=== PATIENT | male | born 1955 | race Caucasian/White ===

== ENCOUNTER 2020-02-06 09:22 | Outpatient (CLI) | payer MEDICARE, SELFPAY ==
[2020-02-06 09:58] LABS: Cholesterol 94 mg/dL (0-200); HDL Direct 26 mg/dL; Triglycerides 102 mg/dL (<150)
[2020-02-06 10:10] LABS: LDL Cholesterol Direct 40 mg/dL
== END 2020-02-06 09:23 | disposition home or self-care (01) ==
PROVIDERS: PCP Internal Medicine; Visit Provider Nurse Practitioner Adult Health
DX: E11.69 Type 2 diabetes mellitus with other specified complication (principal); E78.5 Hyperlipidemia, unspecified
CPT/HCPCS: 36415; 80061

== ENCOUNTER 2020-05-25 13:33 | Outpatient (CLI) | payer MEDICARE, SELFPAY ==
--- NOTE | ~2020-05-25 | US_ITS ---
EXAMINATION: US renal BI DATE: 05/25/2020 14:08 INDICATION: Stage IV chronic kidney disease. TECHNIQUE: Multiple ultrasound grayscale images of the kidneys were obtained. COMPARISON: None. FINDINGS: The right kidney measures 10.6 x 6.5 x 4.7 cm. The left kidney measures 11.1 x 5.4 x 4.7 cm. The kidn eys demonstrate normal echogenicity. 1.9 cm anechoic cyst at the lower pole of the right kidney. Ther e is no hydronephrosis in either kidney. No stones identified. The bladder is normal. IMPRESSION: 1. 1.9 cm right renal cyst. Otherwise normal kidneys without hydronephrosis. Reviewed, dictated and finalized at location A. GER SUPPLIER
== END 2020-05-25 13:34 | disposition home or self-care (01) ==
PROVIDERS: PCP Internal Medicine; Visit Provider Internal Medicine Nephrology
DX: N18.4 Chronic kidney disease, stage 4 (severe) (principal); E11.22 Type 2 diabetes mellitus with diabetic chronic kidney disease; N28.1 Cyst of kidney, acquired
CPT/HCPCS: 76775

== ENCOUNTER 2020-08-15 13:27 | Outpatient (CLI) | payer MEDICARE, SELFPAY | END 2020-08-15 13:28 | disposition home or self-care (01) | PROVIDERS: PCP Internal Medicine | DX: Z23 Encounter for immunization (principal) | CPT/HCPCS: 0001A; 91300 ==

== ENCOUNTER 2020-09-05 13:11 | Outpatient (CLI) | payer MEDICARE, SELFPAY | END 2020-09-05 13:12 | disposition home or self-care (01) | LOC: ANHCOVIDVC 13:11 | PROVIDERS: PCP Internal Medicine | DX: Z23 Encounter for immunization (principal) | CPT/HCPCS: 0002A; 91300 ==

== ENCOUNTER 2021-01-30 09:55 | Emergency (ER) | payer MEDICARE, SELFPAY ==
--- NOTE | ~2021-01-30 | XR_ITS ---
XR chest 1V 01/30/2021 10:22 Indication: Congestion. Low oxygen saturations. Procedure: AP view of the chest Comparison: Comparison to multiple prior studies sequentially, with oldest reviewed study dated 12/2015. Findings: Patchy bilateral airspace disease, compatible with pneumonia. Pacemaker leads stable. Small pleural effusions. No pneumothorax. No acute osseous abnormality. Impression: 1: Patchy bilateral airspace disease, compatible with pneumonia. Reviewed, dictated and finalized at location A. Impression: 1: Patchy bilateral airspace disease, compatible with pneumonia.
[2021-01-30 10:05] VITALS: BP 120/69; PULSE 83; RESP 16; TEMP 36.2; O2SAT 89
[2021-01-30 10:10] VITALS: O2SAT 88
[2021-01-30 10:28] VITALS: BP 120/69; PULSE 83; RESP 16; TEMP 36.2; O2SAT 89
--- NOTE | 2021-01-30 10:29 | ED.URI ---
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 Patient states he has a couple day history of shortness of breath that is worse with exertion. No fever measured, cough, calf pain/edema, med noncompliance, chest pain, loss of taste/smell, vomiting/diarrhea/dehydration. [id number] testing for Covid is negative; screening chest x-ray shows bilateral interstitial infiltrates consistent with pneumonia. Vital signs remarkable for hypoxemia 88%, quickly improved with O2t. Patient advised to go to hospital by EMS , which he agrees. Related Data Home Medications Medication Instructions Recorded Confirmed albuterol sulfate 90 mcg/actuation 1 puff INHALATION Q4H PRN 05/09/19 01/30/21 aerosol inhaler allopurinol 100 mg tablet 100 mg PO BID 05/09/19 01/30/21 aspirin 81 mg tablet,delayed 81 mg PO DAILY 05/09/19 01/30/21 release ezetimibe 10 mg tablet 10 mg PO DAILY 05/09/19 01/30/21 furosemide 40 mg tablet 20 mg PO QAM tablet 05/09/19 01/30/21 nitroglycerin 0.4 mg sublingual 0.4 mg SUBLINGUAL Q5M PRN 05/09/19 01/30/21 tablet cholecalciferol (vitamin D3) 125 5,000 unit PO BID cap 02/07/20 01/30/21 mcg (5,000 unit) capsule carvedilol 25 mg tablet 12.5 mg PO Q12H tablet 10/08/20 01/30/21 clopidogrel 75 mg tablet 75 mg PO DAILY 10/08/20 01/30/21 tamsulosin 0.4 mg capsule 0.4 mg PO DAILY 10/08/20 01/08/21 prednisolone acetate 1 drp EACH EYE DAILY 01/30/21 01/30/21 Allergies Allergy/AdvReac Type Severity Reaction Status Date / Time enalapril Allergy Unknown COUGH Verified 01/30/21 10:13 Iodinated Contrast Media Allergy Unknown Hives Verified 01/30/21 10:13 Contrast Media Allergy Unknown RASH Uncoded 01/30/21 10:13 Review of Systems Review of Systems: General/Constitutional: No weight loss,fever Eyes: N0: Redness,discharge Ears/Nose/Throat: No: Epistaxis,ear discharge Respiratory: Denies: Hemoptysis Gastrointestinal: No Vomiting, Bleeding-rectal Skin: No Lumps, eruption Neurologic: No Focal Weakness,Sz Hematologic: Denies: Petechiae/Purpura Psychiatric: No: Suicida ideationl All Other Systems: Reviewed and Negative [facility] Past Medical History Medical History Chronic kidney disease (CKD) stage G5/A3, glomerular filtration rate (GFR) less than or equal to 15 mL/min/1.73 square meter and albuminuria creatinine ratio greater than 300 mg/g CKD stage 4 due to type 2 diabetes mellitus COPD (chronic obstructive pulmonary disease) Coronary artery disease Diabetes mellitus Hyperlipidemia, unspecified Hypertension Non compliance with medical treatment Surgical History Surgical History History of ankle surgery Left Status post cardiac pacemaker procedure Status post insertion of drug-eluting stent into left anterior descending (LAD) artery for coronary artery disease Family History Family History Father Family history of premature coronary heart disease, Onset Age: 53 Cerebrovascular accident Patient's father is Diabetes mellitus Hypertension Family history of cardiovascular disease Sibling Carcinoma of colon, Onset Age: 39 Mother Patient's mother is , Onset Age: 73 Social History Social History Smoking status: Never smoker Alcohol intake: never Gender identity (if verbalized by the patient): Male Comments General/Constitutional: No weight loss,fever Eyes: N0: Redness,discharge Ears/Nose/Throat: No: Epistaxis,ear disch
[2021-01-30 10:40] VITALS: PULSE 83; RESP 20; O2SAT 99
--- NOTE | 2021-01-30 14:44 | ECG_ITS ---
Measurements Intervals [place] Rate: 82 P: 46 MD: 154 QRS: -19 QRSD: 98 T: 3 QT: 366 QTc: 430 Interpretive Statements SINUS RHYTHM INFERIOR INFARCT, AGE INDETERMINATE BORDERLINE ST-T WAVE ABNORMALITY- ANTEROLAT/HIGH LAT LEADS BASELINE ARTIFACT- I, II, III, AVR, AVL, AVF, V1-V6 ABNORMAL ECG Electronically Signed On 01-30-2021 15:16:01 CDT by William Mayfield D.O.
== END 2021-01-30 10:51 | disposition short-term general hospital (02) ==
PROVIDERS: Emergency Provider Emergency Medicine; PCP Internal Medicine
DX: R09.02 Hypoxemia (principal); R91.8 Other nonspecific abnormal finding of lung field; Z20.822 Contact with and (suspected) exposure to COVID-19; I13.11 Hypertensive heart and chronic kidney disease without heart failure, with stage 5 chronic kidney disease, or end stage renal disease; E11.22 Type 2 diabetes mellitus with diabetic chronic kidney disease; N18.5 Chronic kidney disease, stage 5; J44.9 Chronic obstructive pulmonary disease, unspecified; I25.10 Atherosclerotic heart disease of native coronary artery without angina pectoris; E78.5 Hyperlipidemia, unspecified; Z95.5 Presence of coronary angioplasty implant and graft; Z95.810 Presence of automatic (implantable) cardiac defibrillator
CPT/HCPCS: 71045; 87426; 93005; 99215; C9803; G0463

== ENCOUNTER 2021-01-30 11:05 | Observation (INO) | payer MEDICARE, SELFPAY ==
[2021-01-30] VITALS (21 sets, daily range): BP systolic 152–174; BP diastolic 71–95; PULSE 84–95; RESP 12–26; TEMP 36.4–37; O2SAT 90–100; BMI 32.6
--- NOTE | ~2021-01-30 | US_ITS ---
EXAMINATION: US renal BI DATE: 01/31/2021 14:01 INDICATION: Decreased kidney function. TECHNIQUE: Multiple ultrasound grayscale images of the kidneys were obtained. COMPARISON: Ultrasound 05/25/2020 FINDINGS: The right kidney measures 9.3 x 5.8 x 5.9 cm. The left kidney measures 11.1 x 5.6 x 5.9 cm. The kidne ys demonstrate normal parenchymal echogenicity. There is a 3.3 cm cyst in right kidney. There is no h ydronephrosis. The bladder is normal. IMPRESSION: 1. Normal kidney sizes. No hydronephrosis. Reviewed, dictated and finalized at location B.
--- NOTE | ~2021-01-30 | NM_ITS ---
EXAMINATION: NM pulmonary perfusion DATE: 01/30/2021 14:22 INDICATION: Shortness of breath TECHNIQUE: 5.4 mCi Tc-99m MAA by intravenous route. Scintigraphic images of the chest were obtained. COMPARISON: Chest radiograph dated 01/30/2021 FINDINGS: There is relatively homogeneous perfusion throughout the lungs. No discrete ventilation perfusion de fects identified. IMPRESSION: 1. Normal study. Low probability for pulmonary embolism. Reviewed, dictated and finalized at location A.
--- NOTE | ~2021-01-30 | CT_ITS ---
EXAMINATION: CT diagnostic chest wo con DATE: 01/30/2021 23:26 INDICATION: Pneumonia TECHNIQUE: Computed tomography (CT) of the chest was performed without intravenous contrast. Automate d exposure control and iterative reconstruction technique were employed. Exam dose: 357.76 mGy-cm to magdalena exam DLP. COMPARISON: 01/30/2021 pulmonary perfusion scan 01/30/2021 portable AP chest 04/01/2019 CT chest FINDINGS: Left-sided pacemaker device with leads in right atrium and right ventricle. Bilateral gynecomastia. Cardiomegaly. No pericardial or pleural effusion Prominent coronary artery calcification. There is thoracic aortic and great vessel calcification. No thoracic aortic aneurysm. There are patchy bilateral pulmonary infiltrates, most prominent in the upper lobes, right greater th an left There is mild atelectasis at the lung bases. Moderate elevation of the right leaf of the diaphragm. Multiple hepatic and calcified splenic granulomas consistent with old granulomatous disease. Normal morphology of the adrenal glands. Included skeletal structures are unremarkable. IMPRESSION: Extensive patchy bilateral pulmonary infiltrates, with upper lobe predominance, right gr eater than left, most likely due to bilateral pneumonia Reviewed, dictated and finalized at Location A. Reviewed, dictated and finalized at location A. IMPRESSION: Extensive patchy bilateral pulmonary infiltrates, with upper lobe predominance, right greater than left, most likely due to bilateral pneumonia
--- NOTE | 2021-01-30 11:11 | ECG_ITS ---
Measurements Intervals [place] Rate: 85 P: 40 SC: 151 QRS: -21 QRSD: 101 T: 10 QT: 375 QTc: 446 Interpretive Statements SINUS RHYTHM INFERIOR INFARCT, AGE INDETERMINATE BORDERLINE ST-T WAVE ABNORMALITY- LAT/HIGH LAT LEADS BASELINE ARTIFACT- I, II ABNORMAL ECG Electronically Signed On 01-30-2021 11:17:22 CDT by William Mayfield D.O.
--- NOTE | 2021-01-30 11:43 | ED.GENADULT ---
HPI - General Adult General Chief complaint: Shortness of Breath/Dyspnea Stated complaint: DIFFICULTY BREATHING Time Seen by Provider: 01/30/21 11:05 Source: patient History of Present Illness HPI narrative: Patient is a 65 y/o male complaining of severe SOB since last week. He states that inhaler helps somewhat. He also has some cough and chest pain. He describes his chest pain as a pressure in mid sternal area. He rates his chest pain as 4/10. He was seen at urgent and was found to be hypoxic with sat in 80s. He was placed on O2 and sent here by EMS. CXR done at urgent care showed bilateral infiltrates. Related Data Home Medications Medication Instructions Recorded Confirmed albuterol sulfate 90 mcg/actuation 1 puff INHALATION Q4H PRN 05/09/19 01/30/21 aerosol inhaler allopurinol 100 mg tablet 100 mg PO BID 05/09/19 01/30/21 aspirin 81 mg tablet,delayed 81 mg PO DAILY 05/09/19 01/30/21 release ezetimibe 10 mg tablet 10 mg PO DAILY 05/09/19 01/30/21 furosemide 40 mg tablet 20 mg PO QAM tablet 05/09/19 01/30/21 nitroglycerin 0.4 mg sublingual 0.4 mg SUBLINGUAL Q5M PRN 05/09/19 01/30/21 tablet cholecalciferol (vitamin D3) 125 5,000 unit PO BID cap 02/07/20 01/30/21 mcg (5,000 unit) capsule carvedilol 25 mg tablet 25 mg PO Q12H tablet 10/08/20 01/30/21 clopidogrel 75 mg tablet 75 mg PO DAILY 10/08/20 01/30/21 tamsulosin 0.4 mg capsule 0.4 mg PO DAILY 10/08/20 01/30/21 prednisolone acetate 1 drp EACH EYE DAILY 01/30/21 01/30/21 Allergies Allergy/AdvReac Type Severity Reaction Status Date / Time enalapril Allergy Unknown COUGH Verified 01/30/21 16:48 Iodinated Contrast Media Allergy Unknown Hives Verified 01/30/21 16:48 Contrast Media Allergy Unknown RASH Uncoded 01/30/21 16:48 Review of Systems Constitutional: Constitutional: Denies chills, Denies fever(s), Denies headache(s) and Denies weakness Eyes: Eyes: Denies blurry vision ENT: Denies headache(s) and Denies neck pain Cardiovascular: Cardiovascular: Reports chest pain and Reports dyspnea Respiratory: Respiratory: Reports cough and Reports dyspnea Gastrointestinal: Gastrointestinal: Denies abdominal pain, Denies diarrhea, Denies nausea and Denies vomiting Genitourinary: Genitourinary: Denies hematuria and Denies dysuria Musculoskeletal: Musculoskeletal: Denies back pain and Denies neck pain Neurologic: Denies headache(s) and Denies weakness [facility] Past Medical History Medical History Chronic kidney disease (CKD) stage G5/A3, glomerular filtration rate (GFR) less than or equal to 15 mL/min/1.73 square meter and albuminuria creatinine ratio greater than 300 mg/g CKD stage 4 due to type 2 diabetes mellitus COPD (chronic obstructive pulmonary disease) Coronary artery disease Diabetes mellitus Hyperlipidemia, unspecified Hypertension Non compliance with medical treatment Surgical History Surgical History History of ankle surgery Left Status post cardiac pacemaker procedure Status post insertion of drug-eluting stent into left anterior descending (LAD) artery for coronary artery disease Family History Family History Father Family history of premature coronary heart disease, Onset Age: 53 Cerebrovascular accident Patient's father is Diabetes mellitus Hypertension Family history of cardiovascular disease Sibling Carcinoma of colon, Onset Age: 39 Mother Patient's mother is , Onset Age: 73 Social History Social History Smoking status: Former smoker Tobacco type: cigarettes Additional smoking assessment comments: Patient reports he smoked very little for 2 months while a teenager Alcohol intake: never Gender identity (if verbalized by the patient): Male Exam Const: General: n
[2021-01-30 11:49] LABS: Basophils Percent Auto 0.2 % (0.2-1.2); Hematocrit 27.8 % (42.0-52.0); Hemoglobin 8.9 g/dL (14.0-18.0); Immature Granulocyte Absolute 0.04 K/mm3 (0.00-0.031); Immature Granulocyte Percent A 0.4 % (0-0.5); Lymphocytes Absolute Auto 1.06 K/mm3 (0.9-3.2); Lymphocytes Percent Auto 10.8 % (18.3-44.2); Mean Corpuscular Hemoglobin 31.3 pg (26-34); Mean Corpuscular Volume 97.9 fl (80-100); Monocytes Percent Auto 9.9 % (2.6-8.5); Neutrophils Absolute Auto 7.7 K/mm3 (1.3-6.7); Neutrophils Percent Auto 78.7 % (45.5-73.1); Platelet Count Result 170 k/mm3 (150-375); Red Blood Count 2.84 M/mm3 (4.6-6.20); Red Cell Distribution Width 14.8 % (11.5-14.5); White Blood Count 9.8 K/mm3 (4.5-10.0)
[2021-01-30 12:05] LABS: D Dimer 0.93 ug/mL (<0.48)
[2021-01-30 12:06] LABS: Alanine Aminotransferase 23 U/L (4-50); Albumin Level 3.5 g/dL (3.5-5.1); Alkaline Phosphatase 83 U/L (38-126); Anion Gap 4 mmol/L (8-16); Aspartate Amino Transferase 31 U/L (17-59); Bilirubin,Total 0.9 mg/dL (0.2-1.3); Blood Urea Nitrogen 55 mg/dL (9-20); Calcium 8.2 mg/dL (8.4-10.2); Carbon Dioxide 26 mmol/L (22-30); Chloride 109 mmol/L (98-107); Estimated CRCL calculation 22 ml/min; Estimated Glomerular Filt Rate 16; Glucose 100 mg/dL (65-110); Potassium 4.5 mmol/L (3.4-5.0); Sodium 139 mmol/L (137-145)
[2021-01-30 12:09] LABS: NT Pro B Type Natriuretic Pept 5460 pg/mL (5-100)
[2021-01-30 12:24] LABS: Troponin I 0.047 ng/mL (0.000-0.034)
[2021-01-30] MEDS: FUROSEMIDE INJ 40 MG/4 ML VIAL IV PUSH (13:21)
[2021-01-30 15:13] LABS: Troponin I 0.049 ng/mL (0.000-0.034)
--- NOTE | 2021-01-30 16:58 | PC.NURSE ---
Pt. requesting Rn update Tabatha that he will be staying in hospital . Tabatha notified
--- NOTE | 2021-01-30 17:00 | ADMGEN ---
This patient, Freddie Valero, was admitted to IMU Room 209-. Patient/family oriented to hospital policies and general routines including ID bracelet, bed and alarms, visiting hours, pain management, procedures, bathroom and other care routines, personal items, smoking policy, room service/diet, and visiting hours. Information on how to activate the Rapid Response Team has been discussed. Patient/Family are encouraged to report perceived risks to care and to ask questions if they do not understand what they are told or what they should do.
[2021-01-30 17:31] LABS: Glucose Point of Care 82 mg/dl (65-105)
[2021-01-30 18:26] LABS: Troponin I 0.047 ng/mL (0.000-0.034)
--- NOTE | 2021-01-30 19:42 | PM.IMHP ---
H&P: HPI History of Present Illness Date/Time: 01/30/21 19:42 Chief Complaint: Shortness of breath Narrative: Patient is a 65 y/o male who presents to the ED after being referred from urgent care. He reports he has been having shortness of breath over the past week which has been progressively getting worse. He has also describes a chest pressure which he had in the midsternal area this morning. He rates the chest pain at 4/10. He denies any leg swelling. He does report cough with whitish phlegm for the past several weeks now. No wheezing. He also reports mild grade fever that he had noticed as he normally is around 97? however was noted to have 99? temperature at home. In the urgent care his reported he was hypoxic with saturation in 80s he is placed on oxygen and was sent to ER for evaluation. Chest x-ray done in urgent care showed bilateral infiltrates. The result is not available for me to review. His WBC count was normal at 9.8 in the ED hemoglobin 8.9 which is about similar from the previous lab values. EKG had nonspecific ST-T changes which looked similar to previous EKGs in the past. His troponin was mildly elevated and BNP was 5460 D-dimer was elevated for which nuclear lung scan was done which was with low probability of for PE. He had chest x-ray which showed patchy bilateral airspace disease compatible with pneumonia. He is admitted for further evaluation and management. Review of Systems Review of Systems: - CONSTITUTIONAL: Denies weight loss, fever and chills. - HEENT: Denies changes in vision and hearing - RESPIRATORY: Reports SOB and cough. - CV: Denies palpitations and reports CP. - GI: Denies abdominal pain, nausea, vomiting and diarrhea. - : Denies dysuria and urinary frequency. - MSK: Denies myalgia and joint pain. - SKIN: Denies rash and pruritus. - NEUROLOGICAL: Denies headache and syncope. - PSYCHIATRIC: Denies recent changes in mood. Denies anxiety and depression. All systems reviewed & are unremarkable except as noted in HPI and below Constitutional: Constitutional: Reports fatigue and Reports weakness Neurologic: Reports weakness Endocrine: Endocrine: Reports fatigue PMFSH Past Medical History Medical History Chronic kidney disease (CKD) stage G5/A3, glomerular filtration rate (GFR) less than or equal to 15 mL/min/1.73 square meter and albuminuria creatinine ratio greater than 300 mg/g CKD stage 4 due to type 2 diabetes mellitus COPD (chronic obstructive pulmonary disease) Coronary artery disease Diabetes mellitus Hyperlipidemia, unspecified Hypertension Non compliance with medical treatment Surgical History Surgical History History of ankle surgery Left Status post cardiac pacemaker procedure Status post insertion of drug-eluting stent into left anterior descending (LAD) artery for coronary artery disease Family History Family History Father Family history of premature coronary heart disease, Onset Age: 53 Cerebrovascular accident Patient's father is Diabetes mellitus Hypertension Family history of cardiovascular disease Sibling Carcinoma of colon, Onset Age: 39 Mother Patient's mother is , Onset Age: 73 Social History Social History Smoking status: Former smoker Tobacco type: cigarettes Additional smoking assessment comments: Patient reports he smoked very little for 2 months while a teenager Alcohol intake: never Substance use: never Gender identity (if verbalized by the patient): Male Spiritual care concerns: No Meds Home Medications and Allergies Home Medications Medication Instructions Recorded Confirmed Type albuterol sulfate 90 mcg/actuation 1 puff INHALATION Q4H PRN 05/09/19 08
[2021-01-30 20:46] LABS: Glucose Point of Care 143 mg/dl (65-105)
[2021-01-30] MEDS: allopurinoL 100 MG TABLET PO (21:03)
[2021-01-30] MEDS: CHOLECALCIFEROL 1,000 UNITS TABLET 5000 UNITS PO (21:03)
[2021-01-30] MEDS: carvediloL 25 MG TABLET PO (21:03)
[2021-01-31] VITALS (17 sets, daily range): BP systolic 143–180; BP diastolic 76–82; PULSE 77–85; RESP 12–18; TEMP 36.3–37.6; O2SAT 92–99
--- NOTE | 2021-01-31 | ECHO_ITS ---
Patient Info Name: Freddie Valero Age: 65 years : 1955 Gender: Male Ht: 70 in Wt: 227 lbs BSA: 2.29 m2 HR: 81 bpm BP: 175 / 80 mmHg Heart Rhythm: Sinus Rhythm Exam Date: 02/01/2021 9:32 AM Exam Location: [facility] Patient Status: Outpatient Admit Date: 01/30/2021 Staff Ordering Physician: Chente Cochran MD Pcb Design Engineer: Johnathon Wesley, NIDA, RT Attending Provider: Le Osman MD Exam Type: CA echo doppler color flow Study Info Indications I50.9 - Heart failure, unspecified Complete two-dimensional, color flow and Doppler transthoracic echocardiogram is performed with contrast to opacify the left ventricle and to improve the deliniation of the left ventricle endocardial borders. Summary 1. Left ventricular systolic function is normal, estimated at 55%. 2. There is moderately increased left ventricular wall thickness. 3. The left ventricular diastolic function is grade I diastolic dysfunction. 4. Left atrial chamber dimension is mildly enlarged. 5. There is mild mitral valve regurgitation. 6. There is trace tricuspid valve regurgitation. 7. Unable to estimate PA systolic pressure due to poor spectral resolution of tricuspid regurgitant jet velocity. Left Ventricle Left ventricular chamber dimension is normal. Left ventricular systolic function is normal, estimated at 55%. There is moderately increased left ventricular wall thickness. The left ventricular diastolic function is grade I diastolic dysfunction. Right Ventricle Right ventricular chamber dimension is normal. Right ventricular systolic function is normal. Linear artifact in right ventricle suggestive of catheter(s), pacemaker lead(s), or ICD lead(s). Left Atria Left atrial chamber dimension is mildly enlarged. Right Atria Right atrial chamber dimension is normal. Linear artifact in the right atrium suggestive of catheter(s), pacemaker lead(s), or ICD lead(s). Aortic Valve The aortic valve is trileaflet. There is mild aortic valve sclerosis. There is no aortic valve stenosis. There is no aortic valve regurgitation. Pulmonic Valve The pulmonic valve is not well visualized. There is trace pulmonic regurgitation. Mitral Valve The mitral valve has normal leaflets. There is mild mitral valve regurgitation. The mitral valve annulus is moderately calcified. Tricuspid Valve The tricuspid valve leaflets are normal. There is trace tricuspid valve regurgitation. Unable to estimate PA systolic pressure due to poor spectral resolution of tricuspid regurgitant jet velocity. Pericardium/Pleural The pericardium appears normal. There is small pericardial effusion. Aorta The aortic root size at the sinus of Valsalva is normal. There is mild aortic atherosclerosis. Left Ventricular Outflow Tract Name Value Normal LVOT 2D LVOT Diameter 2.1 cm LVOT Doppler LVOT Peak Gradient 4 mmHg LVOT Mean Gradient 2 mmHg LVOT VTI 22 cm LVOT VTI/AV VTI Ratio 0.9 LVOT Stroke Volume 73
--- NOTE | 2021-01-31 07:18 | PM.CNNEP ---
Assessment and Plan Assessment and plan (1) Chronic kidney disease, stage 4 (severe): Code(s): N18.4 - Chronic kidney disease, stage 4 (severe) Status: Acute Assessment and Plan: The patient has chronic kidney disease stage. His baseline GFR is around 20. This is due to diabetes and hypertension. The patient has a higher creatinine than baseline right now. This is most likely due to pneumonia. He could also have rhabdomyolysis because of his illness and he is on a statin. So will check a CPK just in case. He is not on any new medications so I doubt that this is allergic interstitial nephritis. Obstruction is always a possibility so will get a renal ultrasound. Other possibilities include glomerulonephritis and vascular disease however these are less likely in this clinical scenario. (2) Pneumonia: Code(s): J18.9 - Pneumonia, unspecified organism Status: Acute Assessment and Plan: The patient has bilateral pneumonia. He is getting antibiotics and supportive care. (3) Hypertension: Code(s): I10 - Essential (primary) hypertension Status: Acute Assessment and Plan: His blood pressure was high on admission, possibly because of his illness . He is back on his home medications. His blood pressure seems a little better. Will keep an eye on this. (4) Type 2 diabetes mellitus with hyperglycemia, with long-term current use of insulin: Code(s): E11.65 - Type 2 diabetes mellitus with hyperglycemia; Z79.4 - director long term care (current) use of insulin Status: Acute Assessment and Plan: On Accu-Cheks and sliding-scale insulin (5) Coronary artery disease: Qualifiers: Coronary Disease-Associated Artery/Lesion type: [place] artery [place] vs. transplanted heart: [place] heart Associated angina: without angina Qualified Code(s): I25.10 - Atherosclerotic heart disease of [place] coronary artery without angina pectoris Code(s): I25.10 - Atherosclerotic heart disease of [place] coronary artery without angina pectoris Status: Acute Assessment and Plan: No chest pain right now. (6) Hyperlipidemia, unspecified: Code(s): E78.5 - Hyperlipidemia, unspecified Status: Acute Assessment and Plan: He is on atorvastatin History of Present Illness Reason for Consult Consult date: 01/31/21 Chief Complaint Chief complaint: chf,hypoxia History of Present Illness Narrative: Freddie is a very pleasant 65-year-old gentleman who has chronic kidney disease stage 4, diabetes, hypertension, coronary disease status post SD, stroke, and hyperlipidemia. I last saw him in the office in November when his GFR was around 20 and his creatinine was around 3. He has a history of noncompliance however lately his A1c has been better and his blood pressures been doing pretty well. The patient says that his trouble started day before yesterday when he started getting short of breath. He did not have a cough. He did have a little bit of a fever. He says he usually runs around 97 but he was 98.9. The patient's has been good with his low-salt diet. He does not have much swelling. He described substernal chest pressure yesterday morning but that is gone today. Nobody else in his house is sick. Yesterday he did not get better so he went to urgent care and his oxygen was only 80%. So he was sent over to [place] ER and admitted. and this was negative. The patient was evaluated in the ER. COVID test was negative. V/Q scan was low probability. Chest x-ray showed bilateral pneumonia. He was admitted and placed on antibiotics. He was placed on oxygen as well. His O2 sats are currently okay. Currently the patient feels a little bit better. He still short of breath but feels more comfortable with the oxygen. He is not having any chest pain. He has no bloody, foamy, or painful urination. No history of kidney stones or bladder infections. He has not gotten itto
[2021-01-31] MEDS: CHOLECALCIFEROL 1,000 UNITS TABLET 5000 UNITS PO ×2 (07:59→16:29)
[2021-01-31] MEDS: FUROSEMIDE 20 MG TABLET PO (08:00)
[2021-01-31] MEDS: EZETIMIBE 10 MG TABLET PO (08:00)
[2021-01-31] MEDS: carvediloL 25 MG TABLET PO ×2 (08:00→20:32)
[2021-01-31] MEDS: CLOPIDOGREL BISULFATE 75 MG TABLET PO (08:00)
[2021-01-31] MEDS: TAMSULOSIN HCL 0.4 MG CAPSULE PO (08:00)
[2021-01-31] MEDS: ASPIRIN 81 MG ENTERIC TABLET PO (08:00)
[2021-01-31] MEDS: allopurinoL 100 MG TABLET PO ×2 (08:00→16:29)
[2021-01-31] MEDS: LOSARTAN POTASSIUM 50 MG TABLET PO (08:00)
[2021-01-31] MEDS: amLODIPine BESYLATE 2.5 MG TABLET PO (08:00)
[2021-01-31] MEDS: ATORVASTATIN 40 MG TABLET 80 MG PO (08:00)
[2021-01-31] MEDS: prednisoLONE ACETATE 1% OPHTH 5 ML 1 DROP EACH EYE (08:01)
[2021-01-31 08:38] LABS: Creatine Kinase 64 U/L (55-170)
[2021-01-31 08:55] LABS: Glucose Point of Care 76 mg/dl (65-105)
--- NOTE | 2021-01-31 11:06 | PM.IMPN ---
Progress Note: A&P Assessment and Plan (1) Acute respiratory failure with hypoxia: Code(s): J96.01 - Acute respiratory failure with hypoxia Status: Acute Assessment and Plan: Patient presents feeling short of breath. He has been requiring 1-2 L/min of oxygen since admission. More likely related to pneumonia than CHF. V/Q scan was low probability for PE. Continue IV antibiotics. Add nebulizer treatments. Aspiration unlikely given the upper lobe predominance. (2) Pneumonia: Code(s): J18.9 - Pneumonia, unspecified organism Status: Acute Assessment and Plan: No fevers at home or here. White count normal. Minimal cough. Chest x-ray showed patchy bilateral airspace disease compatible with pneumonia. CT scan showed extensive patchy bilateral pulmonary infiltrates with upper lobe predominance right greater than left most likely due to bilateral pneumonia. Most likely pneumonia although patient with minimal symptoms despite the radiographic findings. Blood cultures are no growth to date. Check sputum. Check urine for Legionella and pneumococcal antigens. Continue Rocephin and azithromycin. Rapid COVID test was negative. Will check PCR to exclude COVID. (3) Elevated troponin: Code(s): R77.8 - Other specified abnormalities of plasma proteins Status: Acute Assessment and Plan: Troponin mildly elevated 0.049 but essentially flat. EKG shows old inferior OK but no acute ischemic changes but does have borderline ST T wave changes in the in the high lateral leads. Will check echocardiogram. Continue Lipitor, Plavix, aspirin and beta-smita (4) CKD (chronic kidney disease): Qualifiers: Chronic kidney disease stage: unspecified stage Qualified Code(s): N18.9 - Chronic kidney disease, unspecified Code(s): N18.9 - Chronic kidney disease, unspecified Status: Acute Assessment and Plan: Baseline creatinine back in September was 3.5. Patient currently with creatinine of 3.7 on admission. Patient states he is close to dialysis. Nephrology consulted and appreciate their input. (5) Hypertension: Code(s): I10 - Essential (primary) hypertension Status: Acute Assessment and Plan: Patient's blood pressure was reviewed on 01/31 Blood pressure has been mostly elevated with systolic blood pressure 1 40-170 since admission. Home Norvasc, Coreg and Cozaar resumed. Will continue current medications. Consider advancing Norvasc if blood pressure remains elevated. (6) Type 2 diabetes mellitus with hyperglycemia, with long-term current use of insulin: Code(s): E11.65 - Type 2 diabetes mellitus with hyperglycemia; Z79.4 - half-way (current) use of insulin Status: Acute Assessment and Plan: The patient's blood glucose was reviewed on 01/31 Glucose remains well controlled. Continue AccuCheks covering with sliding scale. Hypoglycemia protocol available as needed. Continue current medications. (7) Coronary artery disease: Qualifiers: Associated angina: without angina Coronary Disease-Associated Artery/Lesion type: [place] artery [place] vs. transplanted heart: [place] heart Qualified Code(s): I25.10 - Atherosclerotic heart disease of [place] coronary artery without angina pectoris Code(s): I25.10 - Atherosclerotic heart disease of [place] coronary artery without angina pectoris Status: Acute Assessment and Plan: Stable. Denies chest pain. Continue Lipitor, Plavix, aspirin and Coreg. (8) COVID-19 ruled out: Code(s): Z20.822 - Contact with and (suspected) exposure to COVID-19 Status: Acute Assessment and Plan: Rapid COVID test was negative on 01/30/21. COVID PCR was obtained for verification. Follow-up on results. (9) DVT prophylaxis: Code(s): Z29.9 - Encounter for prophylactic measures, unspecified Status: Acute Assessment and Plan: Heparin
[2021-01-31 11:48] LABS: Add Urine Microscopic? YES; Appearance Urine Clear (Clear); Bilirubin Urine Negative (Negative); Blood Urine Negative (Negative); Color Urine Straw (Yellow); Glucose Urine UA Negative (Negative); Ketones Urine Negative (Negative); Leukocyte Esterase Ur Negative LEU/UL (NEGATIVE); Nitrate Urine Negative (Negative); Protein Urine 3+ mg/dL (Negative); RBC Urine 0-2 /hpf (0-2); Specific Grav Ur 1.011 (1.001-1.035); Urobilinogen Urine Negative mg/dL (<2.0); WBC Urine 0-3 /hpf (0-3)
[2021-01-31 11:57] LABS: Creatinine Urine 59.6 mg/dL
[2021-01-31 12:20] LABS: Glucose Point of Care 72 mg/dl (65-105)
[2021-01-31 12:24] LABS: Sodium Urine Random 74 meq/L
--- NOTE | 2021-01-31 13:36 | PM.CNCAR ---
Assessment and Plan Assessment and plan (1) Acute respiratory failure with hypoxia: Code(s): J96.01 - Acute respiratory failure with hypoxia Status: Acute Assessment and Plan: Respiratory for problems with hypoxia and diffuse primarily upper lobe infiltrates associated with nasal congestion. There is no history of CHF. There is no edema or weight gain, or gallop rhythm, to suggest this is CHF. Does have an elevated BNP and, with his advanced chronic kidney disease, could have volume overload but this does not appear to be the case. His symptoms are probably from pneumonia. On antibiotic therapy. Repeat COVID screen pending. Will follow intermittently. (2) Coronary artery disease: Qualifiers: Coronary Disease-Associated Artery/Lesion type: [place] artery [place] vs. transplanted heart: [place] heart Associated angina: without angina Qualified Code(s): I25.10 - Atherosclerotic heart disease of [place] coronary artery without angina pectoris Code(s): I25.10 - Atherosclerotic heart disease of [place] coronary artery without angina pectoris Status: Acute Assessment and Plan: History of CAD. Does have some chest heaviness and elevated troponins but the troponins are flat and the heaviness is atypical. No ischemic changes on EKG. Stable CAD. (3) Chronic kidney disease, stage 4 (severe): Code(s): N18.4 - Chronic kidney disease, stage 4 (severe) Status: Acute History of Present Illness History of Present Illness Consult date/time: 01/31/21 13:36 Reason For Visit: chf,hypoxia Narrative: Date of service 01/31/2021 Mr. Freddie Valero is a 65-year-old white male whom I was asked to see at the request of the hospitalist Dr. Jagdeep Rivera for my advice and opinion regarding congestive heart failure in consultation. He has a history of pacemaker, CAD, and CKD stage [address] Paiz. Also: hypertension and hyperlipidemia as well as orthostasis. The patient has had progressive shortness of breath for the past week as well as some chest pressure. He thought he had a cold or sinus infection as he had a lot of nasal congestion and postnasal drip resulting in mild cough. Thursday night he ?thought I was going to ? because of shortness of breath and uses rescue inhaler for relief. He went to the emergency room yesterday, 01/30/2021. His O2 sat was in 80s and he was admitted from the emergency room. His chest x-ray shows a patchy infiltrates. COVID screen was negative at the urgent care and is being repeated. He denies any edema, weight gain, PND orthopnea. The chest discomfort felt like someone was sitting on his chest but was constant without aggravating or relieving factors. I follow Mr. 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 He also has a history of stroke in 2017, COPD, CKD stage for followed by Dr. Paiz, hypertension, diabetes and hyperlipidemia. Echocardiogram in 2017 showed an ejection fraction 51%, mild LVH, diastolic dysfunction and hypokinesis of the basal inferior septal segment. Lexiscan in 2019 showed a moderate size fixed inferior [place], no ischemia, EF 53%. Patient's , Tabatha, has dementia and he is worried about her care in his absence. Review of Systems Constitutional: Constitutional: Reports fatigue, Reports lethargy and Reports weakness Comments: Thinks he may have a low-grade fever as his temperature is 1 degree higher than his usual temperature. Eyes: Eyes: Reports no additional eye complaints ENT: Denies epistaxis, Reports nasal congestion and Reports nasal discharge Cardiovascular: Cardiovascular: Reports chest pain (Constant heaviness), Denies pedal edema, Denies leg edema and
[2021-01-31 14:51] LABS: Total Protein Urine Random 320 mg/dL; Ur Ttl Prot Creatinine Ratio 5.37 mg/mg (0-0.20)
[2021-01-31] MEDS: INSULIN ASPART (*BKC) 100 UNITS/ML 8 UNITS SUB-Q (16:29)
[2021-01-31 17:13] LABS: SARS-CoV-2 RNA PCR Negative
[2021-01-31 17:37] LABS: Glucose Point of Care 240 mg/dl (65-105)
[2021-01-31] MEDS: HEPARIN SODIUM 5,000 UNITS/ML VIAL 5000 UNITS SUB-Q (20:31)
[2021-01-31 21:07] LABS: Glucose Point of Care 127 mg/dl (65-105)
[2021-02-01] VITALS (20 sets, daily range): BP systolic 84–179; BP diastolic 48–83; PULSE 72–101; RESP 16–20; TEMP 36.6–37.2; O2SAT 92–100
[2021-02-01 05:19] LABS: Hematocrit 25.6 % (42.0-52.0); Hemoglobin 8.4 g/dL (14.0-18.0); Mean Corpuscular HGB Conc 32.8 g/dl (32-36); Mean Corpuscular Hemoglobin 31.3 pg (26-34); Mean Corpuscular Volume 95.5 fl (80-100); Mean Platelet Volume 10.9 fl (7.4-10.4); Platelet Count Result 171 k/mm3 (150-375); Red Blood Count 2.68 M/mm3 (4.6-6.20); Red Cell Distribution Width 14.5 % (11.5-14.5); White Blood Count 6.8 K/mm3 (4.5-10.0)
[2021-02-01 06:25] LABS: Albumin Level 3.2 g/dL (3.5-5.1); Anion Gap 8 mmol/L (8-16); Blood Urea Nitrogen 62 mg/dL (9-20); Calcium 8.1 mg/dL (8.4-10.2); Carbon Dioxide 24 mmol/L (22-30); Chloride 103 mmol/L (98-107); Estimated CRCL calculation 20 ml/min; Estimated Glomerular Filt Rate 15; Glucose 105 mg/dL (65-110); Phosphorus 4.4 mg/dL (2.5-4.5); Sodium 135 mmol/L (137-145)
[2021-02-01] MEDS: FUROSEMIDE 20 MG TABLET PO (08:51)
[2021-02-01] MEDS: TAMSULOSIN HCL 0.4 MG CAPSULE PO (08:52)
[2021-02-01] MEDS: LOSARTAN POTASSIUM 50 MG TABLET PO (08:52)
[2021-02-01] MEDS: CLOPIDOGREL BISULFATE 75 MG TABLET PO (08:52)
[2021-02-01] MEDS: CHOLECALCIFEROL 1,000 UNITS TABLET 5000 UNITS PO (08:52)
[2021-02-01] MEDS: carvediloL 25 MG TABLET PO (08:52)
[2021-02-01] MEDS: ATORVASTATIN 40 MG TABLET 80 MG PO (08:52)
[2021-02-01] MEDS: amLODIPine BESYLATE 5 MG TABLET PO (08:52)
[2021-02-01] MEDS: ASPIRIN 81 MG ENTERIC TABLET PO (08:52)
[2021-02-01] MEDS: EZETIMIBE 10 MG TABLET PO (08:52)
[2021-02-01] MEDS: INSULIN ASPART (*BKC) 100 UNITS/ML 8 UNITS SUB-Q (08:52)
[2021-02-01] MEDS: allopurinoL 100 MG TABLET PO (08:52)
[2021-02-01] MEDS: prednisoLONE ACETATE 1% OPHTH 5 ML 1 DROP EACH EYE (08:53)
[2021-02-01] MEDS: HEPARIN SODIUM 5,000 UNITS/ML VIAL 5000 UNITS SUB-Q (08:53)
[2021-02-01 09:23] LABS: Glucose Point of Care 93 mg/dl (65-105)
[2021-02-01] MEDS: PERFLUTREN LIPID MICROSPHERES 1.5 ML VIAL DILUTED TO 10 ML TOTAL VOLUME IV PUSH (10:10)
--- NOTE | 2021-02-01 10:30 | PM.PNCARD ---
Progress Note: A&P Assessment and Plan (1) Acute respiratory failure with hypoxia: Code(s): J96.01 - Acute respiratory failure with hypoxia Status: Acute Assessment and Plan: Respiratory for problems with hypoxia and diffuse primarily upper lobe infiltrates associated with nasal congestion. There is no history of CHF. There is no edema or weight gain, or gallop rhythm, to suggest this is CHF. Does have an elevated BNP and, with his advanced chronic kidney disease, could have volume overload but this does not appear to be the case. His symptoms are probably from pneumonia. On antibiotic therapy. Repeat COVID screen pending. Will follow intermittently. (2) Coronary artery disease: Qualifiers: Coronary Disease-Associated Artery/Lesion type: [place] artery [place] vs. transplanted heart: [place] heart Associated angina: without angina Qualified Code(s): I25.10 - Atherosclerotic heart disease of [place] coronary artery without angina pectoris Code(s): I25.10 - Atherosclerotic heart disease of [place] coronary artery without angina pectoris Status: Acute Assessment and Plan: History of CAD. Does have some chest heaviness and elevated troponins but the troponins are flat and the heaviness is atypical. No ischemic changes on EKG. Stable CAD. (3) Chronic kidney disease, stage 4 (severe): Code(s): N18.4 - Chronic kidney disease, stage 4 (severe) Status: Acute Subjective Date/time seen: 02/01/21 10:30 Cardiology follow up for CHF Date of service 02/01/2021: Review of Systems Constitutional: Constitutional: Reports fatigue, Reports lethargy and Reports weakness Eyes: Eyes: Reports no additional eye complaints ENT: Denies epistaxis, Reports nasal congestion and Reports nasal discharge Cardiovascular: Cardiovascular: Reports chest pain (Constant heaviness), Denies pedal edema, Denies leg edema, Denies lightheadedness, Reports dyspnea and Reports dyspnea on exertion Respiratory: Respiratory: Reports cough, Denies hemoptysis, Reports dyspnea and Reports dyspnea on exertion Gastrointestinal: Gastrointestinal: Denies abdominal pain and Denies hematochezia Genitourinary: Genitourinary: Denies hematuria and Denies dysuria Musculoskeletal: Musculoskeletal: Denies myalgias and Denies joint swelling Integumentary/Breasts: Skin/Breast: Denies rash Neurologic: Denies confusion and Reports weakness Psychiatric: Psychiatric: Reports no additional psychiatric complaints and Denies confusion Endocrine: Endocrine: Reports fatigue Exam Const: General: comfortable and no acute distress; No confusion Orientation/consciousness: No confusion HENMT: General nose exam: Epistaxis present Mouth: Yes moist mucous membranes Eyes: EOM: EOMs intact bilaterally Neck: Neck: supple and no JVD Thyroid: thyroid normal Carotids: no bruits Lymphatic: lymphadenopathy not noted Resp: Effort & Inspection: normal respiratory effort Auscultation: rales (Few fine scattered rales throughout) Cardio: Rate: regular rate Rhythm: regular rhythm Heart sounds: no murmurs GI: Inspection: non-distended Skin: General skin exam: normal color and no rashes or lesions noted Neuro: General: No confusion Cognition (Neuro): normal cognition Speech: normal speech Motor exam (neuro): Normal motor muscle tone present throughout Extrem: General: no edema and no pedal edema Psych: Mental Status: mental status grossly normal Affect: normal affect Objective Data Vital Signs Vital Signs: Vital Signs - 24 hr 01/31/21 12:00 01/31/21 14:00 01/31/21 15:08 Temperature 37.6 C H Pulse Rate 80 84 80 Respiratory Rate 12 16 Blood Pressure 180/82 H 146/76 H Pulse Oximetry 93 96 01/31/21 15:15 01/31/21 16:00 01/31/21 18:00 Temperature 37.1 C Pulse Rate 77 78 80 Respiratory Rate 18 18 Blood Pressure 167/82 H Pulse
--- NOTE | 2021-02-01 12:36 | PM.PNNEP ---
Progress Note: A&P Assessment and Plan (1) Chronic kidney disease, stage 4 (severe): Code(s): N18.4 - Chronic kidney disease, stage 4 (severe) Status: Acute Assessment and Plan: The patient has chronic kidney disease stage. His baseline GFR is around 20. This is due to diabetes and hypertension. The patient has a higher creatinine than baseline right now. CPK was normal. Urine electrolytes are non pre renal. His ultrasound was okay This is most likely due to pneumonia. the patient feels well. He is eager for discharge. It is okay from my standpoint for him to be discharged. He can check some lab work next week and see me in the office in about a month. (2) Pneumonia: Code(s): J18.9 - Pneumonia, unspecified organism Status: Acute Assessment and Plan: The patient has bilateral pneumonia. He is getting antibiotics and supportive care. (3) Hypertension: Code(s): I10 - Essential (primary) hypertension Status: Acute Assessment and Plan: His blood pressure was high on admission, possibly because of his illness . Increased amlodipine to 5. (4) Type 2 diabetes mellitus with hyperglycemia, with long-term current use of insulin: Code(s): E11.65 - Type 2 diabetes mellitus with hyperglycemia; Z79.4 - retirement (current) use of insulin Status: Acute Assessment and Plan: On Accu-Cheks and sliding-scale insulin (5) Coronary artery disease: Qualifiers: Coronary Disease-Associated Artery/Lesion type: [place] artery [place] vs. transplanted heart: [place] heart Associated angina: without angina Qualified Code(s): I25.10 - Atherosclerotic heart disease of [place] coronary artery without angina pectoris Code(s): I25.10 - Atherosclerotic heart disease of [place] coronary artery without angina pectoris Status: Acute Assessment and Plan: No chest pain right now. (6) Hyperlipidemia, unspecified: Code(s): E78.5 - Hyperlipidemia, unspecified Status: Acute Assessment and Plan: He is on atorvastatin Subjective Date/time seen: 02/01/21 12:36 Interval history: patient feels well. Minimal cough. No shortness of breath. Eating well. Review of Systems Cardiovascular: Cardiovascular: Reports no additional cardiovascular complaints Respiratory: Respiratory: Reports no additional respiratory complaints Gastrointestinal: Gastrointestinal: Reports no additional gastrointestinal complaints Genitourinary: Genitourinary: Reports no additional male genitourinary complaints Exam Narrative: WDWN in NAD skin no rash head ncat lungs clear cor reg no rub abd BS+ nontender and soft ext no edema. Objective Data Vital Signs Vital Signs: Vital Signs - 24 hr 01/31/21 14:00 01/31/21 15:08 01/31/21 15:15 Temperature Pulse Rate 84 80 77 Respiratory Rate 16 18 Blood Pressure 146/76 H Pulse Oximetry 96 01/31/21 16:00 01/31/21 18:00 01/31/21 20:00 Temperature 37.1 C 36.3 C L Pulse Rate 78 80 78 Respiratory Rate 18 16 Blood Pressure 167/82 H 156/76 H Pulse Oximetry 96 98 01/31/21 20:32 01/31/21 20:45 01/31/21 20:55 Temperature Pulse Rate 78 78 78 Respiratory Rate 16 16 Blood Pressure Pulse Oximetry 01/31/21 22:00 02/01/21 00:00 02/01/21 01:47 Temperature 36.8 C Pulse Rate 78 76 75 Respiratory Rate 20 20 Blood Pressure 156/73 H Pulse Oximetry 99 02/01/21 01:51 02/01/21 01:54 02/01/21 04:00 Temperature 36.8 C Pulse Rate 75 76 74 Respiratory Rate 16 18 Blood Pressure 179/83 H Pulse Oximetry 100 02/01/21 06:00 02/01/21 08:00 02/01/21 08:05 Temperature 37.2 C Pulse Rate 76 79 Respiratory Rate 16 Blood Pressure 175/80 H Pulse Oximetry 97 95 02/01/21 08:26 02/01/21 08:27 02/01/21 08:52 Temperature Pulse Rate 78 78 Respiratory Rate 18 Blood Pressure Pulse Oximetry 92 02/01/21 10:00 Temperatu
--- NOTE | 2021-02-01 13:09 | PM.DS ---
DS: Admitting Diagnosis Admitting Diagnosis Shortness of breath DS: Discharge Diagnosis Discharge Diagnosis (1) Acute respiratory failure with hypoxia: Code(s): J96.01 - Acute respiratory failure with hypoxia Status: Acute Assessment and Plan: Patient presents feeling short of breath. More likely related to pneumonia than CHF. V/Q scan was low probability for PE. He was started on IV antibiotics and nebulizer treatments. Aspiration unlikely given the upper lobe predominance. He required 1-2 L/min of oxygen but able to be weaned to room air. (2) Pneumonia: Code(s): J18.9 - Pneumonia, unspecified organism Status: Acute Assessment and Plan: No fevers at home or here. White count normal. Minimal cough. Chest x-ray showed patchy bilateral airspace disease compatible with pneumonia. CT scan showed extensive patchy bilateral pulmonary infiltrates with upper lobe predominance right greater than left most likely due to bilateral pneumonia. Most likely pneumonia although patient with minimal symptoms despite the radiographic findings. Blood cultures are no growth to date. Urine for Legionella and pneumococcal antigens pending. Treated with Rocephin and azithromycin with improvement. Rapid COVID test was negative; COVID PCR also negative. (3) Elevated troponin: Code(s): R77.8 - Other specified abnormalities of plasma proteins Status: Acute Assessment and Plan: Troponin mildly elevated 0.049 but essentially flat. EKG shows old inferior LA but no acute ischemic changes but does have borderline ST T wave changes in the in the high lateral leads. Echocardiogram results pending. We continued Lipitor, Plavix, aspirin and beta-smita. [facility] consulted and appreciated their input. They felt patient could be discharged without further testing. (4) CKD (chronic kidney disease): Qualifiers: Chronic kidney disease stage: unspecified stage Qualified Code(s): N18.9 - Chronic kidney disease, unspecified Code(s): N18.9 - Chronic kidney disease, unspecified Status: Acute Assessment and Plan: Baseline creatinine back in September was 3.5. Patient currently with creatinine of 3.7 on admission. Patient states he is close to dialysis. Renal US normal. Nephrology consulted and appreciate their input. Discussed. Dictaphone Technician will follow up with him in the clinic (5) Hypertension: Code(s): I10 - Essential (primary) hypertension Status: Acute Assessment and Plan: Patient's blood pressure was monitored closely and has been mostly elevated with systolic blood pressure 140-170 since admission. We continued his home Norvasc, Coreg and Cozaar. Addendum: Patient was wlking with RN after discharge completed and he complained of feling lightheaded. His BP was 84/48. Patient see later and he now states he feels fine and and that he has been known to have low BP at times. He states 2 weeks ago, he was taken off his Norvasc and told to take Coreg 25mg BID. Norvasc was still on his medication list so he was getting Norvasc here (and dose actually increased). Patient states this issue is longstanding and he feels comfortable with discharge. BP now was 142/69 lying, 122/67 sitting and 108/54 standing. He was orthostatic but asymptomatic. He did receive Norvasc this morning. He was offered to remain in the hospital for further testing but he about guarantees me that this is chronic and no need to remain hospitalized. He promises to take it easy today and tonight. He was advised to be careful to prevent falls. Spoke with Dictaphone Technician again today and explained this change and that Norvasc to be stopped. He agreed. 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 Lexiscan in 2019 showed a moderate size fixed inferior LA, no ischemia, EF 53%. Recommended wearing Misael hose on in the morning and off at night (6) Type 2 diabe
[2021-02-01 13:20] LABS: Glucose Point of Care 83 mg/dl (65-105)
[2021-02-01] MEDS: INSULIN ASPART (*BKC) 100 UNITS/ML 6 UNITS SUB-Q (13:27)
[2021-02-03 20:03] LABS: Pneumococcal Antigen Urine Not Detected (Not Detected)
[2021-02-05 02:17] LABS: Legionella pneumophila Ag Ur Not Detected (Not Detected)
--- NOTE | 2021-02-05 13:17 | PC.NURSE ---
Urine legionella and pneumococcal are negative, BLood cx are negative. Echo report faxed to Dr. Rosario. Dr. Cochran aware of all above.
== END 2021-02-01 17:35 | disposition home or self-care (01) ==
LOC: ANHED 11:19 → ANHIMU 18:00
PROVIDERS: Internal Medicine Nephrology; Admitting Provider Family Medicine; Emergency Provider Emergency Medicine; PCP Internal Medicine; Visit Provider Internal Medicine
DX: J96.01 Acute respiratory failure with hypoxia (principal); R07.9 Chest pain, unspecified; Z20.822 Contact with and (suspected) exposure to COVID-19; I12.9 Hypertensive chronic kidney disease with stage 1 through stage 4 chronic kidney disease, or unspecified chronic kidney disease; E78.5 Hyperlipidemia, unspecified; E11.65 Type 2 diabetes mellitus with hyperglycemia; E11.22 Type 2 diabetes mellitus with diabetic chronic kidney disease; I25.10 Atherosclerotic heart disease of native coronary artery without angina pectoris; I25.2 Old myocardial infarction; J44.9 Chronic obstructive pulmonary disease, unspecified; N18.4 Chronic kidney disease, stage 4 (severe); R91.8 Other nonspecific abnormal finding of lung field; R77.8 Other specified abnormalities of plasma proteins; Z95.0 Presence of cardiac pacemaker; Z86.73 Personal history of transient ischemic attack (TIA), and cerebral infarction without residual deficits; Z79.4 Long term (current) use of insulin; Z95.5 Presence of coronary angioplasty implant and graft
CPT/HCPCS: 36415; 71045; 71250; 76775; 78580; 80053; 80069; 81001; 82550; 82570; 82948; 83880; 84156; 84300; 84484; 85025; 85027; 85380; 87040; 87426; 87449; 87899; 93005; 94640; 96365; 96366; 96372; 96375; 96376; 99291; A9270; A9540; C8929; C9803; G0378; J0456; J0696; J1644; J1815; J1940; Q9957; U0003; U0005

== ENCOUNTER 2021-02-25 13:14 | Outpatient (CLI) | payer MEDICARE, SELFPAY ==
--- NOTE | ~2021-02-25 | XR_ITS ---
XR chest 2V DATE: 02/25/2021 13:41 INDICATION: Pneumonia TECHNIQUE: PA and lateral views COMPARISON: 01/30/2021 CT chest 01/30/2021 portable AP chest 03/22/2019 2 view chest FINDINGS: There is chronic moderately prominent elevation the right leaf of the diaphragm. There is mild bibasilar atelectasis. Left-sided dual-lead pacemaker device with leads overlying right atrium and right ventricle. Heart size appears within normal range. Is aortic arch calcification. No pleural effusion or pulmonar y vascular congestion or pneumothorax is detected. IMPRESSION: Bibasilar atelectasis Reviewed, dictated and finalized at location A. IMPRESSION: Bibasilar atelectasis
== END 2021-02-25 13:15 | disposition home or self-care (01) ==
LOC: ANHIMG 13:16
PROVIDERS: PCP Internal Medicine; Visit Provider Nurse Practitioner
DX: J98.11 Atelectasis (principal)
CPT/HCPCS: 71046

== ENCOUNTER 2021-03-19 16:03 | Outpatient (CLI) | payer MEDICARE, SELFPAY ==
--- NOTE | ~2021-03-19 | XR_ITS ---
EXAMINATION: XR chest 2V EXAM DATE: 03/19/2021 16:33 INDICATION: R06.02 -Worsening shortness of breath, Low Ox, pneumonia X 2months Ago TECHNIQUE: Frontal and lateral projections of the chest obtained and reviewed. Comparison is made to prior examination from 02/25/2021. FINDINGS: Atelectasis unchanged. The lungs are otherwise clear. There are no pleural effusions. Th e cardiomediastinal silhouette is within normal limits. There is no pneumothorax suspected. The bon es and soft tissues are unremarkable. There is a dual lead pacemaker/AICD seen with leads projecting over the expected locations of the right atrial appendage and right ventricle. IMPRESSION: Persistent low lung volume, bibasilar atelectasis. Reviewed, dictated and finalized at location A.
[2021-03-19 16:51] LABS: Basophils Percent Auto 0.5 % (0.2-1.2); Hematocrit 26.4 % (42.0-52.0); Hemoglobin 8.6 g/dL (14.0-18.0); Immature Granulocyte Absolute 0.02 K/mm3 (0.00-0.031); Immature Granulocyte Percent A 0.3 % (0-0.5); Lymphocytes Absolute Auto 1.46 K/mm3 (0.9-3.2); Lymphocytes Percent Auto 22.2 % (18.3-44.2); Mean Corpuscular HGB Conc 32.6 g/dl (32-36); Mean Corpuscular Hemoglobin 31.4 pg (26-34); Mean Corpuscular Volume 96.4 fl (80-100); Mean Platelet Volume 10.4 fl (7.4-10.4); Monocytes Absolute Auto 0.6 K/mm3 (0.1-0.6); Monocytes Percent Auto 9.7 % (2.6-8.5); Neutrophils Absolute Auto 4.4 K/mm3 (1.3-6.7); Neutrophils Percent Auto 67.3 % (45.5-73.1); Platelet Count Result 205 k/mm3 (150-375); Red Blood Count 2.74 M/mm3 (4.6-6.20); Red Cell Distribution Width 14.6 % (11.5-14.5); White Blood Count 6.6 K/mm3 (4.5-10.0)
[2021-03-19 17:07] LABS: Alanine Aminotransferase 24 U/L (4-50); Albumin Level 3.8 g/dL (3.5-5.1); Alkaline Phosphatase 106 U/L (38-126); Anion Gap 6 mmol/L (8-16); Aspartate Amino Transferase 30 U/L (17-59); Bilirubin,Total 0.6 mg/dL (0.2-1.3); Blood Urea Nitrogen 50 mg/dL (9-20); Calcium 8.8 mg/dL (8.4-10.2); Carbon Dioxide 27 mmol/L (22-30); Chloride 110 mmol/L (98-107); Estimated Glomerular Filt Rate 16; Glucose 166 mg/dL (65-110); Potassium 4.6 mmol/L (3.4-5.0); Sodium 143 mmol/L (137-145)
[2021-03-19 17:14] LABS: NT Pro B Type Natriuretic Pept 3090 pg/mL (5-100)
== END 2021-03-19 16:04 | disposition home or self-care (01) ==
PROVIDERS: PCP Internal Medicine; Visit Provider Nurse Practitioner
DX: R06.02 Shortness of breath (principal); R91.8 Other nonspecific abnormal finding of lung field; J98.11 Atelectasis
CPT/HCPCS: 36415; 71046; 80053; 83880; 85025

== ENCOUNTER 2021-03-20 10:42 | Observation (INO) | payer MEDICARE, SELFPAY ==
[2021-03-20] VITALS (13 sets, daily range): BP systolic 137–185; BP diastolic 72–88; PULSE 75–88; RESP 14–24; TEMP 36.1–36.6; O2SAT 93–100; BMI 31.8
--- NOTE | ~2021-03-20 | XR_ITS ---
EXAMINATION: XR chest 1V portable DATE: 03/22/2021 13:02 INDICATION: Dyspnea. TECHNIQUE: A single frontal view of the chest was obtained. COMPARISON: Chest 2 views 03/20/2021, chest CT 01/30/2021 FINDINGS: The lung volumes are small. There are mild airspace opacities in the mid and lower lung zon es with a perihilar and basilar predominance. No pleural effusion or pneumothorax. The heart size is normal. There is a left chest wall pacer with leads in the right atrium and right ventricle. IMPRESSION: 1. Stable small lung volumes with mild airspace opacities in the perihilar regions and at the lung ba ses, consistent with atelectasis or less likely pneumonia. Reviewed, dictated and finalized at location A. IMPRESSION: 1. Stable small lung volumes with mild airspace opacities in the perihilar scott ons and at the lung bases, consistent with atelectasis or less likely pneumonia .
--- NOTE | ~2021-03-20 | US_ITS ---
EXAMINATION: US venous doppler [facility] DATE: 03/20/2021 13:59 INDICATION: Lower limb swelling. TECHNIQUE: Grayscale ultrasound images without and with compression and Doppler ultrasound images of the bilateral lower extremity veins were obtained. COMPARISON: None. FINDINGS: The visualized portions of right common femoral vein, profunda (deep) femoral vein, femoral vein, pop liteal vein, peroneal veins, posterior tibial veins, and greater saphenous vein outflow are patent. The visualized portions of left common femoral vein, profunda femoral vein, femoral vein, popliteal v ein, peroneal veins, posterior tibial veins, and greater saphenous vein outflow are patent. IMPRESSION: 1. No deep venous thrombosis. Reviewed, dictated and finalized at location A.
--- NOTE | ~2021-03-20 | XR_ITS ---
EXAMINATION: XR chest 2V DATE: 03/20/2021 12:00 INDICATION: Chest pain and shortness of breath. TECHNIQUE: PA and lateral views of the chest were obtained. COMPARISON: Chest radiograph dated 03/19/2021 FINDINGS: Small lung volumes. Persistent opacities at the bilateral lung bases with minimal blunting at the yuval ateral posterior sulci consistent with tiny bilateral pleural effusions. No pneumothorax. The cardiom ediastinal silhouette is normal. Dual lead pacemaker seen with leads projecting over the expected loc ations of the right atrium and right ventricle. Chronic mild anterior wedging at T12. IMPRESSION: 1. Persistent small lung volumes with bibasilar opacities which could represent atelectasis or less l ikely pneumonia. 2. Tiny bilateral pleural effusions. Reviewed, dictated and finalized at location B. IMPRESSION: 1. Persistent small lung volumes with bibasilar opacities which could represent atelectasis or less likely pneumonia. 2. Tiny bilateral pleural effusions.
--- NOTE | 2021-03-20 10:44 | ECG_ITS ---
Measurements Intervals [place] Rate: 79 P: 27 NE: 156 QRS: -30 QRSD: 97 T: 102 QT: 379 QTc: 436 Interpretive Statements SINUS RHYTHM DELAYED PRECORDIAL R/S TRANSITION LEFT VENTRICULAR HYPERTROPHY WITH ST-T CHANGE CONSIDER INFERIOR INFARCT, AGE INDETERMINATE BORDERLINE T WAVE ABNORMALITY- LATERAL LEADS BASELINE ARTIFACT- I, III, AVR, AVL, AVF ABNORMAL ECG Electronically Signed On 03-20-2021 10:53:00 CDT by William Mayfield D.O.
[2021-03-20 11:06] LABS: Basophils Percent Auto 0.3 % (0.2-1.2); Hematocrit 26.9 % (42.0-52.0); Hemoglobin 8.6 g/dL (14.0-18.0); Immature Granulocyte Absolute 0.02 K/mm3 (0.00-0.031); Immature Granulocyte Percent A 0.3 % (0-0.5); Lymphocytes Absolute Auto 1.29 K/mm3 (0.9-3.2); Lymphocytes Percent Auto 20.2 % (18.3-44.2); Mean Corpuscular Hemoglobin 31.4 pg (26-34); Mean Corpuscular Volume 98.2 fl (80-100); Mean Platelet Volume 10.3 fl (7.4-10.4); Monocytes Absolute Auto 0.7 K/mm3 (0.1-0.6); Monocytes Percent Auto 10.3 % (2.6-8.5); Neutrophils Absolute Auto 4.4 K/mm3 (1.3-6.7); Neutrophils Percent Auto 68.9 % (45.5-73.1); Platelet Count Result 200 k/mm3 (150-375); Red Blood Count 2.74 M/mm3 (4.6-6.20); Red Cell Distribution Width 14.9 % (11.5-14.5); White Blood Count 6.4 K/mm3 (4.5-10.0)
[2021-03-20 11:30] LABS: Partial Thromboplastin Time 29.1 SECONDS (22.3-36.8); Prothrombin Time 13.4 Seconds (11.1-14.7)
[2021-03-20 11:50] LABS: Anion Gap 8 mmol/L (8-16); Blood Urea Nitrogen 47 mg/dL (9-20); Calcium 8.4 mg/dL (8.4-10.2); Carbon Dioxide 26 mmol/L (22-30); Chloride 109 mmol/L (98-107); Estimated CRCL calculation 24 ml/min; Estimated Glomerular Filt Rate 18; Glucose 60 mg/dL (65-110); Potassium 4.4 mmol/L (3.4-5.0); Sodium 143 mmol/L (137-145)
[2021-03-20 11:56] LABS: NT Pro B Type Natriuretic Pept 2880 pg/mL (5-100); Troponin I 0.037 ng/mL (0.000-0.034)
[2021-03-20] MEDS: FUROSEMIDE INJ 40 MG/4 ML VIAL IV PUSH ×2 (13:15→20:19)
[2021-03-20] MEDS: NITROGLYCERIN OINTMENT 1 INCH DOSE TRANSDERM (13:19)
--- NOTE | 2021-03-20 13:36 | ED.SOB ---
HPI - SOB/Dyspnea General Chief Complaint: Shortness of Breath/Dyspnea Stated Complaint: CHF Time Seen by Provider: 03/20/21 12:24 Source: patient Mode of arrival: ambulatory Limitations: no limitations History of Present Illness HPI Narrative: This is a 65 year old male with history of DM, CHF, hypertension and chronic kidney disease who presents for evaluation of shortness of breath. Patient states he has been having worsening shortness of breath and bilateral leg swelling for 1 week. He has gained 12 pounds in 1 week. He also has orthopnea and he states he had to use his 's cpap last night to sleep. He also has constant midsternal chest pressure for 2 weeks. He has doubled his lasix for past 3 days . He was evaluated by his primary care provider yesterday for CHF and he was told to come to ER. Related Data Home Medications Medication Instructions Recorded Confirmed albuterol sulfate 90 mcg/actuation 1 puff INHALATION Q4H PRN 05/09/19 01/30/21 aerosol inhaler allopurinol 100 mg tablet 100 mg PO BID 05/09/19 01/30/21 aspirin 81 mg tablet,delayed 81 mg PO DAILY 05/09/19 01/30/21 release ezetimibe 10 mg tablet 10 mg PO DAILY 05/09/19 01/30/21 furosemide 40 mg tablet 20 mg PO QAM tablet 05/09/19 01/30/21 cholecalciferol (vitamin D3) 125 5,000 unit PO BID cap 02/07/20 01/30/21 mcg (5,000 unit) capsule clopidogrel 75 mg tablet 75 mg PO DAILY 10/08/20 01/30/21 tamsulosin 0.4 mg capsule 0.4 mg PO DAILY 10/08/20 01/30/21 prednisolone acetate 1 drp EACH EYE DAILY 01/30/21 01/30/21 carvedilol 25 mg tablet 12.5 mg PO Q12H tablet 02/11/21 Allergies Allergy/AdvReac Type Severity Reaction Status Date / Time enalapril Allergy Unknown COUGH Verified 03/19/21 14:00 Iodinated Contrast Media Allergy Unknown Hives Verified 03/19/21 14:00 Contrast Media Allergy Unknown RASH Uncoded 03/19/21 14:00 Review of Systems Review of Systems: All systems reviewed & are unremarkable except as noted in HPI and below PMFSH Past Medical History Medical History (Updated 03/20/21 @ 17:35 by Amber Turner MD) Benign prostatic hyperplasia Chronic anemia Chronic kidney disease, stage 4 (severe) Chronic obstructive pulmonary disease Coronary artery disease Catheterization and 2005 showed a chronically occluded RCA. In 2016 he had a drug-eluting stent to the proximal left anterior descending. Diabetes mellitus Diastolic congestive heart failure Echocardiogram on 01/31/2021 showed normal LV systolic function with moderately increased LV wall thickness and grade 1 diastolic dysfunction with an EF estimated 55%. Hyperlipidemia, unspecified Hypertension Non compliance with medical treatment Orthostasis Related to autonomic dysfunction from his diabetes. Type 2 diabetes mellitus Hemoglobin A1c was 8.4% on 01/08/2021. Surgical History Surgical History (Updated 03/20/21 @ 15:08 by Paulette Savage PA-C) History of ankle surgery Left History of eye surgery Laser eye surgery. Status post cardiac pacemaker procedure His 1st pacemaker was placed in his 30s for sinus pause, syncope and bradycardia and he had generator changes in 2002, 2006, and 2011. His RV lead has high thresholds and he was not pacing in also it was turned off. 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 Smoked briefly
[2021-03-20 14:25] LABS: Glucose Point of Care 92 mg/dl (65-105)
--- NOTE | 2021-03-20 16:45 | PM.IMHP ---
H&P: HPI History of Present Illness Date/Time: 03/20/21 16:45 Chief Complaint: Chest pain and shortness of breath. Narrative: This is a 65-year-old male with hypertension, hyperlipidemia, coronary artery disease, congestive heart failure, chronic kidney disease, COPD, and several other comorbidities who presented to the emergency department earlier today from home for evaluation of chest pain shortness of breath. The patient tells me he is been ?sick for 2 months? and in fact he was admitted to the hospitalist service in mid January 2021 with hypoxia and bacterial pneumonia. His troponin levels were also elevated at that time but remained flat and his echocardiogram showed normal LV systolic function with an estimated EF of 55%. Unfortunately his cough has continued and he is still feeling short of breath with everyday activities. Over the past 1 week his symptoms have gotten worse and he endorses 3 pillow orthopnea though he was so short of breath the last couple of nights that he was using his 's CPAP machine to provide him oxygen and he had to sleep in a recliner last night due to the shortness of breath. He also notes increasing lower extremity edema and reports a 15 lb weight gain in the last 1 week. Additionally he reports intermittent ?pushing? sensation in his mid chest though that can occur at any time and is not necessarily related with exertion. He denies associated fever, chills, sweats, palpitations, pleuritic pain, nausea, and vomiting. Review of Systems Review of Systems: Twelve systems were reviewed with pertinent positives and negatives as per HPI. He has had some mild sinus drainage but that is not unusual for him this time of year. No sick contacts. He completed the [employer] COVID vaccination series in August 2020. Reports occasional dysphagia but he denies concerns for aspiration. No abdominal or epigastric pain. No blood in the stools. Except as documented, all other systems were reviewed and are negative. [facility] Past Medical History Medical History (Updated 03/20/21 @ 22:11 by Paulette Savage PA-C) Benign prostatic hyperplasia Chronic anemia Chronic kidney disease, stage 4 (severe) Chronic obstructive pulmonary disease Coronary artery disease Catheterization and 2005 showed a chronically occluded RCA. In 2016 he had a drug-eluting stent to the proximal left anterior descending. Diabetes mellitus Diastolic congestive heart failure Echocardiogram on 01/31/2021 showed normal LV systolic function with moderately increased LV wall thickness and grade 1 diastolic dysfunction with an EF estimated 55%. Hyperlipidemia, unspecified Hypertension Orthostasis Related to autonomic dysfunction from his diabetes. Type 2 diabetes mellitus Hemoglobin A1c was 8.4% on 01/08/2021. Surgical History Surgical History (Updated 03/20/21 @ 15:08 by Paulette Savage PA-C) History of ankle surgery Left History of eye surgery Laser eye surgery. Status post cardiac pacemaker procedure His 1st pacemaker was placed in his 30s for sinus pause, syncope and bradycardia and he had generator changes in 2002, 2006, and 2011. His RV lead has high thresholds and he was not pacing in also it was turned off. 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 Smoked briefly as a teen. No alcohol or illicit substance
--- NOTE | 2021-03-20 17:28 | PC.NURSE ---
This patient, Freddie Valero, was admitted to IMU Room 200-01. Patient/family oriented to hospital policies and general routines including ID bracelet, bed and alarms, visiting hours, pain management, procedures, bathroom and other care routines, personal items, smoking policy, room service/diet, and visiting hours. Information on how to activate the Rapid Response Team has been discussed. Patient/Family are encouraged to report perceived risks to care and to ask questions if they do not understand what they are told or what they should do.
[2021-03-20 18:15] LABS: Glucose Point of Care 67 mg/dl (65-105)
[2021-03-20 18:51] LABS: Troponin I 0.031 ng/mL (0.000-0.034)
[2021-03-20 19:42] LABS: Glucose Point of Care 90 mg/dl (65-105)
[2021-03-20 20:51] LABS: Glucose Point of Care 142 mg/dl (65-105)
[2021-03-20] MEDS: carvediloL 12.5 MG TABLET PO (22:52)
[2021-03-21] VITALS (20 sets, daily range): BP systolic 153–178; BP diastolic 63–85; PULSE 78–94; RESP 16–22; TEMP 36.1–36.7; O2SAT 86–98
[2021-03-21 05:26] LABS: Glucose Point of Care 52 mg/dl (65-105)
[2021-03-21 05:26] LABS: Glucose Point of Care 84 mg/dl (65-105)
[2021-03-21 06:54] LABS: Hematocrit 26.1 % (42.0-52.0); Hemoglobin 8.2 g/dL (14.0-18.0); Mean Corpuscular HGB Conc 31.4 g/dl (32-36); Mean Corpuscular Hemoglobin 30.8 pg (26-34); Mean Corpuscular Volume 98.1 fl (80-100); Mean Platelet Volume 10.3 fl (7.4-10.4); Platelet Count Result 191 k/mm3 (150-375); Red Blood Count 2.66 M/mm3 (4.6-6.20); Red Cell Distribution Width 14.6 % (11.5-14.5); White Blood Count 6.9 K/mm3 (4.5-10.0)
[2021-03-21 07:07] LABS: Alanine Aminotransferase 20 U/L (4-50); Albumin Level 3.5 g/dL (3.5-5.1); Alkaline Phosphatase 77 U/L (38-126); Anion Gap 7 mmol/L (8-16); Aspartate Amino Transferase 29 U/L (17-59); Bilirubin,Total 0.8 mg/dL (0.2-1.3); Blood Urea Nitrogen 50 mg/dL (9-20); Calcium 8.1 mg/dL (8.4-10.2); Carbon Dioxide 27 mmol/L (22-30); Chloride 107 mmol/L (98-107); Estimated CRCL calculation 27 ml/min; Estimated Glomerular Filt Rate 17; Glucose 91 mg/dL (65-110); Magnesium 1.9 mg/dL (1.6-2.3); Potassium 4.3 mmol/L (3.4-5.0); Sodium 141 mmol/L (137-145)
[2021-03-21] MEDS: CHOLECALCIFEROL 1,000 UNITS TABLET 5000 UNITS PO ×2 (08:21→16:53)
[2021-03-21] MEDS: carvediloL 12.5 MG TABLET PO ×2 (08:22→20:04)
[2021-03-21] MEDS: EZETIMIBE 10 MG TABLET PO (08:22)
[2021-03-21] MEDS: prednisoLONE ACETATE 1% OPHTH 5 ML 1 DROP EACH EYE (08:22)
[2021-03-21] MEDS: FUROSEMIDE INJ 40 MG/4 ML VIAL IV PUSH ×2 (08:22→20:05)
[2021-03-21] MEDS: LOSARTAN POTASSIUM 50 MG TABLET PO (08:22)
[2021-03-21] MEDS: allopurinoL 100 MG TABLET PO ×2 (08:22→16:53)
[2021-03-21] MEDS: ASPIRIN 81 MG ENTERIC TABLET PO (08:22)
[2021-03-21] MEDS: ATORVASTATIN 40 MG TABLET 80 MG PO (08:22)
[2021-03-21] MEDS: CLOPIDOGREL BISULFATE 75 MG TABLET PO (08:22)
[2021-03-21] MEDS: TAMSULOSIN HCL 0.4 MG CAPSULE PO (08:23)
[2021-03-21 08:39] LABS: Glucose Point of Care 80 mg/dl (65-105)
--- NOTE | 2021-03-21 11:56 | HOMEO2EVAL ---
Evaluation was performed at [facility] Home Oxygen Evaluation RC: Home Oxygen (O2) Evaluation Start: 03/20/21 22:15 Freq: ONCE Status: Active Protocol: RPE Activity Type Activity Date Activity User E-Sign Co-Sign Detail Recorded Client Recorded Date Recorded By Document 03/21/21 11:10 DJO [id number] 03/21/21 11:45 DJO Document 03/21/21 11:15 DJO [email or web address] 03/21/21 11:45 DJO Document 03/21/21 11:16 [email or web address] [email or web address] 03/21/21 11:45 DJO Document 03/21/21 11:30 [email or web address] [email or web address] 03/21/21 11:45 DJO 03/21/21 03/21/21 03/21/21 11:10 11:15 11:16 Home O2 Evaluation Test Phase Resting Exercise Exercise Oxygen Delivery Room Air Room Air Nasal Cannula Oxygen Flow Rate (L/min) 1 Pulse Oximetry (90-100 %) 94 86 L 93 Pulse Rate (60-100 beats/min) 87 90 94 Ambulation Distance (feet) 400 Home Oxygen Evaluation Comments Pt requires 1L O2 with exertion/ activity Treatment Charges O2 Evaluation - Inpatient 03/21/21 11:30 Home O2 Evaluation Test Phase Resting Oxygen Delivery Room Air Oxygen Flow Rate (L/min) Pulse Oximetry (90-100 %) 94 Pulse Rate (60-100 beats/min) 90 Ambulation Distance (feet) Home Oxygen Evaluation Comments Treatment Charges
--- NOTE | 2021-03-21 12:01 | PCRCNOTE ---
WILL ARRANGE HOME O2 AT 1 L WITH EXERTION WITH [facility]. WILL BRING TANK TO ROOM PRIOR TO D/C.
[2021-03-21 12:34] LABS: Glucose Point of Care 101 mg/dl (65-105)
[2021-03-21 15:47] LABS: Glucose Point of Care 193 mg/dl (65-105)
--- NOTE | 2021-03-21 16:25 | P.PNIM_ITS ---
Progress Note: A&P Assessment and Plan (1) CHF exacerbation: Code(s): I50.9 - Heart failure, unspecified Status: Acute Assessment and Plan: * shortness of breath and chest discomfort at least for the past 1 week. * exacerbation of diastolic congestive heart failure with increasing lower extremity edema and weight gain. * venous Doppler ultrasounds were negative for DVT * diuresed with close monitoring of volume status, blood pressures, and renal function. * Telemetry * Trops negative/Flat * echo from 01/31/2021 shows normal systolic function at 55%, left ventricular wall thickness moderately, diastolic function is grade 1 dysfunction left atrial chamber mildly enlarged mild mitral valve regurg * Lasix 40 mg IV q.12 * strict I&Os (2) Chest pain: Code(s): R07.9 - Chest pain, unspecified Status: Acute Assessment and Plan: * reports is a constant heavy pressure that is normal * probably related to fluid overload * chest x-ray shows small lung volumes less likely pneumonia, tiny bilateral pleural effusions * see above (3) Shortness of breath: Code(s): R06.02 - Shortness of breath Status: Acute Assessment and Plan: * Desaturation noted with exertion * 1L needed with exertion * ApneaLink performed and shows probable sleep apnea * patient will need an outpatient sleep study (4) Elevated troponin: Code(s): R77.8 - Other specified abnormalities of plasma proteins Status: Acute Assessment and Plan: * initial troponin elevated at 0.037 followed by 0.030 followed by 0.031 * troponins flat at this time * EKG shows sinus rhythm * acute coronary syndrome seems less likely probably from fluid overload * diuresis (5) Chronic anemia: Code(s): D64.9 - Anemia, unspecified Status: Acute Assessment and Plan: * hemoglobin hematocrit stable at 8.2 and 26.1 * will get anemia labs in the morning (6) Coronary artery disease: Qualifiers: Coronary Disease-Associated Artery/Lesion type: [place] artery [place] vs. transplanted heart: [place] heart Associated angina: without angina Qualified Code(s): I25.10 - Atherosclerotic heart disease of [place] coronary artery without angina pectoris Code(s): I25.10 - Atherosclerotic heart disease of [place] coronary artery without angina pectoris Status: Acute Assessment and Plan: * Very extensive history * See Dr. Higgins appt Thursday * Continue aspirin and plavix (7) Chronic obstructive pulmonary disease: Code(s): J44.9 - Chronic obstructive pulmonary disease, unspecified Status: Acute Assessment and Plan: * No wheezes, increased sputum production noted * Currently not a problem (8) Hypertension: Code(s): I10 - Essential (primary) hypertension Status: Acute Assessment and Plan: * BP not very controlled at this time * Current BP 159/70 * continue home carvedilol 12.5 p.o. q.12, losartan 50 mg p.o. daily * trend blood pressure * adjust medications as needed (9) Type 2 diabetes mellitus: Code(s): E11.9 - Type 2 diabetes mellitus without complications Status: Acute Assessment and Plan: * Glucose 91 * Initiate sliding scale insulin, * Accu-Cheks, * hypoglycemic protocol. * adjust medications as needed Time Spent With Patient Time wi
--- NOTE | 2021-03-21 16:25 | PM.IMPN ---
Progress Note: A&P Assessment and Plan (1) CHF exacerbation: Code(s): I50.9 - Heart failure, unspecified Status: Acute Assessment and Plan: shortness of breath and chest discomfort at least for the past 1 week. exacerbation of diastolic congestive heart failure with increasing lower extremity edema and weight gain. venous Doppler ultrasounds were negative for DVT diuresed with close monitoring of volume status, blood pressures, and renal function. Telemetry Trops negative/Flat echo from 01/31/2021 shows normal systolic function at 55%, left ventricular wall thickness moderately, diastolic function is grade 1 dysfunction left atrial chamber mildly enlarged mild mitral valve regurg Lasix 40 mg IV q.12 strict I&Os (2) Chest pain: Code(s): R07.9 - Chest pain, unspecified Status: Acute Assessment and Plan: reports is a constant heavy pressure that is normal probably related to fluid overload chest x-ray shows small lung volumes less likely pneumonia, tiny bilateral pleural effusions see above (3) Shortness of breath: Code(s): R06.02 - Shortness of breath Status: Acute Assessment and Plan: Desaturation noted with exertion 1L needed with exertion ApneaLink performed and shows probable sleep apnea patient will need an outpatient sleep study (4) Elevated troponin: Code(s): R77.8 - Other specified abnormalities of plasma proteins Status: Acute Assessment and Plan: initial troponin elevated at 0.037 followed by 0.030 followed by 0.031 troponins flat at this time EKG shows sinus rhythm acute coronary syndrome seems less likely probably from fluid overload diuresis (5) Chronic anemia: Code(s): D64.9 - Anemia, unspecified Status: Acute Assessment and Plan: hemoglobin hematocrit stable at 8.2 and 26.1 will get anemia labs in the morning (6) Coronary artery disease: Qualifiers: Coronary Disease-Associated Artery/Lesion type: [place] artery [place] vs. transplanted heart: [place] heart Associated angina: without angina Qualified Code(s): I25.10 - Atherosclerotic heart disease of [place] coronary artery without angina pectoris Code(s): I25.10 - Atherosclerotic heart disease of [place] coronary artery without angina pectoris Status: Acute Assessment and Plan: Very extensive history See Dr. Ronaldo lemon Thursday Continue aspirin and plavix (7) Chronic obstructive pulmonary disease: Code(s): J44.9 - Chronic obstructive pulmonary disease, unspecified Status: Acute Assessment and Plan: No wheezes, increased sputum production noted Currently not a problem (8) Hypertension: Code(s): I10 - Essential (primary) hypertension Status: Acute Assessment and Plan: BP not very controlled at this time Current BP 159/70 continue home carvedilol 12.5 p.o. q.12, losartan 50 mg p.o. daily trend blood pressure adjust medications as needed (9) Type 2 diabetes mellitus: Code(s): E11.9 - Type 2 diabetes mellitus without complications Status: Acute Assessment and Plan: Glucose 91 Initiate sliding scale insulin, Accu-Cheks, hypoglycemic protocol. adjust medications as needed Time Spent With Patient Time with patient: Greater than 35 minutes Subjective Date/time seen: 03/21/21 15:35 Interval history: Date of Service 03/20/21 1645 from H&P This is a 65-year-old male with hypertension, hyperlipidemia, coronary artery disease, congestive heart failure, chronic kidney disease, COPD, and several other comorbidities who presented to the emergency department earlier today from home for evaluation of chest pain shortness of breath. The patient tells me he is been ?sick for 2 months? and in fact he was admitted to the hospitalist service in mid January 2021 with hy
--- NOTE | 2021-03-21 18:40 | PC.NURSE ---
This patient, Freddie Valero, was transferred to [facility] on 03/21/21 at 1840. Personal belongings sent with patient. Report given to BALJINDER Smiley. Appropriate documentation sent with patient.
--- NOTE | 2021-03-21 18:44 | PC.NURSE ---
This patient, Freddie Valero, was received from imu on 03/21/21 at 1844. Patient/family oriented to unit policies and routines
[2021-03-21 20:30] LABS: Glucose Point of Care 177 mg/dl (65-105)
[2021-03-22] VITALS (8 sets, daily range): BP systolic 133–151; BP diastolic 59–70; PULSE 75–82; RESP 18–20; TEMP 36.2–36.4; O2SAT 93–96
[2021-03-22 05:40] LABS: Basophils Percent Auto 0.5 % (0.2-1.2); Hematocrit 25.5 % (42.0-52.0); Hemoglobin 8.4 g/dL (14.0-18.0); Immature Granulocyte Absolute 0.02 K/mm3 (0.00-0.031); Immature Granulocyte Percent A 0.3 % (0-0.5); Lymphocytes Absolute Auto 1.49 K/mm3 (0.9-3.2); Lymphocytes Percent Auto 24.8 % (18.3-44.2); Mean Corpuscular HGB Conc 32.9 g/dl (32-36); Mean Corpuscular Volume 94.1 fl (80-100); Mean Platelet Volume 10.5 fl (7.4-10.4); Monocytes Absolute Auto 0.7 K/mm3 (0.1-0.6); Monocytes Percent Auto 11.6 % (2.6-8.5); Neutrophils Absolute Auto 3.8 K/mm3 (1.3-6.7); Neutrophils Percent Auto 62.8 % (45.5-73.1); Platelet Count Result 205 k/mm3 (150-375); Red Blood Count 2.71 M/mm3 (4.6-6.20); Red Cell Distribution Width 14.1 % (11.5-14.5)
[2021-03-22 05:50] LABS: Alanine Aminotransferase 21 U/L (4-50); Albumin Level 3.4 g/dL (3.5-5.1); Alkaline Phosphatase 73 U/L (38-126); Anion Gap 9 mmol/L (8-16); Aspartate Amino Transferase 29 U/L (17-59); Bilirubin,Total 0.8 mg/dL (0.2-1.3); Blood Urea Nitrogen 47 mg/dL (9-20); Calcium 8.2 mg/dL (8.4-10.2); Carbon Dioxide 25 mmol/L (22-30); Chloride 105 mmol/L (98-107); Estimated CRCL calculation 22 ml/min; Estimated Glomerular Filt Rate 16; Glucose 110 mg/dL (65-110); Magnesium 1.9 mg/dL (1.6-2.3); Potassium 4.2 mmol/L (3.4-5.0); Sodium 139 mmol/L (137-145)
[2021-03-22 06:51] LABS: Glucose Point of Care 107 mg/dl (65-105)
[2021-03-22] MEDS: CHOLECALCIFEROL 1,000 UNITS TABLET 5000 UNITS PO (08:13)
[2021-03-22] MEDS: EZETIMIBE 10 MG TABLET PO (08:14)
[2021-03-22] MEDS: TAMSULOSIN HCL 0.4 MG CAPSULE PO (08:14)
[2021-03-22] MEDS: ATORVASTATIN 40 MG TABLET 80 MG PO (08:14)
[2021-03-22] MEDS: CLOPIDOGREL BISULFATE 75 MG TABLET PO (08:14)
[2021-03-22] MEDS: allopurinoL 100 MG TABLET PO (08:14)
[2021-03-22] MEDS: ASPIRIN 81 MG ENTERIC TABLET PO (08:14)
[2021-03-22] MEDS: prednisoLONE ACETATE 1% OPHTH 5 ML 1 DROP EACH EYE (08:14)
[2021-03-22] MEDS: FUROSEMIDE INJ 40 MG/4 ML VIAL IV PUSH (08:14)
[2021-03-22] MEDS: carvediloL 12.5 MG TABLET PO (08:15)
[2021-03-22] MEDS: LOSARTAN POTASSIUM 50 MG TABLET PO (08:18)
[2021-03-22 11:46] LABS: Glucose Point of Care 98 mg/dl (65-105)
--- NOTE | 2021-03-22 12:11 | P.DS_ITS ---
DS: Admitting Diagnosis Discharge Date 03/22/2021 at 11:00 am Admitting Diagnosis Acute diastolic congestive heart failure DS: Discharge Diagnosis Discharge Diagnosis (1) CHF exacerbation: Code(s): I50.9 - Heart failure, unspecified Status: Acute Assessment and Plan: * shortness of breath and chest discomfort at least for the past 1 week. * exacerbation of diastolic congestive heart failure with increasing lower extremity edema and weight gain. * venous Doppler ultrasounds were negative for DVT * diuresed with close monitoring of volume status, blood pressures, and renal function. * Telemetry * Trops negative/Flat * echo from 01/31/2021 shows normal systolic function at 55%, left ventricular wall thickness moderately, diastolic function is grade 1 dysfunction left atrial chamber mildly enlarged mild mitral valve regurg * Lasix 40 mg IV q.12 * strict I&Os (2) Chest pain: Code(s): R07.9 - Chest pain, unspecified Status: Acute Assessment and Plan: * reports is a constant heavy pressure that is normal * probably related to fluid overload * chest x-ray shows small lung volumes less likely pneumonia, tiny bilateral pleural effusions * see above (3) Shortness of breath: Code(s): R06.02 - Shortness of breath Status: Acute Assessment and Plan: * Desaturation noted with exertion * 1L needed with exertion * ApneaLink performed and shows probable sleep apnea * patient will need an outpatient sleep study (4) Elevated troponin: Code(s): R77.8 - Other specified abnormalities of plasma proteins Status: Acute Assessment and Plan: * initial troponin elevated at 0.037 followed by 0.030 followed by 0.031 * troponins flat at this time * EKG shows sinus rhythm * acute coronary syndrome seems less likely probably from fluid overload * diuresis (5) Chronic anemia: Code(s): D64.9 - Anemia, unspecified Status: Acute Assessment and Plan: * hemoglobin hematocrit stable at 8.2 and 26.1 * will get anemia labs in the morning (6) Coronary artery disease: Qualifiers: Coronary Disease-Associated Artery/Lesion type: [place] artery [place] vs. transplanted heart: [place] heart Associated angina: without angina Qualified Code(s): I25.10 - Atherosclerotic heart disease of [place] coronary artery without angina pectoris Code(s): I25.10 - Atherosclerotic heart disease of [place] coronary artery without angina pectoris Status: Acute Assessment and Plan: * Very extensive history * See Dr. Higgins appt Thursday * Continue aspirin and plavix (7) Chronic obstructive pulmonary disease: Code(s): J44.9 - Chronic obstructive pulmonary disease, unspecified Status: Acute Assessment and Plan: * No wheezes, increased sputum production noted * Currently not a problem (8) Hypertension: Code(s): I10 - Essential (primary) hypertension Status: Acute Assessment and Plan: * BP not very controlled at this time * Current BP 159/70 * continue home carvedilol 12.5 p.o. q.12, losartan 50 mg p.o. daily * trend blood pressure * adjust medications as needed (9) Type 2 diabetes mellitus: Code(s): E11.9 - Type 2 diabetes mellitus without complications Status: Acute Assessment and Plan: * Glucose 91 * Initiate sliding sc
--- NOTE | 2021-03-22 12:11 | PM.DS ---
DS: Admitting Diagnosis Discharge Date 03/22/2021 at 11:00 am Admitting Diagnosis Acute diastolic congestive heart failure DS: Discharge Diagnosis Discharge Diagnosis (1) CHF exacerbation: Code(s): I50.9 - Heart failure, unspecified Status: Acute Assessment and Plan: shortness of breath and chest discomfort at least for the past 1 week. exacerbation of diastolic congestive heart failure with increasing lower extremity edema and weight gain. venous Doppler ultrasounds were negative for DVT diuresed with close monitoring of volume status, blood pressures, and renal function. Telemetry Trops negative/Flat echo from 01/31/2021 shows normal systolic function at 55%, left ventricular wall thickness moderately, diastolic function is grade 1 dysfunction left atrial chamber mildly enlarged mild mitral valve regurg Lasix 40 mg IV q.12 strict I&Os (2) Chest pain: Code(s): R07.9 - Chest pain, unspecified Status: Acute Assessment and Plan: reports is a constant heavy pressure that is normal probably related to fluid overload chest x-ray shows small lung volumes less likely pneumonia, tiny bilateral pleural effusions see above (3) Shortness of breath: Code(s): R06.02 - Shortness of breath Status: Acute Assessment and Plan: Desaturation noted with exertion 1L needed with exertion ApneaLink performed and shows probable sleep apnea patient will need an outpatient sleep study (4) Elevated troponin: Code(s): R77.8 - Other specified abnormalities of plasma proteins Status: Acute Assessment and Plan: initial troponin elevated at 0.037 followed by 0.030 followed by 0.031 troponins flat at this time EKG shows sinus rhythm acute coronary syndrome seems less likely probably from fluid overload diuresis (5) Chronic anemia: Code(s): D64.9 - Anemia, unspecified Status: Acute Assessment and Plan: hemoglobin hematocrit stable at 8.2 and 26.1 will get anemia labs in the morning (6) Coronary artery disease: Qualifiers: Coronary Disease-Associated Artery/Lesion type: [place] artery [place] vs. transplanted heart: [place] heart Associated angina: without angina Qualified Code(s): I25.10 - Atherosclerotic heart disease of [place] coronary artery without angina pectoris Code(s): I25.10 - Atherosclerotic heart disease of [place] coronary artery without angina pectoris Status: Acute Assessment and Plan: Very extensive history See Dr. Ronaldo kraftt Thursday Continue aspirin and plavix (7) Chronic obstructive pulmonary disease: Code(s): J44.9 - Chronic obstructive pulmonary disease, unspecified Status: Acute Assessment and Plan: No wheezes, increased sputum production noted Currently not a problem (8) Hypertension: Code(s): I10 - Essential (primary) hypertension Status: Acute Assessment and Plan: BP not very controlled at this time Current BP 159/70 continue home carvedilol 12.5 p.o. q.12, losartan 50 mg p.o. daily trend blood pressure adjust medications as needed (9) Type 2 diabetes mellitus: Code(s): E11.9 - Type 2 diabetes mellitus without complications Status: Acute Assessment and Plan: Glucose 91 Initiate sliding scale insulin, Accu-Cheks, hypoglycemic protocol. adjust medications as needed DS: Summary Hospital Course Hospital Course: Patient is a 65-year-old male with past medical history of hypertension, gout, hyperlipidemia, and CAD who presented to the ED with shortness of breath and chest discomfort. Since the patient was admitted patient was noted to have an exacerbation of congestive heart failure. Echo from 01/31/2021 showed grade 1 diastolic dysfunction the EF of 55%. Patient was diuresed with IV Lasix 40 mg q.12. Patient will fo
--- NOTE | 2021-03-22 13:23 | PCRCNOTE ---
HOME O2 EVAL REPEATED. PT SAO2 DROPPED TO 86% ON ROOM AIR WITH ACTIVITY. PT STILL REQUIRES 1LPM O2 WITH ACTIVITY.
== END 2021-03-22 15:30 | disposition home or self-care (01) ==
LOC: ANHED 12:24 → ANHIMU 15:11 → ANH2MED 03-21 18:54
PROVIDERS: Nurse Practitioner; Physician Assistant; Admitting Provider Internal Medicine; Emergency Provider General Practice; PCP Internal Medicine; Visit Provider Internal Medicine
DX: I13.0 Hypertensive heart and chronic kidney disease with heart failure and stage 1 through stage 4 chronic kidney disease, or unspecified chronic kidney disease (principal); I50.31 Acute diastolic (congestive) heart failure; R07.9 Chest pain, unspecified; R06.02 Shortness of breath; R77.8 Other specified abnormalities of plasma proteins; D63.1 Anemia in chronic kidney disease; E11.22 Type 2 diabetes mellitus with diabetic chronic kidney disease; E78.5 Hyperlipidemia, unspecified; I25.10 Atherosclerotic heart disease of native coronary artery without angina pectoris; J44.9 Chronic obstructive pulmonary disease, unspecified; N18.4 Chronic kidney disease, stage 4 (severe); R60.0 Localized edema; Z23 Encounter for immunization; Z79.4 Long term (current) use of insulin
CPT/HCPCS: 36415; 71045; 71046; 80048; 80053; 82948; 83735; 83880; 84443; 84484; 85025; 85027; 85610; 85730; 90471; 90653; 93005; 93970; 94618; 94762; 96374; 96376; 99285; A9270; G0008; G0378; J1940

== ENCOUNTER → 2021-04-23 08:26 | Outpatient (REF) | payer MEDICARE, SELFPAY | LOC: ANHLAB 08:26 | PROVIDERS: PCP Internal Medicine; Visit Provider Nurse Practitioner | DX: D49.2 Neoplasm of unspecified behavior of bone, soft tissue, and skin (principal) | CPT/HCPCS: 88305 ==

== ENCOUNTER 2021-08-15 13:35 | Emergency (ER) | payer MEDICARE, SELFPAY ==
--- NOTE | ~2021-08-15 | XR_ITS ---
XR chest 2V DATE: 08/15/2021 14:21 INDICATION: Shortness of breath, productive cough. Nonsmoker. TECHNIQUE: 2 views COMPARISON: 03/22/2021 portable AP chest FINDINGS: There is mild left basilar atelectasis. The lungs otherwise appear clear. Heart size is within normal range. There is a left-sided transvenous pacemaker device with leads over lying right atrium and right ventricle. Aortic arch calcification. Suggestion of a coronary artery st ent. Chronic mild to moderate elevation of the right leaf of the diaphragm, unchanged since 03/22/2021. No pleural effusion or pulmonary vascular congestion or pneumothorax is evident. IMPRESSION: Left basilar atelectasis Left-sided dual-lead transvenous pacemaker device Reviewed, dictated and finalized at location A. ZER OPERATOR
[2021-08-15 13:44] VITALS: BP 151/78; PULSE 93; RESP 16; TEMP 38.9; O2SAT 96
--- NOTE | 2021-08-15 13:46 | ED.GENADULT ---
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 Patient reports that he weighs himself several times weakly and he has not had an increase in his weight but does have some edema to his feet. Patient states that his pulse oximetry at home has been running in the high 80- mid 90's and has been using his inhalers as prescribed.Patient reports that he has had COVID and Flu immunizations. Patient is febrile. Related Data Home Medications Medication Instructions Recorded Confirmed albuterol sulfate 90 mcg/actuation 1 puff INHALATION Q4H PRN 05/09/19 08/15/21 aerosol inhaler allopurinol 100 mg tablet 100 mg PO BID 05/09/19 08/15/21 aspirin 81 mg tablet,delayed 81 mg PO DAILY 05/09/19 08/15/21 release ezetimibe 10 mg tablet 10 mg PO DAILY 05/09/19 08/15/21 cholecalciferol (vitamin D3) 125 5,000 unit PO BID cap 02/07/20 08/15/21 mcg (5,000 unit) capsule clopidogrel 75 mg tablet 75 mg PO DAILY 10/08/20 08/15/21 carvedilol 25 mg tablet 12.5 mg PO Q12H tablet 02/11/21 08/15/21 isguakssgf-szwxbfez-ggupbnvpzh 2 inh INHALATION BID 08/15/21 08/15/21 [Breztri Aerosphere] calcium acetate(phosphat bind) 667 mg PO DAILY 08/15/21 08/15/21 tamsulosin 0.4 mg PO DAILY 08/15/21 08/15/21 Allergies Allergy/AdvReac Type Severity Reaction Status Date / Time enalapril Allergy Unknown COUGH Verified 08/15/21 14:21 Iodinated Contrast Media Allergy Unknown Hives Verified 08/15/21 14:21 Contrast Media Allergy Unknown RASH Uncoded 08/06/21 10:29 Review of Systems Review of Systems: CONSTITUTIONAL: Positive for fevers, reports no chills, or sweats. EYES: Denies visual changes, redness, or discharge. ENT: Positive rhinorrhea, congestion,no sore throat, or otalgia, voice is hoarse CARDIOVASCULAR: Denies chest pain, palpitations, or edema. RESPIRATORY: Positive for cough or dyspnea. GASTROINTESTINAL: Denies abdominal pain, nausea, vomiting, or diarrhea. GENITOURINARY: Denies dysuria or hematuria. SKIN: Denies rash or itching. MUSCULOSKELETAL: Denies back pain, joint pain, or myalgia. NEUROLOGIC: Denies headache, numbness, or weakness. PSYCHIATRIC: Denies anxiety or depression. All systems reviewed & are unremarkable except as noted in HPI and below PMFSH Past Medical History Medical History Benign prostatic hyperplasia Chronic anemia Chronic kidney disease, stage 4 (severe) Chronic obstructive pulmonary disease Coronary artery disease Catheterization and 2005 showed a chronically occluded RCA. In 2016 he had a drug-eluting stent to the proximal left anterior descending. Diabetes mellitus Diastolic congestive heart failure Echocardiogram on 01/31/2021 showed normal LV systolic function with moderately increased LV wall thickness and grade 1 diastolic dysfunction with an EF estimated 55%. Hyperlipidemia, unspecified Hypertension Orthostasis Related to autonomic dysfunction from his diabetes. Type 2 diabetes mellitus Hemoglobin A1c was 8.4% on 01/08/2021. Surgical History Surgical History History of ankle surgery Left History of eye surgery Laser eye surgery. Status post cardiac pacemaker procedure His 1st pacemaker was placed in his 30s for sinus pause, syncope and bradycardia and he had gen
[2021-08-15 14:52] LABS: Glucose Point of Care 173 mg/dl (65-105)
== END 2021-08-15 15:20 | disposition home or self-care (01) ==
PROVIDERS: Emergency Provider Registered Nurse; PCP Internal Medicine
DX: J44.9 Chronic obstructive pulmonary disease, unspecified (principal); Z20.822 Contact with and (suspected) exposure to COVID-19; I13.0 Hypertensive heart and chronic kidney disease with heart failure and stage 1 through stage 4 chronic kidney disease, or unspecified chronic kidney disease; E11.22 Type 2 diabetes mellitus with diabetic chronic kidney disease; N18.4 Chronic kidney disease, stage 4 (severe); I50.30 Unspecified diastolic (congestive) heart failure; I25.10 Atherosclerotic heart disease of native coronary artery without angina pectoris; E78.5 Hyperlipidemia, unspecified; N40.0 Benign prostatic hyperplasia without lower urinary tract symptoms; Z79.82 Long term (current) use of aspirin
CPT/HCPCS: 71046; 82948; 87081; 87426; 87804; 87880; 99213; C9803; G0463

== ENCOUNTER 2021-08-29 15:27 | Inpatient (IN) | payer MEDICARE, SELFPAY ==
[2021-08-29] VITALS (10 sets, daily range): BP systolic 145–217; BP diastolic 78–115; PULSE 75–94; RESP 18–24; TEMP 36.3–36.4; O2SAT 94–100; BMI 30.9
--- NOTE | ~2021-08-29 | XR_ITS ---
EXAMINATION: XR chest 2V DATE: 08/29/2021 16:17 INDICATION: Chronic cough. Shortness of breath. Weakness. TECHNIQUE: Frontal and lateral views of the chest were obtained. COMPARISON: Chest 2 views 08/15/2021, chest CT 01/30/2021 FINDINGS: The lung volumes are small. There are airspace opacities in the mid and lower lung zones. N o pleural effusion or pneumothorax. The heart size is normal. There is a left chest wall pacer with l enrique in the right atrium and right ventricle. IMPRESSION: 1. Small lung volumes with airspace opacities in the mid and lower lung zones, consistent with atelec tasis versus pneumonia. Reviewed, dictated and finalized at location A. IMPRESSION: 1. Small lung volumes with airspace opacities in the mid and lower lung zones, consistent with atelectasis versus pneumonia.
--- NOTE | ~2021-08-29 | XR_ITS ---
EXAMINATION: XR chest 1V portable DATE: 09/03/2021 12:36 INDICATION: Shortness of breath TECHNIQUE: frontal view of the chest was obtained. COMPARISON: Chest radiograph dated 08/29/2021 FINDINGS: Persistent small lung volumes. No significant change in opacities in the bilateral mid and lower lung zones. No pneumothorax. Blunting at the costophrenic angles suggesting small bilateral pleural effus ions. Cardiomediastinal silhouette is unchanged with normal heart size. Coronary artery stenting. Bradford l lead pacemaker seen with leads projecting over the expected locations of the right atrium and right ventricle. IMPRESSION: 1. Persistent small lung volumes with opacities in the mid and lower lung zones which could represent atelectasis and/or pneumonia. 2. Small bilateral pleural effusions. Reviewed, dictated and finalized at location A.
--- NOTE | ~2021-08-29 | CT_ITS ---
EXAMINATION: CT brain wo con DATE: 08/29/2021 16:08 INDICATION: Fall due to dizziness and ataxia TECHNIQUE: Computed tomography (CT) of the head was performed without intravenous contrast. The mA wa s adjusted according to patient size. Iterative reconstruction technique was employed. Exam dose: 68 1.00 mGy-cm total exam DLP. COMPARISON: CT brain FINDINGS: There are bilateral very prominent vertebral artery calcifications and carotid siphon and s upraclinoid internal carotid artery calcifications. There is nonspecific diminished attenuation of the cerebral white matter, likely due to chronic small vessel ischemic changes. There is greater than expected cerebral and cerebellar volume loss for patient age. No intracranial mass lesion or hemorrhage, midline shift or mass effect effect. No subdural or epidur al hematoma. There is a prominent fluid level in the right sphenoid sinus. There is prominent patchy opacification of ethmoid air cells bilaterally. The mastoid air cells are normally developed and aerated. No fracture or bone destruction of the cranial vault. IMPRESSION: Very prominent cerebral atherosclerotic calcifications involving the vertebral arteries and bilateral carotid siphon and supraclinoid internal carotid arteries Probable chronic ischemic changes of cerebral white matter Greater than expected cerebral and cerebellar atrophy for age No acute intracranial finding Dominant fluid level, right sphenoid sinus, not present on 09/22/2016 Prominent patchy opacification of bilateral ethmoid air cells, also new Reviewed, dictated and finalized at Location A. Reviewed, dictated and finalized at location A. IMPRESSION: Very prominent cerebral atherosclerotic calcifications involving t he vertebral arteries and bilateral carotid siphon and supraclinoid internal ca rotid arteries Probable chronic ischemic changes of cerebral white matter Greater than expected cerebral and cerebellar atrophy for age No acute intracranial finding Dominant fluid level, right sphenoid sinus, not present on 09/22/2016 Prominent patchy opacification of bilateral ethmoid air cells, also new
--- NOTE | 2021-08-29 15:49 | ECG_ITS ---
Measurements Intervals [place] Rate: 86 P: 29 FL: 153 QRS: -20 QRSD: 107 T: 113 QT: 384 QTc: 460 Interpretive Statements SINUS RHYTHM NONSPECIFIC T-WAVE ABNORMALITY COMPARED TO ECG 03/20/2021 10:49:55 T-WAVE ABNORMALITY NOW PRESENT Electronically Signed On 08-29-2021 18:48:37 CDT by Marlen Higgins M.D.
--- NOTE | 2021-08-29 15:50 | ED.GENADULT ---
HPI - General Adult General Chief complaint: Unspecified Stated complaint: Multiple complaints Time Seen by Provider: 08/29/21 15:50 Source: patient and RN notes reviewed Mode of arrival: ambulatory Limitations: no limitations History of Present Illness HPI narrative: Patient is 65 years old white male presented to the ED with feeling weak, coughing, clears sputum, shortness of breath over the last 2 to 3 weeks. Was seen at urgent care, started on steroid and antibiotic without any improvement. Then was seen by his family physician and had a prescription of nebulizer machine which she could not get. Today was told to go to the emergency room for further evaluation. History of CHF, diabetes, COPD, CKD, elevated troponin and pneumonia. Patient had 2 Covid vaccine 1 year ago, did not take the booster dose. Patient does not smoke, does not use oxygen at home. Patient denies any chest pain, back pain, headache, nausea, vomiting, fever, chills. Patient main complaint at this minute is stress does not know what this can happen. Patient drove himself to the emergency room, lives at home with his who has dementia Related Data Home Medications Medication Instructions Recorded Confirmed albuterol sulfate 90 mcg/actuation 1 puff INHALATION Q4H PRN 05/09/19 08/28/21 aerosol inhaler allopurinol 100 mg tablet 100 mg PO BID 05/09/19 08/28/21 aspirin 81 mg tablet,delayed 81 mg PO DAILY 05/09/19 08/28/21 release ezetimibe 10 mg tablet 10 mg PO DAILY 05/09/19 08/28/21 cholecalciferol (vitamin D3) 125 5,000 unit PO BID cap 02/07/20 08/28/21 mcg (5,000 unit) capsule carvedilol 25 mg tablet 12.5 mg PO Q12H tablet 02/11/21 08/28/21 nvinhyhjtd-tgqmdlwi-mcrbccpmxy 2 inh INHALATION BID 08/15/21 08/28/21 [Breztri Aerosphere] calcium acetate(phosphat bind) 667 mg PO DAILY 08/15/21 08/28/21 tamsulosin 0.4 mg PO DAILY 08/15/21 08/28/21 multivitamin 1 tablet PO DAILY 08/21/21 08/28/21 ubidecarenone-omega 3-vit E 25 1 cap PO DAILY 08/21/21 08/28/21 mg-150 (90-60) mg-200 unit capsule Allergies Allergy/AdvReac Type Severity Reaction Status Date / Time enalapril Allergy Unknown COUGH Verified 08/29/21 17:31 Iodinated Contrast Media Allergy Unknown Hives Verified 08/29/21 17:31 Contrast Media Allergy Unknown RASH Uncoded 08/06/21 10:29 [facility] Past Medical History Medical History Benign prostatic hyperplasia Chronic anemia Chronic kidney disease, stage 4 (severe) Chronic obstructive pulmonary disease Coronary artery disease Catheterization and 2005 showed a chronically occluded RCA. In 2016 he had a drug-eluting stent to the proximal left anterior descending. Diabetes mellitus Diastolic congestive heart failure Echocardiogram on 01/31/2021 showed normal LV systolic function with moderately increased LV wall thickness and grade 1 diastolic dysfunction with an EF estimated 55%. Hyperlipidemia, unspecified Hypertension Orthostasis Related to autonomic dysfunction from his diabetes. Type 2 diabetes mellitus Hemoglobin A1c was 8.4% on 01/08/2021. Surgical History Surgical History History of ankle surgery Left History of eye surgery Laser eye surgery. Status post cardiac pacemaker procedure His 1st pacemaker was placed in his 30s for sinus pause, syncope and bradycardia and he had generator changes in 2002, 2006, and 2011. His RV lead has high thresholds and he was not pacing in also it was turned off. Status post insertion of drug-eluting stent into left anterior descending (LAD) artery for coronary artery disease Family History Family History Father Family history of premature coronary heart disease, Onset Age: 53 Cerebrovascular accident Patient's father is Diabetes mellitus Hypertension Family history of cardiovascular disease Sibling Carcinoma of colon, Onset
[2021-08-29 16:11] LABS: Basophils Percent Auto 0.1 % (0.2-1.2); Hematocrit 25.7 % (42.0-52.0); Hemoglobin 8.4 g/dL (14.0-18.0); Immature Granulocyte Absolute 0.06 K/mm3 (0.00-0.031); Immature Granulocyte Percent A 0.7 % (0-0.5); Lymphocytes Absolute Auto 1.56 K/mm3 (0.9-3.2); Lymphocytes Percent Auto 19.1 % (18.3-44.2); Mean Corpuscular HGB Conc 32.7 g/dl (32-36); Mean Corpuscular Hemoglobin 31.6 pg (26-34); Mean Corpuscular Volume 96.6 fl (80-100); Mean Platelet Volume 11.3 fl (7.4-10.4); Monocytes Absolute Auto 0.6 K/mm3 (0.1-0.6); Monocytes Percent Auto 7.5 % (2.6-8.5); Neutrophils Absolute Auto 5.9 K/mm3 (1.3-6.7); Neutrophils Percent Auto 72.6 % (45.5-73.1); Platelet Count Result 225 k/mm3 (150-375); Red Blood Count 2.66 M/mm3 (4.6-6.20); White Blood Count 8.2 K/mm3 (4.5-10.0)
[2021-08-29 16:30] LABS: Alanine Aminotransferase 49 U/L (4-50); Albumin Level 3.2 g/dL (3.5-5.1); Alkaline Phosphatase 194 U/L (38-126); Anion Gap 9 mmol/L (8-16); Aspartate Amino Transferase 56 U/L (17-59); Bilirubin,Total 0.6 mg/dL (0.2-1.3); Blood Urea Nitrogen 71 mg/dL (9-20); Calcium 7.4 mg/dL (8.4-10.2); Carbon Dioxide 22 mmol/L (22-30); Chloride 108 mmol/L (98-107); Creatine Kinase 92 U/L (55-170); Estimated CRCL calculation 16 ml/min; Estimated Glomerular Filt Rate 12; Glucose 327 mg/dL (65-110); Potassium 3.9 mmol/L (3.4-5.0); Sodium 139 mmol/L (137-145)
[2021-08-29 16:47] LABS: Troponin I 0.068 ng/mL (0.000-0.034)
[2021-08-29 17:16] LABS: Influenza A QL RT-PCR Negative (Negative); Influenza B QL RT-PCR Negative (Negative); SARS-CoV-2 RNA PCR Positive
[2021-08-29 17:28] LABS: Alveolar/Arterial O2 Gradient 29.3 mmHg; Base Excess ABG -6.5 mEq/l (+/-2.0); Device ROOM AIR; Fractional Inspired Oxygen 21 %; Modified Allen's Test Pass; Oxygen Content ABG 11.9 %vol (16.0-22.0); Oxyhemoglobin 93.8 % THb (90.0-100.0); PCO2 ABG 31.8 mmHg (35.0-45.0); PO2 ABG 82.4 mmHg (80.0-100.0); PO2 FiO2 Ratio Arterial Blood 3.92 %; Site Drawn RIGHT RADIAL; Total Hemoglobin 8.9 g/dL (12.0-18.0); pH ABG 7.371 (7.350-7.450)
[2021-08-29 17:30] LABS: Add Urine Microscopic? YES; Appearance Urine Clear (Clear); Bilirubin Urine Negative (Negative); Blood Urine 1+ (Negative); Color Urine Straw (Yellow); Glucose Urine UA 3+ mg/dL (Negative); Ketones Urine Negative (Negative); Leukocyte Esterase Ur Negative LEU/UL (Negative); Nitrate Urine Negative (Negative); Protein Urine 2+ mg/dL (Negative); RBC Urine 0-2 /hpf (0-2); Specific Grav Ur 1.009 (1.001-1.035); Squamous Epithelial Cell Urine Rare /hpf (Few); Urobilinogen Urine Negative mg/dL (<2.0); WBC Urine 0-3 /hpf
[2021-08-29 18:01] LABS: NT Pro B Type Natriuretic Pept 6170 pg/mL (5-100)
[2021-08-29] MEDS: SODIUM CHLORIDE 0.9% IV 1,000 ML 100 ML IV CONT (18:13)
[2021-08-29] MEDS: hydrALAZINE HCL 20 MG/ML VIAL 10 MG IV PUSH (19:57)
--- NOTE | 2021-08-29 20:37 | PM.IMHP ---
H&P: HPI History of Present Illness Date/Time: 08/29/21 20:37 Chief Complaint: Shortness of breath. Narrative: This is a 65-year-old male with past medical history significant for dyslipidemia, hypertension, type 2 diabetes mellitus, insulin dependent, benign prostatic hyperplasia, gout. Patient presents to the emergency room due to persistent productive cough for 2+ weeks patient had been to the [facility] where he was given in Z-Arias and Solu Medrol but has not improved. Patient having night sweats as well he denies chills or fevers. Sputum is greenish to clear and copious. Patient denies any nausea ,vomiting, diarrhea abdominal pain, states that he was feeling just miserable has had poor appetite, health feels lightheaded. Preliminary workup was significant for chest x-ray with lung infiltrates and a rapid COVID test was positive. Patient has been admitted for further evaluation management and treatment. Review of Systems Review of Systems: Productive cough for 2 weeks, shortness of breath, lightheadedness, poor appetite, night sweats. Constitutional: Constitutional: Reports fatigue, Reports lethargy, Reports malaise, Reports night sweats, Reports poor appetite and Reports weakness Eyes: Eyes: Denies change in vision ENT: Denies dysphagia, Denies vertigo, Reports nasal congestion, Reports nasal discharge and Denies nasal obstruction Cardiovascular: Cardiovascular: Denies pedal edema, Denies claudication, Denies leg edema, Denies radiating jaw, neck or arm pain, Denies palpitations, Denies dyspnea on exertion, Denies orthopnea and Denies paroxysmal nocturnal dyspnea Respiratory: Respiratory: Reports change in phlegm color, Reports chest congestion, Reports cough, Reports excessive phlegm production and Reports dyspnea Gastrointestinal: Gastrointestinal: Denies abdominal pain, Denies dyspepsia, Denies heartburn, Denies nausea and Denies vomiting Genitourinary: Genitourinary: Denies dysuria Musculoskeletal: Musculoskeletal: Denies arthralgias and Denies joint swelling Integumentary/Breasts: Skin/Breast: Denies rash Neurologic: Denies focal weakness and Denies Sensory deficit (Neuro) Psychiatric: Psychiatric: Reports no additional psychiatric complaints and Reports as per HPI Endocrine: Endocrine: Denies cold intolerance, Denies heat intolerance, Denies polyphagia, Denies polydipsia and Denies palpitations Hematologic/Lymphatic: Hematologic/Lymphatic: Reports no additional hematologic/lymphatic complaints and Reports as per HPI Allergic/Immunologic: Allergic/Immunologic: Reports no additional allergic/immunologic complaints and Reports as per HPI [facility] Past Medical History Medical History Benign prostatic hyperplasia Chronic anemia Chronic kidney disease, stage 4 (severe) Chronic obstructive pulmonary disease Coronary artery disease Catheterization and 2005 showed a chronically occluded RCA. In 2016 he had a drug-eluting stent to the proximal left anterior descending. Diabetes mellitus Diastolic congestive heart failure Echocardiogram on 01/31/2021 showed normal LV systolic function with moderately increased LV wall thickness and grade 1 diastolic dysfunction with an EF estimated 55%. Hyperlipidemia, unspecified Hypertension Orthostasis Related to autonomic dysfunction from his diabetes. Type 2 diabetes mellitus Hemoglobin A1c was 8.4% on 01/08/2021. Surgical History Surgical History History of ankle surgery Left History of eye surgery Laser eye surgery. Status post cardiac pacemaker procedure His 1st pacemaker was placed in his 30s for sinus pause, syncope and bradycardia and he had generator changes in 2002, 2006, and 2011. His RV lead has high thresholds and he was not pacing in also it was turned off. Status post insertion of drug-eluting stent into left anterior descending (LAD) artery for coronary
[2021-08-29] MEDS: carvediloL 12.5 MG TABLET PO (21:30)
[2021-08-30] VITALS (10 sets, daily range): BP systolic 145–174; BP diastolic 68–115; PULSE 78–94; RESP 16–20; TEMP 36–36.9; O2SAT 91–100
[2021-08-30] MEDS: SODIUM CHLORIDE 0.9% IV 1,000 ML 100 ML IV CONT ×2 (04:42→16:27)
[2021-08-30] MEDS: cefTRIAXone 2 GM in SODIUM CHLORIDE 0.9% IV 100 ML 200 ML IVPB ×2 (04:42→21:09)
[2021-08-30 07:03] LABS: Anion Gap 7 mmol/L (8-16); Blood Urea Nitrogen 58 mg/dL (9-20); Calcium 7.3 mg/dL (8.4-10.2); Carbon Dioxide 22 mmol/L (22-30); Chloride 111 mmol/L (98-107); Estimated CRCL calculation 17 ml/min; Estimated Glomerular Filt Rate 12; Glucose 113 mg/dL (65-110); Potassium 3.4 mmol/L (3.4-5.0); Sodium 140 mmol/L (137-145)
[2021-08-30 08:00] LABS: Glucose Point of Care 105 mg/dl (65-105)
[2021-08-30] MEDS: CHOLECALCIFEROL 1,000 UNITS TABLET 5000 UNITS PO ×2 (08:48→16:27)
[2021-08-30] MEDS: EZETIMIBE 10 MG TABLET PO (08:49)
[2021-08-30] MEDS: CLOPIDOGREL BISULFATE 75 MG TABLET PO (08:49)
[2021-08-30] MEDS: CALCIUM ACETATE 667 MG TABLET PO (08:49)
[2021-08-30] MEDS: ATORVASTATIN 40 MG TABLET 80 MG PO (08:49)
[2021-08-30] MEDS: LOSARTAN POTASSIUM 50 MG TABLET PO (08:49)
[2021-08-30] MEDS: MULTIVITAMINS THERAPEUTIC TAB (*BKC) 1 TABLET PO (08:49)
[2021-08-30] MEDS: ASPIRIN 81 MG ENTERIC TABLET PO (08:49)
[2021-08-30] MEDS: TAMSULOSIN HCL 0.4 MG CAPSULE PO (08:49)
[2021-08-30] MEDS: carvediloL 12.5 MG TABLET PO ×2 (08:50→21:11)
[2021-08-30] MEDS: VITAMIN E 1,000 UNIT CAPSULE 1000 UNIT PO (08:51)
[2021-08-30] MEDS: allopurinoL 100 MG TABLET PO ×2 (08:51→16:28)
[2021-08-30] MEDS: INSULIN GLARGINE (*BKC) 100 UNITS/ML 72 UNITS SUB-Q (08:52)
[2021-08-30] MEDS: OMEGA 3 POLYUNSAT FATTY ACIDS 1 GM CAP 2 GM PO (08:52)
--- NOTE | 2021-08-30 09:30 | PM.CNNEP ---
Assessment and Plan Additional Plan 1. The patient has chronic kidney disease. This is due to diabetes. He has slowly progressive disease. His latest creatinine is around 4. This was before he got sick. He also had a creatinine of around 4 3 months ago. 2. The patient has acute kidney injury. This could be related to dehydration. Perhaps he is not eating as well and he has been taking diuretics at home. He could also have some affects of the COVID. I would think this would be less likely because the patient is not even hypoxic. The patient did receive an antibiotic for the COVID but also received steroids so I do not think this would be allergic interstitial nephritis. Obstruction is always a possibility ankle marijuana fries her also always a possibility but I think these are less likely in this clinical scenario. I agree with giving some IV fluids. 3. The patient has diabetes. He is on Accu-Cheks and sliding scale insulin per hospitalist. 4. The patient has hypertension He takes losartan and carvedilol. His blood pressure is a little bit on the high side. His losartan is on hold. Will follow this for couple of days before deciding what to do next. 5. The patient has anemia. Hemoglobin is 8.4. it has been running in the 90s in the office. Will start Epogen. 6. The patient has renal osteodystrophy. Will check a phosphorus level tomorrow. 7. The patient has COVID. Chest x-ray is somewhat indeterminate because of compressed lung volumes. He is not hypoxic. History of Present Illness Reason for Consult Consult date: 08/30/21 Chief Complaint Chief complaint: Covid infection, CHRIS, dyspnea History of Present Illness Narrative: Freddie is a very pleasant 65-year-old gentleman who has multiple medical problems including chronic kidney disease with a baseline creatinine of around 4 for the last few months. Patient has diabetic nephropathy. He also has hyperlipidemia, hypertension, depression, BPH, anemia, congestive heart failure, COPD. The patient has been having problems for about the last 10 days. He has had a cough, left earache, congestion, stuffy nose,. The patient went to urgent care and had a COVID test and this was negative. He was treated with nebulizers, prednisone, and antibiotics at the urgent care. He talked with Dr. mcgee who tried to get nebulizers for home; however the insurance refused the nebulizers. He continued to get worse so came to the emergency room. Here he was swabbed and has been determined to have COVID-19. He is not hypoxic. He is currently resting in a chair at the side of his bed. He still feels crummy but he is not short of breath. His sugars were very high when he was on the prednisone after urgent care however have settled down lately. This morning it was 105. He has not been taking any Advil Aleve ibuprofen or Motrin. He denies any bloody urine foamy urines. No bladder infections. Upon arrival to the ER he was evaluated and found to have COVID. Blood work was checked and his creatinine was up to 5. Renal consultation was requested. Review of Systems Constitutional: Constitutional: Reports no additional constitutional complaints Eyes: Eyes: Reports no additional eye complaints ENT: Reports system reviewed and no additional complaints, except as documented Cardiovascular: Cardiovascular: Reports no additional cardiovascular complaints Respiratory: Respiratory: Reports no additional respiratory complaints Gastrointestinal: Gastrointestinal: Reports no additional gastrointestinal complaints Genitourinary: Genitourinary: Reports no additional male genitourinary complaints Musculoskeletal: Musculoskeletal: Reports no additional musculoskeletal complaints Integumentary/Breasts: Skin/Breast: Reports system reviewed and no additional complaints, except as docu Neurologic: Reports system reviewed and no additional complaints, except as documented Psychiatric: Psychi
--- NOTE | 2021-08-30 09:52 | WPDCDIQUERY2 ---
CDI Query Clarification Request Patient presented to ED feeling weak, coughing, clear sputum, SOB over 2-3 weeks. COVID-19 test positive. Chest XRay revealed Small lung volumes with airspace opacities in the mid and lower lung zones, consistent with atelectasis versus pneumonia Problem List includes Multilobar lung infiltrate - codes to nonspecific abnormal lung field. Please clarify a more specific diagnosis for the xray findings and clinical picture. <VU Benítez - Last Filed: 08/30/21 10:00> Clarified Diagnosis (1) Multilobar lung infiltrate: Code(s): R91.8 - Other nonspecific abnormal finding of lung field <VU Benítez - Last Filed: 08/30/21 10:00> Status: Acute <VU Benítez - Last Filed: 08/30/21 10:00> Assessment and Plan: most likely COVID pneumonia developed secondary bacterial pneumonia treated with Rocephin and azithromycin <Le Osman MD - Last Filed: 09/19/21 17:22>
[2021-08-30 11:33] LABS: Glucose Point of Care 119 mg/dl (65-105)
[2021-08-30] MEDS: HEPARIN SODIUM 5,000 UNITS/ML VIAL 5000 UNITS SUB-Q ×2 (14:48→21:10)
--- NOTE | 2021-08-30 15:36 | PM.IMPN ---
Progress Note: A&P Assessment and Plan (1) COVID-19 virus infection: Code(s): U07.1 - COVID-19 Status: Acute Assessment and Plan: 08/30/2021 interval history patient with COVID-19 patient received 1st and 2nd shot of COVID 19 vaccine but has not received not received, at rest patient is not requiring any oxygen with any exertion patient gets short winded, will start the patient on low-dose dexamethasone, unable to start remdesivir as patient's GFR is 17, patient also had states for chronic kidney disease creatinine was 3.6 in March of 2021 he presented with a creatinine of 5 patient is seen by Nephrology patient may have dehydration patient is being gently hydrate will continue to monitor kidney function, chest x-ray suspicious of pneumonia showing bilateral opacities patient being treated with Rocephin and azithromycin will continue to monitor. (2) Chronic obstructive pulmonary disease: Qualifiers: COPD type: emphysema Emphysema type: unspecified Qualified Code(s): J43.9 - Emphysema, unspecified Code(s): J44.9 - Chronic obstructive pulmonary disease, unspecified Status: Acute (3) Coronary artery disease: Qualifiers: Coronary Disease-Associated Artery/Lesion type: [place] artery [place] vs. transplanted heart: [place] heart Associated angina: without angina Qualified Code(s): I25.10 - Atherosclerotic heart disease of [place] coronary artery without angina pectoris Code(s): I25.10 - Atherosclerotic heart disease of [place] coronary artery without angina pectoris Status: Acute (4) Type 2 diabetes mellitus with hyperglycemia, with long-term current use of insulin: Code(s): E11.65 - Type 2 diabetes mellitus with hyperglycemia; Z79.4 - watermelon inspector (current) use of insulin Status: Acute (5) Acute kidney injury superimposed on CKD: Code(s): N17.9 - Acute kidney failure, unspecified; N18.9 - Chronic kidney disease, unspecified Status: Acute (6) Hypertension: Code(s): I10 - Essential (primary) hypertension Status: Acute (7) Diastolic congestive heart failure: Code(s): I50.30 - Unspecified diastolic (congestive) heart failure Status: Inactive (8) Multilobar lung infiltrate: Code(s): R91.8 - Other nonspecific abnormal finding of lung field Status: Acute Subjective Date/time seen: 08/30/21 15:36 HPI narrative: Patient is 65 years old white male presented to the ED with feeling weak, coughing, clears sputum, shortness of breath over the last 2 to 3 weeks. Was seen at urgent care, started on steroid and antibiotic without any improvement. Then was seen by his family physician and had a prescription of nebulizer machine which she could not get. Today was told to go to the emergency room for further evaluation. History of CHF, diabetes, COPD, CKD, elevated troponin and pneumonia. Patient had 2 Covid vaccine 1 year ago, did not take the booster dose. Patient does not smoke, does not use oxygen at home. Patient denies any chest pain, back pain, headache, nausea, vomiting, fever, chills. Patient main complaint at this minute is stress does not know what this can happen. Patient drove himself to the emergency room, lives at home with his who has dementia 08/30/2021 interval history patient with COVID-19 patient received 1st and 2nd shot of COVID 19 vaccine but has not received not received, at rest patient is not requiring any oxygen with any exertion patient gets short winded, will start the patient on low-dose dexamethasone, unable to start remdesivir as patient's GFR is 17, patient also had states for chronic kidney disease creatinine was 3.6 in March of 2021 he presented with a creatinine of 5 patient is seen by Nephrology patient may have dehydration patient is being gently hydrate will continue to monitor kidney function, chest x-ray suspicious of pneumonia showing bilateral opacities patient being treated with Roceph
[2021-08-30 16:33] LABS: Glucose Point of Care 108 mg/dl (65-105)
[2021-08-30 19:55] LABS: Glucose Point of Care 174 mg/dl (65-105)
[2021-08-31] VITALS (9 sets, daily range): BP systolic 129–186; BP diastolic 72–83; PULSE 68–94; RESP 16–20; TEMP 36.1–37.1; O2SAT 79–95
[2021-08-31 08:05] LABS: Glucose Point of Care 75 mg/dl (65-105)
[2021-08-31] MEDS: hydrALAZINE HCL 20 MG/ML VIAL 10 MG IV PUSH (08:31)
[2021-08-31] MEDS: TAMSULOSIN HCL 0.4 MG CAPSULE PO (08:32)
[2021-08-31] MEDS: ATORVASTATIN 40 MG TABLET 80 MG PO (08:32)
[2021-08-31] MEDS: CALCIUM ACETATE 667 MG TABLET PO (08:32)
[2021-08-31] MEDS: OMEGA 3 POLYUNSAT FATTY ACIDS 1 GM CAP 2 GM PO (08:32)
[2021-08-31] MEDS: EZETIMIBE 10 MG TABLET PO (08:32)
[2021-08-31] MEDS: VITAMIN E 1,000 UNIT CAPSULE 1000 UNIT PO (08:32)
[2021-08-31] MEDS: CHOLECALCIFEROL 1,000 UNITS TABLET 5000 UNITS PO ×2 (08:32→16:39)
[2021-08-31] MEDS: allopurinoL 100 MG TABLET PO ×2 (08:32→16:39)
[2021-08-31] MEDS: carvediloL 12.5 MG TABLET PO ×2 (08:33→20:35)
[2021-08-31] MEDS: MULTIVITAMINS THERAPEUTIC TAB (*BKC) 1 TABLET PO (08:33)
[2021-08-31] MEDS: LOSARTAN POTASSIUM 50 MG TABLET PO (08:33)
[2021-08-31] MEDS: ASPIRIN 81 MG ENTERIC TABLET PO (08:36)
[2021-08-31] MEDS: CLOPIDOGREL BISULFATE 75 MG TABLET PO (08:36)
[2021-08-31 09:07] LABS: Hematocrit 23.8 % (42.0-52.0); Hemoglobin 7.9 g/dL (14.0-18.0); Mean Corpuscular HGB Conc 33.2 g/dl (32-36); Mean Corpuscular Hemoglobin 32.1 pg (26-34); Mean Corpuscular Volume 96.7 fl (80-100); Mean Platelet Volume 10.2 fl (7.4-10.4); Platelet Count Result 221 k/mm3 (150-375); Red Blood Count 2.46 M/mm3 (4.6-6.20); Red Cell Distribution Width 15.1 % (11.5-14.5); White Blood Count 9.3 K/mm3 (4.5-10.0)
--- NOTE | 2021-08-31 09:10 | PC.NURSE ---
MD Nunez informed lantus 75 units held for bs 72.
[2021-08-31] MEDS: FLUTICASONE/UMECLIDIN/VILANTER 100-62.5-25 MCG ELLIPTA 1 PUFF INHALATION (09:16)
[2021-08-31 09:27] LABS: Albumin Level 2.9 g/dL (3.5-5.1); Anion Gap 8 mmol/L (8-16); Blood Urea Nitrogen 52 mg/dL (9-20); CRP 1.2 mg/dL (<1.0); Calcium 7.6 mg/dL (8.4-10.2); Carbon Dioxide 23 mmol/L (22-30); Chloride 109 mmol/L (98-107); Estimated CRCL calculation 19 ml/min; Estimated Glomerular Filt Rate 14; Glucose 74 mg/dL (65-110); Magnesium 1.7 mg/dL (1.6-2.3); Phosphorus 4.6 mg/dL (2.5-4.5); Potassium 3.6 mmol/L (3.4-5.0); Sodium 140 mmol/L (137-145)
[2021-08-31] MEDS: cloNIDine HCL 0.2 MG TABLET PO (10:22)
--- NOTE | 2021-08-31 10:24 | PC.NURSE ---
Md Paiz called related to pt bp Prn hydralazine 10 mg IV push given once this morning, pt bp still elevated at 193/90 with activity and 185/94 at rest, NO received for one time dose clonidine 0.2 mg po and norvac 5 mg po daily.
[2021-08-31] MEDS: amLODIPine BESYLATE 5 MG TABLET PO (10:25)
--- NOTE | 2021-08-31 10:31 | PM.PNNEP ---
Progress Note: A&P Additional Plan 1. The patient has chronic kidney disease. This is due to diabetes. He has slowly progressive disease. His latest creatinine is around 4. This was before he got sick. He also had a creatinine of around 4.0 three months ago. 2. The patient has acute kidney injury. this is likely related to dehydration. He received some IV fluids and his creatinine is down to 4.2, near baseline. 3. The patient has diabetes. He is on Accu-Cheks and sliding scale insulin per hospitalist. 4. The patient has hypertension He takes losartan and carvedilol. His blood pressure is higher today. I asked the nurse to give him some clonidine and also start him on Norvasc 5 mg a day. 5. The patient has anemia. Hemoglobin is 7.9. it has been running in the 9s in the office. BP too high for epo today. He may need some of this as an outpatient. 6. The patient has renal osteodystrophy. Phosphorus level is good at 4.6 7. The patient has COVID. Chest x-ray is somewhat indeterminate because of compressed lung volumes. He is not hypoxic. Subjective Date/time seen: 08/31/21 10:31 Interval history: Freddie is feeling okay. Last night he had some trouble coughing some sputum up. This eventually came up. He has no shortness of breath now. He is not on oxygen. He is getting some physical and occupational therapy. Review of Systems Cardiovascular: Cardiovascular: Reports no additional cardiovascular complaints Respiratory: Respiratory: Reports no additional respiratory complaints Gastrointestinal: Gastrointestinal: Reports no additional gastrointestinal complaints Genitourinary: Genitourinary: Reports no additional male genitourinary complaints Exam Narrative: WDWN in NAD skin no rash head ncat lungs clear But decreased breath sound cor reg no rub abd BS+ nontender and soft ext no edema. Objective Data Vital Signs Vital Signs: Vital Signs - 24 hr 08/30/21 11:53 08/30/21 16:00 08/30/21 21:11 Temperature 36.0 C L 36.2 C L Pulse Rate 86 84 78 Respiratory Rate 18 18 Blood Pressure 158/86 H 149/73 H Pulse Oximetry 93 94 08/30/21 23:56 08/31/21 04:00 08/31/21 08:00 Temperature 36.9 C 37.1 C 36.4 C Pulse Rate 87 93 89 Respiratory Rate 16 16 18 Blood Pressure 174/89 H 166/83 H 186/82 H Pulse Oximetry 94 94 95 08/31/21 08:33 Temperature Pulse Rate 94 Respiratory Rate Blood Pressure Pulse Oximetry Intake/Output Intake/Output: Intake & Output 08/28/21 08/29/21 08/30/21 08/31/21 23:59 23:59 23:59 23:59 Intake Total 4220 990 Output Total 400 800 Balance 3820 190 Meds/Results Medications: Active Medications Generic Name Dose Route Start Last Admin Trade Name Freq PRN Reason Stop Dose Admin Albuterol 2 puff 08/29/21 21:36 Albuterol Sulfate (*Sp) Aerosol 1 Puff INHALATION QIDRT PRN Shortness Of Breath Albuterol 2.5 mg 08/30/21 00:32 Albuterol Sulfate Neb 2.5 Mg/3 Ml Inh INHALATION Q6H PRN shortness of breath or wheezing Albuterol 1 puff 08/30/21 00:32 Albuterol Sulfate (*Sp) Aerosol 1 Puff INHALATION Q4H PRN Cough Allopurinol 100 mg 08/30/21 08:00 08/31/21 08:32 Allopurinol 100 Mg Tablet PO 100 mg BIDWM MADIE Administration Amlodipine Besylate 5 mg 08/31/21 10:25 Amlodipine Besylate 5 Mg Tablet PO QAM MADIE Aspirin 81 mg 08/30/21 09:00 08/31/21 08:36 Aspirin 81 Mg Enteric Tablet PO 81 mg DAILY MADIE Administration Atorvastatin Calcium 80 mg 08/30/21 09:00 08/31/21 08:32 Atorvastatin 40 Mg Tablet PO 80 mg DAILY MADIE Administration Calcium Acetate 667 mg 08/30/21 09:00 08/31/21 08:32 Calcium Acetate 667 Mg Tablet PO 667 mg DAILY MADIE Administration Carvedilol 12.5 mg 08/30/21 09:00 08/31/21 08:33 Carvedilol 12.5 Mg Tablet PO 12.5 mg Q12HR MADIE Administration Clopidogrel Bisulfate 75 mg 08/30/21 09:00 08/31/21 08:36 Clopid
--- NOTE | 2021-08-31 11:34 | PM.IMPN ---
Progress Note: A&P Assessment and Plan (1) COVID-19 virus infection: Code(s): U07.1 - COVID-19 Status: Acute Assessment and Plan: Supportive care Rocephin and Zithromax for antibacterial coverage Consider remdesivir as needed 08/30/2021 interval history patient with COVID-19 patient received 1st and 2nd shot of COVID 19 vaccine but has not received not received, at rest patient is not requiring any oxygen with any exertion patient gets short winded, will start the patient on low-dose dexamethasone, unable to start remdesivir as patient's GFR is 17, patient also had states for chronic kidney disease creatinine was 3.6 in March of 2021 he presented with a creatinine of 5 patient is seen by Nephrology patient may have dehydration patient is being gently hydrate will continue to monitor kidney function, chest x-ray suspicious of pneumonia showing bilateral opacities patient being treated with Rocephin and azithromycin will continue to monitor. 08/31/2021 interval history patient with COVID-19 patient received 1st and 2nd shot of COVID 19 vaccine but has not received not received booster shot, patient at rest patient is not requiring any oxygen however with any exertion patient gets short winded, unable to start remdesivir as patient's GFR is 17, patient also had states for chronic kidney disease creatinine was 3.6 in March of 2021 he presented with a creatinine of 5 patient is seen by Nephrology patient may have dehydration patient is being gently hydrate will continue to monitor kidney function, also patient BP is significantly elevated 186/[address] Paiz added amlodipine and gave one time clonidine 0.2mg PO, chest x-ray suspicious of pneumonia showing bilateral opacities patient being treated with Rocephin and azithromycin will continue to monitor. (2) Chronic obstructive pulmonary disease: Qualifiers: COPD type: emphysema Emphysema type: unspecified Qualified Code(s): J43.9 - Emphysema, unspecified Code(s): J44.9 - Chronic obstructive pulmonary disease, unspecified Status: Acute Assessment and Plan: Breathing treatments (3) Coronary artery disease: Qualifiers: Coronary Disease-Associated Artery/Lesion type: [place] artery [place] vs. transplanted heart: [place] heart Associated angina: without angina Qualified Code(s): I25.10 - Atherosclerotic heart disease of [place] coronary artery without angina pectoris Code(s): I25.10 - Atherosclerotic heart disease of [place] coronary artery without angina pectoris Status: Acute Assessment and Plan: Chest pain-free continue home meds Continue to monitor (4) Type 2 diabetes mellitus with hyperglycemia, with long-term current use of insulin: Code(s): E11.65 - Type 2 diabetes mellitus with hyperglycemia; Z79.4 - continuous churn buttermaker (current) use of insulin Status: Acute Assessment and Plan: Accu-Cheks AC and HS Continue home meds (5) Acute kidney injury superimposed on CKD: Code(s): N17.9 - Acute kidney failure, unspecified; N18.9 - Chronic kidney disease, unspecified Status: Acute Assessment and Plan: Likely to be pre renal azotemia Will hold Lasix Will hold losartan (6) Hypertension: Code(s): I10 - Essential (primary) hypertension Status: Acute Assessment and Plan: Continue to monitor (7) Diastolic congestive heart failure: Code(s): I50.30 - Unspecified diastolic (congestive) heart failure Status: Inactive Assessment and Plan: Patient appears to be rather dry Continue to monitor daily intake and output (8) Multilobar lung infiltrate: Code(s): R91.8 - Other nonspecific abnormal finding of lung field Status: Acute Assessment and Plan: Blood cultures in progress Started on Rocephin and Zithromax Patient failed outpatient therapy with Solu-Medrol and Z pack Subjective Date/time seen: 08/31/21 11:34 08/30/2021 interval
[2021-08-31 11:40] LABS: Glucose Point of Care 82 mg/dl (65-105)
--- NOTE | 2021-08-31 11:44 | PC.NURSE ---
Continuing to monitor pt bp 180/83 currently after receiving clonidine 0.2 mg po once and amlopidine 5 mg po after morning bp medication given this morning. Md Nunez informed, continue to monitor bp.
[2021-08-31] MEDS: HEPARIN SODIUM 5,000 UNITS/ML VIAL 5000 UNITS SUB-Q ×2 (13:03→20:35)
[2021-08-31] MEDS: SODIUM CHLORIDE 0.9% IV 1,000 ML 100 ML IV CONT (13:27)
[2021-08-31] MEDS: ACETAMINOPHEN 325 MG TABLET 650 MG PO (16:00)
[2021-08-31 16:54] LABS: Glucose Point of Care 87 mg/dl (65-105)
[2021-08-31 20:18] LABS: Glucose Point of Care 149 mg/dl (65-105)
[2021-08-31] MEDS: cefTRIAXone 2 GM in SODIUM CHLORIDE 0.9% IV 100 ML 200 ML IVPB (20:35)
[2021-09-01] VITALS (8 sets, daily range): BP systolic 135–164; BP diastolic 74–89; PULSE 75–95; RESP 14–18; TEMP 35.8–36.9; O2SAT 92–94
[2021-09-01 06:09] LABS: Basophils Percent Auto 0.1 % (0.2-1.2); Hematocrit 23.7 % (42.0-52.0); Hemoglobin 7.5 g/dL (14.0-18.0); Immature Granulocyte Absolute 0.03 K/mm3 (0.00-0.031); Immature Granulocyte Percent A 0.4 % (0-0.5); Lymphocytes Absolute Auto 0.99 K/mm3 (0.9-3.2); Lymphocytes Percent Auto 14.1 % (18.3-44.2); Mean Corpuscular HGB Conc 31.6 g/dl (32-36); Mean Corpuscular Volume 97.9 fl (80-100); Mean Platelet Volume 10.8 fl (7.4-10.4); Monocytes Absolute Auto 0.6 K/mm3 (0.1-0.6); Monocytes Percent Auto 7.8 % (2.6-8.5); Neutrophils Absolute Auto 5.5 K/mm3 (1.3-6.7); Neutrophils Percent Auto 77.6 % (45.5-73.1); Platelet Count Result 211 k/mm3 (150-375); Red Blood Count 2.42 M/mm3 (4.6-6.20); Red Cell Distribution Width 15.2 % (11.5-14.5)
[2021-09-01 06:27] LABS: CRP 1.7 mg/dL (<1.0)
[2021-09-01 07:56] LABS: Glucose Point of Care 99 mg/dl (65-105)
[2021-09-01] MEDS: FLUTICASONE/UMECLIDIN/VILANTER 100-62.5-25 MCG ELLIPTA 1 PUFF INHALATION (08:03)
[2021-09-01 09:18] LABS: Anion Gap 6 mmol/L (8-16); Blood Urea Nitrogen 52 mg/dL (9-20); Calcium 7.6 mg/dL (8.4-10.2); Carbon Dioxide 21 mmol/L (22-30); Chloride 111 mmol/L (98-107); Estimated CRCL calculation 19 ml/min; Estimated Glomerular Filt Rate 14; Glucose 114 mg/dL (65-110); Sodium 138 mmol/L (137-145)
[2021-09-01] MEDS: OMEGA 3 POLYUNSAT FATTY ACIDS 1 GM CAP 2 GM PO (09:26)
[2021-09-01] MEDS: ATORVASTATIN 40 MG TABLET 80 MG PO (09:26)
[2021-09-01] MEDS: CHOLECALCIFEROL 1,000 UNITS TABLET 5000 UNITS PO ×2 (09:26→16:58)
[2021-09-01] MEDS: amLODIPine BESYLATE 5 MG TABLET PO (09:27)
[2021-09-01] MEDS: carvediloL 12.5 MG TABLET PO ×2 (09:27→20:07)
[2021-09-01] MEDS: allopurinoL 100 MG TABLET PO ×2 (09:27→16:59)
[2021-09-01] MEDS: TAMSULOSIN HCL 0.4 MG CAPSULE PO (09:27)
[2021-09-01] MEDS: EZETIMIBE 10 MG TABLET PO (09:27)
[2021-09-01] MEDS: VITAMIN E 1,000 UNIT CAPSULE 1000 UNIT PO (09:27)
[2021-09-01] MEDS: ASPIRIN 81 MG ENTERIC TABLET PO (09:28)
[2021-09-01] MEDS: CALCIUM ACETATE 667 MG TABLET PO (09:28)
[2021-09-01] MEDS: MULTIVITAMINS THERAPEUTIC TAB (*BKC) 1 TABLET PO (09:28)
[2021-09-01] MEDS: LOSARTAN POTASSIUM 50 MG TABLET PO (09:28)
[2021-09-01] MEDS: CLOPIDOGREL BISULFATE 75 MG TABLET PO (09:29)
--- NOTE | 2021-09-01 10:26 | PM.PNNEP ---
Progress Note: A&P Additional Plan 1. The patient has chronic kidney disease. This is due to diabetes. He has slowly progressive disease. His latest creatinine is around 4. This was before he got sick. He also had a creatinine of around 4.0 three months ago. 2. The patient has acute kidney injury. renal ultrasound is unremarkable. Urine electrolytes are non pre renal but he was on diuretics at the time. His creatinine peaked at 5.0. this is likely related to dehydration. He received some IV fluids and his creatinine is down to 4.3, near baseline. 3. The patient has diabetes. He is on Accu-Cheks and sliding scale insulin per hospitalist. 4. The patient has hypertension He takes losartan and carvedilol. His blood pressure was high last night. It is better now at about 150 on the amlodipine. 5. The patient has anemia. Hemoglobin is 7.9. it has been running in the 9s in the office. Since is blood pressure is better I will give him a dose of Epogen. 6. The patient has renal osteodystrophy. Phosphorus level is good at 4.6 7. The patient has COVID. Chest x-ray is somewhat indeterminate because of compressed lung volumes. He is not hypoxic. Subjective Date/time seen: 09/01/21 10:26 Interval history: Freddie is feeling okay. he still has somewhat of a cough. Feels a bit dyspneic when he has a coughing fit. His oxygen saturations have been okay. Blood pressure was high yesterday evening even after the clonidine but this morning it is better with his Norvasc. Exam Narrative: WDWN in NAD skin no rash or subcu nodules head ncat lungs clear But decreased breath sound cor reg no rub abd BS+ nontender and soft ext no edema or cyanosis. Objective Data Vital Signs Vital Signs: Vital Signs - 24 hr 08/31/21 12:00 08/31/21 14:04 08/31/21 16:00 Temperature 36.6 C 36.1 C L Pulse Rate 87 87 Respiratory Rate 20 20 Blood Pressure 180/83 H 150/74 H 129/72 Pulse Oximetry 79 L 93 08/31/21 20:00 08/31/21 20:35 08/31/21 21:18 Temperature 36.1 C L Pulse Rate 92 68 Respiratory Rate 16 Blood Pressure 133/76 Pulse Oximetry 93 93 09/01/21 00:00 09/01/21 04:00 09/01/21 08:00 Temperature 36.9 C 36.1 C L Pulse Rate 88 91 Respiratory Rate 18 18 Blood Pressure 152/74 H 151/80 H Pulse Oximetry 93 94 92 09/01/21 09:27 Temperature Pulse Rate 89 Respiratory Rate Blood Pressure Pulse Oximetry Intake/Output Intake/Output: Intake & Output 08/29/21 08/30/21 08/31/21 09/01/21 23:59 23:59 23:59 23:59 Intake Total 4570 3070 1590 Output Total 400 1475 850 Balance 4170 1595 740 Meds/Results Medications: Active Medications Generic Name Dose Route Start Last Admin Trade Name Freq PRN Reason Stop Dose Admin Acetaminophen 650 mg 08/31/21 15:51 08/31/21 16:00 Acetaminophen 325 Mg Tablet PO 650 mg Q6H PRN Administration Mild Pain (1-3) or Fever Albuterol 2.5 mg 08/30/21 00:32 Albuterol Sulfate Neb 2.5 Mg/3 Ml Inh INHALATION Q6H PRN shortness of breath or wheezing Albuterol 1 puff 08/30/21 00:32 Albuterol Sulfate (*Sp) Aerosol 1 Puff INHALATION Q4H PRN Cough Allopurinol 100 mg 08/30/21 08:00 09/01/21 09:27 Allopurinol 100 Mg Tablet PO 100 mg BIDWM MADIE Administration Amlodipine Besylate 5 mg 08/31/21 10:25 09/01/21 09:27 Amlodipine Besylate 5 Mg Tablet PO 5 mg QAM MADIE Administration Aspirin 81 mg 08/30/21 09:00 09/01/21 09:28 Aspirin 81 Mg Enteric Tablet PO 81 mg DAILY MADIE Administration Atorvastatin Calcium 80 mg 08/30/21 09:00 09/01/21 09:26 Atorvastatin 40 Mg Tablet PO 80 mg DAILY MADIE Administration Benzonatate 200 mg 09/01/21 13:00 Benzonatate 100 Mg Capsule PO TID [facility] Calcium Acetate 667 mg 08/30/21 09:00 09/01/21 09:28 Calcium Acetate 667 Mg Tablet PO 667 mg DAILY MADIE Administration Carvedilol 12.5 mg 08/30/21 09:00 09/01
[2021-09-01] MEDS: predniSONE 20 MG TABLET 40 MG PO (10:31)
[2021-09-01 11:40] LABS: Glucose Point of Care 96 mg/dl (65-105)
--- NOTE | 2021-09-01 12:14 | PM.IMPN ---
Progress Note: A&P Assessment and Plan (1) COVID-19 virus infection: Code(s): U07.1 - COVID-19 Status: Acute Assessment and Plan: Supportive care Rocephin and Zithromax for antibacterial coverage Consider remdesivir as needed 08/30/2021 interval history patient with COVID-19 patient received 1st and 2nd shot of COVID 19 vaccine but has not received not received, at rest patient is not requiring any oxygen with any exertion patient gets short winded, will start the patient on low-dose dexamethasone, unable to start remdesivir as patient's GFR is 17, patient also had states for chronic kidney disease creatinine was 3.6 in March of 2021 he presented with a creatinine of 5 patient is seen by Nephrology patient may have dehydration patient is being gently hydrate will continue to monitor kidney function, chest x-ray suspicious of pneumonia showing bilateral opacities patient being treated with Rocephin and azithromycin will continue to monitor. 08/31/2021 interval history patient with COVID-19 patient received 1st and 2nd shot of COVID 19 vaccine but has not received not received booster shot, patient at rest patient is not requiring any oxygen however with any exertion patient gets short winded, unable to start remdesivir as patient's GFR is 17, patient also had states for chronic kidney disease creatinine was 3.6 in March of 2021 he presented with a creatinine of 5 patient is seen by Nephrology patient may have dehydration patient is being gently hydrate will continue to monitor kidney function, also patient BP is significantly elevated 186/[address] Paiz added amlodipine and gave one time clonidine 0.2mg PO, chest x-ray suspicious of pneumonia showing bilateral opacities patient being treated with Rocephin and azithromycin will continue to monitor. 09/01/2021 interval history patient with COVID-19 patient received 1st and 2nd shot of COVID 19 vaccine but has not received not received booster shot, patient at rest patient is not requiring any oxygen however with any exertion patient gets short winded, unable to start remdesivir as patient's GFR is 17, Today patient had persistent and audible wheezing, will start the patient on Tessalon, guaifenesin and short course prednisone, and continue DuoNeb, patient also has chronic kidney disease creatinine was 3.6 in March of 2021 he presented with a creatinine of 5 patient is seen by Nephrology patient may have dehydration patient is being gently hydrate will continue to monitor kidney function and today it is 4.3, also patient BP is significantly elevated 186/[address] Paiz added amlodipine and gave one time clonidine 0.2mg PO, chest x-ray suspicious of pneumonia showing bilateral opacities patient being treated with Rocephin and azithromycin, repeat chest x-ray tomorrow, will continue to monitor. 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 transplanted heart: [place] heart Associated angina: without angina Qualified Code(s): I25.10 - Atherosclerotic heart disease of [place] coronary artery without angina pectoris Code(s): I25.10 - Atherosclerotic heart disease of [place] coronary artery without angina pectoris Status: Acute Assessment and Plan: Chest pain-free continue home meds Continue to monitor (4) Type 2 diabetes mellitus with hyperglycemia, with long-term current use of insulin: Code(s): E11.65 - Type 2 diabetes mellitus with hyperglycemia; Z79.4 - termite inspector (current) use of insulin Status: Acute Assessment and Plan: Accu-Cheks AC and HS Co
[2021-09-01] MEDS: EPOETIN ALFA-EPBX 10,000 UNITS/ML VIAL 10000 UNITS SUB-Q (12:20)
[2021-09-01] MEDS: BENZONATATE 100 MG CAPSULE 200 MG PO ×2 (12:20→16:59)
[2021-09-01] MEDS: HEPARIN SODIUM 5,000 UNITS/ML VIAL 5000 UNITS SUB-Q ×2 (14:16→20:07)
[2021-09-01] MEDS: SODIUM CHLORIDE 0.9% IV 1,000 ML 100 ML IV CONT (16:03)
[2021-09-01 16:39] LABS: Glucose Point of Care 201 mg/dl (65-105)
[2021-09-01] MEDS: INSULIN ASPART (*BKC) 100 UNITS/ML SUB-Q (16:59)
[2021-09-01] MEDS: guaiFENesin 12 HR 600 MG TABCR PO (20:07)
[2021-09-01] MEDS: cefTRIAXone 2 GM in SODIUM CHLORIDE 0.9% IV 100 ML 200 ML IVPB (20:08)
[2021-09-01 20:46] LABS: Glucose Point of Care 260 mg/dl (65-105)
[2021-09-02] VITALS (9 sets, daily range): BP systolic 140–169; BP diastolic 68–89; PULSE 80–96; RESP 18–20; TEMP 35.9–36.6; O2SAT 90–99
[2021-09-02] MEDS: ACETAMINOPHEN 325 MG TABLET 650 MG PO (00:49)
[2021-09-02] MEDS: SODIUM CHLORIDE 0.9% IV 1,000 ML 100 ML IV CONT (05:57)
[2021-09-02] MEDS: HEPARIN SODIUM 5,000 UNITS/ML VIAL 5000 UNITS SUB-Q ×3 (05:57→21:02)
[2021-09-02 06:12] LABS: Basophils Percent Auto 0.1 % (0.2-1.2); Hematocrit 23.3 % (42.0-52.0); Hemoglobin 7.6 g/dL (14.0-18.0); Immature Granulocyte Absolute 0.03 K/mm3 (0.00-0.031); Immature Granulocyte Percent A 0.4 % (0-0.5); Lymphocytes Absolute Auto 0.74 K/mm3 (0.9-3.2); Mean Corpuscular HGB Conc 32.6 g/dl (32-36); Mean Corpuscular Volume 95.1 fl (80-100); Mean Platelet Volume 10.7 fl (7.4-10.4); Monocytes Absolute Auto 0.6 K/mm3 (0.1-0.6); Monocytes Percent Auto 7.2 % (2.6-8.5); Neutrophils Absolute Auto 6.9 K/mm3 (1.3-6.7); Neutrophils Percent Auto 83.3 % (45.5-73.1); Platelet Count Result 227 k/mm3 (150-375); Red Blood Count 2.45 M/mm3 (4.6-6.20); White Blood Count 8.2 K/mm3 (4.5-10.0)
[2021-09-02 06:28] LABS: Albumin Level 2.7 g/dL (3.5-5.1); Anion Gap 8 mmol/L (8-16); Blood Urea Nitrogen 52 mg/dL (9-20); CRP 1.6 mg/dL (<1.0); Calcium 7.6 mg/dL (8.4-10.2); Carbon Dioxide 20 mmol/L (22-30); Chloride 109 mmol/L (98-107); Estimated CRCL calculation 19 ml/min; Estimated Glomerular Filt Rate 14; Glucose 240 mg/dL (65-110); Phosphorus 5.5 mg/dL (2.5-4.5); Sodium 137 mmol/L (137-145)
[2021-09-02 08:23] LABS: Glucose Point of Care 225 mg/dl (65-105)
[2021-09-02] MEDS: FLUTICASONE/UMECLIDIN/VILANTER 100-62.5-25 MCG ELLIPTA 1 PUFF INHALATION (08:49)
[2021-09-02] MEDS: allopurinoL 100 MG TABLET PO ×2 (09:16→16:44)
[2021-09-02] MEDS: ASPIRIN 81 MG ENTERIC TABLET PO (09:16)
[2021-09-02] MEDS: INSULIN ASPART (*BKC) 100 UNITS/ML SUB-Q ×2 (09:16→16:44)
[2021-09-02] MEDS: guaiFENesin 12 HR 600 MG TABCR PO ×2 (09:16→21:02)
[2021-09-02] MEDS: EZETIMIBE 10 MG TABLET PO (09:17)
[2021-09-02] MEDS: predniSONE 20 MG TABLET 40 MG PO (09:17)
[2021-09-02] MEDS: ATORVASTATIN 40 MG TABLET 80 MG PO (09:17)
[2021-09-02] MEDS: amLODIPine BESYLATE 5 MG TABLET PO (09:17)
[2021-09-02] MEDS: MULTIVITAMINS THERAPEUTIC TAB (*BKC) 1 TABLET PO (09:17)
[2021-09-02] MEDS: TAMSULOSIN HCL 0.4 MG CAPSULE PO (09:17)
[2021-09-02] MEDS: CHOLECALCIFEROL 1,000 UNITS TABLET 5000 UNITS PO ×2 (09:17→16:44)
[2021-09-02] MEDS: CLOPIDOGREL BISULFATE 75 MG TABLET PO (09:18)
[2021-09-02] MEDS: LOSARTAN POTASSIUM 50 MG TABLET PO (09:18)
[2021-09-02] MEDS: CALCIUM ACETATE 667 MG TABLET PO (09:18)
[2021-09-02] MEDS: BENZONATATE 100 MG CAPSULE 200 MG PO ×3 (09:18→16:44)
[2021-09-02] MEDS: OMEGA 3 POLYUNSAT FATTY ACIDS 1 GM CAP 2 GM PO (09:18)
[2021-09-02] MEDS: carvediloL 12.5 MG TABLET PO ×2 (09:18→21:02)
[2021-09-02] MEDS: VITAMIN E 1,000 UNIT CAPSULE 1000 UNIT PO (09:18)
[2021-09-02] MEDS: INSULIN GLARGINE (*BKC) 100 UNITS/ML 72 UNITS SUB-Q (09:20)
[2021-09-02 11:56] LABS: Glucose Point of Care 186 mg/dl (65-105)
--- NOTE | 2021-09-02 12:09 | PCRCNOTE ---
HOME O2 EVAL DONE, UNABLE TO CHART, STATUS ON ORDER IS INACTIVE. R/A REST 94% HR 92 R/A ACTIVITY 89% HR 111 R/A RECOVERY 92% HR 92 COMPLETED 1145 09/02/21
--- NOTE | 2021-09-02 12:42 | PM.IMPN ---
Progress Note: A&P Assessment and Plan (1) COVID-19 virus infection: Code(s): U07.1 - COVID-19 Status: Acute Assessment and Plan: Supportive care Rocephin and Zithromax for antibacterial coverage Consider remdesivir as needed 08/30/2021 interval history patient with COVID-19 patient received 1st and 2nd shot of COVID 19 vaccine but has not received not received, at rest patient is not requiring any oxygen with any exertion patient gets short winded, will start the patient on low-dose dexamethasone, unable to start remdesivir as patient's GFR is 17, patient also had states for chronic kidney disease creatinine was 3.6 in March of 2021 he presented with a creatinine of 5 patient is seen by Nephrology patient may have dehydration patient is being gently hydrate will continue to monitor kidney function, chest x-ray suspicious of pneumonia showing bilateral opacities patient being treated with Rocephin and azithromycin will continue to monitor. 08/31/2021 interval history patient with COVID-19 patient received 1st and 2nd shot of COVID 19 vaccine but has not received not received booster shot, patient at rest patient is not requiring any oxygen however with any exertion patient gets short winded, unable to start remdesivir as patient's GFR is 17, patient also had states for chronic kidney disease creatinine was 3.6 in March of 2021 he presented with a creatinine of 5 patient is seen by Nephrology patient may have dehydration patient is being gently hydrate will continue to monitor kidney function, also patient BP is significantly elevated 186/[address] Paiz added amlodipine and gave one time clonidine 0.2mg PO, chest x-ray suspicious of pneumonia showing bilateral opacities patient being treated with Rocephin and azithromycin will continue to monitor. 09/01/2021 interval history patient with COVID-19 patient received 1st and 2nd shot of COVID 19 vaccine but has not received not received booster shot, patient at rest patient is not requiring any oxygen however with any exertion patient gets short winded, unable to start remdesivir as patient's GFR is 17, Today patient had persistent and audible wheezing, will start the patient on Tessalon, guaifenesin and short course prednisone, and continue DuoNeb, patient also has chronic kidney disease creatinine was 3.6 in March of 2021 he presented with a creatinine of 5 patient is seen by Nephrology patient may have dehydration patient is being gently hydrate will continue to monitor kidney function and today it is 4.3, also patient BP is significantly elevated 186/[address] Paiz added amlodipine and gave one time clonidine 0.2mg PO, chest x-ray suspicious of pneumonia showing bilateral opacities patient being treated with Rocephin and azithromycin, repeat chest x-ray tomorrow, will continue to monitor. 09/02/2021 interval history patient with COVID-19 patient received 1st and 2nd shot of COVID 19 vaccine but has not received not received booster shot, patient at rest patient is not requiring any oxygen however with any exertion patient gets short winded, unable to start remdesivir as patient's GFR is 17, on 09/01 patient had persistent and audible wheezing, started the patient on Tessalon, guaifenesin and short course prednisone, and continue DuoNeb, today patient is cough is still persistent but wheezing has improved, patient also has chronic kidney disease creatinine was 3.6 in March of 2021 he presented with a creatinine of 5 patient is seen by Nephrology patient may have dehydration patient is being gently hydrated patient kidney function is slightly improving patient is more short of breath will start IVF, will continue to monitor kidney function and today it is 4.2, also patient BP is significantly elevated 186/[address] Paiz added amlodipine and gave one time clonidine 0.2mg PO, BP is improving, chest x-ray suspicious of pneumonia showing bilateral opacities patient being tr
--- NOTE | 2021-09-02 15:41 | P.PNNP_ITS ---
Progress Note: A&P Assessment and Plan (1) CHRIS (acute kidney injury): Code(s): N17.9 - Acute kidney failure, unspecified Status: Acute Assessment and Plan: * suspect due to volume depletion/dehydration * evaluation to date: * renal ultrasound unremarkable * urine electrolytes are non pre-renal but he was on diuretics at the time * improvement in renal function s/p IVFs * peak creatinine at 5.0mg/dl * follow repeat labs and UOP (2) Chronic kidney disease, stage IV (severe): Code(s): N18.4 - Chronic kidney disease, stage 4 (severe) Status: Chronic Assessment and Plan: * baseline creatinine runs ~ 4.0mg/dl * due to diabetes and age-related change (based on outpatient evaluation) (3) COVID-19 virus infection: Code(s): U07.1 - COVID-19 Status: Acute Assessment and Plan: * supportive therapy * complicated by known history of COPD * was not hypoxic on admission * however, requiring supplemental oxygen * on antibiotic coverage as well for possible superimposed bacterial pneumonia * follow respiratory status closely (4) Hypertension: Code(s): I10 - Essential (primary) hypertension Status: Chronic Assessment and Plan: * better control at this time * just recently added amlodipine * follow trend of hemodynamics (5) Anemia: Code(s): D64.9 - Anemia, unspecified Status: Chronic Assessment and Plan: * due to a combination of CKD and acute illness * s/p dosing with Epogen * follow trend of H/H (6) Diabetes: Code(s): E11.9 - Type 2 diabetes mellitus without complications Status: Chronic Assessment and Plan: * follow accuchecks * on SSI and Lantus Will continue to follow. Subjective Date/time seen: 09/02/21 15:41 Chart reviewed - assuming care from Dr. Paiz; seems to be doing reasonably well; wearing oxygen by nasal cannula at the time of my visit and notes some shortness of breath with exertional activity; no apparent distress noted; no acute issues overnight or earlier this AM. Exam Narrative: General: WD/WN male in NAD Heart: normal S1 and S2; no rub Lungs: decreased at bases Abdomen: soft, nontender, nondistended, positive bowel sounds Extremities: no cyanosis or clubbing; no edema Skin: warm and dry Objective Data Vital Signs Vital Signs: Vital Signs Temp Pulse Resp BP Pulse Ox 09/02/21 12:00 36.2 C L 86 20 160/81 H 94 09/02/21 11:14 90 19 97 09/02/21 09:18 90 09/02/21 08:00 36.2 C L 90 19 169/83 H 97 09/02/21 04:00 36.1 C L 93 18 158/68 H 90 09/02/21 00:00 36.6 C 90 18 140/76 95 09/01/21 20:07 78 09/01/21 20:00 36.4 C 95 18 142/80 H 94 Intake/Output Intake/Output: Intake & Output 08/30/21 08/31/21 09/01/21 09/02/21 23:59 23:59 23:59 23:59 Intake Total 4570 3070 2920 1580 Output Total 400 1475 850 600 Balance 4170 1595 2070 980 Meds/Results Medications: Active Medications Generic Name Dose Route Start Last Admin Trade Name Robbi PRN Reason Stop Dose Admin Acetaminophen 650 mg 08/31/21 15:51 09/02/21 00:49 Acetaminophen 325 Mg Tablet PO 650 mg Q6H PRN Administration Mild Pain (
--- NOTE | 2021-09-02 15:41 | PM.PNNEP ---
Progress Note: A&P Assessment and Plan (1) CHRIS (acute kidney injury): Code(s): N17.9 - Acute kidney failure, unspecified Status: Acute Assessment and Plan: suspect due to volume depletion/dehydration evaluation to date: renal ultrasound unremarkable urine electrolytes are non pre-renal but he was on diuretics at the time improvement in renal function s/p IVFs peak creatinine at 5.0mg/dl follow repeat labs and UOP (2) Chronic kidney disease, stage IV (severe): Code(s): N18.4 - Chronic kidney disease, stage 4 (severe) Status: Chronic Assessment and Plan: baseline creatinine runs ~ 4.0mg/dl due to diabetes and age-related change (based on outpatient evaluation) (3) COVID-19 virus infection: Code(s): U07.1 - COVID-19 Status: Acute Assessment and Plan: supportive therapy complicated by known history of COPD was not hypoxic on admission however, requiring supplemental oxygen on antibiotic coverage as well for possible superimposed bacterial pneumonia follow respiratory status closely (4) Hypertension: Code(s): I10 - Essential (primary) hypertension Status: Chronic Assessment and Plan: better control at this time just recently added amlodipine follow trend of hemodynamics (5) Anemia: Code(s): D64.9 - Anemia, unspecified Status: Chronic Assessment and Plan: due to a combination of CKD and acute illness s/p dosing with Epogen follow trend of H/H (6) Diabetes: Code(s): E11.9 - Type 2 diabetes mellitus without complications Status: Chronic Assessment and Plan: follow accuchecks on SSI and Lantus Will continue to follow. Subjective Date/time seen: 09/02/21 15:41 Chart reviewed - assuming care from Dr. Paiz; seems to be doing reasonably well; wearing oxygen by nasal cannula at the time of my visit and notes some shortness of breath with exertional activity; no apparent distress noted; no acute issues overnight or earlier this AM. Exam Narrative: General: WD/WN male in NAD Heart: normal S1 and S2; no rub Lungs: decreased at bases Abdomen: soft, nontender, nondistended, positive bowel sounds Extremities: no cyanosis or clubbing; no edema Skin: warm and dry Objective Data Vital Signs Vital Signs: Vital Signs Temp Pulse Resp BP Pulse Ox 09/02/21 12:00 36.2 C L 86 20 160/81 H 94 09/02/21 11:14 90 19 97 09/02/21 09:18 90 09/02/21 08:00 36.2 C L 90 19 169/83 H 97 09/02/21 04:00 36.1 C L 93 18 158/68 H 90 09/02/21 00:00 36.6 C 90 18 140/76 95 09/01/21 20:07 78 09/01/21 20:00 36.4 C 95 18 142/80 H 94 Intake/Output Intake/Output: Intake & Output 08/30/21 08/31/21 09/01/21 09/02/21 23:59 23:59 23:59 23:59 Intake Total 4570 3070 2920 1580 Output Total 400 1475 850 600 Balance 4170 1595 2070 980 Meds/Results Medications: Active Medications Generic Name Dose Route Start Last Admin Trade Name Freq PRN Reason Stop Dose Admin Acetaminophen 650 mg 08/31/21 15:51 09/02/21 00:49 Acetaminophen 325 Mg Tablet PO 650 mg Q6H PRN Administration Mild Pain (1-3) or Fever Albuterol 2.5 mg 08/30/21 00:32 Albuterol Sulfate Neb 2.5 Mg/3 Ml Inh INHALATION Q6H PRN shortness of breath or wheezing Albuterol 1 puff 08/30/21 00:32 Albuterol Sulfate (*Sp) Aerosol 1 Puff INHALATION Q4H PRN Cough Allopurinol 100 mg 08/30/21 08:00 09/02/21 16:44 Allopurinol 100 Mg Tablet PO 100 mg BIDWM MADIE Administration Amlodipine Besylate 5 mg 08/31/21 10:25 09/02/21 09:17 Amlodipine Besylate 5 Mg Tablet PO 5 mg QAM MADIE Administration Aspirin 81 mg 08/30/21 09:00 09/02/21 09:16 Aspirin 81 Mg Enteric Tablet PO 81 mg DAILY [facility] Administration Atorvastatin Calcium 80 mg 08/30/21 09:00 09/02/21 09:17 Atorvastatin 40 Mg Tablet PO 80 mg DAILY [facility]
[2021-09-02 16:21] LABS: Glucose Point of Care 239 mg/dl (65-105)
[2021-09-02 20:33] LABS: Glucose Point of Care 310 mg/dl (65-105)
[2021-09-02] MEDS: cefTRIAXone 2 GM in SODIUM CHLORIDE 0.9% IV 100 ML 200 ML IVPB (21:03)
[2021-09-03] VITALS (15 sets, daily range): BP systolic 102–165; BP diastolic 60–89; PULSE 78–105; RESP 18–20; TEMP 35.9–36.7; O2SAT 92–99
[2021-09-03 06:26] LABS: Basophils Percent Auto 0.1 % (0.2-1.2); Hematocrit 24.2 % (42.0-52.0); Hemoglobin 7.9 g/dL (14.0-18.0); Immature Granulocyte Absolute 0.07 K/mm3 (0.00-0.031); Immature Granulocyte Percent A 0.7 % (0-0.5); Lymphocytes Absolute Auto 0.93 K/mm3 (0.9-3.2); Lymphocytes Percent Auto 9.1 % (18.3-44.2); Mean Corpuscular HGB Conc 32.6 g/dl (32-36); Mean Corpuscular Hemoglobin 31.3 pg (26-34); Mean Platelet Volume 10.9 fl (7.4-10.4); Monocytes Absolute Auto 0.8 K/mm3 (0.1-0.6); Monocytes Percent Auto 7.3 % (2.6-8.5); Neutrophils Absolute Auto 8.5 K/mm3 (1.3-6.7); Neutrophils Percent Auto 82.8 % (45.5-73.1); Platelet Count Result 256 k/mm3 (150-375); Red Blood Count 2.52 M/mm3 (4.6-6.20); White Blood Count 10.2 K/mm3 (4.5-10.0)
[2021-09-03 06:38] LABS: CRP 1.2 mg/dL (<1.0)
[2021-09-03 07:51] LABS: Glucose Point of Care 255 mg/dl (65-105)
[2021-09-03] MEDS: CLOPIDOGREL BISULFATE 75 MG TABLET PO (08:33)
[2021-09-03] MEDS: predniSONE 20 MG TABLET 40 MG PO (08:33)
[2021-09-03] MEDS: guaiFENesin 12 HR 600 MG TABCR PO ×2 (08:33→21:04)
[2021-09-03] MEDS: OMEGA 3 POLYUNSAT FATTY ACIDS 1 GM CAP 2 GM PO (08:33)
[2021-09-03] MEDS: CALCIUM ACETATE 667 MG TABLET PO (08:34)
[2021-09-03] MEDS: BENZONATATE 100 MG CAPSULE 200 MG PO ×3 (08:34→17:02)
[2021-09-03] MEDS: ASPIRIN 81 MG ENTERIC TABLET PO (08:34)
[2021-09-03] MEDS: ATORVASTATIN 40 MG TABLET 80 MG PO (08:34)
[2021-09-03] MEDS: MULTIVITAMINS THERAPEUTIC TAB (*BKC) 1 TABLET PO (08:34)
[2021-09-03] MEDS: amLODIPine BESYLATE 5 MG TABLET PO (08:35)
[2021-09-03] MEDS: LOSARTAN POTASSIUM 50 MG TABLET PO (08:35)
[2021-09-03] MEDS: TAMSULOSIN HCL 0.4 MG CAPSULE PO (08:35)
[2021-09-03] MEDS: allopurinoL 100 MG TABLET PO ×2 (08:35→17:02)
[2021-09-03] MEDS: carvediloL 12.5 MG TABLET PO ×2 (08:35→21:03)
[2021-09-03] MEDS: VITAMIN E 1,000 UNIT CAPSULE 1000 UNIT PO (08:35)
[2021-09-03] MEDS: EZETIMIBE 10 MG TABLET PO (08:36)
[2021-09-03] MEDS: CHOLECALCIFEROL 1,000 UNITS TABLET 5000 UNITS PO ×2 (08:36→17:02)
[2021-09-03] MEDS: INSULIN ASPART (*BKC) 100 UNITS/ML SUB-Q ×3 (08:37→22:09)
[2021-09-03] MEDS: INSULIN GLARGINE (*BKC) 100 UNITS/ML 72 UNITS SUB-Q (08:37)
[2021-09-03] MEDS: FLUTICASONE/UMECLIDIN/VILANTER 100-62.5-25 MCG ELLIPTA 1 PUFF INHALATION (09:02)
--- NOTE | 2021-09-03 11:04 | PM.IMPN ---
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 vs. transplanted heart: [place] heart Associated angina: without angina Qualified Code(s): I25.10 - Atherosclerotic heart disease of [place] coronary artery without angina pectoris Code(s): I25.10 - Atherosclerotic heart disease of [place] coronary artery without angina pectoris Status: Acute Assessment and Plan: Chest pain-free continue home meds Continue to monitor (4) Type 2 diabetes mellitus with hyperglycemia, with long-term current use of insulin: Code(s): E11.65 - Type 2 diabetes mellitus with hyperglycemia; Z79.4 - technician terminal and repeater (current) use of insulin Status: Acute Assessment and Plan: Accu-Cheks AC and HS Continue home meds (5) Acute kidney injury superimposed on CKD: Code(s): N17.9 - Acute kidney failure, unspecified; N18.9 - Chronic kidney disease, unspecified Status: Acute Assessment and Plan: Likely to be pre renal azotemia Will hold Lasix nephrology consulted s/p iv fluid (6) Hypertension: Code(s): I10 - Essential (primary) hypertension Status: Acute Assessment and Plan: Continue to monitor (7) Diastolic congestive heart failure: Code(s): I50.30 - Unspecified diastolic (congestive) heart failure Status: Inactive Assessment and Plan: Patient appears to be rather dry Continue to monitor daily intake and output (8) Multilobar lung infiltrate: Code(s): R91.8 - Other nonspecific abnormal finding of lung field Status: Acute Assessment and Plan: Blood cultures in progress Started on Rocephin and Zithromax Patient failed outpatient therapy with Solu-Medrol and Z pack Subjective Date/time seen: 09/03/21 11:04 Interval history: patient with COVID-19 pneumonia and acute on top of chronic renal failure patient received 1st and 2nd shot of COVID 19 vaccine but has not received not received, at rest patient is not requiring any oxygen with any exertion patient gets short winded, will start the patient on low-dose dexamethasone, unable to start remdesivir as patient's GFR is 17, patient also had states for chronic kidney disease creatinine was 3.6 in March of 2021 he presented with a creatinine of 5 patient is seen by Nephrology patient may have dehydration patient is being gently hydrate will continue to monitor kidney function, chest x-ray suspicious of pneumonia showing bilateral opacities patient being treated with Rocephin and azithromycin nephrology consult patient treated with IV hydration steroid IV antibiotic Patient feels better today shortness of breath improved Patient denies fever headache chest pain I am seeing the patient for shortness of breath. Exam Narrative: Patient is comfortable, NAD HEENT: eyes are clear and none icteric LUNGS: normal respiratory efforts ABD: distended Lower extremities: no edema SKIN: nonjaundiced Neuro: grossly intact. Objective Data Vital Signs Vital Signs: Vital Signs - 24 hr 09/02/21 11:14 09/02/21 12:00 09/02/21 16:00 Temperature 97.2 F L 96.7 F L Pulse Rate 90 86 86 Respiratory Rate 19 20 19 Blood Pressure 160/81 H 155/78 H Pulse Oximetry 97 94 99 09/02/21 20:00 09/02/21 21:02 09/03/21 00:00 Temperature 97.3 F L 97.6 F Pulse Rat
--- NOTE | 2021-09-03 11:29 | P.PNNP_ITS ---
Progress Note: A&P Assessment and Plan (1) CHRIS (acute kidney injury): Code(s): N17.9 - Acute kidney failure, unspecified Status: Acute Assessment and Plan: * suspect due to volume depletion/dehydration * evaluation to date: * renal ultrasound unremarkable * urine electrolytes are non pre-renal but he was on diuretics at the time * improvement in renal function s/p IVFs * peak creatinine at 5.0mg/dl * follow repeat labs and UOP (2) Chronic kidney disease, stage IV (severe): Code(s): N18.4 - Chronic kidney disease, stage 4 (severe) Status: Chronic Assessment and Plan: * baseline creatinine runs ~ 4.0mg/dl * due to diabetes and age-related change (based on outpatient evaluation) (3) COVID-19 virus infection: Code(s): U07.1 - COVID-19 Status: Acute Assessment and Plan: * supportive therapy * complicated by known history of COPD * on intermittent supplemental oxygen * on antibiotic coverage as well for possible superimposed bacterial pneumonia * follow respiratory status closely (4) Hypertension: Code(s): I10 - Essential (primary) hypertension Status: Chronic Assessment and Plan: * better control at this time * just recently added amlodipine * follow trend of hemodynamics (5) Anemia: Code(s): D64.9 - Anemia, unspecified Status: Chronic Assessment and Plan: * due to a combination of CKD and acute illness * s/p dosing with Epogen * follow trend of H/H (6) Diabetes: Code(s): E11.9 - Type 2 diabetes mellitus without complications Status: Chronic Assessment and Plan: * follow accuchecks * on SSI and Lantus Will continue to follow. Subjective Date/time seen: 09/03/21 11:29 Breathing/respiratory status seems stable if not better since I last saw him (on room air); no apparent distress voiced at the time of my visit; no other acute issues/events overnight or earlier this AM; renal function remains relatively stable. Exam Narrative: General: WD/WN male in NAD Heart: normal S1 and S2; no rub Lungs: decreased at bases Abdomen: soft, nontender, nondistended, positive bowel sounds Extremities: no cyanosis or clubbing; no edema Skin: warm and intact Objective Data Vital Signs Vital Signs: Vital Signs Temp Pulse Resp BP Pulse Ox 09/03/21 09:02 93 09/03/21 08:35 92 09/03/21 08:09 36.3 C L 93 20 140/81 93 09/03/21 04:00 36.1 C L 93 20 165/89 H 98 09/03/21 02:37 97 09/03/21 00:00 36.4 C 94 20 160/84 H 99 09/02/21 21:02 80 09/02/21 20:00 36.3 C L 96 20 166/89 H 98 09/02/21 16:00 35.9 C L 86 19 155/78 H 99 09/02/21 12:00 36.2 C L 86 20 160/81 H 94 Intake/Output Intake/Output: Intake & Output 08/31/21 09/01/21 09/02/21 09/03/21 23:59 23:59 23:59 23:59 Intake Total 3070 2920 3320 490 Output Total 1475 850 600 600 Balance 1595 2070 2720 -110 Meds/Results Medications: Active Medications Generic Name Dose Route Start Last Admin Trade Name Robbi PRN Reason Stop Dose Admin Acetaminophen 650 mg 08/31/21 15:51 09/02/21 00:49 Acetaminophen 325 Mg Tablet PO 650 mg Q6H PRN Administratio
--- NOTE | 2021-09-03 11:29 | PM.PNNEP ---
Progress Note: A&P Assessment and Plan (1) CHRIS (acute kidney injury): Code(s): N17.9 - Acute kidney failure, unspecified Status: Acute Assessment and Plan: suspect due to volume depletion/dehydration evaluation to date: renal ultrasound unremarkable urine electrolytes are non pre-renal but he was on diuretics at the time improvement in renal function s/p IVFs peak creatinine at 5.0mg/dl follow repeat labs and UOP (2) Chronic kidney disease, stage IV (severe): Code(s): N18.4 - Chronic kidney disease, stage 4 (severe) Status: Chronic Assessment and Plan: baseline creatinine runs ~ 4.0mg/dl due to diabetes and age-related change (based on outpatient evaluation) (3) COVID-19 virus infection: Code(s): U07.1 - COVID-19 Status: Acute Assessment and Plan: supportive therapy complicated by known history of COPD on intermittent supplemental oxygen on antibiotic coverage as well for possible superimposed bacterial pneumonia follow respiratory status closely (4) Hypertension: Code(s): I10 - Essential (primary) hypertension Status: Chronic Assessment and Plan: better control at this time just recently added amlodipine follow trend of hemodynamics (5) Anemia: Code(s): D64.9 - Anemia, unspecified Status: Chronic Assessment and Plan: due to a combination of CKD and acute illness s/p dosing with Epogen follow trend of H/H (6) Diabetes: Code(s): E11.9 - Type 2 diabetes mellitus without complications Status: Chronic Assessment and Plan: follow accuchecks on SSI and Lantus Will continue to follow. Subjective Date/time seen: 09/03/21 11:29 Breathing/respiratory status seems stable if not better since I last saw him (on room air); no apparent distress voiced at the time of my visit; no other acute issues/events overnight or earlier this AM; renal function remains relatively stable. Exam Narrative: General: WD/WN male in NAD Heart: normal S1 and S2; no rub Lungs: decreased at bases Abdomen: soft, nontender, nondistended, positive bowel sounds Extremities: no cyanosis or clubbing; no edema Skin: warm and intact Objective Data Vital Signs Vital Signs: Vital Signs Temp Pulse Resp BP Pulse Ox 09/03/21 09:02 93 09/03/21 08:35 92 09/03/21 08:09 36.3 C L 93 20 140/81 93 09/03/21 04:00 36.1 C L 93 20 165/89 H 98 09/03/21 02:37 97 09/03/21 00:00 36.4 C 94 20 160/84 H 99 09/02/21 21:02 80 09/02/21 20:00 36.3 C L 96 20 166/89 H 98 09/02/21 16:00 35.9 C L 86 19 155/78 H 99 09/02/21 12:00 36.2 C L 86 20 160/81 H 94 Intake/Output Intake/Output: Intake & Output 08/31/21 09/01/21 09/02/21 09/03/21 23:59 23:59 23:59 23:59 Intake Total 3070 2920 3320 490 Output Total 1475 850 600 600 Balance 1595 2070 2720 -110 Meds/Results Medications: Active Medications Generic Name Dose Route Start Last Admin Trade Name Freq PRN Reason Stop Dose Admin Acetaminophen 650 mg 08/31/21 15:51 09/02/21 00:49 Acetaminophen 325 Mg Tablet PO 650 mg Q6H PRN Administration Mild Pain (1-3) or Fever Albuterol 2.5 mg 08/30/21 00:32 Albuterol Sulfate Neb 2.5 Mg/3 Ml Inh INHALATION Q6H PRN shortness of breath or wheezing Albuterol 1 puff 08/30/21 00:32 Albuterol Sulfate (*Sp) Aerosol 1 Puff INHALATION Q4H PRN Cough Allopurinol 100 mg 08/30/21 08:00 09/03/21 08:35 Allopurinol 100 Mg Tablet PO 100 mg BIDWM MADIE Administration Amlodipine Besylate 5 mg 08/31/21 10:25 09/03/21 08:35 Amlodipine Besylate 5 Mg Tablet PO 5 mg QAM MADIE Administration Aspirin 81 mg 08/30/21 09:00 09/03/21 08:34 Aspirin 81 Mg Enteric Tablet PO 81 mg DAILY MADIE Administration Atorvastatin Calcium 80 mg 08/30/21 09:00 09/03/21 08:34 Atorvastatin 40 Mg Tablet PO 80 mg DA
[2021-09-03 11:42] LABS: Glucose Point of Care 187 mg/dl (65-105)
[2021-09-03 12:31] LABS: Alanine Aminotransferase 37 U/L (4-50); Alkaline Phosphatase 96 U/L (38-126); Anion Gap 8 mmol/L (8-16); Aspartate Amino Transferase 52 U/L (17-59); Bilirubin,Total 0.3 mg/dL (0.2-1.3); Blood Urea Nitrogen 65 mg/dL (9-20); Calcium 8.2 mg/dL (8.4-10.2); Carbon Dioxide 21 mmol/L (22-30); Chloride 107 mmol/L (98-107); Estimated CRCL calculation 19 ml/min; Estimated Glomerular Filt Rate 14; Glucose 176 mg/dL (65-110); Potassium 4.2 mmol/L (3.4-5.0); Sodium 136 mmol/L (137-145)
[2021-09-03] MEDS: HEPARIN SODIUM 5,000 UNITS/ML VIAL 5000 UNITS SUB-Q ×2 (13:09→21:04)
[2021-09-03 16:25] LABS: Glucose Point of Care 230 mg/dl (65-105)
[2021-09-03 20:28] LABS: Glucose Point of Care 340 mg/dl (65-105)
[2021-09-03] MEDS: cefTRIAXone 2 GM in SODIUM CHLORIDE 0.9% IV 100 ML 200 ML IVPB (21:04)
[2021-09-04] VITALS (10 sets, daily range): BP systolic 108–161; BP diastolic 62–79; PULSE 87–108; RESP 16–20; TEMP 36.1–36.6; O2SAT 86–94
[2021-09-04] MEDS: HEPARIN SODIUM 5,000 UNITS/ML VIAL 5000 UNITS SUB-Q (06:02)
[2021-09-04 08:26] LABS: Glucose Point of Care 167 mg/dl (65-105)
[2021-09-04] MEDS: FLUTICASONE/UMECLIDIN/VILANTER 100-62.5-25 MCG ELLIPTA 1 PUFF INHALATION (08:28)
[2021-09-04] MEDS: INSULIN GLARGINE (*BKC) 100 UNITS/ML 72 UNITS SUB-Q (10:08)
[2021-09-04] MEDS: VITAMIN E 1,000 UNIT CAPSULE 1000 UNIT PO (10:09)
[2021-09-04] MEDS: CHOLECALCIFEROL 1,000 UNITS TABLET 5000 UNITS PO (10:10)
[2021-09-04] MEDS: guaiFENesin 12 HR 600 MG TABCR PO (10:10)
[2021-09-04] MEDS: CLOPIDOGREL BISULFATE 75 MG TABLET PO (10:10)
[2021-09-04] MEDS: OMEGA 3 POLYUNSAT FATTY ACIDS 1 GM CAP 2 GM PO (10:10)
[2021-09-04] MEDS: MULTIVITAMINS THERAPEUTIC TAB (*BKC) 1 TABLET PO (10:10)
[2021-09-04] MEDS: EZETIMIBE 10 MG TABLET PO (10:10)
[2021-09-04] MEDS: TAMSULOSIN HCL 0.4 MG CAPSULE PO (10:10)
[2021-09-04] MEDS: carvediloL 12.5 MG TABLET PO (10:11)
[2021-09-04] MEDS: allopurinoL 100 MG TABLET PO (10:13)
[2021-09-04] MEDS: predniSONE 20 MG TABLET 40 MG PO (10:13)
[2021-09-04] MEDS: CALCIUM ACETATE 667 MG TABLET PO (10:13)
[2021-09-04] MEDS: BENZONATATE 100 MG CAPSULE 200 MG PO ×2 (10:13→12:26)
[2021-09-04] MEDS: ASPIRIN 81 MG ENTERIC TABLET PO (10:13)
[2021-09-04] MEDS: amLODIPine BESYLATE 5 MG TABLET PO (10:13)
[2021-09-04] MEDS: LOSARTAN POTASSIUM 50 MG TABLET PO (10:14)
[2021-09-04] MEDS: ATORVASTATIN 40 MG TABLET 80 MG PO (10:14)
[2021-09-04 10:34] LABS: Basophils Percent Auto 0.3 % (0.2-1.2); Hematocrit 23.7 % (42.0-52.0); Hemoglobin 7.7 g/dL (14.0-18.0); Immature Granulocyte Absolute 0.06 K/mm3 (0.00-0.031); Immature Granulocyte Percent A 0.6 % (0-0.5); Lymphocytes Absolute Auto 1.18 K/mm3 (0.9-3.2); Lymphocytes Percent Auto 11.1 % (18.3-44.2); Mean Corpuscular HGB Conc 32.5 g/dl (32-36); Mean Corpuscular Hemoglobin 31.8 pg (26-34); Mean Corpuscular Volume 97.9 fl (80-100); Mean Platelet Volume 10.4 fl (7.4-10.4); Monocytes Absolute Auto 0.8 K/mm3 (0.1-0.6); Monocytes Percent Auto 7.5 % (2.6-8.5); Neutrophils Absolute Auto 8.6 K/mm3 (1.3-6.7); Neutrophils Percent Auto 80.5 % (45.5-73.1); Platelet Count Result 255 k/mm3 (150-375); Red Blood Count 2.42 M/mm3 (4.6-6.20); Red Cell Distribution Width 15.5 % (11.5-14.5); White Blood Count 10.6 K/mm3 (4.5-10.0)
[2021-09-04 10:47] LABS: Alanine Aminotransferase 38 U/L (4-50); Albumin Level 2.8 g/dL (3.5-5.1); Alkaline Phosphatase 81 U/L (38-126); Anion Gap 5 mmol/L (8-16); Aspartate Amino Transferase 50 U/L (17-59); Bilirubin,Total 0.3 mg/dL (0.2-1.3); Blood Urea Nitrogen 67 mg/dL (9-20); Carbon Dioxide 22 mmol/L (22-30); Chloride 112 mmol/L (98-107); Estimated CRCL calculation 20 ml/min; Estimated Glomerular Filt Rate 15; Glucose 142 mg/dL (65-110); Potassium 4.1 mmol/L (3.4-5.0); Sodium 139 mmol/L (137-145)
[2021-09-04 11:47] LABS: Glucose Point of Care 131 mg/dl (65-105)
--- NOTE | 2021-09-04 12:41 | PM.PNNEP ---
Progress Note: A&P Assessment and Plan (1) CHRIS (acute kidney injury): Code(s): N17.9 - Acute kidney failure, unspecified Status: Acute Assessment and Plan: suspect due to volume depletion/dehydration evaluation to date: renal ultrasound unremarkable urine electrolytes are non pre-renal but he was on diuretics at the time improvement in renal function s/p IVFs peak creatinine at 5.0mg/dl follow repeat labs and UOP (2) Chronic kidney disease, stage IV (severe): Code(s): N18.4 - Chronic kidney disease, stage 4 (severe) Status: Chronic Assessment and Plan: baseline creatinine runs ~ 4.0mg/dl due to diabetes and age-related change (based on outpatient evaluation) (3) COVID-19 virus infection: Code(s): U07.1 - COVID-19 Status: Acute Assessment and Plan: supportive therapy complicated by known history of COPD on intermittent supplemental oxygen on antibiotic coverage as well for possible superimposed bacterial pneumonia follow respiratory status closely (4) Hypertension: Code(s): I10 - Essential (primary) hypertension Status: Chronic Assessment and Plan: better control at this time just recently added amlodipine follow trend of hemodynamics (5) Anemia: Code(s): D64.9 - Anemia, unspecified Status: Chronic Assessment and Plan: due to a combination of CKD and acute illness s/p dosing with Epogen may need referral to Hem/Onc for outpatient Epogen/Aranesp follow trend of H/H (6) Diabetes: Code(s): E11.9 - Type 2 diabetes mellitus without complications Status: Chronic Assessment and Plan: follow accuchecks on SSI and Lantus Will continue to follow. Subjective Date/time seen: 09/04/21 12:41 Respiratory/breathing status as well as renal function remains stable in not improved; no other acute complaints to report; worried about his since he is the primary caregiver. Exam Narrative: General: WD/WN male in NAD Heart: normal S1 and S2; no rub Lungs: decreased at bases Abdomen: soft, nontender, nondistended, positive bowel sounds Extremities: no cyanosis or clubbing; no edema Skin: no rash or nodules Objective Data Vital Signs Vital Signs: Vital Signs Temp Pulse Resp BP Pulse Ox 09/04/21 12:30 88 90 09/04/21 11:00 36.3 C L 89 16 158/79 H 94 09/04/21 10:11 87 09/04/21 09:30 94 09/04/21 07:00 36.1 C L 88 18 161/77 H 92 09/04/21 03:00 36.6 C 108 H 20 108/62 92 09/03/21 23:00 36.7 C 105 H 20 102/60 92 09/03/21 21:20 36.5 C 101 H 18 161/80 H 95 09/03/21 21:11 95 09/03/21 21:03 101 H 09/03/21 19:00 36.5 C 101 H 18 161/80 H 95 Intake/Output Intake/Output: Intake & Output 09/01/21 09/02/21 09/03/21 09/04/21 23:59 23:59 23:59 23:59 Intake Total 2920 4670 1820 940 Output Total 850 600 600 550 Balance 2070 4070 1220 390 Meds/Results Medications: Active Medications Generic Name Dose Route Start Last Admin Trade Name Freq PRN Reason Stop Dose Admin Acetaminophen 650 mg 08/31/21 15:51 09/02/21 00:49 Acetaminophen 325 Mg Tablet PO 650 mg Q6H PRN Administration Mild Pain (1-3) or Fever Albuterol 2.5 mg 08/30/21 00:32 Albuterol Sulfate Neb 2.5 Mg/3 Ml Inh INHALATION Q6H PRN shortness of breath or wheezing Albuterol 1 puff 08/30/21 00:32 Albuterol Sulfate (*Sp) Aerosol 1 Puff INHALATION Q4H PRN Cough Allopurinol 100 mg 08/30/21 08:00 09/04/21 10:13 Allopurinol 100 Mg Tablet PO 100 mg BIDWM MADIE Administration Amlodipine Besylate 5 mg 08/31/21 10:25 09/04/21 10:13 Amlodipine Besylate 5 Mg Tablet PO 5 mg QAM MADIE Administration Aspirin 81 mg 08/30/21 09:00 09/04/21 10:13 Aspirin 81 Mg Enteric Tablet PO 81 mg DAILY MADIE Administration Atorvastatin Calcium 80 mg 08/30/21 09:00 09/04/21 10:14 Atorvastatin
--- NOTE | 2021-09-04 12:41 | P.PNNP_ITS ---
Progress Note: A&P Assessment and Plan (1) CHRIS (acute kidney injury): Code(s): N17.9 - Acute kidney failure, unspecified Status: Acute Assessment and Plan: * suspect due to volume depletion/dehydration * evaluation to date: * renal ultrasound unremarkable * urine electrolytes are non pre-renal but he was on diuretics at the time * improvement in renal function s/p IVFs * peak creatinine at 5.0mg/dl * follow repeat labs and UOP (2) Chronic kidney disease, stage IV (severe): Code(s): N18.4 - Chronic kidney disease, stage 4 (severe) Status: Chronic Assessment and Plan: * baseline creatinine runs ~ 4.0mg/dl * due to diabetes and age-related change (based on outpatient evaluation) (3) COVID-19 virus infection: Code(s): U07.1 - COVID-19 Status: Acute Assessment and Plan: * supportive therapy * complicated by known history of COPD * on intermittent supplemental oxygen * on antibiotic coverage as well for possible superimposed bacterial pneumonia * follow respiratory status closely (4) Hypertension: Code(s): I10 - Essential (primary) hypertension Status: Chronic Assessment and Plan: * better control at this time * just recently added amlodipine * follow trend of hemodynamics (5) Anemia: Code(s): D64.9 - Anemia, unspecified Status: Chronic Assessment and Plan: * due to a combination of CKD and acute illness * s/p dosing with Epogen * may need referral to Hem/Onc for outpatient Epogen/Aranesp * follow trend of H/H (6) Diabetes: Code(s): E11.9 - Type 2 diabetes mellitus without complications Status: Chronic Assessment and Plan: * follow accuchecks * on SSI and Lantus Will continue to follow. Subjective Date/time seen: 09/04/21 12:41 Respiratory/breathing status as well as renal function remains stable in not improved; no other acute complaints to report; worried about his since he is the primary caregiver. Exam 2 Narrative: General: WD/WN male in NAD Heart: normal S1 and S2; no rub Lungs: decreased at bases Abdomen: soft, nontender, nondistended, positive bowel sounds Extremities: no cyanosis or clubbing; no edema Skin: no rash or nodules Objective Data Vital Signs Vital Signs: Vital Signs Temp Pulse Resp BP Pulse Ox 09/04/21 12:30 88 90 09/04/21 11:00 36.3 C L 89 16 158/79 H 94 09/04/21 10:11 87 09/04/21 09:30 94 09/04/21 07:00 36.1 C L 88 18 161/77 H 92 09/04/21 03:00 36.6 C 108 H 20 108/62 92 09/03/21 23:00 36.7 C 105 H 20 102/60 92 09/03/21 21:20 36.5 C 101 H 18 161/80 H 95 09/03/21 21:11 95 09/03/21 21:03 101 H 09/03/21 19:00 36.5 C 101 H 18 161/80 H 95 Intake/Output Intake/Output: Intake & Output 09/01/21 09/02/21 09/03/21 09/04/21 23:59 23:59 23:59 23:59 Intake Total 2920 4670 1820 940 Output Total 850 600 600 550 Balance 2070 4070 1220 390 Meds/Results Medications: Active Medications Generic Name Dose Route Start Last Admin Trade Name Robbi PRN Reason Stop Dose Admin Acetaminophen 650 mg 08/31/21 15:51 09/02/21 00:49 Acetaminophen 325 Mg Tablet PO 65
--- NOTE | 2021-09-04 12:48 | PM.DS ---
DS: Admitting Diagnosis Discharge Date 09/04/2021 Admitting Diagnosis Acute Hypoxic Resp Failure COVID 19 Pneumonia DS: Discharge Diagnosis Discharge Diagnosis (1) Anemia: Code(s): D64.9 - Anemia, unspecified Status: Chronic (2) Chronic kidney disease, stage IV (severe): Code(s): N18.4 - Chronic kidney disease, stage 4 (severe) Status: Chronic (3) COVID-19 virus infection: Code(s): U07.1 - COVID-19 Status: Acute DS: Summary Hospital Course Reason for hospitalization: Acute Hypoxic resp Failure CKD Anemia Hospital Course: 65-year-old male with past medical history significant for dyslipidemia, hypertension, type 2 diabetes mellitus, insulin dependent, benign prostatic hyperplasia, gout. Patient presented to the emergency room due to persistent productive cough for 2+ weeks patient had been to the [facility] where he was given in Z-Arias and Solu Medrol but has not improved. Preliminary workup was significant for chest x-ray with lung infiltrates and a rapid COVID test was positive. Patient has been admitted for further evaluation management and treatment.Was treated with O2 support, abx, dexamethasone. he has H/O CKD and therefore not a candidate for Remdesvir. He was eager to be discharged home as he is the caregiver for his . He seemed to be stable at the moment on 2L. Resp therapist will evaluate for home O2 requirement. Advised to follow up with nephrology for his ongoing CKD. Discharged home in stable condition. Status at Discharge Functional status at discharge: uses cane/walker Overall status at discharge: patient is progressing back to baseline Time Spent with Patient Time attestation: Total time spent providing and/or coordinating discharge services: Time spent: Greater than 30 minutes Exam Const: General: no acute distress Orientation/consciousness: patient oriented x3 Eyes: Pupils: Equal, round and reactive pupils present Neck: Neck: supple Resp: Other: decreased breath sounds B/l, no added sounds Cardio: Rate: regular rate Rhythm: regular rhythm GI: GI Palp: Yes Soft to palpation Extrem: General: edema Psych: Mental Status: mental status grossly normal DS: Data Data Completed and Pending Labs on day of discharge: Labs from last 24 hours 09/04/21 09/04/21 09/04/21 11:06 10:29 10:29 WBC 10.6 H RBC 2.42 L Hgb 7.7 L Hct 23.7 L MCV 97.9 MCH 31.8 MCHC 32.5 RDW 15.5 H Plt Count 255 MPV 10.4 Immature Gran % (Auto) 0.6 H Neut % (Auto) 80.5 H Lymph % (Auto) 11.1 L [place] % (Auto) 7.5 Eos % (Auto) 0.0 Baso % (Auto) 0.3 Lymph # (Auto) 1.18 [place] # (Auto) 0.8 H Eos # (Auto) 0.0 Baso # (Auto) 0.0 Abs Immat Gran (auto) 0.06 H Absolute Neuts (auto) 8.6 H Absolute Nucleated RBC 0.0 Nucleated RBC % 0.0 Sodium 139 Potassium 4.1 Chloride 112 H Carbon Dioxide 22 Anion Gap 5 L BUN 67 H Creatinine 4.00 H Estim Creat Clear Calc 20 Estimated GFR 15 L Glucose 142 H POC Capillary Glucose 131 H Calcium 8.0 L Total Bilirubin 0.3 AST 50 ALT 38 Alkaline Phosphatase 81 Total Protein 6.0 L Albumin 2.8 L 09/04/21 09/03/21 09/03/21 08:11 20:07 16:12 WBC RBC Hgb Hct MCV MCH MCHC RDW Plt Count MPV Immature Gran % (Auto) Neut % (Auto) Lymph % (Auto) [place] % (Auto) Eos % (Auto) Baso % (Auto) Lymph # (Auto) [place] # (Auto) Eos # (Auto) Baso # (Auto) Abs Immat Gran (auto) Absolute Neuts (auto) Absolute Nucleated RBC Nucleated RBC % Sodium Potassium Chloride Carbon Dioxide Anion Gap BUN Creatinine Estim Creat Clear Calc Estimated GFR Glucose POC Capillary Glucose 167 H 340 H 230 H Calcium Total Bilirubin AST ALT Alkaline Phosphatase Total Protein Albumin Discharge Plan Disc
== END 2021-09-04 16:07 | disposition home or self-care (01) | DRG 177 ==
LOC: ANHED 17:44 → ANH3MEDSUR 18:58
PROVIDERS: Emergency Medicine; Internal Medicine; Internal Medicine Nephrology; Admitting Provider Family Medicine; Emergency Provider Emergency Medicine; PCP Internal Medicine; Visit Provider Internal Medicine
DX: U07.1 COVID-19 (principal); J12.82 Pneumonia due to coronavirus disease 2019; N17.9 Acute kidney failure, unspecified; I13.0 Hypertensive heart and chronic kidney disease with heart failure and stage 1 through stage 4 chronic kidney disease, or unspecified chronic kidney disease; N18.4 Chronic kidney disease, stage 4 (severe); I50.32 Chronic diastolic (congestive) heart failure; D63.1 Anemia in chronic kidney disease; E78.5 Hyperlipidemia, unspecified; E86.0 Dehydration; E11.22 Type 2 diabetes mellitus with diabetic chronic kidney disease; I25.10 Atherosclerotic heart disease of native coronary artery without angina pectoris; J43.9 Emphysema, unspecified; E11.65 Type 2 diabetes mellitus with hyperglycemia; M10.9 Gout, unspecified; N25.0 Renal osteodystrophy; N40.0 Benign prostatic hyperplasia without lower urinary tract symptoms; R91.8 Other nonspecific abnormal finding of lung field; Z79.02 Long term (current) use of antithrombotics/antiplatelets; Z79.82 Long term (current) use of aspirin; Z95.5 Presence of coronary angioplasty implant and graft; Z95.0 Presence of cardiac pacemaker; Z79.4 Long term (current) use of insulin; E11.69 Type 2 diabetes mellitus with other specified complication; G90.9 Disorder of the autonomic nervous system, unspecified
CPT/HCPCS: 36415; 36600; 70450; 71045; 71046; 80048; 80053; 80069; 81001; 82550; 82805; 82948; 83735; 83880; 84443; 84484; 85025; 85027; 86140; 87040; 87502; 93005; 94618; 94640; 96361; 96365; 96366; 96367; 96368; 96372; 96375; 96376; 97161; 97165; 99285; A9270; C9803; G0378; J0131; J0360; J0456; J0696; J1644; J1815; J7030; J7512; Q5105; U0003; U0005

== ENCOUNTER 2021-10-01 11:30 | Outpatient (CLI) | payer MEDICARE, SELFPAY ==
--- NOTE | ~2021-10-01 | XR_ITS ---
EXAMINATION: XR chest 2V DATE: 10/01/2021 11:54 INDICATION: COVID-19 pneumonia. Shortness of breath. Lower limb swelling. TECHNIQUE: Frontal and lateral views of the chest were obtained. COMPARISON: Chest single view 09/03/2021, chest CT 01/30/2021 FINDINGS: The lung volumes are small. There is mild atelectasis at the lung bases. No pleural effusio n or pneumothorax. The heart size is normal. There is a left chest wall pacer with leads in the right atrium and right ventricle. IMPRESSION: 1. Small lung volumes with mild atelectasis at the lung bases. Reviewed, dictated and finalized at location B.
== END 2021-10-01 11:31 | disposition home or self-care (01) ==
PROVIDERS: PCP Internal Medicine; Visit Provider Internal Medicine
DX: I50.9 Heart failure, unspecified (principal); R06.02 Shortness of breath; U07.1 COVID-19; J12.82 Pneumonia due to coronavirus disease 2019; R91.8 Other nonspecific abnormal finding of lung field
CPT/HCPCS: 71046

== ENCOUNTER 2021-10-24 21:55 | Observation (INO) | payer MEDICARE, SELFPAY ==
[2021-10-24] VITALS (16 sets, daily range): BP systolic 90–189; BP diastolic 47–82; PULSE 89–96; RESP 14–23; TEMP 37; O2SAT 94–100
--- NOTE | ~2021-10-24 | XR_ITS ---
EXAMINATION: XR ankle RT min 3V INDICATION: Right ankle pain TECHNIQUE: Four views of the right ankle are obtained. COMPARISON: None available FINDINGS: There is a subtle heterotopic ossification projecting distal to the medial malleolus. Bone alignment is normal. There is no osteochondral lesion. There is mild osteoarthritis of the ankle and moderate osteoarthritis of the midfoot. Calcified atherosclerosis is noted. There are posterior and p lantar calcaneal enthesophytes. IMPRESSION: 1. Subtle heterotopic ossification distal to the medial malleolus which could reflect avulsion injury . Reviewed, dictated and finalized at location A. IMPRESSION: 1. Subtle heterotopic ossification distal to the medial malleolus which could r eflect avulsion injury.
--- NOTE | ~2021-10-24 | CT_ITS ---
EXAMINATION: CT lumbar spine wo con DATE: 10/25/2021 00:17 INDICATION: 2 weeks of left and midline lumbar spine pain. TECHNIQUE: Computed tomography (CT) of the lumbar spine was performed without intravenous contrast. A utomated exposure control and iterative reconstruction technique were employed. The dose-length produ ct was 1359.91 mGy-cm. COMPARISON: Lumbar spine radiographs dated 04/15/2005 FINDINGS: Alignment is normal. Unchanged chronic minimal to mild likely physiologic anterior wedging at T10-L1. No fracture. Result likely hypoplastic spinous processes at T10-T12. Moderate disc height loss with vacuum phenome non at T9-T10. Mild disc height loss at T10-T11, T11-T12, L2-L3 and L4-L5. 2.3 cm right renal cyst. 1 mm nonobstructing stone at the lower pole of the right kidney. There is ossification along the supra spinatus ligament. Paravertebral soft tissues are otherwise unremarkable. The following disc levels a re specifically discussed: T9-T10: The disc does not extend beyond the endplate margin. There is mild bilateral facet joint oste oarthritis. There is no neural foraminal stenosis. There is no central canal stenosis. T10-T11: The disc does not extend beyond the endplate margin. There is mild bilateral facet joint ost eoarthritis. There is mild bilateral neural foraminal stenosis. There is no central canal stenosis. T11-T12: Small left subarticular zone with posterior disc osteophyte complex. There is mild right and minimal left facet joint osteoarthritis. There is no neural foraminal stenosis. There is mild centra l canal stenosis. T12-L1: The disc does not extend beyond the endplate margin. There is altered left and minimal right facet joint osteoarthritis. There is no neural foraminal stenosis. There is no central canal stenosis . L1-L2: Disc is mildly bulging. There is mild left and mild to moderate right facet joint osteoarthrit is. There is mild bilateral neural foraminal stenosis. There is minimal central canal stenosis. L2-L3: Disc is mildly bulging. There is mild bilateral facet joint osteoarthritis. There is mild bila teral neural foraminal stenosis. There is mild central canal stenosis. L3-L4: Disc is mildly bulging. There is hypertrophy of the ligamentum flavum. There is mild bilatera l facet joint osteoarthritis. There is mild bilateral neural foraminal stenosis. There is moderate ce ntral canal stenosis. L4-L5: Disc is bulging. There is mild bilateral facet joint osteoarthritis. There is moderate left an d mild to moderate right neural foraminal stenosis. There is moderate central canal stenosis. L5-S1: The disc does not extend beyond the endplate margin. There is mild right and moderate left fac et joint osteoarthritis. There is mild right and minimal left neural foraminal stenosis. There is no central canal stenosis. IMPRESSION: 1. Mild lumbar and moderate lower thoracic spondylosis. Reviewed, dictated and finalized at location A.
--- NOTE | ~2021-10-24 | XR_ITS ---
EXAMINATION: XR knee LT min 4V DATE: 10/25/2021 00:26 INDICATION: Left knee pain TECHNIQUE: Four views of the left knee were obtained. COMPARISON: None. FINDINGS: Alignment is normal. No fracture or osteochondral lesion. There is mild tricompartmental os teoarthritis characterized by tiny marginal osteophytes. Chondrocalcinosis is noted. There is a small joint effusion. Calcified atherosclerosis is noted. IMPRESSION: 1. No acute osseous abnormality. Reviewed, dictated and finalized at location A.
[2021-10-24 22:31] LABS: Glucose Point of Care 189 mg/dl (65-105)
--- NOTE | 2021-10-24 23:41 | ED.BACK ---
HPI - Back Pain/Injury General Chief Complaint: Back Pain/Injury <ORION Watts Last Filed: 10/25/21 04:12> Stated Complaint: low back x 2 weeks <ORION Watts Last Filed: 10/25/21 04:12> Time Seen by Provider: 10/24/21 22:34 <ORION Watts Last Filed: 10/25/21 04:12> Source: patient <ORION Watts Last Filed: 10/25/21 04:12> Mode of arrival: ambulatory <ORION Watts Last Filed: 10/25/21 04:12> Limitations: no limitations <ORION Watts Last Filed: 10/25/21 04:12> History of Present Illness HPI Narrative: Patient is a 66-year-old male who presents to the ED with report of lower back pain, worse on the left side, radiating down his left lower extremity. Patient reports he was putting a walker into the trunk of his car 2 weeks ago when he twisted awkwardly and strained his back. Tonight, he felt a sharp pain in his lower back when he got up off the couch. The pain has been severe since then and caused him to fall in the kitchen because of the pain. He states he landed on his L knee, but did not hit his head or lose consciousness. Patient had an RUE AV fistula placed today for potential future dialysis and was prescribed Oxycontin for this. He took this 2 hours ago prior to arrival but denies any relief of his pain. Patient also mentions he injured his right ankle a few weeks ago. He does report having tingling in his left lower extremity, but denies significant weakness, bowel or bladder incontinence, saddle anesthesia or other numbness. <ORION Watts Last Filed: 10/25/21 04:12> Related Data Home Medications: Home Medications Medication Instructions Recorded Confirmed albuterol sulfate 90 mcg/actuation 1 puff INHALATION Q4H PRN 05/09/19 10/11/21 aerosol inhaler allopurinol 100 mg tablet 100 mg PO BID 05/09/19 10/11/21 aspirin 81 mg tablet,delayed 81 mg PO DAILY 05/09/19 10/11/21 release ezetimibe 10 mg tablet 10 mg PO DAILY 05/09/19 10/11/21 cholecalciferol (vitamin D3) 125 5,000 unit PO BID cap 02/07/20 10/11/21 mcg (5,000 unit) capsule carvedilol 25 mg tablet 12.5 mg PO Q12H tablet 02/11/21 10/11/21 calcium acetate(phosphat bind) 667 mg PO DAILY 08/15/21 10/11/21 tamsulosin 0.4 mg PO DAILY 08/15/21 10/11/21 multivitamin 1 tablet PO DAILY 08/21/21 10/11/21 insulin aspart U-100 [Novolog 8 unit SUB-Q TID PRN 08/29/21 10/11/21 Flexpen U-100 Insulin] omega-3 fatty acids-vitamin E 2,000 cap DAILY 08/29/21 10/11/21 metolazone 2.5 mg tablet 2.5 mg PO DAILY 10/01/21 10/11/21 <Aleena Souza PA-C - Last Filed: 10/25/21 04:12> Allergies/Adverse Reactions: Allergies Allergy/AdvReac Type Severity Reaction Status Date / Time enalapril Allergy Unknown COUGH Verified 10/25/21 04:21 Iodinated Contrast Media Allergy Unknown Hives Verified 10/25/21 04:21 Contrast Media Allergy Unknown RASH Uncoded 10/25/21 04:21 <ORION Watts Last Filed: 10/25/21 04:12> Review of Systems Review of Systems: CONSTITUTIONAL: Denies fever. CARDIOVASCULAR: Denies chest pain, palpitations, or edema. RESPIRATORY: Denies cough or dyspnea. GASTROINTESTINAL: Denies nausea, vomiting, incontinence, or diarrhea. GENITOURINARY: Denies incontinence. MUSCULOSKELETAL: Reports left lower back pain radiating down left lower extremity, L knee pain, R ankle pain. NEUROLOGIC: Reports tingling in left lower extremity. Denies headache, head injury, loss of consciousness, numbness, or weakness. PSYCHIATRIC: Denies anxiety or depression. <ORION Watts Last Filed: 10/25/21 04:12> All systems reviewed & are unremarkable except as noted in HPI and below <Aleena Souza PA-C - Last Filed: 10/25/21 04:12> [facility] Past Medical History Medical History: Medical History Benign prostatic hyperplasia Chronic anemia Chronic kidney disease, stage 4 (severe) Chronic obstructive pu
[2021-10-25] VITALS (34 sets, daily range): BP systolic 111–196; BP diastolic 63–97; PULSE 93–97; RESP 13–26; TEMP 36.2–36.8; O2SAT 93–100; BMI 25.2
--- NOTE | 2021-10-25 | PC.NURSE ---
pt. to XR
[2021-10-25] MEDS: MORPHINE SULFATE (*CRX) 2 MG/ML INJ IV PUSH ×2 (00:03→04:19)
[2021-10-25] MEDS: ONDANSETRON INJ 4 MG/2 ML VIAL IV PUSH (00:03)
[2021-10-25 03:25] LABS: Basophils Percent Auto 0.3 % (0.2-1.2); Hematocrit 28.1 % (42.0-52.0); Hemoglobin 8.8 g/dL (14.0-18.0); Immature Granulocyte Absolute 0.02 K/mm3 (0.00-0.031); Immature Granulocyte Percent A 0.2 % (0-0.5); Lymphocytes Absolute Auto 1.09 K/mm3 (0.9-3.2); Lymphocytes Percent Auto 10.6 % (18.3-44.2); Mean Corpuscular HGB Conc 31.3 g/dl (32-36); Mean Corpuscular Hemoglobin 31.1 pg (26-34); Mean Corpuscular Volume 99.3 fl (80-100); Mean Platelet Volume 10.5 fl (7.4-10.4); Monocytes Absolute Auto 0.5 K/mm3 (0.1-0.6); Monocytes Percent Auto 4.9 % (2.6-8.5); Neutrophils Absolute Auto 8.6 K/mm3 (1.3-6.7); Platelet Count Result 216 k/mm3 (150-375); Red Blood Count 2.83 M/mm3 (4.6-6.20); Red Cell Distribution Width 15.2 % (11.5-14.5); White Blood Count 10.3 K/mm3 (4.5-10.0)
[2021-10-25 03:30] LABS: RBC Urine 0-2 /hpf (0-2); Squamous Epithelial Cell Urine Rare /hpf (Few); WBC Urine 0-3 /hpf
[2021-10-25 03:31] LABS: Add Urine Microscopic? YES; Appearance Urine Clear (Clear); Bilirubin Urine Negative (Negative); Blood Urine Negative (Negative); Color Urine Yellow (Yellow); Glucose Urine UA Trace mg/dL (Negative); Ketones Urine Negative (Negative); Leukocyte Esterase Ur Negative LEU/UL (Negative); Nitrate Urine Negative (Negative); Protein Urine 3+ mg/dL (Negative); Urobilinogen Urine 0.2 mg/dL (<2.0); pH Urine 5.5 (5.0-9.0)
[2021-10-25 03:34] LABS: Alanine Aminotransferase 18 U/L (6-50); Albumin Level 3.9 g/dL (3.5-5.1); Alkaline Phosphatase 105 U/L (38-126); Anion Gap 12 mmol/L (8-16); Aspartate Amino Transferase 37 U/L (17-59); Bilirubin,Total 0.4 mg/dL (0.2-1.3); Blood Urea Nitrogen 77 mg/dL (9-20); Calcium 8.4 mg/dL (8.4-10.2); Carbon Dioxide 26 mmol/L (22-30); Chloride 101 mmol/L (98-107); Estimated CRCL calculation 14 ml/min; Estimated Glomerular Filt Rate 10; Glucose 203 mg/dL (65-110); Potassium 4.5 mmol/L (3.4-5.0); Sodium 139 mmol/L (137-145)
[2021-10-25 04:04] LABS: SARS-CoV-2 RNA PCR Negative
--- NOTE | 2021-10-25 06:22 | ADMGEN ---
This patient, Freddie Valero, was admitted to [facility] Surg Room 322-. Patient/family oriented to hospital policies and general routines including ID bracelet, bed and alarms, visiting hours, pain management, procedures, bathroom and other care routines, personal items, smoking policy, room service/diet, and visiting hours. Information on how to activate the Rapid Response Team has been discussed. Patient/Family are encouraged to report perceived risks to care and to ask questions if they do not understand what they are told or what they should do.
[2021-10-25 08:29] LABS: Glucose Point of Care 234 mg/dl (65-105)
[2021-10-25] MEDS: oxyCODONE HCL (*CRX) 5 MG TAB IR PO ×2 (08:47→13:25)
[2021-10-25] MEDS: methocarbamoL 500 MG TABLET PO ×2 (08:48→11:59)
[2021-10-25] MEDS: LIDOCAINE 5% PATCH 1 PATCH TRANSDERM (08:48)
[2021-10-25 11:53] LABS: Glucose Point of Care 304 mg/dl (65-105)
[2021-10-25] MEDS: FUROSEMIDE 40 MG TABLET 80 MG PO (13:25)
[2021-10-25] MEDS: EZETIMIBE 10 MG TABLET PO (13:26)
[2021-10-25] MEDS: metOLazone 2.5 MG TABLET PO (13:26)
[2021-10-25] MEDS: TAMSULOSIN HCL 0.4 MG CAPSULE PO (13:26)
[2021-10-25] MEDS: ASPIRIN 81 MG ENTERIC TABLET PO (13:26)
[2021-10-25] MEDS: CLOPIDOGREL BISULFATE 75 MG TABLET PO (13:26)
[2021-10-25] MEDS: CALCIUM ACETATE 667 MG TABLET PO (13:26)
[2021-10-25] MEDS: ATORVASTATIN 40 MG TABLET 80 MG PO (13:26)
--- NOTE | 2021-10-25 15:47 | PM.SD2 ---
Same Day Admit/Disch: HPI History of Present Illness Chief complaint: L sided sciatica, unable to ambulate Narrative: 66-year-old male with past medical history significant for heart failure, kidney disease, diabetes, hypertension hyperlipidemia presented to the ER with acute on chronic low back pain that radiated down into his left leg. About 2 weeks ago, he appeared to strain his back. He was slowly getting better from this when he tried to get up off the couch tonight and felt a sharp pain. Since this experience, he has had sharp pain on his bilateral lower back radiating down into his left leg. He tried OxyContin at home for this with little relief. He denies any bowel or bladder changes, no saddle anesthesia. No headaches or vision changes. [facility] Past Medical History Medical History Benign prostatic hyperplasia Chronic anemia Chronic kidney disease, stage 4 (severe) Chronic obstructive pulmonary disease Coronary artery disease Catheterization and 2005 showed a chronically occluded RCA. In 2016 he had a drug-eluting stent to the proximal left anterior descending. Diabetes mellitus Diastolic congestive heart failure Echocardiogram on 01/31/2021 showed normal LV systolic function with moderately increased LV wall thickness and grade 1 diastolic dysfunction with an EF estimated 55%. Hyperlipidemia, unspecified Hypertension Orthostasis Related to autonomic dysfunction from his diabetes. Type 2 diabetes mellitus Hemoglobin A1c was 8.4% on 01/08/2021. Surgical History Surgical History History of ankle surgery Left History of eye surgery Laser eye surgery. Status post cardiac pacemaker procedure His 1st pacemaker was placed in his 30s for sinus pause, syncope and bradycardia and he had generator changes in 2002, 2006, and 2011. His RV lead has high thresholds and he was not pacing in also it was turned off. 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 Smoked briefly as a teen. No alcohol or illicit substance abuse. Surrogate decision maker: Tabatha or daughter Lidia. Code status: Full code. Smoking status: Former smoker Additional smoking assessment comments: as a teenager Alcohol intake: never Substance use: never Substance use type: does not use Spiritual care concerns: No Same Day Admit/Disch: Med Pre-admit Medications Home Medications Medication Instructions Recorded Confirmed Type allopurinol 100 mg tablet 100 mg PO BID 05/09/19 10/25/21 History aspirin 81 mg tablet,delayed 81 mg PO DAILY 05/09/19 10/25/21 History release ezetimibe 10 mg tablet 10 mg PO DAILY 05/09/19 10/25/21 History carvedilol 25 mg tablet 12.5 mg PO Q12H tablet 02/11/21 10/25/21 History dulaglutide 1.5 mg/0.5 mL 1.5 mg SUBCUT WEEKLY 90 Days #6.5 05/01/21 10/25/21 Rx subcutaneous pen injector ml insulin degludec 200 unit/mL (3 72 unit SUB-Q DAILY 90 Days #32.4 05/01/21 10/25/21 Rx mL) subcutaneous pen ml atorvastatin 80 mg tablet 80 mg PO DAILY #90 tablet 05/20/21 10/25/21 Rx calcium acetate(phosphat bind) 667 mg PO TID 08/15/21 10/25/21 History tamsulosin 0.4 mg PO DAILY 08/15/21 10/25/21 History clopidogrel 75 mg tablet 75 mg PO DAILY #90 tablet 08/21/21 10/25/21 Rx albuter
== END 2021-10-25 16:25 | disposition home or self-care (01) ==
LOC: ANHED 10-25 03:41 → ANH3MEDSUR 10-25 04:48
PROVIDERS: Physician Assistant; Admitting Provider Internal Medicine; Emergency Provider Emergency Medicine; PCP Internal Medicine; Visit Provider Student in an Organized Health Care Education/Training Program
DX: M54.42 Lumbago with sciatica, left side (principal); I13.0 Hypertensive heart and chronic kidney disease with heart failure and stage 1 through stage 4 chronic kidney disease, or unspecified chronic kidney disease; N18.4 Chronic kidney disease, stage 4 (severe); E11.22 Type 2 diabetes mellitus with diabetic chronic kidney disease; I50.30 Unspecified diastolic (congestive) heart failure; I25.10 Atherosclerotic heart disease of native coronary artery without angina pectoris; E78.5 Hyperlipidemia, unspecified; N40.0 Benign prostatic hyperplasia without lower urinary tract symptoms; Z95.5 Presence of coronary angioplasty implant and graft; Z95.0 Presence of cardiac pacemaker; Z79.4 Long term (current) use of insulin; Z79.82 Long term (current) use of aspirin; Z79.01 Long term (current) use of anticoagulants; Z20.822 Contact with and (suspected) exposure to COVID-19
CPT/HCPCS: 36415; 72131; 73564; 73610; 80053; 81001; 82948; 85025; 96365; 96375; 96376; 97161; 99285; A9270; C9803; G0378; J0131; J2270; J2405; U0003; U0005

== ENCOUNTER 2021-11-13 10:22 | Outpatient (RCR) | payer MEDICARE, SELFPAY ==
[2021-11-13 14:06] VITALS: BMI 25.2
== END 2022-01-27 08:08 | disposition home or self-care (01) ==
LOC: ANHWOC 10:22
PROVIDERS: PCP Internal Medicine; Visit Provider Nurse Practitioner
DX: S91.001A Unspecified open wound, right ankle, initial encounter (principal)
CPT/HCPCS: 99213; A9270; G0463

== ENCOUNTER 2021-11-24 11:34 | Inpatient (IN) | payer MEDICARE, SELFPAY ==
[2021-11-24] VITALS (21 sets, daily range): BP systolic 112–153; BP diastolic 48–69; PULSE 88–99; RESP 16–22; TEMP 36.1–36.8; O2SAT 91–100; BMI 29.9
--- NOTE | ~2021-11-24 | CT_ITS ---
EXAMINATION: CT brain wo con DATE: 11/24/2021 13:31 INDICATION: fall . TECHNIQUE: Computed tomography (CT) of the head was performed without intravenous contrast. The mA wa s adjusted according to patient size. Iterative reconstruction technique was employed. The dose-lengt h product was 605.33 mGy-cm. COMPARISON: None FINDINGS: No acute intracranial hemorrhage or extra-axial fluid collection. No hydrocephalus, mass, or herniation. No acute ischemic infarct. Unremarkable dural venous sinus attenuation. No acute osseous abnormality. Mild mucosal thickening in the anterior ethmoid air cells, otherwise the aerated spaces are clear. Mild atrophy and chronic white matter change. Atherosclerotic intracranial calcifications. Bilateral lens replacements. IMPRESSION: No acute intracranial process. Reviewed, dictated and finalized at location K.
--- NOTE | ~2021-11-24 | XR_ITS ---
XR chest 1V portable 11/24/2021 12:42 Indication: Syncope Procedure: AP portable chest Comparison: Comparison to multiple prior studies sequentially, with oldest reviewed study dated 08/2021. Findings: Bibasilar atelectasis. Possible small effusion. Shallow inspiration with crowding of the pu lmonary vessels. Pacemaker leads are stable. No pneumothorax or edema. Impression: 1: Bibasilar atelectasis. Reviewed, dictated and finalized at location A. Impression: 1: Bibasilar atelectasis.
--- NOTE | ~2021-11-24 | CT_ITS ---
EXAMINATION: CT abdomen pelvis wo con DATE: 11/24/2021 13:31 INDICATION: abd pain TECHNIQUE: Computed tomography (CT) of the abdomen and pelvis was performed without intravenous contr ast. Automated exposure control and iterative reconstruction technique were employed. The dose-length product was 1617.92 mGy-cm. COMPARISON: None FINDINGS: Lower thorax: Incompletely visualized pacer wires. Aortic and coronary artery calcifications. Bilater al gynecomastia. Liver: Granulomatous calcifications. Biliary/Gallbladder: Gallbladder is normal. No bile duct dilation. Pancreas: No mass or duct dilation. Atrophy. Spleen: Granulomatous calcifications. Adrenals:No mass. Kidneys: Punctate, nonobstructive right renal calcifications. Simple right midpole cyst. Left lower p ole hypodensity too small to characterize but also likely represents a cyst. No hydronephrosis. GI tract: No small or large bowel dilation. Normal appendix. Mesentery/Peritoneum: No ascites, mass, or free air. Retroperitoneum: No mass. Atherosclerotic calcifications. Pelvis: Bladder wall thickening likely secondary to outlet compromise from prostatomegaly. Soft Tissues: Approximately 3 cm subdermal thickening in the right lower quadrant. Small fat-containi ng bilateral inguinal hernias. Bones: No acute osseous finding. IMPRESSION: 3 cm dermal thickening in the right lower quadrant may represent a contusion, soft tissue hemangioma, or other dermal lesion. Correlate clinically. Otherwise no acute abdominopelvic process. Reviewed, dictated and finalized at [facility]. IMPRESSION: 3 cm dermal thickening in the right lower quadrant may represent a contusion, s oft tissue hemangioma, or other dermal lesion. Correlate clinically. Otherwise no acute abdominopelvic process.
--- NOTE | 2021-11-24 11:43 | ECG_ITS ---
Measurements Intervals [place] Rate: 91 P: 54 OK: 155 QRS: -30 QRSD: 100 T: 47 QT: 382 QTc: 472 Interpretive Statements SINUS RHYTHM INFERIOR MYOCARDIAL INFARCTION , PROBABLY OLD [40+ ms Q WAVE AND/OR ST/T ABNORMALITY IN II/aVF] NONSPECIFIC ST ABNORMALITY ABNORMAL ECG COMPARED TO ECG 08/29/2021 15:51:40 MYOCARDIAL INFARCT FINDING NOW PRESENT Electronically Signed On 11-25-2021 12:28:46 CDT by Charlie Bernard M.D.
--- NOTE | 2021-11-24 11:43 | PC.NURSE ---
pT PLACED ON BED ALARM AND AUDIBLE. YELLOW CLASP APPLIED AND YELLOW TRIANGLE OUTSIDE OF ROOM
[2021-11-24 11:58] LABS: Basophils Percent Auto 0.3 % (0.2-1.2); Immature Granulocyte Absolute 0.04 K/mm3 (0.00-0.031); Immature Granulocyte Percent A 0.5 % (0-0.5); Lymphocytes Absolute Auto 1.15 K/mm3 (0.9-3.2); Lymphocytes Percent Auto 14.6 % (18.3-44.2); Mean Corpuscular HGB Conc 31.5 g/dl (32-36); Mean Corpuscular Hemoglobin 30.8 pg (26-34); Mean Corpuscular Volume 97.6 fl (80-100); Mean Platelet Volume 10.7 fl (7.4-10.4); Monocytes Absolute Auto 0.2 K/mm3 (0.1-0.6); Monocytes Percent Auto 2.9 % (2.6-8.5); Neutrophils Absolute Auto 6.4 K/mm3 (1.3-6.7); Neutrophils Percent Auto 81.7 % (45.5-73.1); Platelet Count Result 180 k/mm3 (150-375); Red Blood Count 1.69 M/mm3 (4.6-6.20); Red Cell Distribution Width 14.7 % (11.5-14.5); White Blood Count 7.9 K/mm3 (4.5-10.0)
[2021-11-24 12:05] LABS: Hematocrit 16.5 % (42.0-52.0); Hemoglobin 5.2 g/dL (14.0-18.0)
[2021-11-24 12:12] LABS: Alanine Aminotransferase 14 U/L (6-50); Albumin Level 3.1 g/dL (3.5-5.1); Alkaline Phosphatase 72 U/L (38-126); Anion Gap 12 mmol/L (8-16); Aspartate Amino Transferase 19 U/L (17-59); Bilirubin,Total 0.4 mg/dL (0.2-1.3); Calcium 7.7 mg/dL (8.4-10.2); Carbon Dioxide 22 mmol/L (22-30); Chloride 100 mmol/L (98-107); Estimated CRCL calculation 14 ml/min; Estimated Glomerular Filt Rate 10; Glucose 337 mg/dL (65-110); Potassium 4.1 mmol/L (3.4-5.0); Sodium 134 mmol/L (137-145)
[2021-11-24 12:18] LABS: Blood Urea Nitrogen 142 mg/dL (9-20)
[2021-11-24 12:26] LABS: INR 1.2; Prothrombin Time 14.3 Seconds (11.1-14.7)
--- NOTE | 2021-11-24 12:29 | PC.NURSE ---
pt unabke to do ortho VS d/t weakness/dizzyness
--- NOTE | 2021-11-24 12:32 | ED.GENADULT ---
HPI - General Adult General Chief complaint: Syncope Stated complaint: hypotensive, near syncope Time Seen by Provider: 11/24/21 12:01 Source: RN notes reviewed History of Present Illness HPI narrative: Patient presents emergency department from home via EMS for dizziness. Patient states he has had dizziness whenever he stands up for the past several weeks but worse over the past several days states has had total of 3 falls over the past day and states he is unsure if he is lost full consciousness or not he states that after his last fall he did have some mild chest pain around the left side of his chest he states he does have a history of orthostatic hypotension also notes he has a history of chronic renal failure and recently had a fistula placed in his right arm as he is followed by Dr. Paiz and there is talks of the patient starting dialysis soon he denies any fevers or chills shortness of breath states he has been having some intermittent lower abdominal pain over the past several days and does note that his stools been black over the past 2 days patient does states that he does take an aspirin daily he denies any vomiting or diarrhea Related Data Home Medications Medication Instructions Recorded Confirmed aspirin 81 mg tablet,delayed 81 mg PO DAILY 05/09/19 11/20/21 release (Adult Low Dose Aspirin) calcium acetate(phosphat bind) 667 667 mg PO TID 08/15/21 11/20/21 mg capsule insulin aspart U-100 100 unit/mL 8 unit subcut TID PRN blood sugar 08/29/21 11/20/21 (3 mL) subcutaneous pen (Novolog Flexpen U-100 Insulin aspart) omega-3 fatty acids-vitamin E 2,000 cap DAILY 08/29/21 11/20/21 1,000 mg capsule metolazone 2.5 mg tablet 2.5 mg PO DAILY 10/01/21 11/20/21 allopurinol 100 mg tablet 100 mg PO DAILY 11/14/21 11/20/21 insulin degludec 200 unit/mL (3 65 unit subcut DAILY 11/24/21 mL) subcutaneous pen (Tresiba FlexTouch U-200 insulin) Allergies Allergy/AdvReac Type Severity Reaction Status Date / Time enalapril Allergy Unknown COUGH Verified 11/24/21 11:46 Iodinated Contrast Media Allergy Unknown Hives Verified 11/24/21 11:46 Contrast Media Allergy Unknown RASH Uncoded 11/24/21 11:46 Review of Systems Review of Systems: Gen.: Denies fevers or chills Eyes: Denies eye pain or visual change ENT: Denies congestion Respiratory: Denies shortness of breath or cough CV: Denies chest pain reports possible syncope GI: Reports lower abdominal pain denies nausea vomiting or diarrhea notes black stool notes history of chronic renal failure Musculoskeletal: Denies back pain or muscle pain Neuro: Denies numbness, tingling, weakness or focal weakness Skin: Denies rash Except as documented, all other systems reviewed and negative [facility] Past Medical History Medical History Benign prostatic hyperplasia Chronic anemia Chronic kidney disease, stage 4 (severe) Chronic obstructive pulmonary disease Coronary artery disease Catheterization and 2005 showed a chronically occluded RCA. In 2016 he had a drug-eluting stent to the proximal left anterior descending. Diabetes mellitus Diastolic congestive heart failure Echocardiogram on 01/31/2021 showed normal LV systolic function with moderately increased LV wall thickness and grade 1 diastolic dysfunction with an EF estimated 55%. Fistula Hyperlipidemia, unspecified Hypertension Orthostasis Related to autonomic dysfunction from his diabetes. Type 2 diabetes mellitus Hemoglobin A1c was 8.4% on 01/08/2021. Surgical History Surgical History History of ankle surgery Left History of eye surgery Laser eye surgery. Status post cardiac pacemaker procedure His 1st pacemaker was placed in his 30s for sinus pause, syncope and bradycardia and he had generator changes in 2002, 2006, and 2011. His RV lead has high thresholds and he was not pacing in also it was turned
[2021-11-24 12:34] LABS: Troponin I 0.055 ng/mL (0.000-0.034)
[2021-11-24] MEDS: SODIUM CHLORIDE 0.9% IV 250 ML 30 ML IV CONT ×2 (14:01→21:14)
[2021-11-24] MEDS: TUBING, BLOOD PLUM PUMP TUBING 1 EACH XX ×2 (14:14→21:09)
[2021-11-24] MEDS: PANTOPRAZOLE SODIUM IV 40 MG VIAL IV PUSH (15:07)
--- NOTE | 2021-11-24 16:33 | PC.NURSE ---
Report received at 1604 by BALJINDER Flaherty with the ED department. Patient to go to IMU room 210.
--- NOTE | 2021-11-24 16:34 | ADMGEN ---
This patient, Freddie Valero, was admitted to IMU Room 210-01 at 1629 from the ED. Patient/family oriented to hospital policies and general routines including ID bracelet, bed and alarms, visiting hours, pain management, procedures, bathroom and other care routines, personal items, smoking policy, room service/diet, and visiting hours. Information on how to activate the Rapid Response Team has been discussed. Patient/Family are encouraged to report perceived risks to care and to ask questions if they do not understand what they are told or what they should do.
[2021-11-24 18:02] LABS: Hemoglobin 6.1 g/dL (14.0-18.0)
[2021-11-24 18:03] LABS: Hematocrit 18.6 % (42.0-52.0)
[2021-11-24 18:19] LABS: Troponin I 0.052 ng/mL (0.000-0.034)
--- NOTE | 2021-11-24 18:32 | PM.IMHP ---
H&P: HPI History of Present Illness Date/Time: Patient was placed observation status for expected length of stay less than 23 hours for management, will plan to re-evaluate tomorrow for improvement. 11/24/21 18:32 Chief Complaint: Multiple falls Narrative: Mr. Valero is a 66-year-old gentleman who presented emergency room with complaints of multiple falls in last 24 hours. Patient states he has fallen 3 times. Patient states today he fell forward and he is unsure if he lost consciousness. Patient states he does have a history of orthostatic hypotension, but has not had an issue without quite some time. Patient states that recently he did have a right forearm AV fistula placed approximately 3 weeks ago in preparation for hemodialysis. Patient states over the last 2 days he has had dark stools. Patient denies any grady bright red blood in his stool. Patient states that after he had his AV fistula place he was having nausea and vomiting, but denies any recent nausea vomiting. Patient states that yesterday he did have left-sided chest discomfort, but did not think much of it until he had another episode today. Patient states he does have a known history of coronary artery disease status post stent placement. Patient denied any associated shortness of breath, diaphoresis, or palpitations. Upon evaluation in emergency room patient was noted to have a hemoglobin of 5.2 with hematocrit of 16.5. Patient did have a stool guaiac which was positive. Patient states he has not been eating well over the last 2-3 days secondary to the fact that his blood sugars have been quite elevated and he has been trying to get them to come down. Patient has a known history of anemia of chronic disease, end-stage renal disease and is in preparation for hemodialysis, COPD, coronary artery disease status post stent placement and he believes his last stent was in 2019, diabetes mellitus, dyslipidemia, orthostatic hypotension, and BPH. Patient states he has been taking all medications at home without any difficulty. Patient states he has a history of pacemaker placement and has had no difficulties with his pacemaker. Review of Systems Review of Systems: A 12 point review of systems was completed patient all pertinent positive and negative per HPI the remainder are unremarkable. [facility] Past Medical History Medical History Benign prostatic hyperplasia Chronic anemia Chronic kidney disease, stage 4 (severe) Chronic obstructive pulmonary disease Coronary artery disease Catheterization and 2006 showed a chronically occluded RCA. In 2017 he had a drug-eluting stent to the proximal left anterior descending. Diabetes mellitus Diastolic congestive heart failure Echocardiogram on 01/31/2021 showed normal LV systolic function with moderately increased LV wall thickness and grade 1 diastolic dysfunction with an EF estimated 55%. Fistula Hyperlipidemia, unspecified Hypertension Orthostasis Related to autonomic dysfunction from his diabetes. Type 2 diabetes mellitus Hemoglobin A1c was 8.4% on 01/08/2021. Surgical History Surgical History History of ankle surgery Left History of eye surgery Laser eye surgery. Status post cardiac pacemaker procedure His 1st pacemaker was placed in his 30s for sinus pause, syncope and bradycardia and he had generator changes in 2002, 2006, and 2011. His RV lead has high thresholds and he was not pacing in also it was turned off. Status post insertion of drug-eluting stent into left anterior descending (LAD) artery for coronary artery disease Family History Family History Father Family history of premature coronary heart disease, Onset Age: 53 Cerebrovascular accident Patient's father is Diabetes mellitus Hypertension Family history of cardiovascular disease
[2021-11-24 18:38] LABS: Glucose Point of Care 330 mg/dl (65-105)
[2021-11-24] MEDS: FUROSEMIDE INJ 40 MG/4 ML VIAL IV PUSH (18:57)
[2021-11-24] MEDS: INSULIN ASPART (*BKC) 100 UNITS/ML SUB-Q (18:57)
[2021-11-24 20:06] LABS: Glucose Point of Care 330 mg/dl (65-105)
[2021-11-24 21:03] LABS: Hematocrit 17.1 % (42.0-52.0); Hemoglobin 5.8 g/dL (14.0-18.0)
[2021-11-24 21:43] LABS: Troponin I 0.061 ng/mL (0.000-0.034)
[2021-11-25] VITALS (19 sets, daily range): BP systolic 109–176; BP diastolic 46–70; PULSE 84–92; RESP 16–24; TEMP 36.4–37; O2SAT 97–100
[2021-11-25 02:40] LABS: Alanine Aminotransferase 12 U/L (6-50); Albumin Level 2.8 g/dL (3.5-5.1); Alkaline Phosphatase 54 U/L (38-126); Anion Gap 9 mmol/L (8-16); Aspartate Amino Transferase 17 U/L (17-59); Basophils Percent Auto 0.2 % (0.2-1.2); Bilirubin,Total 0.6 mg/dL (0.2-1.3); Calcium 8.1 mg/dL (8.4-10.2); Carbon Dioxide 24 mmol/L (22-30); Chloride 103 mmol/L (98-107); Estimated CRCL calculation 12 ml/min; Estimated Glomerular Filt Rate 10; Glucose 308 mg/dL (65-110); Hematocrit 21.1 % (42.0-52.0); Immature Granulocyte Absolute 0.03 K/mm3 (0.00-0.031); Immature Granulocyte Percent A 0.3 % (0-0.5); Lymphocytes Absolute Auto 2.07 K/mm3 (0.9-3.2); Lymphocytes Percent Auto 23.2 % (18.3-44.2); Mean Corpuscular HGB Conc 32.7 g/dl (32-36); Mean Corpuscular Hemoglobin 31.4 pg (26-34); Mean Corpuscular Volume 95.9 fl (80-100); Mean Platelet Volume 10.2 fl (7.4-10.4); Monocytes Absolute Auto 0.8 K/mm3 (0.1-0.6); Neutrophils Percent Auto 67.3 % (45.5-73.1); Platelet Count Result 161 k/mm3 (150-375); Potassium 4.2 mmol/L (3.4-5.0); Red Cell Distribution Width 14.4 % (11.5-14.5); Sodium 136 mmol/L (137-145); White Blood Count 8.9 K/mm3 (4.5-10.0)
[2021-11-25 02:44] LABS: Hemoglobin 6.9 g/dL (14.0-18.0)
[2021-11-25 03:01] LABS: Blood Urea Nitrogen 158 mg/dL (9-20)
[2021-11-25 07:50] LABS: Hematocrit 20.8 % (42.0-52.0)
--- NOTE | 2021-11-25 07:56 | WPDGICN ---
Assessment and Plan Assessment and plan (1) Occult blood in stools: Code(s): R19.5 - Other fecal abnormalities Status: Acute Assessment and Plan: Patient with occult blood loss along with the modest decline in hemoglobin. Given his history of blackish stools will plan EGD to exclude ulceration. If this is negative a colonoscopy will be considered. Patient does have a prior history of colon polyps with most recent colonoscopy 3 years ago. (2) End stage renal disease: Code(s): N18.6 - End stage renal disease Status: Acute Assessment and Plan: Patient with end-stage renal disease. Dialysis anticipated. In fact catheter was placed 1 month ago. He has chronic anemia felt to be on this basis. (3) Symptomatic anemia: Code(s): D64.9 - Anemia, unspecified Status: Acute Assessment and Plan: Anemia has progressed recently with him now becoming symptomatic with falls and some unsteadiness. Says will plan EGD and if necessary colonoscopy to exclude GI blood loss contributing to anemia. (4) History of colon polyps: Code(s): Z86.010 - Personal history of colonic polyps Status: Acute Assessment and Plan: Patient has a prior history of polyps. Most recent colonoscopy 3 years ago. If endoscopy fails to identify source of upper GI blood loss and Hemoccult-positive stools will plan surveillance colonoscopy. Rigidly colonoscopy was anticipated in 2023. GI Consult Note Consult date/time: 11/25/21 07:56 Reason for consult: Occult blood in stool and worsening anemia. HPI: Freddie Valero is a 66 year old male I am asked to see at the request of the hospitalist service. Patient has a history of chronic kidney disease. One month ago had dialysis catheter placed. He is known to be chronically anemic. Over the last several days has had falls. He has become progressively unsteady on his feet. He presented to the emergency room yesterday and found to be a slight decline in hemoglobin. Stool was found to be Hemoccult positive. Patient reports having had black to dark stools for 2 days prior to presentation. He denies any abdominal pain. He has had no bleeding. Family history is noncontributory. Patient's most recent colonoscopy 3 years ago revealed colon polyps. He has a prior history of colon polyps as well. Patient now admitted and was transfused 2units of packed red blood cells last evening. Feels somewhat better. He does have a prior history of pacemaker placed. Review of Systems Review of Systems: Review of systems noncontributory. [facility] Past Medical History Medical History Benign prostatic hyperplasia Chronic anemia Chronic kidney disease, stage 4 (severe) Chronic obstructive pulmonary disease Coronary artery disease Catheterization and 2005 showed a chronically occluded RCA. In 2016 he had a drug-eluting stent to the proximal left anterior descending. Diabetes mellitus Diastolic congestive heart failure Echocardiogram on 01/31/2021 showed normal LV systolic function with moderately increased LV wall thickness and grade 1 diastolic dysfunction with an EF estimated 55%. Fistula Hyperlipidemia, unspecified Hypertension Orthostasis Related to autonomic dysfunction from his diabetes. Type 2 diabetes mellitus Hemoglobin A1c was 8.4% on 01/08/2021. Surgical History Surgical History History of ankle surgery Left History of eye surgery Laser eye surgery. Status post cardiac pacemaker procedure His 1st pacemaker was placed in his 30s for sinus pause, syncope and bradycardia and he had generator changes in 2002, 2006, and 2011. His RV lead has high thresholds and he was not pacing in also it was turned off. Status post insertion of drug-eluting stent into left anterior descending (LAD) artery for coronary artery disease Family
[2021-11-25 07:57] LABS: Glucose Point of Care 290 mg/dl (65-105)
--- NOTE | 2021-11-25 07:59 | PM.IMPN ---
Progress Note: A&P Assessment and Plan (1) GI bleed: Code(s): K92.2 - Gastrointestinal hemorrhage, unspecified Status: Acute Assessment and Plan: Patient did have a positive Hemoccult stool. Gastroenterology has been consult and appreciate further recommendations. Patient states he has had dark stools for the last 2 days. Patient will be kept NPO after midnight until recommendations received from Gastroenterology. 11/25- Critical H&H was called to me at 0800 this morning of .8. Order was given to transfuse an additional unit. Patient is also en route to the GI lab for EGD to identify the source of the bleed. EGD revealed a single non-bleeding ulcer in the duodenum. Additional unit was being set up as I examined the patient. GI advance diet as tolerated, started pantoprazole 40 mg once daily, advised avoidance of aspirin and NSAIDs. Plan is to stabilize the patient's hemoglobin, with recheck after this transfusion. And when stable discharged to home. (2) Symptomatic anemia: Code(s): D64.9 - Anemia, unspecified Status: Acute Assessment and Plan: Patient's hemoglobin hematocrit are significantly low with dark stools, + hemoccult. Plan as above. (3) Elevated troponin: Code(s): R77.8 - Other specified abnormalities of plasma proteins Status: Acute Assessment and Plan: Most likely secondary to his severe anemia and end-stage renal disease. Chest x-ray showed bibasilar atelectasis. EKG showed NSR, with old inferior infarct. No evidence of ST elevation, T wave inversion. Troponin was mildly elevated and 2nd troponin is trending down. At this point in time no further workup is needed. 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 Continued home insulin dosing, held oral diabetic medications. Will have blood glucose monitoring before meals and at bedtime with sliding scale insulin available. Diabetic diet once able to resume eating. Patient does report to me that he called a provider to come and see him in the hospital, and he will be coming to see him about his glucose between 12 and 1. Will continue to trend glucose. (5) End stage renal disease: Code(s): N18.6 - End stage renal disease Status: Acute Assessment and Plan: Patient does have an AV fistula that was placed approximately 3 weeks ago. Patient follows up with Dr. Paiz who has been consulted. Do appreciate further recommetions. Plan Antihypertensives are being held at this time due to multiple near syncopal episodes, ongoing transfusions. Will reassess once H &H has stabilized. Subjective Date/time seen: 11/25/21 07:59 Interval history: 66 yo Male with patient has a known history of anemia of chronic disease, end-stage renal disease and is in preparation for hemodialysis, COPD, coronary artery disease status post stent placement and he believes his last stent was in 2019, diabetes mellitus, dyslipidemia, orthostatic hypotension, and BPH who presents to us for dark stools and multiple falls in the past 24 hrs. Patient reports he is feeling better today, especially after having something to drink after his EGD. He denies nausea, vomiting. 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 He denies chest pain, shortness a breath, palpitations, dizziness. He does have a mildly tender, silver dollar-sized soft tissue mass in his right lower abdomen. He states this is the site where he will inject his insulin and Trulicity, and has not noticed it before my exam today. It has never caused him any problems. Review of Systems Review of Systems: All systems reviewed & are unremarkable except as noted in HPI and below Exam Narrative:
[2021-11-25] MEDS: SODIUM CHLORIDE 0.9% IV 500 ML 10 ML IV CONT (08:07)
[2021-11-25 08:14] LABS: Glucose Point of Care 278 mg/dl (65-105)
--- NOTE | 2021-11-25 08:18 | WPDANESEPPF ---
Anes - Initial Pre Proc Eval Procedure: Operation Date: 11/25/21 14:00 Proposed Procedures p Esophagogastroduodenoscopy - Theodore Uribe MD Date/Time: 11/25/21 08:18 Surgeon: Ambar Henning PA-C Pre Op Diagnosis: symtomatic anemia,gi bleed,sycope,chronic renal fa Patient Data Age: 66 Gender: M Height: 1.8 m Weight: 97.1 kg Last Vital Signs Temp 36.5 C 11/25/21 08:04 Pulse 88 11/25/21 08:04 Resp 18 11/25/21 08:04 BP 151/59 H 11/25/21 08:04 Pulse Ox 98 11/25/21 08:04 O2 Del Method Room Air 11/25/21 08:04 Allergies Allergy/AdvReac Type Severity Reaction Status Date / Time enalapril Allergy Unknown COUGH Verified 11/24/21 11:46 Iodinated Contrast Media Allergy Unknown Hives Verified 11/24/21 11:46 Contrast Media Allergy Unknown RASH Uncoded 11/24/21 11:46 Home Medications Medication Instructions Recorded Confirmed Type aspirin 81 mg tablet,delayed 81 mg PO DAILY 05/09/19 11/24/21 History release (Adult Low Dose Aspirin) atorvastatin 80 mg tablet 80 mg PO DAILY #90 tabs 05/20/21 11/24/21 Rx calcium acetate(phosphat bind) 667 667 mg PO TIDWM 08/15/21 11/24/21 History mg capsule clopidogrel 75 mg tablet (Plavix) 75 mg PO DAILY #90 tabs 08/21/21 11/24/21 Rx albuterol sulfate 2.5 mg/3 mL 2.5 mg (3 mL) inhalation Q6H PRN 08/22/21 11/24/21 Rx (0.083 %) solution for nebulization shortness of breath or wheezing 1 month #180 mL insulin aspart U-100 100 unit/mL 8 unit subcut TID PRN blood sugar 08/29/21 11/24/21 History (3 mL) subcutaneous pen (Novolog Flexpen U-100 Insulin aspart) omega-3 fatty acids-vitamin E 2,000 cap DAILY 08/29/21 11/24/21 History 1,000 mg capsule furosemide 40 mg tablet (Lasix) 80 mg PO QAM #35 tabs 10/01/21 11/24/21 Rx metolazone 2.5 mg tablet 2.5 mg PO DAILY 10/01/21 11/24/21 History dulaglutide 1.5 mg/0.5 mL 1.5 mg (0.5 mL) subcut WEEKLY 90 10/30/21 11/24/21 Rx subcutaneous pen injector days #6.5 mL (Trulicity) carvedilol 25 mg tablet 12.5 mg PO Q12H 30 days #30 tabs 11/07/21 11/24/21 Rx ezetimibe 10 mg tablet (Zetia) 10 mg PO DAILY 30 days #30 tabs 11/07/21 11/24/21 Rx tamsulosin 0.4 mg capsule 0.4 mg PO DAILY 30 days #30 caps 11/07/21 11/24/21 Rx allopurinol 100 mg tablet 100 mg PO DAILY 11/14/21 11/24/21 History flash glucose scanning reader #1 ea 11/20/21 11/24/21 Rx ([employer] Lizeth 14 Day [place]) flash glucose sensor ([employer] #6 ea 11/20/21 11/24/21 Rx Lizeth 2 Sensor kit) insulin degludec 200 unit/mL (3 65 unit subcut DAILY 11/24/21 11/24/21 History mL) subcutaneous pen (Tresiba FlexTouch U-200 insulin) prednisolone acetate 1 % eye 1 drp DAILY 11/24/21 11/24/21 History drops,suspension Laboratory Tests 11/24/21 11/24/21 11/24/21 11:47 11:49 11:49 WBC 7.9 K/mm3 K/mm3 (4.5-10.0) RBC 1.69 M/mm3 L M/mm3 (4.6-6.20) Hgb 5.2 g/dL L* D g/dL (14.0-18.0) Hct 16.5 % L* % (42.0-52.0) MCV 97.6 fl fl (80-100) MCH 30.8 pg pg (26-34) MCHC 31.5 g/dl L g/dl (32-36) RDW 14.7 % H % (11.5-14.5) Plt Count 180 k/mm3 k/mm3 (150-375) MPV 10.7 fl H fl (7.4-10.4) Immature Gran % (Auto) 0.5 % % (0-0.5) Neut % (Auto) 81.7 % H % (45.5-73.1) Lymph % (Auto) 14.6 % L % (18.3-44.2) Avery % (Auto) 2.9 % % (2.6-8.5) Eos % (Auto) 0.0 % % (0-4.4) Baso % (Auto) 0.3 % % (0.2-1.2) Lymph # (Auto) 1.15 K/mm3 K/mm3 (0.9-3.2) Avery # (Auto) 0.2 K/mm3 K/mm3 (0.1-0.6) Eos # (Auto) 0.0 K/mm3 K/mm3 (0-0.3) Baso # (Auto) 0.0 K/mm3 K/mm3 (0.0-0.1) Abs Immat Gran (auto) 0.04 K/mm3 H K/mm3 (0.00-0.031) Absolute Neuts (auto) 6.4 K/mm3 K/mm3 (1.3-6.7) Absolute Nucleated RBC 0.0 K/mm3 K/mm3 (0.0-0.012) Nucleated RBC % 0.0 % % (0.0-0.2) PT INR APTT
--- NOTE | 2021-11-25 08:58 | SUR.PREOP ---
DR FERNANDEZ NOTIFIED OF PT'S BLOOD SUGAR LEVEL 278, NO NEW ORDERS.
[2021-11-25] MEDS: INSULIN GLARGINE (*BKC) 100 UNITS/ML 65 UNITS SUB-Q (10:19)
[2021-11-25] MEDS: prednisoLONE ACETATE 1% OPHTH 5 ML 1 DROP EACH EYE (10:19)
[2021-11-25] MEDS: allopurinoL 100 MG TABLET PO (10:19)
[2021-11-25] MEDS: SODIUM CHLORIDE 0.9% IV 250 ML 50 ML (11:47)
[2021-11-25] MEDS: TUBING, BLOOD PLUM PUMP TUBING 1 EACH XX (11:47)
[2021-11-25] MEDS: INSULIN ASPART (*BKC) 100 UNITS/ML SUB-Q (11:49)
[2021-11-25] MEDS: CALCIUM ACETATE 667 MG TABLET PO ×2 (11:50→17:18)
[2021-11-25 12:05] LABS: Glucose Point of Care 264 mg/dl (65-105)
--- NOTE | 2021-11-25 14:26 | PM.CNNEP ---
Assessment and Plan Additional Plan 1. Freddie has chronic kidney disease. This is stage 5. His GFR has been in the low teens. He has been to dialysis class and has decided on in center hemodialysis. He went to see surgeon and had a fistula placed. It looks like it is developing well but is not ready to use yet. His creatinine baseline has been around 5.5 with a GFR of around 10. He has not had any uremic signs. Now with the GI bleed and possibly also with the rapid removal of fluid with diuretics his creatinine is still the same but his BUN is very high. As stated above he does not have any uremic signs or symptoms. At this point we will hold diuretics and give a little bit of IV fluids to see if we can get that BUN down. If we can we can hold off on dialysis. He will eventually need diuretics again and I do not want to get him fluid overloaded just to make the BUN better; however, if we can get the BUN down and him not be fluid overloaded then we could wait a little longer to start dialysis and use the fistula without having to put a catheter in. 2. The patient has GI bleeding. His stool is black. He of course has the severe anemia. We can start the patient on EPO and empirically give him some iron because I think is iron levels will be low. He had an appointment with Dr. ghosh who his office says is going to come by. 3. The patient had volume overload before. This is better. Will hold diuretics. Give him a little bit of IV fluids. 4. He has diabetes. He is on Accu-Cheks and sliding-scale insulin. This is all per hospitalists. 5. The patient has renal osteodystrophy. Will check a phosphorus level in the morning. 6. He has hyperlipidemia. He is on meds for this. History of Present Illness Reason for Consult Consult date: 11/25/21 Chief Complaint Chief complaint: symtomatic anemia,gi bleed,sycope,chronic renal fa History of Present Illness Narrative: Freddie is a very pleasant 66-year-old gentleman who has multiple medical problems including chronic kidney disease stage 5, benign prostatic hypertrophy, chronic anemia from chronic kidney disease, hyperlipidemia, hypertension, diabetes, congestive heart failure. Patient has been developing worsening kidney function. He had a fistula placed a few weeks ago and it is maturing nicely. In the meantime a few weeks ago he was volume overloaded. He was given extra diuretics and has improved. His swelling is almost gone and he is not short of breath. His blood pressure was low about 1-2 weeks ago. So his antihypertensives were discontinued. I some last and he was feeling a little bit better. His blood pressure was doing pretty well off his antihypertensives. Over the weekend though he started become dizzy again. He was very lightheaded and actually fell about 4 times he says. Yesterday he fell for the 4th time and started getting chest pain when he tried to get up so they desided to call 911. he notes that his stools have been darker in color. He had a bowel movement today which was black. He has not had any belly pain. No nausea. He went to the emergency room and evaluated him in. His hemoglobin was around 5. He was given a transfusion and admitted to the hospital. This morning he had a scope which showed a duodenal ulcer. Review of Systems Constitutional: Constitutional: Reports no additional constitutional complaints Eyes: Eyes: Reports no additional eye complaints ENT: Reports system reviewed and no additional complaints, except as documented Cardiovascular: Cardiovascular: Reports no additional cardiovascular complaints Respiratory: Respiratory: Reports no additional respiratory complaints Gastrointestinal: Gastrointestinal: Reports no additional gastrointestinal complaints Genitourinary: Genitourinary: Reports no additional male genitourinary complaints Musculoskeletal: Musculoskeletal: Reports no additional
[2021-11-25] MEDS: SODIUM CHLORIDE 0.9% IV 1,000 ML 100 ML IV CONT (15:38)
--- NOTE | 2021-11-25 15:58 | PC.NURSE ---
Patient transfer received from IMU to room 254. Patient oriented to the room.
[2021-11-25 16:33] LABS: Glucose Point of Care 188 mg/dl (65-105)
[2021-11-25 21:02] LABS: Glucose Point of Care 145 mg/dl (65-105)
[2021-11-26 05:51] LABS: Hematocrit 23.3 % (42.0-52.0); Hemoglobin 7.6 g/dL (14.0-18.0); Mean Corpuscular HGB Conc 32.6 g/dl (32-36); Mean Corpuscular Hemoglobin 30.9 pg (26-34); Mean Corpuscular Volume 94.7 fl (80-100); Platelet Count Result 159 k/mm3 (150-375); Red Blood Count 2.46 M/mm3 (4.6-6.20); Red Cell Distribution Width 15.2 % (11.5-14.5); White Blood Count 7.5 K/mm3 (4.5-10.0)
[2021-11-26 06:00] VITALS: BP 157/52; PULSE 86; RESP 20; TEMP 37.1; O2SAT 98
[2021-11-26 06:13] LABS: Albumin Level 2.8 g/dL (3.5-5.1); Anion Gap 8 mmol/L (8-16); Calcium 8.3 mg/dL (8.4-10.2); Carbon Dioxide 27 mmol/L (22-30); Chloride 109 mmol/L (98-107); Estimated CRCL calculation 13 ml/min; Estimated Glomerular Filt Rate 11; Glucose 89 mg/dL (65-110); Phosphorus 4.5 mg/dL (2.5-4.5); Sodium 144 mmol/L (137-145)
[2021-11-26 06:36] LABS: Blood Urea Nitrogen 146 mg/dL (9-20)
[2021-11-26 07:49] LABS: Glucose Point of Care 97 mg/dl (65-105)
--- NOTE | 2021-11-26 08:51 | WPDANESPN ---
Anes - Prog Note Post-Op Date/Time: 11/26/21 08:51 Cardiovascular status: normal Respiratory status: normal Airway patency: baseline Mental status: baseline Post-Op hydration status: normal Vital Signs: Last Vital Signs Temp 37.1 C 11/26/21 06:00 Pulse 86 11/26/21 06:00 Resp 20 11/26/21 06:00 BP 157/52 H 11/26/21 06:00 Pulse Ox 98 11/26/21 06:00 O2 Del Method Room Air 11/25/21 09:43 Pain Score (VAS): 0 I/O: Intake & Output 11/25/21 11/26/21 11/26/21 23:59 07:59 15:59 Intake Total 600 1600 740 Output Total 1000 Balance 600 600 740 Laboratory Tests 11/26/21 05:31 11/26/21 05:31 11/24/21 11/25/21 11/25/21 11:47 11:32 16:30 WBC RBC Hgb Hct MCV MCH MCHC RDW Plt Count MPV Sodium Potassium Chloride Carbon Dioxide Anion Gap BUN Creatinine Estim Creat Clear Calc Estimated GFR Glucose POC Capillary Glucose 264 H 188 H Calcium Phosphorus Albumin Blood Type O Positive Antibody Screen Negative Crossmatch See Detail 11/25/21 11/26/21 11/26/21 20:17 05:31 05:31 WBC 7.5 RBC 2.46 L Hgb 7.6 L Hct 23.3 L MCV 94.7 MCH 30.9 MCHC 32.6 RDW 15.2 H Plt Count 159 MPV 10.0 Sodium 144 Potassium 4.0 Chloride 109 H Carbon Dioxide 27 Anion Gap 8 BUN 146 H D Creatinine 5.20 H Estim Creat Clear Calc 13 Estimated GFR 11 L Glucose 89 POC Capillary Glucose 145 H Calcium 8.3 L Phosphorus 4.5 Albumin 2.8 L Blood Type Antibody Screen Crossmatch 11/26/21 07:32 WBC RBC Hgb Hct MCV MCH MCHC RDW Plt Count MPV Sodium Potassium Chloride Carbon Dioxide Anion Gap BUN Creatinine Estim Creat Clear Calc Estimated GFR Glucose POC Capillary Glucose 97 Calcium Phosphorus Albumin Blood Type Antibody Screen Crossmatch Post-procedural complaints: none Patient Feedback: Patient satisfied with anesthetic care.
[2021-11-26] MEDS: allopurinoL 100 MG TABLET PO (08:53)
[2021-11-26] MEDS: CALCIUM ACETATE 667 MG TABLET PO ×3 (08:53→16:58)
[2021-11-26] MEDS: PANTOPRAZOLE 40 MG TABLET PO (08:54)
[2021-11-26] MEDS: prednisoLONE ACETATE 1% OPHTH 5 ML 1 DROP EACH EYE (08:54)
[2021-11-26 09:43] LABS: Glucose Point of Care 126 mg/dl (65-105)
[2021-11-26] MEDS: INSULIN GLARGINE (*BKC) 100 UNITS/ML 65 UNITS SUB-Q (10:06)
--- NOTE | 2021-11-26 11:13 | WPDGIPROGNO ---
Progress Note: A&P Assessment and Plan (1) Duodenal ulcer: Code(s): K26.9 - Duodenal ulcer, unspecified as acute or chronic, without hemorrhage or perforation Status: Acute Assessment and Plan: Duodenal ulcer. This appears to have caused recent GI bleeding accounting for his decline in hemoglobin and occult blood in stool. No longer bleeding identified by endoscopy. Plan to avoid NSAIDs. Advance diet as tolerated. Continue to monitor hemoglobin as an outpatient. Long-term use of PPI advised. (2) History of colon polyps: Code(s): Z86.010 - Personal history of colonic polyps Status: Acute Assessment and Plan: Patient with history of colon polyps. Most recent colonoscopy 3 years ago. Plan follow-up colonoscopy at 5 year intervals. (3) End stage renal disease: Code(s): N18.6 - End stage renal disease Status: Acute Assessment and Plan: End-stage renal disease dialysis to starts soon. Nephrology service following. He now has a fistula probe newly placed over the last month. (4) Symptomatic anemia: Code(s): D64.9 - Anemia, unspecified Status: Acute Assessment and Plan: Patient has chronic anemia with a decline from recent duodenal ulcer. Baseline anemia likely related to chronic kidney disease. Plan to monitor hemoglobin after discharge electively through the primary care service. Subjective Date/time seen: 11/26/21 11:13 Patient alert comfortable this morning. Anxious to go home. Has not been too active but has not noted any significant dizziness or weakness currently. No additional bleeding reported. Stools now normal color. Tolerating diet. Review of Systems Review of Systems: Review of systems noncontributory. Exam Narrative: Physical exam reveals patient to be alert comfortable at rest. HEENT exam reveals no icterus. Lungs are clear. Heart without murmur. Abdomen bowel sounds present soft nontender with no organomegaly. Objective Data Vital Signs Vital Signs: Vital Signs - 24 hr 11/25/21 11:30 11/25/21 11:45 11/25/21 11:59 Temperature 98.5 F 98.6 F 97.5 F L Pulse Rate 85 86 85 Respiratory Rate 18 18 18 Blood Pressure 165/70 H 171/63 H 165/70 H Pulse Oximetry 100 100 100 11/25/21 11:45 11/25/21 13:25 11/25/21 14:00 Temperature 98.3 F 97.6 F Pulse Rate 86 85 87 Respiratory Rate 18 16 Blood Pressure 172/68 H 176/64 H Pulse Oximetry 100 100 11/25/21 12:00 11/25/21 22:00 11/26/21 06:00 Temperature 98.2 F 98.7 F Pulse Rate 87 89 86 Respiratory Rate 20 20 Blood Pressure 145/63 H 157/52 H Pulse Oximetry 98 98 Intake/Output Intake/Output: Intake & Output 11/23/21 11/24/21 11/25/21 11/26/21 23:59 23:59 23:59 23:59 Intake Total 350 2124 2340 Output Total 600 2450 1000 Balance -250 -326 1340 Meds/Results Medications: Active Medications Generic Name Dose Route Start Last Admin Trade Name Freq PRN Reason Stop Dose Admin Albuterol 2.5 mg 11/25/21 08:08 Albuterol Sulfate Neb 2.5 Mg/3 Ml Inh INHALATION Q6H PRN shortness of breath or wheezing Allopurinol 100 mg 11/25/21 09:00 11/26/21 08:53 Allopurinol 100 Mg Tablet PO 100 mg DAILY MADIE Administration Calcium Acetate 667 mg 11/25/21 12:00 11/26/21 08:53 Calcium Acetate 667 Mg Tablet PO 667 mg TIDWM MADIE Administration Dextrose 12.5 gm 11/24/21 16:11 Dextrose 50% 25 Gm/50 Ml Syringe IV PUSH PRN PRN Hypoglycemia Protocol Glucagon 1 mg 11/24/21 16:11 Glucagon For Inj 1 Mg Vial IM PRN PRN Hypoglycemia Protocol Glucose 15 gm 11/24/21 16:11 Glucose Oral Gel 15 Gm Of Glucse In 37.5 Gm Tube PO PRN PRN Hypoglycemia Protocol Dextrose 1,000 mls @ 100 mls/hr 11/24/21 16:11 Dextrose 5% 1,000 Ml IVPB PRN PRN Hypoglycemia Protocol Insulin Aspart 3 - 6 units 11/24/21 17:00 11/26/21 08:02 Insulin Aspart (*Bkc) 100 Un
[2021-11-26 11:20] LABS: Glucose Point of Care 133 mg/dl (65-105)
--- NOTE | 2021-11-26 13:35 | PM.IMPN ---
Progress Note: A&P Assessment and Plan (1) End stage renal disease: Code(s): N18.6 - End stage renal disease Status: Acute Assessment and Plan: Patient does have an AV fistula that was placed approximately 3 weeks ago. Of note patient's BUN on admission was over 140. This increased to 158, but after gentle IV fluids for few hours yesterday it came down to 146. Creatinine is 5.2 today. The patient denies anorexia, nausea, vomiting, metallic taste, chest pain. On exam bilateral tremor of the hands is noted. No pericardial friction rub or new murmur appreciated. Patient is alert and oriented. I spoke with Dr. Paiz who will see this patient to evaluate whether not in-patient dialysis is merited. His AV fistula is not yet ready for dialysis. (2) GI bleed: Code(s): K92.2 - Gastrointestinal hemorrhage, unspecified Status: Acute Assessment and Plan: Patient did have a positive Hemoccult stool. Gastroenterology has been consult and appreciate further recommendations. Patient states he has had dark stools for the last 2 days. Patient will be kept NPO after midnight until recommendations received from Gastroenterology. 11/25- Critical H&H was called to me at 0800 this morning of .8. Order was given to transfuse an additional unit. Patient is also en route to the GI lab for EGD to identify the source of the bleed. EGD revealed a single non-bleeding ulcer in the duodenum. Additional unit was being set up as I examined the patient. GI advance diet as tolerated, started pantoprazole 40 mg once daily, advised avoidance of aspirin and NSAIDs. Plan is to stabilize the patient's hemoglobin, with recheck after this transfusion. And when stable discharged to home. 11/26 H&H 7.12/05 today after 3rd unit of blood. We will recheck it at noon. Patient continues to report dark stools, however GI did identify a single duodenal ulcer that is no longer bleeding. The patient is tolerating his diet, plan will be to avoid NSAID use, and long-term use of PPI was advised. (3) Symptomatic anemia: Code(s): D64.9 - Anemia, unspecified Status: Acute Assessment and Plan: Patient's hemoglobin hematocrit are significantly low with dark stools, + hemoccult. Plan as above. (4) Elevated troponin: Code(s): R77.8 - Other specified abnormalities of plasma proteins Status: Acute Assessment and Plan: Most likely secondary to his severe anemia and end-stage renal disease. Chest x-ray showed bibasilar atelectasis. EKG showed NSR, with old inferior infarct. No evidence of ST elevation, T wave inversion. Troponin was mildly elevated and 2nd troponin is trending down. At this point in time no further workup is needed. 11/26-bibasilar inspiratory crackles on exam. Patient is breathing comfortably on room air, in no distress. He denies shortness of Breath, orthopnea, or PND. (5) Type 2 diabetes mellitus with hyperglycemia, with long-term current use of insulin: Code(s): E11.65 - Type 2 diabetes mellitus with hyperglycemia; Z79.4 - prison (current) use of insulin Status: Acute Assessment and Plan: Glucose 89 today. Continued home insulin dosing, held oral diabetic medications. Will have blood glucose monitoring before meals and at bedtime with sliding scale insulin available. Diabetic diet. Following. Plan Antihypertensives are being held at this time due to multiple near syncopal episodes, ongoing transfusions. Will reassess once H &H has stabilized. Subjective Date/time seen: 11/26/21 13:35 Interval history: 66 yo Male with patient has a known history of anemia of chronic disease, end-stage renal disease and is in preparation for hemodialysis, COPD, coronary artery disease status post stent placement and he believes his last stent was in 2019, diabetes mellitus, dyslipidemia, orthostatic hypotension, and BPH who presents to us for dark stools and multiple fal
[2021-11-26 13:45] VITALS: BP 160/68; PULSE 92; RESP 16; TEMP 36.4; O2SAT 99
[2021-11-26 14:10] LABS: Hematocrit 26.3 % (42.0-52.0); Hemoglobin 8.5 g/dL (14.0-18.0)
--- NOTE | 2021-11-26 15:25 | PM.PNNEP ---
Progress Note: A&P Additional Plan 1. Freddie has chronic kidney disease. This is stage 5. His GFR has been in the low teens. He has a fistula in place in the right upper arm. His creatinine baseline has been around 5.5 with a GFR of around 10. He has not had any uremic signs. Currently his creatinine is stable in the GFR is stable as well. His BUN is very high most likely due to absorption of blood/BUN due to the GI bleed.. As stated above he does not have any uremic signs or symptoms. Discussed with CLINICAL UNIT EDUCATOR Mauir. will hold off diuretics again and give another round of IV fluids this evening. We can recheck labs tomorrow. If there is a trend downward I think we could probably send him home as long as he does not have any symptoms. 2. The patient has GI bleeding. He is on pantoprazole. His hemoglobin is stable. 3. The patient had volume overload before. This is better. Will hold diuretics. Give him a little bit of IV fluids. 4. He has diabetes. He is on Accu-Cheks and sliding-scale insulin. This is all per hospitalists. 5. The patient has renal osteodystrophy. Will check a phosphorus level in the morning. 6. He has hyperlipidemia. He is on meds for this. Subjective Date/time seen: 11/26/21 15:25 Interval history: patient feels better today. No chest pain or shortness of breath eating pretty well, about 50% of his food. No nausea. Review of Systems Cardiovascular: Cardiovascular: Reports no additional cardiovascular complaints Respiratory: Respiratory: Reports no additional respiratory complaints Gastrointestinal: Gastrointestinal: Reports no additional gastrointestinal complaints Genitourinary: Genitourinary: Reports no additional male genitourinary complaints Exam Narrative: WDWN in NAD skin no rash head ncat lungs clear cor reg no rub abd BS+ nontender and soft ext no edema. Objective Data Vital Signs Vital Signs: Vital Signs - 24 hr 11/25/21 22:00 11/26/21 06:00 11/26/21 13:45 Temperature 36.8 C 37.1 C 36.4 C Pulse Rate 89 86 92 Respiratory Rate 20 20 16 Blood Pressure 145/63 H 157/52 H 160/68 H Pulse Oximetry 98 98 99 Intake/Output Intake/Output: Intake & Output 11/23/21 11/24/21 11/25/2114/22 23:59 23:59 23:59 23:59 Intake Total 350 2124 2820 Output Total 600 2450 1450 Balance -250 -326 1370 Meds/Results Medications: Active Medications Generic Name Dose Route Start Last Admin Trade Name Freq PRN Reason Stop Dose Admin Albuterol 2.5 mg 11/25/21 08:08 Albuterol Sulfate Neb 2.5 Mg/3 Ml Inh INHALATION Q6H PRN shortness of breath or wheezing Allopurinol 100 mg 11/25/21 09:00 11/26/21 08:53 Allopurinol 100 Mg Tablet PO 100 mg DAILY MADIE Administration Calcium Acetate 667 mg 11/25/21 12:00 11/26/21 12:05 Calcium Acetate 667 Mg Tablet PO 667 mg TIDWM MADIE Administration Collagenase 1 applic 11/26/21 09:00 Collagenase Oint 30 Gm Tube TOPICAL QAM MADIE Dextrose 12.5 gm 11/24/21 16:11 Dextrose 50% 25 Gm/50 Ml Syringe IV PUSH PRN PRN Hypoglycemia Protocol Gentamicin Sulfate 1 applic 11/26/21 09:00 Gentamicin Sulfate 0.1% Oint 15 Gm Tube TOPICAL DAILY MADIE Glucagon 1 mg 11/24/21 16:11 Glucagon For Inj 1 Mg Vial IM PRN PRN Hypoglycemia Protocol Glucose 15 gm 11/24/21 16:11 Glucose Oral Gel 15 Gm Of Glucse In 37.5 Gm Tube PO PRN PRN Hypoglycemia Protocol Dextrose 1,000 mls @ 100 mls/hr 11/24/21 16:11 Dextrose 5% 1,000 Ml IVPB PRN PRN Hypoglycemia Protocol Insulin Aspart 3 - 6 units 11/24/21 17:00 11/26/21 11:49 Insulin Aspart (*Bkc) 100 Units/Ml SUB-Q Not Given TIDWM [facility] Protocol Insulin Glargine 65 units 11/25/21 09:00 11/26/21 10:06 Insulin Glargine (*Bkc) 100 Units/Ml SUB-Q 12/25/21 08:59 65 units DAILY MADIE Administration Pantoprazole Sodium 40 mg 0
[2021-11-26] MEDS: SODIUM CHLORIDE 0.9% IV 1,000 ML 100 ML IV CONT (15:59)
[2021-11-26] MEDS: GENTAMICIN SULFATE 0.1% OINT 15 GM TUBE 1 APPLIC TOPICAL (16:03)
[2021-11-26] MEDS: COLLAGENASE OINT 30 GM TUBE 1 APPLIC TOPICAL (16:03)
[2021-11-26 16:30] LABS: Glucose Point of Care 182 mg/dl (65-105)
[2021-11-26 19:49] VITALS: BP 175/71; PULSE 86; RESP 20; TEMP 36.7; O2SAT 100
[2021-11-26 20:00] VITALS: PULSE 86; RESP 20; O2SAT 100
[2021-11-27 04:35] VITALS: BP 150/58; PULSE 87; RESP 16; TEMP 36.6; O2SAT 98
[2021-11-27 05:35] LABS: Hematocrit 22.6 % (42.0-52.0); Hemoglobin 7.4 g/dL (14.0-18.0); Mean Corpuscular HGB Conc 32.7 g/dl (32-36); Mean Corpuscular Hemoglobin 31.4 pg (26-34); Mean Corpuscular Volume 95.8 fl (80-100); Mean Platelet Volume 9.9 fl (7.4-10.4); Platelet Count Result 168 k/mm3 (150-375); Red Blood Count 2.36 M/mm3 (4.6-6.20); Red Cell Distribution Width 15.2 % (11.5-14.5); White Blood Count 6.6 K/mm3 (4.5-10.0)
[2021-11-27 05:46] LABS: Albumin Level 2.9 g/dL (3.5-5.1); Anion Gap 5 mmol/L (8-16); Blood Urea Nitrogen 117 mg/dL (9-20); Calcium 8.2 mg/dL (8.4-10.2); Carbon Dioxide 28 mmol/L (22-30); Chloride 110 mmol/L (98-107); Estimated CRCL calculation 14 ml/min; Estimated Glomerular Filt Rate 12; Glucose 68 mg/dL (65-110); Phosphorus 4.3 mg/dL (2.5-4.5); Potassium 3.8 mmol/L (3.4-5.0); Sodium 143 mmol/L (137-145)
[2021-11-27 07:35] LABS: Glucose Point of Care 63 mg/dl (65-105)
--- NOTE | 2021-11-27 07:51 | WPDGIPROGNO ---
Progress Note: A&P Assessment and Plan (1) Acute on chronic anemia: Code(s): D64.9 - Anemia, unspecified Status: Acute Assessment and Plan: No active bleeding. Patient has chronic anemia related to kidney disease. Recent decline in hemoglobin likely related to GI blood loss from duodenal ulcer. Currently hemoglobin stable. Suggest intermittent follow-up blood counts after discharge. (2) Duodenal ulcer: Code(s): K26.9 - Duodenal ulcer, unspecified as acute or chronic, without hemorrhage or perforation Status: Acute Assessment and Plan: Duodenal ulcer identified time of endoscopy appears to been source of recent GI blood loss. Plan to continue PPI therapy. Avoid NSAIDs. At this stage regular diet is suggested. Okay from GI per for discharge. (3) History of colon polyps: Code(s): Z86.010 - Personal history of colonic polyps Status: Acute Assessment and Plan: Patient has had a prior history of colon polyps. Plan for follow-up colonoscopy in 2 years unless symptoms dictate otherwise per (4) End stage renal disease: Code(s): N18.6 - End stage renal disease Status: Acute Assessment and Plan: renal service following patient. Ultimately dialysis anticipated. He has a new fistula in his arm. Subjective Date/time seen: 11/27/21 07:51 Patient alert comfortable this morning. Tolerating diet. No evidence for bleeding. Denies abdominal pain. Review of Systems Review of Systems: Review of systems noncontributory. Exam Narrative: Physical exam reveals patient be alert. Vital signs are stable. HEENT exam reveals no icterus. Lungs are clear. Heart without murmur. Abdomen bowel sounds present soft nontender with no organomegaly. Objective Data Vital Signs Vital Signs: Vital Signs - 24 hr 11/26/21 13:45 11/26/21 19:49 11/26/21 20:00 Temperature 97.6 F 98.1 F Pulse Rate 92 86 86 Respiratory Rate 16 20 20 Blood Pressure 160/68 H 175/71 H Pulse Oximetry 99 100 100 Oxygen Delivery Room Air 11/27/21 04:35 Temperature 97.8 F Pulse Rate 87 Respiratory Rate 16 Blood Pressure 150/58 H Pulse Oximetry 98 Oxygen Delivery Intake/Output Intake/Output: Intake & Output 11/24/21 11/25/21 11/26/21 11/27/21 23:59 23:59 23:59 23:59 Intake Total 350 2124 3300 1250 Output Total 600 2450 2100 550 Balance -250 -326 1200 700 Meds/Results Medications: Active Medications Generic Name Dose Route Start Last Admin Trade Name Freq PRN Reason Stop Dose Admin Albuterol 2.5 mg 11/25/21 08:08 Albuterol Sulfate Neb 2.5 Mg/3 Ml Inh INHALATION Q6H PRN shortness of breath or wheezing Allopurinol 100 mg 11/25/21 09:00 11/26/21 08:53 Allopurinol 100 Mg Tablet PO 100 mg DAILY MADIE Administration Calcium Acetate 667 mg 11/25/21 12:00 11/26/21 16:58 Calcium Acetate 667 Mg Tablet PO 667 mg TIDWM MADIE Administration Collagenase 1 applic 11/26/21 09:00 11/26/21 16:03 Collagenase Oint 30 Gm Tube TOPICAL 1 applic QAM MADIE Administration Dextrose 12.5 gm 11/24/21 16:11 Dextrose 50% 25 Gm/50 Ml Syringe IV PUSH PRN PRN Hypoglycemia Protocol Gentamicin Sulfate 1 applic 11/26/21 09:00 11/26/21 16:03 Gentamicin Sulfate 0.1% Oint 15 Gm Tube TOPICAL 1 applic DAILY MADIE Administration Glucagon 1 mg 11/24/21 16:11 Glucagon For Inj 1 Mg Vial IM PRN PRN Hypoglycemia Protocol Glucose 15 gm 11/24/21 16:11 Glucose Oral Gel 15 Gm Of Glucse In 37.5 Gm Tube PO PRN PRN Hypoglycemia Protocol Dextrose 1,000 mls @ 100 mls/hr 11/24/21 16:11 Dextrose 5% 1,000 Ml IVPB PRN PRN Hypoglycemia Protocol Insulin Aspart 3 - 6 units 11/24/21 17:00 11/26/21 16:36 Insulin Aspart (*Bkc) 100 Units/Ml SUB-Q Not Given TIDWM MADIE Protocol Insulin Glargine 65 units 11/25/21 09:00 11/26/21 10:06 Insulin Glargine (*Bk
[2021-11-27 08:00] VITALS: BP 137/64; PULSE 88; RESP 16; TEMP 36.2; O2SAT 96
[2021-11-27] MEDS: PANTOPRAZOLE 40 MG TABLET PO (08:14)
[2021-11-27] MEDS: CALCIUM ACETATE 667 MG TABLET PO (08:14)
[2021-11-27] MEDS: allopurinoL 100 MG TABLET PO (08:14)
[2021-11-27] MEDS: prednisoLONE ACETATE 1% OPHTH 5 ML 1 DROP EACH EYE (08:15)
[2021-11-27 08:48] LABS: Glucose Point of Care 84 mg/dl (65-105)
--- NOTE | 2021-11-27 09:49 | PM.PNNEP ---
Progress Note: A&P Additional Plan 1. Freddie has chronic kidney disease. This is stage 5. His GFR has been in the low teens. He has a fistula in place in the right upper arm. His creatinine baseline has been around 5.5 with a GFR of around 10. This is all stable. He has not had any uremic signs. BUN was very high on admission due to GI bleeding and dehydration. This has improved dramatically with holding diuretics and with temporal distance from the bleed. He has no uremic symptoms. I think he can go home today. I told him not to take diuretics tomorrow or Thursday but she start his furosemide 1 daily after that. He will get labs on Thursday. I will put lab orders in to the [employer] computer. He will call me on Thursday for results and as status on his fluid situation. Long discussion with the patient and with . Discussed with Crystal Rao NP 2. The patient has GI bleeding. He is on pantoprazole. His hemoglobin is stable. 3. The patient had volume overload before. This is better. Will hold diuretics. Give him a little bit of IV fluids. 4. He has diabetes. He is on Accu-Cheks and sliding-scale insulin. This is all per hospitalists. 5. The patient has renal osteodystrophy. Phosphorus is normal 6. He has hyperlipidemia. He is on meds for this. Subjective Date/time seen: 11/27/21 09:49 Interval history: patient feels better today. Eager for discharge. No shortness of breath. Eating well. Exam Narrative: WDWN in NAD skin no rash head ncat lungs clear cor reg no rub abd BS+ nontender and soft ext no edema. Objective Data Vital Signs Vital Signs: Vital Signs - 24 hr 11/26/21 13:45 11/26/21 19:49 11/26/21 20:00 Temperature 36.4 C 36.7 C Pulse Rate 92 86 86 Respiratory Rate 16 20 20 Blood Pressure 160/68 H 175/71 H Pulse Oximetry 99 100 100 Oxygen Delivery Room Air 11/27/21 04:35 11/27/21 08:00 Temperature 36.6 C 36.2 C L Pulse Rate 87 88 Respiratory Rate 16 16 Blood Pressure 150/58 H 137/64 Pulse Oximetry 98 96 Oxygen Delivery Intake/Output Intake/Output: Intake & Output 11/24/21 11/25/21 11/26/21 11/27/21 23:59 23:59 23:59 23:59 Intake Total 350 2124 3300 1490 Output Total 600 2450 2100 550 Balance -250 -326 1200 940 Meds/Results Medications: Active Medications Generic Name Dose Route Start Last Admin Trade Name Freq PRN Reason Stop Dose Admin Albuterol 2.5 mg 11/25/21 08:08 Albuterol Sulfate Neb 2.5 Mg/3 Ml Inh INHALATION Q6H PRN shortness of breath or wheezing Allopurinol 100 mg 11/25/21 09:00 11/27/21 08:14 Allopurinol 100 Mg Tablet PO 100 mg DAILY MADIE Administration Calcium Acetate 667 mg 11/25/21 12:00 11/27/21 08:14 Calcium Acetate 667 Mg Tablet PO 667 mg TIDWM MADIE Administration Collagenase 1 applic 11/26/21 09:00 11/26/21 16:03 Collagenase Oint 30 Gm Tube TOPICAL 1 applic QAM MADIE Administration Dextrose 12.5 gm 11/24/21 16:11 Dextrose 50% 25 Gm/50 Ml Syringe IV PUSH PRN PRN Hypoglycemia Protocol Gentamicin Sulfate 1 applic 11/26/21 09:00 11/26/21 16:03 Gentamicin Sulfate 0.1% Oint 15 Gm Tube TOPICAL 1 applic DAILY MADIE Administration Glucagon 1 mg 11/24/21 16:11 Glucagon For Inj 1 Mg Vial IM PRN PRN Hypoglycemia Protocol Glucose 15 gm 11/24/21 16:11 Glucose Oral Gel 15 Gm Of Glucse In 37.5 Gm Tube PO PRN PRN Hypoglycemia Protocol Dextrose 1,000 mls @ 100 mls/hr 11/24/21 16:11 Dextrose 5% 1,000 Ml IVPB PRN PRN Hypoglycemia Protocol Insulin Aspart 3 - 6 units 11/24/21 17:00 11/27/21 08:12 Insulin Aspart (*Bkc) 100 Units/Ml SUB-Q Not Given TIDWM MADIE Protocol Insulin Glargine 65 units 11/25/21 09:00 11/27/21 09:22 Insulin Glargine (*Bkc) 100 Units/Ml SUB-Q 12/25/21 08:59 Not Given DAILY MADIE Pantoprazole Sodium 40 mg 11/26/21 09:00
[2021-11-27 09:57] VITALS: O2SAT 96
--- NOTE | 2021-11-27 10:24 | PM.DS ---
DS: Admitting Diagnosis Discharge Date 11/27/2021 Admitting Diagnosis Generalized weakness Physical debility Anemia Gastrointestinal hemorrhage Diabetes mellitus type 2 with hyperglycemia End-stage renal disease on dialysis DS: Discharge Diagnosis Discharge Diagnosis (1) End stage renal disease: Code(s): N18.6 - End stage renal disease Status: Acute Assessment and Plan: Patient does have an AV fistula that was placed approximately 3 weeks ago. Of note patient's BUN on admission was over 140. This increased to 158, but after gentle IV fluids for few hours yesterday it came down to 146. Creatinine is 5.2 today. The patient denies anorexia, nausea, vomiting, metallic taste, chest pain. On exam bilateral tremor of the hands is noted. No pericardial friction rub or new murmur appreciated. Patient is alert and oriented. I spoke with Dr. Paiz who will see this patient to evaluate whether not in-patient dialysis is merited. His AV fistula is not yet ready for dialysis. (2) GI bleed: Code(s): K92.2 - Gastrointestinal hemorrhage, unspecified Status: Acute Assessment and Plan: Patient did have a positive Hemoccult stool. Gastroenterology has been consult and appreciate further recommendations. Patient states he has had dark stools for the last 2 days. Patient will be kept NPO after midnight until recommendations received from Gastroenterology. 11/25- Critical H&H was called to me at 0800 this morning of .8. Order was given to transfuse an additional unit. Patient is also en route to the GI lab for EGD to identify the source of the bleed. EGD revealed a single non-bleeding ulcer in the duodenum. Additional unit was being set up as I examined the patient. GI advance diet as tolerated, started pantoprazole 40 mg once daily, advised avoidance of aspirin and NSAIDs. Plan is to stabilize the patient's hemoglobin, with recheck after this transfusion. And when stable discharged to home. 11/26 H&H 7.12/05 today after 3rd unit of blood. We will recheck it at noon. Patient continues to report dark stools, however GI did identify a single duodenal ulcer that is no longer bleeding. The patient is tolerating his diet, plan will be to avoid NSAID use, and long-term use of PPI was advised. (3) Symptomatic anemia: Code(s): D64.9 - Anemia, unspecified Status: Acute Assessment and Plan: Patient's hemoglobin hematocrit are significantly low with dark stools, + hemoccult. Plan as above. (4) Elevated troponin: Code(s): R77.8 - Other specified abnormalities of plasma proteins Status: Acute Assessment and Plan: Most likely secondary to his severe anemia and end-stage renal disease. Chest x-ray showed bibasilar atelectasis. EKG showed NSR, with old inferior infarct. No evidence of ST elevation, T wave inversion. Troponin was mildly elevated and 2nd troponin is trending down. At this point in time no further workup is needed. 11/26-bibasilar inspiratory crackles on exam. Patient is breathing comfortably on room air, in no distress. He denies shortness of Breath, orthopnea, or PND. 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 Continued home insulin dosing, held oral diabetic medications. Will have blood glucose monitoring before meals and at bedtime with sliding scale insulin available. Diabetic diet. Following. Plan Antihypertensives are being held at this time due to multiple near syncopal episodes, ongoing transfusions. Will reassess once H &H has stabilized. DS: Summary Hospital Course Reason for hospitalization: Physical debility Symptomatic anemia Gastrointestinal hemorrhage Diabetes mellitus type [address] on
== END 2021-11-27 12:00 | disposition home or self-care (01) | DRG 377 ==
LOC: ANHED 15:23 → ANHIMU 15:26 → ANH2MED 11-25 15:38
PROVIDERS: General Practice; Internal Medicine Gastroenterology; Internal Medicine Nephrology; Nurse Practitioner Adult Health; Student in an Organized Health Care Education/Training Program; Admitting Provider Internal Medicine; Emergency Provider Emergency Medicine; PCP Internal Medicine; Visit Provider Nurse Practitioner Family
PROC: 0DJ08ZZ Inspection of Upper Intestinal Tract, Via Natural or Artificial Opening Endoscopic (ICD-10-PCS; CPT 43235; principal; 2021-11-25 14:00)
DX: K26.0 Acute duodenal ulcer with hemorrhage (principal); N18.6 End stage renal disease; I13.2 Hypertensive heart and chronic kidney disease with heart failure and with stage 5 chronic kidney disease, or end stage renal disease; R77.8 Other specified abnormalities of plasma proteins; Z79.4 Long term (current) use of insulin; E11.65 Type 2 diabetes mellitus with hyperglycemia; N40.0 Benign prostatic hyperplasia without lower urinary tract symptoms; E78.5 Hyperlipidemia, unspecified; I25.10 Atherosclerotic heart disease of native coronary artery without angina pectoris; J44.9 Chronic obstructive pulmonary disease, unspecified; E11.22 Type 2 diabetes mellitus with diabetic chronic kidney disease; Z80.0 Family history of malignant neoplasm of digestive organs; Z99.2 Dependence on renal dialysis; I50.9 Heart failure, unspecified; Z86.010 Personal history of colon polyps; N25.0 Renal osteodystrophy; D63.1 Anemia in chronic kidney disease; Z95.0 Presence of cardiac pacemaker; Z83.3 Family history of diabetes mellitus; Z82.49 Family history of ischemic heart disease and other diseases of the circulatory system; Z95.5 Presence of coronary angioplasty implant and graft; K31.89 Other diseases of stomach and duodenum; E86.0 Dehydration; Z79.899 Other long term (current) drug therapy; Z79.82 Long term (current) use of aspirin; Z79.52 Long term (current) use of systemic steroids
CPT/HCPCS: 36415; 36430; 70450; 71045; 74176; 80053; 80069; 82948; 84484; 85014; 85018; 85025; 85027; 85610; 85730; 86850; 86900; 86901; 86920; 87081; 93005; 96361; 96374; 96375; 99285; A9270; C9113; G0378; J1815; J1940; J2704; J7030; J7040; J7050; P9016

== ENCOUNTER 2021-12-05 09:18 | Observation (INO) | payer MEDICARE, SELFPAY ==
[2021-12-05] VITALS (36 sets, daily range): BP systolic 109–168; BP diastolic 50–96; PULSE 81–147; RESP 14–26; TEMP 36.1–37.2; O2SAT 92–100; BMI 31.4
--- NOTE | ~2021-12-05 | CT_ITS ---
EXAMINATION: CT brain wo con DATE: 12/05/2021 10:16 INDICATION: Dizziness. Near syncope. TECHNIQUE: Computed tomography (CT) of the head was performed without intravenous contrast. The mA wa s adjusted according to patient size. Iterative reconstruction technique was employed. The dose-lengt h product was 605.33 mGy-cm. COMPARISON: Head CT 11/24/2021 FINDINGS: There are scattered areas of low attenuation in the cerebral white matter. There is no intr acranial hemorrhage, acute infarction, or abnormal intracranial mass lesion. The ventricles are bianca l in size. There are likely changes of ocular lens replacement surgeries. There is mild mucosal thick ening in the paranasal sinuses. The mastoid air cells are normal. IMPRESSION: 1. Stable mild nonspecific cerebral white matter disease, which likely represents chronic small vesse l ischemic disease. Reviewed, dictated and finalized at location A. IMPRESSION: 1. Stable mild nonspecific cerebral white matter disease, which likely represen ts chronic small vessel ischemic disease.
--- NOTE | ~2021-12-05 | XR_ITS ---
EXAMINATION: XR chest 2V DATE: 12/05/2021 10:24 INDICATION: Dizziness. TECHNIQUE: Frontal and lateral views of the chest were obtained. COMPARISON: Chest single view at 11/24/2021, CT abdomen and pelvis 11/24/2021 FINDINGS: The lung volumes are small. There are airspace opacities in right lower lung zone and left mid and lower lung zones. No pleural effusion or pneumothorax. The heart size is normal. There is a l eft chest wall pacer with leads in the right atrium and right ventricle. IMPRESSION: 1. Small lung volumes with airspace opacities in right lower lung zone and left mid and lower lung zo benjie with worsening on the left, consistent with atelectasis versus pneumonia. Reviewed, dictated and finalized at location A. IMPRESSION: 1. Small lung volumes with airspace opacities in right lower lung zone and left mid and lower lung zones with worsening on the left, consistent with atelectas is versus pneumonia.
--- NOTE | 2021-12-05 09:17 | ED.WEAKNESS ---
HPI - Weakness General Chief complaint: Dizziness Stated complaint: Hypotension History of Present Illness HPI Narrative: The patient is a 66-year-old male with a complex medical history, notable for stage V chronic kidney disease, recent fistula placement, BPH, anemia of chronic disease, congestive heart failure, hypertension, hyperlipidemia, type 2 diabetes, recent mission for GI bleeding, requiring blood transfusion, presenting to the emergency department for evaluation of dizziness and weakness following a near syncopal event this morning. The patient was ambulating to the car with the and home health care nurse when he began to feel dizzy. Patient was noted to be pale and diaphoretic by home health staff, and patient stated that he felt he was going to pass out. Patient then did fall forward, causing him to hit his head. No loss of consciousness. Patient denied any chest pain, palpitations but did report shortness of breath prior to the fall. Patient was noted to be hypotensive when EMS arrived on scene however after initial IV, 100 mL of fluids infused, patient blood pressure returned to normal and was 117/90 the time of assessment. Related Data Home Medications Medication Instructions Recorded Confirmed aspirin 81 mg tablet,delayed 81 mg PO DAILY 05/09/19 12/05/21 release (Adult Low Dose Aspirin) calcium acetate(phosphat bind) 667 667 mg PO TIDWM 08/15/21 12/05/21 mg capsule insulin aspart U-100 100 unit/mL 8 unit subcut TID PRN blood sugar 08/29/21 12/05/21 (3 mL) subcutaneous pen (Novolog Flexpen U-100 Insulin aspart) omega-3 fatty acids-vitamin E 2,000 cap PO DAILY 08/29/21 12/05/21 1,000 mg capsule allopurinol 100 mg tablet 100 mg PO DAILY 11/14/21 12/05/21 insulin degludec 200 unit/mL (3 65 unit subcut DAILY 11/24/21 12/05/21 mL) subcutaneous pen (Tresiba FlexTouch U-200 insulin) prednisolone acetate 1 % eye 1 drp ophthalmic (eye) BID 11/24/21 12/05/21 drops,suspension Adult One Daily Multivitamin 1 tab-cap PO DAILY 12/05/21 12/05/21 cholecalciferol (vitamin D3) 250 10,000 unit PO DAILY 12/05/21 12/05/21 mcg (10,000 unit) capsule furosemide 40 mg tablet (Lasix) 40 mg PO BID 12/05/21 12/05/21 losartan 50 mg tablet 50 mg PO DAILY 12/05/21 12/05/21 nitroglycerin 0.4 mg sublingual 0.4 mg sublingual Q5M PRN Chest 12/05/21 12/05/21 tablet Pain Allergies Allergy/AdvReac Type Severity Reaction Status Date / Time Iodinated Contrast Media Allergy Unknown Hives Verified 12/05/21 14:30 lisinopril AdvReac Cough Verified 12/05/21 14:30 Review of Systems Review of Systems: CONSTITUTIONAL: Denies fever, chills, or sweats. EYES: Denies visual changes, redness, or discharge. ENT: Denies rhinorrhea, congestion, sore throat, or otalgia. CARDIOVASCULAR: Denies chest pain, palpitations, or edema. RESPIRATORY: Denies cough or dyspnea. GASTROINTESTINAL: Denies abdominal pain, nausea, vomiting, or diarrhea. GENITOURINARY: Denies dysuria or hematuria. SKIN: Denies rash or itching. MUSCULOSKELETAL: Denies back pain, joint pain, or myalgia. NEUROLOGIC: Reports mild headache and diffuse weakness [facility] Past Medical History Medical History (Updated 12/05/21 @ 14:43 by Мария Lagos MD) Benign prostatic hyperplasia Chronic anemia Chronic obstructive pulmonary disease Coronary artery disease Catheterization and 2005 showed a chronically occluded RCA. In 2016 he had a drug-eluting stent to the proximal left anterior descending. Diastolic congestive heart failure Echocardiogram on 01/31/2021 showed normal LV systolic function with moderately increased LV wall thickness and grade 1 diastolic dysfunction with an EF estimated 55%. Duodenal ulcer (11/2021) Hyperlipidemia, unspecified Hypertension Insulin dependent type 2 diabetes mellitus Orthostasis Related to autonomic dysfunction from his diabetes. Stage 5 chronic kidney disease Surgical History Surgical History (Updated 12/05/21 @ 13:37 by Klever
--- NOTE | 2021-12-05 09:59 | ECG_ITS ---
Measurements Intervals [place] Rate: 83 P: 51 WV: 153 QRS: -18 QRSD: 98 T: -56 QT: 376 QTc: 443 Interpretive Statements SINUS RHYTHM INFERIOR MYOCARDIAL INFARCTION , OLD ABNORMAL ECG COMPARED TO ECG 11/24/2021 11:44:40 NO SIGNIFICANT CHANGES Electronically Signed On 12-06-2021 16:21:44 CDT by Ky Atkinson M.D.
[2021-12-05] MEDS: MECLIZINE HCL 25 MG TABLET PO (10:03)
[2021-12-05] MEDS: ONDANSETRON INJ 4 MG/2 ML VIAL IV PUSH ×2 (10:03→23:57)
[2021-12-05] MEDS: SODIUM CHLORIDE 0.9% IV 1,000 ML 999 ML IV CONT (10:03)
--- NOTE | 2021-12-05 10:10 | PC.NURSE ---
Patient off unit to CT.
--- NOTE | 2021-12-05 10:55 | PC.NURSE ---
Patient report given to BALJINDER Marquez. All questions answered and care of patient transferred.
[2021-12-05 10:59] LABS: Basophils Percent Auto 0.2 % (0.2-1.2); Immature Granulocyte Absolute 0.05 K/mm3 (0.00-0.031); Immature Granulocyte Percent A 0.6 % (0-0.5); Lymphocytes Absolute Auto 1.01 K/mm3 (0.9-3.2); Lymphocytes Percent Auto 12.1 % (18.3-44.2); Mean Corpuscular HGB Conc 31.8 g/dl (32-36); Mean Corpuscular Hemoglobin 31.1 pg (26-34); Mean Corpuscular Volume 97.7 fl (80-100); Mean Platelet Volume 10.4 fl (7.4-10.4); Monocytes Absolute Auto 0.9 K/mm3 (0.1-0.6); Monocytes Percent Auto 10.9 % (2.6-8.5); Neutrophils Absolute Auto 6.4 K/mm3 (1.3-6.7); Neutrophils Percent Auto 76.2 % (45.5-73.1); Platelet Count Result 214 k/mm3 (150-375); Red Blood Count 1.32 M/mm3 (4.6-6.20); Red Cell Distribution Width 15.1 % (11.5-14.5); White Blood Count 8.4 K/mm3 (4.5-10.0)
[2021-12-05 11:01] LABS: Hematocrit 12.9 % (42.0-52.0); Hemoglobin 4.1 g/dL (14.0-18.0)
[2021-12-05 11:08] LABS: Alanine Aminotransferase 25 U/L (6-50); Albumin Level 2.7 g/dL (3.5-5.1); Alkaline Phosphatase 74 U/L (38-126); Anion Gap 6 mmol/L (8-16); Aspartate Amino Transferase 28 U/L (17-59); Bilirubin,Total 0.5 mg/dL (0.2-1.3); Blood Urea Nitrogen 66 mg/dL (9-20); Calcium 6.8 mg/dL (8.4-10.2); Carbon Dioxide 21 mmol/L (22-30); Chloride 116 mmol/L (98-107); Estimated CRCL calculation 19 ml/min; Estimated Glomerular Filt Rate 14; Glucose 98 mg/dL (65-110); Potassium 4.2 mmol/L (3.4-5.0); Sodium 143 mmol/L (137-145)
[2021-12-05 11:25] LABS: Troponin I 0.125 ng/mL (0.000-0.034)
[2021-12-05] MEDS: PANTOPRAZOLE SODIUM IV 40 MG VIAL IV PUSH ×2 (13:01→21:17)
[2021-12-05 13:46] LABS: Immature Reticulocyte Fraction 17.1 % (3.0-15.9); Reticulocyte Hemoglobin Conten 27.2 pg (28.2-35.7); Reticulocyte Percent 1.91 % (0.7-4.3); Reticulocytes Absolute 0.02 B/L (32.2-175.7)
--- NOTE | 2021-12-05 14:00 | PM.IMHP ---
H&P: HPI History of Present Illness Date/Time: 12/05/21 13:45 Chief Complaint: Lightheadedness/dizziness. Narrative: This is [id number] male with hypertension, hyperlipidemia, coronary artery disease, congestive heart failure, chronic kidney disease, COPD, chronic kidney disease, orthostatic hypotension, and several other comorbidities who presented to the emergency department via EMS from home for evaluation of lightheadedness/dizziness. He is known to the hospitalist service with a recent admission between 11/24 and 11/27/2021 for symptomatic anemia, found to have evidence of a non bleeding duodenal ulcer on EGD. He has been in his chronic state of health since that time however he seems to be having increasing episodes of what sounds like orthostatic hypotension. He had a doctor's appointment this morning and when walking to the car he suddenly became lightheaded and fell forward, possibly striking his head on the concrete though he denies that to me however reported that to the ED physician. Emergency services were contacted and on EMS arrival he was hypotensive for which he was given IV fluid bolus and he was normotensive on arrival to the ER. Today he was once again found to be profoundly anemic with a hemoglobin and hematocrit of 4.1 and 12.9% respectively, and he is being admitted in this setting. At the time my evaluation he has no specific complaints. He does endorse shortness of breath with exertion. He has not noticed any dark stools. No headache, vertigo, focal weakness, or paresthesias. He denies chest pain. Review of Systems Review of Systems: Twelve systems were reviewed. He had an appointment today with the vascular surgeon who did his AV fistula last month. He has not yet started on dialysis. Reports approximately 3 lb weight gain in the last couple of days. Was previously on furosemide b.i.d. and metolazone, however is now just on Lasix once a day. Glucose has been tenuous and he is now wearing a continuous glucose monitor. In the last 24 hours he has had readings in the 70s and over 400. He has frequent loose stools, occasionally incontinent, and he wears depends. He has not noticed any dark stools or bright red blood in his stools. No vomiting. Hospitalized with COVID pneumonia this spring. Occasionally has a residual cough. No cold or flu symptoms. No fever, chills, or sweats. Except as documented, all other systems were reviewed and are negative. [facility] Past Medical History Medical History Benign prostatic hyperplasia Chronic anemia Chronic obstructive pulmonary disease Coronary artery disease Catheterization and 2005 showed a chronically occluded RCA. In 2016 he had a drug-eluting stent to the proximal left anterior descending. Diastolic congestive heart failure Echocardiogram on 01/31/2021 showed normal LV systolic function with moderately increased LV wall thickness and grade 1 diastolic dysfunction with an EF estimated 55%. Duodenal ulcer (11/2021) Hyperlipidemia, unspecified Hypertension Insulin dependent type 2 diabetes mellitus Orthostasis Related to autonomic dysfunction from his diabetes. Stage 5 chronic kidney disease Surgical History Surgical History History of ankle surgery Left History of esophagogastroduodenoscopy History of eye surgery Laser eye surgery. Status post cardiac pacemaker procedure His 1st pacemaker was placed in his 30s for sinus pause, syncope and bradycardia and he had generator changes in 2002, 2006, and 2011. His RV lead has high thresholds and he was not pacing in also it was turned off. Status post creation of arteriovenous fistula Status post insertion of drug-eluting stent into left anterior descending (LAD) artery for coronary artery disease Family History Family History Father Family history of premature coronary hear
[2021-12-05] MEDS: SODIUM CHLORIDE 0.9% IV 250 ML 30 ML IV CONT (14:18)
[2021-12-05] MEDS: TUBING, BLOOD PLUM PUMP TUBING 1 EACH XX ×2 (14:18→18:47)
--- NOTE | 2021-12-05 14:23 | ADMGEN ---
This patient, Freddie Valero, was admitted to IMU Room 201-01 @ 1400. Patient oriented to hospital policies and general routines including ID bracelet, bed and alarms, visiting hours, pain management, procedures, bathroom and other care routines, personal items, smoking policy, room service/diet, and visiting hours. Information on how to activate the Rapid Response Team has been discussed. Patient encouraged to report perceived risks to care and to ask questions if they do not understand what they are told or what they should do.
[2021-12-05 14:44] LABS: Lactate Dehydrogenase 671 U/L (313-618)
--- NOTE | 2021-12-05 14:56 | WPDGICN ---
Assessment and Plan Assessment and plan (1) Symptomatic anemia: Code(s): D64.9 - Anemia, unspecified Status: Acute Assessment and Plan: Patient with worsening in anemia with no evidence of GI bleeding. In fact stools are Hemoccult negative. I suspect patient has non GI blood loss anemia. Plan is for hematology consult I suspect he may benefit from Epogen given his history of chronic kidney disease. Plan to keep on PPI therapy because recent ulcer disease. (2) Chronic kidney disease: Code(s): N18.9 - Chronic kidney disease, unspecified Status: Acute Assessment and Plan: Nephrology follow-up suggested. (3) Duodenal ulcer: Code(s): K26.9 - Duodenal ulcer, unspecified as acute or chronic, without hemorrhage or perforation Status: Acute Plan Patient with recent non bleeding ulcer identified. Plan to continue pantoprazole 40 mg p.o. daily. GI Consult Note Consult date/time: 12/05/21 14:56 Reason for consult: Anemia HPI: Freddie Valero is a 66 year old male I am asked to see because of ongoing anemia. Patient has a history of chronic kidney disease. Hospitalized 2 weeks ago. Was found to have Hemoccult-positive stools at that time. An EGD revealed a non bleeding duodenal ulcer. At that time it was felt that chronic anemia in may have been exacerbated by bleeding from duodenal ulcer. Although no active bleeding was identified at that time. Patient has since been home now for 1 to 1-1/2 weeks. He denies any obvious blood in his stools. He denies abdominal pain. He has been tolerating diet well. Now on PPI therapy. He presented back to the hospital once again with profound anemia. So stools are Hemoccult negative at this point. Review of Systems Review of Systems: Noncontributory. [facility] Past Medical History Medical History (Updated 12/05/21 @ 14:43 by Мария Lagos MD) Benign prostatic hyperplasia Chronic anemia Chronic obstructive pulmonary disease Coronary artery disease Catheterization and 2005 showed a chronically occluded RCA. In 2016 he had a drug-eluting stent to the proximal left anterior descending. Diastolic congestive heart failure Echocardiogram on 01/31/2021 showed normal LV systolic function with moderately increased LV wall thickness and grade 1 diastolic dysfunction with an EF estimated 55%. Duodenal ulcer (11/2021) Hyperlipidemia, unspecified Hypertension Insulin dependent type 2 diabetes mellitus Orthostasis Related to autonomic dysfunction from his diabetes. Stage 5 chronic kidney disease Surgical History Surgical History (Updated 12/05/21 @ 13:37 by Paulette Savage PA-C) History of ankle surgery Left History of esophagogastroduodenoscopy History of eye surgery Laser eye surgery. Status post cardiac pacemaker procedure His 1st pacemaker was placed in his 30s for sinus pause, syncope and bradycardia and he had generator changes in 2002, 2006, and 2011. His RV lead has high thresholds and he was not pacing in also it was turned off. 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 Smoked briefly as a teen. No alcohol or illicit substance abuse. Surrogate decision maker: Lidia Morris, daughter. Code status: Full code. Alcohol i
[2021-12-05 15:52] LABS: Folic Acid > 20.0 ng/mL (2.76->20)
[2021-12-05 16:05] LABS: Troponin I 0.119 ng/mL (0.000-0.034)
[2021-12-05 16:15] LABS: Glucose Point of Care 62 mg/dl (65-105)
[2021-12-05] MEDS: DEXTROSE 50% 25 GM/50 ML SYRINGE IV PUSH (16:42)
[2021-12-05 16:50] LABS: Iron 19 ug/dL (49-181)
[2021-12-05 17:00] LABS: Percent Iron Saturation 5 % (20-50)
[2021-12-05 17:00] LABS: Transferrin 241 mg/dL (206-381)
[2021-12-05 17:16] LABS: Glucose Point of Care 54 mg/dl (65-105)
[2021-12-05 17:16] LABS: Glucose Point of Care 112 mg/dl (65-105)
--- NOTE | 2021-12-05 17:50 | PM.CNNEP ---
Assessment and Plan Additional Plan 1. Freddie has chronic kidney disease. This is due to hypertension and diabetes. He is approaching dialysis but not quite there yet. He has a fistula which is maturing. It has a good thrill and bruit. his BUN and creatinine are at his baseline. His GFR is 14. He does not have any uremic symptoms right now. Most of his symptoms are due to his anemia plus GI issues. 2. The patient has Severe anemia. He does have chronic kidney disease and does have a low GFR and probably has low EPO dose but his hemoglobin should not have dropped from 7-4 in just 10 days because of poor production. It is possible that the transfused blood has a shorter life time but is also possible that he continues to have some bleeding from his intestines. GI has been consulted to evaluate him for this. His iron saturation was low last admission. Will continue to give him iron while he is here. I will also order Epogen while he is here. We will have Dr. Olivia see the patient in consultation so that he can continue Epogen as an outpatient. 3. The patient has hypertension. His blood pressure is rising as he gets some blood. He is getting carvedilol. I do not think we need to start losartan right now. if his blood pressure rises more we can use amlodipine. 4. The patient has history of volume overload. Will continue the furosemide but would just give it once a day. 5. The patient has coronary disease. No chest pain. Troponins are slightly elevated. Hospitalists to follow this. 6. the patient has diabetes. on Accu-Cheks and sliding scale insulin per hospitalists. History of Present Illness Reason for Consult Consult date: 12/05/21 Chief Complaint Chief complaint: Symptomatic Anemia, CKD History of Present Illness Narrative: Freddie is a very pleasant 66-year-old gentleman who has hypertension, diabetes, chronic kidney disease with a baseline GFR of about 14, hyperlipidemia, coronary artery disease, congestive heart failure, COPD, anemia, renal osteodystrophy, duodenal ulcer diagnosed recently. Month ago or so the patient's blood pressure started dropping and so went to see his primary care physician who decreased his blood pressure meds and eventually almost stop them. He went into the hospital because blood pressure was still low and he was dizzy and was found to have anemia. He was given blood transfusions and was seen by GI. Scope was done and this showed an ulcer. The patient was given PPI eyes. His hemoglobin was relatively stable and so he was discharged. His BUN was very high during that hospital stay but his creatinine was stable. The high BUN was ascribed to the blood in the gut and also probably dehydration since he has not been eating that well and he continued to take his diuretics. So diuretics were held and with resolution of the blood in his get his numbers improved. I told him on the day of discharge to not take diuretics for couple of days and then restart the medicine and check some blood work in a few days after that. The patient says that he never really recovered after the hospital stay. He stayed fairly weak and was somewhat sedentary since the last stay. Over for the last couple of days the patient was a little bit weaker. This morning he was going to get in the car to go see this surgeon about his fistula and he Developed lightheadedness and fell forward. His order analyst came out to help him and called 911 he was brought over to the ER. He was evaluated in the ER and found to have a hemoglobin of 4. He was admitted. He was typed and crossed and is getting some blood now. He says that he has not seen black stools or bloody stools. His stool color is brown. He has not had any nausea or vomiting although he has not had a very good appetite. He has not had any belly pain. No chest pain or shortness of breath. He says that his swelling is coming back a little bit but no
[2021-12-05] MEDS: FUROSEMIDE 40 MG TABLET PO (17:53)
[2021-12-05] MEDS: prednisoLONE ACETATE 1% OPHTH 5 ML 1 DROP EACH EYE (17:54)
[2021-12-05] MEDS: CALCIUM ACETATE 667 MG TABLET PO (17:54)
[2021-12-05 18:45] LABS: Troponin I 0.121 ng/mL (0.000-0.034)
[2021-12-05] MEDS: SODIUM CHLORIDE 0.9% IV 250 ML 30 ML (18:46)
[2021-12-05 20:06] LABS: Glucose Point of Care 157 mg/dl (65-105)
[2021-12-05] MEDS: EPOETIN ALFA 10,000 UNITS/ML VIAL 10000 UNITS SUB-Q (21:16)
[2021-12-05] MEDS: carvediloL 12.5 MG TABLET PO (21:17)
[2021-12-05 22:59] LABS: Hematocrit 25.5 % (42.0-52.0); Hemoglobin 8.1 g/dL (14.0-18.0)
[2021-12-05] MEDS: FUROSEMIDE INJ 40 MG/4 ML VIAL 20 MG IV PUSH (23:54)
[2021-12-06] VITALS (18 sets, daily range): BP systolic 100–157; BP diastolic 45–68; PULSE 77–86; RESP 18–24; TEMP 36.4–37.1; O2SAT 90–97
[2021-12-06 04:36] LABS: Hematocrit 26.4 % (42.0-52.0); Hemoglobin 8.4 g/dL (14.0-18.0); Mean Corpuscular HGB Conc 31.8 g/dl (32-36); Mean Corpuscular Hemoglobin 30.3 pg (26-34); Mean Corpuscular Volume 95.3 fl (80-100); Mean Platelet Volume 10.4 fl (7.4-10.4); Platelet Count Result 214 k/mm3 (150-375); Red Blood Count 2.77 M/mm3 (4.6-6.20); Red Cell Distribution Width 15.8 % (11.5-14.5); White Blood Count 7.1 K/mm3 (4.5-10.0)
[2021-12-06 04:49] LABS: Albumin Level 2.8 g/dL (3.5-5.1); Anion Gap 8 mmol/L (8-16); Blood Urea Nitrogen 70 mg/dL (9-20); Calcium 7.4 mg/dL (8.4-10.2); Carbon Dioxide 20 mmol/L (22-30); Chloride 114 mmol/L (98-107); Estimated CRCL calculation 17 ml/min; Estimated Glomerular Filt Rate 12; Glucose 73 mg/dL (65-110); Phosphorus 6.4 mg/dL (2.5-4.5); Potassium 4.4 mmol/L (3.4-5.0); Sodium 142 mmol/L (137-145)
[2021-12-06 04:51] LABS: Magnesium 1.8 mg/dL (1.6-2.3)
--- NOTE | 2021-12-06 08:10 | PM.IMPN ---
Progress Note: A&P Assessment and Plan (1) Near syncope: Code(s): R55 - Syncope and collapse Status: Acute Assessment and Plan: Orthostatics are positive. Also is nearing the need for hemodialysis and these patient frequently have autonomic dysfunction. Likely 2/2 to symptomatic anemia. Transfused 2 units with appropriate response. Patient appears clinically improved as he stood during my exam without issue. -Echo -Tranfuses as needed -Trend H/H q8h -Appreciate recommendations from GI -PPI BID (2) Symptomatic anemia: Code(s): D64.9 - Anemia, unspecified Status: Acute Assessment and Plan: Transfused 2 units PRBCs and is feeling much better. Gastroenterology has been consulted. -PPI BID -Trend H/H q8h (3) Elevated troponin: Code(s): R77.8 - Other specified abnormalities of plasma proteins Status: Acute Assessment and Plan: Elevated in the setting of symptomatic anemia and a new ESRD patient pending start of hemodialysis. Patient has no chest pain and troponin are low than the last time he was in the hospital on 11/24/21. Will defer Cardiology consult for now. (4) Stage 5 chronic kidney disease: Code(s): N18.5 - Chronic kidney disease, stage 5 Status: Acute Assessment and Plan: [facility]. Nephrology consulted. Appreciate recommendations. (5) Metabolic acidosis: Code(s): E87.2 - Acidosis Status: Acute Assessment and Plan: Likely due to renal failure. Asymptomatic. Will monitor. (6) Insulin dependent type 2 diabetes mellitus: Code(s): E11.9 - Type 2 diabetes mellitus without complications; Z79.4 - long term care pharmacist (current) use of insulin Status: Acute Assessment and Plan: Continue home insulin. (7) Hypertension: Code(s): I10 - Essential (primary) hypertension Status: Chronic Assessment and Plan: On carvedilol at home. Continue. (8) Hyperlipidemia, unspecified: Code(s): E78.5 - Hyperlipidemia, unspecified Status: Acute Assessment and Plan: Takes atorvastatin at home. Continue. (9) Coronary artery disease: Qualifiers: Coronary Disease-Associated Artery/Lesion type: [place] artery [place] vs. transplanted heart: [place] heart Associated angina: without angina Qualified Code(s): I25.10 - Atherosclerotic heart disease of [place] coronary artery without angina pectoris Code(s): I25.10 - Atherosclerotic heart disease of [place] coronary artery without angina pectoris Status: Acute Assessment and Plan: ASA & plavix held due to acute blood loss. Continue statin and bb. Subjective Date/time seen: 12/06/21 08:10 Patient says he has not been having any dark or bloody stools since discharge from the hospital. Says he previously had dark, tarry stools prior to last hospitalization. Says he was staggering and a family member called an ambulance, which is why he came to he ED. Denies chest pain or shortness of breath. Review of Systems Cardiovascular: Cardiovascular: Denies chest pain Respiratory: Respiratory: Denies dyspnea Gastrointestinal: Gastrointestinal: Denies melena and Denies hematochezia Exam Narrative: GENERAL: NAD, cooperative HEENT: Normocephalic, atraumatic, anicteric NECK: Supple CV: Normal S1, S2, RRR, No MRG RESP: CTAB, Normal work of breathing. Abdomen: Soft, non-tender, non-distended, +BS EXTREMITIES: Warm and well perfused, no clubbing, cyanosis, or edema. RUE AVF w/ bruit & thrill. SKIN: warm, dry and intact. NEURO: CN 2-12 grossly intact. Objective Data Vital Signs Vital Signs: Vital Signs - 24 hr 12/05/21 09:18 12/05/21 09:28 12/05/21 09:30 Temperature 98.1 F Pulse Rate 85 84 81 Respiratory Rate 21 H 26 H 21 H Blood Pressure 117/96 H Pulse Oximetry 100 100 98 Oxygen Delivery Room Air 12/05/21 09:31 12/05/21 09:45 12/05/21 10:25 Temperature
[2021-12-06 08:13] LABS: Glucose Point of Care 65 mg/dl (65-105)
[2021-12-06 08:21] LABS: Glucose Point of Care 119 mg/dl (65-105)
[2021-12-06] MEDS: IRON SUCROSE COMPLEX 200 MG in SODIUM CHLORIDE 0.9% IV 50 ML 120 MG IVPB (09:36)
[2021-12-06] MEDS: PANTOPRAZOLE SODIUM IV 40 MG VIAL IV PUSH ×2 (09:41→21:25)
[2021-12-06] MEDS: CALCIUM ACETATE 667 MG TABLET PO ×3 (09:42→18:14)
[2021-12-06] MEDS: prednisoLONE ACETATE 1% OPHTH 5 ML 1 DROP EACH EYE ×2 (09:42→18:14)
[2021-12-06] MEDS: OMEGA 3 POLYUNSAT FATTY ACIDS 1 GM CAP 2 GM PO (09:42)
[2021-12-06] MEDS: carvediloL 12.5 MG TABLET PO ×2 (09:43→21:25)
[2021-12-06] MEDS: MULTIVITAMINS THERAPEUTIC TAB (*BKC) 1 TABLET PO (09:43)
[2021-12-06] MEDS: allopurinoL 100 MG TABLET PO (09:44)
[2021-12-06] MEDS: FUROSEMIDE 40 MG TABLET PO (09:44)
[2021-12-06] MEDS: ATORVASTATIN 40 MG TABLET 80 MG PO (09:44)
[2021-12-06] MEDS: EZETIMIBE 10 MG TABLET PO (09:44)
[2021-12-06] MEDS: TAMSULOSIN HCL 0.4 MG CAPSULE PO (09:45)
--- NOTE | 2021-12-06 11:44 | PM.PNNEP ---
Progress Note: A&P Assessment and Plan (1) Chronic kidney disease (CKD), stage V: Code(s): N18.5 - Chronic kidney disease, stage 5 Status: Chronic Assessment and Plan: baseline creatinine has been running ~ 4.0 - 4.3mg/dl due to diabetes, hypertension, and age-related change electrolytes and volume status at this time with no evidence of uremia so no need for urgent dialyis at this time AVF in place continue lasix therapy (since has history of volume overload) (2) Anemia: Code(s): D64.9 - Anemia, unspecified Status: Chronic Assessment and Plan: s/p PRBC transfusion previous anemia studies with iron deficiency getting IV venofer and Epogen while hospitalized suspect will need SLY (Epogen or Aranesp) as an outpatient as well Hem/Onc consulted for outpatient SLY therapy GI recommendations noted (3) Duodenal ulcer: Code(s): K26.9 - Duodenal ulcer, unspecified as acute or chronic, without hemorrhage or perforation Status: Acute Assessment and Plan: this was identified ~ 2 weeks ago on previous hospitalization here at [facility] remains on PPI therapy (4) Hypertension: Code(s): I10 - Essential (primary) hypertension Status: Chronic Assessment and Plan: reasonable control at this time follow trend of hemodynamics (5) Diabetes: Code(s): E11.9 - Type 2 diabetes mellitus without complications Status: Acute Assessment and Plan: follow accuchecks on Lantus and SSI Will continue to follow. Subjective Date/time seen: 12/06/21 11:44 Chart reviewed -- assuming care from Dr. Paiz; no apparent issues or problems to report at this time; denies and nausea, vomiting, or abdominal pain; tolerated PRBC transfusions since admission; no acute distress noted; no events overnight or earlier this AM. Exam Narrative: General: WD/WN male in NAD Heart: normal S1 and S2; no rub Lungs: decreased at bases Abdomen: soft, nontender, nondistended, positive bowel sounds Extremities: no cyanosis or clubbing; no edema Skin: warm and dry Objective Data Vital Signs Vital Signs: Vital Signs Temp Pulse Resp BP Pulse Ox O2 Del Method 12/06/21 10:00 80 12/06/21 08:00 Room Air 12/06/21 08:00 86 12/06/21 09:43 82 12/06/21 08:00 36.9 C 84 20 157/68 H 94 12/06/21 05:37 84 12/06/21 04:00 36.7 C 80 18 100/67 96 12/06/21 04:00 84 20 94 Room Air 12/06/21 04:00 84 12/06/21 02:00 84 12/06/21 00:00 86 20 94 Room Air 12/06/21 00:00 86 12/05/21 23:30 36.7 C 94 20 120/50 L 94 12/05/21 22:00 90 12/05/21 20:00 87 20 98 Room Air 12/05/21 20:00 37.1 C 87 20 112/62 98 12/05/21 20:00 87 12/05/21 21:30 37.1 C 101 H 20 112/62 98 12/05/21 21:17 101 H 12/05/21 21:08 36.8 C 89 18 109/63 92 12/05/21 20:08 36.6 C 82 18 120/60 97 12/05/21 19:08 36.6 C 88 20 116/53 L 93 12/05/21 20:00 36.6 C 88 20 116/53 L 93 12/05/21 19:08 37.2 C 87 20 143/60 H 100 12/05/21 19:05 37.2 C 87 20 143/60 H 100 12/05/21 18:52 37.2 C 147 H 18 147/66 H 100 12/05/21 18:49 37.2 C 89 18 147/66 H 100 12/05/21 18:00 36.6 C 93 20 125/74 94 Intake/Output Intake/Output: Intake & Output 12/03/21 12/04/21 12/05/21 12/06/21 23:59 23:59 23:59 23:59 Intake Total 2019 1520 Output Total 700 1350 Balance 1320 170 Meds/Results Medications: Active Medications Generic Name Dose Route Start Last Admin Trade Name Freq PRN Reason Stop Dose Admin Acetaminophen 650 mg 12/05/21 12:55 Acetaminophen 325 Mg Tablet PO Q4H PRN Mild Pain (1-3) or Fever Albuterol 2.5 mg 12/05/21 15:51 Albuterol Sulfate Neb 2.5 Mg/3 Ml Inh INHALATION Q6H PRN shortness of breath or wheezing Allopurinol 100 mg 12/06/21 09:00 12/06/21 09:44 Allopurinol 100
[2021-12-06 11:51] LABS: Glucose Point of Care 86 mg/dl (65-105)
--- NOTE | 2021-12-06 12:00 | WPDGIPROGNO ---
Progress Note: A&P Assessment and Plan (1) Anemia: Code(s): D64.9 - Anemia, unspecified Status: Chronic Assessment and Plan: A patient with ongoing a knee yet. No obvious signs of GI blood loss. Had a non bleeding duodenal ulcer identified week and half ago. Now on therapy for ulcer. Stools are Hemoccult negative. Patient continues to be quite anemic. Hematology to see I suspect he is anemic primarily on the basis of kidney disease. Epogen may be required. Plan to continue therapy for ulcer disease. As patient has a history of colon polyps 3 years ago. Will plan elective outpatient colonoscopy. Stools remain heme negative at present. (2) Chronic kidney disease: Code(s): N18.9 - Chronic kidney disease, unspecified Status: Acute Assessment and Plan: Chronic kidney disease from hypertension and diabetes. Patient getting close to requiring dialysis. Suspect this is major cause of chronic anemia. No signs of acute blood loss. In spite of having an ulcer. (3) Insulin dependent type 2 diabetes mellitus: Code(s): E11.9 - Type 2 diabetes mellitus without complications; Z79.4 - long-term (current) use of insulin Status: Acute (4) Duodenal ulcer: Code(s): K26.9 - Duodenal ulcer, unspecified as acute or chronic, without hemorrhage or perforation Status: Acute Assessment and Plan: Duodenal ulcer identified a week and half ago potentially could have bled previously. No recent bleeding. Patient now on PPI therapy. Plan to continue to avoid NSAIDs. Continue PPI therapy indefinitely but at least for 2 months to allow healing. (5) History of colon polyps: Code(s): Z86.010 - Personal history of colonic polyps Status: Acute Assessment and Plan: Patient has a prior history of benign colon polyps. Most recent endoscopy 2018. Plan follow-up elective colonoscopy this can be performed as an outpatient. Just as a precaution to make sure there is no other lower GI contributing causes to anemia. Subjective Date/time seen: 12/06/21 12:00 Patient alert comfortable this morning. Denies abdominal pain no obvious bleeding. Tolerating diet. Review of Systems Review of Systems: Review of systems noncontributory. Exam Narrative: Physical exam reveals patient be alert comfortable at rest. Vital signs stable. HEENT exam reveals no icterus. Lungs are clear. Heart without murmur. Abdomen bowel sounds present soft nontender with no organomegaly. Objective Data Vital Signs Vital Signs: Vital Signs - 24 hr 12/05/21 12:45 12/05/21 14:46 12/05/21 14:25 Temperature 97.9 F 97.7 F Pulse Rate 89 86 86 Respiratory Rate 21 H 20 20 Blood Pressure 138/72 132/58 L 132/58 L Pulse Oximetry 99 97 97 Oxygen Delivery 12/05/21 15:06 12/05/21 16:06 12/05/21 16:25 Temperature 98 F 96.9 F L 96.9 F L Pulse Rate 84 89 89 Respiratory Rate 20 20 20 Blood Pressure 160/64 H 168/72 H 168/72 H Pulse Oximetry 97 93 93 Oxygen Delivery 12/05/21 17:06 12/05/21 18:00 12/05/21 18:49 Temperature 98.4 F 97.8 F 99 F Pulse Rate 90 93 89 Respiratory Rate 20 20 18 Blood Pressure 157/75 H 125/74 147/66 H Pulse Oximetry 94 94 100 Oxygen Delivery 12/05/21 18:52 12/05/21 19:05 12/05/21 19:08 Temperature 99 F 99 F 99 F Pulse Rate 147 H 87 87 Respiratory Rate 18 20 20 Blood Pressure 147/66 H 143/60 H 143/60 H Pulse Oximetry 100 100 100 Oxygen Delivery 12/05/21 14:00 12/05/21 16:00 12/05/21 20:00 Temperature 97.8 F Pulse Rate 89 87 88 Respiratory Rate 20 Blood Pressure 116/53 L Pulse Oximetry 93 Oxygen Delivery 12/05/21 19:08 12/05/21 20:08 12/05/21 21:08 Temperature 97.8 F 97.8 F 98.3 F Pulse Rate 88 82 89 Respiratory Rate 20 18 18 Blood Pressure 116/53 L 120/60 109/63 Pulse Oximetry 93 97 92 Oxygen Delivery 12/05/21 21:17 12/05/21 21:30 12/05/21 20:00 Temperature 98.8 F Pulse Rate 101 H 101 H 87 Respira
[2021-12-06] MEDS: SILVERGEL (ELTA) 45 ML 1 APPLIC TOPICAL (12:08)
[2021-12-06 16:38] LABS: Glucose Point of Care 121 mg/dl (65-105)
--- NOTE | 2021-12-06 18:21 | PDONCCN ---
HPI - Date of Consult Date/Time: 12/06/21 18:21 Requesting Physician: Christina Silver MD Primary Care Provider: Kishore Rosario, DO - Consult Narrative Reason for consult: Multifactorial anemia Narrative: Freddie Valero is a 66 year old male with history of chronic kidney disease, COPD, congestive heart failure, coronary artery disease and hypertension. He has been on Plavix and aspirin for last 2 years duration. Patient was started on Brilinta after coronary stent placement 4 years ago. He was admitted to the hospital recently on November 24 until November 27 with symptomatic anemia and found to have nonbleeding duodenal ulcer on the EGD. He came back into the ER with lightheadedness and dizziness along with extreme tiredness and fatigue. Labs showed hemoglobin of 4.1. He denies any melena hematochezia. He denies any hematuria. He denies being a vegetarian. She also denies any previous history of stomach surgeries. Patient received 2 units of packed red blood cell. His kidney function has declined. He has a fistula placement per the dialysis which he has not started yet. Review of Systems - Review of Systems All systems reviewed & are unremarkable except as noted in HPI and bel - Neurologic Reports system reviewed and no additional complaints, except as documented PMFSH Medical History: Medical History (Last Reviewed 12/05/21 @ 17:56 by Shahzad Paiz MD) Benign prostatic hyperplasia Chronic anemia Chronic obstructive pulmonary disease Coronary artery disease Catheterization and 2006 showed a chronically occluded RCA. In 2017 he had a drug-eluting stent to the proximal left anterior descending. Diastolic congestive heart failure Echocardiogram on 01/31/2021 showed normal LV systolic function with moderately increased LV wall thickness and grade 1 diastolic dysfunction with an EF estimated 55%. Duodenal ulcer Onset Date: 11/2021 Hyperlipidemia, unspecified Hypertension Insulin dependent type 2 diabetes mellitus Orthostasis Related to autonomic dysfunction from his diabetes. Stage 5 chronic kidney disease Surgical History: Surgical History (Last Reviewed 12/05/21 @ 17:56 by Shahzad Paiz MD) History of ankle surgery Left History of esophagogastroduodenoscopy History of eye surgery Laser eye surgery. Status post cardiac pacemaker procedure His 1st pacemaker was placed in his 30s for sinus pause, syncope and bradycardia and he had generator changes in 2002, 2006, and 2011. His RV lead has high thresholds and he was not pacing in also it was turned off. Status post creation of arteriovenous fistula Status post insertion of drug-eluting stent into left anterior descending (LAD) artery for coronary artery disease Family History: Family History (Last Reviewed 12/05/21 @ 17:56 by Shahzad Paiz MD) Father Family history of premature coronary heart disease, Onset Age: 53 Cerebrovascular accident Patient's father is Diabetes mellitus Hypertension Family history of cardiovascular disease Sibling Carcinoma of colon, Onset Age: 39 Mother Patient's mother is , Onset Age: 73 - Social History Social History: Social History (Last Reviewed 12/05/21 @ 17:56 by Shahzad Paiz MD) Alcohol Use: Alcohol intake: never Substance Use: Substance use: never Others: Spiritual care concerns: No Living Arrangements: Living arrangements: with family Smoking Status: Smoking status: Never smoker Comments: Additional smoking assessment comments: Smoked briefly as a teenager. Meds Home Medications Medication Instructions Recorded Confirmed Type aspirin 81 mg tablet,delayed 81 mg PO DAILY 05/09/19 12/05/21 History release (Adult Low Dose Aspirin) atorvastatin 80 mg tablet 80 mg PO DAILY #90 tabs 05/20/21 12/05/21 Rx calcium acetate(phosphat bind) 667 667 mg PO TIDWM 08/15/21 12/05/21 History mg capsule c
[2021-12-06 19:29] LABS: Hematocrit 25.1 % (42.0-52.0); Hemoglobin 7.9 g/dL (14.0-18.0)
[2021-12-06 19:58] LABS: Glucose Point of Care 140 mg/dl (65-105)
[2021-12-06 22:45] LABS: Glucose Point of Care 116 mg/dl (65-105)
[2021-12-07] VITALS (7 sets, daily range): BP systolic 107–147; BP diastolic 50–86; PULSE 78–85; RESP 18; TEMP 36.6–36.7; O2SAT 93–96
--- NOTE | 2021-12-07 | ECHO_ITS ---
Patient Info Name: Freddie Valero Age: 66 years : 1955 Gender: Male Ht: 71 in Wt: 225 lbs BSA: 2.29 m2 HR: 84 bpm BP: 108 / 50 mmHg Heart Rhythm: Sinus Rhythm Technical Quality: Fair Exam Date: 12/07/2021 7:09 AM Exam Location: [facility] Patient Status: Inpatient Admit Date: 12/05/2021 Staff Ordering Physician: Christina Silver MD Convenience Store Manager: Fransisca Saldana RDCS Attending Provider: Christina Silver MD Referring Physician: Adrianne HUMPHREY; Exam Type: CA echo dop color flow w con Study Info Indications R55 - Syncope and collapse Complete two-dimensional, color flow and Doppler transthoracic echocardiogram is performed with contrast to opacify the left ventricle and to improve the deliniation of the left ventricle endocardial borders. Contrast/Agitated Saline Contrast/Ag. Saline: Definity Amount: 4.00 ml Summary 1. Technically difficult exam requiring definity contrast injection. 2. Normal global left ventricular systolic function with hypokinesis of the posterior segment. 3. Left atrial enlargement. 4. Mild aortic sclerosis without stenosis. 5. Pacemaker lead noted. Left Ventricle Left ventricular chamber dimension is normal. Left ventricular systolic function is normal, estimated at 60-65%. There is mild concentric increased left ventricular wall thickness. The left ventricular diastolic function is grade I diastolic dysfunction. Right Ventricle Right ventricular chamber dimension is normal. Left Atria Left atrial chamber dimension is mildly enlarged. Right Atria Right atrial chamber dimension is normal. Aortic Valve The aortic valve is trileaflet. There is mild aortic valve sclerosis. There is no aortic valve stenosis. Pulmonic Valve The pulmonic valve is not well visualized. Mitral Valve The mitral valve has normal leaflets. Tricuspid Valve The tricuspid valve leaflets are normal. Pericardium/Pleural The pericardium appears normal. Aorta The aortic root size at the sinus of Valsalva is normal. Left Ventricular Outflow Tract Name Value Normal LVOT 2D LVOT Diameter 2.22 cm LVOT Doppler LVOT Peak Gradient 5 mmHg LVOT Mean Gradient 2 mmHg LVOT VTI 25.08 cm LVOT VTI/AV VTI Ratio 0.76 LVOT Stroke Volume 96.71 ml LVOT CO 7.01 l/min LVOT CI 3.06 L/min/m2 Pulmonic Valve Name Value Normal PV Doppler PV Peak Gradient 3 mmHg Mitral Valve Name Value Normal MV D
[2021-12-07] MEDS: PERFLUTREN LIPID MICROSPHERES 1.5 ML VIAL DILUTED TO 10 ML TOTAL VOLUME IV PUSH (07:09)
--- NOTE | 2021-12-07 07:32 | PC.NURSE ---
No morning labs have been ordered. Called Dr. Silver and notified her. Spoke with her regarding patients HGB and asked her to please put orders in bakari to check patients decreasing HGB.
--- NOTE | 2021-12-07 07:48 | PM.IMPN ---
Subjective Date/time seen: 12/07/21 07:48 Objective Data Vital Signs Vital Signs: Vital Signs - 24 hr 12/06/21 08:00 12/06/21 09:43 12/06/21 08:00 Temperature 98.5 F Pulse Rate 84 82 86 Respiratory Rate 20 Blood Pressure 157/68 H Pulse Oximetry 94 Oxygen Delivery 12/06/21 08:00 12/06/21 10:00 12/06/21 08:33 Temperature Pulse Rate 80 Respiratory Rate Blood Pressure 131/58 L Pulse Oximetry Oxygen Delivery Room Air 12/06/21 08:35 12/06/21 08:37 12/06/21 12:00 Temperature Pulse Rate Respiratory Rate Blood Pressure 138/63 119/47 L Pulse Oximetry Oxygen Delivery Room Air 12/06/21 12:00 12/06/21 12:00 12/06/21 14:00 Temperature 97.7 F Pulse Rate 81 80 79 Respiratory Rate 24 H Blood Pressure 140/64 Pulse Oximetry 96 Oxygen Delivery 12/06/21 16:00 12/06/21 16:00 12/06/21 16:00 Temperature 98.7 F Pulse Rate 78 77 Respiratory Rate 20 Blood Pressure 132/60 Pulse Oximetry 90 Oxygen Delivery Room Air 12/06/21 18:00 12/06/21 19:59 12/06/21 20:00 Temperature 97.8 F Pulse Rate 80 82 Respiratory Rate 20 Blood Pressure 145/63 H 145/63 H Pulse Oximetry 97 Oxygen Delivery 12/06/21 20:00 12/06/21 20:00 12/06/21 21:25 Temperature Pulse Rate 83 Respiratory Rate Blood Pressure 147/61 H 120/51 L Pulse Oximetry Oxygen Delivery 12/06/21 20:00 12/06/21 22:55 12/06/21 20:00 Temperature 97.6 F Pulse Rate 83 82 Respiratory Rate 20 Blood Pressure 120/45 L Pulse Oximetry 96 Oxygen Delivery Room Air 12/07/21 00:00 12/07/21 04:00 12/07/21 04:00 Temperature 97.9 F Pulse Rate 79 81 85 Respiratory Rate 18 Blood Pressure 108/50 L Pulse Oximetry 96 Oxygen Delivery Intake/Output Intake/Output: Intake & Output 12/04/21 12/05/21 12/06/21 12/07/21 23:59 23:59 23:59 23:59 Intake Total 2020 1820 400 Output Total 700 1700 600 Balance 1320 120 -200 Meds/Results Medications: Active Medications Generic Name Dose Route Start Last Admin Trade Name Freq PRN Reason Stop Dose Admin Acetaminophen 650 mg 12/05/21 12:55 Acetaminophen 325 Mg Tablet PO Q4H PRN Mild Pain (1-3) or Fever Albuterol 2.5 mg 12/05/21 15:51 Albuterol Sulfate Neb 2.5 Mg/3 Ml Inh INHALATION Q6H PRN shortness of breath or wheezing Allopurinol 100 mg 12/06/21 09:00 12/06/21 09:44 Allopurinol 100 Mg Tablet PO 100 mg DAILY MADIE Administration Atorvastatin Calcium 80 mg 12/06/21 09:00 12/06/21 09:44 Atorvastatin 40 Mg Tablet PO 80 mg DAILY MADIE Administration Calcium Acetate 667 mg 12/05/21 17:00 12/06/21 18:14 Calcium Acetate 667 Mg Tablet PO 667 mg TIDWM MADIE Administration Carvedilol 12.5 mg 12/05/21 21:00 12/06/21 21:25 Carvedilol 12.5 Mg Tablet PO 12.5 mg Q12HR MADIE Administration Dextrose 12.5 gm 12/05/21 13:47 12/05/21 16:42 Dextrose 50% 25 Gm/50 Ml Syringe IV PUSH 12.5 gm PRN PRN Administration Hypoglycemia Protocol Ezetimibe 10 mg 12/06/21 09:00 12/06/21 09:44 Ezetimibe 10 Mg Tablet PO 10 mg DAILY MADIE Administration Epoetin Patel 10,000 units 12/05/21 21:00 12/05/21 21:16 Epoetin Patel 10,000 Units/Ml Vial SUB-Q 10,000 units TUTHSA MADIE Administration Fish Oil 2 gm 12/06/21 09:00 12/06/21 09:42 [place] 3 Polyunsat Fatty Acids 1 Gm Cap PO 2 gm DAILY MADIE Administration Furosemide 40 mg 12/06/21 09:00 12/06/21 09:44 Furosemide 40 Mg Tablet PO 40 mg DAILY MADIE Administration Glucagon 1 mg 12/05/21 13:47 Glucagon For Inj 1 Mg Vial IM PRN PRN Hypoglycemia Protocol Glucose 15 gm 12/05/21 13:47 Glucose Oral Gel 15 Gm Of Glucse In 37.5 Gm Tube PO PRN PRN Hypoglycemia Protocol Dextrose 1,000 mls @ 100 mls/hr 12/05/21 13:47 Dextrose 5% 1,000 Ml IVPB PRN PRN Hypoglycemia Protocol Iron Sucrose 200 mg/ So
[2021-12-07 08:23] LABS: Basophils Percent Auto 0.4 % (0.2-1.2); Hematocrit 28.9 % (42.0-52.0); Hemoglobin 9.3 g/dL (14.0-18.0); Immature Granulocyte Absolute 0.03 K/mm3 (0.00-0.031); Immature Granulocyte Percent A 0.4 % (0-0.5); Lymphocytes Absolute Auto 1.19 K/mm3 (0.9-3.2); Lymphocytes Percent Auto 15.3 % (18.3-44.2); Mean Corpuscular HGB Conc 32.2 g/dl (32-36); Mean Corpuscular Hemoglobin 30.3 pg (26-34); Mean Corpuscular Volume 94.1 fl (80-100); Mean Platelet Volume 9.8 fl (7.4-10.4); Monocytes Percent Auto 12.2 % (2.6-8.5); Neutrophils Absolute Auto 5.6 K/mm3 (1.3-6.7); Neutrophils Percent Auto 71.7 % (45.5-73.1); Platelet Count Result 220 k/mm3 (150-375); Red Blood Count 3.07 M/mm3 (4.6-6.20); Red Cell Distribution Width 15.5 % (11.5-14.5); White Blood Count 7.8 K/mm3 (4.5-10.0)
--- NOTE | 2021-12-07 08:47 | PC.NURSE ---
Notified Dr. Silver of Patients low blood sugars and inquired about the order due for 65 units of Lantus. Order for Lantus has been discontinued due to low blood sugars.
[2021-12-07 08:48] LABS: Anion Gap 8 mmol/L (8-16); Blood Urea Nitrogen 74 mg/dL (9-20); Calcium 7.8 mg/dL (8.4-10.2); Carbon Dioxide 18 mmol/L (22-30); Chloride 113 mmol/L (98-107); Estimated CRCL calculation 15 ml/min; Estimated Glomerular Filt Rate 10; Glucose 101 mg/dL (65-110); Potassium 4.5 mmol/L (3.4-5.0); Sodium 139 mmol/L (137-145)
[2021-12-07] MEDS: IRON SUCROSE COMPLEX 200 MG in SODIUM CHLORIDE 0.9% IV 50 ML 120 MG IVPB (08:59)
[2021-12-07] MEDS: TAMSULOSIN HCL 0.4 MG CAPSULE PO (09:03)
[2021-12-07] MEDS: CALCIUM ACETATE 667 MG TABLET PO ×2 (09:03→12:47)
[2021-12-07] MEDS: MULTIVITAMINS THERAPEUTIC TAB (*BKC) 1 TABLET PO (09:03)
[2021-12-07] MEDS: ATORVASTATIN 40 MG TABLET 80 MG PO (09:03)
[2021-12-07] MEDS: allopurinoL 100 MG TABLET PO (09:03)
[2021-12-07] MEDS: EZETIMIBE 10 MG TABLET PO (09:03)
[2021-12-07] MEDS: OMEGA 3 POLYUNSAT FATTY ACIDS 1 GM CAP 2 GM PO (09:03)
[2021-12-07] MEDS: PANTOPRAZOLE SODIUM IV 40 MG VIAL IV PUSH (09:04)
[2021-12-07] MEDS: SILVERGEL (ELTA) 45 ML 1 APPLIC TOPICAL (09:04)
[2021-12-07] MEDS: prednisoLONE ACETATE 1% OPHTH 5 ML 1 DROP EACH EYE (09:04)
[2021-12-07] MEDS: carvediloL 12.5 MG TABLET PO (09:04)
[2021-12-07] MEDS: FUROSEMIDE 40 MG TABLET PO (09:04)
[2021-12-07 11:15] LABS: Glucose Point of Care 105 mg/dl (65-105)
--- NOTE | 2021-12-07 11:55 | PM.DS ---
DS: Admitting Diagnosis Discharge Date 12/07/21 Admitting Diagnosis Symptomatic Anemia DS: Discharge Diagnosis Discharge Diagnosis (1) Near syncope: Code(s): R55 - Syncope and collapse Status: Acute Assessment and Plan: Most likely related to hypotension with profound anemia and history of orthostatic hypotension. Initiate fall precautions. Monitor orthostatic vital signs. Echo read is pending at time of discharge. Patient is feeling much better after transfusion with no syncope or lightheadedness. Patient anxious to get home as his has dementia and the paid caregiver will leave at 1230 today and the patient has no one else to be with his . (2) Acute on chronic anemia: Code(s): D64.9 - Anemia, unspecified Status: Acute Assessment and Plan: Non bleeding duodenal ulcer noted on recent EGD. Patient has not noticed any dark stools recently and stool was guaiac negative per ED physician. Transfuse stable hemoglobin. Continue pantoprazole. Hematology attributes the anemia to CKD as patient has no signs of bleeding at this time. Will discharge to home. -Hematology consult recommends biweekly Procrit injections in the office. Also to start taking iron supplement BID -Gastroenterology recommended colonoscopy outpatient and does not think there is any acute bleeding (3) Elevated troponin: Code(s): R77.8 - Other specified abnormalities of plasma proteins Status: Acute Assessment and Plan: He denies active chest pain and likely this is related to ischemia given profound anemia. Troponin was elevated with his recent stay as well but has jumped thus will consult Cardiology for their opinion and recommendations. Aspirin and clopidogrel currently on hold given profound anemia. Continue beta-smita and statin. (4) Stage 5 chronic kidney disease: Code(s): N18.5 - Chronic kidney disease, stage 5 Status: Acute Assessment and Plan: Recent creation of AV fistula in anticipation of the need for dialysis in the near future. Clinically compensated. 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 Initiate sliding scale insulin, Accu-Cheks, and hypoglycemic protocol. Check A1c. (6) Hypertension: Code(s): I10 - Essential (primary) hypertension Status: Chronic Assessment and Plan: Continue carvedilol. (7) Coronary artery disease: Qualifiers: Coronary Disease-Associated Artery/Lesion type: [place] artery [place] vs. transplanted heart: black[place] heart Associated angina: without angina Qualified Code(s): I25.10 - Atherosclerotic heart disease of [place] coronary artery without angina pectoris Code(s): I25.10 - Atherosclerotic heart disease of black[place] coronary artery without angina pectoris Status: Acute Assessment and Plan: ASA & plavix held due to concerns for acute blood loss. Will restart for discharge.? Continue statin and bb.? (8) Hyperlipidemia, unspecified: Code(s): E78.5 - Hyperlipidemia, unspecified Status: Acute Assessment and Plan: On statin. Continue. (9) Symptomatic anemia: Code(s): D64.9 - Anemia, unspecified Status: Acute Assessment and Plan: Improved. (10) Metabolic acidosis: Code(s): E87.2 - Acidosis Status: Acute Assessment and Plan: Likely due to CKD. Will monitor. Follows with Nephrology. DS: Summary Hospital Course Reason for hospitalization: Symptomatic Anemia Hospital Course: 66M with a past medical history of CAD, hypertension, hyperlipidemia, COPD, CKD Stage V, CHF, orthostatic hypotension who presented to the ED for having an episode of lightheadedness found to have a hemoglobin and hematocrit of 4 and 12, respective
[2021-12-07 12:15] LABS: Glucose Point of Care 109 mg/dl (65-105)
[2021-12-09 05:35] LABS: Haptoglobin 233 mg/dL (43-212)
== END 2021-12-07 13:15 | disposition home or self-care (01) ==
LOC: ANHED 09:30 → ANHIMU 13:37
PROVIDERS: Internal Medicine Nephrology; Physician Assistant; Admitting Provider Family Medicine; Emergency Provider Emergency Medicine; PCP Internal Medicine; Visit Provider Family Medicine
DX: R42 Dizziness and giddiness (principal); R55 Syncope and collapse; R77.8 Other specified abnormalities of plasma proteins; K26.9 Duodenal ulcer, unspecified as acute or chronic, without hemorrhage or perforation; I13.2 Hypertensive heart and chronic kidney disease with heart failure and with stage 5 chronic kidney disease, or end stage renal disease; E11.22 Type 2 diabetes mellitus with diabetic chronic kidney disease; D63.1 Anemia in chronic kidney disease; N18.5 Chronic kidney disease, stage 5; E87.2 Acidosis; N40.0 Benign prostatic hyperplasia without lower urinary tract symptoms; E78.5 Hyperlipidemia, unspecified; Z79.82 Long term (current) use of aspirin; I50.30 Unspecified diastolic (congestive) heart failure; Z79.4 Long term (current) use of insulin; I25.10 Atherosclerotic heart disease of native coronary artery without angina pectoris; Z86.010 Personal history of colon polyps; J44.9 Chronic obstructive pulmonary disease, unspecified; Z79.02 Long term (current) use of antithrombotics/antiplatelets
CPT/HCPCS: 36415; 36430; 70450; 71046; 80048; 80053; 80069; 82607; 82728; 82746; 82948; 83010; 83036; 83540; 83550; 83615; 83735; 84466; 84484; 85014; 85018; 85025; 85027; 85046; 86850; 86900; 86901; 86920; 93005; 96361; 96365; 96372; 96374; 96375; 96376; 99285; A9270; C8929; C9113; G0378; J1756; J1940; J2405; J7030; J7050; P9016; Q4081; Q9957

== ENCOUNTER 2021-12-13 11:51 | Outpatient (CLI) | payer MEDICARE, SELFPAY ==
[2021-12-13 12:16] LABS: Basophils Percent Auto 0.2 % (0.2-1.2); Hemoglobin 8.2 g/dL (14.0-18.0); Immature Granulocyte Absolute 0.02 K/mm3 (0.00-0.031); Immature Granulocyte Percent A 0.3 % (0-0.5); Lymphocytes Absolute Auto 1.06 K/mm3 (0.9-3.2); Lymphocytes Percent Auto 17.6 % (18.3-44.2); Mean Corpuscular HGB Conc 31.5 g/dl (32-36); Mean Corpuscular Hemoglobin 30.8 pg (26-34); Mean Corpuscular Volume 97.7 fl (80-100); Mean Platelet Volume 9.2 fl (7.4-10.4); Monocytes Absolute Auto 0.5 K/mm3 (0.1-0.6); Monocytes Percent Auto 7.8 % (2.6-8.5); Neutrophils Absolute Auto 4.5 K/mm3 (1.3-6.7); Neutrophils Percent Auto 74.1 % (45.5-73.1); Platelet Count Result 184 k/mm3 (150-375); Red Blood Count 2.66 M/mm3 (4.6-6.20); Red Cell Distribution Width 16.2 % (11.5-14.5)
[2021-12-13 14:43] LABS: Alanine Aminotransferase 43 U/L (6-50); Albumin Level 3.2 g/dL (3.5-5.1); Alkaline Phosphatase 138 U/L (38-126); Anion Gap 8 mmol/L (8-16); Aspartate Amino Transferase 48 U/L (17-59); Bilirubin,Total 0.2 mg/dL (0.2-1.3); Blood Urea Nitrogen 68 mg/dL (9-20); Calcium 7.6 mg/dL (8.4-10.2); Carbon Dioxide 24 mmol/L (22-30); Chloride 111 mmol/L (98-107); Estimated Glomerular Filt Rate 12; Glucose 283 mg/dL (65-110); Lactate Dehydrogenase 625 U/L (313-618); Sodium 143 mmol/L (137-145)
[2021-12-13 15:03] LABS: Iron 18 ug/dL (49-181); Percent Iron Saturation 6 % (20-50)
== END 2021-12-13 11:52 | disposition home or self-care (01) ==
PROVIDERS: PCP Internal Medicine; Visit Provider Internal Medicine Hematology & Oncology
DX: D64.9 Anemia, unspecified (principal)
CPT/HCPCS: 36415; 80053; 82607; 82728; 83540; 83550; 83615; 85025

== ENCOUNTER 2022-01-02 18:36 | Inpatient (IN) | payer MEDICARE, SELFPAY ==
--- NOTE | ~2022-01-02 | NM_ITS ---
EXAMINATION: NM dhruv stress w perfusion DATE: 01/06/2022 10:30 INDICATION: Chest discomfort and high risk profile. TECHNIQUE: Rest images were obtained following intravenous administration of 10.4 mCi Tc99m tetrofosm in (Myoview). The patient was unable to tolerate the stress portion of the examination and no additio nal radionucleotide was administered and no additional post stress imaging was obtained. Data was rec onstructed into short axis and horizontal and vertical long axis SPECT images. COMPARISON: None. FINDINGS: Small perfusion defect at the junction of the apical septal, apical anterior and to lesser degree in the mid anterior segments which could be due to infarct. No post stress imaging to assess f or ischemia. The gated images to assess for heart motion and ejection fraction are typically obtained from the post stress images were therefore unable to be created. IMPRESSION: 1. Small mild perfusion defect at the junction of the apical septal, anteroapical and mid anterior se gments potentially related to infarct. Specificity is decreased and ischemia along with cardiac wall motion and ejection fraction were unable to be assessed due to termination of the study prior to obta ining the post stress images. Reviewed, dictated and finalized at location A. IMPRESSION: 1. Small mild perfusion defect at the junction of the apical septal, anteroapic al and mid anterior segments potentially related to infarct. Specificity is dec reased and ischemia along with cardiac wall motion and ejection fraction were u nable to be assessed due to termination of the study prior to obtaining the pos t stress images.
--- NOTE | ~2022-01-02 | XR_ITS ---
EXAMINATION: XR fl guide central line place DATE: 01/03/2022 10:58 INDICATION: Peripheral catheter placement TECHNIQUE: Single fluoroscopic spot image of the inferior central chest was obtained during procedure performed by Dr. Reilly. Radiologist was not present for the imaging or procedure. The amount of fluo roscopy time used during this procedure was 0.6 minutes. COMPARISON: 12/05/2021 FINDINGS: Large-bore central venous catheter tip likely at the superior cavoatrial junction along side the lead s of a 2-lead cardiac pacemaker. IMPRESSION: 1. Large bore central venous catheter tip at the superior cavoatrial junction. See procedure note for further detail. Reviewed, dictated and finalized at location A.
--- NOTE | ~2022-01-02 | XR_ITS ---
XR chest port-a-cath/central DATE: 01/03/2022 10:57 INDICATION: Dura flow catheter placement TECHNIQUE: Portable AP view on 01/03/2022 at 1053 hours COMPARISON: 12/05/2021 AP and lateral chest FINDINGS: Right central venous catheter placed via the internal jugular vein, tip overlying upper rig ht atrium. No pneumothorax. There is cardiomegaly and pulmonary vascular congestion. Mild pleural effusions are suggested. There are bilateral infiltrates, involving much of the right lung and the left lower lung. Left transvenous pacemaker is device with leads overlying right atrium and right ventricle. Aortic arch calcification. Diffuse osteopenia. Osteopenia. IMPRESSION: Right Duraflow catheter placement, tip overlying upper right atrium; no pneumothorax Cardiomegaly, congestive changes including bilateral infiltrates, right greater than left Left dual-lead pacemaker device Reviewed, dictated and finalized at Location A. Reviewed, dictated and finalized at location B. IMPRESSION: Right Duraflow catheter placement, tip overlying upper right atrium ; no pneumothorax Cardiomegaly, congestive changes including bilateral infiltrates, right greater than left Left dual-lead pacemaker device
--- NOTE | ~2022-01-02 | XR_ITS ---
EXAMINATION: XR chest 2V DATE: 01/07/2022 09:21 INDICATION: Dyspnea TECHNIQUE: frontal and lateral views of the chest were obtained. COMPARISON: Chest radiograph dated 01/01/2022 FINDINGS: Small lung volumes with bibasilar opacities. Small left pleural effusion. No pneumothorax. The cardia c silhouette is partially obscured. Dual lead pacemaker seen with leads projecting over the expected locations of the right atrium and right ventricle. Large-bore dual-lumen right internal jugular centr al venous catheter with distal tip at the superior cavoatrial junction. IMPRESSION: 1. Lung volumes remain small with bibasilar opacities which could represent atelectasis or pneumonia. 2. Small left pleural effusion. Reviewed, dictated and finalized at location A. IMPRESSION: 1. Lung volumes remain small with bibasilar opacities which could represent ate lectasis or pneumonia. 2. Small left pleural effusion.
[2022-01-02 15:41] VITALS: BMI 32.7
[2022-01-02 15:51] LABS: Glucose Point of Care 225 mg/dl (65-105)
--- NOTE | 2022-01-02 15:54 | ADMGEN ---
This patient, Freddie Valero, was admitted to Medical Room 349-01. Patient/family oriented to hospital policies and general routines including ID bracelet, bed and alarms, visiting hours, pain management, procedures, bathroom and other care routines, personal items, smoking policy, room service/diet, and visiting hours. Information on how to activate the Rapid Response Team has been discussed. Patient/Family are encouraged to report perceived risks to care and to ask questions if they do not understand what they are told or what they should do.
[2022-01-02 16:00] VITALS: BP 168/76; PULSE 83; RESP 18; TEMP 36.6; O2SAT 92
[2022-01-02 16:54] LABS: Basophils Percent Auto 0.2 % (0.2-1.2); Hematocrit 27.7 % (42.0-52.0); Hemoglobin 8.5 g/dL (14.0-18.0); Immature Granulocyte Absolute 0.01 K/mm3 (0.00-0.031); Immature Granulocyte Percent A 0.2 % (0-0.5); Lymphocytes Absolute Auto 1.11 K/mm3 (0.9-3.2); Lymphocytes Percent Auto 19.8 % (18.3-44.2); Mean Corpuscular HGB Conc 30.7 g/dl (32-36); Mean Corpuscular Hemoglobin 30.2 pg (26-34); Mean Corpuscular Volume 98.6 fl (80-100); Mean Platelet Volume 11.3 fl (7.4-10.4); Monocytes Absolute Auto 0.5 K/mm3 (0.1-0.6); Monocytes Percent Auto 9.4 % (2.6-8.5); Neutrophils Percent Auto 70.4 % (45.5-73.1); Platelet Count Result 181 k/mm3 (150-375); Red Blood Count 2.81 M/mm3 (4.6-6.20); Red Cell Distribution Width 18.1 % (11.5-14.5); White Blood Count 5.6 K/mm3 (4.5-10.0)
[2022-01-02 17:04] LABS: Alanine Aminotransferase 42 U/L (6-50); Albumin Level 3.6 g/dL (3.5-5.1); Alkaline Phosphatase 111 U/L (38-126); Anion Gap 8 mmol/L (8-16); Aspartate Amino Transferase 36 U/L (17-59); Bilirubin,Total 0.6 mg/dL (0.2-1.3); Blood Urea Nitrogen 63 mg/dL (9-20); Calcium 8.1 mg/dL (8.4-10.2); Carbon Dioxide 27 mmol/L (22-30); Chloride 107 mmol/L (98-107); Estimated CRCL calculation 15 ml/min; Estimated Glomerular Filt Rate 11; Glucose 221 mg/dL (65-110); Magnesium 2.3 mg/dL (1.6-2.3); Potassium 4.2 mmol/L (3.4-5.0); Sodium 142 mmol/L (137-145)
[2022-01-02 17:05] LABS: Alanine Aminotransferase 42 U/L (6-50); Albumin Level 3.7 g/dL (3.5-5.1); Alkaline Phosphatase 114 U/L (38-126); Aspartate Amino Transferase 39 U/L (17-59); Bilirubin,Total 0.6 mg/dL (0.2-1.3)
--- NOTE | 2022-01-02 17:45 | PM.IMHP ---
H&P: HPI History of Present Illness Date/Time: 01/02/22 17:45 Chief Complaint: Shortness of breath Narrative: Patient is a 66-year-old male with a past medical history of anemia, BPH, COPD, heart failure, diabetes, has chronic kidney disease who presented to the hospital as a direct admit from Dr. Paiz's office for evaluation of increased shortness of breath. Patient stated that he has been having issues with keeping his blood counts up as he was just discharged on the . He has also been vomiting for about a week and he has been having a little chest pain that is sternal and not moving anywhere, shortness of breath with congestion, weakness and fatigue. He also stated that he just in general feels really rough. He stated that he has been checking his O2 and is been 82% so he has been putting on oxygen at 2 L which is bringing his saturation up to 88-90%. He stated that he is having chills all the time and that he is just swollen all around. He did state that his glucose has been all over the place anywhere from 60-220. He get a fistula placed about 1.5 months ago. It was noted that the patient was guaiac positive and patient was post to have a colonoscopy with Dr. Uribe on the . He also stated that he has been having a lot of abdominal pain and has been eating a lot less. He is being admitted to the hospitalist service for a tunnel cath placement and initiation of dialysis. Patient is being admitted to the hospitalist service as an inpatient Review of Systems Review of Systems: All systems reviewed & are unremarkable except as noted in HPI and below PMFSH Past Medical History Medical History Benign prostatic hyperplasia Chronic anemia Chronic obstructive pulmonary disease Coronary artery disease Catheterization and 2005 showed a chronically occluded RCA. In 2017 he had a drug-eluting stent to the proximal left anterior descending. Diastolic congestive heart failure Echocardiogram on 01/31/2021 showed normal LV systolic function with moderately increased LV wall thickness and grade 1 diastolic dysfunction with an EF estimated 55%. Duodenal ulcer (11/2021) Hyperlipidemia, unspecified Hypertension Insulin dependent type 2 diabetes mellitus Orthostasis Related to autonomic dysfunction from his diabetes. Stage 5 chronic kidney disease Surgical History Surgical History History of ankle surgery Left History of esophagogastroduodenoscopy History of eye surgery Laser eye surgery. Status post cardiac pacemaker procedure His 1st pacemaker was placed in his 30s for sinus pause, syncope and bradycardia and he had generator changes in 2002, 2006, and 2011. His RV lead has high thresholds and he was not pacing in also it was turned off. Status post creation of arteriovenous fistula Status post insertion of drug-eluting stent into left anterior descending (LAD) artery for coronary artery disease Family History Family History (Updated 01/02/22 @ 19:29 by RAMON Marques) Father Family history of premature coronary heart disease, Onset Age: 53 Cerebrovascular accident Patient's father is Diabetes mellitus Hypertension Family history of cardiovascular disease Kidney disease Sibling Carcinoma of colon, Onset Age: 39 Mother Patient's mother is , Onset Age: 73 Social History Social History (Updated 01/02/22 @ 19:31 by RAMON Marques) Social History: He still lives is [place] at home. His decision maker is anyone of his 3 children mainly Adele. Advanced directives is on chart. Patient wishes to be a full code at this time however does not want any life-sustaining measures for an excessive amount of time. 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 Surrogate decision make
[2022-01-02 18:17] LABS: Hepatitis B Surface Antigen Negative (Negative)
[2022-01-02 18:23] LABS: HAV RESULT Negative (Negative); Hepatitis B Core IgM Result Negative (Negative)
[2022-01-02 18:24] LABS: HAV RESULT Negative (Negative)
[2022-01-02 18:34] LABS: Hepatitis C Virus Antibody Negative (Negative)
[2022-01-02 20:00] VITALS: BP 136/76; PULSE 85; PULSE 86; RESP 22; TEMP 36.6; O2SAT 97
[2022-01-02 20:41] LABS: Glucose Point of Care 204 mg/dl (65-105)
[2022-01-02] MEDS: ATORVASTATIN 40 MG TABLET 80 MG PO (22:22)
[2022-01-02] MEDS: TAMSULOSIN HCL 0.4 MG CAPSULE PO (22:24)
[2022-01-02] MEDS: ONDANSETRON INJ 4 MG/2 ML VIAL IV PUSH (22:32)
[2022-01-02] MEDS: HYDROcodone/acetaminophen (*CRX) 5-325 MG TABLET 1 TAB PO (22:32)
[2022-01-02 23:04] LABS: Hepatitis B Surface Antigen Negative (Negative)
[2022-01-02 23:21] LABS: Hepatitis B Surface Anti Res Negative; Hepatitis C Virus Antibody Negative (Negative)
[2022-01-03] VITALS (24 sets, daily range): BP systolic 126–185; BP diastolic 63–90; PULSE 79–96; RESP 13–22; TEMP 35.5–37.1; O2SAT 14–99
[2022-01-03 05:51] LABS: Basophils Percent Auto 0.4 % (0.2-1.2); Hemoglobin 8.5 g/dL (14.0-18.0); Immature Granulocyte Absolute 0.01 K/mm3 (0.00-0.031); Immature Granulocyte Percent A 0.2 % (0-0.5); Lymphocytes Absolute Auto 1.28 K/mm3 (0.9-3.2); Lymphocytes Percent Auto 23.8 % (18.3-44.2); Mean Corpuscular HGB Conc 30.4 g/dl (32-36); Mean Corpuscular Hemoglobin 30.2 pg (26-34); Mean Corpuscular Volume 99.6 fl (80-100); Mean Platelet Volume 10.8 fl (7.4-10.4); Monocytes Absolute Auto 0.6 K/mm3 (0.1-0.6); Neutrophils Absolute Auto 3.5 K/mm3 (1.3-6.7); Neutrophils Percent Auto 64.6 % (45.5-73.1); Platelet Count Result 158 k/mm3 (150-375); Red Blood Count 2.81 M/mm3 (4.6-6.20); Red Cell Distribution Width 17.9 % (11.5-14.5); White Blood Count 5.4 K/mm3 (4.5-10.0)
[2022-01-03 06:05] LABS: Alanine Aminotransferase 36 U/L (6-50); Albumin Level 3.6 g/dL (3.5-5.1); Alkaline Phosphatase 79 U/L (38-126); Anion Gap 6 mmol/L (8-16); Aspartate Amino Transferase 28 U/L (17-59); Bilirubin,Total 0.7 mg/dL (0.2-1.3); Blood Urea Nitrogen 66 mg/dL (9-20); Calcium 7.8 mg/dL (8.4-10.2); Carbon Dioxide 30 mmol/L (22-30); Chloride 108 mmol/L (98-107); Estimated CRCL calculation 15 ml/min; Estimated Glomerular Filt Rate 10; Glucose 121 mg/dL (65-110); Magnesium 2.3 mg/dL (1.6-2.3); Phosphorus 5.8 mg/dL (2.5-4.5); Potassium 4.3 mmol/L (3.4-5.0); Sodium 144 mmol/L (137-145)
[2022-01-03 07:46] LABS: Glucose Point of Care 112 mg/dl (65-105)
--- NOTE | 2022-01-03 08:14 | PM.CNNEP ---
Assessment and Plan Additional Plan 1. Freddie has a chronic kidney disease stage 5. He now has uremia plus volume overload. We cannot fix either the uremia or the volume overload with medication without making the other 1 worse. I think that he is going to need dialysis. We discussed this at length and he agrees to proceed. 2. The patient has hypertension. His blood pressure has been doing pretty well. Will see how his response to removing fluid. 3. The patient has diabetes. Blood sugars have been okay per he is on Accu-Cheks and sliding scale insulin per hospitalist. 4. The patient has anemia. Will give the patient iron and also Epogen. 5. Volume overload. remove with dialysis. will continue diuretics to make use of residual kidney function. 6.n/v due to uremia hopefully. will see how he does. 7.gout no ex lately 8.hyperlipidemia on atorvastatin and zetia. History of Present Illness Reason for Consult Consult date: 01/04/22 Chief Complaint Chief complaint: renal failure volume overload History of Present Illness Narrative: Freddie is a very pleasant 58-year-old gentleman who has multiple medical problems including chronic kidney disease stage 5, he has a right upper arm fistula in place but is not mature yet, diabetes, hypertension, hyperlipidemia, GERD, BPH, anemia, coronary artery disease, diastolic dysfunction. The patient has been in out of the hospital for the last few months with volume overload. Diuretics are given to improve the volume overload and then the BUN and creatinine might rise so diuretics are cut back. 4-6 weeks ago, his metolazone was discontinued because of the high BUN and creatinine. He says in the last week or to his swelling has worsened his shortness or breath is worse I as well. However in addition to this patient has lost his appetite. He has become nauseated has been vomiting several times per day for the last week or so. He feels generally weak and tired. He lives at home and cares for his ill and his energy level has been very low. He came to my office yesterday and we talked at length. Usually if it is just fluid overload we can give him more diuretics to get his shortness of breath better however he also had uremic symptoms so we discussed initiation of dialysis. He agrees to proceed. The patient has no fevers or chills. No cough. No belly pain. He feels like he can not take a deep breath and has a constant chest constriction but this only happens when he takes a deep breath. Walking does not make this worse. His sugars have been doing pretty well. Review of Systems Constitutional: Constitutional: Reports no additional constitutional complaints Eyes: Eyes: Reports no additional eye complaints ENT: Reports system reviewed and no additional complaints, except as documented Cardiovascular: Cardiovascular: Reports no additional cardiovascular complaints Respiratory: Respiratory: Reports no additional respiratory complaints Gastrointestinal: Gastrointestinal: Reports no additional gastrointestinal complaints Genitourinary: Genitourinary: Reports no additional male genitourinary complaints Musculoskeletal: Musculoskeletal: Reports no additional musculoskeletal complaints Integumentary/Breasts: Skin/Breast: Reports system reviewed and no additional complaints, except as docu Neurologic: Reports system reviewed and no additional complaints, except as documented Psychiatric: Psychiatric: Reports no additional psychiatric complaints Endocrine: Endocrine: Reports no additional endocrine complaints [facility] Past Medical History Medical History (Updated 01/03/22 @ 16:53 by Lindsey Marinelli, JULIANNE) Benign prostatic hyperplasia Chronic anemia Chronic obstructive pulmonary disease Coronary artery disease Catheterization and 2005 showed a chronically occluded RCA. In 2017 he had a drug-eluting stent to the proximal left anterior descending. Diastolic congestive heart failure Echocard
--- NOTE | 2022-01-03 08:30 | PC.NURSE ---
Addendum entered by Montana Luz RN 01/03/22 13:24: headed to pre op Original Note: 0830: Pt off the floor,
[2022-01-03 08:35] LABS: Hemoglobin A1C 6.8 % (<5.7)
--- NOTE | 2022-01-03 08:53 | PM.CNGS ---
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 Status: Acute Assessment and Plan: cont mgmt per primary team (3) Anemia in CKD (chronic kidney disease): Code(s): N18.9 - Chronic kidney disease, unspecified; D63.1 - Anemia in chronic kidney disease Status: Acute Assessment and Plan: cont EPO, H/H stable at this point (4) Congestive heart failure: Code(s): I50.9 - Heart failure, unspecified Status: Acute Assessment and Plan: anesthesia aware, higher risk c surgery History of Present Illness Consult details Consult date: 01/03/22 Reason for consult: other (renal failure) Requesting physician: Shahzad Paiz MD Narrative: Pt is a 66 y/o M c multiple med issues presenting c worsening renal failure. Pt reports he has been very weak and short of breath progressively over last few wks. Pt reports poor appetite and significant N/V. Pt actually has a RUE AV fistula that was done about a month and a half ago. Pt denies any previous dialysis catheters. Review of Systems Constitutional: Constitutional: Reports fatigue, Reports lethargy, Reports malaise, Reports poor appetite, Reports weakness, Denies weight gain and Denies weight loss ENT: Reports system reviewed and no additional complaints, except as documented Cardiovascular: Cardiovascular: Reports no additional cardiovascular complaints Respiratory: Respiratory: Reports dyspnea and Reports dyspnea on exertion Gastrointestinal: Gastrointestinal: Reports no additional gastrointestinal complaints Genitourinary: Genitourinary: Reports as per HPI Musculoskeletal: Musculoskeletal: Reports no additional musculoskeletal complaints Integumentary/Breasts: Skin/Breast: Reports system reviewed and no additional complaints, except as docu Neurologic: Reports system reviewed and no additional complaints, except as documented Psychiatric: Psychiatric: Reports no additional psychiatric complaints Endocrine: Endocrine: Reports no additional endocrine complaints Hematologic/Lymphatic: Hematologic/Lymphatic: Reports no additional hematologic/lymphatic complaints Allergic/Immunologic: Allergic/Immunologic: Reports no additional allergic/immunologic complaints [facility] Past Medical History Medical History Benign prostatic hyperplasia Chronic anemia Chronic obstructive pulmonary disease Coronary artery disease Catheterization and 2005 showed a chronically occluded RCA. In 2017 he had a drug-eluting stent to the proximal left anterior descending. Diastolic congestive heart failure Echocardiogram on 01/31/2021 showed normal LV systolic function with moderately increased LV wall thickness and grade 1 diastolic dysfunction with an EF estimated 55%. Duodenal ulcer (11/2021) Hyperlipidemia, unspecified Hypertension Insulin dependent type 2 diabetes mellitus Orthostasis Related to autonomic dysfunction from his diabetes. Stage 5 chronic kidney disease Surgical History Surgical History History of ankle surgery Left History of esophagogastroduodenoscopy History of eye surgery Laser eye surgery. Status post cardiac pacemaker procedure His 1st pacemaker was placed in his 30s for sinus pause, syncope and bradycardia and he had generator changes in 2002, 2006, and 2011. His RV lead has high thresholds and he was not pacing in also it was turned off. Status post creation of arteriovenous fistula Status post insertion of drug-eluting stent into left anterior desce
--- NOTE | 2022-01-03 09:00 | WPDHPUPDATE1 ---
History and Physical Update Update Date/Time: 01/03/22 09:00 History and Physical has been reviewed, including an updated exam of the patient. There are NO changes in the patient's condition. Risks, benefits, and alternatives have been discussed and questions answered. Patient agrees to proceed with procedure.
[2022-01-03 09:15] LABS: Glucose Point of Care 106 mg/dl (65-105)
--- NOTE | 2022-01-03 09:15 | WPDANESEPPF ---
Anes - Initial Pre Proc Eval Procedure: Operation Date: 01/03/22 10:00 Proposed Procedures p Insertion Duraflow - Dea Reilly MD Date/Time: 01/03/22 09:15 Surgeon: Le Osman MD Pre Op Diagnosis: renal failure volume overload Patient Data Age: 66 Gender: M Height: 1.8 m Weight: 106.5 kg Last Vital Signs Temp 36.8 C 01/03/22 09:08 Pulse 81 01/03/22 09:08 Resp 14 01/03/22 09:08 BP 181/81 H 01/03/22 09:08 Pulse Ox 14 L 01/03/22 09:08 O2 Del Method Room Air 01/03/22 09:08 Allergies Allergy/AdvReac Type Severity Reaction Status Date / Time Iodinated Contrast Media Allergy Unknown Hives Verified 12/12/21 09:15 lisinopril AdvReac Cough Verified 12/12/21 09:15 Home Medications Medication Instructions Recorded Confirmed Type calcium acetate(phosphat bind) 667 667 mg PO TIDWM 08/15/21 01/02/22 History mg capsule clopidogrel 75 mg tablet (Plavix) 75 mg PO DAILY #90 tabs 08/21/21 01/02/22 Rx insulin aspart U-100 100 unit/mL 8 unit subcut TID PRN blood sugar 08/29/21 01/02/22 History (3 mL) subcutaneous pen (Novolog Flexpen U-100 Insulin aspart) omega-3 fatty acids-vitamin E 1,000 cap PO BID 08/29/21 01/02/22 History 1,000 mg capsule allopurinol 100 mg tablet 100 mg PO BID 11/14/21 01/02/22 History insulin degludec 200 unit/mL (3 72 unit subcut DAILY 11/24/21 01/02/22 History mL) subcutaneous pen (Tresiba FlexTouch U-200 insulin) prednisolone acetate 1 % eye 1 drp ophthalmic (eye) BID 11/24/21 01/02/22 History drops,suspension pantoprazole 40 mg tablet,delayed 40 mg PO QAM 42 days #42 tabs 11/27/21 01/02/22 Rx release Adult One Daily Multivitamin 1 tab-cap PO DAILY 12/05/21 01/02/22 History cholecalciferol (vitamin D3) 250 5,000 unit PO BID 12/05/21 01/02/22 History mcg (10,000 unit) capsule furosemide 40 mg tablet (Lasix) 40 mg PO BID 12/05/21 01/02/22 History nitroglycerin 0.4 mg sublingual 0.4 mg sublingual Q5M PRN Chest 12/05/21 01/02/22 History tablet Pain epoetin cindi 10,000 unit/mL 10,000 unit subcut TUTHSA PRN 12/07/21 01/02/22 Rx injection solution (Epogen) anemia 30 days #10 mL ferrous sulfate 325 mg (65 mg 325 mg PO BID #60 tabs 12/07/21 01/02/22 Rx iron) tablet albuterol sulfate 2.5 mg/3 mL 1.25 mg inhalation Q6H PRN 01/02/22 01/02/22 History (0.083 %) solution for nebulization shortness of breath or wheezing atorvastatin 80 mg tablet 80 mg PO HS 01/02/22 01/02/22 History carvedilol 12.5 mg tablet 12.5 mg PO BID 01/02/22 01/02/22 History dulaglutide 1.5 mg/0.5 mL 1.5 mg subcut WEEKLY 01/02/22 01/02/22 History subcutaneous pen injector (Trulicity) ezetimibe 10 mg tablet 10 mg PO DAILY 01/02/22 01/02/22 History tamsulosin 0.4 mg capsule 0.4 mg PO HS 01/02/22 01/02/22 History Laboratory Tests 01/02/22 01/02/22 01/02/22 15:48 16:44 16:44 WBC RBC Hgb Hct MCV MCH MCHC RDW Plt Count MPV Immature Gran % (Auto) Neut % (Auto) Lymph % (Auto) [place] % (Auto) Eos % (Auto) Baso % (Auto) Lymph # (Auto) [place] # (Auto) Eos # (Auto) Baso # (Auto) Abs Immat Gran (auto) Absolute Neuts (auto) Absolute Nucleated RBC Nucleated RBC % Sodium Potassium Chloride Carbon Dioxide Anion Gap BUN Creatinine Estim Creat Clear Calc Estimated GFR Glucose POC Capillary Glucose 225 mg/dl H mg/dl (65-105) Hemoglobin A1c Calcium Phosphorus Magnesium Total Bilirubin Direct Bilirubin AST ALT Alkaline Phosphatase Tot
--- NOTE | 2022-01-03 09:16 | P.PNIM_ITS ---
Progress Note: A&P Assessment and Plan (1) Uremia: Code(s): N19 - Unspecified kidney failure Status: Acute Assessment and Plan: On admission, BUN/Cr is 63/5.40, GFR 11, and Creatinine clearance is 15 * Fistula was created about 1.5 months ago * Tunnelled cath to be inserted by today and patient started on dialysis today -2.4L * Nephrology, Dr. Paiz consulted for dialysis management and appreciate recommendations. * Repeat renal function panel, magnesium and phose level tomorrow. * On phoslo and epogen with HD. * Monitor vital signs and strict I/O. (2) Chronic kidney disease (CKD), stage V: Code(s): N18.5 - Chronic kidney disease, stage 5 Status: Chronic Assessment and Plan: As above. (3) Diabetes: Code(s): E11.9 - Type 2 diabetes mellitus without complications Status: Chronic Assessment and Plan: * A1c 6.8%. * Glucose <200 mg/dL and patient NPO for procedure and HD. * Given lantus 15 units today, will adjust lantus for tomorrow pending appetite and glucose levels. Patient takes 72 units Tresiba daily, plus Trulicity. * Continue accu-cheks AC/HS with aspart sliding scale insulin. * Hypoglycemia protocol initiated. (4) Congestive heart failure: Qualifiers: Heart failure type: diastolic Heart failure chronicity: acute on chronic Qualified Code(s): I50.33 - Acute on chronic diastolic (congestive) heart failure Code(s): I50.9 - Heart failure, unspecified Status: Acute Assessment and Plan: Acute on chronic diastolic CHF exacerbation. Patient is complaining of shortness of breath on admission, Echo from 12/07/2021 shows EF of 60-65% with grade 1 diastolic dysfunction. Presumed secondary to volume overload and renal failure. * Chest x-ray shows cardiomegaly and congestive changes. * Continue home Lasix 40 mg p.o. b.i.d., carvedilol 12.5 mg p.o. b.i.d. * Dialysis initiated today 01/03/22 * Daily weights * Strict I&Os (5) Anemia: Code(s): D64.9 - Anemia, unspecified Status: Chronic Assessment and Plan: H&H is 8.5/27.7. Hgb 9.3-8.2 previous admission. Anemia is related to recent GI bleed, iron deficiency and chronic disease with end-stage renal disease. * Anemia labs iron 18, TIBC 321, % saturation 6, ferritin 93.10, B12 208 * IV Venofer 200 mg daily ordered x5 * Add cyanocobalamin 1,000 mcg PO daily. * Monitor H/H * Transfuse with HD as indicated * Dr. Olivia following outpatient (6) Hypertension: Code(s): I10 - Essential (primary) hypertension Status: Chronic Assessment and Plan: * Continue home carvedilol 12.5 p.o. b.i.d, furosemide 40 mg p.o. b.i.d * Consider adding adjunct medication if continues to remain elevated. * Monitor vitals on medication and dialysis (7) Hyperlipidemia, unspecified: Code(s): E78.5 - Hyperlipidemia, unspecified Status: Chronic Assessment and Plan: * Continue home atorvastatin 80 mg p.o. at night Plan Diet: Consistent carb/heart healthy CODE STATUS: FULL CODE Disposition: home when medically stable. Time Spent With Patient Time with patient: 15 - 25 minutes Subjective Date/time seen: 01/03/22 09:16 Interval history: Patient is a 66 yo male with medical history of anemia, BPH, COPD, diastolic heart failure, insulin dependent diabetes, and chronic kidney disease stage 5 who presented to the hospital as a direct admit from Dr. Paiz's office for evaluation of
--- NOTE | 2022-01-03 09:16 | PM.IMPN ---
Progress Note: A&P Assessment and Plan (1) Uremia: Code(s): N19 - Unspecified kidney failure Status: Acute Assessment and Plan: On admission, BUN/Cr is 63/5.40, GFR 11, and Creatinine clearance is 15 Fistula was created about 1.5 months ago Tunnelled cath to be inserted by GS today and patient started on dialysis today -2.4L Nephrology, Dr. Paiz consulted for dialysis management and appreciate recommendations. Repeat renal function panel, magnesium and phose level tomorrow. On phoslo and epogen with HD. Monitor vital signs and strict I/O. (2) Chronic kidney disease (CKD), stage V: Code(s): N18.5 - Chronic kidney disease, stage 5 Status: Chronic Assessment and Plan: As above. (3) Diabetes: Code(s): E11.9 - Type 2 diabetes mellitus without complications Status: Chronic Assessment and Plan: A1c 6.8%. Glucose <200 mg/dL and patient NPO for procedure and HD. Given lantus 15 units today, will adjust lantus for tomorrow pending appetite and glucose levels. Patient takes 72 units Tresiba daily, plus Trulicity. Continue accu-cheks AC/HS with aspart sliding scale insulin. Hypoglycemia protocol initiated. (4) Congestive heart failure: Qualifiers: Heart failure type: diastolic Heart failure chronicity: acute on chronic Qualified Code(s): I50.33 - Acute on chronic diastolic (congestive) heart failure Code(s): I50.9 - Heart failure, unspecified Status: Acute Assessment and Plan: Acute on chronic diastolic CHF exacerbation. Patient is complaining of shortness of breath on admission, Echo from 12/07/2021 shows EF of 60-65% with grade 1 diastolic dysfunction. Presumed secondary to volume overload and renal failure. Chest x-ray shows cardiomegaly and congestive changes. Continue home Lasix 40 mg p.o. b.i.d., carvedilol 12.5 mg p.o. b.i.d. Dialysis initiated today 01/03/22 Daily weights Strict I&Os (5) Anemia: Code(s): D64.9 - Anemia, unspecified Status: Chronic Assessment and Plan: H&H is 8.5/27.7. Hgb 9.3-8.2 previous admission. Anemia is related to recent GI bleed, iron deficiency and chronic disease with end-stage renal disease. Anemia labs iron 18, TIBC 321, % saturation 6, ferritin 93.10, B12 208 IV Venofer 200 mg daily ordered x5 Add cyanocobalamin 1,000 mcg PO daily. Monitor H/H Transfuse with HD as indicated Dr. Olivia following outpatient (6) Hypertension: Code(s): I10 - Essential (primary) hypertension Status: Chronic Assessment and Plan: Continue home carvedilol 12.5 p.o. b.i.d, furosemide 40 mg p.o. b.i.d Consider adding adjunct medication if continues to remain elevated. Monitor vitals on medication and dialysis (7) Hyperlipidemia, unspecified: Code(s): E78.5 - Hyperlipidemia, unspecified Status: Chronic Assessment and Plan: Continue home atorvastatin 80 mg p.o. at night Plan Diet: Consistent carb/heart healthy CODE STATUS: FULL CODE Disposition: home when medically stable. Time Spent With Patient Time with patient: 15 - 25 minutes Subjective Date/time seen: 01/03/22 09:16 Interval history: Patient is a 66 yo male with medical history of anemia, BPH, COPD, diastolic heart failure, insulin dependent diabetes, and chronic kidney disease stage 5 who presented to the hospital as a direct admit from Dr. Paiz's office for evaluation of increased shortness of breath. Patient was found to have uremia and volume overload. He was admitted for initiation of hemodialysis. Patient found sitting up in bed. He reports feeling tired after dialysis. He reports that they took off approximately 2 liters today. He denies nausea and vomiting at this time, but reports he had persistent vomiting prior to admission. He thinks his breathing is slightly improved, but still labored at times. No sputum, fever, or chills.
[2022-01-03] MEDS: SODIUM CHLORIDE 0.9% IV 500 ML 30 ML IV CONT (09:26)
[2022-01-03] MEDS: ceFAZolin 2 GM/D5W 50 ML 2 GM/50 ML BAG IVPB (10:26)
[2022-01-03] MEDS: LIDO 1%/EPINEPHRINE 1:100,000 10 ML VIAL 20 ML INFILTRATE (10:29)
[2022-01-03] MEDS: HEPARIN SODIUM, PORCINE 10,000 UNITS/10 ML VIAL 4.5 UNITS IRRIGATION (10:30)
--- NOTE | 2022-01-03 10:41 | W.PM.PROC2 ---
Procedure Note - Detailed Date of Procedure 01/03/22 Pre-op Diagnosis renal failure Post-op Diagnosis Same Procedure Performed placement of 28 cm tunneled hemodialysis catheter in right internal jugular vein under both ultrasound and fluroscopic guidance Surgeon Dea Reilly MD Anesthesia MAC and Local Indications 66 y/o M c acute on chronic renal failure necessitating urgent dialysis Findings 1st stick RIJ Description of Procedure Patient was taken to the operating room and placed in the supine position. After adequate induction of general anesthesia, the patient was prepped and draped in normal sterile fashion. A time-out was then done to verify the patient's identity as well as the procedure being performed. I began by using the SonoSite and locating the right internal jugular vein. Once this was done, I localized the overlying skin. I then made a small incision in the skin. I then gained access into the right internal jugular vein with an 18 gauge needle. At this point, I threaded the guidewire into the right internal jugular vein. Placement of the guidewire was confirmed by both ultrasound and fluoroscopic guidance. I then went ahead and measured the 28 cm tunneled dialysis catheter to our stick site in the right neck. I then localized the tract going from the right chest to the right neck. I then made a small incision in the right chest and tunneled the catheter to the right neck. I then serially dilated the right internal jugular vein under fluoroscopic guidance. Once adequately dilated, I placed the dilating sheath over the guidewire into the right internal jugular vein under fluoroscopic visualization. Once this was noted to be in good position, I removed both the guidewire and dilator, now just leaving the sheath in the vein. I then went ahead and fed the previously tunneled catheter into the sheath. Once the catheter was fed and positioned correctly, I went ahead and peeled the sheath away. Final fluoroscopic view showed the catheter in good position from its insertion point in the right chest to its termination in the atrial caval junction. It was noted there was no kinking of the catheter. I was able to easily draw and flush from both ports of the catheter. I placed 2.2 and 2.3 cc of final heparin flush into each port as marked. The catheter was then sutured into place and the incision in the neck was closed with 4 O Monocryl subcuticular suture. The patient tolerated the procedure well and will be transferred to the PACU in stablel condition. Sterile dressing was placed on the catheter. Portable chest x-ray will be done in the recovery room. Implants 28 cm tunneled hemodialysis catheter Estimated Blood Loss 20 Drains No Packing No Pathology None sent Complications No immediate complications Condition Stable Disposition PACU [facility] Billing Surgery - Charge Forward: Surgery Billing
[2022-01-03] MEDS: HEPARIN SODIUM 5,000 UNITS/ML VIAL 5000 UNITS SUB-Q (10:50)
--- NOTE | 2022-01-03 11:03 | SUR.PHASEI ---
1053 chest xray done
[2022-01-03 11:15] LABS: Glucose Point of Care 115 mg/dl (65-105)
--- NOTE | 2022-01-03 11:45 | PC.NURSE ---
1145: spoke with tire man and pt will go to dialysis after PACU
[2022-01-03] MEDS: EPOETIN ALFA-EPBX 10,000 UNITS/ML VIAL 10000 UNITS IV PUSH (14:33)
[2022-01-03] MEDS: SODIUM CHLORIDE 0.9% IV 1,000 ML 999 ML IV CONT (14:34)
--- NOTE | 2022-01-03 14:36 | PCNSR ---
On 01/03/22, the student, Yuly Winn , provided care and completed [facility] documentation on this patient. I have reviewed the student's documentation and agree with the findings.
--- NOTE | 2022-01-03 15:15 | PC.NURSE ---
1515: patient back to unit from dialysis
[2022-01-03] MEDS: IRON SUCROSE COMPLEX 200 MG in SODIUM CHLORIDE 0.9% IV 50 ML 120 MG IVPB (16:37)
[2022-01-03] MEDS: FUROSEMIDE 40 MG TABLET PO (16:40)
[2022-01-03] MEDS: prednisoLONE ACETATE 1% OPHTH 5 ML 1 DROP EACH EYE (16:40)
[2022-01-03] MEDS: CALCIUM ACETATE 667 MG TABLET PO (16:40)
[2022-01-03] MEDS: CHOLECALCIFEROL 1,000 UNITS TABLET 5000 UNITS PO (16:40)
[2022-01-03] MEDS: SILVERGEL (ELTA) 45 ML 1 APPLIC TOPICAL (16:47)
[2022-01-03 16:51] LABS: Glucose Point of Care 71 mg/dl (65-105)
[2022-01-03 20:08] LABS: Glucose Point of Care 111 mg/dl (65-105)
[2022-01-03] MEDS: ATORVASTATIN 40 MG TABLET 80 MG PO (20:47)
[2022-01-03] MEDS: carvediloL 12.5 MG TABLET PO (20:47)
[2022-01-03] MEDS: TAMSULOSIN HCL 0.4 MG CAPSULE PO (20:47)
[2022-01-03] MEDS: allopurinoL 100 MG TABLET PO (20:48)
[2022-01-03] MEDS: HYDROcodone/acetaminophen (*CRX) 5-325 MG TABLET 1 TAB PO (20:48)
[2022-01-04] VITALS (18 sets, daily range): BP systolic 144–189; BP diastolic 62–92; PULSE 70–83; RESP 16–20; TEMP 35.7–37.1; O2SAT 93–97
[2022-01-04 06:00] LABS: Hematocrit 27.2 % (42.0-52.0); Hemoglobin 8.4 g/dL (14.0-18.0); Mean Corpuscular HGB Conc 30.9 g/dl (32-36); Mean Corpuscular Volume 97.1 fl (80-100); Mean Platelet Volume 10.9 fl (7.4-10.4); Platelet Count Result 150 k/mm3 (150-375); Red Cell Distribution Width 17.9 % (11.5-14.5); White Blood Count 5.5 K/mm3 (4.5-10.0)
[2022-01-04 06:24] LABS: Albumin Level 3.1 g/dL (3.5-5.1); Anion Gap 6 mmol/L (8-16); Blood Urea Nitrogen 50 mg/dL (9-20); Calcium 8.4 mg/dL (8.4-10.2); Carbon Dioxide 31 mmol/L (22-30); Chloride 104 mmol/L (98-107); Estimated CRCL calculation 19 ml/min; Estimated Glomerular Filt Rate 14; Glucose 79 mg/dL (65-110); Magnesium 2.1 mg/dL (1.6-2.3); Phosphorus 4.9 mg/dL (2.5-4.5); Potassium 4.2 mmol/L (3.4-5.0); Sodium 141 mmol/L (137-145)
[2022-01-04 07:47] LABS: Glucose Point of Care 76 mg/dl (65-105)
[2022-01-04] MEDS: allopurinoL 100 MG TABLET PO ×2 (08:00→22:17)
[2022-01-04] MEDS: carvediloL 12.5 MG TABLET PO ×2 (08:00→22:17)
[2022-01-04] MEDS: CALCIUM ACETATE 667 MG TABLET PO ×3 (08:00→16:41)
[2022-01-04] MEDS: CHOLECALCIFEROL 1,000 UNITS TABLET 5000 UNITS PO ×2 (08:01→16:43)
[2022-01-04] MEDS: SILVERGEL (ELTA) 45 ML 1 APPLIC TOPICAL (08:01)
[2022-01-04] MEDS: FUROSEMIDE 40 MG TABLET PO (08:01)
[2022-01-04] MEDS: PANTOPRAZOLE 40 MG TABLET PO (08:01)
[2022-01-04] MEDS: CYANOCOBALAMIN 1,000 MCG TABLET 1000 MCG PO (08:01)
[2022-01-04] MEDS: EZETIMIBE 10 MG TABLET PO (08:01)
[2022-01-04] MEDS: prednisoLONE ACETATE 1% OPHTH 5 ML 1 DROP EACH EYE ×2 (08:02→16:42)
--- NOTE | 2022-01-04 09:38 | PC.NURSE ---
Marilee Sandoval notifed of pt refusing lantus this am glucose 73 and he did not eat much breakfast.
[2022-01-04 09:55] LABS: Glucose Point of Care 116 mg/dl (65-105)
[2022-01-04] MEDS: IRON SUCROSE COMPLEX 200 MG in SODIUM CHLORIDE 0.9% IV 50 ML 120 MG IVPB (10:28)
--- NOTE | 2022-01-04 11:32 | PM.PNNEP ---
Progress Note: A&P Additional Plan 1. Freddie has chronic kidney disease stage 5D Now. I do not think his kidney function is going to improve enough to get off dialysis.. He is getting dialysis and tolerating this pretty well. Will continue to inch up on the treatment dose. I do not think the blurry vision is dialysis disequilibrium. Possibly due to flux in BUN? 2. The patient has hypertension. His blood pressure Is a bit high. We will take 3L off today and see how he does. We can adjust his medications tomorrow if the blood pressure still high. 3. The patient has diabetes. he is on Accu-Cheks and sliding scale insulin per hospitalist. 4. The patient has anemia. On iron and also Epogen. 5. Volume overload. remove with dialysis. will continue diuretics to make use of residual kidney function. 6.n/v due to uremia hopefully. will see how he does. 7.gout no ex lately 8.hyperlipidemia on atorvastatin and zetia. 9. phosphorus levels a little bit high. Will give PhosLo. Subjective Date/time seen: 01/04/22 11:32 Interval history: Freddie is on dialysis now. He had a treatment yesterday which was 2 hours long and did well. About 2L was removed. Today he is on dialysis and tolerating it well. His blood pressures at about 150. About 3L is being removed today. He does have some blurry vision. He says this does not happen very often. His blood sugars are okay, is blood pressure is okay. No other neurologic issues. Review of Systems Cardiovascular: Cardiovascular: Reports no additional cardiovascular complaints Respiratory: Respiratory: Reports no additional respiratory complaints Gastrointestinal: Gastrointestinal: Reports no additional gastrointestinal complaints Genitourinary: Genitourinary: Reports no additional male genitourinary complaints Exam Narrative: WDWN in NAD skin no rash head ncat lungs clear cor reg no rub abd BS+ nontender and soft ext no edema. Objective Data Vital Signs Vital Signs: Vital Signs - 24 hr 01/03/22 11:51 01/03/22 12:00 01/03/22 12:52 Temperature Pulse Rate 81 80 80 Respiratory Rate 14 13 Blood Pressure 166/75 H 169/78 H 168/81 H Pulse Oximetry 97 98 Oxygen Delivery Nasal Cannula Nasal Cannula Oxygen Flow Rate 2 2 01/03/22 13:00 01/03/22 12:40 01/03/22 12:40 Temperature 36.6 C Pulse Rate 79 81 Respiratory Rate 16 Blood Pressure 163/88 H 166/88 H Pulse Oximetry Oxygen Delivery Oxygen Flow Rate 2 01/03/22 13:20 01/03/22 13:40 01/03/22 14:00 Temperature Pulse Rate 79 79 79 Respiratory Rate Blood Pressure 170/85 H 169/89 H 151/83 H Pulse Oximetry Oxygen Delivery Oxygen Flow Rate 01/03/22 14:20 01/03/22 14:40 01/03/22 14:52 Temperature Pulse Rate 80 81 80 Respiratory Rate Blood Pressure 161/86 H 167/86 H 175/83 H Pulse Oximetry Oxygen Delivery Oxygen Flow Rate 01/03/22 15:01 01/03/22 16:00 01/03/22 20:00 Temperature 36.6 C 36.7 C 37.1 C Pulse Rate 81 85 90 Respiratory Rate 16 18 20 Blood Pressure 185/89 H 178/73 H 185/90 H Pulse Oximetry 93 93 Oxygen Delivery Oxygen Flow Rate 01/03/22 20:47 01/03/22 20:00 01/03/22 20:00 Temperature Pulse Rate 90 91 Respiratory Rate Blood Pressure Pulse Oximetry Oxygen Delivery Room Air Oxygen Flow Rate 01/04/22 00:00 01/04/22 00:00 01/04/22 04:00 Temperature 37.1 C Pulse Rate 70 82 81 Respiratory Rate 20 Blood Pressure 185/90 H Pulse Oximetry 94 Oxygen Delivery Oxygen Flow Rate 01/04/22 04:00 01/04/22 08:00 01/04/22 08:00 Temperature 36.7 C Pulse Rate 82 80 80 Respiratory Rate 20 Blood Pressure 189/81 H Pulse Oximetry 94 Oxygen Delivery Oxygen Flow Rate 01/04/22 08:00 01/04/22 09:24 01/04/22 09:14 Temperature 36.8 C 36.8 C Pulse Rate 80 79 80 Respiratory Rate 18 16 Blood Pressure 144/62 H 164/80 H 162/84 H Pulse Oximetry 97 Oxygen Delivery Oxygen
[2022-01-04 12:23] LABS: Glucose Point of Care 98 mg/dl (65-105)
--- NOTE | 2022-01-04 13:49 | P.PNIM_ITS ---
Progress Note: A&P Assessment and Plan (1) Uremia: Code(s): N19 - Unspecified kidney failure Status: Acute Assessment and Plan: On admission, BUN/Cr is 63/5.40, GFR 11, and Creatinine clearance is 15 * Fistula was created about 1.5 months ago * Tunnelled cath to be inserted by GS today and patient started on dialysis 01/03 -2.4L; HD 01/04 -3L * Nephrology, Dr. Paiz consulted for dialysis management and appreciate recommendations. * Repeat renal function panel, magnesium and phose level tomorrow. * On phoslo and epogen with HD. * Monitor vital signs and strict I/O. * Care coordination arranging outpatient HD. (2) Chronic kidney disease (CKD), stage V: Code(s): N18.5 - Chronic kidney disease, stage 5 Status: Chronic Assessment and Plan: As above. (3) Diabetes: Code(s): E11.9 - Type 2 diabetes mellitus without complications Status: Chronic Assessment and Plan: * A1c 6.8%. * Glucose 79 mg/dL with poor appetite today. Hold lantus for now. Continue to treat with accu-cheks AC/HS with aspart sliding scale insulin. * Resume lantus at adjusted dose if >180 mg/dL. * Hypoglycemia protocol. (4) Congestive heart failure: Qualifiers: Heart failure chronicity: acute on chronic Heart failure type: diastolic Qualified Code(s): I50.33 - Acute on chronic diastolic (congestive) heart failure Code(s): I50.9 - Heart failure, unspecified Status: Acute Assessment and Plan: Acute on chronic diastolic CHF exacerbation. Patient is complaining of shortness of breath on admission, Echo from 12/07/2021 shows EF of 60-65% with grade 1 diastolic dysfunction. Presumed secondary to volume overload and renal failure. * Chest x-ray shows cardiomegaly and congestive changes. * Continue home Lasix 40 mg p.o. b.i.d., carvedilol 12.5 mg p.o. b.i.d. * Dialysis initiated 01/03/22 * Daily weights * Strict I&Os (5) Anemia: Code(s): D64.9 - Anemia, unspecified Status: Chronic Assessment and Plan: H&H is 8.5/27.7. Hgb 9.3-8.2 previous admission. Anemia is related to recent GI bleed, iron deficiency and chronic disease with end-stage renal disease. * Anemia labs iron 18, TIBC 321, % saturation 6, ferritin 93.10, B12 208 * IV Venofer 200 mg daily ordered x5. Day 2. * Continue cyanocobalamin 1,000 mcg PO daily. * Monitor H/H * Transfuse with HD as indicated * Dr. Olivia following outpatient (6) Hypertension: Code(s): I10 - Essential (primary) hypertension Status: Chronic Assessment and Plan: * Continue home carvedilol 12.5 p.o. b.i.d, furosemide 40 mg p.o. b.i.d * Consider adding adjunct medication if continues to remain elevated. Will reassess tomorrow after 2nd HD session. * PRN hydralazine 10 mg Q6 hours PRN SBP >160 or DBP>100 * Monitor vitals on medication and dialysis (7) Hyperlipidemia, unspecified: Code(s): E78.5 - Hyperlipidemia, unspecified Status: Chronic Assessment and Plan: * Continue home atorvastatin 80 mg p.o. at night Plan Diet: Consistent carb/heart healthy CODE STATUS: FULL CODE Disposition: home when medically stable. Time Spent With Patient Time with patient: 15 - 25 minutes Subjective Date/time seen: 01/04/22 13:49 Interval history: Patient is a 66 yo male with medical history of anemia, BPH, COPD, diastolic heart failure, insulin dependent diabetes, and chronic kidney disease stage 5 who presented t
--- NOTE | 2022-01-04 13:49 | PM.IMPN ---
Progress Note: A&P Assessment and Plan (1) Uremia: Code(s): N19 - Unspecified kidney failure Status: Acute Assessment and Plan: On admission, BUN/Cr is 63/5.40, GFR 11, and Creatinine clearance is 15 Fistula was created about 1.5 months ago Tunnelled cath to be inserted by GS today and patient started on dialysis 01/03 -2.4L; HD 01/04 -3L Nephrology, Dr. Paiz consulted for dialysis management and appreciate recommendations. Repeat renal function panel, magnesium and phose level tomorrow. On phoslo and epogen with HD. Monitor vital signs and strict I/O. Care coordination arranging outpatient HD. (2) Chronic kidney disease (CKD), stage V: Code(s): N18.5 - Chronic kidney disease, stage 5 Status: Chronic Assessment and Plan: As above. (3) Diabetes: Code(s): E11.9 - Type 2 diabetes mellitus without complications Status: Chronic Assessment and Plan: A1c 6.8%. Glucose 79 mg/dL with poor appetite today. Hold lantus for now. Continue to treat with accu-cheks AC/HS with aspart sliding scale insulin. Resume lantus at adjusted dose if >180 mg/dL. Hypoglycemia protocol. (4) Congestive heart failure: Qualifiers: Heart failure chronicity: acute on chronic Heart failure type: diastolic Qualified Code(s): I50.33 - Acute on chronic diastolic (congestive) heart failure Code(s): I50.9 - Heart failure, unspecified Status: Acute Assessment and Plan: Acute on chronic diastolic CHF exacerbation. Patient is complaining of shortness of breath on admission, Echo from 12/07/2021 shows EF of 60-65% with grade 1 diastolic dysfunction. Presumed secondary to volume overload and renal failure. Chest x-ray shows cardiomegaly and congestive changes. Continue home Lasix 40 mg p.o. b.i.d., carvedilol 12.5 mg p.o. b.i.d. Dialysis initiated 01/03/22 Daily weights Strict I&Os (5) Anemia: Code(s): D64.9 - Anemia, unspecified Status: Chronic Assessment and Plan: H&H is 8.5/27.7. Hgb 9.3-8.2 previous admission. Anemia is related to recent GI bleed, iron deficiency and chronic disease with end-stage renal disease. Anemia labs iron 18, TIBC 321, % saturation 6, ferritin 93.10, B12 208 IV Venofer 200 mg daily ordered x5. Day 2. Continue cyanocobalamin 1,000 mcg PO daily. Monitor H/H Transfuse with HD as indicated Dr. Olivia following outpatient (6) Hypertension: Code(s): I10 - Essential (primary) hypertension Status: Chronic Assessment and Plan: Continue home carvedilol 12.5 p.o. b.i.d, furosemide 40 mg p.o. b.i.d Consider adding adjunct medication if continues to remain elevated. Will reassess tomorrow after 2nd HD session. PRN hydralazine 10 mg Q6 hours PRN SBP >160 or DBP>100 Monitor vitals on medication and dialysis (7) Hyperlipidemia, unspecified: Code(s): E78.5 - Hyperlipidemia, unspecified Status: Chronic Assessment and Plan: Continue home atorvastatin 80 mg p.o. at night Plan Diet: Consistent carb/heart healthy CODE STATUS: FULL CODE Disposition: home when medically stable. Time Spent With Patient Time with patient: 15 - 25 minutes Subjective Date/time seen: 01/04/22 13:49 Interval history: Patient is a 66 yo male with medical history of anemia, BPH, COPD, diastolic heart failure, insulin dependent diabetes, and chronic kidney disease stage 5 who presented to the hospital as a direct admit from Dr. Paiz's office for evaluation of increased shortness of breath. Patient was found to have uremia and volume overload. He was admitted for initiation of hemodialysis. Patient reports blurred vision when he started dialysis today. He does endorse previous eye surgery with implants and he uses drops twice daily and sometimes has blurry vision with this. He is tired after HD, but reports his breathing feels more comfortable and leg swelli
[2022-01-04] MEDS: FUROSEMIDE 80 MG TABLET PO (16:41)
[2022-01-04 16:42] LABS: Glucose Point of Care 161 mg/dl (65-105)
[2022-01-04] MEDS: polyethylene glycoL 3350 17 GM POWD.PACK PO (16:42)
[2022-01-04 20:54] LABS: Glucose Point of Care 256 mg/dl (65-105)
[2022-01-04] MEDS: hydrALAZINE HCL 20 MG/ML VIAL 10 MG IV PUSH (22:16)
[2022-01-04] MEDS: TAMSULOSIN HCL 0.4 MG CAPSULE PO (22:17)
[2022-01-04] MEDS: HYDROcodone/acetaminophen (*CRX) 5-325 MG TABLET 1 TAB PO (22:17)
[2022-01-04] MEDS: ATORVASTATIN 40 MG TABLET 80 MG PO (22:17)
[2022-01-05] VITALS (12 sets, daily range): BP systolic 124–175; BP diastolic 51–81; PULSE 75–88; RESP 16–20; TEMP 35.7–37.2; O2SAT 91–100
[2022-01-05 05:24] LABS: Hematocrit 25.3 % (42.0-52.0); Mean Corpuscular HGB Conc 31.6 g/dl (32-36); Mean Corpuscular Hemoglobin 30.5 pg (26-34); Mean Corpuscular Volume 96.6 fl (80-100); Mean Platelet Volume 10.3 fl (7.4-10.4); Platelet Count Result 140 k/mm3 (150-375); Red Blood Count 2.62 M/mm3 (4.6-6.20); Red Cell Distribution Width 17.8 % (11.5-14.5); White Blood Count 5.3 K/mm3 (4.5-10.0)
[2022-01-05 05:36] LABS: Albumin Level 3.1 g/dL (3.5-5.1); Anion Gap 5 mmol/L (8-16); Blood Urea Nitrogen 42 mg/dL (9-20); Calcium 7.8 mg/dL (8.4-10.2); Carbon Dioxide 35 mmol/L (22-30); Chloride 98 mmol/L (98-107); Estimated CRCL calculation 21 ml/min; Estimated Glomerular Filt Rate 16; Glucose 205 mg/dL (65-110); Phosphorus 3.6 mg/dL (2.5-4.5); Potassium 4.3 mmol/L (3.4-5.0); Sodium 138 mmol/L (137-145)
[2022-01-05 08:08] LABS: Glucose Point of Care 196 mg/dl (65-105)
[2022-01-05] MEDS: INSULIN GLARGINE (*BKC) 100 UNITS/ML 15 UNITS SUB-Q (08:52)
[2022-01-05] MEDS: IRON SUCROSE COMPLEX 200 MG in SODIUM CHLORIDE 0.9% IV 50 ML 120 MG IVPB (08:52)
[2022-01-05] MEDS: CALCIUM ACETATE 667 MG TABLET PO ×3 (08:53→17:44)
[2022-01-05] MEDS: CYANOCOBALAMIN 1,000 MCG TABLET 1000 MCG PO (08:53)
[2022-01-05] MEDS: carvediloL 12.5 MG TABLET PO ×2 (08:53→20:05)
[2022-01-05] MEDS: EZETIMIBE 10 MG TABLET PO (08:53)
[2022-01-05] MEDS: CHOLECALCIFEROL 1,000 UNITS TABLET 5000 UNITS PO ×2 (08:53→17:44)
[2022-01-05] MEDS: allopurinoL 100 MG TABLET PO ×2 (08:53→20:06)
[2022-01-05] MEDS: FUROSEMIDE 80 MG TABLET PO ×2 (08:54→17:44)
[2022-01-05] MEDS: prednisoLONE ACETATE 1% OPHTH 5 ML 1 DROP EACH EYE ×2 (08:54→17:45)
[2022-01-05] MEDS: PANTOPRAZOLE 40 MG TABLET PO (08:54)
[2022-01-05] MEDS: VITAMIN B CMPLX/VIT C/FOLIC AC 1 CAPSULE 1 CAP PO (08:55)
[2022-01-05] MEDS: SILVERGEL (ELTA) 45 ML 1 APPLIC TOPICAL (09:04)
--- NOTE | 2022-01-05 10:15 | PM.PNNEP ---
Progress Note: A&P Additional Plan 1. Freddie has chronic kidney disease stage 5D he received dialysis Thursday and Thursday. He had 2L and 3L off respectively. Will treat again tomorrow morning. 2. The patient has hypertension. His blood pressure is much better, now 120-140. Will continue same medications for now. 3. The patient has diabetes. he is on Accu-Cheks and sliding scale insulin per hospitalist. 4. The patient has anemia. On iron and also Epogen. 5. Volume overload. remove more fluid with dialysis tomorrow. will continue diuretics to make use of residual kidney function. He does say that he his made very little urine since he started dialysis. Check a bladder scan to be complete. 6.n/v due to uremia most likely. This seems marginally better. 7.gout no ex lately 8.hyperlipidemia on atorvastatin and zetia. 9. phosphorus levels a little bit high. On PhosLo. 10. the patient has vague chest symptoms. It is possible that the nausea might be an anginal equivalent but I doubt this. Just because of his risk factor profile we should get a stress test. Subjective Date/time seen: 01/05/22 10:15 Interval history: Freddei is sitting at the side of the bed reading his Bible. Edema is better. Breathing is the same. Still has some nausea but has not vomited so far.. Exam Narrative: WDWN in NAD skin no rash head ncat lungs clear bilaterally cor reg no rub or gallop abd BS+ nontender and soft ext no edema or cyanosis. Objective Data Vital Signs Vital Signs: Vital Signs - 24 hr 01/04/22 10:20 01/04/22 10:40 01/04/22 11:00 Temperature Pulse Rate 77 78 80 Respiratory Rate Blood Pressure 155/76 H 160/80 H 166/92 H Pulse Oximetry Oxygen Delivery Oxygen Flow Rate 01/04/22 11:20 01/04/22 11:40 01/04/22 11:54 Temperature Pulse Rate 79 78 79 Respiratory Rate Blood Pressure 175/88 H 173/87 H 170/84 H Pulse Oximetry Oxygen Delivery Oxygen Flow Rate 01/04/22 12:07 01/04/22 12:00 01/04/22 12:00 Temperature 36.7 C 35.7 C L Pulse Rate 80 80 83 Respiratory Rate 16 18 Blood Pressure 169/87 H 160/71 H Pulse Oximetry 93 Oxygen Delivery Oxygen Flow Rate 01/04/22 16:00 01/04/22 16:00 01/04/22 20:00 Temperature 36.6 C 36.8 C Pulse Rate 80 80 81 Respiratory Rate 18 20 Blood Pressure 169/69 H 175/77 H Pulse Oximetry 93 94 Oxygen Delivery Oxygen Flow Rate 01/04/22 22:17 01/04/22 20:00 01/05/22 00:00 Temperature 36.6 C Pulse Rate 82 79 Respiratory Rate 20 Blood Pressure 144/73 H Pulse Oximetry 96 98 Oxygen Delivery Nasal Cannula Oxygen Flow Rate 3 01/04/22 20:00 01/05/22 00:00 01/05/22 04:08 Temperature Pulse Rate 82 78 75 Respiratory Rate Blood Pressure Pulse Oximetry Oxygen Delivery Oxygen Flow Rate 01/05/22 04:00 01/05/22 08:53 01/05/22 08:51 Temperature 36.4 C 36.6 C Pulse Rate 77 80 79 Respiratory Rate 18 18 Blood Pressure 144/69 H 124/51 L Pulse Oximetry 91 95 Oxygen Delivery Oxygen Flow Rate 01/05/22 09:34 Temperature Pulse Rate 77 Respiratory Rate 18 Blood Pressure Pulse Oximetry 93 Oxygen Delivery Nasal Cannula Oxygen Flow Rate 3 Intake/Output Intake/Output: Intake & Output 01/02/22 01/03/22 01/04/22 01/05/22 23:59 23:59 23:59 23:59 Intake Total 794 670 0276 240 Output Total 0 3050 4480 Balance 240 -2450 -3400 240 Meds/Results Medications: Active Medications Generic Name Dose Route Start Last Admin Trade Name Robbi PRN Reason Stop Dose Admin Acetaminophen 650 mg 01/02/22 15:40 Acetaminophen 325 Mg Tablet PO Q4H PRN Mild Pain (1-3) or Fever Hydrocodone Bitart/Acetaminophen 1 tab 01/02/22 15:40 01/04/22 22:17 Hydrocodone/Acetaminophen (*Crx) 5-325 Mg Tablet PO 1 tab Q4H PRN Administration Moderate Pain (4-10) Albuterol 1.25 mg 01/02/22 19:49 Albuterol Sulfate Neb 2.5 Mg/3 Ml Inh INHALAT
[2022-01-05 11:47] LABS: Glucose Point of Care 292 mg/dl (65-105)
[2022-01-05] MEDS: INSULIN ASPART (*BKC) 100 UNITS/ML SUB-Q (12:31)
--- NOTE | 2022-01-05 14:26 | P.PNIM_ITS ---
Progress Note: A&P Assessment and Plan (1) Uremia: Code(s): N19 - Unspecified kidney failure Status: Acute Assessment and Plan: On admission, BUN/Cr is 63/5.40, GFR 11, and Creatinine clearance is 15 * Fistula created 1.5 months ago * Tunnelled cath to be inserted by and patient started on dialysis 01/03 - 2.4L; HD 01/04 -3L * Nephrology following for dialysis management and appreciate recommendations. * Trend renal function panel, magnesium and phose levels. * On phoslo with improved phosphorus level. On epogen with HD. * Monitor vital signs and strict I/O. * Care coordination arranging outpatient HD. (2) Chronic kidney disease (CKD), stage V: Code(s): N18.5 - Chronic kidney disease, stage 5 Status: Chronic Assessment and Plan: As above. (3) Diabetes: Code(s): E11.9 - Type 2 diabetes mellitus without complications Status: Chronic Assessment and Plan: * A1c 6.8%. * Glucose 79 mg/dL with poor appetite yesterday. Lantus held. Patient has improved appetite and blood glucose 192 fasting and >200 before lunch. * Lantus 10 units daily started. Consider increasing if remains hyperglycemic, however, patient will be NPO after midnight for stress test tomorrow and planned HD. * Continue with accu-cheks AC/HS with aspart sliding scale insulin. * Hypoglycemia protocol. (4) Congestive heart failure: Qualifiers: Heart failure type: diastolic Heart failure chronicity: acute on chronic Qualified Code(s): I50.33 - Acute on chronic diastolic (congestive) heart failure Code(s): I50.9 - Heart failure, unspecified Status: Acute Assessment and Plan: Acute on chronic diastolic CHF exacerbation. Patient is complaining of shortness of breath on admission, Echo from 12/07/2021 shows EF of 60-65% with grade 1 diastolic dysfunction. Presumed secondary to volume overload and renal failure. * Chest x-ray shows cardiomegaly and congestive changes. * Lasix increased to 80 mg p.o. b.i.d. * Continue carvedilol 12.5 mg p.o. b.i.d. Consider increasing if remains hypertensive. * Dialysis initiated 01/03/22 * Daily weights * Strict I&Os (5) Anemia: Code(s): D64.9 - Anemia, unspecified Status: Chronic Assessment and Plan: H&H is 8.5/27.7. Hgb 9.3-8.2 previous admission. Anemia is related to recent GI bleed, iron deficiency and chronic disease with end-stage renal disease. * Anemia labs iron 18, TIBC 321, % saturation 6, ferritin 93.10, B12 208 * Continue IV Venofer 200 mg daily ordered x5. Day 3. * Continue cyanocobalamin 1,000 mcg PO daily. * Monitor H/H * Transfuse with HD as indicated * Dr. Olivia following outpatient (6) Hypertension: Code(s): I10 - Essential (primary) hypertension Status: Chronic Assessment and Plan: * Continue home carvedilol 12.5 p.o. b.i.d, furosemide 80 mg p.o. b.i.d * Consider adding adjunct medication or increasing coreg, if continues to remain elevated. * PRN hydralazine 10 mg Q6 hours PRN SBP >160 or DBP>100 * Monitor vitals on medication and dialysis (7) Hyperlipidemia, unspecified: Code(s): E78.5 - Hyperlipidemia, unspecified Status: Chronic Assessment and Plan: * Continue home atorvastatin 80 mg p.o. at night (8) Coronary artery disease: Qualifiers: Coronary Disease-Associated Artery/Lesion type: [place] artery [place] vs. transplanted heart: [place] heart Associated angina: without angina Qualified Code(s): I25.10 - Ath
--- NOTE | 2022-01-05 14:26 | PM.IMPN ---
Progress Note: A&P Assessment and Plan (1) Uremia: Code(s): N19 - Unspecified kidney failure Status: Acute Assessment and Plan: On admission, BUN/Cr is 63/5.40, GFR 11, and Creatinine clearance is 15 Fistula created 1.5 months ago Tunnelled cath to be inserted by and patient started on dialysis 01/03 -2.4L; HD 01/04 -3L Nephrology following for dialysis management and appreciate recommendations. Trend renal function panel, magnesium and phose levels. On phoslo with improved phosphorus level. On epogen with HD. Monitor vital signs and strict I/O. Care coordination arranging outpatient HD. (2) Chronic kidney disease (CKD), stage V: Code(s): N18.5 - Chronic kidney disease, stage 5 Status: Chronic Assessment and Plan: As above. (3) Diabetes: Code(s): E11.9 - Type 2 diabetes mellitus without complications Status: Chronic Assessment and Plan: A1c 6.8%. Glucose 79 mg/dL with poor appetite yesterday. Lantus held. Patient has improved appetite and blood glucose 192 fasting and >200 before lunch. Lantus 10 units daily started. Consider increasing if remains hyperglycemic, however, patient will be NPO after midnight for stress test tomorrow and planned HD. Continue with accu-cheks AC/HS with aspart sliding scale insulin. Hypoglycemia protocol. (4) Congestive heart failure: Qualifiers: Heart failure type: diastolic Heart failure chronicity: acute on chronic Qualified Code(s): I50.33 - Acute on chronic diastolic (congestive) heart failure Code(s): I50.9 - Heart failure, unspecified Status: Acute Assessment and Plan: Acute on chronic diastolic CHF exacerbation. Patient is complaining of shortness of breath on admission, Echo from 12/07/2021 shows EF of 60-65% with grade 1 diastolic dysfunction. Presumed secondary to volume overload and renal failure. Chest x-ray shows cardiomegaly and congestive changes. Lasix increased to 80 mg p.o. b.i.d. Continue carvedilol 12.5 mg p.o. b.i.d. Consider increasing if remains hypertensive. Dialysis initiated 01/03/22 Daily weights Strict I&Os (5) Anemia: Code(s): D64.9 - Anemia, unspecified Status: Chronic Assessment and Plan: H&H is 8.5/27.7. Hgb 9.3-8.2 previous admission. Anemia is related to recent GI bleed, iron deficiency and chronic disease with end-stage renal disease. Anemia labs iron 18, TIBC 321, % saturation 6, ferritin 93.10, B12 208 Continue IV Venofer 200 mg daily ordered x5. Day 3. Continue cyanocobalamin 1,000 mcg PO daily. Monitor H/H Transfuse with HD as indicated Dr. Olivia following outpatient (6) Hypertension: Code(s): I10 - Essential (primary) hypertension Status: Chronic Assessment and Plan: Continue home carvedilol 12.5 p.o. b.i.d, furosemide 80 mg p.o. b.i.d Consider adding adjunct medication or increasing coreg, if continues to remain elevated. PRN hydralazine 10 mg Q6 hours PRN SBP >160 or DBP>100 Monitor vitals on medication and dialysis (7) Hyperlipidemia, unspecified: Code(s): E78.5 - Hyperlipidemia, unspecified Status: Chronic Assessment and Plan: Continue home atorvastatin 80 mg p.o. at night (8) Coronary artery disease: Qualifiers: Coronary Disease-Associated Artery/Lesion type: [place] artery [place] vs. transplanted heart: [place] heart Associated angina: without angina Qualified Code(s): I25.10 - Atherosclerotic heart disease of [place] coronary artery without angina pectoris Code(s): I25.10 - Atherosclerotic heart disease of [place] coronary artery without angina pectoris Status: Chronic Assessment and Plan: Patient intermittent c/o chest pain with many risk factors. - Lexiscan tomorrow. - continue lipitor, coreg, and tight glucose control. - patient is on PPI for GERD. Plan Diet: Consistent carb/heart he
[2022-01-05 17:07] LABS: Glucose Point of Care 143 mg/dl (65-105)
[2022-01-05 20:05] LABS: Glucose Point of Care 149 mg/dl (65-105)
[2022-01-05] MEDS: ATORVASTATIN 40 MG TABLET 80 MG PO (20:05)
[2022-01-05] MEDS: TAMSULOSIN HCL 0.4 MG CAPSULE PO (20:05)
[2022-01-05] MEDS: HYDROcodone/acetaminophen (*CRX) 5-325 MG TABLET 1 TAB PO (20:08)
[2022-01-06] VITALS (25 sets, daily range): BP systolic 141–197; BP diastolic 65–95; PULSE 75–91; RESP 16–22; TEMP 36.3–37.2; O2SAT 90–99
[2022-01-06] MEDS: hydrALAZINE HCL 20 MG/ML VIAL 10 MG IV PUSH ×2 (05:51→20:18)
[2022-01-06 06:08] LABS: Hematocrit 26.3 % (42.0-52.0); Hemoglobin 8.3 g/dL (14.0-18.0); Mean Corpuscular HGB Conc 31.6 g/dl (32-36); Mean Corpuscular Hemoglobin 30.5 pg (26-34); Mean Corpuscular Volume 96.7 fl (80-100); Mean Platelet Volume 10.6 fl (7.4-10.4); Platelet Count Result 148 k/mm3 (150-375); Red Blood Count 2.72 M/mm3 (4.6-6.20); Red Cell Distribution Width 17.9 % (11.5-14.5); White Blood Count 6.3 K/mm3 (4.5-10.0)
[2022-01-06 06:25] LABS: Albumin Level 3.1 g/dL (3.5-5.1); Anion Gap 7 mmol/L (8-16); Blood Urea Nitrogen 47 mg/dL (9-20); Calcium 8.3 mg/dL (8.4-10.2); Carbon Dioxide 33 mmol/L (22-30); Chloride 96 mmol/L (98-107); Estimated CRCL calculation 18 ml/min; Estimated Glomerular Filt Rate 13; Glucose 149 mg/dL (65-110); Phosphorus 3.9 mg/dL (2.5-4.5); Potassium 4.3 mmol/L (3.4-5.0); Sodium 136 mmol/L (137-145)
--- NOTE | 2022-01-06 07:23 | PM.PNNEP ---
Progress Note: A&P Additional Plan 1. Freddie has chronic kidney disease stage 5D he received dialysis Thursday and Thursday. He had 2L and 3L off respectively. Will treat again this morning. Hep a B and C are all negative. Hepatitis-B core antibody is still pending. 2. The patient has hypertension. His blood pressure is ranging from 120-160. Will add irbesartan 150 daily. 3. The patient has diabetes. he is on Accu-Cheks and sliding scale insulin per hospitalist. 4. The patient has anemia. On iron and also Epogen. He Will have had 4 doses of the iron by end of day today. 5. Volume overload. remove more fluid with dialysis today. 6.n/v due to uremia most likely. This seems marginally better. 7.gout no ex lately 8.hyperlipidemia on atorvastatin and zetia. 9. phosphorus levels a little bit high. On PhosLo. 10. the patient has vague chest symptoms. To get a stress test today. Subjective Date/time seen: 01/06/22 07:23 Interval history: Freddie is comfortable lying in bed. Some shortness of breath at times, for instance coming back from the bathroom. Nausea still present but no vomiting yesterday. Exam Narrative: WDWN in NAD skin no rash Or subcu nodules head ncat lungs Decreased breath sounds at both bases. cor reg no rub or gallop abd BS+ nontender and soft ext no edema or cyanosis. Objective Data Vital Signs Vital Signs: Vital Signs - 24 hr 01/05/22 08:53 01/05/22 08:51 01/05/22 09:34 Temperature 36.6 C Pulse Rate 80 79 77 Respiratory Rate 18 18 Blood Pressure 124/51 L Pulse Oximetry 95 93 Oxygen Delivery Nasal Cannula Oxygen Flow Rate 3 01/05/22 08:45 01/05/22 08:45 01/05/22 12:00 Temperature Pulse Rate 81 78 Respiratory Rate Blood Pressure Pulse Oximetry 93 Oxygen Delivery Nasal Cannula Oxygen Flow Rate 2 01/05/22 12:00 01/05/22 16:00 01/05/22 16:00 Temperature 36.4 C 35.7 C L Pulse Rate 77 76 78 Respiratory Rate 16 20 Blood Pressure 164/77 H 175/81 H Pulse Oximetry 94 100 Oxygen Delivery Oxygen Flow Rate 01/05/22 20:05 01/05/22 20:00 01/05/22 20:00 Temperature 37.2 C Pulse Rate 88 80 80 Respiratory Rate 18 Blood Pressure 167/72 H Pulse Oximetry 94 Oxygen Delivery Oxygen Flow Rate 01/05/22 23:46 01/06/22 00:00 01/06/22 03:59 Temperature 37.1 C 37.2 C Pulse Rate 80 78 80 Respiratory Rate 18 18 Blood Pressure 167/72 H 167/82 H Pulse Oximetry 94 94 Oxygen Delivery Oxygen Flow Rate 01/06/22 04:00 Temperature Pulse Rate 80 Respiratory Rate Blood Pressure Pulse Oximetry Oxygen Delivery Oxygen Flow Rate Intake/Output Intake/Output: Intake & Output 01/03/22 01/04/22 01/05/22 01/06/22 23:59 23:59 23:59 23:59 Intake Total 600 1080 1020 Output Total 3050 4480 200 400 Balance -2450 -3400 820 -400 Meds/Results Medications: Active Medications Generic Name Dose Route Start Last Admin Trade Name Freq PRN Reason Stop Dose Admin Acetaminophen 650 mg 01/02/22 15:40 Acetaminophen 325 Mg Tablet PO Q4H PRN Mild Pain (1-3) or Fever Hydrocodone Bitart/Acetaminophen 1 tab 01/02/22 15:40 01/05/22 20:08 Hydrocodone/Acetaminophen (*Crx) 5-325 Mg Tablet PO 1 tab Q4H PRN Administration Moderate Pain (4-10) Albuterol 1.25 mg 01/02/22 19:49 Albuterol Sulfate Neb 2.5 Mg/3 Ml Inh INHALATION Q6H PRN shortness of breath or wheezing Allopurinol 100 mg 01/03/22 09:00 01/05/22 20:06 Allopurinol 100 Mg Tablet PO 100 mg Q12HR MADIE Administration Atorvastatin Calcium 80 mg 01/02/22 21:00 01/05/22 20:05 Atorvastatin 40 Mg Tablet PO 80 mg HS MADIE Administration Calcium Acetate 667 mg 01/04/22 12:00 01/05/22 17:44 Calcium Acetate 667 Mg Tablet PO 667 mg TIDWM MADIE Administration Carvedilol 12.5 mg 01/03/22 09:00 01/05/22 20:05 Carvedilol 12.5 Mg Tablet PO 12.5 mg Q12HR MADIE Administ
[2022-01-06 07:49] LABS: Glucose Point of Care 153 mg/dl (65-105)
--- NOTE | 2022-01-06 09:19 | PCCARD ---
ADAN STRESS TEST CANCELLED PER ISAURO YAP [employer] WITH [facility]
[2022-01-06] MEDS: EPOETIN ALFA-EPBX 10,000 UNITS/ML VIAL 10000 UNITS IV PUSH (10:49)
[2022-01-06] MEDS: SODIUM CHLORIDE 0.9% IV 1,000 ML 999 ML IV CONT (10:50)
--- NOTE | 2022-01-06 11:08 | ECG_ITS ---
Measurements Intervals [place] Rate: 91 P: 43 OK: 151 QRS: -11 QRSD: 104 T: -16 QT: 388 QTc: 478 Interpretive Statements SINUS RHYTHM BORDERLINE R WAVE PROGRESSION, ANTERIOR LEADS INFERIOR INFARCT, AGE INDETERMINATE BORDERLINE ST ABNORMALITY- HIGH LATERAL LEADS ABNORMAL ECG Electronically Signed On 01-06-2022 14:51:16 CDT by William Mayfield D.O.
--- NOTE | 2022-01-06 11:35 | P.PNIM_ITS ---
Progress Note: A&P Assessment and Plan (1) Uremia: Code(s): N19 - Unspecified kidney failure Status: Acute Assessment and Plan: On admission, BUN/Cr is 63/5.40, GFR 11, and Creatinine clearance is 15 * Fistula created 1.5 months ago * Tunnelled cath to be inserted by and patient started on dialysis 01/03 - 2.4L; HD 01/04 -3L; 01/06 -4L * Nephrology managing dialysis management. * Trend renal function panel, magnesium and phos levels. * On phoslo with improved phosphorus level. On epogen with HD. * Monitor vital signs and strict I/O. * Care coordination arranging outpatient HD. * Appears improving. (2) Chronic kidney disease (CKD), stage V: Code(s): N18.5 - Chronic kidney disease, stage 5 Status: Chronic Assessment and Plan: As above. (3) Diabetes: Code(s): E11.9 - Type 2 diabetes mellitus without complications Status: Chronic Assessment and Plan: * A1c 6.8%. * Glucose 115-153 mg/dL today. Lantus 10 units daily. * Continue with accu-cheks AC/HS with aspart sliding scale insulin. * Hypoglycemia protocol. (4) Congestive heart failure: Qualifiers: Heart failure type: diastolic Heart failure chronicity: acute on chronic Qualified Code(s): I50.33 - Acute on chronic diastolic (congestive) heart failure Code(s): I50.9 - Heart failure, unspecified Status: Acute Assessment and Plan: Acute on chronic diastolic CHF exacerbation. Patient is complaining of shortness of breath on admission, Echo from 12/07/2021 shows EF of 60-65% with grade 1 diastolic dysfunction. Presumed secondary to volume overload and renal failure. * Chest x-ray shows cardiomegaly and congestive changes. Repeat CXR tomorrow morning. * Lasix increased to 80 mg p.o. b.i.d. * Continue carvedilol 12.5 mg p.o. b.i.d. * Irbesartan 150 mg added for elevated BP. * Dialysis initiated 01/03/22 * Daily weights * Strict I&Os (5) Anemia: Code(s): D64.9 - Anemia, unspecified Status: Chronic Assessment and Plan: H&H is 8.5/27.7. Hgb 9.3-8.2 previous admission. Anemia is related to recent GI bleed, iron deficiency and chronic disease with end-stage renal disease. * Anemia labs iron 18, TIBC 321, % saturation 6, ferritin 93.10, B12 208 * Continue IV Venofer 200 mg daily ordered x5. Day 4. * Continue cyanocobalamin 1,000 mcg PO daily. * Monitor H/H * Transfuse with HD as indicated * Dr. Olivia following outpatient (6) Hypertension: Code(s): I10 - Essential (primary) hypertension Status: Chronic Assessment and Plan: * Continue home carvedilol 12.5 p.o. b.i.d, furosemide 80 mg p.o. b.i.d. Irbesartan 150 mg p.o. daily added. * Isodil 5 mg TID started 01/06 for angina. * PRN hydralazine 10 mg Q6 hours PRN SBP >160 or DBP>100 * Monitor vitals on medication and dialysis (7) Hyperlipidemia, unspecified: Code(s): E78.5 - Hyperlipidemia, unspecified Status: Chronic Assessment and Plan: * Continue home atorvastatin 80 mg p.o. at night (8) Coronary artery disease: Qualifiers: Coronary Disease-Associated Artery/Lesion type: [place] artery [place] vs. transplanted heart: [place] heart Associated angina: without angina Qualified Code(s): I25.10 - Atherosclerotic heart disease of [place] coronary artery without angina pectoris Code(s): I25.10 - Atherosclerotic heart disease of [place] coronary artery without angina pectoris Status: Chronic Assessment and Pl
--- NOTE | 2022-01-06 11:35 | PM.IMPN ---
Progress Note: A&P Assessment and Plan (1) Uremia: Code(s): N19 - Unspecified kidney failure Status: Acute Assessment and Plan: On admission, BUN/Cr is 63/5.40, GFR 11, and Creatinine clearance is 15 Fistula created 1.5 months ago Tunnelled cath to be inserted by and patient started on dialysis 01/03 -2.4L; HD 01/04 -3L; 01/06 -4L Nephrology managing dialysis management. Trend renal function panel, magnesium and phos levels. On phoslo with improved phosphorus level. On epogen with HD. Monitor vital signs and strict I/O. Care coordination arranging outpatient HD. Appears improving. (2) Chronic kidney disease (CKD), stage V: Code(s): N18.5 - Chronic kidney disease, stage 5 Status: Chronic Assessment and Plan: As above. (3) Diabetes: Code(s): E11.9 - Type 2 diabetes mellitus without complications Status: Chronic Assessment and Plan: A1c 6.8%. Glucose 115-153 mg/dL today. Lantus 10 units daily. Continue with accu-cheks AC/HS with aspart sliding scale insulin. Hypoglycemia protocol. (4) Congestive heart failure: Qualifiers: Heart failure type: diastolic Heart failure chronicity: acute on chronic Qualified Code(s): I50.33 - Acute on chronic diastolic (congestive) heart failure Code(s): I50.9 - Heart failure, unspecified Status: Acute Assessment and Plan: Acute on chronic diastolic CHF exacerbation. Patient is complaining of shortness of breath on admission, Echo from 12/07/2021 shows EF of 60-65% with grade 1 diastolic dysfunction. Presumed secondary to volume overload and renal failure. Chest x-ray shows cardiomegaly and congestive changes. Repeat CXR tomorrow morning. Lasix increased to 80 mg p.o. b.i.d. Continue carvedilol 12.5 mg p.o. b.i.d. Irbesartan 150 mg added for elevated BP. Dialysis initiated 01/03/22 Daily weights Strict I&Os (5) Anemia: Code(s): D64.9 - Anemia, unspecified Status: Chronic Assessment and Plan: H&H is 8.5/27.7. Hgb 9.3-8.2 previous admission. Anemia is related to recent GI bleed, iron deficiency and chronic disease with end-stage renal disease. Anemia labs iron 18, TIBC 321, % saturation 6, ferritin 93.10, B12 208 Continue IV Venofer 200 mg daily ordered x5. Day 4. Continue cyanocobalamin 1,000 mcg PO daily. Monitor H/H Transfuse with HD as indicated Dr. Olivia following outpatient (6) Hypertension: Code(s): I10 - Essential (primary) hypertension Status: Chronic Assessment and Plan: Continue home carvedilol 12.5 p.o. b.i.d, furosemide 80 mg p.o. b.i.d. Irbesartan 150 mg p.o. daily added. Isodil 5 mg TID started 01/06 for angina. PRN hydralazine 10 mg Q6 hours PRN SBP >160 or DBP>100 Monitor vitals on medication and dialysis (7) Hyperlipidemia, unspecified: Code(s): E78.5 - Hyperlipidemia, unspecified Status: Chronic Assessment and Plan: Continue home atorvastatin 80 mg p.o. at night (8) Coronary artery disease: Qualifiers: Coronary Disease-Associated Artery/Lesion type: [place] artery [place] vs. transplanted heart: [place] heart Associated angina: without angina Qualified Code(s): I25.10 - Atherosclerotic heart disease of [place] coronary artery without angina pectoris Code(s): I25.10 - Atherosclerotic heart disease of [place] coronary artery without angina pectoris Status: Chronic Assessment and Plan: Patient intermittent c/o chest pain with many risk factors. - Lexiscan with small perfusion defect noted, only half exam completed d/t patient emesis. Unknown if defect fixed or reversible. - Added isodil as above. - continue lipitor, coreg, and tight glucose control. - patient is on PPI for GERD. - Follow up outpatient with Cardiology. Plan Diet: Consistent carb/heart healthy CODE STATUS: FULL CODE Disposition: home when medically
[2022-01-06 13:09] LABS: Glucose Point of Care 115 mg/dl (65-105)
[2022-01-06] MEDS: IRON SUCROSE COMPLEX 200 MG in SODIUM CHLORIDE 0.9% IV 50 ML 120 MG IVPB (13:21)
[2022-01-06] MEDS: EZETIMIBE 10 MG TABLET PO (13:22)
[2022-01-06] MEDS: PANTOPRAZOLE 40 MG TABLET PO (13:22)
[2022-01-06] MEDS: CYANOCOBALAMIN 1,000 MCG TABLET 1000 MCG PO (13:23)
[2022-01-06] MEDS: allopurinoL 100 MG TABLET PO ×2 (13:23→20:18)
[2022-01-06] MEDS: IRBESARTAN 150 MG TABLET PO (13:24)
[2022-01-06] MEDS: prednisoLONE ACETATE 1% OPHTH 5 ML 1 DROP EACH EYE ×2 (13:24→17:31)
[2022-01-06] MEDS: CALCIUM ACETATE 667 MG TABLET PO ×2 (13:24→17:30)
[2022-01-06] MEDS: VITAMIN B CMPLX/VIT C/FOLIC AC 1 CAPSULE 1 CAP PO (13:25)
[2022-01-06] MEDS: SILVERGEL (ELTA) 45 ML 1 APPLIC TOPICAL (13:25)
[2022-01-06] MEDS: CHOLECALCIFEROL 1,000 UNITS TABLET 5000 UNITS PO ×2 (13:26→17:30)
[2022-01-06] MEDS: carvediloL 12.5 MG TABLET PO ×2 (13:27→20:18)
[2022-01-06 17:09] LABS: Glucose Point of Care 157 mg/dl (65-105)
[2022-01-06] MEDS: FUROSEMIDE 80 MG TABLET PO (17:30)
[2022-01-06] MEDS: polyethylene glycoL 3350 17 GM POWD.PACK PO (17:30)
[2022-01-06] MEDS: ISOSORBIDE DINITRATE 5 MG TABLET PO (17:30)
[2022-01-06] MEDS: ATORVASTATIN 40 MG TABLET 80 MG PO (20:17)
[2022-01-06] MEDS: TAMSULOSIN HCL 0.4 MG CAPSULE PO (20:18)
[2022-01-06 21:30] LABS: Glucose Point of Care 173 mg/dl (65-105)
[2022-01-07] VITALS (7 sets, daily range): BP systolic 117–148; BP diastolic 52–80; PULSE 76–85; RESP 18–22; TEMP 36.6–36.9; O2SAT 91–96
[2022-01-07] MEDS: ONDANSETRON INJ 4 MG/2 ML VIAL IV PUSH (00:41)
[2022-01-07 05:45] LABS: Hematocrit 26.9 % (42.0-52.0); Hemoglobin 8.5 g/dL (14.0-18.0); Mean Corpuscular HGB Conc 31.6 g/dl (32-36); Mean Corpuscular Hemoglobin 30.8 pg (26-34); Mean Corpuscular Volume 97.5 fl (80-100); Mean Platelet Volume 11.5 fl (7.4-10.4); Platelet Count Result 161 k/mm3 (150-375); Red Blood Count 2.76 M/mm3 (4.6-6.20); Red Cell Distribution Width 18.1 % (11.5-14.5); White Blood Count 6.3 K/mm3 (4.5-10.0)
[2022-01-07 05:55] LABS: Albumin Level 3.2 g/dL (3.5-5.1); Anion Gap 5 mmol/L (8-16); Blood Urea Nitrogen 31 mg/dL (9-20); Calcium 8.1 mg/dL (8.4-10.2); Carbon Dioxide 36 mmol/L (22-30); Chloride 94 mmol/L (98-107); Estimated CRCL calculation 21 ml/min; Estimated Glomerular Filt Rate 15; Glucose 205 mg/dL (65-110); Magnesium 1.9 mg/dL (1.6-2.3); Phosphorus 3.4 mg/dL (2.5-4.5); Potassium 4.1 mmol/L (3.4-5.0); Sodium 135 mmol/L (137-145)
[2022-01-07 07:47] LABS: Glucose Point of Care 189 mg/dl (65-105)
[2022-01-07] MEDS: CALCIUM ACETATE 667 MG TABLET PO ×2 (08:10→12:07)
[2022-01-07] MEDS: FUROSEMIDE 80 MG TABLET PO (08:10)
[2022-01-07] MEDS: CYANOCOBALAMIN 1,000 MCG TABLET 1000 MCG PO (08:10)
[2022-01-07] MEDS: allopurinoL 100 MG TABLET PO (08:10)
[2022-01-07] MEDS: EZETIMIBE 10 MG TABLET PO (08:10)
[2022-01-07] MEDS: IRBESARTAN 150 MG TABLET PO (08:10)
[2022-01-07] MEDS: PANTOPRAZOLE 40 MG TABLET PO (08:10)
[2022-01-07] MEDS: ISOSORBIDE DINITRATE 5 MG TABLET PO (08:10)
[2022-01-07] MEDS: VITAMIN B CMPLX/VIT C/FOLIC AC 1 CAPSULE 1 CAP PO (08:10)
[2022-01-07] MEDS: carvediloL 12.5 MG TABLET PO (08:11)
[2022-01-07] MEDS: CHOLECALCIFEROL 1,000 UNITS TABLET 5000 UNITS PO (08:12)
[2022-01-07] MEDS: IRON SUCROSE COMPLEX 200 MG in SODIUM CHLORIDE 0.9% IV 50 ML 120 MG IVPB (08:12)
[2022-01-07] MEDS: polyethylene glycoL 3350 17 GM POWD.PACK PO (08:12)
[2022-01-07] MEDS: INSULIN GLARGINE (*BKC) 100 UNITS/ML 10 UNITS SUB-Q (08:13)
[2022-01-07] MEDS: prednisoLONE ACETATE 1% OPHTH 5 ML 1 DROP EACH EYE (08:14)
[2022-01-07] MEDS: SILVERGEL (ELTA) 45 ML 1 APPLIC TOPICAL (08:15)
[2022-01-07 11:43] LABS: Glucose Point of Care 209 mg/dl (65-105)
--- NOTE | 2022-01-07 11:48 | PM.DS ---
DS: Admitting Diagnosis Discharge Date 01/07/2022 1148 Admitting Diagnosis Chronic kidney disease, stage V Acute on chronic diastolic CHF exacerbation Chronic iron deficiency anemia Hypertension DS: Discharge Diagnosis Discharge Diagnosis (1) Uremia: Code(s): N19 - Unspecified kidney failure Status: Acute Assessment and Plan: On admission, BUN/Cr is 63/5.40, GFR 11, and Creatinine clearance is 15. Patient was noted to be edematous, have pulmonary congestion, N/V and confusion. He was noted to have had fistula created approximately 1.5 months ago Nephrology was consulted on admission and General surgery was consulted for tunnelled HD catheter, which was placed on 01/03/22 without complications. Patient started dialysis on 01/03 with -2.4L removed. He then had dialysis on Thursday 01/04 -3L and 01/06 -4L. His renal function panel, magnesium and phosphorus levels were monitored. BUN 31, creatinine 3.9, GFR 15, K 4.1, Sodium 135, calcium 8.1, Phosphorus 3.4, and magnesium 1.9. Care coordination was consulted and patient was arranged for HD Tuesdays, , and Saturdays at [facility] in [place]. His next dialysis date is 01/09/22. He was treated with epogen with HD and continued on phoslo TID with meals. (2) Chronic kidney disease (CKD), stage V: Code(s): N18.5 - Chronic kidney disease, stage 5 Status: Chronic Assessment and Plan: As above. (3) Diabetes: Code(s): E11.9 - Type 2 diabetes mellitus without complications Status: Chronic Assessment and Plan: A1c 6.8% this admission. His blood sugars ranged from 79 to 209 mg/dL on lantus 10-15 units daily. He was also treated with aspart low dose sliding scale while inpatient. He was counseled to decrease Tresiba dose and monitor sugars when resuming Trulicity. (4) Congestive heart failure: Qualifiers: Heart failure chronicity: acute on chronic Heart failure type: diastolic Qualified Code(s): I50.33 - Acute on chronic diastolic (congestive) heart failure Code(s): I50.9 - Heart failure, unspecified Status: Acute Assessment and Plan: Acute on chronic diastolic CHF exacerbation. Patient is complaining of shortness of breath on admission, Echo from 12/07/2021 shows EF of 60-65% with grade 1 diastolic dysfunction. Presumed secondary to volume overload and renal failure. On admission patient was noted to have chest x-ray showing cardiomegaly and congestive changes. Repeat CXR 01/07/22 showed clearing of pulmonary edema. Patient's lasix was increased to 80 mg PO BID, continued on Coreg 12.5 mg BID PO. Irbesartan 150 mg PO daily and Isodil 5 mg PO TID were initiated for hypertension. Patient's weight was 106 kg on admission and discharge weight was 101 kg. I/O demonstrated -8810 mL loss. LE edema and dyspnea improved by discharge. (5) Anemia: Code(s): D64.9 - Anemia, unspecified Status: Chronic Assessment and Plan: His H&H was noted to be 8.5/27.7 on admission and was Hgb 9.3-8.2 his previous admissions. Anemia is related to recent GI bleed, iron deficiency and chronic disease with end-stage renal disease. Iron panel showed low serum iron 18, TIBC 321, % saturation 6, ferritin 93.10, low B12 208. He received IV Venofer 200 mg daily x 5 days, last dose 01/07/22. B12 1000 mcg and Nephrovite PO daily were added as well. He was continued on oral iron supplement 325 mg daily and Nephrovite 1 tab daily at discharge. He follows Dr. Olivia outpatient for anemia. (6) Hypertension: Code(s): I10 - Essential (primary) hypertension Status: Chronic Assessment and Plan: Patient was hypertensive during his hospital stay, even following dialysis, with SBP 140-180s/80s. He was continue on home carvedilol 12.5 mg PO BID. Furosemide was increased to 80 mg PO BID. Irbesartan 150 mg p.o. daily and Isodil 5 mg TID were added 01/06/22 for persistent hypertension. 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
[2022-01-07] MEDS: INSULIN ASPART (*BKC) 100 UNITS/ML SUB-Q (12:07)
[2022-01-08 04:36] LABS: Hepatitis A Antibody Total Nonreactive (Nonreactive)
[2022-01-08 04:58] LABS: Hepatitis B Core Ab Total Nonreactive (Nonreactive)
== END 2022-01-07 13:50 | disposition home or self-care (01) | DRG 291 ==
PROVIDERS: Family Medicine; Internal Medicine Nephrology; Nurse Practitioner; Surgery; Admitting Provider Internal Medicine; PCP Internal Medicine; Visit Provider Nurse Practitioner Family
PROC: 0JH63XZ Insertion of Tunneled Vascular Access Device into Chest Subcutaneous Tissue and Fascia, Percutaneous Approach (ICD-10-PCS; CPT 36908; principal; 2022-01-03 10:00)
DX: I13.2 Hypertensive heart and chronic kidney disease with heart failure and with stage 5 chronic kidney disease, or end stage renal disease (principal); I50.33 Acute on chronic diastolic (congestive) heart failure; N18.5 Chronic kidney disease, stage 5; D62 Acute posthemorrhagic anemia; E11.22 Type 2 diabetes mellitus with diabetic chronic kidney disease; N19 Unspecified kidney failure; D63.1 Anemia in chronic kidney disease; D50.9 Iron deficiency anemia, unspecified; E78.5 Hyperlipidemia, unspecified; I25.10 Atherosclerotic heart disease of native coronary artery without angina pectoris; J44.9 Chronic obstructive pulmonary disease, unspecified; N40.0 Benign prostatic hyperplasia without lower urinary tract symptoms; K21.9 Gastro-esophageal reflux disease without esophagitis; E11.43 Type 2 diabetes mellitus with diabetic autonomic (poly)neuropathy; Z95.5 Presence of coronary angioplasty implant and graft; Z99.2 Dependence on renal dialysis; Z95.0 Presence of cardiac pacemaker
CPT/HCPCS: 36415; 71046; 77001; 78452; 80053; 80069; 80074; 80076; 82948; 83036; 83735; 85025; 85027; 86704; 86705; 86706; 86708; 86709; 86803; 87340; 93005; 97161; A9270; A9502; C1750; G0257; J0360; J0690; J1644; J1756; J1815; J2405; J2704; J7030; J7040; Q5105

== ENCOUNTER 2022-10-14 10:25 | Emergency (ER) | payer MEDICARE, SELFPAY ==
[2022-10-14] VITALS (23 sets, daily range): BP systolic 112–135; BP diastolic 45–80; PULSE 78–98; RESP 18–20; TEMP 36.1–36.4; O2SAT 94–99
--- NOTE | ~2022-10-14 | CT_ITS ---
Non-contrast CT scan of the Abdomen and Pelvis Clinical indication: Abdominal pain Technique: 2.5 mm axial scans were obtained through the abdomen and pelvis without intravenous or or al contrast. Dose reduction technique was used on this scan by utilizing automated exposure control a nd iterative reconstruction technique. The dose-length product (DLP) was 789.10 mGy-cm. COMPARISON: 11/24/2021 Findings: Images through the lung bases reveal no abnormalities. There is no evidence of renal or ureteral calculi. The kidneys and the ureters are nondilated. Calcified hepatic and splenic granulomas are present. The pancreas, gallbladder, and adrenals appear normal. There are atherosclerotic calcifications of the aorta. There is no evidence of bowel obstruction. Images through the pelvis were performed. There is no evidence of ascites or lymphadenopathy. Urinary bladder unremarkable. Prostate gland and seminal vesicles are unremarkable. Stable area of dermal th ickening at the right lower quadrant, as detailed on prior exam. Impression: No acute abnormality. Evidence of prior granulomatous disease. Stable area of dermal thickening at the right lower quadrant subcutaneous soft tissues. Reviewed, dictated and finalized at [facility]. Impression: No acute abnormality. Evidence of prior granulomatous disease. Stable area of dermal thickening at the right lower quadrant subcutaneous soft tissues.
--- NOTE | 2022-10-14 10:36 | ECG_ITS ---
Measurements Intervals [place] Rate: 98 P: 31 OH: 148 QRS: -49 QRSD: 102 T: 48 QT: 364 QTc: 465 Interpretive Statements SINUS RHYTHM POSSIBLE LEFT ATRIAL ENLARGEMENT POSSIBLE LEFT VENTRICULAR HYPERTROPHY CONSIDER ANTERIOR INFARCT, AGE INDETERMINATE INFERIOR INFARCT, AGE INDETERMINATE BORDERLINE ST-T WAVE ABNORMALITY- HIGH LATERAL LEADS BASELINE ARTIFACT- I, III, AVR, AVL, AVF ABNORMAL ECG COMPARED TO ECG 01/06/2022 14:43:46 NO SIGNIFICANT CHANGES Electronically Signed On 10-14-2022 13:34:22 CDT by William Mayfield D.O.
--- NOTE | 2022-10-14 10:49 | ED.NAVMDI ---
HPI - Nausea/Vomiting/Diarrhea General Chief complaint: Nausea/Vomiting/Diarrhea Stated complaint: N/V, hypotension after dialysis Time Seen by Provider: 10/14/22 10:48 History of Present Illness HPI Narrative: Patient presents here from dialysis, he got nauseous and threw up. Last night he also had some stomach upset. Currently feeling much better and denies any symptoms, no fevers or chills, cough or difficulty breathing, chest pain, he does not make much urine and there is no pain when he does Related Data Home Medications Medication Instructions Recorded Confirmed calcium acetate(phosphat bind) 667 667 mg PO TIDWM 08/15/21 10/06/22 mg capsule omega-3 fatty acids-vitamin E 1,000 cap PO BID 08/29/21 10/06/22 1,000 mg capsule cholecalciferol (vitamin D3) 250 5,000 unit PO BID 12/05/21 10/06/22 mcg (10,000 unit) capsule nitroglycerin 0.4 mg sublingual 0.4 mg sublingual Q5M PRN Chest 12/05/21 10/06/22 tablet Pain albuterol sulfate 2.5 mg/3 mL 1.25 mg inhalation Q6H PRN 01/02/22 10/06/22 (0.083 %) solution for nebulization shortness of breath or wheezing ezetimibe 10 mg tablet 10 mg PO DAILY 01/02/22 10/06/22 allopurinol 100 mg tablet 100 mg PO ONCE 06/17/22 10/06/22 furosemide 80 mg tablet 80 mg PO DAILY 09/08/22 10/06/22 Allergies Allergy/AdvReac Type Severity Reaction Status Date / Time Iodinated Contrast Media Allergy Unknown Hives Verified 10/06/22 09:03 lisinopril AdvReac Cough Verified 10/06/22 09:03 Review of Systems Review of Systems: CONST: No fever. HEENT: No sore throat C/V: No chest pain RESP: No cough GI: Nausea and vomiting with abdominal pain, now resolved : No dysuria. M/S: No joint pain. SKIN: No rash. NEURO: [No headache or focal numbness or weakness] PSYCH: [No depression] [facility] Past Medical History Medical History Benign prostatic hyperplasia Body mass index (BMI) greater than 30 (01/18/19) Chronic anemia Chronic diastolic congestive heart failure Chronic obstructive pulmonary disease Coronary artery disease Catheterization and 2006 showed a chronically occluded RCA. In 2017 he had a drug-eluting stent to the proximal left anterior descending. Dialysis patient Diastolic congestive heart failure Echocardiogram on 01/31/2021 showed normal LV systolic function with moderately increased LV wall thickness and grade 1 diastolic dysfunction with an EF estimated 55%. DM renal manif type II, uncontrolled Duodenal ulcer (11/2021) Essential hypertension Hemoptysis Hyperlipidemia, unspecified Hypertension Insulin dependent type 2 diabetes mellitus Ischemic cardiomyopathy Laryngospasms Melanemia Onychomycosis Orthostasis Related to autonomic dysfunction from his diabetes. Stage 5 chronic kidney disease Type 2 diabetes mellitus with diabetic nephropathy Surgical History Surgical History History of ankle surgery Left History of esophagogastroduodenoscopy History of eye surgery Laser eye surgery. Status post cardiac pacemaker procedure His 1st pacemaker was placed in his 30s for sinus pause, syncope and bradycardia and he had generator changes in 2002, 2006, and 2011. His RV lead has high thresholds and he was not pacing in also it was turned off. Status post creation of arteriovenous fistula Status post insertion of drug-eluting stent into left anterior descending (LAD) artery for coronary artery disease Family History Family History Father Family history of premature coronary heart disease, Onset Age: 53 Cerebrovascular accident Patient's father is Diabetes mellitus Hypertension Family history of cardiovascular disease Kidney disease Sibling Carcinoma of colon, Onset Age: 39 Mother Patient's mother is , Onset Age: 73 Social History Social History (Reviewed 10/14/22 @ 15:14 by Angel
[2022-10-14] MEDS: ONDANSETRON INJ 4 MG/2 ML VIAL IV PUSH (12:21)
[2022-10-14 13:15] LABS: Basophils Percent Auto 0.2 % (0.2-1.2); Hematocrit 35.5 % (42.0-52.0); Hemoglobin 11.8 g/dL (14.0-18.0); Immature Granulocyte Absolute 0.08 K/mm3 (0.00-0.031); Immature Granulocyte Percent A 0.5 % (0-0.5); Lymphocytes Percent Auto 3.9 % (18.3-44.2); Mean Corpuscular HGB Conc 33.2 g/dl (32-36); Mean Corpuscular Hemoglobin 34.2 pg (26-34); Mean Corpuscular Volume 102.9 fl (80-100); Mean Platelet Volume 9.2 fl (7.4-10.4); Monocytes Absolute Auto 1.1 K/mm3 (0.1-0.6); Monocytes Percent Auto 7.3 % (2.6-8.5); Neutrophils Absolute Auto 13.7 K/mm3 (1.3-6.7); Neutrophils Percent Auto 88.1 % (45.5-73.1); Platelet Count Result 121 k/mm3 (150-375); Red Blood Count 3.45 M/mm3 (4.6-6.20); Red Cell Distribution Width 12.9 % (11.5-14.5); White Blood Count 15.5 K/mm3 (4.5-10.0)
[2022-10-14 13:25] LABS: Alanine Aminotransferase 27 U/L (6-50); Albumin Level 3.9 g/dL (3.5-5.1); Alkaline Phosphatase 63 U/L (38-126); Anion Gap 5 mmol/L (8-16); Aspartate Amino Transferase 32 U/L (17-59); Bilirubin,Total 0.7 mg/dL (0.2-1.3); Blood Urea Nitrogen 25 mg/dL (9-20); Carbon Dioxide 34 mmol/L (22-30); Chloride 97 mmol/L (98-107); Estimated CRCL calculation 20 ml/min; Estimated Glomerular Filt Rate 17; Glucose 101 mg/dL (65-110); Lipase 57 U/L (23-300); Potassium 4.1 mmol/L (3.4-5.0); Sodium 136 mmol/L (137-145)
== END 2022-10-14 15:30 | disposition home or self-care (01) ==
PROVIDERS: Emergency Provider Emergency Medicine; PCP Internal Medicine
DX: R11.10 Vomiting, unspecified (principal); E11.22 Type 2 diabetes mellitus with diabetic chronic kidney disease; I13.2 Hypertensive heart and chronic kidney disease with heart failure and with stage 5 chronic kidney disease, or end stage renal disease; N18.5 Chronic kidney disease, stage 5; I50.30 Unspecified diastolic (congestive) heart failure; E11.21 Type 2 diabetes mellitus with diabetic nephropathy; E78.5 Hyperlipidemia, unspecified; J44.9 Chronic obstructive pulmonary disease, unspecified; I25.5 Ischemic cardiomyopathy; D64.9 Anemia, unspecified; N40.0 Benign prostatic hyperplasia without lower urinary tract symptoms; Z99.2 Dependence on renal dialysis; Z95.5 Presence of coronary angioplasty implant and graft; R94.31 Abnormal electrocardiogram [ECG] [EKG]; Z79.85 Long-term (current) use of injectable non-insulin antidiabetic drugs; Z79.4 Long term (current) use of insulin
CPT/HCPCS: 36415; 74176; 80053; 83690; 85025; 87040; 93005; 96374; 99284; J2405

== ENCOUNTER 2022-10-29 12:38 | Outpatient (CLI) | payer MEDICARE, SELFPAY ==
[2022-10-29 12:30] VITALS: PULSE 91; O2SAT 94
[2022-10-29 12:45] VITALS: PULSE 92; O2SAT 85
[2022-10-29 12:50] VITALS: PULSE 94; O2SAT 92
[2022-10-29 13:00] VITALS: PULSE 94; O2SAT 95
--- NOTE | 2022-10-29 13:12 | HOMEO2EVAL ---
Evaluation was performed at [facility] Home Oxygen Evaluation RC: Home Oxygen (O2) Evaluation Start: 10/29/22 13:08 Freq: Status: Active Protocol: RPE Activity Type Activity Date Activity User E-sign Co-sign Detail Recorded Client Recorded Date Recorded By Document 10/29/22 12:30 PK RT_012 10/29/22 13:12 PK Document 10/29/22 12:45 PK [email or web address] 10/29/22 13:12 PK Document 10/29/22 12:50 [facility] [id number] 10/29/22 13:12 [facility] Document 10/29/22 13:00 [facility] [email or web address] 10/29/22 13:12 [facility] 10/29/22 10/29/22 10/29/22 12:30 12:45 12:50 Home O2 Evaluation [Oxygen] -Test Phase Resting Exercise Exercise -Oxygen Delivery Room Air Room Air -Oxygen Flow Rate (L/min) 1 [Pulse Oximetry] -Pulse Oximetry (90-100 %) 94 85 L 92 [Pulse Rate] -Pulse Rate (60-100 beats/min) 91 92 94 [Evaluation] -Activity Tolerance Good [Comments] -Home Oxygen Evaluation Comments [Charges] -Treatment Charges O2 Evaluation - Outpatient 10/29/22 13:00 Home O2 Evaluation [Oxygen] -Test Phase Resting -Oxygen Delivery Room Air -Oxygen Flow Rate (L/min) [Pulse Oximetry] -Pulse Oximetry (90-100 %) 95 [Pulse Rate] -Pulse Rate (60-100 beats/min) 94 [Evaluation] -Activity Tolerance [Comments] -Home Oxygen Evaluation Comments PATIENT NEEDS 1LPM WITH ACTIVITY AND ROOM AIR AT REST. [Charges] -Treatment Charges
== END 2022-10-29 12:39 | disposition home or self-care (01) ==
PROVIDERS: PCP Internal Medicine; Visit Provider Nurse Practitioner
DX: J44.9 Chronic obstructive pulmonary disease, unspecified (principal)
CPT/HCPCS: 94618

== ENCOUNTER 2022-12-13 12:12 | Emergency (ER) | payer MEDICARE, SELFPAY ==
--- NOTE | ~2022-12-13 | XR_ITS ---
EXAMINATION: XR foot RT min 3V DATE: 12/13/2022 14:52 INDICATION: Painful wound at the site of a right second toe amputation from one month prior. TECHNIQUE: Dorsoplantar, two oblique and lateral views of the right foot were obtained. COMPARISON: 11/17/2022 FINDINGS: Interval amputation of the right second toe at the level of the metatarsophalangeal joint. Bone align ment is otherwise normal. No fracture. No evident osteolysis to suggest osteomyelitis. Polyarticular osteoarthritis, moderate at the first tarsal metatarsal joint and mild at majority the remaining join ts in the right foot. Extensive vascular calcifications throughout the visualized right lower leg, fo ot and ankle. No evident soft tissue gas. IMPRESSION: 1. Expected appearance post right second toe amputation. No findings to suggest osteomyelitis or othe r acute osseous abnormality. Reviewed, dictated and finalized at location A. IMPRESSION: 1. Expected appearance post right second toe amputation. No findings to suggest osteomyelitis or other acute osseous abnormality.
[2022-12-13 12:27] VITALS: BP 97/49; PULSE 98; RESP 16; TEMP 36.2; O2SAT 96
[2022-12-13 15:02] LABS: Basophils Percent Auto 0.4 % (0.2-1.2); Eosinophils Absolute Auto 0.2 K/mm3 (0-0.3); Eosinophils Percent Auto 2.6 % (0-4.4); Hematocrit 34.2 % (42.0-52.0); Hemoglobin 11.1 g/dL (14.0-18.0); Immature Granulocyte Absolute 0.04 K/mm3 (0.00-0.031); Immature Granulocyte Percent A 0.6 % (0-0.5); Lymphocytes Absolute Auto 1.88 K/mm3 (0.9-3.2); Lymphocytes Percent Auto 26.7 % (18.3-44.2); Mean Corpuscular HGB Conc 32.5 g/dl (32-36); Mean Corpuscular Hemoglobin 33.9 pg (26-34); Mean Corpuscular Volume 104.6 fl (80-100); Monocytes Absolute Auto 1.1 K/mm3 (0.1-0.6); Monocytes Percent Auto 15.4 % (2.6-8.5); Neutrophils Absolute Auto 3.8 K/mm3 (1.3-6.7); Neutrophils Percent Auto 54.3 % (45.5-73.1); Platelet Count Result 156 k/mm3 (150-375); Red Blood Count 3.27 M/mm3 (4.6-6.20); Red Cell Distribution Width 14.8 % (11.5-14.5)
[2022-12-13 15:04] VITALS: BP 155/71; PULSE 62; RESP 16; O2SAT 97
[2022-12-13 15:13] LABS: Prothrombin Time 13.5 Seconds (11.1-14.7)
[2022-12-13 15:15] LABS: Alanine Aminotransferase 36 U/L (6-50); Alkaline Phosphatase 126 U/L (38-126); Anion Gap 5 mmol/L (8-16); Aspartate Amino Transferase 36 U/L (17-59); Bilirubin,Total 0.6 mg/dL (0.2-1.3); Blood Urea Nitrogen 20 mg/dL (9-20); CRP 0.6 mg/dL (<1.0); Calcium 8.5 mg/dL (8.4-10.2); Carbon Dioxide 37 mmol/L (22-30); Chloride 96 mmol/L (98-107); Estimated CRCL calculation 20 ml/min; Estimated Glomerular Filt Rate 18; Glucose 158 mg/dL (65-110); Potassium 4.3 mmol/L (3.4-5.0); Sodium 138 mmol/L (137-145)
--- NOTE | 2022-12-13 16:18 | ED.WOUNDLAC ---
HPI - Wound/Laceration General Chief Complaint: Wound/Laceration Stated Complaint: possible wound infection Time Seen by Provider: 12/13/22 14:26 Source: patient, RN notes reviewed and old records reviewed Mode of arrival: ambulatory Limitations: no limitations History of Present Illness HPI narrative: This is a 67 year old male with history of ESRD on dialysis, DM who presents for right foot wound evaluation s/p toe amputation. PAtient had 2nd toe amputation by Dr. Reilly 11/18/22 for treatment of wet gangrene. He states he has been doing well and he is seeing wound care. He states a wound care nurse that that his wound looked infected yesterday so they called wound care center. He was called today at noon and he was told to come to ER for evaluation. He states the nurse noticed some green discharge so she was concerned. He denies fever, chills, nausea, vomiting. He has pain at site of his amputation may be slightly worse because he is walking more. He states he feels fine Related Data Home Medications Medication Instructions Recorded Confirmed calcium acetate(phosphat bind) 667 667 mg PO TIDWM 08/15/21 12/01/22 mg capsule omega-3 fatty acids-vitamin E 1,000 cap PO BID 08/29/21 12/01/22 1,000 mg capsule cholecalciferol (vitamin D3) 250 5,000 unit PO BID 12/05/21 12/01/22 mcg (10,000 unit) capsule nitroglycerin 0.4 mg sublingual 0.4 mg sublingual Q5M PRN Chest 12/05/21 12/01/22 tablet Pain albuterol sulfate 2.5 mg/3 mL 1.25 mg inhalation Q6H PRN 01/02/22 12/01/22 (0.083 %) solution for nebulization shortness of breath or wheezing ezetimibe 10 mg tablet 10 mg PO DAILY 01/02/22 12/01/22 allopurinol 100 mg tablet 100 mg PO DAILY 06/17/22 12/01/22 furosemide 80 mg tablet 80 mg PO DAILY 09/08/22 12/01/22 carvedilol 12.5 mg tablet 25 mg PO BID 11/17/22 12/01/22 insulin aspart U-100 100 unit/mL 10 unit subcut TIDWMEAL blood sugar 11/17/22 12/01/22 (3 mL) subcutaneous pen (Novolog FlexPen U-100 Insulin aspart) Allergies Allergy/AdvReac Type Severity Reaction Status Date / Time Iodinated Contrast Media Allergy Unknown Hives Verified 12/01/22 14:49 lisinopril AdvReac Cough Verified 12/01/22 14:49 [facility] Past Medical History Medical History (Updated 12/13/22 @ 17:16 by Amber Turner MD) Benign prostatic hyperplasia Body mass index (BMI) greater than 30 (01/18/19) Cataracts, bilateral Chronic anemia Chronic diastolic congestive heart failure Chronic obstructive pulmonary disease Coronary artery disease Catheterization and 2005 showed a chronically occluded RCA. In 2016 he had a drug-eluting stent to the proximal left anterior descending. Dialysis patient Diastolic congestive heart failure Echocardiogram on 01/31/2021 showed normal LV systolic function with moderately increased LV wall thickness and grade 1 diastolic dysfunction with an EF estimated 55%. DM renal manif type II, uncontrolled Duodenal ulcer (11/2021) Essential hypertension Hemoptysis History of colon polyps Hyperlipidemia, unspecified Hypertension Insulin dependent type 2 diabetes mellitus Ischemic cardiomyopathy Laryngospasms Melanemia Onychomycosis Orthostasis Related to autonomic dysfunction from his diabetes. Pacemaker Peripheral neuropathy Stage 5 chronic kidney disease Type 2 diabetes mellitus with diabetic nephropathy Surgical History Surgical History (Updated 11/17/22 @ 23:27 by Hollie Estevez NP) H/O colonoscopy with polypectomy History of ankle surgery Left ORIF History of esophagogastroduodenoscopy History of eye surgery Laser eye surgery. Status post cardiac pacemaker procedure His 1st pacemaker was placed in his 30s for sinus pause, syncope and bradycardia and he had generator changes in 2002, 2006, and 2011. His RV lead has high thresholds and he was not pacing in also it was turned off. Status post creation of arteriovenous fistula Status post insertion of drug-eluting stent into left anterior descending (LAD) artery
[2022-12-13 16:53] VITALS: BP 163/75; PULSE 89; RESP 18; O2SAT 98
[2022-12-13] MEDS: DOXYCYCLINE HYCLATE 100 MG TABLET PO (17:08)
[2022-12-13] MEDS: CLINDAMYCIN PHOS 1% 30 GM GEL 1 APPLIC TOPICAL (17:21)
== END 2022-12-13 17:43 | disposition home or self-care (01) ==
PROVIDERS: Emergency Provider General Practice; PCP Internal Medicine
DX: T81.41XA Infection following a procedure, superficial incisional surgical site, initial encounter (principal); Z89.421 Acquired absence of other right toe(s); I50.32 Chronic diastolic (congestive) heart failure; I25.10 Atherosclerotic heart disease of native coronary artery without angina pectoris; E11.22 Type 2 diabetes mellitus with diabetic chronic kidney disease; N18.6 End stage renal disease; I13.2 Hypertensive heart and chronic kidney disease with heart failure and with stage 5 chronic kidney disease, or end stage renal disease; E11.42 Type 2 diabetes mellitus with diabetic polyneuropathy; D64.9 Anemia, unspecified; I25.5 Ischemic cardiomyopathy; J44.9 Chronic obstructive pulmonary disease, unspecified; E78.5 Hyperlipidemia, unspecified; N40.0 Benign prostatic hyperplasia without lower urinary tract symptoms; Z99.2 Dependence on renal dialysis; Z95.0 Presence of cardiac pacemaker; Z95.5 Presence of coronary angioplasty implant and graft; Z86.010 Personal history of colon polyps; Z87.891 Personal history of nicotine dependence; Z79.4 Long term (current) use of insulin
CPT/HCPCS: 36415; 73630; 80053; 85025; 85610; 86140; 87070; 87077; 87186; 87205; 96365; 99284; A9270; J0696

== ENCOUNTER 2022-12-17 07:15 | Outpatient (RCR) | payer MEDICARE, SELFPAY ==
--- NOTE | 2022-12-01 09:53 | WPDWOUNDNOTE ---
Wound Care Note Date/Time: 12/01/22 09:53 History: 67 y/o M c multiple med issues including DM, peripheral neuropathy presenting c gangrene of R second toe. Pt had amputation of R second toe on 11/18/22, please see op report for details. Pt reports no issues since dc and has home health doing dressing changes at home. Wound history: see above, s/p R second toe amputation, sutures removed today and some noted superficial dehiscence in mid portion of wound Wound width: 2 mm Wound length: 4 cm Wound depth: 1 cm Drainage: Serosanguineous Surrounding tissue appearance: healthy, granulation Tunneling: none Percentage granulation tissue: 100 Treatment/Procedures: continue local wound care, packing with iodoform dressing Assessment and Plan Assessment and plan (1) Gangrene of right foot: Code(s): I96 - Gangrene, not elsewhere classified Status: Acute Assessment and Plan: continue local wound care, pathology reviewed, follow-up 2 weeks Review of Systems Review of Systems: All systems reviewed & are unremarkable except as noted in HPI and below Exam Const: General: cooperative, comfortable and no acute distress Resp: Auscultation: clear to auscultation bilaterally Cardio: Rate: regular rate Rhythm: regular rhythm GI: Inspection: normal to inspection
[2022-12-01 14:39] VITALS: BMI 31.3
--- NOTE | 2022-12-17 12:20 | WPDWOUNDNOTE ---
Wound Care Note Date/Time: 12/17/22 12:20 History: s/p R 2nd toe amputation on 11/18, wound dehiscence Wound history: see above, wound dehiscence with some exposure of metatarsal head Wound width: 5.3 Wound length: 1.8 Wound depth: 2.5 Drainage: serous Surrounding tissue appearance: some skin necrosis (dry) 1st toe and 3rd toe, no s/s active infection Tunneling: no Percentage granulation tissue: 90 Treatment/Procedures: silver rope Dressings: silver rope, guaze Assessment and Plan Assessment and plan (1) Gangrene of right foot: Code(s): I96 - Gangrene, not elsewhere classified Status: Acute Assessment and Plan: cont local wound care, finish abx as prescribed, will refer to vascular, f/u 2 wks Review of Systems Review of Systems: All systems reviewed & are unremarkable except as noted in HPI and below Exam Const: General: cooperative, comfortable, no acute distress and ill appearing Resp: Auscultation: clear to auscultation bilaterally Cardio: Rate: regular rate Rhythm: regular rhythm GI: Inspection: normal to inspection
--- NOTE | 2023-01-01 10:26 | PCWOUND ---
Patient did not show up for his scheduled appointment on 12/31/[address] Reilly. Spoke with ARNOLD Contreras for the surgical office. States there is an ER noted from [facility] in [facility] on 12/24/22. Per note, patient was admitted for osteomyelitis with possible debridment and further amputation under Dr. Klein vascular surgeon care. Diane states they will reach out to Dr. Klein's office to see if they have an updated note since 12/24/22.
== END 2023-01-22 13:04 | disposition home or self-care (01) ==
LOC: ANHWOC 07:15
PROVIDERS: PCP Internal Medicine; Visit Provider Surgery
DX: Z47.81 Encounter for orthopedic aftercare following surgical amputation (principal); Z89.421 Acquired absence of other right toe(s); I96 Gangrene, not elsewhere classified
CPT/HCPCS: 99213; G0463

== ENCOUNTER 2023-05-20 10:13 | Outpatient (RCR) | payer MEDICARE, SELFPAY ==
--- NOTE | 2023-05-20 12:00 | PTOPEVAL1 ---
Assessment and note entered by Ky Roy Evaluation Information Assessment Status Evaluation Diagnosis right AKA Onset 12/13/22 Subjective Information Pt. reports that he underwent right l.e. amputation above the knee in December. He was participating in therapy for the past several months. He reports that he received his right l.e . prothesis 2-3 weeks ago. He has been attempting weight shifting at home with the prothesis. He states that prior to his amputation he did not use an assistive device, but had poor balance. 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 He no longer drives, but would like to return to driving. Pt. reports that his goal is to be able to return to walking. Reported Pain Level Pain Score 4: Self Report Assessment PT Clinical Summary Pt. enters the clinic for training regarding right l.e. prothesis for above knee amputation. He presents with impaired right hip mobility, impaired right hip strength, impaired gait and functional decline. Pt. does not have much home support as his caregiver is only available for short durations throughout the day. He does not demonstrate proper safety to attempt ambulation without assistance. Contacted the doctor regarding recieving an order to have the pt. placed in an aggressive IP setting for further prosthetic training before he transitions to OP. Due to uncertainty with insurance we will schedule OP care and establish a POC to continue to improve deficits. Pt. is told to contact the clinic if he is able to transition to IP care. Plan of Care Interventions Gait Training,Manual Therapy,Neuro Re-education, Patient/Caregiver Educati,Prosthetic Training, Therapeutic Activities,Therapeutic Exercise PT Services Indicated Yes Treatment Frequency and 2x/week x 10 visits Duration These treatments will address the objective and functional deficits as defined above. The patient will be advanced safely and appropriately in order for the patient to progress towards his/her prior level of function. Additional exercises will be introduced and as well as a comprehensive home exercise program upon discharge, if needed, ?to ensure carryover of functional gains achieved in the clinic. This treatment plan has been reviewed and agreement upon by the patient.
--- NOTE | 2023-05-20 12:34 | PTOPEVAL1 ---
Assessment and note entered by Ky Roy Evaluation Information Assessment Status Evaluation Diagnosis right AKA Onset 12/13/22 Subjective Information Pt. reports that he underwent right l.e. amputation above the knee in December. He was participating in therapy for the past several months. He reports that he received his right l.e . prothesis 2-3 weeks ago. He has been attempting weight shifting at home with the prothesis. He states that prior to his amputation he did not use an assistive device, but had poor balance. 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 He no longer drives, but would like to return to driving. Pt. reports that his goal is to be able to return to walking. Reported Pain Level Pain Score 4: Self Report Assessment PT Clinical Summary Pt. enters the clinic for training regarding right l.e. prothesis for above knee amputation. He presents with impaired right hip mobility, impaired right hip strength, impaired gait and functional decline. Pt. does not have much home support as his caregiver is only available for short durations throughout the day. He does not demonstrate proper safety to attempt ambulation without assistance. Contacted the doctor regarding recieving an order to have the pt. placed in an aggressive IP setting for further prosthetic training before he transitions to OP. Due to uncertainty with insurance we will schedule OP care and establish a POC to continue to improve deficits. Pt. is told to contact the clinic if he is able to transition to IP care. Plan of Care Interventions Gait Training,Manual Therapy,Neuro Re-education, Patient/Caregiver Educati,Prosthetic Training, Therapeutic Activities,Therapeutic Exercise PT Services Indicated Yes Treatment Frequency and 2x/week x 10 visits Duration These treatments will address the objective and functional deficits as defined above. The patient will be advanced safely and appropriately in order for the patient to progress towards his/her prior level of function. Additional exercises will be introduced and as well as a comprehensive home exercise program upon discharge, if needed, ?to ensure carryover of functional gains achieved in the clinic. This treatment plan has been reviewed and agreement upon by the patient.
--- NOTE | 2024-01-07 15:40 | PCPTNOTE ---
Mr. Valero attended his initial evaluation on 05/20/23. He failed to return to the clinic following initial evaluation and will be discharged from our care. Refer to the initial evaluation for discharge status. Thank you for the referral of this patient. Ky Roy, MPT
== END 2023-08-07 08:36 | disposition home or self-care (01) ==
LOC: ANHPT 10:13
PROVIDERS: PCP Internal Medicine; Visit Provider Nurse Practitioner
DX: Z47.81 Encounter for orthopedic aftercare following surgical amputation (principal); Z89.611 Acquired absence of right leg above knee
CPT/HCPCS: 97110; 97116; 97162

== ENCOUNTER 2023-05-23 12:14 | Outpatient (CLI) | payer MEDICARE, SELFPAY ==
--- NOTE | ~2023-05-23 | CT_ITS ---
CT Scan of the Chest without Contrast: Clinical Indication: Hypoxia Technique: Contiguous sections were acquired throughout the chest without intravenous contrast. Dose reduction technique was used on this scan by utilizing automated exposure control and iterative recon struction technique. The dose-length product (DLP) was 243.87 mGy-cm. COMPARISON: 01/30/2021 Findings: There is no evidence of any significant mediastinal, hilar or axillary lymphadenopathy. There are ext ensive coronary desiccation, with pacemaker device. There is no evidence of pleural or pericardial effusion. The lungs are clear, aside from minimal dependent atelectatic changes. Images through the upper abdomen reveal calcified splenic granulomas. Impression: No significant pulmonary abnormalities seen. Pacemaker device. Reviewed, dictated and finalized at location . 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 Pacemaker device.
== END 2023-05-23 12:15 | disposition home or self-care (01) ==
PROVIDERS: PCP Internal Medicine; Visit Provider Internal Medicine
DX: R09.02 Hypoxemia (principal); R06.89 Other abnormalities of breathing; R93.89 Abnormal findings on diagnostic imaging of other specified body structures; Z95.0 Presence of cardiac pacemaker
CPT/HCPCS: 71250

== ENCOUNTER 2024-01-05 12:21 | Outpatient (RCR) | payer MEDICARE, SELFPAY | END 2024-02-17 15:09 | disposition home or self-care (01) | LOC: ANHWOC 12:21 | PROVIDERS: PCP Internal Medicine; Visit Provider Nurse Practitioner | DX: L89.319 Pressure ulcer of right buttock, unspecified stage (principal) | CPT/HCPCS: 99213; G0463 ==

== ENCOUNTER 2024-01-19 14:27 | Outpatient (CLI) | payer MEDICARE, SELFPAY ==
--- NOTE | ~2024-01-19 | XR_ITS ---
EXAMINATION: XR chest 2V Exam Date/Time: 01/19/2024 14:35 CDT HISTORY: INCREASING sob Comparison: 01/07/2022. RESULT: Lines, tubes, and devices: Left chest pacer with intact leads. Right axillary vascular stent. Lungs and pleura: Low volumes with crowding. Streaky bibasilar atelectasis/scar. Minimal left costop hrenic angle blunting. Cardiomediastinal silhouette: Stable. Other: No acute osseous or upper abdominal finding. IMPRESSION: Trace left pleural effusion versus chronic pleural scarring. Reviewed, dictated and finalized at location K.
== END 2024-01-19 14:28 | disposition home or self-care (01) ==
PROVIDERS: PCP Internal Medicine; Visit Provider Internal Medicine Nephrology
DX: R06.02 Shortness of breath (principal)
CPT/HCPCS: 71046

== ENCOUNTER → 2024-04-11 11:26 | Outpatient (REF) | payer MEDICARE, SELFPAY | LOC: ANHLAB 11:26 | PROVIDERS: PCP Internal Medicine; Visit Provider Plastic Surgery | DX: L72.3 Sebaceous cyst (principal) | CPT/HCPCS: 88305 ==

== ENCOUNTER 2025-01-12 10:03 | Inpatient (IN) | payer MEDICARE, SELFPAY ==
[2025-01-12] VITALS (14 sets, daily range): BP systolic 135–175; BP diastolic 53–79; PULSE 84–94; RESP 14–25; TEMP 36.7; O2SAT 93–100; BMI 27.4
--- NOTE | ~2025-01-12 | XR_ITS ---
XR chest 2V 01/12/2025 10:48 Indication: Shortness of breath Procedure: 2 view chest Comparison: Comparison to multiple prior studies sequentially, with oldest reviewed study dated 12/05. Findings: Bibasilar airspace disease, left greater than right. No pleural effusion or pneumothorax. S hallow inspiration. No pneumothorax. Pacemaker leads are stable. Impression: 1: Bibasilar airspace disease with crowding of the pulmonary vessels due to low lung lines. Considera tions include edema, atelectasis and/or pneumonia. Reviewed, dictated and finalized at location B. Impression: 1: Bibasilar airspace disease with crowding of the pulmonary vessels due to low lung lines. Considerations include edema, atelectasis and/or pneumonia.
--- NOTE | ~2025-01-12 | XR_ITS ---
EXAMINATION: XR chest 1V portable DATE: 01/20/2025 14:02 INDICATION: Follow-up prior abnormal chest radiograph. TECHNIQUE: frontal view of the chest was obtained. COMPARISON: Chest radiograph dated 01/12/2025 FINDINGS: 1 ectatic decreased bilateral lung volumes. Persistent bibasilar opacities, left greater than right. No pulmonary edema, pleural effusion or pneumothorax. Mild cardiomegaly with prominent left paracardi al fat pad. Dual lead pacemaker seen with leads projecting over the expected locations of the right atrium and right ventricle. . IMPRESSION: 1. Stable appearance of small lung volumes and bibasilar opacities, left greater than right which cou ld represent atelectasis or pneumonia. Reviewed, dictated and finalized at location A. IMPRESSION: 1. Stable appearance of small lung volumes and bibasilar opacities, left greate r than right which could represent atelectasis or pneumonia.
--- NOTE | 2025-01-12 10:16 | ECG_ITS ---
Test Date: 2025-01-12 10:22:03 Measurements Intervals Sherman Rate: 90 P: 33 HI: 160 QRS: -28 QRSD: 98 T: 32 QT: 349 QTc: 428 Interpretive Statements SINUS RHYTHM PACEMAKER SPIKES- ARTIFACT OR ATRIAL AND VENTRICULAR LEAD MALFUNCTION INFERIOR INFARCT, AGE INDETERMINATE ANTEROSEPTAL INFARCT, AGE INDETERMINATE BORDERLINE ST-T WAVE ABNORMALITY- HIGH LATERAL LEADS BASELINE ARTIFACT- I, II, III, AVR, AVL, AVF, V1-V6 ABNORMAL ECG No previous ECG available for comparison Electronically Signed On 01-13-2025 06:13:47 CDT by William Mayfield D.O.
[2025-01-12] MEDS: IPRATROPIUM 0.5 MG/ALBUTEROL SULFATE 2.5 MG AMPUL.NEB 3 ML INHALATION ×2 (10:31→20:18)
--- OUTSIDE RECORDS SUMMARY | 2025-01-12 10:53 | XMS_ITS | Clinical Summary ---
Author Organization [facility] Address [address] [place] [address] Phone Care Team Providers Care Cigar Bander Hand Name Role Phone ElizabethKishore gonzalez Primary Care Provider [phone] Allergies Active Allergy Reactions Criticality Noted Date Comments Iodinated Contrast Media Hives Medium 12/30/2019 Ioversol 01/19/2019 Lisinopril 04/15/2021 Other reaction(s): Other (See Comments) cough Medications aspirin 81 MG chewable tablet 1 daily 0 8 Active Multiple Vitamin (MULTIVITAMIN) capsule 1 daily 0 8 Active nitroglycerin (NITROSTAT) 0.4 MG SL tablet 1 tablet (0.4 mg) sublingually one time as needed for angina pectoris 0 7 Active ezetimibe (ZETIA) 10 MG tablet 1 daily 0 8 Active albuterol HFA (PROAIR HFA) 108 (90 Base) MCG/ACT inhaler 1 as needed 0 8 Active insulin degludec (TRESIBA FLEXTOUCH) 200 UNIT/ML injection 80 units daily 0 7 Active atorvastatin (LIPITOR) 80 MG tablet TAKE 1 TABLET BY MOUTH DAILY 90 tablet 9 Active NOVOLOG FLEXPEN 100 UNIT/ML injection 9 Active Cholecalciferol (VITAMIN D3) 125 MCG (5000 UT) capsule Take 10,000 Units by mouth Active Dulaglutide 1.5 MG/0.5ML solution pen-injector Inject under the skin Active clopidogrel (PLAVIX) 75 MG tablet 1 Active Depue-3 Fatty Acids (RA Fish Oil) 1000 MG capsule Take 1 capsule by mouth 2 times daily Active Budeson-Glycopy rrol-Formoterol 160-9-4.8 MCG/ACT aerosol Inhale Acti ve calcium acetate (PhosLo) 667 MG capsule Take 1 capsule (667 mg total) by mouth 3 (three) times a day with meals 180 capsule 11 1 Active furosemide (LASIX) 40 MG tablet 1 tablet (40 mg total) 2 (two) times a day 180 tablet 3 2 Active prednisoLONE acetate (PRED FORTE) 1 % ophthalmic suspension SHAKE LIQUID AND INSTILL 1 DROP IN BOTH EYES TWICE DAILY DIRECTED 2 Active metOLazone (ZAROXOLYN) 2.5 MG tablet Take 2.5 mg by mouth every other day Active ferrous sulfate 325 (65 Fe) MG tablet Take 325 mg by mouth 2 times daily 2 Active pantoprazole (PROTONIX) 40 MG EC tablet Take 40 mg by mouth daily 2 Active carvedilol (COREG) 12.5 MG tablet Take 12.5 mg by mouth 2 (two) times a day with meals Active Active Problems Problem Noted Date Diagnosed Date Iron deficiency anemia 12/13/2021 Stable angina 10/16/2017 Gout 07/22/2017 Hyperlipidemia 07/22/2017 History of cerebrovascular accident 07/14/2017 Other emphysema 04/14/2017 Anxiety 04/14/2017 Cardiac pacemaker in situ 12/08/2016 Overview (01/19/2019): Medtronic Dual Pacemaker, multiple generator changes the most recent being in 06/20/2011, chronic leads 1988. Vent lead is off-Bill Single Pm. Carelink remote home monitor Q3 mo, office pacer checks Q1 yr. Last Assessment & Plan: Pacemaker checked in October, normal function, and had a remote check in January 2017. Longevity 8 years. 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 Followed by Dr. Paiz. Type 2 diabetes mellitus wit h other diabetic kidney complication 06/12/2014 Essential (primary) hypertension 06/12/2014 Coronary occlusion 10/29/2013 Overview (01/19/2019): CHR TOT OCCLUS COR ARTRY Resolved Problems Problem Noted Date Diagnosed Date Resolved Date Type 2 diabetes mellitus without complication 07/22/19 18 12/12/2020 Immunizations Immunization Administration Dates Next Due Fluzone High-Dose 05/02/2020 Influenza TIV (IM) 03/29/2021,05/24/2019 Pneumococcal Conjugate 08/09/2016 Family History Medical History Relation Comments Cerebrovascular accident Father Diabetes mellitus Father Kidney disease Father Coronary arteriosclerosis Mother Relation Status Comments Father Mother Social History Tobacco Use Types Packs/Day Years Used Date Smoking Tobacco: Never Smokeless Tobacco: Never Alcohol Use Standard Drinks/Week Comments No 0 (1 standard drink = 0.6 oz pur e alcohol) AUDIT-C Answer Date Recorded Frequency of Alcohol Consumption Never 11/27/2018 Average Number of Drinks Not on file 019 Frequency of Binge Drinking Not on file 11/13 Sex and Gender Information Value Date Recorded Sex Assigned at Not on file Legal Sex Male 8:44 AM [facility] Gender Identity Not on file Sexual Orientation Not on file Last Filed Vital Signs Vital Sign Reading Time Taken Comments Blood Pressure 124/72 01/02/2022 9:43 AM CDT Pulse 72 01/02/2022 9:43 AM CDT Temperature 35.7 C (96.3 F) 01/02/2022 9:43 AM CDT Respiratory Rate - - Oxygen Saturation - - Inhaled Oxygen Concentration - - Weight 107 kg (235 lb) 01/02/2022 9:43 AM CDT Height 180.3 cm (5' 11) 01/02/2022 9:43 AM CDT Body Mass Index 32.78 01/02/2022 9:43 AM CDT Plan of Treatment Health Maintenance Due Date Last Done Comments Pneumococcal PPSV23/PCV13 65 + Years / Low and Medium Risk (1 of 2 - PCV) 09/20/2003 Influenza Vaccine (#1) 2025 03/29/2021, 2018 Insurance [employer] PM INTER[employer]ACED INSURANCE Care Teams Cigar Bander Hand Relationship Specialty Start Date End Date Kishore Rosario DO [address] [place] [address] PCP - General Internal Medicine 01/19/19
--- OUTSIDE RECORDS SUMMARY | 2025-01-12 10:53 | XMS_ITS | Encounter Summary ---
Author Organization [facility] Address [address] [address] Care Team Providers Care Dramatic Agent Name Role Phone Deedee Jarrett MD Primary Care Provider Deedee Jarrett MD Primary Care Provider Kishore Rosario DO Primary Care Provider [phone] Shahzad Paiz MD Unavailable [phone] Marlen Higgins MD Unavailable [phone] Demetrio Klein MD Unavailable [phone] Encounter Details Date Type Department Care Team (Late st Contact Info) Description 07/28/2016 Orders Only [facility] ProviderDaniel MD [address] [place] [address] Social History Tobacco Use Types Packs/Day Years Used Date Smoking Tobacco: Never Alcohol Use Standard Drinks/Week Comments Yes 0 (1 standard drink = 0.6 oz pur e alcohol) Sex and Gender Information Value Date Recorded Sex Assigned at Not on file Legal Sex Male 2:10 AM [employer] Gender Identity Not on file Sexual Orientation Not on file documented as of this encounter Plan of Treatment Not on file documented as of this encounter Procedures Procedure Name Priority Date/Time Associated Diagnosis Comments CARDIOLOGY REPORT 07/28/2016 documented in this encounter Results * CARDIOLOGY REPORT (07/28/2016) Anatomical Region Laterality Modality Other Narrative 07/28/2016 Ordered by an unspecified provider. us Historical Provider [facility] KAREL WINN Final Result documented in this encounter Visit Diagnoses Not on filedocumented in this encounter Care Teams Dramatic Agent Relationship Specialty Start Date End Date Deedee Jarrett MD [address] [place] [address] PCP - General 09/12/16 04/12/17 Deedee Jarrett MD [address] [place] [address] PCP - General 02/16/13 09/11/16 Kishore Rosario DO [address] [place] [id number] PCP - General Internal Medicine 04/13/17 Shahzad Paiz MD [address] [place] [address] Referring Physician Nephrology 01/31/22 Marlen Higgins MD [address] [place] [address] Consulting Physician Cardiology 01/31/22 Demetrio Klein MD [address] [facility] [address] [place] [address] [facility] [address] [place] [address] Surgeon Surgery 03/26/22 Dr Reba Diez [place], [place] Endocrinology 01/31/22 documented as of this encounter
--- OUTSIDE RECORDS SUMMARY | 2025-01-12 10:53 | XMS_ITS | Encounter Summary ---
Author Organization [facility] Address [address] [facility] [address] [place] [address] Care Team Providers Care Burn Out Tender Lace Name Role Phone Deedee Jarrett MD Primary Care Provider Kishore Rosario DO Primary Care Provider + [phone] Shahzad Paiz MD Unavailable [phone] Marlen Higgins MD Unavailable [phone] Demetrio Klein MD Unavailable [phone] Encounter Details Date Type Department Care Team (Late st Contact Info) Description 10/29/2016 Orders Only [facility] ProviderDaniel MD [place] [address] Social History Tobacco Use Types Packs/Day Years Used Date Smoking Tobacco: Never Alcohol Use Standard Drinks/Week Comments Yes 0 (1 standard drink = 0.6 oz pur e alcohol) Sex and Gender Information Value Date Recorded Sex Assigned at Not on file Legal Sex Male 2:10 AM HEAD [employer] Gender Identity Not on file Sexual Orientation Not on file documented as of this encounter Plan of Treatment Not on file documented as of this encounter Procedures Procedure Name Priority Date/Time Associated Diagnosis Comments CARDIOLOGY REPORT 10/29/2016 documented in this encounter Results * CARDIOLOGY REPORT (10/29/2016) Anatomical Region Laterality Modality Other Narrative 10/29/2016 Ordered by an unspecified provider. us Historical Provider [facility] KAREL WINN Final Result documented in this encounter Visit Diagnoses Not on filedocumented in this encounter Care Teams Burn Out Tender Lace Relationship Specialty Start Date End Date Deedee Jarrett MD [address] [address] PCP - General 09/12/16 04/12/17 Kishore Rosario DO [address] [address] PCP - General Internal Medicine 04/13/17 Shahzad Paiz MD [address] [address] Referring Physician Nephrology 01/31/22 Marlen Higgins MD [address] [address] Consulting Physician Cardiology 01/31/22 Demetrio Klein MD [address] [facility] [address] [place] [address] [facility] [address] [place] [address] Surgeon Surgery 03/26/22 Dr Reba Diez [place], [place] Endocrinology 01/31/22 documented as of this encounter
--- OUTSIDE RECORDS SUMMARY | 2025-01-12 10:53 | XMS_ITS | Encounter Summary ---
Author Organization [facility] Address [address] [address] Care Team Providers Care Pipe Fitter Maintenance Name Role Phone Deedee Jarrett MD Primary Care Provider Deedee Jarrett MD Primary Care Provider Kishore Rosario DO Primary Care Provider [phone] Shahzad Paiz MD Unavailable [phone] Marlen Higgins MD Unavailable [phone] Demetrio Klein MD Unavailable [phone] Encounter Details Date Type Department Care Team (Late st Contact Info) Description 08/13/2016 Orders Only [facility] ProviderDaniel MD [address] [place] [address] Social History Tobacco Use Types Packs/Day Years Used Date Smoking Tobacco: Never Alcohol Use Standard Drinks/Week Comments Yes 0 (1 standard drink = 0.6 oz pur e alcohol) Sex and Gender Information Value Date Recorded Sex Assigned at Not on file 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 us Historical Provider [facility] KAREL WINN Final Result documented in this encounter Visit Diagnoses Not on filedocumented in this encounter Care Teams Pipe Fitter Maintenance Relationship Specialty Start Date End Date Deedee Jarrett MD [address] [place] [address] PCP - General 09/12/16 04/12/17 Deedee Jarrett MD [address] [place] [address] PCP - General 02/16/13 09/11/16 Kishore Rosario DO [address] [place] [address] PCP - General Internal Medicine 04/13/17 Shahzad Paiz MD [address] [place] [address] Referring Physician Nephrology 01/31/22 Marlen Higgins MD [address] [place] [address] Consulting Physician Cardiology 01/31/22 Demetrio Klein MD [address] [facility] [address] [place] [address] [facility] [address] [place] [address] Surgeon Surgery 03/26/22 Dr Reba Diez [place], [place] Endocrinology 01/31/22 documented as of this encounter
--- OUTSIDE RECORDS SUMMARY | 2025-01-12 10:53 | XMS_ITS | Encounter Summary ---
Author Organization [facility] Address [address] [address] Care Team Providers Care Medical Data Analyst Name Role Phone Deedee Jarrett MD Primary Care Provider Deedee Jarrett MD Primary Care Provider Kishore Rosario DO Primary Care Provider [phone] Shahzad Paiz MD Unavailable [phone] Marlen Higgins MD Unavailable [phone] Demetrio Klein MD Unavailable [phone] Encounter Details Date Type Department Care Team (Late st Contact Info) Description 08/08/2016 Orders Only [facility] ProvideraDniel MD [address] [place] [address] Social History Tobacco Use Types Packs/Day Years Used Date Smoking Tobacco: Never Alcohol Use Standard Drinks/Week Comments Yes 0 (1 standard drink = 0.6 oz pur e alcohol) Sex and Gender Information Value Date Recorded Sex Assigned at Not on file Legal Sex Male 2:10 AM [employer] Gender Identity Not on file Sexual Orientation Not on file documented as of this encounter Plan of Treatment Not on file documented as of this encounter Procedures Procedure Name Priority Date/Time Associated Diagnosis Comments CARDIOLOGY REPORT 08/08/2016 CARDIOLOGY REPORT 08/08/2016 documented in this encounter Results * CARDIOLOGY REPORT (08/08/2016) Anatomical Region Laterality Modality Other Narrative 08/08/2016 Ordered by an unspecified provider. us Historical Provider [facility] PROCE DURES Final Result * CARDIOLOGY REPORT (08/08/2016) Anatomical Region Laterality Modality Other Narrative 08/08/2016 Ordered by an unspecified provider. us Historical Provider [facility] PROCE DURES Final Result documented in this encounter Visit Diagnoses Not on filedocumented in this encounter Care Teams Medical Data Analyst Relationship Specialty Start Date End Date Deedee Jarrett MD [facility] [address] [address] PCP - General 09/12/16 04/12/17 Deedee Jarrett MD [facility] [address] [address] PCP - General 02/16/13 09/11/16 Kishore Rosario DO [address] [address] PCP - General Internal Medicine 04/13/17 Shahzad Paiz MD [address] [address] Referring Physician Nephrology 01/31/22 Marlen Higgins MD [address] [address] Consulting Physician Cardiology 01/31/22 Demetrio Klein MD [address] [facility] [address] [place] [address] [place] [address] [place] [address] Surgeon Surgery 03/26/22 Dr Reba Diez [place], [place] Endocrinology 01/31/22 documented as of this encounter
--- OUTSIDE RECORDS SUMMARY | 2025-01-12 10:54 | XMS_ITS | Patient Health Record ---
Author Organization [facility] Address [address] [place], [place] [id number] Care Team Providers Care Back Tender Cloth Printing Name Role Phone JOHNNA LR Unavailable [phone] Kishore Rosario Unavailable Unavailable DANYELLE BOND Unavailable [phone] Allergies Allergen (clinical drug ingredient) Drug/Non Drug Allergy documented on EMR Reaction Allergy Type Onset Date Status Iodine Hives Drug Allergy 12/30/2019 Active lisinopril Lisinopril Cough Drug Allergy 04/14/2021 Acti ve Reason For Referral No Information Medications Medication SIG (Take, Route, Frequency, Duration) Notes Start Date End Date Status Atorvastatin Calcium 80 MG Oral; Duration: 90 Days Acti ve Gabapentin 100 MG Oral; Duration: 90 Days Active amLODIPine Besylate 5 MG Oral; Duration: 90 Days Active NovoLOG FlexPen 100 UNIT/ML INJECT 8 UNITS BEFORE MEALS ADD FOR HIGH SUGAR BEFORE MEALS 2 FOR 50 MORE THAN 150. MAXIMUM DAILY DOSE 50 Subcutaneous; Duration: 90 Days Active Ondansetron HCl 4 MG Oral; Duration: 30 Days Active Tresiba FlexTouch 100 UNIT/ML INJECT 25 UNITS SUBCUTANEOUSLY DAILY Subcutaneous; Duration: 90 Days Active Ozempic (1 MG/DOSE) 4 MG/3ML INJECT 1MG SUBCUTANEOUSLY WEEKLY (EVERY 7 DAYS) Subcutaneous; Duration: 84 Days Active Carvedilol 25 MG TAKE 1 TABLET EVERY 12 HOURS, MUST ADMINISTER WITHMEALS/FOOD Oral; Duration: 90 Days Active Allopurinol 100 MG TAKE 1 TABLET DAILY Oral; Duration: 90 Days Active Clopidogrel Bisulfate 75 MG Oral; Duration: 90 Days Acti ve prednisoLONE Acetate 1 % Ophthalmic; Dur ation: 25 Days Active Immunizations Vaccine Route Administration Date Status Comme nts Influenza (split), 3 yrs and above Unknown 04/01/2013 A dministered Influenza (split), 3 yrs and above Unknown 04/01/2013 A dministered Influenza (split), 3 yrs and above Unknown 04/01/2013 A dministered Influenza (split), 3 yrs and above Unknown 06/04/2015 A dministered Influenza (split), 3 yrs and above Unknown 06/04/2015 A dministered Influenza (split), 3 yrs and above Unknown 06/04/2015 A dministered Influenza (split), 3 yrs and above Unknown 05/24/2019 A dministered Influenza (split), 3 yrs and above Unknown 05/24/2019 A dministered Influenza (split), 3 yrs and above Unknown 05/24/2019 A dministered Influenza (split), 3 yrs and above Unknown 03/29/2021 A dministered Influenza (split), 3 yrs and above Unknown 03/29/2021 A dministered Influenza (split), 3 yrs and above Unknown 03/29/2021 A dministered Influenza, high dose seasonal Unknown 05/24/2019 Admini stered Influenza, high dose seasonal Unknown 05/24/2019 Admini stered Influenza, high dose seasonal Unknown 05/24/2019 Admini stered Influenza, high-dose seasona l, quadrivalent, preservative free >65 yrs Unknown 05/02/2020 Administered Influenza, high-dose seasona l, quadrivalent, preservative free >65 yrs Unknown 05/02/2020 Administered Influenza, high-dose seasona l, quadrivalent, preservative free >65 yrs Unknown 05/02/2020 Administered Influenza, quadrivalent, spl it, preservative free, 3 years or older Unknown 03/22/2021 Administered Influenza, quadrivalent, spl it, preservative free, 3 years or older Unknown 03/22/2021 Administered Influenza, quadrivalent, spl it, preservative free, 3 years or older Unknown 03/22/2021 Administered Influenza, seasonal, injecta ble, preservative free, 6-35 months Unknown 07/24/2017 Administered Influenza, seasonal, injecta ble, preservative free, 6-35 months Unknown 07/24/2017 Administered Influenza, seasonal, injecta ble, preservative free, 6-35 months Unknown 07/24/2017 Administered Pneumococcal conjugate PCV 7 Unknown 08/09/2016 Adminis tered Pneumococcal conjugate PCV 7 Unknown 08/09/2016 Adminis tered Pneumococcal conjugate PCV 7 Unknown 08/09/2016 Adminis tered Vital Signs Height-cm 182.88 cm 11/14/2024 Weight-kg 95.26 kg 11/14/2024 Height 72.00 in 11/14/2024 Weight 210 lbs 11/14/2024 BMI 28.48 kg/m2 11/14/2024 Procedures Procedure Date Ordered Date Performed Result Body Sit e PHYSICAL THERAPY 10/18/2024 N/A Encounters Encounter Location Date Provider Diagnosis [facility] [place] [address] [place] [address] [id number] 07/18/2024 JOHNNA SNOOK Pain in left toe(s) M79.675 ; Tinea unguium B35.1 ; Type 2 diabetes mellitus with other circulatory complications E11.59 ; Type 2 diabetes mellitus with other diabetic neurological complication E11.49 and Plantar fascial fibromatosis M72.2 [facility] [place] [address] [place] [address] [place] [address] [id number] 10/05/2024 DANYELLE BOND Achilles tendinitis, left leg M76.62 ; Plantar fascial fibromatosis M72.2 ; Type 2 diabetes mellitus with other circulatory complications E11.59 ; Atherosclerosis of [place] arteries of extremities with intermittent claudication, bilateral legs I70.213 ; Difficulty in walking R26.2 ; Edema of foot R60.0 and Left foot pain M79.672 [facility] [place] [address] [place] [address] [id number] 10/12/2024 DANYELLE BOND Type 2 diabetes mellitus with other circulatory complications E11.59 ; Plantar fascial fibromatosis M72.2 ; Localized edema R60.0 ; Achilles tendinitis, left leg M76.62 and Pain in left foot M79.672 [facility] [place] [address] [place] [address] [id number] 10/26/2024 DANYELLE BOND Plantar fascial fibromatosis M72.2 ; Achilles tendinitis, left leg M76.62 ; Localized edema R60.0 ; Type 2 diabetes mellitus with other circulatory complications E11.59 and Pain in left foot M79.672 [facility] [place] [address] [place] [address] [place] [address] [id number] 01/25/2024 JOHNNA SNOOK Pain in left toe(s) M79.675 ; Tinea unguium B35.1 ; Type 2 diabetes mellitus with other circulatory complications E11.59 and Type 2 diabetes mellitus with other diabetic neurological complication E11.49 [facility] [place] [address] [place] [address] [place] [address] [id number] 04/18/2024 JOHNNA SNOOK Pain in left toe(s) M79.675 ; Tinea unguium B35.1 ; Type 2 diabetes mellitus with other circulatory complications E11.59 and Type 2 diabetes mellitus with other diabetic neurological complication E11.49 [facility] [place] [address] [place] [address] [place] [address] [id number] 08/22/2024 JOHNNA SNOOK Type 2 diabetes mellitus with other circulatory complications E11.59 ; Plantar fascial fibromatosis M72.2 and Type 2 diabetes mellitus with other diabetic neurological complication E11.49 [facility] [place] [address] [place] [address] [place] [address] [id number] 11/14/2024 JOHNNA SNOOK Type 2 diabetes mellitus with other circulatory complications E11.59 ; Plantar fascial fibromatosis M72.2 ; Type 2 diabetes mellitus with other diabetic neurological complication E11.49 and Posterior tibial tendinitis, left leg M76.822 [facility] [place] [address] [place] [address] [place] [address] [id number] 10/27/2024 JOHNNA SNOOK Assessments Encounter Date Diagnosis (ICD Code) Assessment Notes Treatment Notes Treatment Clinical Notes Section Notes 01/25/2024 Tinea unguium (ICD-10 - B35.1) FUNGAL TOENAILS: Discussed various treatment options for fungal toenails including debridement, topical antifungals, oral antifungals, toenail avulsion, or toenail matrixectomy. NAIL DEBRIDEMENT: Nails 1-5 left were debrided extensively with nail nippers and emery board, reducing length and girth to pink healthy tissue with any subungual debris and necrotic tissue removed 01/25/2024 Pain in left toe(s) (ICD-10 - M79.675) 04/18/2024 Tinea unguium (ICD-10 - B35.1) FUNGAL TOENAILS: Discussed various treatment options for fungal toenails including debridement, topical antifungals, oral antifungals, toenail avulsion, or toenail matrixectomy. NAIL DEBRIDEMENT: Nails 1-5 left were debrided extensively with nail nippers and emery board, reducing length and girth to pink healthy tissue with any subungual debris and necrotic tissue removed 04/18/2024 Pain in left toe(s) (ICD-10 - M79.675) 07/18/2024 Tinea unguium (ICD-10 - B35.1) FUNGAL TOENAILS: Discussed various treatment options for fungal toenails including debridement, topical antifungals, oral antifungals, toenail avulsion, or toenail matrixectomy. NAIL DEBRIDEMENT: Nails 1-5 left were debrided extensively with nail nippers and emery board, reducing length and girth to pink healthy tissue with any subungual debris and necrotic tissue removed 07/18/2024 Pain in left toe(s) (ICD-10 - M79.675) 08/22/2024 Type 2 diabetes mellitus with other circulatory complications (ICD-10 - E11.59) 08/22/2024 Plantar fascial fibromatosis (ICD-10 - M72.2) Plantar Fascitis: I discussed anti-inflammatory treatment options and various means of pronation control with the patient. I educated the patient on icing and stretching, supportive shoegear, and the use of orthotic devices. Kenalog Injection: Following skin prep, a total of 3 ccs of a 1-1-1 mix of 0.5% marcaine plain, 1% lidocaine plain, and Kenalog was injected to the left heel. PowerStep Inserts: The patient was dispensed and fitted with over the counter arch supports. The patient was educated on their use and effect. All questions were answered. 10/05/2024 Plantar fascial fibromatosis (ICD-10 - M72.2) Plantar Fascitis: I discussed anti-inflammatory treatment options and various means of pronation control with the patient. I educated the patient on stretching, supportive shoegear, and the use of his orthotic devices. He has an OTC orthotic from our office that fits him well. His shoe is well worn and a new diabetic shoe order was placed. We will assess the need for in home PT and/or injection at visit in one week. 10/05/2024 Achilles tendinitis, left leg (ICD-10 - M76.62) ACHILLES TENDONITIS: I discussed anti-inflammatory treatment options and various means of immobilization with the patient. I educated the patient on icing and stretching, supportive shoegear, and the use of orthotic devices, padding, and bracing. He cannot tolerate a CAM boot due to his mobility issues requiring his use of a shoe on the left foot. 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 We opted for an Unna boot this week to reduce the inflammation and maintain shoe use. Next week may require the use of an ankle brace. Patient understands and agrees with plan. He will continue ROM exercises and massage calf. He will drink the allowed amount of water as a dialysis patient. He will reduce foods high in uric acid and sugar. 10/12/2024 Type 2 diabetes mellitus with other circulatory complications (ICD-10 - E11.59) monitor vascular changes, currently stable. 10/12/2024 Plantar fascial fibromatosis (ICD-10 - M72.2) stretches reviewed, stick to open kinetic chain stretches until in home physical therapy can be secured. Patient cannot attend outpatient PT as he is home bound unless his daughter drives in from 1.5 hours away. 10/26/2024 Plantar fascial fibromatosis (ICD-10 - M72.2) [...] begin in home P.T. next week through [facility]. 11/14/2024 Type 2 diabetes mellitus with other circulatory complications (ICD-10 - E11.59) 11/14/2024 Plantar fascial fibromatosis (ICD-10 - M72.2) Plantar Fascitis: I discussed anti-inflammatory treatment options and various means of pronation control with the patient. I educated the patient on icing and stretching, supportive shoegear, and the use of orthotic devices. Continue PowerStep inserts 10/26/2024 Localized edema (ICD-10 - R60.0) An unna boot was applied to the affected foot. The patient was instructed to keep it dry. Keep unna boot intact for 3-7 days, begin compression sock daily after it is removed. 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 10/05/2024 Type 2 diabetes mellitus with other circulatory complications (ICD-10 - E11.59) The lifetime risk of a foot ulcer for patients with diabetes (type 1 or 2) may be as high as 25 percent. Diabetic foot ulcers are a major cause of morbidity and mortality, accounting for approximately two-thirds of all nontraumatic amputations performed in the [place]. This observation illustrates the importance of prompt treatment of foot ulcers in patients with diabetes. The treatment of diabetic foot ulcers begins with a comprehensive assessment of the ulcer and the patient's overall medical condition. Evidence of underlying neuropathy, bony deformity, and peripheral artery disease should be actively sought. 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 10/26/2024 Type 2 diabetes mellitus with other circulatory complications (ICD-10 - E11.59) monitor vascular changes, currently stable. 10/12/2024 Achilles tendinitis, left leg (ICD-10 - M76.62) Patient will buy supportive shoes, use heel cup (dispensed) and orthotic (new or old is approved) in weight bearing. Patient will begin in home P.T. He has an appt in November for this but would like an earlier appt. I told him I would find out if this is possible. 11/14/2024 Posterior tibial tendinitis, left leg (ICD-10 - M76.822) Posterior Tibialis Tendon Dysfunction: I discussed anti-inflammatory treatment options and various means of immobilization with the patient. I educated the patient on icing and stretching, supportive shoegear, and the use of orthotic devices and bracing. 10/26/2024 Pain in left foot (ICD-10 - M79.672) apply biofreeze spray as needed for pain to heel. He states this does help. Do not ice due to vascular condition. 10/12/2024 Pain in left foot (ICD-10 - M79.672) apply biofreeze spray as needed for pain to heel. Do not ice due to vascular condition. 10/05/2024 Difficulty in walking (ICD-10 - R26.2) Instructed patient to stretch in open kinetic chain through out the day and to perform the basic plantar fascial stretches as tolerated daily. We will pursue PT once his pain and swelling are better controlled. Continue use of diabetic shoe and wheelchair. He will not ice the left foot due to PAD severity. 07/18/2024 Plantar fascial fibromatosis (ICD-10 - M72.2) Plantar Fascitis: I discussed anti-inflammatory treatment options and various means of pronation control with the patient. I educated the patient on icing and stretching, supportive shoegear, and the use of orthotic devices. Kenalog Injection: Following skin prep, a total of 3 ccs of a 1-1-1 mix of 0.5% marcaine plain, 1% lidocaine plain, and Kenalog was injected to the left heel 10/05/2024 Edema of foot (ICD-10 - R60.0) Unna Boot: An unna boot was applied to the affected foot. The patient was instructed to keep it dry and clean. It will be removed in office in one week. He will wear a diabetic sock daily over the unna boot. He will call with any changes or concerns. 10/05/2024 Left foot pain (ICD-10 - M79.672) Plan Of Treatment Pending Test Test Name Order Date X Ray : Foot, left 3 views 10/05/2024 PHYSICAL THERAPY 10/18/2024 Next Appt Details Provider Name:DANYELLE ESQUIVEL, 01/18/2025 09:40:00 AM, [address], [facility], [place], [place], [id number], Insurance Providers Payer Name Payer Address Payer Phone Subscriber Number Group Number Insured Name Patient Relationship to Insured Coverage Start Date Coverage End Date [employer] [address] [place]AD[place] [phone] [id number] KYLER DU Self - patient is the insured Medical (General) History Medical History History ICD Code iron deficiency anemia Heart Disease peripheral vascular disease anxiety Diabetic hypertension Surgical History Surgery Date(Month/Year) Pacemaker
--- OUTSIDE RECORDS SUMMARY | 2025-01-12 10:54 | XMS_ITS | Encounter Summary ---
Author Organization [facility] Healthcare Address [address] [place] [address] Care Team Providers Care Medical Massage Therapist Name Role Phone Kishore Rosario DO Primary Care Provider [phone]- [phone] Shahzad Paiz MD Unavailable [phone] Marlen Higgins MD Unavailable [phone] Demetrio Klein MD Unavailable [phone] Encounter Details Date Type Department Care Team (Late st Contact Info) Description 01/14/[address] [address] Jess Acosta Social History Tobacco Use Types Packs/Day Years Used Date Smoking Tobacco: Never Smokeless Tobacco: Never Alcohol Use Standard Drinks/Week Comments Yes 0 (1 standard drink = 0.6 oz pur e alcohol) Social Connection and Isolat ion Panel [NHANES] Answer Date Recorded In a typical week, how many times do you talk on the phone with family, friends, or neighbors? More than three times a week 12/25/2022 How often do you get togethe r with friends or relatives? Three times a week 12/25/2022 How often do you attend chur or synagogue services? More than 4 times per year 12/25/2022 Do you belong to any clubs o r organizations such as jainism groups, unions, fraternal or athletic groups, or school groups? No 12/25/2022 How often do you attend meet ings of the clubs or organizations you belong to? Never 12/25/2022 Are you , , di vorced, , never , or living with a partner? 12/25/2022 AUDIT-C Answer Date Recorded Q1: How often do you have a drink containing alcohol? Never 08/18/2022 Q2: How many drinks containi ng alcohol do you have on a typical day when you are drinking? Patient does not drink Q3: How often do you have si x or more drinks on one occasion? Never 08/18/2022 Overall Financial Resource Strain (CARDIA) Answe r Date Recorded How hard is it for you to pa y for the very basics like food, housing, medical care, and heating? Not hard at all 12/25/2022 Hunger Vital Sign Answer Date Recorded Within the past 12 months, y ou worried that your food would run out before you got the money to buy more. Never true 12/26/19 23 Within the past 12 months, t he food you bought just didn't last and you didn't have money to get more. Never true 12/25/2022 PRAPARE - Transportation Answer Date Re corded In the past 12 months, has l ack of transportation kept you from medical appointments or from getting medications? No 12/13 In the past 12 months, has l ack of transportation kept you from meetings, work, or from getting things needed for daily living? No 12/25/2022 Housing Stability Vital Sign Answer Javi e Recorded In the last 12 months, was t here a time when you were not able to pay the mortgage or rent on time? No 12/25/2022 In the last 12 months, how many places have you lived? 1 12/25/2022 In the last 12 months, was t here a time when you did not have a steady place to sleep or slept in a [place] [facility] [place] facility (including now)? 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 Gender Identity Not on file Sexual Orientation Not on file documented as of this encounter Plan of Treatment Not on file documented as of this encounter Visit Diagnoses Not on filedocumented in this encounter Care Teams Medical Massage Therapist Relationship Specialty Start Date End Date Kishore Rosario DO PCP - General Internal Medicine 04/13/17 Shahzad Paiz MD Referring Physician Nephrology 01/31/22 Marlen Higgins MD Consulting Physician Cardiology 01/31/22 Demetrio Klein MD [address] [place] [address] [place] [address] Surgeon Surgery 03/26/22 [place] Endocrinology 01/31/22 documented as of this encounter
--- OUTSIDE RECORDS SUMMARY | 2025-01-12 10:54 | XMS_ITS | Encounter Summary ---
Author Organization [facility] Healthcare Address [address] [place] [address] Care Team Providers Care Or Manager Name Role Phone Kishore Rosario DO Primary Care Provider + [phone] Shahzad Paiz MD Unavailable [phone] Marlen Higgins MD Unavailable [phone] Demetrio Klein MD Unavailable [phone] Encounter Details Date Type Department Care Team (Late st Contact Info) Description 07/13/2023 Telephone [facility] [address] [facility] [address] [place], [place] [id number] Demetrio Klein MD [address] [place] [address] [address] [facility] [address] [place] [address] Social History Tobacco Use Types Packs/Day Years [...] 12/25/2022 How often do you attend chur ch or anabaptist services? More than 4 times per year 12/25/2022 Do you belong to any clubs o r organizations such as cheondoism groups, unions, fraternal or athletic groups, or school groups? No 12/25/2022 How often do you attend meet ings of the clubs or organizations you belong to? Never 12/25/2022 Are you , , di vorced, , never , or living with a partner? 12/25/2022 AUDIT-C Answer Date Recorded Q1: How often do you have a drink containing alc ohol? Never 03/27/2023 Average Number of Drinks Not on file 023 Q3: How often do you have si x or more drinks on one occasion? Never 03/27/2023 Overall Financial Resource Strain (CARDIA) Answe r [...] place to sleep or slept in a halfway (including now)? No 12/25/2022 Personal Safety Answer Date Recorded Have you ever been in or are you currently in a harmful physical or emotional relationship or is someone making you feel afraid or unsafe? 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 Gender Identity Not on file Sexual Orientation Not on file documented as of this encounter Plan of Treatment Not on file documented as of this encounter Visit Diagnoses Not on filedocumented in this encounter Care Teams Or Manager Relationship Specialty Start Date End Date Kishore Rosario DO PCP - General Internal Medicine 04/13/17 Shahzad Paiz MD Referring Physician Nephrology 01/31/22 Marlen Higgins MD Consulting Physician Cardiology 01/31/22 Demetrio Klein MD [address] [place] [address] [place] [address] Surgeon Surgery 03/26/22 Dr Reba Diez [place], [place] Endocrinology 01/31/22 documented as of this encounter
--- OUTSIDE RECORDS SUMMARY | 2025-01-12 10:54 | XMS_ITS | Clinical Summary ---
Author Organization [facility] [place] [address] [place] [address] Care Team Providers Care Fpga Design Engineer Name Role Phone Kishore Rosario DO Primary Care Provider [phone] Shahzad Paiz MD Unavailable [phone] Marlen Higgins MD Unavailable [phone] Demetrio Klein MD Unavailable [phone] Allergies Active Allergy Reactions Criticality Noted Date Comments Iodinated Contrast Media Hives Medium 10/20/2021 Iodine And Iodide Containing Products Hives Medium injectable Ioversol Hives Medium Part of Iodine allergy Lisinopril Cough Low 04/14/2021 Medications atorvastatin (LIPITOR) 80 mg tablet Take 1 tablet (80 mg total) by mouth nightly 06/19/19 18 Active allopurinol (ZYLOPRIM) 100 mg tablet Take 1 tablet (100 mg total) by mouth daily Active cholecalciferol (VITAMIN D-3) 5,000 unit tablet Take 1 tablet (5,000 Units total) by mouth 2 (two) times a day Active nitroglycerin (NITROSTAT) 0.4 mg SL tabletIndications:C oronary arteriosclerosis in squaxin artery Place 1 tablet (0.4 mg total) under the tongue every 5 (five) minutes as needed for chest pain 25 tablet 10/28/19 19 Active omega 5-raa-ydf-fish oil 100-160-1,000 mg capsule Take 1 capsule by mouth 2 (two) times a day Active albuterol 2.5 mg /3 mL (0.083 %) nebulizer solution Take 3 mL (2.5 mg total) by nebulization every 4 (four) hours as needed 10/16/19 22 Active flash glucose scanning reader (FreeStyle Lizeth 2 [place]) [facility] Use as directed to test blood sugars. 11/21/19 22 Active flash glucose sensor (FreeStyle Lizeth 2 Sensor) kit Change sensor every 14 days. 11/21/19 22 Active multivitamin capsule Take 1 capsule by mouth daily Active ondansetron (ZOFRAN) 4 mg tablet Take 1 tablet (4 mg total) by mouth daily as needed 01/15/20 22 Active folic acid/vit B complex and C (TYLOR-LORENZO ORAL) Take 1 tablet by mouth daily Active gabapentin (NEURONTIN) 100 mg capsule Take 1 capsule (100 mg total) by mouth daily 11/12/19 23 Active epoetin cindi (Epogen) 10,000 unit/mL injection Inject 1 mL(69243 units subcutaneously) Thursday, Thursday and Thursday as needed for anemia during dialysis 12 mL 01/13/20 23 Active insulin aspart (NovoLOG) 100 unit/mL (3 mL) pen for injection Use aspart insulin only for sliding scale before meals. No sliding scale at bedtime. Do not take any insulin if blood sugar less than 140. Take 2 units between 141-160, take 3 units between 161-200, take 4 units between 201-250, take 6 units between 250-300, take 8 units between 301-350, take 10 units between 351-400, take 12 units between 401-450. Maximum 36 units daily as needed 15 mL 1 01/13/20 23 Active calcium acetate,phosphat bind, (PHOSLO) 667 mg capsule 02/18/20 23 Active diclofenac sodium (VOLTAREN) 1 % gel Apply 2 g topically 3 (three) times a day 02/01/20 23 Active nystatin powder 11/25/19 23 Active furosemide (LASIX) 80 mg tablet Take 1 tablet (80 mg total) by mouth daily Active amLODIPine (NORVASC) 5 mg tablet Take 1 tablet (5 mg total) by mouth daily 11/23/19 24 Active ezetimibe (ZETIA) 10 mg tablet Take 1 Tablet (10 mg) by mouth daily. 90 tablet 1 08/23/19 25 Active clopidogreL (PLAVIX) 75 mg tabletIndications:C oronary arteriosclerosis in squaxin artery TAKE 1 TABLET DAILY 90 tablet 2 10/25/19 25 Active carvediloL (COREG) 25 mg tablet Take 1 tablet (25 mg total) by mouth 2 (two) times a day with meals 180 tablet 3 10/28/19 25 Active TRESIBA 100 unit/mL (3 mL) pen for injection INJECT 25 UNITS SUBCUTANEOUSLY DAILY 10/08/19 25 Active Ozempic 1 mg/dose (4 mg/3 mL) pen injector injection INJECT 1MG SUBCUTANEOUSLY ONCE WEEKLY 10/18/19 25 Active prednisoLONE acetate (PRED FORTE) 1 % ophthalmic suspension 09/27/19 Active predniSONE (DELTASONE) 50 mg tablet Take one tablet 13 hours prior, 7 hours prior and 1 hour prior to procedure. 3 tablet 11/09/19 25 Active diphenhydrAMINE (BENADRYL) 50 mg capsuleIndications: contrast allergy pre-medication Take 1 capsule by mouth 1 hour prior to procedure 1 capsule 11/09/19 25 Active Active Problems Problem Noted Date Diagnosed Date Left carotid bruit 03/11/2024 Other complication of arteriovenous dialysis fis juancho 08/05/2023 ESRD (end stage renal disease) on dialysis 03/16 Assessment & Plan (12/02/2024 12:21 PM CDT): Dialyzing well status post fistulogram. Ditch removed in the office today. Good bruit and thrill on exam. Current duplex shows a patent fistula. Assessment & Plan (10/28/2024 10:39 AM CDT): Increased velocities noted at mid fistula. Discussed fistulogram procedure with the patient along with its potential risks. Answered all questions to their satisfaction. He is agreeable wishes to proceed. Assessment & Plan (06/17/2024 12:05 PM AGRICULTURAL SERVICE TECHNICIAN): Current AV duplex shows an outflow stenosis of the fistula. Discussed the need for fistulogram with potential intervention discussed procedure with the patient along with potential risks. Answered all questions at this time. He is agreeable wishes to proceed. Assessment & Plan (02/29/2024 11:43 AM CDT): Impression: Patient is being dialyzed through a right brachiocephalic AV fistula without any issues. Audible bruit and palpable thrill noted on exam. Patent stents and patent AV fistula is noted on AV duplex scan. Plan: Continue utilizing AV fistula for dialysis as per Nephrology. -patient to follow up in 3 months for re-evaluation with repeat AV duplex scan. Encouraged patient to make sooner appointments if there is any complications during dialysis. Assessment & Plan (07/14/2023 2:41 PM AGRICULTURAL SERVICE TECHNICIAN): Will proceed with right upper extremity AV fistulogram with possible intervention due to progression of stenosis mid fistula. Risks of the procedure communicated patient with full understanding. Wished to proceed. Assessment & Plan (04/13/2023 12:06 PM CDT): Impression: Patient is being dialyzed through a right brachiocephalic AV fistula without any complications. He is status post stent placement to the right cephalic vein for treatment of outflow stenosis. Audible bruit and palpable thrill noted on exam. Av duplex reveals a patent stent and patent fistula. Plan: Continue utilizing right brachiocephalic AV fistula for dialysis as per Nephrology. -patient to follow-up in 3 months for re-evaluation with repeat AV scan. Encouraged patient to make a sooner appointment if there is any complications during dialysis. Peripheral vascular disease 12/24/2022 Assessment & Plan (02/05/2023 10:10 AM CDT): Status post right above knee amputation. This is healed. Remove corie today. Can start working with prosthetics. Can follow-up p.r.n.. Assessment & Plan (12/24/2022 9:53 AM CDT): Nonhealing right 2nd toe amputation, no pulses on exam right foot. Patient with no history of noninvasive testing. Patient will require hospital admission, he will also require a bilateral lower extremity arterial Doppler to evaluate wound healing potential, and likely a right lower extremity angiogram Atherosclerosis of squaxin ar teries of right leg with ulceration of other part of foot 12/24/2022 Mixed diabetic hyperlipidemi a associated with type 2 diabetes mellitus 05/21/2022 Assessment & Plan (12/02/2024 12:21 PM CDT): Continue Lipitor Assessment & Plan (10/28/2024 10:37 AM CDT): Continue Lipitor Anemia of chronic renal failure, stage 5 022 03/04/2023 Chronic diastolic congestive heart failure 03/25 Hypotension due to drugs 03/25/2021 Gout 07/22/2017 03/04/2023 History of CVA (cerebrovascular accident) 2017 Anxiety and depression 04/14/2017 COPD (chronic obstructive pulmonary disease) Anxiety 04/14/2017 03/04/2023 Chest discomfort 12/08/2016 Assessment & Plan (12/08/2016 3:34 PM CDT): Atypical chest discomfort; reassured pt this is unlikely to be a cardiac problem? Pacemaker 12/08/2016 Overview (04/22/2017): Medtronic Dual Pacemaker, multiple generator changes the most recent being in 06/20/2011, chronic leads 1988. Vent lead is off-Bill Single Pm. Carelink remote home monitor Q3 mo, office pacer checks Q1 yr. Assessment & Plan (04/14/2017 9:32 PM CDT): Pacemaker checked in October, normal function, and had a remote check in January 2017. Longevity 8 years. Assessment & Plan (12/08/2016 3:44 PM CDT): Cont in Pacemaker .clinic. 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 SHAKEEL to th prox LAD Jul 2016. 3 hour episode of chest pain after some physical work a few days ago with no recurrence, probably an anginal episode, doubt ACS Assessment & Plan (12/08/2016 3:42 PM CDT): 2013: LOZENGE DOUGH MIXER RCA, collateralized. SHAKEEL to th prox LAD Jul 2016. Cont w/ Brilinta, back on ASA Sinoatrial node dysfunction 05/29/2015 Overview (2016): Sinus node dysfunction Assessment & Plan (10/18/2021 1:53 PM CDT): Left-sided pacemaker in place Coronary artery occlusion 10/29/2013 Overview (09/18/2016): CHR TOT OCCLUS COR ARTRY Essential (primary) hypertension 10/29/2013 Overview (09/18/2016): BENIGN HYPERTENSION Assessment & Plan (12/02/2024 12:21 PM CDT): Continue amlodipine Assessment & Plan (10/28/2024 10:38 AM CDT): Continue amlodipine, carvedilol Assessment & Plan (06/17/2024 12:04 PM AGRICULTURAL SERVICE TECHNICIAN): Continue amlodipine and carvedilol Assessment & Plan (02/29/2024 11:42 AM CDT): Impression: Chronic and stable. Plan: Continue losartan carvedilol and isosorbide Assessment & Plan (04/13/2023 12:05 PM CDT): Impression: Chronic and stable. Plan: Continue losartan, carvedilol, isosorbide Assessment & Plan (03/16/2023 11:11 AM CDT): Continue losartan, carvedilol, isosorbide Assessment & Plan (09/04/2022 12:49 PM CDT): Carvedilol Assessment & Plan (07/28/2022 2:57 PM AGRICULTURAL SERVICE TECHNICIAN): Carvedilol Assessment & Plan (03/24/2022 10:52 AM CDT): Chronic stable hypertension be control with medications. Continue medications as per PCP and Nephrology. Assessment & Plan (10/18/2021 1:53 PM CDT): Stable use medication. Continue current medication regimen Assessment & Plan (04/14/2017 9:30 PM CDT): Hypertension is barely at goal Orthostasis 10/29/2013 Overview (09/18/2016): Orthostasis Assessment & Plan (04/14/2017 9:43 PM CDT): Has had some dizziness and low blood pressures recently. Type 2 diabetes mellitus wit h hyperglycemia, with long-term current use of insulin 02/16/2013 Overview (2016): DMII WO CMP UNCNTRLD Assessment & Plan (12/02/2024 12:21 PM CDT): Continue insulin Assessment & Plan (10/28/2024 10:38 AM CDT): Continue insulin Assessment & Plan (06/17/2024 12:04 PM AGRICULTURAL SERVICE TECHNICIAN): Continue insulin Assessment & Plan (02/29/2024 11:42 AM CDT): Impression: Chronic with good glucose control. Plan: Continue Trulicity Assessment & Plan (04/13/2023 12:05 PM CDT): Impression: Chronic with good glucose control. Plan: Continue Trulicity Assessment & Plan (03/16/2023 11:11 AM CDT): Continue current medical therapy Assessment & Plan (03/24/2022 10:53 AM CDT): Chronic diabetes being controlled with medications and diabetic diet. Continue monitoring blood sugars of following a diabetic diet and taking medications as per PCP. Gangrene of right foot Hyponatremia Anemia in chronic kidney disease, on chronic camilla lysis S/P AKA (above knee amputation) unilateral, righ t Assessment & Plan (03/04/2023 1:58 PM CDT): Right AKA healed. Can continue working with [employer]. Follow up p.r.n.. Hyperphosphatemia History of sick sinus syndrome Resolved Problems Problem Noted Date Diagnosed Date Resolved Date Diabetic ulcer of toe of rig ht foot associated with type 1 diabetes mellitus, with necrosis of muscle 12/25/2022 08/26/2023 Ulcer of right foot, with necrosis of muscle 3 08/26/2023 Assessment & Plan (12/24/2022 9:52 AM CDT): Patient with nonhealing right 2nd toe amputation site open wound, with surrounding dry gangrene, soft tissue infection. Status post p.o. antibiotic therapy with minimal improvement in symptoms. Patient will require admission, IV antibiotic therapy, dressing changes, bilateral lower extremity arterial Doppler, likely right lower extremity angiogram, right foot debridement, possible right 1st and 3rd toe amputation. Osteomyelitis of right foot, unspecified type 12/25/19 23 08/27/2023 ESRD on hemodialysis 01/31/2022 024 Overview (01/31/2022): Added automatically from request for surgery [id number] Assessment & Plan (03/16/2023 11:12 AM CDT): Three-month follow-up regarding right upper extremity AV fistula. Has been dialyzing with intermittent high venous pressures. Denies any issues with prolonged bleeding. Duplex scan today shows an elevated velocity at the cephalic arch which is higher than his normal. Discussed the need for a fistulogram discussed the potential risks involved and answered all questions at this time. Patient to be scheduled next week. He agrees wishes to proceed. Assessment & Plan (12/24/2022 10:04 AM CDT): End-stage renal disease requiring hemodialysis dialyzing with a right brachiocephalic AV fistula functioning well. Status post recent diagnostic fistulogram in August of 2022. Patient does have a venous outflow stenosis which is asymptomatic, and will be followed. No surgical procedure intervention indicated at this time Assessment & Plan (09/04/2022 12:51 PM CDT): Patient continues to do well status post diagnostic fistulogram of right brachiocephalic AV fistula most recently. He does have increased velocities noted proximally, however no stenosis seen. Will continue utilizing right brachiocephalic AV fistula, have patient follow-up in the office in 3 months with right upper extremity fistula scan Assessment & Plan (07/28/2022 2:57 PM AGRICULTURAL SERVICE TECHNICIAN): Venous outflow stenosis seen on most recent imaging. Will have patient scheduled for right upper extremity brachiocephalic AV fistulogram possible intervention. Risks of procedure communicated patient with full understanding. Wished to proceed Assessment & Plan (03/24/2022 10:55 AM CDT): Mr. Du is currently being dialyzed through a right brachiocephalic fistula created 10/24/2021. He has been utilizing the fistula without any issue for the past 2 weeks. He comes in now for discussion and scheduling of his Perma catheter removal. All questions answered at this time. Will schedule for a PermCath removal. CKD (chronic kidney disease) stage 4, GFR 15-29 ml/min 10/18/2021 05/02/2022 Overview (10/18/2021): Added automatically from request for surgery [id number] Assessment & Plan (11/06/2021 12:29 PM CDT): Assessment/plan: Right brachiocephalic fistula with excellent thrill. Follow-up in 4 weeks with baseline duplex. If the fistula matures this can be accessed following that. Precordial pain 10/27/2018 08/26/2023 Stable angina 10/16/2017 08/26/2023 Cough 04/14/2017 08/26/2023 Assessment & Plan (04/14/2017 9:37 PM CDT): Trouble some cough, probably secondary to COPD, but will out Choco induced cough. FRANCISCO (dyspnea on exertion) 04/14/2017 Overview (04/14/2017): Found to have moderate obstructive disease by PFTs. BNP only 121, doubt SOB is related to any CHF CKD stage 5 due to type 2 diabetes mellitus 05/29/2015 05/02/2022 Overview (2016): CKD stage 3 due to type 2 diabetes mellitus Assessment & Plan (10/18/2021 1:53 PM CDT): Impression: Patient with worsening kidney function requiring dialysis in the near future. Venous mapping shows patient could be a good candidate for fistula creation. He does have a previous left-sided pacemaker present. Plan: Will proceed with right arm AV fistula creation within the next 1-[address] Reece Klein. Risks of procedure communicated to the patient with full understanding. He wished to proceed. Patient seen and evaluated with Dr. Reece Klein Assessment & Plan (12/08/2016 3:49 PM CDT): Recent acute on chronic renal failure, exacerbated by IV contrast w/ cath, improved. Followed by Dr. Paiz. Coronary artery abnormality 05/29/2015 09/06/2019 Overview (2016): Coronary artery disease with stable angina pectoris Mixed hyperlipidemia 10/29/2013 024 Overview (09/18/2016): MIXED HYPERLIPIDEMIA Assessment & Plan (03/16/2023 11:11 AM CDT): Continue Lipitor Assessment & Plan (09/04/2022 12:49 PM CDT): Lipitor Assessment & Plan (07/28/2022 2:57 PM AGRICULTURAL SERVICE TECHNICIAN): Lipitor Assessment & Plan (04/14/2017 9:30 PM CDT): January 2017: LDL 91, taking atorvastatin 80 mg daily. Good but not great. Assessment & Plan (12/08/2016 3:46 PM CDT): Takes atorvastatin. History of cardiac pacemaker in situ 10/29/2013 04/14/2017 Overview (2016): STATUS CARDIAC PACEMAKER Type 2 diabetes mellitus wit h diabetic neuropathy, with long-term current use of insulin 04/13/2023 Encounters Date Type Department Care Team Description 12/06/2024 11:00 AM CDT Office Visit [facility] [address] [facility] [address], [place] [address] Tyron Romero MD Cardiac arrhythmia, unspecified cardiac arrhythmia type (Primary Dx); Pacemaker; Sinoatrial node dysfunction (HCC) 12/06/2024 10:45 AM CDT Ancillary Procedure [facility] [address] [facility] [address], [place] [address] Cardiac pacemaker in situ (Primary Dx); Sinoatrial node dysfunction (HCC) 12/06/2024 Telephone [facility] Cardiology [address] [place] [address] Charlie Bernard MD 12/02/2024 10:39 AM CDT - 12/02/2024 11:59 PM CDT Hospital Encounter [facility] Medical Office Building [address] [address] ESRD (end stage renal disease) on dialysis (HCC); Other complication of arteriovenous dialysis fistula, initial encounter Discharge Disposition: Discharge to home or self care 12/02/2024 10:38 AM CDT - 12/02/2024 11:59 PM CDT [facility] at [facility] [address] [facility] [address] [place] [address] ESRD (end stage renal disease) on dialysis (HCC) (Primary Dx); Type 2 diabetes mellitus with hyperglycemia, with long-term current use of insulin (HCC); Essential (primary) hypertension; Mixed diabetic hyperlipidemia associated with type 2 diabetes mellitus (HCC) Discharge Disposition: Discharge to home or self care 12/01/2024 Orders Only [facility] [address] [facility] [address], [place] [address] Tyron Romero MD Sinoatrial node dysfunction (HCC) (Primary Dx) 11/30/2024 Telephone [facility] Medical [facility] Cardiology [address] [facility] [address] [place] [phone] Charlie Bernard MD 11/28/2024 Telephone [facility] Cardiology [address] [place] [address] [address] [place] [phone] Charlie Bernard MD 11/14/2024 Telephone [facility] [address] [place] [address] [address] [place] [phone] Charlie Bernard MD 11/09/2024 12:00 PM CDT - 11/09/2024 1:00 PM CDT Surgery [facility] Cardiac Check Processor [address] [place] [address] Demetrio Klein MD Dialysis Circuit Angiogram 11/09/2024 10:03 AM CDT - 11/09/2024 1:43 PM CDT Hospital Encounter [facility] Cardiac Check Processor [address] [place] [address] Demetrio Klein MD ESRD (end stage renal disease) on dialysis (HCC) Discharge Disposition: Discharge to home or self care 11/08/2024 Orders Only [facility] Dialysis Access Center at [facility] [address] [facility] [address] [place] [address] Demetrio Klein MD 11/03/2024 Telephone [facility] Cardiology [address] [place] [address] [place] [phone] Charlie Bernard MD 10/28/2024 9:19 AM CDT - 10/28/2024 11:59 PM CDT Hospital Encounter [facility] Medical Office Building 2 Vascular [address] [facility] [place] [address] [place] [address] ESRD (end stage renal disease) on dialysis (HCC); Other complication of arteriovenous dialysis fistula, subsequent encounter Discharge Disposition: Discharge to home or self care 10/28/2024 9:18 AM CDT - 10/28/2024 11:59 PM CDT Hospital Encounter [facility] Dialysis Access Center at [address] [place] [address] Essential (primary) hypertension (Primary Dx); Type 2 diabetes mellitus with hyperglycemia, with long-term current use of insulin (HCC); Mixed diabetic hyperlipidemia associated with type 2 diabetes mellitus (HCC); ESRD (end stage renal disease) on dialysis (HCC); Other complication of arteriovenous dialysis fistula, initial encounter Discharge Disposition: Discharge to home or self care 10/26/2024 11:30 AM CDT Ancillary Procedure [facility] Cardiology [address] [place] [phone] Pacemaker (Primary Dx); SSS (sick sinus syndrome) (HCC) 10/26/2024 Telephone [facility] Cardiology [address] [place] [address] [place] [phone] Charlie Bernard MD 10/21/2024 Telephone [facility]iology [address] [place] [address] [place] [phone] Charlie Bernard MD 10/20/2024 9:00 AM CDT Ancillary Procedure [facility] [address] [place] [address] [place] [phone] Pacemaker (Primary Dx); SSS (sick sinus syndrome) (HCC); History of CVA (cerebrovascular accident) 10/20/2024 Telephone [facility] Cardiology [address] [place] [address] [place] [phone] Charlie Bernard MD from Last 3 Months Immunizations Immunization Administration Dates Next Due Influenza, Quadrivalent, Marizol l Culture-based MDCK, Antibiotic Free, Intramuscular 05/27/2018 Influenza, Quadrivalent, Hig h Dose, Preservative Free, Intrr 05/02/2020 Influenza, Quadrivalent, Spl it, Preservative Free, Intramuscular 03/22/2021 Influenza, Trivalent, High D ose, Split, Preservative Free, Intramuscular 05/24/2019 Influenza, Trivalent, IM (MDV) ,05/24/2019,06/04/2015,04/01 Influenza, Trivalent, Preser vative Free, Intramuscular 07/24/2017 Pneumococcal Conjugate 7-Valent 08/09/2016 Surgical History Surgery Date Site/Laterality Comments CARDIAC PACEMAKER PLACEMENT 06/15/1988 - 06/14/1989 CARDIAC STENT PLACEMENT 06/15/2016 - 06/14/2017 ANKLE FRACTURE SURGERY Left CATARACT EXTRACTION, BILATERAL AV FISTULA PLACEMENT 10/24/2021 Right RUE brachiocephalic AVF - Dr. Reece Klein TUNNELED VENOUS CATHETER PLACEMENT 01/03/2022 Right RIJ permacath inserted at [facility] (removed 03/26/22 - Dr. Demetrio Klein) AV FISTULA REPAIR 03/27/2023 Right RUE AVF - stent cephalic arch - Dr. Reece Klein AV FISTULA REPAIR 08/18/2022 Right RUE AVG - fistulogram - no intervention - Dr. Reece Klein AV FISTULA REPAIR 02/07/2022 Right RUE AVG - fistulogram - no intervention - Dr. Reece Klein AV FISTULA REPAIR 07/17/2023 Right RUE AVF - angioplastyx2 cephaic vein - Dr. Demetrio Klein VASCULAR SURGERY PROCEDURE 11/09/2024 Right Medical devices from this surgery are in the Medical Devices section. VASCULAR SURGERY PROCEDURE 11/09/2024 N/A RUE AVF - angioplasty&stent AVF, angioplasty cephalic arch, and DCB subclavian vein - Dr. Demetrio Klein Medical devices from this surgery are in the Medical Devices section. Medical History Medical History Date Comments Diabetic neuropathy associat ed with type 2 diabetes mellitus (HCC) Diabetic Neuropathy CAD (coronary artery disease) he art disease End stage renal disease (HCC) 2021 ESRD - Dialysis - T/TH/SAT - [facility]. Small amount of urine. permacath to Right Chest. Hypotension on dialysis days . has to hold BP meds before dialysis Myocardial infarction ([facility]) 2004 Hypertension CHF (congestive heart failure) ([facility]) COPD (chronic obstructive pu lmonary disease) ([facility]) Covid 08/29/2021 hospitalized dc 09/04/2021 with oxygen Dizziness on standing Orthostatic hypotension Pneumonia due to COVID-19 virus 08/29/2021 Covid Pneumonia - hosp x 6 days. Oxygen support Chest pain 09/2021 has ntg Obesity Chronic pain disorder back/ankle s History of oxygen administration when dc'd from hospital with covid pneumonia Requires supplemental oxygen 1.5 -2L as needed. SSS (sick sinus syndrome) ([facility]) s/p pacemaker insertion in 1988. Replaced 2011 GERD (gastroesophageal reflux disease) takes protonix as needed. Anemia 2021 3 units of PRBC' s Type 2 diabetes mellitus ([facility]) I DDM Stroke ([facility]) x1 2017 - Right side numbess. 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 Uses self-applied continuous glucose monitoring device Family History Medical History Relation Name Comments Diabetes Other 1 Family history of Diabetes mellitus; Obesity Other 2 Family history of Obesity; Kidney disease Other 3 Family histor y of Renal disease; Stroke Other 4 Family history of Stroke; Ovarian cancer Other 5 Family histor y of Cancer, ovarian; Coronary artery disease Other 6 Fami ly history of Coronary artery disease; Other Other 7 Family history of Other; Relation Name Status Comments Other 1 Other 2 Other 3 Other 4 Other 5 Other 6 Other 7 Social History Tobacco Use Types Packs/Day Years Used Date Smoking Tobacco: Never Smokeless Tobacco: Never Tobacco Cessation:Counseling Given: Not Answered Alcohol Use Standard Drinks/Week Comments Yes 0 [...] week 12/25/2022 How often do you attend [facility] or spiritism services? More than 4 times per year 12/25/2022 Do you belong to any clubs o r organizations such as evangelical groups, unions, fraternal or athletic groups, or school groups? No 12/25/2022 How often do you attend meet ings of the clubs or organizations you belong to? Never 12/25/2022 Are you , , di vorced, , never , or living with a partner? 12/25/2022 AUDIT-C Answer Date Recorded Q1: How often do you have a drink containing alcohol? Never 11/09/2024 Q2: How many drinks containi ng alcohol do you have on a typical day when you are drinking? Patient does not drink Q3: How often do you have si x or more drinks on one occasion? Never 11/09/2024 Overall Financial Resource Strain (CARDIA) Answe r [...] place to sleep or slept in a detention (including now)? No 12/25/2022 Personal Safety Answer Date Recorded Have you ever been in or are you currently in a harmful physical or emotional relationship or is someone making you feel afraid or unsafe? 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 Gender Identity Not on file Sexual Orientation Not on file Obstetrics History Last Filed Vital Signs Vital Sign Reading Time Taken Comments Blood Pressure 108/56 12/06/2024 10:14 AM CDT Pulse 84 12/02/2024 11:32 AM CDT Temperature 36.8 C (98.2 F) 12/02/2024 11:32 AM CDT Respiratory Rate 16 11/09/2024 1:15 PM CDT Oxygen Saturation 96% 12/02/2024 11:32 AM CDT Inhaled Oxygen Concentration - - Weight 88.5 kg (195 lb) 12/06/2024 10:14 AM CDT Height 180.3 cm (5' 11) 12/06/2024 10:14 AM CDT Body Mass Index 27.2 12/06/2024 10:14 AM CDT Plan of Treatment Health Maintenance Due Date Last Done Comments Albumin Creatinine Ratio, Urine 1955 Colon Cancer Screening-Colonoscopy 1955 Depression Screening 1955 Hepatitis C Screening 1955 Dilated Eye Exam 1955 Foot Exam 1955 DTaP/Tdap/Td Vaccine (1 - Tdap) 1964 Lung Cancer Screening 09/20/2003 Zoster Vaccine (1 of 2) 09/20/2003 Pneumococcal vaccine 65+ (2 of 2 - PPSV23) 10/04/2016 08/09/2016 Well Visit 65+ 2018 Hemoglobin A1C 06/26/2023 12/24/2022 Covid-19 Vaccine (3 - 2023-2 5 season) 2024 09/05/2020, 08/15/2020 Influenza Vaccine (#1) 2025 , 03/22/2021, 05/02/2020, Additional history exists Lipid Panel 10/07/2025 10/07/2024, 02/14, 12/31/2022, Additional history exists Fall Risk Assessment 11/09/2025 11/09/2024 eGFR 11/09/2025 11/09/2024, 06/16, 07/17/2023, Additional history exists Hepatitis B Screening Completed 09/04/2022, 023 Medical Devices Implanted Type Area Personnel Research Psychologist Device Identifier Shelf Expiration Date Model / Serial / Lot Intra Ocular Lens Lens Bilateral : Eye Pacemaker-2011 Medtronic Implanted:11/2011 (Quantity not on file) Pacemaker Chest Medtronic SSS ADAPTA [id number] / [id number] / CHRONIC LEADS 1988 Description:Ventricular lead is off Cardiac Stent Implanted:Qty: 1 Stent Heart [place] [facility] Covera 6mm 8fr 60mm 80cm Cover Helical Strut Thumbwheel [id number] - [id number] Implanted:Qty: 1 on 03/27/2023 by Reece Klein MD at [facility] 05/09/2024 [id number] / / [id number] [place] Per[facility] Covera 8mm 8fr 40mm 80cm Cover Helical Strut Thumbwheel [id number] - [id number] Implanted:Qty: 1 on 11/09/2024 by Demetrio Klein MD at [facility] 10/29/2025 [id number] / / [id number] Procedures Procedure Name Priority Date/Time Associated Diagnosis Comments ECG 12-LEAD Routine 12/06/2024 10:15 AM CDT Cardiac arrhythmia, unspecified cardiac arrhythmia type DEVICE CHECK - IN OFFICE Routine 12/06/2024 9:49 AM CDT Sinoatrial node dysfunction (HCC) HEMODIALYSIS ACCESS Schedule Routine, Read Routine (OP Routine) 12/02/2024 11:30 AM CDT ESRD (end stage renal disease) on dialysis (HCC) Other complication of arteriovenous dialysis fistula, initial encounter DIALYSIS CIRCUIT/FISTULA STENT 15473 Routine 11/09/2024 12:38 PM CDT ESRD (end stage renal disease) on dialysis (HCC) INTRO CATH DIALYSIS CIRCUIT DX ANGRPH FLUOR 68494 Routine 11/09/2024 12:38 PM CDT ESRD (end stage renal disease) on dialysis (HCC) POCT GLUCOSE DEVICE Routine 11/09/2024 10:19 AM CDT EGFR STAT 11/09/2024 10:12 AM CDT APTT STAT 11/09/2024 10:12 AM CDT PROTIME-INR STAT 11/09/2024 10:12 AM CDT CBC WITHOUT DIFFERENTIAL STAT 11/09/2024 10:12 AM CDT BASIC METABOLIC PANEL STAT 11/09/2024 10:12 AM CDT US HEMODIALYSIS ACCESS Schedule Routine, Read Routine (OP Routine) 10/28/2024 10:54 AM CDT ESRD (end stage renal disease) on dialysis (HCC) Other complication of arteriovenous dialysis fistula, subsequent encounter DEVICE CHECK - IN OFFICE Routine 10/26/2024 10:37 AM CDT SSS (sick sinus syndrome) (HCC) DEVICE CHECK - REMOTE Routine 10/20/2024 2:41 PM CDT SSS (sick sinus syndrome) (HCC) History of CVA (cerebrovascular accident) POCT LIPID PANEL Routine 10/07/2024 10:19 AM CDT 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 PM CHECK (IN OFFICE) Patient ID: Kyler Du is a 69 y.o. male This patient received a Medtronic Pacemaker. They had a routine in-office device interrogation on 12/06/24 Device implant indications: Sinoatrial node dysfunction Interrogation of the patient's device demonstrates the following: Presenting EGM: V paced @ 65 bpm 12 lead EKG shows what appears to be sinus rhythm with normal AV page conduction and narrow QRS complex Underlying rhythm: As above Original Device Settings Right Ventricle Sensitivity (mV) 2.0 mV Pacing Outputs 2.0 V @ 0.4 ms Testing Measurements Right Ventricle Sensitivity (mV) Not done mV Impedence (Ohms) 465 ohms Pace Threshold 2.0 V @ 0.4 ms Pacing % Info not available % Battery Status: Battery reached recommended replacement time on September 14, 2024 Episodes last 90 days/Comments: [place] unable to determine %, . NORMAL DEVICE FUNCTION PROGRAMMED MEDICATIONS: Anti-coagulant(s): Plavix 75 mg daily Anti-arrhythmic(s): Coreg 25 mg twice daily, Norvasc 5 mg daily PLAN: 1) Medtronic Pacemaker evaluation 2) may scheduled for replacement. 3) Programming appropriate for device measurements Micah Melendez, RN Tyron Romero MD CV CARDIAC SERVICES PROC EDURES Final Result * Hemodialysis Access (12/02/2024 11:30 AM CDT) Anatomical Region Laterality Modality Vascular N/A Ultrasound 12/02/2024 11:0 1 AM CDT Narrative 12/03/2024 12:15 PM CDT Hemodialysis Access Duplex Report Patient Name: KYLER DU E : 1955 (69y 2m) Gender: M Study Date: 12/02/2024 11:01:28 AM Service Vehicle Operator: Megan Dickson Provider: DEMETRIO KLEIN Provider: DEMETRIO KLEIN PROCEDURES: Vascular Report: Color Duplex ultrasound with velocity measurements was performed of the arteriovenous fistula in the right upper extremity. INDICATIONS: Dialysis graft complication and Post op. HISTORY: S/P STENT RIGHT AVF, BA RIGHT CEPH V ARCH AND DCBA RT SCV 11/09/2024 S/P BA RIGHT CEPH V ARCH STENT 07/04/2024 S/P STENT RIGHT CEPH ARCH 03/27/2023 S/P RGHT BRACHIOCEPH AVF10/24/2021. COMPARISONS: The previous exam was completed on 10/28/2024. AVF: Vessel Velocity Rt Location Brachioceph AVF Rt [place] Artery 250.00 cm/sec Rt [place] Artery VF 512.00 mL/min Rt Arterial Anast 771.00 cm/sec Rt Prx Graft 141.00 cm/sec Rt Mid AVF 87.00 cm/sec Rt Mid AVF VF 645.00 mL/min Rt Dst AVF 101.00 cm/sec Rt [place] Vein 102 Cephalic v cm/sec RIGHT STENT MEASUREMENTS: Vessel Velocity Location AVF Rt Stent Prx PSV 144.00 cm/sec Rt Stent Mid PSV 121.00 cm/sec Rt Stent Dst PSV 102.00 cm/sec Location 2 Cephalic Arch Rt Stent 2 Prx PSV 210.00 cm/sec Rt Stent 2 Mid PSV 178.00 cm/sec Rt Stent 2 Dst PSV 223.00 cm/sec Rt Stent 2 Dst [place] PSV 175 Subclavian v cm/sec FINDINGS: Study Quality: The study quality is adequate. Fistula 1: The arteriovenous fistula is located in the right arm. Patent upper extremity arteriovenous fistula with no evidence of stenosis. Stent 1: The stent is located in the avf. Patent upper extremity stent with no evidence of stenosis. Stent 2: The stent is located in the cephalic arch. Patent upper extremity stent with no evidence of stenosis. CONCLUSIONS: 1. Increased velocity in the fistula at the mid portion of the upper arm/forearm. Electronically Signed By: Dmeetrio Klein MD 12/03/2024 11:47:11 AM CDT Procedure Note Demetrio Klein MD - 12/03/2024 Hemodialysis Access Duplex Report Patient Name: KYLER DU E : 1955 (69y 2m) Gender: M Study Date: 12/02/2024 11:01:28 AM Service Vehicle Operator: Megan Dickson Provider: DEMETRIO KLEIN Provider: DEMETRIO KLEIN PROCEDURES: Vascular Report: Color Duplex ultrasound with velocity measurements wasperformed of the arteriovenous fistula in the right upper extremity. INDICATIONS: Dialysis graft complication and Post op. HISTORY: S/P STENT RIGHT AVF, BA RIGHT CEPH V ARCH AND DCBA RT SCV 11/09/2024 S/P BA RIGHT CEPH V ARCH STENT 07/04/2024 S/P STENT RIGHT CEPH ARCH 03/27/2023 S/P RGHT BRACHIOCEPH AVF10/24/2021. COMPARISONS: The previous exam was completed on 10/28/2024. AVF: Vessel Velocity Rt Location Brachioceph AVF Rt [place] Artery 250.00 cm/sec Rt [place] Artery VF 512.00 mL/min Rt Arterial Anast 771.00 cm/sec Rt Prx Graft 141.00 cm/sec Rt Mid AVF 87.00 cm/sec Rt Mid AVF VF 645.00 mL/min Rt Dst AVF 101.00 cm/sec Rt [place] Vein 102 Cephalic v cm/sec RIGHT STENT MEASUREMENTS: Vessel Velocity Location AVF Rt Stent Prx PSV 144.00 cm/sec Rt Stent Mid PSV 121.00 cm/sec Rt Stent Dst PSV 102.00 cm/sec Location 2 Cephalic Arch Rt Stent 2 Prx PSV 210.00 cm/sec Rt Stent 2 Mid PSV 178.00 cm/sec Rt Stent 2 Dst PSV 223.00 cm/sec Rt Stent 2 Dst [place] PSV 175 Subclavian v cm/sec FINDINGS: Study Quality: The study quality is adequate. Fistula 1: The arteriovenous fistula is located in the right arm. Patentupper extremity arteriovenous fistula with no evidence of stenosis. Stent 1: The stent is located in the avf. Patent upper extremity stentwith no evidence of stenosis. Stent 2: The stent is located in the cephalic arch. Patent upper extremitystent with no evidence of stenosis. CONCLUSIONS: 1. Increased velocity in the fistula at the mid portion of the upperarm/forearm. Electronically Signed By: Demetrio Klein MD 12/03/2024 11:47:11 AM CDT Result [facility] Demetrio Klein MD IMG US PROCEDURES Final Re sult * INTRO CATH DIALYSIS CIRCUIT DX ANGRPH FLUOR 99789, DIALYSIS CIRCUIT/FISTULA STENT 03310 (512:38 PM CDT) Anatomical Region Laterality Modality X-Ray Angiograph y Narrative 11/09/2024 12:50 PM CDT Please see OpNote for result. Demetrio Klein MD CV CARDIAC CATH PROCEDURES Final Result * (ABNORMAL) POCT glucose (11/09/2024 10:19 AM CDT) [facility] Glucose, POC 252(H) 70 - 199 mg/dL Blood 11/09/2024 10:1 9 AM CDT 11/09/2024 10:19 AM CDT Demetrio Klein MD LAB POCT ORDERABLES - LUCIO CE Final Result Performing Organization Address [facility] Co de Phone Number TOMY [address] [place] [address] * (ABNORMAL) eGFR (11/09/2024 10:12 AM CDT) [facility] eGFR 10(L) >=60 mL/min/1. 73 m2 Comment: Interpretive Data Reference Interval Normal >/= 90 mL/min/1.73m2 Mildly decreased* 60 - 89 mL/min/1.73m2 Mildly to moderately decreased 45 - 59 mL/min/1.73m2 Moderately to severely decreased 30 - 44 mL/min/1.73m2 Severely decreased 15 - 29 mL/min/1.73m2 Kidney Failure < 15 mL/min/1.73m2 *Relative to young adult level Estimated glomerular filtration rate is determined by the 2020 CKD-EPI equation recommended by the National Kidney Foundation (A Unifying Approach to GFR Estimation: Recommendations of the NKF-ASK Task Force on Reassessing the Inclusion of Race in Diagnosing Kidney Disease, JASN 2020). The CKD-EPI equation should not be used for patients with unstable renal function and has not been validated in children and those over 70. Current interpretive data was last reviewed 2021. Blood 11/09/2024 10:1 2 AM CDT 11/09/2024 10:22 AM CDT Demetrio Klein MD LAB BLOOD ORDERABLES Final Result Performing Organization Address City/[facility]/ZIP Co de Phone Number TOMY [address] [place] [address] * aPTT (11/09/2024 10:12 AM CDT) aPTT 30 22 - 37 sec Comment: Interpretive data aPTT test has not been evaluated for monitoring heparin therapy. The anti-Xa is the preferred test. Current interpretive data was last revised on 2019. Blood 11/09/2024 10:1 2 AM CDT 11/09/2024 10:22 AM CDT Demetrio Klein MD LAB BLOOD ORDERABLES Final Result Performing Organization Address [facility] de Phone Number [address] [address] * Protime-INR (11/09/2024 10:12 AM CDT) [facility] PT 14.2 12.0 - 14.6 sec INR 1.1 0.9 - 1.2 [facility] Comment: Ref Range High Interpretive data Oral anticoagulant therapeutic ranges: Venous thromboembolism prophylaxis or treatment: 2.0-3.0 CARDIOLOGY Standard range: 2.0-3.0 High-intensity range: 2.5-3.5 Refer to indication-specific guidelines for appropriate target ranges for prosthetic heart valve replacement. Current interpretive data was last revised on 2019. Blood 11/09/2024 10:1 2 AM CDT 11/09/2024 10:22 AM CDT Demetrio Klein MD LAB BLOOD ORDERABLES Final Result Performing Organization Address [facility] de Phone Number [address] [address] * (ABNORMAL) CBC without differential (11/09/2024 10:12 AM CDT) Pathologist [facility] WBC 6.98 3.80 - 9.90 K/cumm Hgb 12.1(L) 13.0 - 17.5 g/dL [facility] Hct 36.8(L) 38.9 - 50.3 % [facility] Plt 177 150 - 400 K/cumm [facility] MPV 9.5 9.1 - 12.3 fL [facility] RBC 3.70(L) 4.30 - 5.80 M/cumm [facility] MCV 99.5(H) 81.3 - 96.4 fL [facility] MCH 32.7 27.1 - 33.3 pg [facility] MCHC 32.9 32.3 - 35.7 g/dL [facility] RDW CV 13.8 11.1 - 14.9 % [facility] RDW SD 48.9(H) 35.7 - 48.1 fL [facility] NRBC abs 0.00 0.00 - 0.01 K/cumm [facility] Blood 11/09/2024 10:1 2 AM CDT 11/09/2024 10:22 AM CDT us Demetrio Klein MD LAB BLOOD ORDERABLES Final Result [facility] [address] [facility] Department [place] [address] * (ABNORMAL) Basic metabolic panel (11/09/2024 10:12 AM CDT) Sodium 139 135 - 145 mmol/L Potassium, pl 4.9 3.3 - 4.9 mmol/L [facility] Chloride 98 97 - 110 mmol/L [facility] CO2 27 22 - 32 mmol/L [facility] Anion gap 14 2 - 15 mmol/L [facility] BUN 54(H) 6 - 25 mg/dL [facility] Creatinine 5.71(H) 0.80 - 1.30 mg/dL [facility] Glucose 267(H) 70 - 199 mg/dL [facility] Comment: Interpretive Data Fasting glucose >/= 126 mg/dl is diagnostic for diabetes. Fasting is defined as no caloric intake for at least 8 hours. Fasting glucose between 100 mg/dl to 125 mg/dl is diagnostic of prediabetes. In a patient with classic symptoms of hyperglycemia or hyperglycemic crisis, a random glucose >/= 200 mg/dl is diagnostic for diabetes. In the absence of unequivocal hyperglycemia, results should be confirmed by repeat testing. The classification and Diagnosis of Diabetes Diabetes Care 2021; 46: S19-S40. Current interpretive data was last revised 2022. Calcium 9.5 8.5 - 10.3 mg/dL [facility] Blood 11/09/2024 10:1 2 AM CDT 11/09/2024 10:22 AM CDT us Demetrio Klein MD LAB BLOOD ORDERABLES Final Result TOMY [address] [facility] Department [place] [address] * US Hemodialysis Access (10/28/2024 10:54 AM CDT) Anatomical Region Laterality Modality Vascular N/A Ultrasound 10/28/2024 9:43 AM CDT Narrative 10/28/2024 1:59 PM CDT Hemodialysis Access Duplex Report Patient Name: KYLER DU E : 1955 (69y 1m) Gender: M Study Date: 10/28/2024 09:43:52 AM Service Vehicle Operator: Elham Del Rosario Provider: DEMETRIO KLEIN Provider: DEMETRIO KLEIN PROCEDURES: Vascular Report: Color Duplex ultrasound with velocity measurements was performed of the arteriovenous fistula in the right upper extremity. Arterial Report: A non-invasive vascular imaging study of the right upper extremity arteries and stent was performed using B-mode ultrasound, color flow, and spectral Doppler. INDICATIONS: Dialysis graft complication. HISTORY: S/P BA RT CEPH ARCH STENT 07/04/24 S/P STENT RT CEPH ARCH 03/27/23 S/P RT BRACHIOCEPH AVF 10/24/21. COMPARISONS: The previous exam was completed on 07/25/24. Compared to the previous study, there are increased velocities at the proximal AVF and proximal stent attachment. AVF: Vessel Velocity Rt Location RT BRACHIOCEPH Rt [place]-B[place] Artery 200.00 cm/sec Rt [place] Artery VF 925.00 mL/min Rt Arterial Anast 450/197 cm/sec Rt Prx Graft 614/323 cm/sec Rt Prx-Mid AVF 674/289 cm/sec Rt Mid AVF 162/78 cm/sec Rt Mid AVF VF 2805.00 mL/min Rt Mid-Dist AVF 34.00 cm/sec Rt Dst AVF 73.00 cm/sec Rt [place] Vein 69 CEPH V cm/sec RIGHT STENT MEASUREMENTS: Vessel Velocity Location RT CEPH ARCH Rt Stent Prx [place] PSV 75.00 cm/sec Rt Stent Prx Attachment PSV 246.00 cm/sec Rt Stent Mid PSV 199/116 cm/sec Rt Stent Dst Attachment PSV 214/121 cm/sec Rt Stent Dst [place] PSV 239.00 cm/sec FINDINGS: Study Quality: The study quality is adequate. Right: Sub v velocity 245cm/sec. Proximal AVF diameter is 1.7 x 2.0cm, 0.55 x 0.6cm and 1.7 x 2.0cm. The velocity is increased at this part of the AVF. Fistula 1: The arteriovenous fistula is located in the right upper arm. Increased velocities at the proximal portion of the fistula and mid portion of the fistula. Stent 1: The stent is located in the cephalic arch. Increased velocities at the proximal attachment and distal squaxin subclavian vein. CONCLUSIONS: 1. Increased velocity in the fistula at the mid portion of the upper arm/forearm. Electronically Signed By: Demetrio Klein MD 10/28/2024 1:58:09 PM CDT Procedure Note Demetrio Klein MD - 10/28/2024 Hemodialysis Access Duplex Report Patient Name: KYLER DU E : 1955 (69y 1m) Gender: M Study Date: 10/28/2024 09:43:52 AM Service Vehicle Operator: Elham Del Rosario Provider: DEMETRIO KLEIN Ref Provider: DEMETRIO KLEIN PROCEDURES: Vascular Report: Color Duplex ultrasound with velocity measurements wasperformed of the arteriovenous fistula in the right upper extremity. Arterial Report: A non-invasive vascular imaging study of the right upperextremity arteries and stent was performed using B-mode ultrasound, color flow, andspectral Doppler. INDICATIONS: Dialysis graft complication. HISTORY: S/P BA RT CEPH ARCH STENT 07/04/24 S/P STENT RT CEPH ARCH 03/27/23 S/P RT BRACHIOCEPH AVF 10/24/21. COMPARISONS: The previous exam was completed on 07/25/24. Compared to the previousstudy, there are increased velocities at the proximal AVF and proximal stent attachment. AVF: Vessel Velocity Rt Location RT BRACHIOCEPH Rt [place] Artery 200.00 cm/sec Rt [place] Artery VF 925.00 mL/min Rt Arterial Anast 450/197 cm/sec Rt Prx Graft 614/323 cm/sec Rt Prx-Mid AVF 674/289 cm/sec Rt Mid AVF 162/78 cm/sec Rt Mid AVF VF 2805.00 mL/min Rt Mid-Dist AVF 34.00 cm/sec Rt Dst AVF 73.00 cm/sec Rt [place] Vein 69 CEPH V cm/sec RIGHT STENT MEASUREMENTS: Vessel Velocity Location RT CEPH ARCH Rt Stent Prx [place] PSV 75.00 cm/sec Rt Stent Prx Attachment PSV 246.00 cm/sec Rt Stent Mid PSV 199/116 cm/sec Rt Stent Dst Attachment PSV 214/121 cm/sec Rt Stent Dst [place] PSV 239.00 cm/sec FINDINGS: Study Quality: The study quality is adequate. Right: Sub v velocity 245cm/sec. Proximal AVF diameter is 1.7 x 2.0cm, 0.55 x 0.6cm and 1.7 x 2.0cm. Thevelocity is increased at this part of the AVF. Fistula 1: The arteriovenous fistula is located in the right upper arm.Increased velocities at the proximal portion of the fistula and mid portion of thefistula. Stent 1: The stent is located in the cephalic arch. Increased velocitiesat the proximal attachment and distal squaxin subclavian vein. CONCLUSIONS: 1. Increased velocity in the fistula at the mid portion of the upperarm/forearm. Electronically Signed By: Demetrio Klein MD 10/28/2024 1:58:09 PM CDT us Demetrio Klein MD [facility] PROCEDURES Final Re sult * DEVICE CHECK - IN OFFICE (10/26/2024 10:37 AM CDT) Anatomical Region Laterality Modality Other Narrative 10/27/2024 3:55 PM CDT Medtronic Dual Pacemaker, multiple generator changes the most recent being in 06/20/2011, chronic leads 1988. Vent lead is off-Programmed AAI. Bill Single Pm. [employer] remote. Supervising MD: Dr Bernard. Office pacemaker evaluation to assess battery function d/t unable to retrieve a complete remote report. Left pectoral incision well healed without signs of infection noted. Battery function 2.56V. ALTHEA reached 09/14/2024. Per manufactures design, this model pacemaker turned off Atrial lead, turned on Ventricular lead, and switched program mode to VVI 65 bpm. I was unable to make any parameter changes. 2011 gen change patient's pacemaker was programmed AAI 50 bpm. His right ventricular lead had high thresholds, and he was not pacing at all in the RV, so it was turned off. 10/30/2023: Office pacemaker testing of Atrial lead, sensing 1.4-2.0 mV, impedance 651 ohms, pacing threshold 0.75V@1.0ms. AP <0.1%. Unable to test atrial lead and minimal testing of v-lead. Presenting rhythm-ARMATURE BANDER. Medications; Plavix, Coreg, Epogen, Insulin, Ozempic. No programming changes made today. See scanned report. Office pacemaker f/u post generator change. [facility] remote f/u post generator change. Karina Munoz RN Marlen Higgins MD [facility] PROCEDU RES Final Result * DEVICE CHECK - REMOTE (10/20/2024 2:41 PM CDT) Anatomical Region Laterality Modality Other Narrative 10/21/2024 11:55 AM CDT [employer] Dual Pacemaker for SSS, multiple generator changes the most recent being in 06/20/2011, chronic leads 1988. Vent lead is off-Bill Single Pm. [facility] remote home monitor. Patient is sent in his [facility] remote report on 10/20/2024. However the report is incomplete most of the data is missing. I contacted [employer] technical service department and I was informed that they are having technical difficulties and many of the reports that are transmitting are incomplete reports. Therefore I have scheduled the patient to come into the office on 10/26/2024 for a pacemaker evaluation and to check his battery status. It is highly suspicious that his pacemaker has reached elective replacement time. This needs to be confirmed. See limited scanned report. Karina Munoz RN us Charlie Bernard MD [facility] Final Result * POCT lipid panel (10/07/2024 10:19 AM CDT) Cholesterol, POC <100 mg/dL HDL, POC 32 mg/dL Triglycerides, POC 76 mg/dL LDL Cholesterol POC 66 mg/dL Chol/HDL Ratio, POC N/A Non-HDL Cholesterol, POC N/A mg/dL Cholesterol Total, POC <100 mg/dL Capillary blood 10/07/2024 1 0:19 AM CDT Charlie Bernard MD POINT OF CARE TEST ORDERA BLES Final Result * (ABNORMAL) Hemoglobin A1c (12/24/2022 3:12 PM CDT) Hgb A1C 7.2(H) 4.0 - 5.6 % TOMY PRIEST Estimated Average Glucose 160 mg/dL TOMY PRIEST Comment: The ADA recommends reporting an estimated Average Glucose (eAG) with all Hemoglobin A1c results using the equation derived from a study of 507 normal and diabetic adults. Minority populations were underrepresented and children were not included. (Diabetes Care 31:0284-4225, 2008). The eAG is not equivalent to a fasting glucose. 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 Expl anation ADVANCE DIRECTIVE 01/01/2023 3:43 PM Power of Nib Assembler-Medical * Full Code (Latest Code Status on File) Date Activated Date Inactivated Comments 07/04/2024 1:24 PM 07/04/2024 6:03 PM * Full Code Date Activated Date Inactivated Comments 03/27/2023 10:39 AM 03/27/2023 3:40 PM * Full Code Date Activated Date Inactivated Comments 12/24/2022 3:45 PM 01/12/2023 10:27 PM * Full Code Date Activated Date Inactivated Comments 08/18/2022 10:52 AM 08/18/2022 4:09 PM Care Teams [employer] Design Engineer Relationship Specialty Start Date End Date Kishore Rosario DO PCP - General Internal Medicine 04/13/17 Shahzad Paiz MD Referring Physician Nephrology 01/31/22 Marlen Higgins MD Consulting Physician Cardiology 01/31/22 Demetrio Klein MD [address] [place] [address] [place] [address] Surgeon Surgery 03/26/22 Dr Reba Diez [place], [place] Endocrinology 01/31/22
--- OUTSIDE RECORDS SUMMARY | 2025-01-12 10:54 | XMS_ITS | Referral Summary ---
Author Organization [facility] [place] [address] [facility] [address] Address [address] [place] [address] Care Team Providers Care Housing Relocation Name Role Phone Kishore Rosario DO Primary Care Provider [phone] Shahzad Paiz MD Unavailable [phone] Marlen Higgins MD Unavailable [phone] Demetrio Klein MD Unavailable [phone] Encounters Date Type Department Care Team Description 12/06/2024 Telephone [facility] Cardiology [address] [facility] [address] [place] [address] Charlie Bernard MD 12/06/2024 11:00 AM CDT Office Visit [facility] [address] [place] [phone] Tyron Romero MD Cardiac arrhythmia, unspecified cardiac arrhythmia type (Primary Dx); Pacemaker; Sinoatrial node dysfunction (HCC) 12/06/2024 10:45 AM CDT Ancillary Procedure [facility] [address] [place] [address] [place] [phone] Cardiac pacemaker in situ (Primary Dx); Sinoatrial node dysfunction (HCC) 12/02/2024 10:38 AM CDT - 12/02/2024 11:59 PM CDT Hospital Encounter [facility] Dialysis Access [facility] at [facility] [address] [facility] [address] [place] [address] ESRD (end stage renal disease) on dialysis (HCC) (Primary Dx); Type 2 diabetes mellitus with hyperglycemia, with long-term current use of insulin (HCC); Essential (primary) hypertension; Mixed diabetic hyperlipidemia associated with type 2 diabetes mellitus (HCC) Discharge Disposition: Discharge to home or self care 12/02/2024 10:39 AM CDT - 12/02/2024 11:59 PM CDT Hospital Encounter [facility] Medical Office Building 2 Vascular [address] [facility] [address] [place] [address] ESRD (end stage renal disease) on dialysis (HCC); Other complication of arteriovenous dialysis fistula, initial encounter Discharge Disposition: Discharge to home or self care 12/01/2024 Orders Only [facility] [address] [facility] [address], [place] [id number] Tyron Romero MD Sinoatrial node dysfunction (HCC) (Primary Dx) 11/30/2024 Telephone [facility] Cardiology [address] [place] [phone] Charlie Bernard MD 11/28/2024 Telephone [facility] Card[facility] [address] [place] [phone] Charlie Bernard MD 11/14/2024 Telephone [facility] Cardiology [address] [place] [address] Charlie Bernard MD 11/09/2024 12:00 PM CDT - 11/09/2024 1:00 PM CDT Surgery [facility] Cardiac Heel Attacher [address] [place] [address] Demetrio Klein MD Dialysis Circuit Angiogram 11/09/2024 10:03 AM CDT - 11/09/2024 1:43 PM CDT Hospital Encounter [facility] Cardiac Heel Attacher [address] [place] [address] Demterio Klein MD ESRD (end stage renal disease) on dialysis (HCC) Discharge Disposition: Discharge to home or self care 11/08/2024 Orders Only [facility] Dialysis Access Center at [address] [place] [address] Demetrio Klein MD 11/03/2024 Telephone [facility] Cardiology [address] [place] [address] [place], [place] [address] [place] [address] Charlie Bernard MD 10/28/2024 9:19 AM CDT - 10/28/2024 11:59 PM CDT Hospital Encounter [facility] Medical Office Building [address] [place] [address] [place] [address] ESRD (end stage renal disease) on dialysis (HCC); Other complication of arteriovenous dialysis fistula, subsequent encounter Discharge Disposition: Discharge to home or self care 10/28/2024 9:18 AM CDT - 10/28/2024 11:59 PM CDT Hospital Encounter [facility] Dialysis Access Center at [address] [place] [address] Essential (primary) hypertension (Primary Dx); Type 2 diabetes mellitus with hyperglycemia, with long-term current use of insulin (HCC); Mixed diabetic hyperlipidemia associated with type 2 diabetes mellitus (HCC); ESRD (end stage renal disease) on dialysis (HCC); Other complication of arteriovenous dialysis fistula, initial encounter Discharge Disposition: Discharge to home or self care 10/26/2024 Telephone [facility] Cardiology [address] [place] [address] [place], [place] [address] [place] [address] Charlie Bernard MD 10/26/2024 11:30 AM CDT Ancillary Procedure [facility] Cardiology [address] [place] [phone] Pacemaker (Primary Dx); SSS (sick sinus syndrome) (HCC) 10/21/2024 Telephone [facility] Cardiology [address] [place] [address] [place], [place] [address] [address] Charlie Bernard MD 10/20/2024 9:00 AM CDT Ancillary Procedure [facility] Cardiology [address] [facility] [place] [address] Pacemaker (Primary Dx); SSS (sick sinus syndrome) ([facility]); History of CVA (cerebrovascular accident) 10/20/2024 Telephone [facility] Cardiology [address] 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 Assessment & Plan (06/17/2024 12:05 PM RESOURCE CENTER TEACHER): Current AV duplex shows an outflow stenosis [...] dialysis. Assessment & Plan (07/14/2023 2:41 PM RESOURCE CENTER TEACHER): Will proceed with right upper extremity AV [...] a right lower extremity angiogram Atherosclerosis of comanche ar teries of right leg with ulceration [...] depression 04/14/2017 COPD (chronic obstructive pulmonary disease) 10/ Anxiety 04/14/2017 03/04/2023 Chest discomfort 12/08/2016 Assessment & Plan (12/08/2016 3:34 PM CDT): Atypical chest discomfort; reassured pt this is unlikely to be a cardiac problem? Pacemaker 12/08/2016 Overview (04/22/2017): Medtronic Dual Pacemaker, multiple generator changes the most recent being in 06/20/2011, chronic leads 1988. Vent lead is off-Bill Single Pm. 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 SHAKEEL to th prox LAD Jul 2016. 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 SHAKEEL to th prox LAD [...] carvedilol Assessment & Plan (06/17/2024 12:04 PM RESOURCE CENTER TEACHER): Continue amlodipine and carvedilol Assessment & Plan (02/29/2024 11:42 AM CDT): Impression: Chronic and stable. Plan: Continue losartan carvedilol and isosorbide Assessment & Plan (04/13/2023 12:05 PM CDT): Impression: Chronic and stable. Plan: Continue losartan, carvedilol, isosorbide Assessment & Plan (03/16/2023 11:11 AM CDT): Continue losartan, carvedilol, isosorbide Assessment & Plan (09/04/2022 12:49 PM CDT): Carvedilol Assessment & Plan (07/28/2022 2:57 PM RESOURCE CENTER TEACHER): Carvedilol Assessment & Plan (03/24/2022 10:52 AM [...] insulin Assessment & Plan (06/17/2024 12:04 PM RESOURCE CENTER TEACHER): Continue insulin Assessment & Plan (02/29/2024 11:42 [...] Right AKA healed. Can continue working with Facilities Maintenance Assistant Prosthetics. Follow up p.r.n.. Hyperphosphatemia History of sick sinus syndrome Resolved Problems Problem Noted Date Diagnosed Date Resolved Date Diabetic ulcer of toe of rig ht foot associated with type 1 diabetes mellitus, with necrosis of muscle 12/25/2022 08/26/2023 Ulcer of right foot, with necrosis of muscle 08/26/2023 Assessment & Plan (12/24/2022 9:52 AM [...] amputation. Osteomyelitis of right foot, unspecified type 12/25/1908/27/2023 ESRD on hemodialysis 01/31/2022 024 Overview (01/31/2022): Added automatically from request for surgery [id number] Assessment & Plan (03/16/2023 11:12 AM CDT): [...] scan Assessment & Plan (07/28/2022 2:57 PM RESOURCE CENTER TEACHER): Venous outflow stenosis seen on most recent [...] (10/18/2021): Added automatically from request for surgery [id number] Assessment & Plan (11/06/2021 12:29 PM CDT): [...] Lipitor Assessment & Plan (07/28/2022 2:57 PM RESOURCE CENTER TEACHER): Lipitor Assessment & Plan (04/14/2017 9:30 PM CDT): January 2017: LDL 91, taking atorvastatin 80 mg daily. Good but not great. Assessment & Plan (12/08/2016 3:46 PM CDT): Takes atorvastatin. History of cardiac pacemaker in situ 10/29/2013 04/14/2017 Overview (2016): STATUS CARDIAC PACEMAKER Type 2 diabetes mellitus wit h diabetic neuropathy, with long-term current use of insulin 04/13/2023 Immunizations Immunization Administration Dates Next Due Influenza, Quadrivalent, Marizol l Culture-based MDCK, Antibiotic Free, Intramuscular 05/27/2018 Influenza, Quadrivalent, Hig h Dose, Preservative Free, Intrr 05/02/2020 Influenza, Quadrivalent, Spl it, Preservative Free, Intramuscular 03/22/2021 Influenza, Trivalent, High D ose, Split, Preservative Free, Intramuscular 05/24/2019 Influenza, Trivalent, IM (MDV) 1,05/24/2019,06/04/2015,04/01 Influenza, Trivalent, Preser vative Free, Intramuscular 07/24/2017 Pneumococcal Conjugate 7-Valent 08/09/2016 Social History Tobacco Use Types Packs/Day Years [...] How often do you attend chur or evangelical services? More than 4 times per year 12/25/2022 Do you belong to any clubs o r organizations such as religion groups, unions, fraternal or athletic groups, or [...] place to sleep or slept in a mcfp (including now)? No 12/25/2022 Personal Safety Answer Date Recorded Have you ever been in or are you currently in a harmful physical or emotional relationship or is someone making you feel afraid or unsafe? Denies 11/09/2024 Sex and Gender Information Value Date Recorded Sex Assigned at Not on file Legal Sex Male 2:10 AM RESOURCE CENTER TEACHER Gender Identity Not on file Sexual Orientation [...] 12/06/2024 10:14 AM CDT Plan of Treatment Not on file Medical Devices Implanted Type Area Health Technical Writer Device Identifier Shelf Expiration Date Model / Serial / Lot Intra Ocular Lens Lens Bilateral : Eye Pacemaker-2011 Medtronic Implanted:11/2011 (Quantity not on file) Pacemaker Chest Medtronic SSS ADAPTA [id number] / [id number] / CHRONIC LEADS 1988 Description:Ventricular lead is off Cardiac Stent -2016 Implanted:Qty: 1 Stent Heart Fountain Peripheral Vascular Covera 6mm 8fr 60mm 80cm Cover Helical Strut Thumbwheel [id number] - [id number] Implanted:Qty: 1 on 03/27/2023 by Reece Klein MD at [facility] Peripheral Vascular 05/09/2024 [id number] / / [id number] Fountain Peripheral Vascular Covera 8mm 8fr 40mm 80cm Cover Helical Strut Thumbwheel [id number] - [id number] Implanted:Qty: 1 on 11/09/2024 by Demetrio Klein MD at [facility] Peripheral Vascular 10/29/2025 [id number] / / [id number] Procedures Procedure Name Priority Date/Time Associated Diagnosis Comments ECG 12-LEAD Routine 12/06/2024 10:15 AM CDT Cardiac arrhythmia, unspecified cardiac arrhythmia type DEVICE CHECK - IN OFFICE Routine 12/06/2024 9:49 AM CDT Sinoatrial node dysfunction (HCC) US HEMODIALYSIS ACCESS Schedule Routine, Read Routine (OP Routine) 12/02/2024 11:30 AM CDT ESRD (end stage renal disease) on dialysis (HCC) Other complication of arteriovenous dialysis fistula, initial encounter DIALYSIS CIRCUIT/FISTULA STENT 40369 Routine 11/09/2024 12:38 PM CDT ESRD (end stage renal disease) on dialysis (HCC) INTRO CATH DIALYSIS CIRCUIT DX ANGRPH FLUOR 31687 Routine 11/09/2024 12:38 PM CDT ESRD (end stage renal disease) on dialysis (HCC) POCT GLUCOSE DEVICE Routine 11/09/2024 10:19 AM CDT EGFR STAT 11/09/2024 10:12 AM CDT APTT STAT 11/09/2024 10:12 AM CDT PROTIME-INR STAT 11/09/2024 10:12 AM CDT CBC WITHOUT DIFFERENTIAL STAT 11/09/2024 10:12 AM CDT BASIC METABOLIC PANEL STAT 11/09/2024 10:12 AM CDT HEMODIALYSIS ACCESS Schedule Routine, Read Routine (OP [...] 10:19 AM CDT 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 NORMAL DEVICE FUNCTION PROGRAMMED MEDICATIONS: Anti-coagulant(s): Plavix 75 mg daily Anti-arrhythmic(s): Coreg 25 mg twice daily, Norvasc 5 mg daily PLAN: 1) Medtronic Pacemaker evaluation 2) may scheduled for replacement. 3) Programming appropriate for device measurements Micah Melendez, RN Tyron Romero MD [facility] CARDIAC SERVICES PROC EDURES Final Result * US Hemodialysis Access (12/02/2024 11:30 AM CDT) Anatomical Region Laterality Modality Vascular N/A Ultrasound 12/02/2024 11:0 1 AM CDT Narrative 12/03/2024 12:15 PM CDT Hemodialysis Access Duplex Report Patient Name: KYLER DU E : 1955 (69y 2m) Gender: M Study Date: 12/02/2024 11:01:28 AM Furnace Feeder: Megan Dickson Provider: DEMETRIO KLEIN Ref Provider: DEMETRIO KLEIN [...] Vessel Velocity Rt Location Brachioceph AVF Rt Tangirnaq Artery 250.00 cm/sec Rt Tangirnaq Artery VF 512.00 mL/min Rt Arterial Anast 771.00 cm/sec Rt Prx Graft 141.00 cm/sec Rt Mid AVF 87.00 cm/sec Rt Mid AVF VF 645.00 mL/min Rt Dst AVF 101.00 cm/sec Rt Tangirnaq Vein 102 Cephalic v cm/sec RIGHT STENT MEASUREMENTS: Vessel Velocity Location AVF Rt Stent Prx PSV 144.00 cm/sec Rt Stent Mid PSV 121.00 cm/sec Rt Stent Dst PSV 102.00 cm/sec Location 2 Cephalic Arch Rt Stent 2 Prx PSV 210.00 cm/sec Rt Stent 2 Mid PSV 178.00 cm/sec Rt Stent 2 Dst PSV 223.00 cm/sec Rt Stent 2 Dst Tangirnaq PSV 175 Subclavian v cm/sec FINDINGS: Study [...] arm/forearm. Electronically Signed By: Demetrio Klein MD 12/03/2024 11:47:11 AM CDT Procedure Note Demetrio Klein MD - 12/03/2024 Hemodialysis Access Duplex Report Patient Name: KYLER DU E : 1955 (69y 2m) Gender: M Study Date: 12/02/2024 11:01:28 AM Furnace Feeder: Megan Dickson Provider: DEMETRIO KLEIN Provider: DEMETRIO [...] Vessel Velocity Rt Location Brachioceph AVF Rt Tangirnaq Artery 250.00 cm/sec Rt Tangirnaq Artery VF 512.00 mL/min Rt Arterial Anast 771.00 cm/sec Rt Prx Graft 141.00 cm/sec Rt Mid AVF 87.00 cm/sec Rt Mid AVF VF 645.00 mL/min Rt Dst AVF 101.00 cm/sec Rt Tangirnaq Vein 102 Cephalic v cm/sec RIGHT STENT MEASUREMENTS: Vessel Velocity Location AVF Rt Stent Prx PSV 144.00 cm/sec Rt Stent Mid PSV 121.00 cm/sec Rt Stent Dst PSV 102.00 cm/sec Location 2 Cephalic Arch Rt Stent 2 Prx PSV 210.00 cm/sec Rt Stent 2 Mid PSV 178.00 cm/sec Rt Stent 2 Dst PSV 223.00 cm/sec Rt Stent 2 Dst Tangirnaq PSV 175 Subclavian v cm/sec FINDINGS: Study [...] Demetrio Klein MD 12/03/2024 11:47:11 AM CDT Demetrio Klein MD IMG US PROCEDURES Final Re sult * INTRO CATH DIALYSIS CIRCUIT DX ANGRPH FLUOR 01332, DIALYSIS CIRCUIT/FISTULA STENT 41502 (2:38 PM CDT) Anatomical Region Laterality Modality X-Ray Angiograph y Narrative 11/09/2024 12:50 PM CDT Please see OpNote for result. Demetrio Klein MD CV CARDIAC CATH PROCEDURES Final Result * (ABNORMAL) POCT glucose (11/09/2024 10:19 AM CDT) Glucose, POC 252(H) 70 - 199 mg/dL Blood 11/09/2024 10:1 9 AM CDT 11/09/2024 10:19 AM CDT Demetrio Klein MD LAB POCT ORDERABLES - LUCIO CE Final Result Performing Organization Address [facility] Co de Phone Number TOMY [address] [place] [address] * (ABNORMAL) eGFR (11/09/2024 10:12 AM CDT) eGFR 10(L) >=60 mL/min/1. 73 m2 Comment: [...] BLOOD ORDERABLES Final Result Performing Organization Address [facility]/ZIP Co de Phone Number LEONARD[address] [place] [address] * aPTT (11/09/2024 10:12 AM CDT) Pathologist [facility] aPTT 30 22 - 37 sec Comment: Interpretive data aPTT test has not been evaluated for monitoring heparin therapy. The anti-Xa is the preferred test. Current interpretive data was last revised on 2019. Blood 11/09/2024 10:1 2 AM CDT 11/09/2024 10:22 AM CDT Demetrio Klein MD LAB BLOOD ORDERABLES Final Result Performing Organization Address [facility] de Phone Number [address] [place] [address] * Protime-INR (11/09/2024 10:12 AM CDT) Pathologist [facility] PT 14.2 12.0 - 14.6 sec INR 1.1 0.9 - 1.2 [facility] Comment: Ref Range High Interpretive data Oral [...] BLOOD ORDERABLES Final Result Performing Organization Address [facility] de Phone Number [place] [id number] [facility] [place] [address] * (ABNORMAL) CBC without differential (11/09/2024 10:12 AM CDT) Pathologist [facility] WBC 6.98 3.80 - 9.90 K/cumm Hgb 12.1(L) 13.0 - 17.5 g/dL [facility] Hct 36.8(L) 38.9 - 50.3 % [facility] Plt 177 150 - 400 K/cumm [facility] MPV 9.5 9.1 - 12.3 fL [facility] RBC 3.70(L) 4.30 - 5.80 M/cumm [facility] MCV 99.5(H) 81.3 - 96.4 fL [facility] MCH 32.7 27.1 - 33.3 pg [facility] MCHC 32.9 32.3 - 35.7 g/dL [facility] RDW CV 13.8 11.1 - 14.9 % [facility] RDW SD 48.9(H) 35.7 - 48.1 fL [facility] NRBC abs 0.00 0.00 - 0.01 K/cumm [facility] Blood 11/09/2024 10:1 2 AM CDT 11/09/2024 10:22 AM CDT us Demetrio Klein MD LAB BLOOD ORDERABLES Final Result Performing Organization Address City/State/[facility] Co de Phone Number [facility] [address] [facility] Department [place] [address] * (ABNORMAL) Basic metabolic panel (11/09/2024 10:12 AM CDT) Sodium 139 135 - 145 mmol/L Potassium, pl 4.9 3.3 - 4.9 mmol/L [facility] Chloride 98 97 - 110 mmol/L [facility] CO2 27 22 - 32 mmol/L [facility] Anion gap 14 2 - 15 mmol/L [facility] BUN 54(H) 6 - 25 mg/dL [facility] Creatinine 5.71(H) 0.80 - 1.30 mg/dL [facility] Glucose 267(H) 70 - 199 mg/dL [facility] Comment: Interpretive Data Fasting glucose >/= 126 [...] classification and Diagnosis of Diabetes Diabetes Care 202; 46: S19-S40. Current interpretive data was last revised 2022. Calcium 9.5 8.5 - 10.3 mg/dL TOMY PRIEST Blood 11/09/2024 10:1 2 AM CDT 11/09/2024 10:22 AM CDT us Demetrio Klein MD LAB BLOOD ORDERABLES Final Result TOMY [address] [facility] Department [place] [address] * US Hemodialysis Access (10/28/2024 10:54 AM CDT) Anatomical Region Laterality Modality Vascular N/A Ultrasound 10/28/2024 9:43 AM CDT Narrative 10/28/2024 1:59 PM CDT Hemodialysis Access Duplex Report Patient Name: KYLER DU E : 1955 (69y 1m) Gender: M Study Date: 10/28/2024 09:43:52 AM Furnace Feeder: Elham Del Rosario Provider: DEMETRIO KLEIN Provider: [...] Vessel Velocity Rt Location RT BRACHIOCEPH Rt Tangirnaq Artery 200.00 cm/sec Rt Tangirnaq Artery VF 925.00 mL/min Rt Arterial Anast 450/197 cm/sec Rt Prx Graft 614/323 cm/sec Rt Prx-Mid AVF 674/289 cm/sec Rt Mid AVF 162/78 cm/sec Rt Mid AVF VF 2805.00 mL/min Rt Mid-Dist AVF 34.00 cm/sec Rt Dst AVF 73.00 cm/sec Rt Tangirnaq Vein 69 CEPH V cm/sec RIGHT STENT MEASUREMENTS: Vessel Velocity Location RT CEPH ARCH Rt Stent Prx Tangirnaq PSV 75.00 cm/sec Rt Stent Prx Attachment PSV 246.00 cm/sec Rt Stent Mid PSV 199/116 cm/sec Rt Stent Dst Attachment PSV 214/121 cm/sec Rt Stent Dst Tangirnaq PSV 239.00 cm/sec FINDINGS: Study Quality: The [...] velocities at the proximal attachment and distal comanche subclavian vein. CONCLUSIONS: 1. Increased velocity in the fistula at the mid portion of the upper arm/forearm. Electronically Signed By: Demetrio Klien MD 10/28/2024 1:58:09 PM CDT Procedure Note Demetrio Klein MD - 05/16/2025 Hemodialysis Access Duplex Report Patient Name: KYLER DU E : 1955 (69y 1m) Gender: M Study Date: 10/28/2024 09:43:52 AM Furnace Feeder: Elham Del Rosario Provider: DEMETRIO KLEIN Ref [...] Vessel Velocity Rt Location RT BRACHIOCEPH Rt Tangirnaq Artery 200.00 cm/sec Rt Tangirnaq Artery VF 925.00 mL/min Rt Arterial Anast 450/197 cm/sec Rt Prx Graft 614/323 cm/sec Rt Prx-Mid AVF 674/289 cm/sec Rt Mid AVF 162/78 cm/sec Rt Mid AVF VF 2805.00 mL/min Rt Mid-Dist AVF 34.00 cm/sec Rt Dst AVF 73.00 cm/sec Rt Tangirnaq Vein 69 CEPH V cm/sec RIGHT STENT MEASUREMENTS: Vessel Velocity Location RT CEPH ARCH Rt Stent Prx Tangirnaq PSV 75.00 cm/sec Rt Stent Prx Attachment PSV 246.00 cm/sec Rt Stent Mid PSV 199/116 cm/sec Rt Stent Dst Attachment PSV 214/121 cm/sec Rt Stent Dst Tangirnaq PSV 239.00 cm/sec FINDINGS: Study Quality: The [...] Increased velocitiesat the proximal attachment and distal comanche subclavian vein. CONCLUSIONS: 1. Increased velocity in the fistula at the mid portion of the upperarm/forearm. Electronically Signed By: Demetrio Klein MD 10/28/2024 1:58:09 PM CDT Demetrio Klein MD [facility] [place] PROCEDURES Final Re sult * DEVICE CHECK [...] lead and minimal testing of v-lead. 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 Medications; Plavix, Coreg, Epogen, Insulin, Ozempic. No [...] of the data is missing. I contacted [employer] technical service department and I was informed [...] See limited scanned report. Karina Munoz RN Charlie Bernard MD CV CARDIAC SERVICES [facility] Final Result * POCT lipid [...] and children were not included. (Diabetes Care 31:[id number], 2008). The eAG is not equivalent to a fasting glucose. Blood 12/24/2022 3:12 PM CDT 12/24/2022 3:26 PM CDT us Kaley Wray NP LAB BLOOD ORDERABLES Final Re sult TOMY PRIEST [address] [facility] Department [place] [address] from Last 3 Months or Most Recently Relevant to Health Maintenance Insurance AET MEDICARE AETNA MEDICARE AETNA MEDICARE Advance Directives For more information, please contact: [phone] Documents on File Type Date Recorded Patient Pet Care Assistant Expl anation ADVANCE DIRECTIVE 01/01/2023 3:43 PM Power of Grader Marker-Medical * Full Code (Latest Code Status on File) Date Activated Date Inactivated Comments 07/04/2024 1:24 PM 07/04/2024 6:03 PM * Full Code Date Activated Date Inactivated Comments 03/27/2023 10:39 AM 03/27/2023 3:40 PM * Full Code Date Activated Date Inactivated Comments 12/24/2022 3:45 PM 01/12/2023 10:27 PM * Full Code Date Activated Date Inactivated Comments 08/18/2022 10:52 AM 08/18/2022 4:09 PM Care Teams Housing Relocation Relationship Specialty Start Date End Date Kishore Rosario DO PCP - General Internal Medicine 04/13/17 Shahzad Paiz MD Referring Physician Nephrology 01/31/22 Marlen Higgins MD Consulting Physician Cardiology 01/31/22 Demetrio Klein MD [address] [facility] [place] [address] [place] [address] Surgeon Surgery 03/26/22 Dr Reba Diez [place], [place] Endocrinology 01/31/22
--- OUTSIDE RECORDS SUMMARY | 2025-01-12 10:54 | XMS_ITS | Encounter Summary ---
Author Organization [facility] Healthcare Address [address] [place] [address] Care Team Providers Care Plywood Patcher Name Role Phone Kishore Rosario DO Primary Care Provider + [phone] Shahzad Paiz MD Unavailable [phone] Marlen Higgins MD Unavailable [phone] Demetrio Klein MD Unavailable [phone] Encounter Details Date Type Department Care Team (Late st Contact Info) Description 03/18/2023 Telephone [facility] [address] [facility] [address] [place] [address] Reece Klein MD [address] [place] [address] [address] [place] [address] Social History Tobacco Use Types Packs/Day Years [...] often do you attend chur ch or worship services? More than 4 times per year 12/25/2022 Do you belong to any clubs o r organizations such as anabaptist groups, unions, fraternal or athletic groups, or [...] place to sleep or slept in a assisted (including now)? 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 Gender Identity Not on file Sexual Orientation Not on file documented as of this encounter Plan of Treatment Not on file documented as of this encounter Visit Diagnoses Not on filedocumented in this encounter Care Teams Plywood Patcher Relationship Specialty Start Date End Date Kishore Rosario DO PCP - General Internal Medicine 04/13/17 Shahzad Paiz MD Referring Physician Nephrology 01/31/22 Marlen Higgins MD Consulting Physician Cardiology 01/31/22 Demetrio Klein MD [address] [facility] [place] [address] [place] [address] Surgeon Surgery 03/26/22 Dr Reba Diez [place], [place] Endocrinology 01/31/22 documented as of this encounter
--- OUTSIDE RECORDS SUMMARY | 2025-01-12 10:54 | XMS_ITS | Clinical Summary ---
Author Organization [facility] Address [address] [place] [address] Care Team Providers Care Fitness Coach Name Role Phone Kishore Rosario Primary Care Provider Allergies Active Allergy Reactions Criticality Noted Date Comments Iodinated Contrast Media Hives High 10/21/2021 Iodine And Iodide Containing Products Hives High 12/30/2019 injectable Ioversol Other (See Comments) Low 01/19/2019 Pt unaware Lisinopril Other (See Comments) Low 04/15/2021 Other reaction(s): Other (See Comments) cough cough cough Other reaction(s): Other (See Comments) cough Medications ezetimibe (ZETIA) 10 mg tablet Take 1 Tablet (10 mg) by mouth daily. 30 Tablet 2 3:52 PM CDT 11/08/19 22 Active tamsulosin (FLOMAX) 0.4 mg capsule Take 1 Capsule (0.4 mg) by mouth daily. 30 Capsule 2 3:52 PM CDT 11/08/19 22 Active flash glucose scanning reader (FreeStyle Lizeth 2 [place]) [facility] [place] as directed to test blood sugars. 1 Each 11/21/19 22 Active flash glucose sensor (FreeStyle Lizeth 2 Sensor) Kit Change sensor every 14 days. 6 Kit 1 11/21/19 22 Active pantoprazole (PROTONIX) 40 mg Tablet, Delayed Release (E.C.) Take 1 Tablet (40 mg) by mouth daily in the morning. 42 Tablet 2 3:57 PM CDT 11/28/19 22 Active epoetin cindi (Epogen) 10,000 unit/mL Solution Inject 1 mL (10,000 units) subcutaneously every thursday, , and thursday as needed for anemia. 10 mL 12/08/19 Active allopurinoL (ZYLOPRIM) 100 mg tablet Take 100 mg by mouth 2 times daily. Active aspirin (ECOTRIN EC) 81 mg Tablet, Delayed Release (E.C.) Take 81 mg by mouth daily. Active peg 3350-electrolyte s (COLYTE) 240-22.72-6.72 -5.84 gram solution Take 240 mL by mouth every 10 minutes as directed. Follow directions given to you by prescriber. 4000 mL 2 2:16 PM CDT 12/26/19 Active albuterol (PROVENTIL,CORRIE YURI) 2.5 mg /3 mL (0.083 %) Solution for Nebulization 10/16/19 Active atorvastatin (LIPITOR) 80 mg tablet Take 80 mg by mouth daily. 11/16/19 Active calcium acetate,phosphat bind, (PHOSLO) 667 mg Capsule 01/10/20 Active cholecalciferol, vitamin D3, 5,000 unit Take 5,000 Units by mouth 2 times daily. Active clopidogreL (PLAVIX) 75 mg Tablet 12/27/19 Active dulaglutide (TRULICITY) 1.5 mg/0.5 mL injection Inject 0.5 mL by subcutaneous injection. Active insulin aspart U-100 (NovoLOG Flexpen U-100 Insulin) 100 unit/mL pen syringe Ss as needed, do not take morning of surgery 10/24/2021 03/04/20 Active Tresiba FlexTouch U-200 200 unit/mL (3 mL) pen syringe 11/01/19 Active metOLazone (ZAROXOLYN) 2.5 mg tablet Take 2.5 mg by mouth. Active omega 5-ekz-qaw-fish oil 100-160-1,000 mg Capsule Take 1 Capsule by mouth 2 times daily. Active prednisoLONE acetate (PRED FORTE) 1 % suspension SHAKE LIQUID AND INSTILL 1 DROP IN BOTH EYES TWICE DAILY DIRECTED 10/24/19 Active predniSONE (DELTASONE) 50 mg tablet TAKE ONE TABLET 13 HOURS PRIOR TO PROCEDURE; THEN TAKE ONE TABLET 7 HOURS PRIOR TO PROCEDURE; THEN TAKE LAST TABLET AND 50MG OF BENADRYL (DIPHENHYDRAMINE) 1 HOUR PRIOR TO PROCEDURE 3 Tablet 2 2:52 PM CDT 02/01/20 22 Active insulin aspart U-100 (NovoLOG Flexpen U-100 Insulin) 100 unit/mL pen syringe Use via sliding scale pre-meal: Blood sugar <70=0 units, 71-120=10 units, 121-160=12 units, >161= 14 units. Max dose per day: 32 units. 45 mL 3 03/05/20 22 Active dulaglutide (Trulicity) 3 mg/0.5 mL injection Inject 0.5 mL (3 mg) by subcutaneous injection every 7 days. 6 mL 2 03/05/20 22 Active insulin degludec (Tresiba FlexTouch U-200) 200 unit/mL pen syringe Inject 60 Units by subcutaneous injection daily. 27 mL 2 03/05/20 22 Active calcium acetate,phosphat bind, (PHOSLO) 667 mg Capsule TAKE 2 CAPSULES BY MOUTH THREE TIMES DAILY WITH MEALS AND 2 CAPSULES WITH SNACK. 240 Capsule 11 03/18/20 22 Active allopurinoL (ZYLOPRIM) 100 mg tablet Take 1 Tablet (100 mg) by mouth 2 times daily. 60 Tablet 2 2 1:05 PM CDT 03/27/20 22 Active carvediloL (COREG) 12.5 mg tablet Take 1 Tablet (12.5 mg) by mouth every morning and with dinner. 60 Tablet 1 2 4:27 PM PROTEIN SPECIALIST 04/17/20 22 Active irbesartan (AVAPRO) 150 mg tablet Take 1 Tablet (150 mg) by mouth daily in the morning. 90 Tablet 1 3 2:40 PM PROTEIN SPECIALIST 05/20/20 22 Active neomycin-polymyx in-dexAMETHasone (Maxitrol) 3.5 mg/g-10,000 unit/g-0.1 % ointment APPLY 1/4 INCH RIBBON INTO BOTH EYES AT BEDTIME 3.5 Gram 3 3 10:11 AM PROTEIN SPECIALIST 07/28/19 23 Active neomycin-polymyx in-dexAMETHasone (Maxitrol) 3.5mg/mL-10,000 unit/mL-0.1 % suspension ADMINISTER 1 DROP IN BOTH EYES TWICE A DAY 5 mL 3 3 10:11 AM PROTEIN SPECIALIST 07/28/19 23 Active diphenhydrAMINE (BENADRYL) 25 mg capsule Take 2 capsules by mouth 1 hour prior to procedure as directed. 2 Capsule 3 10:08 AM PROTEIN SPECIALIST 08/12/19 23 Active predniSONE (DELTASONE) 50 mg tablet Take 1 tablet by mouth 13 hours prior, 7 hours prior, and 1 hour prior to procedure. 3 Tablet 3 10:08 AM PROTEIN SPECIALIST 08/12/19 23 Active furosemide (LASIX) 80 mg tablet Take 1 Tablet (80 mg) by mouth daily. 90 Tablet 11 3 11:24 AM CDT 08/20/19 23 Active carvediloL (COREG) 12.5 mg tablet Take 1 Tablet (12.5 mg) by mouth 2 times daily. 180 Tablet 5 3 11:31 AM CDT 09/16/19 23 Active glucose 4 gram Tablet, Chewable Chew/take 16 g ( 4 tablets ) orally every 15 minutes as needed for hypoglycemia; until symptoms of low blood sugar are controlled 60 Tablet 10/07/19 23 Active ondansetron (ZOFRAN ODT) 4 mg Tablet, Rapid Dissolve DISSOLVE 1 TABLET ON THE TONGUE EVERY 8 HOURS NEEDED FOR NAUSEA AND VOMITING 14 Tablet 3 2:22 PM CDT 10/24/19 23 Active amoxicillin-clav ulanate (Augmentin) 500-125 mg tablet Take 1 Tablet by mouth every 12 hours. 5 Tablet 3 5:08 PM CDT 11/21/19 23 Active doxycycline hyclate (VIBRAMYCIN) 100 mg tablet Take 1 Tablet (100 mg) by mouth every 12 hours. 5 Tablet 3 5:08 PM CDT 11/21/19 23 Active nystatin (NYSTOP) 100,000 unit/gram powder APPLY TOPICALLY TWICE DAILY DIRECTED 30 Gram 3 3:15 PM CDT 11/25/19 23 Active clindamycin phosphate (CLEOCIN T) 1 % Gel APPLY TO THE AFFECTED AREA(S) TOPICALLY ONCE DAILY FOR 10 DAYS. 30 Gram 3 2:23 PM CDT 12/14/19 23 Active Lidocaine (Blue-Emu Lidocaine Patch) 4 % Adhesive Patch, Medicated APPLY ONE PATCH TO THE SKIN DAILY DIRECTED. DO NOT LEAVE PATCH ON FOR MORE THAN 12 HOURS AT A TIME. 30 Patch 02/01/20 23 Active carvediloL (COREG) 12.5 mg tablet Take 1 Tablet (12.5 mg) by mouth 2 times daily with meals. 60 Tablet 02/01/20 Active diclofenac sodium (Arthritis Pain, diclofenac,) 1 % gel Apply 2 Grams to affected area 3 times daily. 100 Gram 3 12:47 PM CDT 02/01/20 Active sennosides-docus ate sodium (Stimulant Laxative Plus) 8.6-50 mg tablet Take 2 Tablets by mouth 2 times daily after breakfast and lunch. 120 Tablet 3 12:47 PM CDT 02/01/20 Active furosemide (LASIX) 80 mg tablet TAKE ONE TABLET BY MOUTH ON NON-HEMODIALYSIS DAYS (THURSDAY, THURSDAY, THURSDAY, THURSDAY) DIRECTED. 18 Tablet 3 12:47 PM CDT 02/01/20 Active losartan (COZAAR) 25 mg tablet Take 1 Tablet (25 mg) by mouth daily. Take after dialysis on dialysis days. 30 Tablet 3 12:47 PM CDT 02/01/20 Active polyethylene glycol 3350 (Miralax) 17 gram/dose Powder Dissolve 1 Scoop (17 Grams) in water or juice and drink by mouth once daily. 238 Gram 02/01/20 Active oxyCODONE (ROXICODONE) 5 mg tablet Take 1 Tablet (5 mg) by mouth every 6 hours as needed for severe pain (scale 7-10) 28 Tablet 02/01/20 Active sevelamer carbonate (RENVELA) 800 mg Tablet Take 1 Tablet (800 mg) by mouth 3 times daily with meals. 270 Tablet 3 3 2:06 PM PROTEIN SPECIALIST 02/26/20 Active predniSONE (DELTASONE) 50 mg tablet Take 1 tablet 13 hours prior to procedure, 7 hours prior to procedure, and 1 hour prior to procedure on 03/27/23. 3 Tablet 3 11:32 AM CDT 03/24/20 Active isosorbide dinitrate (ISORDIL) 5 mg tablet Take 1 Tablet (5 mg) by mouth 3 times daily. 90 Tablet 3 3 10:50 AM CDT 04/13/20 Active vit B cmplx 3-FA-Vit C-Biotin (Leonarda-Marielos Rx) 1-60-300 mg-mg-mcg Tablet Take 1 Tablet by mouth daily. 90 Tablet 3 4 10:11 AM PROTEIN SPECIALIST 05/12/20 23 Active atorvastatin (LIPITOR) 80 mg tablet Take 1 Tablet (80 mg) by mouth daily at bedtime. 30 Tablet 06/05/20 23 Active carvediloL (COREG) 12.5 mg tablet Take 2 Tablets (25 mg) by mouth 2 times daily. 60 Tablet 3 2:06 PM PROTEIN SPECIALIST 06/05/20 23 Active diphenhydrAMINE (BENADRYL) 50 mg capsule Take 1 capsule by mouth 1 hour prior to procedure 1 Capsule 07/14/19 24 Active predniSONE (DELTASONE) 50 mg tablet Take 1 tablet by mouth 13 hours prior, 7 hours prior and 1 hour prior to procedure. 3 Tablet 4 2:53 PM PROTEIN SPECIALIST 07/14/19 24 Active gabapentin (NEURONTIN) 100 mg capsule Take 1 Capsule (100 mg) by mouth daily at bedtime. 90 Capsule 3 4 12:39 PM CDT 08/29/19 24 Active ondansetron (ZOFRAN) 4 mg Tablet Take one tablet by mouth prior to dialysis 30 Tablet 5 4 8:01 AM CDT 08/29/19 24 Active carvediloL (COREG) 12.5 mg tablet Take 2 Tablets (25 mg) by mouth 2 times daily. 60 Tablet 09/14/19 24 Active gabapentin (NEURONTIN) 100 mg capsule Take 1 Capsule (100 mg) by mouth daily at bedtime. 90 Capsule 3 5 12:51 PM PROTEIN SPECIALIST 09/14/19 24 Active furosemide (LASIX) 80 mg tablet Take 1 Tablet (80 mg) by mouth daily. 90 Tablet 3 5 1:18 PM PROTEIN SPECIALIST 12/10/19 24 Active ondansetron (ZOFRAN) 4 mg Tablet Take 1 tablet by mouth prior to dialysis as directed. 30 Tablet 4 5 12:51 PM PROTEIN SPECIALIST 01/30/20 24 Active prednisoLONE acetate (Pred Forte) 1 % suspension INSTILL 1 DROP IN BOTH EYES TWICE A DAY FOR 2 WEEKS 10 mL 3 4 12:58 PM PROTEIN SPECIALIST 03/28/20 24 Active amLODIPine (NORVASC) 5 mg tablet Take 1 Tablet (5 mg) by mouth daily. 90 Tablet 1 5 11:28 AM CDT 05/20/20 24 Active atorvastatin (LIPITOR) 80 mg tablet Take one tablet (80 mg) orally bedtime 90 Tablet 1 5 12:33 PM CDT 06/17/19 25 Active predniSONE (DELTASONE) 50 mg tablet Take one tablet 13 hours prior, 7 hours prior and 1 hour prior to procedure. 3 Tablet 5 2:10 PM PROTEIN SPECIALIST 06/17/19 25 Active prednisoLONE acetate (Pred Forte) 1 % suspension Administer 1 drop in both eyes twice a day 15 mL 3 5 12:51 PM PROTEIN SPECIALIST 08/05/19 25 Active ezetimibe (ZETIA) 10 mg tablet Take 1 Tablet (10 mg) by mouth daily. 90 Tablet 1 5 2:01 PM CDT 08/23/19 25 Active prednisoLONE acetate (Pred Forte) 1 % suspension Administer 1 Drop in both eyes 2 times daily. 15 mL 3 5 2:26 PM CDT 09/27/19 25 Active diphenhydrAMINE (Banophen) 25 mg tablet Take 2 Tablets (50 mg) by mouth 1 hour prior to procedure. 2 Tablet 5 11:51 AM CDT 11/09/19 25 Active predniSONE (DELTASONE) 50 mg tablet Take 1 Tablet (50 mg) by mouth 13 hours prior, 7 hours prior, and 1 hour prior to procedure. 3 Tablet 5 11:51 AM CDT 11/09/19 25 Active amLODIPine (NORVASC) 5 mg tablet Take 1 Tablet (5 mg) by mouth daily. 90 Tablet 1 5 8:16 AM CDT 11/29/19 25 Active atorvastatin (LIPITOR) 80 mg tablet Take 1 Tablet (80 mg) by mouth daily at bedtime. 90 Tablet 1 5 1:10 PM CDT 12/20/19 25 Active ondansetron (ZOFRAN) 4 mg Tablet Take 1 tablet by mouth daily prior to dialysis treatments 90 Tablet 3 5 12:21 PM CDT 12/30/19 25 Active Active Problems Problem Noted Date Diagnosed Date Anemia of chronic renal failure, stage 5 022 Iron deficiency anemia 12/13/2021 Encounters Date Type Department Care Team Description 12/28/2024 External Device Data [facility] ABSTRACTION Provider, Abstract 12/27/2024 External Device Data [facility] ABSTRACTION Provider, Abstract 11/29/2024 External Device Data [facility] ABSTRACTION Provider, Abstract 11/03/2024 External Device Data [facility] ABSTRACTION Provider, Abstract 11/02/2024 External Device Data [facility] ABSTRACTION Provider, Abstract 11/01/2024 External Device Data [facility] ABSTRACTION Provider, Abstract from Last 3 Months Social History Tobacco Use Types Packs/Day Years Used Date Smoking Tobacco: Never Sex and Gender Information Value Date Recorded Sex Assigned at Not on file Legal Sex Male 11:35 AM CDT Gender Identity Not on file Sexual Orientation Not on file Last Filed Vital Signs Vital Sign Reading Time Taken Comments Blood Pressure 146/58 01/20/2022 8:40 AM CDT Pulse 77 01/20/2022 8:40 AM CDT Temperature 36.6 C (97.8 F) 01/20/2022 8:40 AM CDT Respiratory Rate - - Oxygen Saturation 89% 01/20/2022 8:40 AM CDT Inhaled Oxygen Concentration - - Weight 97 kg (213 lb 12.8 oz) 01/20/2022 8:40 AM CDT Height 180.3 cm (5' 11) 01/20/2022 8:40 AM CDT Body Mass Index 29.82 01/20/2022 8:40 AM CDT Plan of Treatment Health Maintenance Due Date Last Done Comments DIABETES ANNUAL FOOT EXAM 09/20/1971 DIABETES ANNUAL RETINAL EXAM 09/20/1971 DIABETES HBA1C Q 6 MONTHS 09/20/1971 DIABETES MICROALBUMIN ANNUAL SCREEN 09/20/1971 LDL CHOLESTEROL ANNUAL 09/20/1971 DTAP/TDAP/TD VACCINES (1 - Tdap) 1972 PNEUMOCOCCAL VACCINE 50+ YEA RS (1 of 2 - PCV) 1972 08/09/2016 COLORECTAL SCREENING 1998 Colorectal Cancer Screening 1998 FIT-DNA Q 3 years 1998 FIT/FOBT Q 1 year 1998 Flex Sig/CT Colonography Q 5 years 1998 ZOSTER VACCINE (1 of 2) 09/20/2003 RSV VACCINE (60+ or ) (1 - Risk 60-74 years 1-dose series) 2013 INFLUENZA VACCINE (#1) 2025 03/29/2021, 2018 Insurance [facility] [employer] Medicare Part D Care Teams Fitness Coach Relationship Specialty Start Date End Date Kishore Rosario DO [address] [id number] PCP - General Internal Medicine 11/18/21
--- OUTSIDE RECORDS SUMMARY | 2025-01-12 10:54 | XMS_ITS ---
Author Organization [facility] Address [address] [place], [place] [id number] Care Team Providers Care Tissue Packer Name Role Phone JOHNNA LR Unavailable [phone] Kishore Rosario Unavailable Unavailable REASON FOR VISIT *General care Encounters Encounter Location Date Provider Diagnosis [facility] [place] [address] [facility] [address] [place], [place] [id number] 10/17/2024 JOHNNA LR Plan Of Treatment Next Appt Details Provider Name:DANYELLE ESQUIVEL, 01/18/2025 09:40:00 AM, [address], [place], [place], [id number], Progress Notes * KYLER DUDOB:[birth year] (69 yo M)Acc No.[id number]:10/17/2024 Patient: Amadeo CHASE KYLER Provider: Marco Lr DPM :1955 A ge:69 Y S ex:Male Date:10/17/2024 Address: [address] [place], [place] Subjective: * Chief Complaints: * 1 . *General care. * Medical History: Objective: * Vitals: Assessment: Plan: * Treatment: * Billing Information: * Visit Code: * Procedure Codes: * Electronic signature of JHONNA LR DPM on 01/12/2025 at 10:54 AM CDT Sign off status: Pending * Provider: Marco Lr DPM Date: 0 10/17/2024 Generated for [place] el/Edin/Wali on: 0 01/12/2025 10:54 AM CDT
--- OUTSIDE RECORDS SUMMARY | 2025-01-12 10:54 | XMS_ITS ---
Author Organization [facility] [address] Address [address] [place] [address] Care Team Providers Care Litigation Paralegal Name Role Phone Kishore Rosario DO Primary Care Provider [phone] Shahzad Paiz MD Unavailable [phone] Marlen Higgins MD Unavailable [phone] Demetrio Klein MD Unavailable [phone] Dialysis Access Sites Type Status Location Placement Date Removal Da te AV fistula Active Right Antecubital Fossa 10/24/2021 Procedures Procedure Name Priority Date/Time Associated Diagnosis [...] dialysis fistula, initial encounter DIALYSIS CIRCUIT/FISTULA STENT 78219 Routine 11/09/2024 12:38 PM CDT ESRD (end stage renal disease) on dialysis (HCC) INTRO CATH DIALYSIS CIRCUIT DX ANGRPH FLUOR 04373 Routine 11/09/2024 12:38 PM CDT ESRD (end [...] 10:19 AM CDT 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) HEMOGLOBIN A1C Routine 12/24/2022 3:12 PM CDT from Last 3 Months or Most Recently Relevant to Health Maintenance Allergies Active Allergy Reactions Criticality Noted Date [...] 0.4 mg SL tabletIndications:C oronary arteriosclerosis in [place] artery Place 1 tablet (0.4 mg total) under the tongue every 5 (five) minutes as needed for chest pain 25 tablet 10/28/19 19 Active omega 2-dys-uft-fish oil 100-160-1,000 mg capsule Take 1 capsule by mouth 2 (two) times a day Active albuterol 2.5 mg /3 mL (0.083 %) nebulizer solution Take 3 mL (2.5 mg total) by nebulization every 4 (four) hours as needed 10/16/19 22 Active flash glucose scanning reader (FreeStyle Lizeth 2 [place]) [facility] Use as directed to test blood sugars. [...] cindi (Epogen) 10,000 unit/mL injection Inject 1 mL(07081 units subcutaneously) Thursday, Thursday and Thursday as [...] (PLAVIX) 75 mg tabletIndications:C oronary arteriosclerosis in [place] artery TAKE 1 TABLET DAILY 90 tablet [...] proceed. Assessment & Plan (06/17/2024 12:05 PM AGING BOX HAND): Current AV duplex shows an outflow stenosis [...] dialysis. 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 SHAKEEL to th prox LAD Jul 2016. 3 hour episode of chest pain after some physical work a few days ago with no recurrence, probably an anginal episode, doubt ACS Assessment & Plan (12/08/2016 3:42 PM CDT): 2013: AUDIO VISUAL AIDE RCA, collateralized. SHAKEEL to th prox LAD [...] carvedilol Assessment & Plan (06/17/2024 12:04 PM AGING BOX HAND): Continue amlodipine and carvedilol Assessment & Plan (02/29/2024 11:42 AM CDT): Impression: Chronic and stable. Plan: Continue losartan carvedilol and isosorbide Assessment & Plan (04/13/2023 12:05 PM CDT): Impression: Chronic and stable. Plan: Continue losartan, carvedilol, isosorbide Assessment & Plan (03/16/2023 11:11 AM CDT): Continue losartan, carvedilol, isosorbide Assessment & Plan (09/04/2022 12:49 PM CDT): Carvedilol Assessment & Plan (07/28/2022 2:57 PM AGING BOX HAND): Carvedilol Assessment & Plan (03/24/2022 10:52 AM [...] insulin Assessment & Plan (06/17/2024 12:04 PM AGING BOX HAND): Continue insulin Assessment & Plan (02/29/2024 11:42 [...] Right AKA healed. Can continue working with [employer]. Follow up p.r.n.. Hyperphosphatemia History of sick sinus syndrome Immunizations Immunization Administration Dates Next Due Influenza, [...] How often do you attend chur or gnosticism services? More than 4 times per year 12/25/2022 Do you belong to any clubs o r organizations such as mosque groups, unions, fraternal or athletic groups, or [...] place to sleep or slept in a chcf (including now)? No 12/25/2022 Personal Safety Answer Date Recorded Have you ever been in or are you currently in a harmful physical or emotional relationship or is someone making you feel afraid or unsafe? Denies 11/09/2024 Sex and Gender Information Value Date Recorded Sex Assigned at Not on file Legal Sex Male 2:10 AM AGING BOX HAND Gender Identity Not on file Sexual Orientation [...] Mass Index 27.2 12/06/2024 10:14 AM CDT Results * ECG 12 lead (12/06/2024 10:15 [...] 14, 2024 Episodes last 90 days/Comments: AF [place] unable to determine %, . NORMAL DEVICE [...] Gender: M Study Date: 12/02/2024 11:01:28 AM Group President: Megan Dickson Provider: DEMETRIO KLEIN Ref Provider: [...] Vessel Velocity Rt Location Brachioceph AVF Rt Platinum Artery 250.00 cm/sec Rt Platinum Artery VF 512.00 mL/min Rt Arterial Anast 771.00 cm/sec Rt Prx Graft 141.00 cm/sec Rt Mid AVF 87.00 cm/sec Rt Mid AVF VF 645.00 mL/min Rt Dst AVF 101.00 cm/sec Rt Platinum Vein 102 Cephalic v cm/sec RIGHT STENT MEASUREMENTS: Vessel Velocity Location AVF Rt Stent Prx PSV 144.00 cm/sec Rt Stent Mid PSV 121.00 cm/sec Rt Stent Dst PSV 102.00 cm/sec Location 2 Cephalic Arch Rt Stent 2 Prx PSV 210.00 cm/sec Rt Stent 2 Mid PSV 178.00 cm/sec Rt Stent 2 Dst PSV 223.00 cm/sec Rt Stent 2 Dst Platinum PSV 175 Subclavian v cm/sec FINDINGS: Study [...] Gender: M Study Date: 12/02/2024 11:01:28 AM Group President: Megan Dickson Provider: DEMETRIO KLEIN Provider: DEMETRIO [...] Vessel Velocity Rt Location Brachioceph AVF Rt Platinum Artery 250.00 cm/sec Rt Platinum Artery VF 512.00 mL/min Rt Arterial Anast 771.00 cm/sec Rt Prx Graft 141.00 cm/sec Rt Mid AVF 87.00 cm/sec Rt Mid AVF VF 645.00 mL/min Rt Dst AVF 101.00 cm/sec Rt Platinum Vein 102 Cephalic v cm/sec RIGHT STENT MEASUREMENTS: Vessel Velocity Location AVF Rt Stent Prx PSV 144.00 cm/sec Rt Stent Mid PSV 121.00 cm/sec Rt Stent Dst PSV 102.00 cm/sec Location 2 Cephalic Arch Rt Stent 2 Prx PSV 210.00 cm/sec Rt Stent 2 Mid PSV 178.00 cm/sec Rt Stent 2 Dst PSV 223.00 cm/sec Rt Stent 2 Dst Platinum PSV 175 Subclavian v cm/sec FINDINGS: Study [...] INTRO CATH DIALYSIS CIRCUIT DX ANGRPH FLUOR 85431, DIALYSIS CIRCUIT/FISTULA STENT 50771 (2:38 PM CDT) Anatomical Region Laterality Modality X-Ray Angiograph y Narrative 11/09/2024 12:50 PM CDT Please see OpNote for result. Demetrio Klein MD CV CARDIAC CATH PROCEDURES Final Result * (ABNORMAL) POCT glucose (11/09/2024 10:19 AM CDT) [facility] Glucose, POC 252(H) 70 - 199 mg/dL Blood 11/09/2024 10:1 9 AM CDT 11/09/2024 10:19 AM CDT Demetrio Klein MD LAB POCT ORDERABLES - LUCIO CE Final Result Performing Organization Address [facility] Co de Phone Number TOMY [address] [place] [address] * (ABNORMAL) eGFR (11/09/2024 10:12 AM CDT) [...] BLOOD ORDERABLES Final Result Performing Organization Address City/[facility]/ZIP Co de Phone Number TOMY [address] [place] [address] * aPTT (11/09/2024 10:12 AM CDT) aPTT 30 22 - 37 sec Comment: Interpretive data aPTT test has not been evaluated for monitoring heparin therapy. The anti-Xa is the preferred test. Current interpretive data was last revised on 2019. Blood 11/09/2024 10:1 2 AM CDT 11/09/2024 10:22 AM CDT Demetrio Klein MD LAB BLOOD ORDERABLES Final Result Performing Organization Address [facility] de Phone Number [address] [address] * Protime-INR (11/09/2024 10:12 AM CDT) PT 14.2 12.0 - 14.6 sec INR 1.1 0.9 - 1.[address] [facility] Comment: Ref Range High Interpretive data Oral [...] BLOOD ORDERABLES Final Result Performing Organization Address [facility] de Phone Number [address] [address] * (ABNORMAL) CBC without differential (11/09/2024 10:12 AM CDT) WBC 6.98 3.80 - 9.90 K/cumm Hgb 12.1(L) 13.0 - 17.5 g/dL [facility] Hct 36.8(L) 38.9 - 50.3 % [facility] Plt 177 150 - 400 K/cumm [facility] MPV 9.5 9.1 - 12.[address] [facility] RBC 3.70(L) 4.30 - 5.80 M/cumm [facility] MCV 99.5(H) 81.3 - 96.[address] [facility] MCH 32.7 27.1 - 33.[address] [facility] MCHC 32.9 32.3 - 35.7 g/dL [facility] RDW CV 13.8 11.1 - 14.9 % [facility] RDW SD 48.9(H) 35.7 - 48.[address] [facility] NRBC abs 0.00 0.00 - 0.01 K/cumm [facility] Blood 11/09/2024 10:1 2 AM CDT 11/09/2024 10:22 AM CDT us Demetrio Klein MD LAB BLOOD ORDERABLES Final Result [place] [id number] [facility] [place] [address] * (ABNORMAL) Basic metabolic panel (11/09/2024 10:12 AM CDT) Sodium 139 135 - 145 mmol/L Potassium, pl 4.9 3.3 - 4.9 mmol/L [facility] Chloride 98 97 - 110 mmol/L [facility] CO2 27 22 - 32 mmol/L [facility] Anion gap 14 2 - 15 mmol/L [facility] BUN 54(H) 6 - 25 mg/dL [facility] Creatinine 5.71(H) 0.80 - 1.30 mg/dL [facility] Glucose 267(H) 70 - 199 mg/dL [facility] Comment: Interpretive Data Fasting glucose >/= 126 [...] 2022. Calcium 9.5 8.5 - 10.3 mg/dL [facility] Blood 11/09/2024 10:1 2 AM CDT 11/09/2024 10:22 AM CDT us Demetrio Klein MD LAB BLOOD ORDERABLES Final Result TOMY [facility] [address] [facility] [place] [address] * US Hemodialysis Access (10/28/2024 10:54 AM CDT) Anatomical Region Laterality Modality Vascular N/A Ultrasound 10/28/2024 9:43 AM CDT Narrative 10/28/2024 1:59 PM CDT Hemodialysis Access Duplex Report Patient Name: KYLER DU E : 1955 (69y 1m) Gender: M Study Date: 10/28/2024 09:43:52 AM Group President: Elham Del Rosario Provider: DEMETRIO KLEIN Ref [...] Vessel Velocity Rt Location RT BRACHIOCEPH Rt Platinum Artery 200.00 cm/sec Rt Platinum Artery VF 925.00 mL/min Rt Arterial Anast 450/197 cm/sec Rt Prx Graft 614/323 cm/sec Rt Prx-Mid AVF 674/289 cm/sec Rt Mid AVF 162/78 cm/sec Rt Mid AVF VF 2805.00 mL/min Rt Mid-Dist AVF 34.00 cm/sec Rt Dst AVF 73.00 cm/sec Rt Platinum Vein 69 CEPH V cm/sec RIGHT STENT MEASUREMENTS: Vessel Velocity Location RT CEPH ARCH Rt Stent Prx Platinum PSV 75.00 cm/sec Rt Stent Prx Attachment PSV 246.00 cm/sec Rt Stent Mid PSV 199/116 cm/sec Rt Stent Dst Attachment PSV 214/121 cm/sec Rt Stent Dst Platinum PSV 239.00 cm/sec FINDINGS: Study Quality: The [...] velocities at the proximal attachment and distal [place] subclavian vein. CONCLUSIONS: 1. Increased velocity in the fistula at the mid portion of the upper arm/forearm. Electronically Signed By: Demetrio Klein MD 10/28/2024 1:58:09 PM CDT Procedure Note Demetrio Klein MD - 10/28/2024 Hemodialysis Access Duplex Report Patient Name: KYLER DU E : 1955 (69y 1m) Gender: M Study Date: 10/28/2024 09:43:52 AM Group President: Elham Del Rosario Provider: DEMETRIO KLEIN Provider: [...] Vessel Velocity Rt Location RT BRACHIOCEPH Rt Platinum Artery 200.00 cm/sec Rt Platinum Artery VF 925.00 mL/min Rt Arterial Anast 450/197 cm/sec Rt Prx Graft 614/323 cm/sec Rt Prx-Mid AVF 674/289 cm/sec Rt Mid AVF 162/78 cm/sec Rt Mid AVF VF 2805.00 mL/min Rt Mid-Dist AVF 34.00 cm/sec Rt Dst AVF 73.00 cm/sec Rt Platinum Vein 69 CEPH V cm/sec RIGHT STENT MEASUREMENTS: Vessel Velocity Location RT CEPH ARCH Rt Stent Prx Platinum PSV 75.00 cm/sec Rt Stent Prx Attachment PSV 246.00 cm/sec Rt Stent Mid PSV 199/116 cm/sec Rt Stent Dst Attachment PSV 214/121 cm/sec Rt Stent Dst Platinum PSV 239.00 cm/sec FINDINGS: Study Quality: The [...] Increased velocitiesat the proximal attachment and distal [place] subclavian vein. CONCLUSIONS: 1. Increased velocity in the fistula at the mid portion of the upperarm/forearm. Electronically Signed By: Demetrio Klein MD 10/28/2024 1:58:09 PM CDT us [facility]rio Klein [facility] PROCED[facility] Final Re sult * DEVICE CHECK [...] lead and minimal testing of v-lead. Presenting rhythm-ANESTHESIA ASSISTANT. Medications; Plavix, Coreg, Epogen, Insulin, Ozempic. No [...] of the data is missing. I contacted [employer] technical service department and I was informed [...] us Charlie Bernard MD CV CARDIAC SERVICES [facility] Final Result * POCT lipid [...] and children were not included. (Diabetes Care 31:[id number], 2008). The eAG is not equivalent to a fasting glucose. Blood 12/24/2022 3:12 PM CDT 12/24/2022 3:26 PM CDT Kaley Wray NP LAB BLOOD ORDERABLES Final Re sult TOMY [facility] [address] [facility] [place] [address] from Last 3 Months or Most Recently Relevant to Health Maintenance
--- OUTSIDE RECORDS SUMMARY | 2025-01-12 10:54 | XMS_ITS ---
Author Organization [facility] Address [address] [place], [place] [id number] Care Team Providers Care Animal Husbandry Manager Name Role Phone JOHNNA LR Unavailable [phone] Kishore Rosario Unavailable Unavailable DANYELLE BOND Unavailable [phone] Allergies Allergen (clinical drug ingredient) Drug/Non Drug [...] Location Date Provider Diagnosis [facility] [address] [place], [place] [id number] 10/26/2024 DANYELLE BOND Plantar fascial fibromatosis M72.2 [...] begin in home P.T. next week through [facility]. 10/26/2024 Localized edema (ICD-10 - R60.0) An [...] begin in home P.T. next week through [facility]. Localized edema An unna boot was applied [...] up heel pain, edema Provider Name:DANYELLE ESQUIVEL, 01/18/2025 09:40:00 AM, [address], [facility], [place], [place], [id number], Progress Notes * KYLER DUDOB:[birth year] (69 yo M)Acc No.[id number]:10/26/2024 Patient: Amadeo ZAMZAMKYLER PATEL Provider: Kailyn BOND :1955 A ge:69 Y S ex:Male Date:10/26/2024 Address:[facility] [address] [facility] Subjective: * Chief Complaints: * 1 . [...] begin in home P.T. next week through [facility]. 3. L ocalized edema Notes: An unna [...] edema) * Billing Information: * Visit Code: 04255 Office Visit, Est Pt., Level 3. Modifiers: 25 * Procedure Codes: 01282 APPLICATION OF PASTE BOOT. Modifiers: LT * Electronic signature of PRASANNA BOND DPM on 01/12/2025 at 10:53 AM CDT Sign off status: Pending * Provider: Kailyn BOND Date: 0 10/26/2024 Generated for [place] el/Edin/Wali on: 0 01/12/2025 10:53 AM CDT History and Physical Notes * HPI [...] foot when he flexes it. , [place]: [facility] Examination Category Sub-Category Detail Notes Category [...]
--- OUTSIDE RECORDS SUMMARY | 2025-01-12 10:55 | XMS_ITS | Encounter Summary ---
Author Organization [facility] Healthcare Address [address] [place] [address] Care Team Providers Care Housekeeping Laundry Worker Name Role Phone Kishore Rosario DO Primary Care Provider +- [phone] Shahzad Paiz MD Unavailable [phone] Marlen Higgins MD Unavailable [phone] Demetrio Klein MD Unavailable [phone] Encounter Details Date Type Department Care Team (Late st Contact Info) Description 01/31/2022 Telephone [facility] D[facility] Access [facility] at [facility] [address] [place] [address] Reece Klein MD [address] [place] [address] [address] [place] [address] Social History Tobacco Use Types Packs/Day Years Used Date Smoking Tobacco: Never Smokeless Tobacco: Never Alcohol Use Standard Drinks/Week Comments Yes 0 (1 standard drink = 0.6 oz pur e alcohol) AUDIT-C Answer Date Recorded Q1: How often do you have a drink containing alcohol? Never 01/31/2022 Q2: How many drinks containi ng alcohol do you have on a typical day when you are drinking? Patient does not drink 2 Q3: How often do you have si x or more drinks on one occasion? Never 01/31/2022 Sex and Gender Information Value Date Recorded Sex Assigned at Not on file Legal Sex Male 2:10 AM DRILL INSTRUCTOR Gender Identity Not on file Sexual Orientation Not on file documented as of this encounter Functional Status * Audit-C Score Answer Date of Assessment Author 0 01/31/2022 1:07 PM Pelon Decker RN * Question Answer Date of Assessment Author Q1: How often do you have a drink containing alcohol? Never 01/31/2022 1:07 PM Kenzie Decker RN Q2: How many drinks containing alcohol do you have on a typical day when you are drinking? Patient does not drink 01/31/2022 1:07 PM Kenzie Decker RN Q3: How often do you have six or more drinks on one occasion? Never 01/31/2022 1:07 PM Kenzie Decker RN documented as of this encounter Plan of Treatment Not on file documented as of this encounter Visit Diagnoses Not on filedocumented in this encounter Care Teams Housekeeping Laundry Worker Relationship Specialty Start Date End Date Kishore Rosario DO PCP - General Internal Medicine 04/13/17 Shahzad Paiz MD Referring Physician Nephrology 01/31/22 Marlen Higgins MD Consulting Physician Cardiology 01/31/22 Demetrio Klein MD [address] [place] [address] [place] [address] Surgeon Surgery 03/26/22 Dr Reba Diez [place], MD Endocrinology 01/31/22 documented as of this encounter
--- OUTSIDE RECORDS SUMMARY | 2025-01-12 10:55 | XMS_ITS | Encounter Summary ---
Author Organization [facility] Healthcare Address [address] [place] [address] Care Team Providers Care Auto Collision Repair Instructor Name Role Phone Kishore Rosario DO Primary Care Provider + [phone] Shahzad Paiz MD Unavailable [phone] Marlen Higgins MD Unavailable [phone] Demetrio Klein MD Unavailable [phone] Encounter Details Date Type Department Care Team (Late st Contact Info) Description 03/25/2022 Telephone [facility] Dialysis Access Center at [facility] [address] [facility] [address] [place], [place] [id number] Demetrio Klein MD [address] [place] [address] [address] [facility] [address] [place] [address] Social History Tobacco Use Types Packs/Day Years Used Date Smoking Tobacco: Never Smokeless Tobacco: Never Alcohol Use Standard Drinks/Week Comments Yes 0 (1 standard drink = 0.6 oz pur e alcohol) AUDIT-C Answer Date Recorded Q1: How often do you have a drink containing alcohol? Never 02/07/2022 Q2: How many drinks containi ng alcohol do you have on a typical day when you are drinking? Patient does not drink Q3: How often do you have si x or more drinks on one occasion? Never 02/07/2022 Sex and Gender Information Value Date Recorded Sex Assigned at Not on file Legal Sex Male 2:10 AM MAKEUP ARTISTRY INSTRUCTOR Gender Identity Not on file Sexual Orientation Not on file documented as of this encounter Plan of Treatment Not on file documented as of this encounter Visit Diagnoses Not on filedocumented in this encounter Care Teams Auto Collision Repair Instructor Relationship Specialty Start Date End Date Kishore Rosario DO PCP - General Internal Medicine 04/13/17 Shahzad Paiz MD Referring Physician Nephrology 01/31/22 Marlen Higgins MD Consulting Physician Cardiology 01/31/22 Demetrio Klein MD [address] [place] [address] [place] [address] Surgeon Surgery 03/26/22 Dr Reba Diez [place], [place] Endocrinology 01/31/22 documented as of this encounter
--- OUTSIDE RECORDS SUMMARY | 2025-01-12 10:55 | XMS_ITS | Encounter Summary ---
Author Organization [facility] Healthcare Address [address] [place] [address] Care Team Providers Care Wreath Machine Tender Name Role Phone Kishore Rosario DO Primary Care Provider + [phone] Shahzad Paiz MD Unavailable [phone] Marlen Higgins MD Unavailable [phone] Demetrio Klein MD Unavailable [phone] Encounter Details Date Type Department Care Team (Late st Contact Info) Description 06/21/2024 Telephone [facility] [address] [facility] [address] [place] [address] Reece Klein MD [address] [place] [address] [address] [place] [address] Social History Tobacco Use Types Packs/Day Years [...] often do you attend chur ch or confucianism services? More than 4 times per year 12/25/2022 Do you belong to any clubs o r organizations such as yazidi groups, unions, fraternal or athletic groups, or [...] health care facility (including now)? No 12/25/2022 Personal Safety Answer Date Recorded Have you ever been in or are you currently in a harmful physical or emotional relationship or is someone making you feel afraid or unsafe? Denies 07/17/2023 Sex and Gender Information Value Date Recorded Sex Assigned at Not on file Legal Sex Male 2:10 AM CLAIMS ASSOCIATE Gender Identity Not on file Sexual Orientation Not on file documented as of this encounter Plan of Treatment Not on file documented as of this encounter Visit Diagnoses Not on filedocumented in this encounter Care Teams Wreath Machine Tender Relationship Specialty Start Date End Date Kishore Rosario DO PCP - General Internal Medicine 04/13/17 Shahzad Paiz MD Referring Physician Nephrology 01/31/22 Marlen Higgins MD Consulting Physician Cardiology 01/31/22 Demetrio Klein MD [address] [place] [address] [place] [address] Surgeon Surgery 03/26/22 Dr Reba Diez [place], [place] Endocrinology 01/31/22 documented as of this encounter
[2025-01-12 11:17] LABS: Hematocrit 31.2 % (42.0-52.0); Hemoglobin 10.1 g/dL (14.0-18.0); Immature Granulocyte Percent A 0.6 % (0-0.5); Lymphocytes Absolute Auto 1.26 K/mm3 (0.9-3.2); Mean Corpuscular HGB Conc 32.4 g/dl (32-36); Mean Corpuscular Hemoglobin 33.7 pg (26-34); Mean Corpuscular Volume 104.0 fl (80-100); Nucleated Red Blood Cells Absolute Auto 0.000 K/mm3 (0.0-0.012); Nucleated Red Blood Cells Perc 0.0 % (0.0-0.2); Platelet Count Result 166 k/mm3 (150-375); Red Blood Count 3.00 M/mm3 (4.6-6.20); White Blood Count 10.7 K/mm3 (4.5-10.0)
[2025-01-12 11:49] LABS: Alanine Aminotransferase 19 U/L (6-50); Albumin Level 4.1 g/dL (3.5-5.1); Alkaline Phosphatase 76 U/L (38-126); Anion Gap 7 mmol/L (4-12); Aspartate Amino Transferase 32 U/L (17-59); Bilirubin,Total 1.1 mg/dL (0.2-1.3); Blood Urea Nitrogen 31 mg/dL (9-20); Calcium 8.9 mg/dL (8.4-10.2); Carbon Dioxide 32 mmol/L (22-30); Chloride 99 mmol/L (98-107); Estimated CRCL calculation 15 ml/min; Estimated Glomerular Filt Rate 14; Glucose 111 mg/dL (65-110); Potassium 5.0 mmol/L (3.4-5.0); Sodium 138 mmol/L (137-145); Total Protein 7.8 g/dL (6.3-8.2)
[2025-01-12 11:53] LABS: NT Pro B Type Natriuretic Pept 16200 pg/mL (19.9-100)
--- NOTE | 2025-01-12 14:25 | ED.SOB ---
HPI - SOB/Dyspnea General Chief Complaint: Shortness of Breath/Dyspnea Stated Complaint: SOB Time Seen by Provider: 01/12/25 10:07 History of Present Illness HPI Narrative: Patient is a 69-year-old male who presents ER with shortness of breath. He was at dialysis and found to be hypoxic in the 70s. He was placed on 4 L of O2. He had missed his dialysis 2 days ago and he had extra fluid taken off. Total removal of 2.5 L today. Patient is still hypoxic requiring 2 L of oxygen and sent to the ER. Has had mild cough. He has had some postnasal drip with hoarseness today. No known fevers. Patient sees Dr. Paiz. Related Data Home Medications ?Medication ?Instructions ?Recorded ?Confirmed ?Last Taken ?Type ezetimibe 10 mg tablet 10 mg PO DAILY 01/02/22 01/12/25 11/28/24 20:00 History multivitamin 1 tablet PO DAILY 02/11/23 01/12/25 11/29/24 08:00 History omega 6-nvk-koe-fish oil 1,000 mg 1 cap PO DAILY 02/11/23 01/12/25 11/29/24 08:00 History (120 mg-180 mg) capsule (Fish Oil) cholecalciferol (vitamin D3) 25 125 mcg PO DAILY 04/09/23 01/12/25 11/29/24 08:00 History mcg (1,000 unit) capsule dulaglutide 1.5 mg/0.5 mL 1.5 mg subcut WEEKLY 01/12/25 01/12/25 Unknown History subcutaneous pen injector (Trulicity) gabapentin 100 mg capsule 100 mg PO DAILY 01/12/25 01/12/25 Unknown History irbesartan 150 mg tablet 150 mg PO DAILY 01/12/25 01/12/25 Unknown History isosorbide dinitrate 5 mg tablet 5 mg PO BID 01/12/25 01/12/25 Unknown History (Isordil Titradose) nitroglycerin 0.4 mg sublingual 0.4 mg sublingual Q5-15M PRN chest 01/12/25 01/12/25 Unknown History tablet pain pantoprazole 40 mg tablet,delayed 40 mg PO QAM 01/12/25 01/12/25 Unknown History release (Protonix) prednisolone acetate 1 % eye 1 drp EACH EYE Q12H 01/12/25 01/12/25 Unknown History drops,suspension Allergies Allergy/AdvReac Type Severity Reaction Status Date / Time Iodinated Contrast Media Allergy Unknown Hives Verified 01/12/25 15:55 lisinopril AdvReac Cough Verified 01/12/25 15:55 Review of Systems Review of Systems: All systems reviewed & are unremarkable except as noted in HPI and below Constitutional: Constitutional: Reports no additional constitutional complaints Cardiovascular: Cardiovascular: Reports no additional cardiovascular complaints Respiratory: Respiratory: Reports no additional respiratory complaints Gastrointestinal: Gastrointestinal: Reports no additional gastrointestinal complaints [facility] Past Medical History Medical History Chronic hypoxemic respiratory failure Peripheral neuropathy Pacemaker Cataracts, bilateral Type 2 diabetes mellitus with diabetic nephropathy Onychomycosis Melanemia Laryngospasms Ischemic cardiomyopathy Hemoptysis Essential hypertension DM renal manif type II, uncontrolled Chronic diastolic congestive heart failure Body mass index (BMI) greater than 30 (01/18/19) Dialysis patient Insulin dependent type 2 diabetes mellitus Stage 5 chronic kidney disease Duodenal ulcer (11/2021) History of colon polyps Chronic anemia Orthostasis Related to autonomic dysfunction from his diabetes. Benign prostatic hyperplasia Chronic obstructive pulmonary disease Diastolic congestive heart failure Echocardiogram on 01/31/2021 showed normal LV systolic function with moderately increased LV wall thickness and grade 1 diastolic dysfunction with an EF estimated 55%. Cerumen impaction Hyperlipidemia, unspecified Coronary artery disease Catheterization and 2006 showed a chronically occluded RCA. In 2016 he had a drug-eluting stent to the proximal left anterior descending. Hypertension Surgical History Surgical History History of right above knee amputation History of right below knee amputation S/P AKA (above knee amputation) unilateral Right 2022 H/O colonoscopy with polypectomy History of esophagogastroduodenoscopy Status post creation of arteriovenous fistula History of eye surgery Laser eye surgery. History of ankle surgery Left ORIF Status post insertion of drug-eluting stent into left anterior descending (LAD) artery for coronary artery disease Status post cardiac pacemaker procedure His 1st pacemaker was placed in his 30s for sinus pause, syncope and bradycardia and he had generator changes in 2002, 2006, and 2011. His RV lead has high thresholds and he was not pacing in also it was turned off. Family History Family History Father Family history of premature coronary heart disease, Onset Age: 53 Cerebrovascular accident Patient's father is Diabetes mellitus Hypertension Family history of cardiovascular disease Kidney disease Sibling Carcinoma of colon, Onset Age: 39 Mother Patient's mother is , Onset Age: 73 Social History Social History Social History: He still lives with Tabatha at home. His decision maker is anyone of his 3 children mainly Adele. Advanced directives is on chart. Patient wishes to be a full code at this time however does not want any life-sustaining measures for an excessive amount of time. 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 Surrogate decision maker: Lidia Morris, daughter. Code status: Full code. Smoking status: Never smoker Smoking end date: 06/15/84 Additional smoking assessment comments: Smoked briefly as a teenager. Alcohol intake: never Substance use: never Substance use type: does not use Do You Feel Safe in your Home?: Yes Lack of Transportation: No Lack of Food: Never True Current Housing: I Have Housing Concerned About Future Housing: No Difficulty Paying Gas/Electric Bills: No Difficulty Paying for Meds: No Currently Unemployed: No Education: High School Diploma/GED Difficulty w/ Childcare or Family Care: No Living arrangements: with family Additional living arrangements comments: The patient lives with his , Tabatha, who suffers from dementia. 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 Gender identity (if verbalized by the patient): Male Sexual Orientation (if Verbalized by the Patient): Straight or Heterosexual Spiritual care concerns: No Agree to blood products: Yes Exam Narrative: GENERAL: Well-appearing, well-nourished, and in no acute distress. HEAD: Normocephalic, atraumatic. ENT: Mucous membranes moist. NECK: Supple. CHEST: Bibasilar crackles. No respiratory distress. HEART: Regular rate and rhythm. Normal peripheral pulses. ABDOMEN: Soft, nontender, nondistended. EXTREMITIES: Normal range of motion. 1+ edema. SKIN: Warm, dry, no rash. NEURO: Alert and oriented x3. PSYCH: Normal mood and affect. Course Course Emergency Course: Patient is still hypoxia. Nephrology consulted. Volume overload versus pneumonia. Antibiotics ordered. Accepted by hospitalist service. Vital Signs Vital signs: Vital Signs Pulse Rate 91 01/12/25 10:04 Respiratory Rate 22 H 01/12/25 10:04 Blood Pressure 160/62 H 01/12/25 10:04 Pulse Oximetry 94 01/12/25 10:04 Oxygen Delivery Nasal Cannula 01/12/25 10:04 Oxygen Flow Rate 2 01/12/25 10:04 Pulse Rate 89 01/12/25 14:59 Respiratory Rate 17 01/12/25 14:59 Blood Pressure 175/68 H 01/12/25 14:00 Pulse Oximetry 100 01/12/25 14:59 Oxygen Delivery Nasal Cannula 01/12/25 11:12 Oxygen Flow Rate 2 01/12/25 11:12 MDM - SOB/Dyspnea Lab Data 01/12/25 11:09 01/12/25 11:09 Labs: Lab Results 01/12/25 01/12/25 01/12/25 Range/Units 10:39 11:09 11:09 WBC 10.7 H (4.5-10.0) K/mm3 RBC 3.00 L (4.6-6.20) M/mm3 Hgb 10.1 L (14.0-18.0) g/dL Hct 31.2 L (42.0-52.0) % MCV 104.0 H (80-100) fl MCH 33.7 (26-34) pg MCHC 32.4 (32-36) g/dl RDW 13.9 (11.5-14.5) % Plt Count 166 (150-375) k/mm3 MPV 9.4 (7.4-10.4) fl Immature Gran % (Auto) 0.6 H (0-0.5) % Neut % (Auto) 77.4 H (45.5-73.1) % Lymph % (Auto) 11.8 L (18.3-44.2) % [place] % (Auto) 9.9 H (2.6-8.5) % Eos % (Auto) 0.0 (0-4.4) % Baso % (Auto) 0.3 (0.2-1.2) % Lymph # (Auto) 1.26 (0.9-3.2) K/mm3 [place] # (Auto) 1.1 H (0.1-0.6) K/mm3 Eos # (Auto) 0.0 (0-0.3) K/mm3 Baso # (Auto) 0.0 (0.0-0.1) K/mm3 Abs Immat Gran (auto) 0.06 H (0.00-0.031) K/mm3 Absolute Neuts (auto) 8.3 H (1.3-6.7) K/mm3 Absolute Nucleated RBC 0.000 (0.0-0.012) K/mm3 Nucleated RBC % 0.0 (0.0-0.2) % Sodium Cancelled 138 Potassium Cancelled Chloride Carbon Dioxide Anion Gap BUN Creatinine Estim Creat Clear Calc Estimated GFR Glucose POC Capillary Glucose 112 H (65-105) mg/dl Calcium Total Bilirubin AST ALT Alkaline Phosphatase NT-Pro-B Natriuret Pep (19.9-100) pg/mL Total Protein Albumin 01/12/25 01/12/25 01/12/25 Range/Units 11:09 11:09 11:09 WBC (4.5-10.0) K/mm3 RBC (4.6-6.20) M/mm3 Hgb (14.0-18.0) g/dL Hct (42.0-52.0) % MCV (80-100) fl MCH (26-34) pg MCHC (32-36) g/dl RDW (11.5-14.5) % Plt Count (150-375) k/mm3 MPV (7.4-10.4) fl Immature Gran % (Auto) (0-0.5) % Neut % (Auto) (45.5-73.1) % Lymph % (Auto) (18.3-44.2) % [place] % (Auto) (2.6-8.5) % Eos % (Auto) (0-4.4) % Baso % (Auto) (0.2-1.2) % Lymph # (Auto) (0.9-3.2) K/mm3 [place] # (Auto) (0.1-0.6) K/mm3 Eos # (Auto) (0-0.3) K/mm3 Baso # (Auto) (0.0-0.1) K/mm3 Abs Immat Gran (auto) (0.00-0.031) K/mm3 Absolute Neuts (auto) (1.3-6.7) K/mm3 Absolute Nucleated RBC (0.0-0.012) K/mm3 Nucleated RBC % (0.0-0.2) % Sodium Potassium 5.0 Chloride Cancelled 99 Carbon Dioxide Cancelled 32 H Anion Gap Cancelled BUN Creatinine Estim Creat Clear Calc Estimated GFR Glucose POC Capillary Glucose (65-105) mg/dl Calcium Total Bilirubin AST ALT Alkaline Phosphatase NT-Pro-B Natriuret Pep (19.9-100) pg/mL Total Protein Albumin 01/12/25 01/12/25 01/12/25 Range/Units 11:09 11:09 11:09 WBC (4.5-10.0) K/mm3 RBC (4.6-6.20) M/mm3 Hgb (14.0-18.0) g/dL Hct (42.0-52.0) % MCV (80-100) fl MCH (26-34) pg MCHC (32-36) g/dl RDW (11.5-14.5) % Plt Count (150-375) k/mm3 MPV (7.4-10.4) fl Immature Gran % (Auto) (0-0.5) % Neut % (Auto) (45.5-73.1) % Lymph % (Auto) (18.3-44.2) % [place] % (Auto) (2.6-8.5) % Eos % (Auto) (0-4.4) % Baso % (Auto) (0.2-1.2) % Lymph # (Auto) (0.9-3.2) K/mm3 [place] # (Auto) (0.1-0.6) K/mm3 Eos # (Auto) (0-0.3) K/mm3 Baso # (Auto) (0.0-0.1) K/mm3 Abs Immat Gran (auto) (0.00-0.031) K/mm3 Absolute Neuts (auto) (1.3-6.7) K/mm3 Absolute Nucleated RBC (0.0-0.012) K/mm3 Nucleated RBC % (0.0-0.2) % Sodium Potassium Chloride Carbon Dioxide Anion Gap 7 BUN Cancelled 31 H Creatinine Cancelled 4.27 H Estim Creat Clear Calc Cancelled Estimated GFR Glucose POC Capillary Glucose (65-105) mg/dl Calcium Total Bilirubin AST ALT Alkaline Phosphatase NT-Pro-B Natriuret Pep (19.9-100) pg/mL Total Protein Albumin 01/12/25 01/12/25 01/12/25 Range/Units 11:09 11:09 11:09 WBC (4.5-10.0) K/mm3 RBC (4.6-6.20) M/mm3 Hgb (14.0-18.0) g/dL Hct (42.0-52.0) % MCV (80-100) fl MCH (26-34) pg MCHC (32-36) g/dl RDW (11.5-14.5) % Plt Count (150-375) k/mm3 MPV (7.4-10.4) fl Immature Gran % (Auto) (0-0.5) % Neut % (Auto) (45.5-73.1) % Lymph % (Auto) (18.3-44.2) % [place] % (Auto) (2.6-8.5) % Eos % (Auto) (0-4.4) % Baso % (Auto) (0.2-1.2) % Lymph # (Auto) (0.9-3.2) K/mm3 [place] # (Auto) (0.1-0.6) K/mm3 Eos # (Auto) (0-0.3) K/mm3 Baso # (Auto) (0.0-0.1) K/mm3 Abs Immat Gran (auto) (0.00-0.031) K/mm3 Absolute Neuts (auto) (1.3-6.7) K/mm3 Absolute Nucleated RBC (0.0-0.012) K/mm3 Nucleated RBC % (0.0-0.2) % Sodium Potassium Chloride Carbon Dioxide Anion Gap BUN Creatinine Estim Creat Clear Calc 15 Estimated GFR Cancelled 14 L Glucose Cancelled 111 H POC Capillary Glucose (65-105) mg/dl Calcium Cancelled Total Bilirubin AST ALT Alkaline Phosphatase NT-Pro-B Natriuret Pep (19.9-100) pg/mL Total Protein Albumin 01/12/25 01/12/2501/12/25 Range/Units 11:09 11:09 11:09 WBC (4.5-10.0) K/mm3 RBC (4.6-6.20) M/mm3 Hgb (14.0-18.0) g/dL Hct (42.0-52.0) % MCV (80-100) fl MCH (26-34) pg MCHC (32-36) g/dl RDW (11.5-14.5) % Plt Count (150-375) k/mm3 MPV (7.4-10.4) fl Immature Gran % (Auto) (0-0.5) % Neut % (Auto) (45.5-73.1) % Lymph % (Auto) (18.3-44.2) % [place] % (Auto) (2.6-8.5) % Eos % (Auto) (0-4.4) % Baso % (Auto) (0.2-1.2) % Lymph # (Auto) (0.9-3.2) K/mm3 [place] # (Auto) (0.1-0.6) K/mm3 Eos # (Auto) (0-0.3) K/mm3 Baso # (Auto) (0.0-0.1) K/mm3 Abs Immat Gran (auto) (0.00-0.031) K/mm3 Absolute Neuts (auto) (1.3-6.7) K/mm3 Absolute Nucleated RBC (0.0-0.012) K/mm3 Nucleated RBC % (0.0-0.2) % Sodium Potassium Chloride Carbon Dioxide Anion Gap BUN Creatinine Estim Creat Clear Calc Estimated GFR Glucose POC Capillary Glucose (65-105) mg/dl Calcium 8.9 Total Bilirubin Cancelled 1.1 AST Cancelled 32 ALT Cancelled Alkaline Phosphatase NT-Pro-B Natriuret Pep (19.9-100) pg/mL Total Protein Albumin 01/12/25 01/12/25 01/12/25 Range/Units 11:09 11:09 11:09 WBC (4.5-10.0) K/mm3 RBC (4.6-6.20) M/mm3 Hgb (14.0-18.0) g/dL Hct (42.0-52.0) % MCV (80-100) fl MCH (26-34) pg MCHC (32-36) g/dl RDW (11.5-14.5) % Plt Count (150-375) k/mm3 MPV (7.4-10.4) fl Immature Gran % (Auto) (0-0.5) % Neut % (Auto) (45.5-73.1) % Lymph % (Auto) (18.3-44.2) % [place] % (Auto) (2.6-8.5) % Eos % (Auto) (0-4.4) % Baso % (Auto) (0.2-1.2) % Lymph # (Auto) (0.9-3.2) K/mm3 [place] # (Auto) (0.1-0.6) K/mm3 Eos # (Auto) (0-0.3) K/mm3 Baso # (Auto) (0.0-0.1) K/mm3 Abs Immat Gran (auto) (0.00-0.031) K/mm3 Absolute Neuts (auto) (1.3-6.7) K/mm3 Absolute Nucleated RBC (0.0-0.012) K/mm3 Nucleated RBC % (0.0-0.2) % Sodium Potassium Chloride Carbon Dioxide Anion Gap BUN Creatinine Estim Creat Clear Calc Estimated GFR Glucose POC Capillary Glucose (65-105) mg/dl Calcium Total Bilirubin AST ALT 19 Alkaline Phosphatase Cancelled 76 NT-Pro-B Natriuret Pep 66061 H (19.9-100) pg/mL Total Protein Cancelled 7.8 Albumin Cancelled 01/12/25 Range/Units 11:09 WBC (4.5-10.0) K/mm3 RBC (4.6-6.20) M/mm3 Hgb (14.0-18.0) g/dL Hct (42.0-52.0) % MCV (80-100) fl MCH (26-34) pg MCHC (32-36) g/dl RDW (11.5-14.5) % Plt Count (150-375) k/mm3 MPV (7.4-10.4) fl Immature Gran % (Auto) (0-0.5) % Neut % (Auto) (45.5-73.1) % Lymph % (Auto) (18.3-44.2) % [place] % (Auto) (2.6-8.5) % Eos % (Auto) (0-4.4) % Baso % (Auto) (0.2-1.2) % Lymph # (Auto) (0.9-3.2) K/mm3 [place] # (Auto) (0.1-0.6) K/mm3 Eos # (Auto) (0-0.3) K/mm3 Baso # (Auto) (0.0-0.1) K/mm3 Abs Immat Gran (auto) (0.00-0.031) K/mm3 Absolute Neuts (auto) (1.3-6.7) K/mm3 Absolute Nucleated RBC (0.0-0.012) K/mm3 Nucleated RBC % (0.0-0.2) % Sodium Potassium Chloride Carbon Dioxide Anion Gap BUN Creatinine Estim Creat Clear Calc Estimated GFR Glucose POC Capillary Glucose (65-105) mg/dl Calcium Total Bilirubin AST ALT Alkaline Phosphatase NT-Pro-B Natriuret Pep (19.9-100) pg/mL Total Protein Albumin 4.1 Critical Care Time Critical Care Time Critical Care Time: Yes Total Critical Care Time: 35 Discharge Plan Discharge Clinical Impression: Hypoxia, Pulmonary edema Pneumonia Qualifiers: Pneumonia type: due to unspecified organism Laterality: unspecified laterality Lung location: unspecified part of lung Qualified Code(s): J18.9 - Pneumonia, unspecified organism Patient Disposition: Still a Patient Condition: Stable
--- NOTE | 2025-01-12 15:15 | ADMGEN ---
This patient, Freddie Valero, was admitted to Medical Room 250-01. Patient/family oriented to hospital policies and general routines including ID bracelet, bed and alarms, visiting hours, pain management, procedures, bathroom and other care routines, personal items, smoking policy, room service/diet, and visiting hours. Information on how to activate the Rapid Response Team has been discussed. Patient/Family are encouraged to report perceived risks to care and to ask questions if they do not understand what they are told or what they should do.
--- NOTE | 2025-01-12 15:33 | WNDPHOTO ---
PHOTO ONLY - See Nursing Notes and/ or assessments for documentation.
--- NOTE | 2025-01-12 15:35 | WNDPHOTO ---
PHOTO ONLY - See Nursing Notes and/ or assessments for documentation.
[2025-01-12] MEDS: cefTRIAXone 1 GM in SODIUM CHLORIDE 0.9% IV 50 ML 100 ML IVPB (16:14)
[2025-01-12] MEDS: AZITHROMYCIN IV 500 MG in SODIUM CHLORIDE 0.9% IV 250 ML IVPB (16:14)
--- NOTE | 2025-01-12 16:50 | P.HP_ITS ---
H&P: HPI History of Present Illness Date/Time: 01/12/25 16:50 Chief Complaint: Shortness of breath Narrative: 69-year-old male past medical history of COPD, diabetes type 2, hypertension, end-stage renal disease on dialysis and CAD presents the hospital with shortness of breath. Patient states that he missed dialysis on Thursday because the bus did not pick him up. Patient states that he has been increasingly short of breath so he came into the hospital. Lab work shows leukocytosis at 10.7, anemia hemoglobin 10.1, carbon dioxide of 3.2, BUN of 31, creatinine of 4.27, GFR 14 [place] [address]. Chest x-ray shows bibasilar airspace disease with crowding of the pulmonary vessels due to low lung lines. Patient being admitted for pulmonary edema due to CHF and end-stage renal disease missing dialysis. Review of Systems Review of Systems: 12 systems were reviewed and are negativ e except for as per HPI. [facility] Past Medical History Medical History Chronic hypoxemic respiratory failure Peripheral neuropathy Pacemaker Cataracts, bilateral Type 2 diabetes mellitus with diabetic nephropathy Onychomycosis Melanemia Laryngospasms Ischemic cardiomyopathy Hemoptysis Essential hypertension DM renal manif type II, uncontrolled Chronic diastolic congestive heart failure Body mass index (BMI) greater than 30 (01/18/19) Dialysis patient Insulin dependent type 2 diabetes mellitus Stage 5 chronic kidney disease Duodenal ulcer (11/2021) History of colon polyps Chronic anemia Orthostasis Related to autonomic dysfunction from his diabetes. Benign prostatic hyperplasia Chronic obstructive pulmonary disease Diastolic congestive heart failure Echocardiogram on 01/31/2021 showed normal LV systolic function with moderately increased LV wall thickness and grade 1 diastolic dysfunction with an EF estimated 55%. Cerumen impaction Hyperlipidemia, unspecified Coronary artery disease Catheterization and 2006 showed a chronically occluded RCA. In 2017 he had a drug-eluting stent to the proximal left anterior descending. Hypertension Surgical History Surgical History History of right above knee amputation History of right below knee amputation S/P AKA (above knee amputation) unilateral Right 2022 H/O colonoscopy with polypectomy History of esophagogastroduodenoscopy Status post creation of arteriovenous fistula History of eye surgery Laser eye surgery. History of ankle surgery Left ORIF Status post insertion of drug-eluting stent into left anterior descending (LAD) artery for coronary artery disease Status post cardiac pacemaker procedure His 1st pacemaker was placed in his 30s for sinus pause, syncope and bradycardia and he had generator changes in 2002, 2006, and 2011. His RV lead has high thresholds and he was not pacing in also it was turned off. Family History Family History Father Family history of premature coronary heart disease, Onset Age: 53 Cerebrovascular accident Patient's father is Diabetes mellitus Hypertension Family history of cardiovascular disease Kidney disease Sibling Carcinoma of colon, Onset Age: 39 Mother Patient's mother is , Onset Age: 73 Social History Social History Social History: He still lives with Tabatha at home. His decision maker is anyone of his 3 children mainly Adele. Advanced directives is on chart. Patient wishes to be a full code at this time however does not want any life- sustaining measures for an excessive amount of time. 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 Surrogate decision maker: Lidia Morris, daughter. Code status: Full code. Smoking status: Never smoker Smoking end date: 06/15/84 Additional smoking assessment comments: Smoked briefly as a teenager. Alcohol intake: never Substance use: never Substance use type: does not use Do You Feel Safe in your Home?: Yes Lack of Transportation: No Lack of Food: Never True Current Housing: I Have Housing Concerned About Future Housing: No Difficulty Paying Gas/Electric Bills: No Difficulty Paying for Meds: No Currently Unemployed: No Education: High School Diploma/GED Difficulty w/ Childcare or Family Care: No Living arrangements: with family Additional living arrangements comments: The patient lives with his , Tabatha, who suffers from dementia. 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 Gender identity (if verbalized by the patient): Male Sexual Orientation (if Verbalized by the Patient): Straight or Heterosexual Spiritual care concerns: No Agree to blood products: Yes Meds Home Medications and Allergies Home Medications ?Medication ?Instructions ?Recorded ?Confirmed ?Type clopidogrel 75 mg tablet (Plavix) 75 mg PO DAILY #90 tabs 08/21/21 01/12/25 Rx ezetimibe 10 mg tablet 10 mg PO DAILY 01/02/22 01/12/25 History multivitamin 1 tablet PO DAILY 02/11/23 01/12/25 History omega 2-kza-uoz-fish oil 1,000 mg 1 cap PO DAILY 02/11/23 01/12/25 History (120 mg-180 mg) capsule (Fish Oil) cholecalciferol (vitamin D3) 25 125 mcg PO DAILY 04/09/23 01/12/25 History mcg (1,000 unit) capsule calcium acetate(phosphat bind) 667 667 mg PO TIDWM #270 caps 10/12/23 01/12/25 Rx mg capsule furosemide 80 mg tablet 80 mg PO QAM #90 tabs 12/10/23 01/12/25 Rx pen needle, diabetic 32 gauge x #400 ea 12/14/23 01/12/25 Rx 5/32 (BD Ultra-Fine Carla Pen Needle) albuterol sulfate 90 mcg/actuation 1 inh inhalation Q4H PRN shortness 12/28/23 01/12/25 Rx aerosol inhaler of breath or wheezing #8.5 grams insulin aspart U-100 100 unit/mL See Rx Instructions subcut 07/11/24 01/12/25 Rx (3 mL) subcutaneous pen (Novolog USEASDIRECTD 3 months #45 mL FlexPen U-100 Insulin aspart) insulin degludec 100 unit/mL (3 25 unit (0.25 mL) subcut DAILY 3 07/11/24 01/12/25 Rx mL) subcutaneous pen (Tresiba months #24 mL FlexTouch U-100 insulin) carvedilol 25 mg tablet 25 mg PO Q12H #180 tabs 10/25/24 01/12/25 Rx allopurinol 100 mg tablet 100 mg PO DAILY #90 tabs 10/31/24 01/12/25 Rx atorvastatin 80 mg tablet 80 mg PO HS #90 tabs 12/19/24 01/12/25 Rx dulaglutide 1.5 mg/0.5 mL 1.5 mg subcut WEEKLY 01/12/25 01/12/25 History subcutaneous pen injector (Trulicity) gabapentin 100 mg capsule 100 mg PO DAILY 01/12/25 01/12/25 History irbesartan 150 mg tablet 150 mg PO DAILY 01/12/25 01/12/25 History isosorbide dinitrate 5 mg tablet 5 mg PO BID 01/12/25 01/12/25 History (Isordil Titradose) nitroglycerin 0.4 mg sublingual 0.4 mg sublingual Q5-15M PRN chest 01/12/25 01/12/25 History tablet pain pantoprazole 40 mg tablet,delayed 40 mg PO QAM 01/12/25 01/12/25 History release (Protonix) prednisolone acetate 1 % eye 1 drp EACH EYE Q12H 01/12/25 01/12/25 History drops,suspension Allergies Allergy/AdvReac Type Severity Reaction Status Date / Time Iodinated Contrast Media Allergy Unknown Hives Verified 01/12/25 15:55 lisinopril AdvReac Cough Verified 01/12/25 15:55 Vital Signs Vital Signs - 24 hr 01/12/25 10:04 01/12/25 10:31 01/12/25 10:31 Pulse Rate 91 94 92 Respiratory Rate 22 H 19 25 H Blood Pressure 160/62 H 135/79 Pulse Oximetry 94 100 Oxygen Delivery Nasal Cannula Oxygen Flow Rate 2 01/12/25 10:32 01/12/25 10:36 01/12/25 11:12 Pulse Rate 93 84 Respiratory Rate 20 Blood Pressure Pulse Oximetry 93 Oxygen Delivery Nasal Cannula Oxygen Flow Rate 2 01/12/25 11:12 01/12/25 11:57 01/12/25 14:00 Pulse Rate 94 89 Respiratory Rate 18 14 Blood Pressure 155/71 H 175/68 H Pulse Oximetry 99 95 96 Oxygen Delivery Nasal Cannula Oxygen Flow Rate 2 01/12/25 14:59 Pulse Rate 89 Respiratory Rate 17 Blood Pressure Pulse Oximetry 100 Oxygen Delivery Oxygen Flow Rate Exam Narrative: General: well appearing, appears stated age. HEENT: normocephalic, atraumatic. Mucous membranes moist. EOMI, PERRLA, bilateral sclera anicteric, no conjunctival injection. Neck supple without JVD, lymphadenopathy, or bruit. Respiratory: clear to ascultation bilaterally. No rales/rhonic/wheezes. Cardiovascular: Regular rate and rhythm, normal S1-S2 upon ascultation. No murmurs, rubs, or clicks. PMI is nondisplaced, capillary refill less than 3 second. Abdomen: Soft, round, no pulsatile masses, nondistended and nontender. No rebound, no guarding. No CVA tenderness, no hepatosplenomegaly. Bowel sounds present to all four quadrants. No high pitch or tinkling sounds, resonant to percussion. Extremities: No cyanosis, clubbing, or edema present. Pulses are palpable 2/2. Active ROM to all four extremities. Neuro: Alert and orientated x 4. PERRLA. Cranial nerves 2-12 intact without focal deficit. Skin: Warm, dry, and intact, without rash, erythema, or lesion. Psych: pleasant, cooperative, normal speech, normal affect, no hallucinations, no dysarthia H&P: Results Labs Labs: Short CBC 01/12/25 Range/Units 11:09 WBC 10.7 H (4.5-10.0) K/mm3 Hgb 10.1 L (14.0-18.0) g/dL Hct 31.2 L (42.0-52.0) % Plt Count 166 (150-375) k/mm3 BMP 01/12/25 01/12/25 01/12/25 11:09 11:09 11:09 Sodium Cancelled 138 Potassium Cancelled 5.0 Chloride Cancelled Carbon Dioxide BUN Creatinine Glucose Calcium 01/12/25 01/12/25 01/12/25 11:09 11:09 11:09 Sodium Potassium Chloride 99 Carbon Dioxide Cancelled 32 H BUN Cancelled 31 H Creatinine Cancelled Glucose Calcium 01/12/25 01/12/25 01/12/25 11:09 11:09 11:09 Sodium Potassium Chloride Carbon Dioxide BUN Creatinine 4.27 H Glucose Cancelled 111 H Calcium Cancelled 8.9 Liver Function 01/12/25 01/12/25 01/12/25 Range/Units 11:09 11:09 11:09 Total Bilirubin Cancelled 1.1 AST Cancelled 32 ALT Cancelled Alkaline Phosphatase Albumin 01/12/25 01/12/25 01/12/25 Range/Units 11:09 11:09 11:09 Total Bilirubin AST ALT 19 Alkaline Phosphatase Cancelled 76 Albumin Cancelled 4.1 Assessment and Plan Assessment and plan (1) ESRD needing dialysis: Code(s): N18.6 - End stage renal disease; Z99.2 - Dependence on renal dialysis Status: Acute Assessment and Plan: Fluid overload Dialysis Thursday Nephrology consulted Dialysis tonight Repeat labs in the morning Continue phosphate binders (2) Pneumonia: Qualifiers: Laterality: unspecified laterality Lung location: unspecified part of lung Pneumonia type: due to unspecified organism Qualified Code(s): J18.9 - Pneumonia, unspecified organism Code(s): J18.9 - Pneumonia, unspecified organism Status: Acute Assessment and Plan: Azithromycin and Rocephin Guaifenesin DuoNebs (3) Diastolic congestive heart failure: Qualifiers: Heart failure chronicity: unspecified Qualified Code(s): I50.30 - Unspecified diastolic (congestive) heart failure Code(s): I50.30 - Unspecified diastolic (congestive) heart failure Status: Acute Assessment and Plan: HD Thursday Pulmonary edema on x-ray IV Lasix x1 Dialysis Continue p.o. Lasix tomorrow (4) Type 2 diabetes mellitus: Qualifiers: Diabetes mellitus complication status: with hyperglycemia Diabetes mellitus technician terminal and repeater insulin use: with technician terminal and repeater use Qualified Code(s): E11.65 - Type 2 diabetes mellitus with hyperglycemia; Z79.4 - technician terminal and repeater (current) use of insulin Code(s): E11.9 - Type 2 diabetes mellitus without complications Status: Acute Assessment and Plan: Diabetic renal diet Warneru-Lakesha lion HS SSI and Rejius Continue Zetia (5) Coronary artery disease: Qualifiers: Associated angina: without angina Coronary Disease-Associated Artery/Lesion type: [place] artery [place] vs. transplanted heart: [place] heart Qualified Code(s): I25.10 - Atherosclerotic heart disease of [place] coronary artery without angina pectoris Code(s): I25.10 - Atherosclerotic heart disease of [place] coronary artery without angina pectoris Status: Chronic Assessment and Plan: Continue Lipitor, Zetia, isosorbide, nitro, and carvedilol Quality VTE Prophylaxis VTE prophylaxis: mechanical ordered Hospitalist MIPS Advance Care Plan I have confirmed that the patient's Advanced Care Plan is present, code status is documented, or surrogate decision maker is listed in patient medical record.: Yes Medication Reconciliation I have utilized all available resources to obtain, update and review the patients current medications (includes all prescriptions, OTC, herbals, cannabis, and nutritional supplements).: Yes
[2025-01-12] MEDS: FUROSEMIDE INJ 100 MG/10 ML VIAL 80 MG IV PUSH (17:41)
[2025-01-12] MEDS: ISOSORBIDE DINITRATE 5 MG TABLET PO (22:26)
[2025-01-12] MEDS: prednisoLONE ACETATE 1% OPHTH 5 ML 1 DROP EACH EYE (22:26)
[2025-01-12] MEDS: ATORVASTATIN 40 MG TABLET 80 MG PO (22:26)
[2025-01-13] VITALS (32 sets, daily range): BP systolic 114–160; BP diastolic 53–84; PULSE 76–88; RESP 17–20; TEMP 36.3–36.9; O2SAT 92–98
[2025-01-13] MEDS: IPRATROPIUM 0.5 MG/ALBUTEROL SULFATE 2.5 MG AMPUL.NEB 3 ML INHALATION ×4 (01:32→20:54)
[2025-01-13 05:14] LABS: Hematocrit 28.4 % (42.0-52.0); Hemoglobin 9.2 g/dL (14.0-18.0); Immature Granulocyte Percent A 0.3 % (0-0.5); Lymphocytes Absolute Auto 1.82 K/mm3 (0.9-3.2); Mean Corpuscular HGB Conc 32.4 g/dl (32-36); Mean Corpuscular Hemoglobin 33.3 pg (26-34); Mean Corpuscular Volume 102.9 fl (80-100); Nucleated Red Blood Cells Absolute Auto 0.000 K/mm3 (0.0-0.012); Nucleated Red Blood Cells Perc 0.0 % (0.0-0.2); Platelet Count Result 154 k/mm3 (150-375); Red Blood Count 2.76 M/mm3 (4.6-6.20); White Blood Count 7.5 K/mm3 (4.5-10.0)
[2025-01-13 05:38] LABS: Alanine Aminotransferase 15 U/L (6-50); Albumin Level 3.5 g/dL (3.5-5.1); Alkaline Phosphatase 63 U/L (38-126); Anion Gap 9 mmol/L (4-12); Aspartate Amino Transferase 26 U/L (17-59); Bilirubin,Total 0.8 mg/dL (0.2-1.3); Blood Urea Nitrogen 45 mg/dL (9-20); Calcium 8.6 mg/dL (8.4-10.2); Carbon Dioxide 30 mmol/L (22-30); Chloride 100 mmol/L (98-107); Estimated CRCL calculation 11 ml/min; Estimated Glomerular Filt Rate 9; Glucose 106 mg/dL (65-110); Magnesium 2.1 mg/dL (1.6-2.3); Potassium 4.8 mmol/L (3.4-5.0); Sodium 139 mmol/L (137-145); Total Protein 6.8 g/dL (6.3-8.2)
--- NOTE | 2025-01-13 07:14 | P.PNIM_ITS ---
Progress Note: A&P Assessment and Plan (1) ESRD needing dialysis: Code(s): N18.6 - End stage renal disease; Z99.2 - Dependence on renal dialysis Status: Acute Assessment and Plan: * Fluid overload on exam upon admission * Dialysis T/T/S * Nephrology consulted, appreciate further recommendations * HD on 01/12 - will likely go for another session today 01/13 * Continue phosphate binders * Monitor daily labs * Nephrology consult - appreciate further recommendations (2) Pneumonia: Qualifiers: Laterality: unspecified laterality Lung location: unspecified part of lung Pneumonia type: due to unspecified organism Qualified Code(s): J18.9 - Pneumonia, unspecified organism Code(s): J18.9 - Pneumonia, unspecified organism Status: Acute Assessment and Plan: * CXR: Bibasilar airspace disease with crowding of the pulmonary vessels due to low lung lines. Considerations include edema, atelectasis and/or pneumonia. * started on CAP tx: azithromycin & ceftriaxone * Viral PCR: negative for Flu/COVID/RSV * Consider ordering legionella, mycoplasma and pneumococcal * no supplemental O2 requirement * supportive treatment * trend labs * Monitor vital signs, I&Os, neuro status and patient is a fall risk * Follow WBC, serum electrolytes, temperature curves and cultures * Send sputum cultures * Gentle IV fluid resuscitation * Guaifenesin * DuoNebs (3) Diastolic congestive heart failure: Qualifiers: Heart failure chronicity: unspecified Qualified Code(s): I50.30 - Unspecified diastolic (congestive) heart failure Code(s): I50.30 - Unspecified diastolic (congestive) heart failure Status: Acute Assessment and Plan: * HD Thursday * Pulmonary edema on x-ray * IV Lasix x1 * Dialysis * Continue p.o. Lasix tomorrow (4) Type 2 diabetes mellitus: Qualifiers: Diabetes mellitus complication status: with hyperglycemia Diabetes mellitus nursing home insulin use: with nursing home use Qualified Code(s): E11.65 - Type 2 diabetes mellitus with hyperglycemia; Z79.4 - [facility] (current) use of insulin Code(s): E11.9 - Type 2 diabetes mellitus without complications Status: Acute Assessment and Plan: * Diabetic renal diet * Accu-Cheks a.c. HS * SSI and Lantus * Continue Zetia (5) Coronary artery disease: Qualifiers: Associated angina: without angina Coronary Disease-Associated Artery/Lesion type: koi artery [place] vs. transplanted heart: koi heart Qualified Code(s): I25.10 - Atherosclerotic heart disease of koi coronary artery without angina pectoris Code(s): I25.10 - Atherosclerotic heart disease of koi coronary artery without angina pectoris Status: Chronic Assessment and Plan: * Continue Lipitor, Zetia, isosorbide, nitro, and carvedilol Subjective Date/time seen: 01/13/25 07:14 Interval history: 69-year-old male past medical history of COPD, diabetes type 2, hypertension, end-stage renal disease on dialysis and CAD presents the hospital with shortness of breath. 01/13/2025 Patient sitting comfortably in bed at time of exam. Denies chest pain, shortness of breath, n/v, abd pain at this time. Planning for dialysis today @ 1pm. Nephro consult pending - appreciate further recommendations. Continue antibiotics for pneumonia. Blood work and vitals remain stable. Pt otherwise has no complaints/concerns - states he feels much better than yesterday. Will order PT/OT. Review of Systems Review of Systems: 12 systems were reviewed and are negativ e except for as per HPI. Exam Narrative: General: well appearing, appears stated age. HEENT: normocephalic, atraumatic. Mucous membranes moist. EOMI, PERRLA, bilateral sclera anicteric, no conjunctival injection. Neck supple without JVD, lymphadenopathy, or bruit. Respiratory: clear to ascultation bilaterally. No rales/rhonic/wheezes. Cardiovascular: Regular rate and rhythm, normal S1-S2 upon ascultation. No murmurs, rubs, or clicks. PMI is nondisplaced, capillary refill less than 3 second. Abdomen: Soft, round, no pulsatile masses, nondistended and nontender. No rebound, no guarding. No CVA tenderness, no hepatosplenomegaly. Bowel sounds present to all four quadrants. No high pitch or tinkling sounds, resonant to percussion. Extremities: No cyanosis, clubbing, or edema present. Pulses are palpable 2/2. Active ROM to all four extremities. Neuro: Alert and orientated x 4. PERRLA. Cranial nerves 2-12 intact without focal deficit. Skin: Warm, dry, and intact, without rash, erythema, or lesion. Psych: pleasant, cooperative, normal speech, normal affect, no hallucinations, no dysarthia Objective Data Vital Signs Vital Signs: Vital Signs - 24 hr 01/12/25 10:04 01/12/25 10:31 01/12/25 10:31 Temperature Pulse Rate 91 94 92 Respiratory Rate 22 H 19 25 H Blood Pressure 160/62 H 135/79 Pulse Oximetry 94 100 Oxygen Delivery Nasal Cannula Oxygen Flow Rate 2 Fraction of Inspired Oxygen 01/12/25 10:32 01/12/25 10:36 01/12/25 11:12 Temperature Pulse Rate 93 84 Respiratory Rate 20 Blood Pressure Pulse Oximetry 93 Oxygen Delivery Nasal Cannula Oxygen Flow Rate 2 Fraction of Inspired Oxygen 01/12/25 11:12 01/12/25 11:57 01/12/25 14:00 Temperature Pulse Rate 94 89 Respiratory Rate 18 14 Blood Pressure 155/71 H 175/68 H Pulse Oximetry 99 95 96 Oxygen Delivery Nasal Cannula Oxygen Flow Rate 2 Fraction of Inspired Oxygen 01/12/25 14:59 01/12/25 16:00 01/12/25 20:00 Temperature Pulse Rate 89 90 89 Respiratory Rate 17 Blood Pressure Pulse Oximetry 100 Oxygen Delivery Oxygen Flow Rate Fraction of Inspired Oxygen 01/12/25 20:23 01/12/25 20:23 01/12/25 21:16 Temperature Pulse Rate 88 88 Respiratory Rate 20 20 Blood Pressure Pulse Oximetry 97 93 Oxygen Delivery Nasal Cannula Nasal Cannula Oxygen Flow Rate 1 2 Fraction of Inspired Oxygen 24 01/12/25 21:22 01/12/25 21:36 01/13/25 00:00 Temperature 98.0 F Pulse Rate 88 88 86 Respiratory Rate 16 Blood Pressure 138/53 L Pulse Oximetry 93 Oxygen Delivery Oxygen Flow Rate Fraction of Inspired Oxygen 01/13/25 01:32 01/13/25 04:00 01/13/25 05:36 Temperature 97.6 F Pulse Rate 88 86 88 Respiratory Rate 20 17 Blood Pressure 143/53 H Pulse Oximetry 93 Oxygen Delivery Oxygen Flow Rate Fraction of Inspired Oxygen Intake/Output Intake/Output: Intake & Output 01/10/25 01/11/25 01/12/25 01/13/25 23:59 23:59 23:59 23:59 Intake Total 240 0 Output Total 0 0 Balance 240 0 Meds/Results Medications: Active Medications Generic Name Dose Route Start Last Admin Trade Name Freq PRN Reason Stop Dose Admin Acetaminophen 650 mg 01/12/25 17:13 Acetaminophen 325 Mg Tablet PO Q4H PRN Mild Pain (1-3) or Fever Hydrocodone Bitart/Acetaminophen 1 tab 01/12/25 14:26 Hydrocodone/Acetaminophen (*Crx) 5-325 Mg Tablet PO Q4H PRN Pain Rated 4-6 Albuterol/Ipratropium 3 ml 01/12/25 20:00 01/13/25 01:32 Ipratropium 0.5 Mg/Albuterol Sulfate 2.5 Mg Ampul.Neb 3 Ml INHALATION 3 ml Q6HRT MADIE Administration Allopurinol 100 mg 01/13/25 09:00 Allopurinol 100 Mg Tablet PO DAILY [facility] Atorvastatin Calcium 80 mg 01/12/25 21:50 01/12/25 22:26 Atorvastatin 40 Mg Tablet PO 80 mg HS MADIE Administration Calcium Acetate 667 mg 01/13/25 08:00 Calcium Acetate 667 Mg Tablet PO TIDWM MADIE Carvedilol 25 mg 01/12/25 21:00 01/12/25 21:36 Carvedilol 25 Mg Tablet PO 25 mg Q12H MADIE Administration Clopidogrel Bisulfate 75 mg 01/13/25 09:00 Clopidogrel Bisulfate 75 Mg Tablet PO DAILY [facility] Dextrose 12.5 gm 01/12/25 17:13 Dextrose 50% 25 Gm/50 Ml Syringe IV PUSH PRN PRN Hypoglycemia Protocol Docusate Sodium 100 mg 01/12/25 17:13 Docusate Sodium 100 Mg Capsule PO BID PRN Constipation Ezetimibe 10 mg 01/13/25 09:00 Ezetimibe 10 Mg Tablet PO DAILY [facility] Epoetin Patel-epbx 10,000 units 01/13/25 18:44 Epoetin Patel-Epbx 10,000 Units/Ml Vial IV PUSH 01/13/25 18:45 ONCE ONE Furosemide 80 mg 01/13/25 09:00 Furosemide 80 Mg Tablet PO QAM [facility] Gabapentin 100 mg 01/13/25 09:00 Gabapentin 100 Mg Capsule PO DAILY [facility] Glucagon 1 mg 01/12/25 17:13 Glucagon For Inj 1 Mg Vial IM PRN PRN Hypoglycemia Protocol Glucose 15 gm 01/12/25 17:13 Glucose Oral Gel 15 Gm Of Glucse In 37.5 Gm Tube PO PRN PRN Hypoglycemia Protocol Ceftriaxone Sodium 1 gm/ 50 mls @ 100 mls/hr 01/13/25 16:00 Sodium Chloride IVPB Q24H MADIE Azithromycin 500 mg/ Sodium 250 mls @ 250 mls/hr 01/13/25 17:00 Chloride IVPB 01/16/25 17:59 Q24H MADIE Dextrose 1,000 mls @ 100 mls/hr 01/12/25 17:13 Dextrose 5% 1,000 Ml IVPB PRN PRN Hypoglycemia Protocol Albumin Human 50 mls @ 999 mls/hr 01/13/25 06:44 Albutein IVPB 02/12/25 06:43 Q10M PRN HYPOTENSION Sodium Chloride 1,000 mls @ 999 mls/hr 01/13/25 06:44 Normal Saline Iv IV CONT 01/13/25 07:44 .Q1H1M ONE Insulin Aspart 2 - 5 units 01/13/25 08:00 Insulin Aspart (*Bkc) 100 Units/Ml SUB-Q TIDWM [facility] Protocol Insulin Aspart 1 - 2 units 01/12/25 21:00 01/12/25 21:34 Insulin Aspart (*Bkc) 100 Units/Ml SUB-Q Not Given HS [facility] Protocol Insulin Glargine 25 units 01/12/25 21:50 01/12/25 22:35 Insulin Glargine (*Bkc) 100 Units/Ml SUB-Q Not Given HS [facility] Irbesartan 150 mg 01/13/25 09:00 Irbesartan 150 Mg Tablet PO DAILY [facility] Isosorbide Dinitrate 5 mg 01/12/25 21:50 01/12/25 22:26 Isosorbide Dinitrate 5 Mg Tablet PO 5 mg BID MADIE Administration Methocarbamol 500 mg 01/12/25 21:43 Methocarbamol 500 Mg Tablet PO QID PRN Muscle spasms Morphine Sulfate 2 mg 01/12/25 14:26 Morphine Sulfate (*Crx) 2 Mg/Ml Inj IV PUSH Q2H PRN Pain Rated 7-10 Nitroglycerin 0.4 mg 01/12/25 21:38 Nitroglycerin Sl 0.4 Mg Tablet SUBLINGUAL Q5MIN PRN chest pain Pantoprazole Sodium 40 mg 01/13/25 09:00 Pantoprazole 40 Mg Tablet PO QAM MADIE Prednisolone Acetate 1 drop 01/12/25 21:40 01/12/25 22:26 Prednisolone Acetate 1% Ophth 5 Ml EACH EYE 1 drop Q12HR [facility] Administration Promethazine HCl 12.5 mg 01/12/25 14:26 Promethazine Hcl 25 Mg/Ml Ampul IV PUSH Q6H PRN Nausea Vitamin D 125 mcg 01/13/25 09:00 Cholecalciferol (Vitamin D3) 125 Mcg (5,000 Units) Tablet PO DAILY [facility] Radiology Results: ITS Impressions Chest X-Ray 01/12/25 10:53 Impression: 1: Bibasilar airspace disease with crowding of the pulmonary vessels due to low lung lines. Considerations include edema, atelectasis and/or pneumonia. Labs Labs: Laboratory Results - last 24 hr 01/12/25 01/12/25 01/12/25 10:39 11:09 11:09 WBC 10.7 H RBC 3.00 L Hgb 10.1 L Hct 31.2 L MCV 104.0 H MCH 33.7 MCHC 32.4 RDW 13.9 Plt Count 166 MPV 9.4 Immature Gran % (Auto) 0.6 H Neut % (Auto) 77.4 H Lymph % (Auto) 11.8 L Ogle % (Auto) 9.9 H Eos % (Auto) 0.0 Baso % (Auto) 0.3 Lymph # (Auto) 1.26 Ogle # (Auto) 1.1 H Eos # (Auto) 0.0 Baso # (Auto) 0.0 Abs Immat Gran (auto) 0.06 H Absolute Neuts (auto) 8.3 H Absolute Nucleated RBC 0.000 Nucleated RBC % 0.0 Sodium Cancelled 138 Potassium Cancelled Chloride Carbon Dioxide Anion Gap BUN Creatinine Estim Creat Clear Calc Estimated GFR Glucose POC Capillary Glucose 112 H Calcium Phosphorus Magnesium Total Bilirubin AST ALT Alkaline Phosphatase NT-Pro-B Natriuret Pep Total Protein Albumin 01/12/25 01/12/25 01/12/25 11:09 11:09 11:09 WBC RBC Hgb Hct MCV MCH MCHC RDW Plt Count MPV Immature Gran % (Auto) Neut % (Auto) Lymph % (Auto) Ogle % (Auto) Eos % (Auto) Baso % (Auto) Lymph # (Auto) Ogle # (Auto) Eos # (Auto) Baso # (Auto) Abs Immat Gran (auto) Absolute Neuts (auto) Absolute Nucleated RBC Nucleated RBC % Sodium Potassium 5.0 Chloride Cancelled 99 Carbon Dioxide Cancelled 32 H Anion Gap Cancelled BUN Creatinine Estim Creat Clear Calc Estimated GFR Glucose POC Capillary Glucose Calcium Phosphorus Magnesium Total Bilirubin AST ALT Alkaline Phosphatase NT-Pro-B Natriuret Pep Total Protein Albumin 01/12/25 01/12/25 01/12/25 11:09 11:09 11:09 WBC RBC Hgb Hct MCV MCH MCHC RDW Plt Count MPV Immature Gran % (Auto) Neut % (Auto) Lymph % (Auto) Ogle % (Auto) Eos % (Auto) Baso % (Auto) Lymph # (Auto) Ogle # (Auto) Eos # (Auto) Baso # (Auto) Abs Immat Gran (auto) Absolute Neuts (auto) Absolute Nucleated RBC Nucleated RBC % Sodium Potassium Chloride Carbon Dioxide Anion Gap 7 BUN Cancelled 31 H Creatinine Cancelled 4.27 H Estim Creat Clear Calc Cancelled Estimated GFR Glucose POC Capillary Glucose Calcium Phosphorus Magnesium Total Bilirubin AST ALT Alkaline Phosphatase NT-Pro-B Natriuret Pep Total Protein Albumin 01/12/25 01/12/25 01/12/25 11:09 11:09 11:09 WBC RBC Hgb Hct MCV MCH MCHC RDW Plt Count MPV Immature Gran % (Auto) Neut % (Auto) Lymph % (Auto) Ogle % (Auto) Eos % (Auto) Baso % (Auto) Lymph # (Auto) Ogle # (Auto) Eos # (Auto) Baso # (Auto) Abs Immat Gran (auto) Absolute Neuts (auto) Absolute Nucleated RBC Nucleated RBC % Sodium Potassium Chloride Carbon Dioxide Anion Gap BUN Creatinine Estim Creat Clear Calc 15 Estimated GFR Cancelled 14 L Glucose Cancelled 111 H POC Capillary Glucose Calcium Cancelled Phosphorus Magnesium Total Bilirubin AST ALT Alkaline Phosphatase NT-Pro-B Natriuret Pep Total Protein Albumin 01/12/25 01/12/25 01/12/25 11:09 11:09 11:09 WBC RBC Hgb Hct MCV MCH MCHC RDW Plt Count MPV Immature Gran % (Auto) Neut % (Auto) Lymph % (Auto) Ogle % (Auto) Eos % (Auto) Baso % (Auto) Lymph # (Auto) Ogle # (Auto) Eos # (Auto) Baso # (Auto) Abs Immat Gran (auto) Absolute Neuts (auto) Absolute Nucleated RBC Nucleated RBC % Sodium Potassium Chloride Carbon Dioxide Anion Gap BUN Creatinine Estim Creat Clear Calc Estimated GFR Glucose POC Capillary Glucose Calcium 8.9 Phosphorus Magnesium Total Bilirubin Cancelled 1.1 AST Cancelled 32 ALT Cancelled Alkaline Phosphatase NT-Pro-B Natriuret Pep Total Protein Albumin 01/12/25 01/12/25 01/12/25 11:09 11:09 11:09 WBC RBC Hgb Hct MCV MCH MCHC RDW Plt Count MPV Immature Gran % (Auto) Neut % (Auto) Lymph % (Auto) Ogle % (Auto) Eos % (Auto) Baso % (Auto) Lymph # (Auto) Ogle # (Auto) Eos # (Auto) Baso # (Auto) Abs Immat Gran (auto) Absolute Neuts (auto) Absolute Nucleated RBC Nucleated RBC % Sodium Potassium Chloride Carbon Dioxide Anion Gap BUN Creatinine Estim Creat Clear Calc Estimated GFR Glucose POC Capillary Glucose Calcium Phosphorus Magnesium Total Bilirubin AST ALT 19 Alkaline Phosphatase Cancelled 76 NT-Pro-B Natriuret Pep 18779 H Total Protein Cancelled 7.8 Albumin Cancelled 01/12/25 01/12/25 01/12/25 11:09 17:00 21:34 WBC RBC Hgb Hct MCV MCH MCHC RDW Plt Count MPV Immature Gran % (Auto) Neut % (Auto) Lymph % (Auto) Ogle % (Auto) Eos % (Auto) Baso % (Auto) Lymph # (Auto) Ogle # (Auto) Eos # (Auto) Baso # (Auto) Abs Immat Gran (auto) Absolute Neuts (auto) Absolute Nucleated RBC Nucleated RBC % Sodium Potassium Chloride Carbon Dioxide Anion Gap BUN Creatinine Estim Creat Clear Calc Estimated GFR Glucose POC Capillary Glucose 217 H 136 H Calcium Phosphorus Magnesium Total Bilirubin AST ALT Alkaline Phosphatase NT-Pro-B Natriuret Pep Total Protein Albumin 4.1 01/13/25 04:52 WBC 7.5 RBC 2.76 L Hgb 9.2 L Hct 28.4 L MCV 102.9 H MCH 33.3 MCHC 32.4 RDW 13.7 Plt Count 154 MPV 9.7 Immature Gran % (Auto) 0.3 Neut % (Auto) 64.3 Lymph % (Auto) 24.2 Ogle % (Auto) 10.9 H Eos % (Auto) 0.0 Baso % (Auto) 0.3 Lymph # (Auto) 1.82 Ogle # (Auto) 0.8 H Eos # (Auto) 0.0 Baso # (Auto) 0.0 Abs Immat Gran (auto) 0.02 Absolute Neuts (auto) 4.9 Absolute Nucleated RBC 0.000 Nucleated RBC % 0.0 Sodium 139 Potassium 4.8 Chloride 100 Carbon Dioxide 30 Anion Gap 9 BUN 45 H D Creatinine 5.92 H Estim Creat Clear Calc 11 Estimated GFR 9 L Glucose 106 POC Capillary Glucose Calcium 8.6 Phosphorus 3.5 Magnesium 2.1 Total Bilirubin 0.8 AST 26 ALT 15 Alkaline Phosphatase 63 NT-Pro-B Natriuret Pep Total Protein 6.8 Albumin 3.5 Quality VTE Prophylaxis VTE prophylaxis: mechanical ordered
[2025-01-13] MEDS: FUROSEMIDE 80 MG TABLET PO (08:18)
[2025-01-13] MEDS: ISOSORBIDE DINITRATE 5 MG TABLET PO ×2 (08:18→17:23)
[2025-01-13] MEDS: CHOLECALCIFEROL (VITAMIN D3) 125 MCG (5,000 UNITS) TABLET PO (08:18)
[2025-01-13] MEDS: PANTOPRAZOLE 40 MG TABLET PO (08:18)
[2025-01-13] MEDS: GABAPENTIN 100 MG CAPSULE PO (08:19)
[2025-01-13] MEDS: IRBESARTAN 150 MG TABLET PO (08:19)
[2025-01-13] MEDS: EZETIMIBE 10 MG TABLET PO (08:19)
[2025-01-13] MEDS: CLOPIDOGREL BISULFATE 75 MG TABLET PO (08:19)
[2025-01-13] MEDS: CALCIUM ACETATE 667 MG TABLET PO ×3 (08:25→17:23)
[2025-01-13 08:53] LABS: Hepatitis B Surface Antigen Negative (Negative)
[2025-01-13 09:10] LABS: Hepatitis B Surface Anti Res Negative
[2025-01-13] MEDS: prednisoLONE ACETATE 1% OPHTH 5 ML 1 DROP EACH EYE ×2 (09:55→22:05)
[2025-01-13 11:09] LABS: MRSA (PCR) NOT DETECTED (NOT DETECTE)
--- NOTE | 2025-01-13 14:10 | P.CONNP_ITS ---
Assessment and Plan Assessment and plan (1) End stage renal disease: Code(s): N18.6 - End stage renal disease Status: Chronic Assessment and Plan: * HD tomorrow * continue dialysis schedule of T/T/S while hospitalized * follow electrolytes, volume status, and clearance (2) Acute hypoxic respiratory failure: Code(s): J96.01 - Acute respiratory failure with hypoxia Status: Acute Assessment and Plan: * as noted on presentation * suspect multifactorial etiology: * pneumonia * mild fluid overload * diastolic heart failure * missed HD treatment this week * COPD * wean supplemental oxygen as tolerated * continue current therapy as outlined (3) Pneumonia: Code(s): J18.9 - Pneumonia, unspecified organism Status: Acute Assessment and Plan: * as suggested by admission imaging: * CXR with bibasilar airspace disease with crowding of the pulmonary vessels due to low lung lines * viral testing for influenza/RSV/COVID negative * follow culture data * on antibiotics (4) Chronic diastolic heart failure: Code(s): I50.32 - Chronic diastolic (congestive) heart failure Status: Acute Assessment and Plan: * first noted in 2020 * compensated with fluid removal with dialysis * mild fluid overload/exacerbation due to missed treatment (on 01/10) * plan DUF session today for further fluid removal * continue supportive therapy (5) Anemia: Qualifiers: Anemia type: unspecified type Qualified Code(s): D64.9 - Anemia, unspecified Code(s): D64.9 - Anemia, unspecified Status: Chronic Assessment and Plan: * due to ESRD * Epogen with HD * follow trend of H/H (6) Hypertension: Qualifiers: Hypertension type: primary hypertension Qualified Code(s): I10 - Essential (primary) hypertension Code(s): I10 - Essential (primary) hypertension Status: Chronic Assessment and Plan: * reasonable control at this time * follow trend of hemodynamics (7) Chronic obstructive pulmonary disease: Qualifiers: COPD type: emphysema Emphysema type: unspecified Qualified Code(s): J 43.9 - Emphysema, unspecified Code(s): J44.9 - Chronic obstructive pulmonary disease, unspecified Status: Chronic Assessment and Plan: * no evidence of acute exacerbation * maybe partly playing a role with #2 (8) Insulin dependent type 2 diabetes mellitus: Code(s): E11.9 - Type 2 diabetes mellitus without complications; 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 Thank you for allowing me to participate in the care this patient. L History of Present Illness Reason for Consult Consult date: 01/13/25 Reason for consult: end stage renal disease Chief Complaint Chief complaint: Hypoxia/Pneumonia/Pulmonary Edema History of Present Illness Narrative: The patient is a 69-year-old male with a past medical history as outlined below who presented to [facility] Emergency Room with complaints of shortness of breath and hypoxia. The patient presented to his outpatient dialysis unit yesterday for his scheduled treatment. At that time, the dialysis nursing staff noted he was a bit short of breath an on assessment, noted he was hypoxic. Supplemental oxygen was applied which improved his oxygen saturations. As apparently he missed his dialysis treatment on Thursday due to transportation issues, more aggressive ultrafiltration / fluid removal with dialysis yesterday was instituted in the hopes that this would improve his respiratory status and hypoxia. He tolerated the aggressive ultrafiltration with approximately 2.5 L fluid removal and was under his dry weight following his dialysis treatment but he remained hypoxic and slightly short of breath. Hence, he presented to the emergency room for further assessment. Workup and evaluation emergency room demonstrated the patient be hemodynamically stable and confirmed his hypoxia. Routine blood work was significant for a white blood cell count of 10.7, hemoglobin 10.1, and a chemistry panel that was consistent with his known history of end-stage renal disease without any critical electrolyte abnormalities. [place] 82000 and viral testing was negative. His chest x-ray demonstrated evidence of possible pneumonia and/or pulmonary edema. After appropriate cultures were obtained, he was started on antibiotics for his presumed pneumonia and subsequently admitted to the hospital for further evaluation therapy. Since his admission, he remains on supplemental oxygen but he states that his breathing does seem to be doing a bit better in general but still not back to baseline. Renal consultation was requested due to his end-stage renal disease. The patient normally dialyzed on a Thursday, , Thursday dialysis schedule at [facility] under the care of Dr. Shahzad Paiz. From a dialysis perspective, he has been doing reasonably well and is compliant with his treatments. However, as noted above, he did miss his Thursday treatment earlier this week due to transportation issues and his last dialysis treatment was yesterday, . Since he missed his dialysis treatment on Thursday and given his hypoxia, more aggressive ultrafiltration was instituted with ~ 2.5L fluid removal but despite this, his hypoxia persisted as noted above. Currently, at the time my visit, he does not appear to be in acute distress and is tolerating dry ultrafiltration session at this time (seen on DUF at 2:00pm). Review of Systems 2 Review of Systems: As per HPI. [facility] Past Medical History Medical History Chronic hypoxemic respiratory failure Peripheral neuropathy Pacemaker Cataracts, bilateral Type 2 diabetes mellitus with diabetic nephropathy Onychomycosis Melanemia Laryngospasms Ischemic cardiomyopathy Hemoptysis Essential hypertension DM renal manif type II, uncontrolled Chronic diastolic congestive heart failure Body mass index (BMI) greater than 30 (01/18/19) Dialysis patient Insulin dependent type 2 diabetes mellitus Stage 5 chronic kidney disease Duodenal ulcer (11/2021) History of colon polyps Chronic anemia Orthostasis Related to autonomic dysfunction from his diabetes. Benign prostatic hyperplasia Chronic obstructive pulmonary disease Diastolic congestive heart failure Echocardiogram on 01/31/2021 showed normal LV systolic function with moderately increased LV wall thickness and grade 1 diastolic dysfunction with an EF estimated 55%. Cerumen impaction Hyperlipidemia, unspecified Coronary artery disease Catheterization and 2006 showed a chronically occluded RCA. In 2016 he had a drug-eluting stent to the proximal left anterior descending. Hypertension Surgical History Surgical History History of right above knee amputation History of right below knee amputation S/P AKA (above knee amputation) unilateral Right 2022 H/O colonoscopy with polypectomy History of esophagogastroduodenoscopy Status post creation of arteriovenous fistula History of eye surgery Laser eye surgery. History of ankle surgery Left ORIF Status post insertion of drug-eluting stent into left anterior descending (LAD) artery for coronary artery disease Status post cardiac pacemaker procedure His 1st pacemaker was placed in his 30s for sinus pause, syncope and bradycardia and he had generator changes in 2002, 2006, and 2011. His RV lead has high thresholds and he was not pacing in also it was turned off. Family History Family History Father Family history of premature coronary heart disease, Onset Age: 53 Cerebrovascular accident Patient's father is Diabetes mellitus Hypertension Family history of cardiovascular disease Kidney disease Sibling Carcinoma of colon, Onset Age: 39 Mother Patient's mother is , Onset Age: 73 Social History Social History Social History: He still lives with Tabatha at home. His decision maker is anyone of his 3 children mainly Adele. Advanced directives is on chart. Patient wishes to be a full code at this time however does not want any life- sustaining measures for an excessive amount of time. 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 Surrogate decision maker: Lidia Morris, daughter. Code status: Full code. Smoking status: Never smoker Smoking end date: 06/15/84 Additional smoking assessment comments: Smoked briefly as a teenager. Alcohol intake: never Substance use: never Substance use type: does not use Do You Feel Safe in your Home?: Yes Lack of Transportation: No Lack of Food: Never True Current Housing: I Have Housing Concerned About Future Housing: No Difficulty Paying Gas/Electric Bills: No Difficulty Paying for Meds: No Currently Unemployed: No Education: High School Diploma/GED Difficulty w/ Childcare or Family Care: No Living arrangements: with family Additional living arrangements comments: The patient lives with his , Tabatha, who suffers from dementia. 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 Gender identity (if verbalized by the patient): Male Sexual Orientation (if Verbalized by the Patient): Straight or Heterosexual Spiritual care concerns: No Agree to blood products: Yes Meds Home Medications and Allergies Home Medications ?Medication ?Instructions ?Recorded ?Confirmed ?Type clopidogrel 75 mg tablet (Plavix) 75 mg PO DAILY #90 tabs 08/21/21 01/12/25 Rx ezetimibe 10 mg tablet 10 mg PO DAILY 01/02/22 01/12/25 History multivitamin 1 tablet PO DAILY 02/11/23 01/12/25 History omega 2-xmm-sac-fish oil 1,000 mg 1 cap PO DAILY 02/11/23 01/12/25 History (120 mg-180 mg) capsule (Fish Oil) cholecalciferol (vitamin D3) 25 125 mcg PO DAILY 04/09/23 01/12/25 History mcg (1,000 unit) capsule calcium acetate(phosphat bind) 667 667 mg PO TIDWM #270 caps 10/12/23 01/12/25 Rx mg capsule furosemide 80 mg tablet 80 mg PO QAM #90 tabs 12/10/23 01/12/25 Rx pen needle, diabetic 32 gauge x #400 ea 12/14/23 01/12/25 Rx /32 (BD Ultra-Fine Carla Pen Needle) albuterol sulfate 90 mcg/actuation 1 inh inhalation Q4H PRN shortness 12/28/23 01/12/25 Rx aerosol inhaler of breath or wheezing #8.5 grams insulin aspart U-100 100 unit/mL See Rx Instructions subcut 07/11/24 01/12/25 Rx (3 mL) subcutaneous pen (Novolog USEASDIRECTD 3 months #45 mL FlexPen U-100 Insulin aspart) insulin degludec 100 unit/mL (3 25 unit (0.25 mL) subcut DAILY 3 07/11/24 01/12/25 Rx mL) subcutaneous pen (Tresiba months #24 mL FlexTouch U-100 insulin) carvedilol 25 mg tablet 25 mg PO Q12H #180 tabs 10/25/24 01/12/25 Rx allopurinol 100 mg tablet 100 mg PO DAILY #90 tabs 10/31/24 01/12/25 Rx atorvastatin 80 mg tablet 80 mg PO HS #90 tabs 12/19/24 01/12/25 Rx dulaglutide 1.5 mg/0.5 mL 1.5 mg subcut WEEKLY 01/12/25 01/12/25 History subcutaneous pen injector (Trulicity) gabapentin 100 mg capsule 100 mg PO DAILY 01/12/25 01/12/25 History irbesartan 150 mg tablet 150 mg PO DAILY 01/12/25 01/12/25 History isosorbide dinitrate 5 mg tablet 5 mg PO BID 01/12/25 01/12/25 History (Isordil Titradose) nitroglycerin 0.4 mg sublingual 0.4 mg sublingual Q5-15M PRN chest 01/12/25 01/12/25 History tablet pain pantoprazole 40 mg tablet,delayed 40 mg PO QAM 01/12/25 01/12/25 History release (Protonix) prednisolone acetate 1 % eye 1 drp EACH EYE Q12H 01/12/25 01/12/25 History drops,suspension Allergies Allergy/AdvReac Type Severity Reaction Status Date / Time Iodinated Contrast Media Allergy Unknown Hives Verified 01/12/25 15:55 lisinopril AdvReac Cough Verified 01/12/25 15:55 Vital Signs Vital Signs Temp Pulse Resp BP Pulse Ox O2 Del Method O2 Flow Rate 01/13/25 14:00 83 157/82 H 01/13/25 13:45 83 127/70 01/13/25 13:40 83 127/64 01/13/25 13:40 2 01/13/25 13:06 98.1 F 85 20 126/70 93 01/13/25 08:21 84 20 01/13/25 08:19 80 01/13/25 08:11 84 20 01/13/25 08:11 92 Nasal Cannula 1.5 01/13/25 05:36 97.6 F 88 17 143/53 H 93 01/13/25 04:00 86 01/13/25 01:32 88 20 01/13/25 00:00 86 01/12/25 21:36 88 01/12/25 21:22 98.0 F 88 16 138/53 L 93 01/12/25 21:16 93 Nasal Cannula 2 01/12/25 20:23 88 20 97 Nasal Cannula 1 01/12/25 20:23 88 20 01/12/25 20:00 89 Exam 2 Narrative: GENERAL APPEARANCE: elderly but well developed well nourished male in no acute distress HEENT: normocephalic, atraumatic, normal conjunctiva and sclera, nares patient NECK: no lymphadenopathy, thyromegaly, or JVD MOUTH: normal lips, teeth, and gums CARDIOVASCULAR: RRR, normal S1 and S2, no rub RESPIRATORY: coarse breath sounds ABDOMEN: soft, nontender, nondistended, positive bowel sounds present EXTREMITIES: no evidence of cyanosis, clubbing, trace - 1+ edema; s/p right AKA NEUROLOGICAL: alert and oriented x 3; CN II - XII intact bilaterally; no focal deficits noted Results Lab Results 01/13/25 04:52 01/13/25 04:52 Lab results: Most recent lab results Calcium 8.6 mg/dL (8.4-10.2) 01/13/25 04:52 Phosphorus 3.5 mg/dL (2.5-4.5) 01/13/25 04:52 Magnesium 2.1 mg/dL (1.6-2.3) 01/13/25 04:52
[2025-01-13] MEDS: EPOETIN ALFA-EPBX 10,000 UNITS/ML VIAL 10000 UNITS IV PUSH (16:09)
[2025-01-13] MEDS: AZITHROMYCIN IV 500 MG in SODIUM CHLORIDE 0.9% IV 250 ML IVPB (17:25)
[2025-01-13] MEDS: cefTRIAXone 1 GM in SODIUM CHLORIDE 0.9% IV 50 ML 100 ML IVPB (17:25)
[2025-01-13] MEDS: ATORVASTATIN 40 MG TABLET 80 MG PO (22:02)
[2025-01-13] MEDS: INSULIN ASPART (*BKC) 100 UNITS/ML SUB-Q (22:04)
[2025-01-13] MEDS: INSULIN GLARGINE (*BKC) 100 UNITS/ML 25 UNITS SUB-Q (22:06)
[2025-01-14] VITALS (40 sets, daily range): BP systolic 90–171; BP diastolic 40–105; PULSE 76–92; RESP 18–20; TEMP 36.4–37.4; O2SAT 93–99
[2025-01-14] MEDS: IPRATROPIUM 0.5 MG/ALBUTEROL SULFATE 2.5 MG AMPUL.NEB 3 ML INHALATION ×4 (02:20→20:17)
--- NOTE | 2025-01-14 07:25 | P.PNIM_ITS ---
Progress Note: A&P Assessment and Plan (1) ESRD needing dialysis: Code(s): N18.6 - End stage renal disease; Z99.2 - Dependence on renal dialysis Status: Acute Assessment and Plan: * Fluid overload on exam upon admission * Dialysis T/T/S * Nephrology consulted, appreciate further recommendations * HD on 01/12 - will likely go for another session today 01/13 * Continue phosphate binders * Monitor daily labs * Nephrology consult - appreciate further recommendations (2) Pneumonia: Qualifiers: Laterality: unspecified laterality Lung location: unspecified part of lung Pneumonia type: due to unspecified organism Qualified Code(s): J18.9 - Pneumonia, unspecified organism Code(s): J18.9 - Pneumonia, unspecified organism Status: Acute Assessment and Plan: * CXR: Bibasilar airspace disease with crowding of the pulmonary vessels due to low lung lines. Considerations include edema, atelectasis and/or pneumonia. * started on CAP tx: azithromycin & ceftriaxone * Viral PCR: negative for Flu/COVID/RSV * Consider ordering legionella, mycoplasma and pneumococcal * no supplemental O2 requirement * supportive treatment * trend labs * Monitor vital signs, I&Os, neuro status and patient is a fall risk * Follow WBC, serum electrolytes, temperature curves and cultures * Send sputum cultures * Gentle IV fluid resuscitation * Guaifenesin * DuoNebs * Continue Antibiotics * Endorsing persistent productive cough - obtain culture and monitor physical exam/labs * Remains afebrile without leukocytosis or productive lung sounds (3) Diastolic congestive heart failure: Qualifiers: Heart failure chronicity: unspecified Qualified Code(s): I50.30 - Unspecified diastolic (congestive) heart failure Code(s): I50.30 - Unspecified diastolic (congestive) heart failure Status: Acute Assessment and Plan: * HD Thursday * Pulmonary edema on x-ray * IV Lasix x1 * Dialysis * Continue p.o. 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 HS * SSI and Lantus * Continue Zetia (5) Coronary artery disease: Qualifiers: Associated angina: without angina Coronary Disease-Associated Artery/Lesion type: [place] artery [place] vs. transplanted heart: [place] heart Qualified Code(s): I25.10 - Atherosclerotic heart disease of [place] coronary artery without angina pectoris Code(s): I25.10 - Atherosclerotic heart disease of [place] coronary artery without angina pectoris Status: Chronic Assessment and Plan: * Continue Lipitor, Zetia, isosorbide, nitro, and carvedilol Subjective Date/time seen: 01/14/25 07:25 Interval history: 69-year-old male past medical history of COPD, diabetes type 2, hypertension, end-stage renal disease on dialysis and CAD presents the hospital with shortness of breath. 01/14/2025 Patient sitting comfortably in bed at time of exam. Denies chest pain, shortness of breath, n/v, abd pain at this time. Remains on 0-1L nc but lung sound are clear and he denies any SOB, but endorsing increased productive cough - will obtain sputum sample. Remains afebrile without leukocytosis. Vital signs, blood work otherwise stable. Blood culture still pending at this time. Review of Systems Review of Systems: 12 systems were reviewed and are negativ e except for as per HPI. Exam Narrative: General: well appearing, appears stated age. HEENT: normocephalic, atraumatic. Mucous membranes moist. EOMI, PERRLA, bilateral sclera anicteric, no conjunctival injection. Neck supple without JVD, lymphadenopathy, or bruit. Respiratory: clear to ascultation bilaterally. No rales/rhonic/wheezes. Cardiovascular: Regular rate and rhythm, normal S1-S2 upon ascultation. No murmurs, rubs, or clicks. PMI is nondisplaced, capillary refill less than 3 second. Abdomen: Soft, round, no pulsatile masses, nondistended and nontender. No rebound, no guarding. No CVA tenderness, no hepatosplenomegaly. Bowel sounds present to all four quadrants. No high pitch or tinkling sounds, resonant to per cussion. Extremities: No cyanosis, clubbing, or edema present. Pulses are palpable 2/2. Active ROM to all four extremities. Neuro: Alert and orientated x 4. PERRLA. Cranial nerves 2-12 intact without focal deficit. Skin: Warm, dry, and intact, without rash, erythema, or lesion. Psych: pleasant, cooperative, normal speech, normal affect, no hallucinations, no dysarthia Objective Data Vital Signs Vital Signs: Vital Signs - 24 hr 01/13/25 08:00 01/13/25 08:11 01/13/25 08:11 Temperature Pulse Rate 83 84 Respiratory Rate 20 Blood Pressure Pulse Oximetry 92 Oxygen Delivery Nasal Cannula Oxygen Flow Rate 1.5 01/13/25 08:19 01/13/25 08:21 01/13/25 12:00 Temperature Pulse Rate 80 84 87 Respiratory Rate 20 Blood Pressure Pulse Oximetry Oxygen Delivery Oxygen Flow Rate 01/13/25 13:06 01/13/25 13:40 01/13/25 13:40 Temperature 98.1 F Pulse Rate 85 83 Respiratory Rate 20 Blood Pressure 126/70 127/64 Pulse Oximetry 93 Oxygen Delivery Oxygen Flow Rate 2 01/13/25 13:45 01/13/25 14:00 01/13/25 14:15 Temperature Pulse Rate 83 83 83 Respiratory Rate Blood Pressure 127/70 157/82 H 146/76 H Pulse Oximetry Oxygen Delivery Oxygen Flow Rate 01/13/25 14:30 01/13/25 14:40 01/13/25 14:45 Temperature Pulse Rate 82 84 79 Respiratory Rate 20 Blood Pressure 124/68 148/78 H Pulse Oximetry Oxygen Delivery Oxygen Flow Rate 01/13/25 14:47 01/13/25 15:00 01/13/25 15:15 Temperature Pulse Rate 80 80 80 Respiratory Rate 20 Blood Pressure 134/77 159/84 H Pulse Oximetry Oxygen Delivery Oxygen Flow Rate 01/13/25 15:30 01/13/25 15:45 01/13/25 16:00 Temperature Pulse Rate 79 78 78 Respiratory Rate Blood Pressure 150/75 H 140/70 148/82 H Pulse Oximetry Oxygen Delivery Oxygen Flow Rate 01/13/25 16:00 01/13/25 16:15 01/13/25 16:30 Temperature Pulse Rate 78 78 77 Respiratory Rate Blood Pressure 114/65 131/68 Pulse Oximetry Oxygen Delivery Oxygen Flow Rate 01/13/25 16:41 01/13/25 16:46 01/13/25 20:00 Temperature 98.1 F Pulse Rate 76 80 88 Respiratory Rate 18 Blood Pressure 133/70 141/77 H Pulse Oximetry 98 Oxygen Delivery Oxygen Flow Rate 01/13/25 20:54 01/13/25 20:59 01/13/25 21:03 Temperature Pulse Rate 84 80 Respiratory Rate 20 20 Blood Pressure Pulse Oximetry 93 Oxygen Delivery Nasal Cannula Oxygen Flow Rate 1.5 01/13/25 21:59 01/14/25 00:00 01/14/25 02:20 Temperature 97.3 F L Pulse Rate 79 86 76 Respiratory Rate 18 20 Blood Pressure 160/75 H Pulse Oximetry 96 Oxygen Delivery Oxygen Flow Rate 01/14/25 02:28 01/14/25 04:00 01/14/25 05:42 Temperature 97.5 F L Pulse Rate 80 86 90 Respiratory Rate 20 20 Blood Pressure 169/77 H Pulse Oximetry 97 Oxygen Delivery Oxygen Flow Rate 01/14/25 07:10 01/14/25 07:21 01/14/25 07:21 Temperature Pulse Rate 86 90 Respiratory Rate 18 20 Blood Pressure Pulse Oximetry 93 Oxygen Delivery Nasal Cannula Oxygen Flow Rate 1 Intake/Output Intake/Output: Intake & Output 01/11/25 01/12/25 01/13/25 01/14/25 23:59 23:59 23:59 23:59 Intake Total 240 650 250 Output Total 0 3000 400 Balance 240 -2350 -150 Meds/Results Medications: Active Medications Generic Name Dose Route Start Last Admin Trade Name Freq PRN Reason Stop Dose Admin Acetaminophen 650 mg 01/12/25 17:13 Acetaminophen 325 Mg Tablet PO Q4H PRN Mild Pain (1-3) or Fever Hydrocodone Bitart/Acetaminophen 1 tab 01/12/25 14:26 Hydrocodone/Acetaminophen (*Crx) 5-325 Mg Tablet PO Q4H PRN Pain Rated 4-6 Albuterol/Ipratropium 3 ml 01/12/25 20:00 01/14/25 07:09 Ipratropium 0.5 Mg/Albuterol Sulfate 2.5 Mg Ampul.Neb 3 Ml INHALATION 3 ml Q6HRT MADIE Administration Allopurinol 100 mg 01/13/25 09:00 01/13/25 08:19 Allopurinol 100 Mg Tablet PO 100 mg DAILY MADIE Administration Atorvastatin Calcium 80 mg 01/12/25 21:50 01/13/25 22:02 Atorvastatin 40 Mg Tablet PO 80 mg HS MADIE Administration Calcium Acetate 667 mg 01/13/25 08:00 01/13/25 17:23 Calcium Acetate 667 Mg Tablet PO 667 mg TIDWM MADIE Administration Carvedilol 25 mg 01/12/25 21:00 01/13/25 22:02 Carvedilol 25 Mg Tablet PO 25 mg Q12H MADIE Administration Clopidogrel Bisulfate 75 mg 01/13/25 09:00 01/13/25 08:19 Clopidogrel Bisulfate 75 Mg Tablet PO 75 mg DAILY MADIE Administration Dextrose 12.5 gm 01/12/25 17:13 Dextrose 50% 25 Gm/50 Ml Syringe IV PUSH PRN PRN Hypoglycemia Protocol Docusate Sodium 100 mg 01/12/25 17:13 Docusate Sodium 100 Mg Capsule PO BID PRN Constipation Ezetimibe 10 mg 01/13/25 09:00 01/13/25 08:19 Ezetimibe 10 Mg Tablet PO 10 mg DAILY MADIE Administration Epoetin Patel-epbx 10,000 units 01/14/25 18:00 Epoetin Patel-Epbx 10,000 Units/Ml Vial IV PUSH 01/14/25 18:01 ONCE ONE Furosemide 80 mg 01/13/25 09:00 01/13/25 08:18 Furosemide 80 Mg Tablet PO 80 mg QAM MADIE Administration Gabapentin 100 mg 01/13/25 09:00 01/13/25 08:19 Gabapentin 100 Mg Capsule PO 100 mg DAILY MADIE Administration Glucagon 1 mg 01/12/25 17:13 Glucagon For Inj 1 Mg Vial IM PRN PRN Hypoglycemia Protocol Glucose 15 gm 01/12/25 17:13 Glucose Oral Gel 15 Gm Of Glucse In 37.5 Gm Tube PO PRN PRN Hypoglycemia Protocol Ceftriaxone Sodium 1 gm/ 50 mls @ 100 mls/hr 01/13/25 16:00 01/13/25 17:55 Sodium Chloride IVPB Infused Q24H MADIE Infusion Azithromycin 500 mg/ Sodium 250 mls @ 250 mls/hr 01/13/25 17:00 01/13/25 17:25 Chloride IVPB 01/16/25 17:59 250 mls/hr Q24H MADIE Administration Dextrose 1,000 mls @ 100 mls/hr 01/12/25 17:13 Dextrose 5% 1,000 Ml IVPB PRN PRN Hypoglycemia Protocol Albumin Human 50 mls @ 999 mls/hr 01/13/25 06:44 Albutein IVPB 02/12/25 06:43 Q10M PRN HYPOTENSION Insulin Aspart 2 - 5 units 01/13/25 08:00 01/13/25 17:23 Insulin Aspart (*Bkc) 100 Units/Ml SUB-Q Not Given TIDWM MADIE Protocol Insulin Aspart 1 - 2 units 01/12/25 21:00 01/13/25 22:04 Insulin Aspart (*Bkc) 100 Units/Ml SUB-Q 1 units HS MADIE Administration Protocol Insulin Glargine 25 units 01/12/25 21:50 01/13/25 22:06 Insulin Glargine (*Bkc) 100 Units/Ml SUB-Q 25 units HS MADIE Administration Irbesartan 150 mg 01/13/25 09:00 01/13/25 08:19 Irbesartan 150 Mg Tablet PO 150 mg DAILY MADIE Administration Isosorbide Dinitrate 5 mg 01/12/25 21:50 01/13/25 17:23 Isosorbide Dinitrate 5 Mg Tablet PO 5 mg BID MADIE Administration Lidocaine/Prilocaine 1 each 01/13/25 15:43 Lidocaine/Prilocaine Cream 2.5-2.5% Tube TOPICAL WITH DIALYSIS PRN Pain Methocarbamol 500 mg 01/12/25 21:43 Methocarbamol 500 Mg Tablet PO QID PRN Muscle spasms Morphine Sulfate 2 mg 01/12/25 14:26 Morphine Sulfate (*Crx) 2 Mg/Ml Inj IV PUSH Q2H PRN Pain Rated 7-10 Nitroglycerin 0.4 mg 01/12/25 21:38 Nitroglycerin Sl 0.4 Mg Tablet SUBLINGUAL Q5MIN PRN chest pain Pantoprazole Sodium 40 mg 01/13/25 09:00 01/13/25 08:18 Pantoprazole 40 Mg Tablet PO 40 mg QAM MADIE Administration Prednisolone Acetate 1 drop 01/12/25 21:40 01/13/25 22:05 Prednisolone Acetate 1% Ophth 5 Ml EACH EYE 1 drop Q12HR MADIE Administration Promethazine HCl 12.5 mg 01/12/25 14:26 Promethazine Hcl 25 Mg/Ml Ampul IV PUSH Q6H PRN Nausea Vitamin D 125 mcg 01/13/25 09:00 01/13/25 08:18 Cholecalciferol (Vitamin D3) 125 Mcg (5,000 Units) Tablet PO 125 mcg DAILY MADIE Administration Radiology Results: ITS Impressions Chest X-Ray 01/12/25 10:53 Impression: 1: Bibasilar airspace disease with crowding of the pulmonary vessels due to low lung lines. Considerations include edema, atelectasis and/or pneumonia. Labs Labs: Laboratory Results - last 24 hr 01/13/25 01/13/25 01/13/25 04:52 07:58 09:48 POC Capillary Glucose 114 H Nasal MRSA (PCR) Not detected Hep Bs Antigen Negative Hep Bs Antibody Negative 01/13/25 01/13/25 01/13/25 12:09 17:22 21:13 POC Capillary Glucose 150 H 179 H 261 H Nasal MRSA (PCR) Hep Bs Antigen Hep Bs Antibody Quality VTE Prophylaxis VTE prophylaxis: mechanical ordered
[2025-01-14 07:26] LABS: Hematocrit 31.0 % (42.0-52.0); Hemoglobin 9.9 g/dL (14.0-18.0); Immature Granulocyte Percent A 0.6 % (0-0.5); Lymphocytes Absolute Auto 1.74 K/mm3 (0.9-3.2); Mean Corpuscular HGB Conc 31.9 g/dl (32-36); Mean Corpuscular Hemoglobin 33.0 pg (26-34); Mean Corpuscular Volume 103.3 fl (80-100); Nucleated Red Blood Cells Absolute Auto 0.000 K/mm3 (0.0-0.012); Nucleated Red Blood Cells Perc 0.0 % (0.0-0.2); Platelet Count Result 179 k/mm3 (150-375); Red Blood Count 3.00 M/mm3 (4.6-6.20); White Blood Count 6.4 K/mm3 (4.5-10.0)
[2025-01-14] MEDS: LIDOCAINE/PRILOCAINE CREAM 2.5-2.5% TUBE 1 EACH TOPICAL (07:56)
[2025-01-14 08:01] LABS: Alanine Aminotransferase 15 U/L (6-50); Albumin Level 3.7 g/dL (3.5-5.1); Alkaline Phosphatase 70 U/L (38-126); Anion Gap 12 mmol/L (4-12); Aspartate Amino Transferase 25 U/L (17-59); Bilirubin,Total 0.7 mg/dL (0.2-1.3); Blood Urea Nitrogen 67 mg/dL (9-20); Calcium 9.1 mg/dL (8.4-10.2); Carbon Dioxide 26 mmol/L (22-30); Chloride 102 mmol/L (98-107); Estimated CRCL calculation 9 ml/min; Estimated Glomerular Filt Rate 7; Glucose 108 mg/dL (65-110); Potassium 5.0 mmol/L (3.4-5.0); Sodium 140 mmol/L (137-145); Total Protein 7.3 g/dL (6.3-8.2)
[2025-01-14] MEDS: SODIUM CHLORIDE 0.9% IV 1,000 ML 999 ML IV CONT (08:10)
--- NOTE | 2025-01-14 10:01 | P.PNNP_ITS ---
Progress Note: A&P Assessment and Plan (1) End stage renal disease: Code(s): N18.6 - End stage renal disease Status: Chronic Assessment and Plan: * HD today * continue dialysis schedule of T/T/S while hospitalized * follow electrolytes, volume status, and clearance (2) Acute hypoxic respiratory failure: Code(s): J96.01 - Acute respiratory failure with hypoxia Status: Acute Assessment and Plan: * as noted on presentation * suspect multifactorial etiology: * pneumonia * mild fluid overload * diastolic heart failure * missed HD treatment this week (on 01/10) * COPD * wean supplemental oxygen as tolerated * continue current therapy as outlined (3) Pneumonia: Code(s): J18.9 - Pneumonia, unspecified organism Status: Acute Assessment and Plan: * as suggested by admission imaging: * CXR with bibasilar airspace disease with crowding of the pulmonary vessels due to low lung lines * viral testing for influenza/RSV/COVID negative * follow culture data * on antibiotics (4) Chronic diastolic heart failure: Code(s): I50.32 - Chronic diastolic (congestive) heart failure Status: Acute Assessment and Plan: * first noted in 2020 * compensated with fluid removal with dialysis * mild fluid overload/exacerbation due to missed treatment (on 01/10) * s/p DUF session (on 01/13) with 3L fluid removal * continue supportive therapy (5) Anemia: Qualifiers: Anemia type: unspecified type Qualified Code(s): D64.9 - Anemia, unspecified Code(s): D64.9 - Anemia, unspecified Status: Chronic Assessment and Plan: * due to ESRD * Epogen with HD * follow trend of H/H (6) Hypertension: Qualifiers: Hypertension type: primary hypertension Qualified Code(s): I10 - Essential (primary) hypertension Code(s): I10 - Essential (primary) hypertension Status: Chronic Assessment and Plan: * reasonable control at this time * follow trend of hemodynamics (7) Chronic obstructive pulmonary disease: Qualifiers: COPD type: emphysema Emphysema type: unspecified Qualified Code(s): J 43.9 - Emphysema, unspecified Code(s): J44.9 - Chronic obstructive pulmonary disease, unspecified Status: Chronic Assessment and Plan: * no evidence of acute exacerbation * maybe partly playing a role with #2 (8) Insulin dependent type 2 diabetes mellitus: Code(s): E11.9 - Type 2 diabetes mellitus without complications; Z79.4 - snf (current) use of insulin Status: Acute Assessment and Plan: * follow accu-cheks * glycemic control per hospitalist Will continue to follow. Subjective Date/time seen: 01/14/25 10:01 Interval history: Follow-up for end stage renal disease on hemodialysis. Tolerating dialysis treatment at the time of my visit (seen on HD at 9:50am); tolerated dry ultrafiltration session yesterday as well; reports some improvement in breathing/respiratory status still not back to baseline; has noted a more productive cough in the last 24 hours; no other issues/events overnight or earlier this morning. Exam 2 Narrative: General: elderly but WD/WN male in NAD Heart: normal S1 and S2; no rub Lungs: coarse breath sounds Abdomen: soft, nontender, nondistended, positive bowel sounds Extremities: no cyanosis or clubbing; no edema; s/p right AKA Skin: warm and dry Objective Data Vital Signs Vital Signs: Vital Signs Temp Pulse Resp BP Pulse Ox O2 Del Method O2 Flow Rate 01/14/25 10:00 87 114/59 L 01/14/25 09:45 88 139/63 01/14/25 09:30 87 163/74 H 01/14/25 09:15 89 158/71 H 01/14/25 09:00 86 171/78 H 01/14/25 08:45 87 114/53 L 01/14/25 08:30 88 171/71 H 01/14/25 08:25 87 167/78 H 01/14/25 08:10 98.2 F 87 18 171/94 H 01/14/25 07:21 93 Nasal Cannula 1 01/14/25 07:21 90 20 01/14/25 07:10 86 18 01/14/25 05:42 97.5 F L 90 20 169/77 H 97 01/14/25 04:00 86 01/14/25 02:28 80 20 01/14/25 02:20 76 20 01/14/25 00:00 86 01/13/25 21:59 97.3 F L 79 18 160/75 H 96 01/13/25 21:03 80 20 01/13/25 20:59 93 Nasal Cannula 1.5 01/13/25 20:54 84 20 01/13/25 20:00 88 01/13/25 16:46 98.1 F 80 18 141/77 H 98 01/13/25 16:41 76 133/70 01/13/25 16:30 77 131/68 01/13/25 16:15 78 114/65 01/13/25 16:00 78 01/13/25 16:00 78 148/82 H 01/13/25 15:45 78 140/70 01/13/25 15:30 79 150/75 H 01/13/25 15:15 80 159/84 H 01/13/25 15:00 80 134/77 01/13/25 14:47 80 20 01/13/25 14:45 79 148/78 H 01/13/25 14:40 84 20 01/13/25 14:30 82 124/68 01/13/25 14:15 83 146/76 H 01/13/25 14:00 83 157/82 H 01/13/25 13:45 83 127/70 01/13/25 13:40 83 127/64 01/13/25 13:40 2 01/13/25 13:06 98.1 F 85 20 126/70 93 Intake/Output Intake/Output: Intake & Output 01/11/25 01/12/25 01/13/25 01/14/25 23:59 23:59 23:59 23:59 Intake Total 240 650 490 Output Total 0 3000 1731 Balance 240 -1284 -1485 Meds/Results Medications: Active Medications Generic Name Dose Route Start Last Admin Trade Name Freq PRN Reason Stop Dose Admin Acetaminophen 650 mg 01/12/25 17:13 Acetaminophen 325 Mg Tablet PO Q4H PRN Mild Pain (1-3) or Fever Hydrocodone Bitart/Acetaminophen 1 tab 01/12/25 14:26 Hydrocodone/Acetaminophen (*Crx) 5-325 Mg Tablet PO Q4H PRN Pain Rated 4-6 Albuterol/Ipratropium 3 ml 01/12/25 20:00 01/14/25 07:09 Ipratropium 0.5 Mg/Albuterol Sulfate 2.5 Mg Ampul.Neb 3 Ml INHALATION 3 ml Q6HRT MADIE Administration Allopurinol 100 mg 01/13/25 09:00 01/14/25 12:33 Allopurinol 100 Mg Tablet PO 100 mg DAILY MADIE Administration Amoxicillin/Clavulanate Potassium 1 tablet 01/14/25 09:00 01/14/25 12:33 Amoxicillin/Clavulanate K 875-125 Mg Tab PO 1 tablet Q12HR MADIE Administration Atorvastatin Calcium 80 mg 01/12/25 21:50 01/13/25 22:02 Atorvastatin 40 Mg Tablet PO 80 mg HS MADIE Administration Azithromycin 500 mg 01/14/25 09:00 01/14/25 12:32 Azithromycin 500 Mg Tablet PO 500 mg DAILY MADIE Administration Calcium Acetate 667 mg 01/13/25 08:00 01/14/25 12:32 Calcium Acetate 667 Mg Tablet PO 667 mg TIDWM MADIE Administration Carvedilol 25 mg 01/12/25 21:00 01/14/25 12:32 Carvedilol 25 Mg Tablet PO 25 mg Q12H MADIE Administration Clopidogrel Bisulfate 75 mg 01/13/25 09:00 01/14/25 12:32 Clopidogrel Bisulfate 75 Mg Tablet PO 75 mg DAILY MADIE Administration Dextrose 12.5 gm 01/12/25 17:13 Dextrose 50% 25 Gm/50 Ml Syringe IV PUSH PRN PRN Hypoglycemia Protocol Docusate Sodium 100 mg 01/12/25 17:13 Docusate Sodium 100 Mg Capsule PO BID PRN Constipation Ezetimibe 10 mg 01/13/25 09:00 01/14/25 12:32 Ezetimibe 10 Mg Tablet PO 10 mg DAILY MADIE Administration Epoetin Patel-epbx 10,000 units 01/14/25 18:00 01/14/25 10:23 Epoetin Patel-Epbx 10,000 Units/Ml Vial IV PUSH 01/14/25 18:01 10,000 units ONCE ONE Administration Furosemide 80 mg 01/13/25 09:00 01/14/25 12:32 Furosemide 80 Mg Tablet PO 80 mg QAM MADIE Administration Gabapentin 100 mg 01/13/25 09:00 01/14/25 12:27 Gabapentin 100 Mg Capsule PO Not Given DAILY MADIE Glucagon 1 mg 01/12/25 17:13 Glucagon For Inj 1 Mg Vial IM PRN PRN Hypoglycemia Protocol Glucose 15 gm 01/12/25 17:13 Glucose Oral Gel 15 Gm Of Glucse In 37.5 Gm Tube PO PRN PRN Hypoglycemia Protocol Dextrose 1,000 mls @ 100 mls/hr 01/12/25 17:13 Dextrose 5% 1,000 Ml IVPB PRN PRN Hypoglycemia Protocol Albumin Human 50 mls @ 999 mls/hr 01/13/25 06:44 01/14/25 10:42 Albutein IVPB 02/12/25 06:43 999 mls/hr Q10M PRN Administration HYPOTENSION Insulin Aspart 2 - 5 units 01/13/25 08:00 01/14/25 12:46 Insulin Aspart (*Bkc) 100 Units/Ml SUB-Q Not Given TIDWM MADIE Protocol Insulin Aspart 1 - 2 units 01/12/25 21:00 01/13/25 22:04 Insulin Aspart (*Bkc) 100 Units/Ml SUB-Q 1 units HS MADIE Administration Protocol Insulin Glargine 25 units 01/12/25 21:50 01/13/25 22:06 Insulin Glargine (*Bkc) 100 Units/Ml SUB-Q 25 units HS MADIE Administration Irbesartan 150 mg 01/13/25 09:00 01/14/25 12:32 Irbesartan 150 Mg Tablet PO 150 mg DAILY MADIE Administration Isosorbide Dinitrate 5 mg 01/12/25 21:50 01/14/25 12:31 Isosorbide Dinitrate 5 Mg Tablet PO 5 mg BID MADIE Administration Lidocaine/Prilocaine 1 each 01/13/25 15:43 01/14/25 07:56 Lidocaine/Prilocaine Cream 2.5-2.5% Tube TOPICAL 1 each WITH DIALYSIS PRN Administration Pain Methocarbamol 500 mg 01/12/25 21:43 Methocarbamol 500 Mg Tablet PO QID PRN Muscle spasms Morphine Sulfate 2 mg 01/12/25 14:26 Morphine Sulfate (*Crx) 2 Mg/Ml Inj IV PUSH Q2H PRN Pain Rated 7-10 Nitroglycerin 0.4 mg 01/12/25 21:38 Nitroglycerin Sl 0.4 Mg Tablet SUBLINGUAL Q5MIN PRN chest pain Pantoprazole Sodium 40 mg 01/13/25 09:00 01/14/25 12:33 Pantoprazole 40 Mg Tablet PO 40 mg QAM MADIE Administration Prednisolone Acetate 1 drop 01/12/25 21:40 01/14/25 12:33 Prednisolone Acetate 1% Ophth 5 Ml EACH EYE 1 drop Q12HR MADIE Administration Promethazine HCl 12.5 mg 01/12/25 14:26 Promethazine Hcl 25 Mg/Ml Ampul IV PUSH Q6H PRN Nausea Vitamin D 125 mcg 01/13/25 09:00 01/14/25 12:32 Cholecalciferol (Vitamin D3) 125 Mcg (5,000 Units) Tablet PO 125 mcg DAILY MADIE Administration Radiology Results: ITS Impressions Chest X-Ray 01/12/25 10:53 Impression: 1: Bibasilar airspace disease with crowding of the pulmonary vessels due to low lung lines. Considerations include edema, atelectasis and/or pneumonia. Labs Labs: Laboratory Tests 01/14/25 07:03 01/14/25 07:03 Calcium 9.1 Phosphorus 5.3 H Total Bilirubin 0.7 Direct Bilirubin 0.0 AST 25 ALT 15 Alkaline Phosphatase 70 Total Protein 7.3 Albumin 3.7
[2025-01-14] MEDS: EPOETIN ALFA-EPBX 10,000 UNITS/ML VIAL 10000 UNITS IV PUSH (10:23)
[2025-01-14] MEDS: ALBUMIN HUMAN 25% 12.5 GM/50ML 50 ML IVPB (10:42)
[2025-01-14] MEDS: ISOSORBIDE DINITRATE 5 MG TABLET PO ×2 (12:31→17:12)
[2025-01-14] MEDS: CHOLECALCIFEROL (VITAMIN D3) 125 MCG (5,000 UNITS) TABLET PO (12:32)
[2025-01-14] MEDS: EZETIMIBE 10 MG TABLET PO (12:32)
[2025-01-14] MEDS: CLOPIDOGREL BISULFATE 75 MG TABLET PO (12:32)
[2025-01-14] MEDS: IRBESARTAN 150 MG TABLET PO (12:32)
[2025-01-14] MEDS: FUROSEMIDE 80 MG TABLET PO (12:32)
[2025-01-14] MEDS: CALCIUM ACETATE 667 MG TABLET PO ×2 (12:32→17:12)
[2025-01-14] MEDS: AZITHROMYCIN 500 MG TABLET PO (12:32)
[2025-01-14] MEDS: PANTOPRAZOLE 40 MG TABLET PO (12:33)
[2025-01-14] MEDS: prednisoLONE ACETATE 1% OPHTH 5 ML 1 DROP EACH EYE ×2 (12:33→21:57)
[2025-01-14 16:04] LABS: Ammonia < 9 umol/L (9-30)
[2025-01-14] MEDS: SODIUM CHLORIDE 0.9% IV 1,000 ML 75 ML IV CONT (17:10)
[2025-01-14] MEDS: INSULIN GLARGINE (*BKC) 100 UNITS/ML 25 UNITS SUB-Q (21:56)
[2025-01-14] MEDS: ATORVASTATIN 40 MG TABLET 80 MG PO (21:56)
[2025-01-15] VITALS (19 sets, daily range): BP systolic 112–160; BP diastolic 53–81; PULSE 70–89; RESP 0–18; TEMP 36.3–37.1; O2SAT 92–96
[2025-01-15] MEDS: IPRATROPIUM 0.5 MG/ALBUTEROL SULFATE 2.5 MG AMPUL.NEB 3 ML INHALATION ×4 (02:06→19:52)
[2025-01-15 05:35] LABS: Hematocrit 31.0 % (42.0-52.0); Hemoglobin 9.9 g/dL (14.0-18.0); Immature Granulocyte Percent A 0.6 % (0-0.5); Lymphocytes Absolute Auto 1.86 K/mm3 (0.9-3.2); Mean Corpuscular HGB Conc 31.9 g/dl (32-36); Mean Corpuscular Hemoglobin 33.2 pg (26-34); Mean Corpuscular Volume 104.0 fl (80-100); Nucleated Red Blood Cells Absolute Auto 0.030 K/mm3 (0.0-0.012); Nucleated Red Blood Cells Perc 0.5 % (0.0-0.2); Platelet Count Result 193 k/mm3 (150-375); Red Blood Count 2.98 M/mm3 (4.6-6.20); White Blood Count 6.4 K/mm3 (4.5-10.0)
[2025-01-15 05:52] LABS: Alanine Aminotransferase 17 U/L (6-50); Albumin Level 3.7 g/dL (3.5-5.1); Alkaline Phosphatase 86 U/L (38-126); Anion Gap 11 mmol/L (4-12); Aspartate Amino Transferase 27 U/L (17-59); Bilirubin,Total 0.8 mg/dL (0.2-1.3); Blood Urea Nitrogen 44 mg/dL (9-20); Calcium 8.9 mg/dL (8.4-10.2); Carbon Dioxide 24 mmol/L (22-30); Chloride 105 mmol/L (98-107); Estimated CRCL calculation 11 ml/min; Estimated Glomerular Filt Rate 10; Glucose 128 mg/dL (65-110); Potassium 4.3 mmol/L (3.4-5.0); Sodium 140 mmol/L (137-145); Total Protein 7.0 g/dL (6.3-8.2)
--- NOTE | 2025-01-15 06:51 | P.PNIM_ITS ---
Progress Note: A&P Assessment and Plan (1) ESRD needing dialysis: Code(s): N18.6 - End stage renal disease; Z99.2 - Dependence on renal dialysis Status: Acute Assessment and Plan: * Fluid overload on exam upon admission * Dialysis T/T/S * Nephrology consulted, appreciate further recommendations * HD on 01/12 - will likely go for another session today 01/13 * Continue phosphate binders * Monitor daily labs * Nephrology consult - appreciate further recommendations * Kidney function near baseline (2) Pneumonia: Qualifiers: Laterality: unspecified laterality Lung location: unspecified part of lung Pneumonia type: due to unspecified organism Qualified Code(s): J18.9 - Pneumonia, unspecified organism Code(s): J18.9 - Pneumonia, unspecified organism Status: Acute Assessment and Plan: * CXR: Bibasilar airspace disease with crowding of the pulmonary vessels due to low lung lines. Considerations include edema, atelectasis and/or pneumonia. * started on CAP tx: azithromycin & ceftriaxone * Viral PCR: negative for Flu/COVID/RSV * Consider ordering legionella, mycoplasma and pneumococcal * no supplemental O2 requirement * supportive treatment * trend labs * Monitor vital signs, I&Os, neuro status and patient is a fall risk * Follow WBC, serum electrolytes, temperature curves and cultures * Send sputum cultures * Gentle IV fluid resuscitation * Guaifenesin * DuoNebs * Continue Antibiotics * Endorsing persistent productive cough - obtain culture and monitor physical exam/labs * Remains afebrile without leukocytosis or productive lung sounds (3) Diastolic congestive heart failure: Qualifiers: Heart failure chronicity: unspecified Qualified Code(s): I50.30 - Unspecified diastolic (congestive) heart failure Code(s): I50.30 - Unspecified diastolic (congestive) heart failure Status: Acute Assessment and Plan: * HD Thursday * Pulmonary edema on x-ray * IV Lasix x1 * Dialysis * Continue p.o. 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 HS * SSI and Lantus * Continue Zetia (5) Coronary artery disease: Qualifiers: Associated angina: without angina Coronary Disease-Associated Artery/Lesion type: [place] artery [place] vs. transplanted heart: [place] heart Qualified Code(s): I25.10 - Atherosclerotic heart disease of [place] coronary artery without angina pectoris Code(s): I25.10 - Atherosclerotic heart disease of [place] coronary artery without angina pectoris Status: Chronic Assessment and Plan: * Continue Lipitor, Zetia, isosorbide, nitro, and carvedilol (6) Weakness: Code(s): R53.1 - Weakness Status: Acute Assessment and Plan: * Multifactorial * Likely 2/2 to underlying infection, ESRD/missed dialysis * PT/OT evals - recommend further rehab (SNF, [facility]) * Working with [facility] regarding placement - pt needs dialysis T/T/S, facility will need to work with this schedule Subjective Date/time seen: 01/15/25 06:51 Interval history: 69-year-old male past medical history of COPD, diabetes type 2, hypertension, end-stage renal disease on dialysis and CAD presents the hospital with shortness of breath. 01/15/2025 Patient sitting comfortably in bed at time of exam. Denies chest pain, shortness of breath, n/v, abd pain at this time. Prelim result for BCs negative for growth. PT/OT recommends continued rehab - working with [facility] regarding placement, pt undergoes dialysis T/T/S so will need to coordinate with facility regarding this. Pt otherwise feels much better today, physical exam is benign, remains afebrile without leukocytosis. Hypertensive @ 5am, will continue to monitor, irbesartan was held this morning as he was hypotensive yesterday. Will consider restarting if BP remains elevated. Review of Systems Review of Systems: 12 systems were reviewed and are negativ e except for as per HPI. Exam Narrative: General: well appearing, appears stated age. HEENT: normocephalic, atraumatic. Mucous membranes moist. EOMI, PERRLA, bilateral sclera anicteric, no conjunctival injection. Neck supple without JVD, lymphadenopathy, or bruit. Respiratory: clear to ascultation bilaterally. No rales/rhonic/wheezes. Cardiovascular: Regular rate and rhythm, normal S1-S2 upon ascultation. No murmurs, rubs, or clicks. PMI is nondisplaced, capillary refill less than 3 second. Abdomen: Soft, round, no pulsatile masses, nondistended and nontender. No rebound, no guarding. No CVA tenderness, no hepatosplenomegaly. Bowel sounds present to all four quadrants. No high pitch or tinkling sounds, resonant to percussion. Extremities: No cyanosis, clubbing, or edema present. Pulses are palpable 2/2. Active ROM to all four extremities. Neuro: Alert and orientated x 4. PERRLA. Cranial nerves 2-12 intact without focal deficit. Skin: Warm, dry, and intact, without rash, erythema, or lesion. Psych: pleasant, cooperative, normal speech, normal affect, no hallucinations, no dysarthia Objective Data Vital Signs Vital Signs: Vital Signs - 24 hr 01/14/25 07:10 01/14/25 07:21 01/14/25 07:21 Temperature Pulse Rate 86 90 Respiratory Rate 18 20 Blood Pressure Pulse Oximetry 93 Oxygen Delivery Nasal Cannula Oxygen Flow Rate 1 01/14/25 08:00 01/14/25 08:00 01/14/25 08:10 Temperature 98.2 F Pulse Rate 87 87 Respiratory Rate 18 Blood Pressure 171/94 H Pulse Oximetry 99 Oxygen Delivery Nasal Cannula Oxygen Flow Rate 2 01/14/25 08:25 01/14/25 08:30 01/14/25 08:45 Temperature Pulse Rate 87 88 87 Respiratory Rate Blood Pressure 167/78 H 171/71 H 114/53 L Pulse Oximetry Oxygen Delivery Oxygen Flow Rate 01/14/25 09:00 01/14/25 09:15 01/14/25 09:30 Temperature Pulse Rate 86 89 87 Respiratory Rate Blood Pressure 171/78 H 158/71 H 163/74 H Pulse Oximetry Oxygen Delivery Oxygen Flow Rate 01/14/25 09:45 01/14/25 10:00 01/14/25 10:15 Temperature Pulse Rate 88 87 83 Respiratory Rate Blood Pressure 139/63 114/59 L 93/40 L Pulse Oximetry Oxygen Delivery Oxygen Flow Rate 01/14/25 10:30 01/14/25 10:45 01/14/25 11:00 Temperature Pulse Rate 86 86 86 Respiratory Rate Blood Pressure 90/56 L 114/45 L 90/53 L Pulse Oximetry Oxygen Delivery Oxygen Flow Rate 01/14/25 11:15 01/14/25 11:30 01/14/25 11:45 Temperature Pulse Rate 86 86 88 Respiratory Rate Blood Pressure 96/54 L 122/68 136/74 Pulse Oximetry Oxygen Delivery Oxygen Flow Rate 01/14/25 11:58 01/14/25 12:00 01/14/25 12:03 Temperature 98.2 F Pulse Rate 85 86 86 Respiratory Rate 18 Blood Pressure 164/105 H 147/86 H Pulse Oximetry Oxygen Delivery Oxygen Flow Rate 01/14/25 12:32 01/14/25 12:40 01/14/25 13:06 Temperature Pulse Rate 86 86 86 Respiratory Rate 18 Blood Pressure 120/66 Pulse Oximetry Oxygen Delivery Oxygen Flow Rate 01/14/25 13:10 01/14/25 13:32 01/14/25 14:00 Temperature 97.5 F L Pulse Rate 88 91 Respiratory Rate 20 18 Blood Pressure 106/52 L Pulse Oximetry 95 Oxygen Delivery Nasal Cannula Oxygen Flow Rate 1 01/14/25 14:45 01/14/25 15:27 01/14/25 16:00 Temperature Pulse Rate 88 Respiratory Rate Blood Pressure 90/49 L Pulse Oximetry Oxygen Delivery Nasal Cannula Oxygen Flow Rate 1 01/14/25 20:00 01/14/25 20:00 01/14/25 20:18 Temperature Pulse Rate 88 92 Respiratory Rate 18 Blood Pressure Pulse Oximetry 93 Oxygen Delivery Nasal Cannula Oxygen Flow Rate 1 01/14/25 20:21 01/14/25 20:27 01/14/25 21:11 Temperature 98 F Pulse Rate 92 89 92 Respiratory Rate 18 18 Blood Pressure 124/67 Pulse Oximetry 93 96 Oxygen Delivery Nasal Cannula Oxygen Flow Rate 1 01/14/25 21:51 01/15/25 00:00 01/15/25 02:06 Temperature Pulse Rate 92 89 85 Respiratory Rate 18 Blood Pressure Pulse Oximetry Oxygen Delivery Oxygen Flow Rate 01/15/25 02:06 01/15/25 02:15 01/15/25 04:00 Temperature Pulse Rate 85 87 88 Respiratory Rate 18 Blood Pressure Pulse Oximetry 95 Oxygen Delivery Nasal Cannula Oxygen Flow Rate 1 01/15/25 05:13 Temperature 98.7 F Pulse Rate 86 Respiratory Rate 16 Blood Pressure 151/68 H Pulse Oximetry 94 Oxygen Delivery Oxygen Flow Rate Intake/Output Intake/Output: Intake & Output 01/12/25 01/13/25 01/14/25 01/15/25 23:59 23:59 23:59 23:59 Intake Total 240 244 997 8666 Output Total 0 3000 1731 Balance 240 -2350 -881 1300 Meds/Results Medications: Active Medications Generic Name Dose Route Start Last Admin Trade Name Freq PRN Reason Stop Dose Admin Acetaminophen 650 mg 01/12/25 17:13 Acetaminophen 325 Mg Tablet PO Q4H PRN Mild Pain (1-3) or Fever Hydrocodone Bitart/Acetaminophen 1 tab 01/12/25 14:26 Hydrocodone/Acetaminophen (*Crx) 5-325 Mg Tablet PO Q4H PRN Pain Rated 4-6 Albuterol/Ipratropium 3 ml 01/12/25 20:00 01/15/25 02:06 Ipratropium 0.5 Mg/Albuterol Sulfate 2.5 Mg Ampul.Neb 3 Ml INHALATION 3 ml Q6HRT MADIE Administration Allopurinol 100 mg 01/13/25 09:00 01/14/25 12:33 Allopurinol 100 Mg Tablet PO 100 mg DAILY MADIE Administration Amoxicillin/Clavulanate Potassium 1 tablet 01/14/25 09:00 01/14/25 21:49 Amoxicillin/Clavulanate K 875-125 Mg Tab PO 1 tablet Q12HR MADIE Administration Atorvastatin Calcium 80 mg 01/12/25 21:50 01/14/25 21:56 Atorvastatin 40 Mg Tablet PO 80 mg HS MADIE Administration Azithromycin 500 mg 01/14/25 09:00 01/14/25 12:32 Azithromycin 500 Mg Tablet PO 500 mg DAILY MADIE Administration Calcium Acetate 667 mg 01/13/25 08:00 01/14/25 17:12 Calcium Acetate 667 Mg Tablet PO 667 mg TIDWM MADIE Administration Carvedilol 25 mg 01/12/25 21:00 01/14/25 21:51 Carvedilol 25 Mg Tablet PO 25 mg Q12H MADIE Administration Clopidogrel Bisulfate 75 mg 01/13/25 09:00 01/14/25 12:32 Clopidogrel Bisulfate 75 Mg Tablet PO 75 mg DAILY MADIE Administration Dextrose 12.5 gm 01/12/25 17:13 Dextrose 50% 25 Gm/50 Ml Syringe IV PUSH PRN PRN Hypoglycemia Protocol Docusate Sodium 100 mg 01/12/25 17:13 Docusate Sodium 100 Mg Capsule PO BID PRN Constipation Ezetimibe 10 mg 01/13/25 09:00 01/14/25 12:32 Ezetimibe 10 Mg Tablet PO 10 mg DAILY MADIE Administration Furosemide 80 mg 01/13/25 09:00 01/14/25 12:32 Furosemide 80 Mg Tablet PO 80 mg QAM MADIE Administration Gabapentin 100 mg 01/13/25 09:00 01/14/25 12:27 Gabapentin 100 Mg Capsule PO Not Given DAILY MADIE Glucagon 1 mg 01/12/25 17:13 Glucagon For Inj 1 Mg Vial IM PRN PRN Hypoglycemia Protocol Glucose 15 gm 01/12/25 17:13 Glucose Oral Gel 15 Gm Of Glucse In 37.5 Gm Tube PO PRN PRN Hypoglycemia Protocol Dextrose 1,000 mls @ 100 mls/hr 01/12/25 17:13 Dextrose 5% 1,000 Ml IVPB PRN PRN Hypoglycemia Protocol Albumin Human 50 mls @ 999 mls/hr 01/13/25 06:44 01/14/25 10:42 Albutein IVPB 02/12/25 06:43 999 mls/hr Q10M PRN Administration HYPOTENSION Insulin Aspart 2 - 5 units 01/13/25 08:00 01/14/25 17:12 Insulin Aspart (*Bkc) 100 Units/Ml SUB-Q Not Given TIDWM MADIE Protocol Insulin Aspart 1 - 2 units 01/12/25 21:00 01/14/25 21:46 Insulin Aspart (*Bkc) 100 Units/Ml SUB-Q Not Given HS MADIE Protocol Insulin Glargine 25 units 01/12/25 21:50 01/14/25 21:56 Insulin Glargine (*Bkc) 100 Units/Ml SUB-Q 25 units HS MADIE Administration Irbesartan 150 mg 01/13/25 09:00 01/14/25 12:32 Irbesartan 150 Mg Tablet PO 150 mg DAILY MADIE Administration Isosorbide Dinitrate 5 mg 01/12/25 21:50 01/14/25 17:12 Isosorbide Dinitrate 5 Mg Tablet PO 5 mg BID MADIE Administration Lidocaine/Prilocaine 1 each 01/13/25 15:43 01/14/25 07:56 Lidocaine/Prilocaine Cream 2.5-2.5% Tube TOPICAL 1 each WITH DIALYSIS PRN Administration Pain Methocarbamol 500 mg 01/12/25 21:43 Methocarbamol 500 Mg Tablet PO QID PRN Muscle spasms Morphine Sulfate 2 mg 01/12/25 14:26 Morphine Sulfate (*Crx) 2 Mg/Ml Inj IV PUSH Q2H PRN Pain Rated 7-10 Nitroglycerin 0.4 mg 01/12/25 21:38 Nitroglycerin Sl 0.4 Mg Tablet SUBLINGUAL Q5MIN PRN chest pain Pantoprazole Sodium 40 mg 01/13/25 09:00 01/14/25 12:33 Pantoprazole 40 Mg Tablet PO 40 mg QAM MADIE Administration Prednisolone Acetate 1 drop 01/12/25 21:40 01/14/25 21:57 Prednisolone Acetate 1% Ophth 5 Ml EACH EYE 1 drop Q12HR MADIE Administration Promethazine HCl 12.5 mg 01/12/25 14:26 Promethazine Hcl 25 Mg/Ml Ampul IV PUSH Q6H PRN Nausea Vitamin D 125 mcg 01/13/25 09:00 01/14/25 12:32 Cholecalciferol (Vitamin D3) 125 Mcg (5,000 Units) Tablet PO 125 mcg DAILY MADIE Administration Radiology Results: ITS Impressions Chest X-Ray 01/12/25 10:53 Impression: 1: Bibasilar airspace disease with crowding of the pulmonary vessels due to low lung lines. Considerations include edema, atelectasis and/or pneumonia. Labs Labs: Laboratory Results - last 24 hr 01/14/25 01/14/25 01/14/25 07:03 07:55 12:21 WBC 6.4 RBC 3.00 L Hgb 9.9 L Hct 31.0 L MCV 103.3 H MCH 33.0 MCHC 31.9 L RDW 13.8 Plt Count 179 MPV 9.3 Immature Gran % (Auto) 0.6 H Neut % (Auto) 56.7 Lymph % (Auto) 27.4 [place] % (Auto) 12.6 H Eos % (Auto) 2.4 Baso % (Auto) 0.3 Lymph # (Auto) 1.74 [place] # (Auto) 0.8 H Eos # (Auto) 0.2 Baso # (Auto) 0.0 Abs Immat Gran (auto) 0.04 H Absolute Neuts (auto) 3.6 Absolute Nucleated RBC 0.000 Nucleated RBC % 0.0 % Immature Plt Fraction Orthotic/Prosthetic Clinician Sodium 140 Potassium 5.0 Chloride 102 Carbon Dioxide 26 Anion Gap 12 BUN 67 H D Creatinine 7.28 H Estim Creat Clear Calc 9 Estimated GFR 7 L Glucose 108 POC Capillary Glucose 109 H 88 Calcium 9.1 Phosphorus 5.3 H Total Bilirubin 0.7 Direct Bilirubin 0.0 AST 25 ALT 15 Alkaline Phosphatase 70 Ammonia Total Protein 7.3 Albumin 3.7 01/14/25 01/14/25 01/14/25 14:40 15:47 16:52 WBC RBC Hgb Hct MCV MCH MCHC RDW Plt Count MPV Immature Gran % (Auto) Neut % (Auto) Lymph % (Auto) [place] % (Auto) Eos % (Auto) Baso % (Auto) Lymph # (Auto) [place] # (Auto) Eos # (Auto) Baso # (Auto) Abs Immat Gran (auto) Absolute Neuts (auto) Absolute Nucleated RBC Nucleated RBC % % Immature Plt Fraction Sodium Potassium Chloride Carbon Dioxide Anion Gap BUN Creatinine Estim Creat Clear Calc Estimated GFR Glucose POC Capillary Glucose 145 H 193 H Calcium Phosphorus Total Bilirubin Direct Bilirubin AST ALT Alkaline Phosphatase Ammonia < 9 L Total Protein Albumin 01/15/25 05:04 WBC 6.4 RBC 2.98 L Hgb 9.9 L Hct 31.0 L MCV 104.0 H MCH 33.2 MCHC 31.9 L RDW 13.7 Plt Count 193 MPV 9.6 Immature Gran % (Auto) 0.6 H Neut % (Auto) 55.6 Lymph % (Auto) 29.2 [place] % (Auto) 14.1 H Eos % (Auto) 0.0 Baso % (Auto) 0.5 Lymph # (Auto) 1.86 [place] # (Auto) 0.9 H Eos # (Auto) 0.0 Baso # (Auto) 0.0 Abs Immat Gran (auto) 0.04 H Absolute Neuts (auto) 3.6 Absolute Nucleated RBC 0.030 H Nucleated RBC % 0.5 H % Immature Plt Fraction Sodium 140 Potassium 4.3 Chloride 105 Carbon Dioxide 24 Anion Gap 11 BUN 44 H D Creatinine 5.88 H Estim Creat Clear Calc 11 Estimated GFR 10 L Glucose 128 H POC Capillary Glucose Calcium 8.9 Phosphorus 4.2 Total Bilirubin 0.8 Direct Bilirubin AST 27 ALT 17 Alkaline Phosphatase 86 Ammonia Total Protein 7.0 Albumin 3.7 Quality VTE Prophylaxis VTE prophylaxis: mechanical ordered
[2025-01-15] MEDS: CALCIUM ACETATE 667 MG TABLET PO ×3 (08:47→17:22)
[2025-01-15] MEDS: AZITHROMYCIN 500 MG TABLET PO (08:48)
[2025-01-15] MEDS: CLOPIDOGREL BISULFATE 75 MG TABLET PO (08:48)
[2025-01-15] MEDS: CHOLECALCIFEROL (VITAMIN D3) 125 MCG (5,000 UNITS) TABLET PO (08:48)
[2025-01-15] MEDS: EZETIMIBE 10 MG TABLET PO (08:49)
[2025-01-15] MEDS: PANTOPRAZOLE 40 MG TABLET PO (08:49)
[2025-01-15] MEDS: ISOSORBIDE DINITRATE 5 MG TABLET PO ×2 (08:49→17:22)
[2025-01-15] MEDS: FUROSEMIDE 80 MG TABLET PO (08:49)
[2025-01-15] MEDS: prednisoLONE ACETATE 1% OPHTH 5 ML 1 DROP EACH EYE ×2 (08:50→20:35)
--- NOTE | 2025-01-15 10:35 | PM.PNNEP ---
Progress Note: A&P Assessment and Plan (1) End stage renal disease: Code(s): N18.6 - End stage renal disease Status: Chronic Assessment and Plan: HD yesterday continue dialysis schedule of T/T/S while hospitalized follow electrolytes, volume status, and clearance (2) Acute hypoxic respiratory failure: Code(s): J96.01 - Acute respiratory failure with hypoxia Status: Acute Assessment and Plan: slow improvement if not resolving as noted on presentation suspect multifactorial etiology: pneumonia mild fluid overload diastolic heart failure missed HD treatment this week (on 01/10) COPD weaned off supplemental oxygen continue current therapy as outlined (3) Pneumonia: Code(s): J18.9 - Pneumonia, unspecified organism Status: Acute Assessment and Plan: as suggested by admission imaging: CXR with bibasilar airspace disease with crowding of the pulmonary vessels due to low lung lines viral testing for influenza/RSV/COVID negative follow culture data on antibiotics (4) Chronic diastolic heart failure: Code(s): I50.32 - Chronic diastolic (congestive) heart failure Status: Acute Assessment and Plan: first noted in 2020 compensated with fluid removal with dialysis mild fluid overload/exacerbation due to missed treatment (on 01/10) s/p DUF session (on 01/13) with 3L fluid removal continue supportive therapy (5) Anemia: Qualifiers: Anemia type: unspecified type Qualified Code(s): D64.9 - Anemia, unspecified Code(s): D64.9 - Anemia, unspecified Status: Chronic Assessment and Plan: due to ESRD Epogen with HD follow trend of H/H (6) Hypertension: Qualifiers: Hypertension type: primary hypertension Qualified Code(s): I10 - Essential (primary) hypertension Code(s): I10 - Essential (primary) hypertension Status: Chronic Assessment and Plan: reasonable control at this time follow trend of hemodynamics (7) Chronic obstructive pulmonary disease: Qualifiers: COPD type: emphysema Emphysema type: unspecified Qualified Code(s): J43.9 - Emphysema, unspecified Code(s): J44.9 - Chronic obstructive pulmonary disease, unspecified Status: Chronic Assessment and Plan: no evidence of acute exacerbation maybe partly playing a role with #2 (8) Insulin dependent type 2 diabetes mellitus: Code(s): E11.9 - Type 2 diabetes mellitus without complications; 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 Subjective Date/time seen: 01/15/25 10:35 Interval history: Follow-up for end stage renal disease on hemodialysis. Tolerated dialysis treatment yesterday without any issues or problems; breathing/respiratory status appears to be slowly improving; weaned off supplemental oxygen; has been working with PT/OT and he seems to realize he may need rehab on discharge. Exam Narrative: General: elderly but WD/WN male in NAD Heart: normal S1 and S2; no rub Lungs: coarse breath sounds Abdomen: soft, nontender, nondistended, positive bowel sounds Extremities: no cyanosis or clubbing; no edema; s/p right AKA Skin: warm and intact Objective Data Vital Signs Vital Signs: Vital Signs Temp Pulse Resp BP Pulse Ox O2 Del Method O2 Flow Rate 01/15/25 09:25 83 148/70 H 93 01/15/25 08:48 83 01/15/25 08:00 85 18 01/15/25 07:50 89 18 01/15/25 07:50 92 Room Air 01/15/25 05:13 98.7 F 86 16 151/68 H 94 01/15/25 04:00 88 01/15/25 02:15 87 18 01/15/25 02:06 85 95 Nasal Cannula 1 01/15/25 02:06 85 18 01/15/25 00:00 89 01/14/25 21:51 92 01/14/25 21:11 98 F 92 18 124/67 96 01/14/25 20:27 89 18 01/14/25 20:21 92 93 Nasal Cannula 1 01/14/25 20:18 92 18 01/14/25 20:00 88 01/14/25 20:00 93 Nasal Cannula 1 01/14/25 16:00 88 01/14/25 15:27 90/49 L 01/14/25 14:45 Nasal Cannula 1 01/14/25 14:00 97.5 F L 91 18 106/52 L 95 01/14/25 13:32 Nasal Cannula 1 01/14/25 13:10 88 20 01/14/25 13:06 86 18 01/14/25 12:40 86 120/66 01/14/25 12:32 86 01/14/25 12:03 98.2 F 86 18 147/86 H 01/14/25 12:00 86 01/14/25 11:58 85 164/105 H 01/14/25 11:45 88 136/74 Intake/Output Intake/Output: Intake & Output 01/12/25 01/13/25 01/14/25 01/15/25 23:59 23:59 23:59 23:59 Intake Total 240 078 303 7486 Output Total 0 3000 1731 Balance 240 -2350 -881 1480 Meds/Results Medications: Active Medications Generic Name Dose Route Start Last Admin Trade Name Freq PRN Reason Stop Dose Admin Acetaminophen 650 mg 01/12/25 17:13 Acetaminophen 325 Mg Tablet PO Q4H PRN Mild Pain (1-3) or Fever Hydrocodone Bitart/Acetaminophen 1 tab 01/12/25 14:26 Hydrocodone/Acetaminophen (*Crx) 5-325 Mg Tablet PO Q4H PRN Pain Rated 4-6 Albuterol/Ipratropium 3 ml 01/12/25 20:00 01/15/25 07:48 Ipratropium 0.5 Mg/Albuterol Sulfate 2.5 Mg Ampul.Neb 3 Ml INHALATION 3 ml Q6HRT MADIE Administration Allopurinol 100 mg 01/13/25 09:00 01/15/25 08:47 Allopurinol 100 Mg Tablet PO 100 mg DAILY MADIE Administration Amoxicillin/Clavulanate Potassium 1 tablet 01/14/25 09:00 01/15/25 08:47 Amoxicillin/Clavulanate K 875-125 Mg Tab PO 1 tablet Q12HR MADIE Administration Atorvastatin Calcium 80 mg 01/12/25 21:50 01/14/25 21:56 Atorvastatin 40 Mg Tablet PO 80 mg HS MADIE Administration Azithromycin 500 mg 01/14/25 09:00 01/15/25 08:48 Azithromycin 500 Mg Tablet PO 500 mg DAILY MADIE Administration Calcium Acetate 667 mg 01/13/25 08:00 01/15/25 08:47 Calcium Acetate 667 Mg Tablet PO 667 mg TIDWM MADIE Administration Carvedilol 25 mg 01/12/25 21:00 01/15/25 08:48 Carvedilol 25 Mg Tablet PO 25 mg Q12H MADIE Administration Clopidogrel Bisulfate 75 mg 01/13/25 09:00 01/15/25 08:48 Clopidogrel Bisulfate 75 Mg Tablet PO 75 mg DAILY MADIE Administration Dextrose 12.5 gm 01/12/25 17:13 Dextrose 50% 25 Gm/50 Ml Syringe IV PUSH PRN PRN Hypoglycemia Protocol Docusate Sodium 100 mg 01/12/25 17:13 Docusate Sodium 100 Mg Capsule PO BID PRN Constipation Ezetimibe 10 mg 01/13/25 09:00 01/15/25 08:49 Ezetimibe 10 Mg Tablet PO 10 mg DAILY MADIE Administration Furosemide 80 mg 01/13/25 09:00 01/15/25 08:49 Furosemide 80 Mg Tablet PO 80 mg QAM MADIE Administration Gabapentin 100 mg 01/13/25 09:00 01/15/25 08:50 Gabapentin 100 Mg Capsule PO Not Given DAILY MADIE Glucagon 1 mg 01/12/25 17:13 Glucagon For Inj 1 Mg Vial IM PRN PRN Hypoglycemia Protocol Glucose 15 gm 01/12/25 17:13 Glucose Oral Gel 15 Gm Of Glucse In 37.5 Gm Tube PO PRN PRN Hypoglycemia Protocol Dextrose 1,000 mls @ 100 mls/hr 01/12/25 17:13 Dextrose 5% 1,000 Ml IVPB PRN PRN Hypoglycemia Protocol Albumin Human 50 mls @ 999 mls/hr 01/13/25 06:44 01/14/25 10:42 Albutein IVPB 02/12/25 06:43 999 mls/hr Q10M PRN Administration HYPOTENSION Insulin Aspart 2 - 5 units 01/13/25 08:00 01/15/25 08:38 Insulin Aspart (*Bkc) 100 Units/Ml SUB-Q Not Given TIDWM [facility] Protocol Insulin Aspart 1 - 2 units 01/12/25 21:00 01/14/25 21:46 Insulin Aspart (*Bkc) 100 Units/Ml SUB-Q Not Given HS [facility] Protocol Insulin Glargine 25 units 01/12/25 21:50 01/14/25 21:56 Insulin Glargine (*Bkc) 100 Units/Ml SUB-Q 25 units HS MADIE Administration Irbesartan 150 mg 01/13/25 09:00 01/14/25 12:32 Irbesartan 150 Mg Tablet PO 150 mg DAILY MADIE Administration Isosorbide Dinitrate 5 mg 01/12/25 21:50 01/15/25 08:49 Isosorbide Dinitrate 5 Mg Tablet PO 5 mg BID MADIE Administration Lidocaine/Prilocaine 1 each 01/13/25 15:43 01/14/25 07:56 Lidocaine/Prilocaine Cream 2.5-2.5% Tube TOPICAL 1 each WITH DIALYSIS PRN Administration Pain Methocarbamol 500 mg 01/12/25 21:43 Methocarbamol 500 Mg Tablet PO QID PRN Muscle spasms Morphine Sulfate 2 mg 01/12/25 14:26 Morphine Sulfate (*Crx) 2 Mg/Ml Inj IV PUSH Q2H PRN Pain Rated 7-10 Nitroglycerin 0.4 mg 01/12/25 21:38 Nitroglycerin Sl 0.4 Mg Tablet SUBLINGUAL Q5MIN PRN chest pain Pantoprazole Sodium 40 mg 01/13/25 09:00 01/15/25 08:49 Pantoprazole 40 Mg Tablet PO 40 mg QAM MADIE Administration Prednisolone Acetate 1 drop 01/12/25 21:40 01/15/25 08:50 Prednisolone Acetate 1% Ophth 5 Ml EACH EYE 1 drop Q12HR MADIE Administration Promethazine HCl 12.5 mg 01/12/25 14:26 Promethazine Hcl 25 Mg/Ml Ampul IV PUSH Q6H PRN Nausea Vitamin D 125 mcg 01/13/25 09:00 01/15/25 08:48 Cholecalciferol (Vitamin D3) 125 Mcg (5,000 Units) Tablet PO 125 mcg DAILY MADIE Administration Radiology Results: ITS Impressions Chest X-Ray 01/12/25 10:53 Impression: 1: Bibasilar airspace disease with crowding of the pulmonary vessels due to low lung lines. Considerations include edema, atelectasis and/or pneumonia. Labs Labs: Laboratory Tests 01/15/25 05:04 01/15/25 05:04 Calcium 8.9 Phosphorus 4.2 Total Bilirubin 0.8 AST 27 ALT 17 Alkaline Phosphatase 86 Total Protein 7.0 Albumin 3.7 Microbiology 01/12/25 15:54 Blood Blood Culture - Preliminary 01/12/25 14:48 Blood Blood Culture - Preliminary
[2025-01-15] MEDS: ATORVASTATIN 40 MG TABLET 80 MG PO (20:35)
[2025-01-15] MEDS: INSULIN GLARGINE (*BKC) 100 UNITS/ML 25 UNITS SUB-Q (20:59)
[2025-01-16] VITALS (18 sets, daily range): BP systolic 126–164; BP diastolic 58–75; PULSE 78–90; RESP 16–20; TEMP 36.2–36.4; O2SAT 91–95
[2025-01-16] MEDS: IPRATROPIUM 0.5 MG/ALBUTEROL SULFATE 2.5 MG AMPUL.NEB 3 ML INHALATION ×4 (03:05→20:23)
[2025-01-16 05:19] LABS: Hematocrit 29.9 % (42.0-52.0); Hemoglobin 9.5 g/dL (14.0-18.0); Immature Granulocyte Percent A 0.6 % (0-0.5); Lymphocytes Absolute Auto 1.79 K/mm3 (0.9-3.2); Mean Corpuscular HGB Conc 31.8 g/dl (32-36); Mean Corpuscular Hemoglobin 33.2 pg (26-34); Mean Corpuscular Volume 104.5 fl (80-100); Nucleated Red Blood Cells Absolute Auto 0.000 K/mm3 (0.0-0.012); Nucleated Red Blood Cells Perc 0.0 % (0.0-0.2); Platelet Count Result 183 k/mm3 (150-375); Red Blood Count 2.86 M/mm3 (4.6-6.20); White Blood Count 6.4 K/mm3 (4.5-10.0)
[2025-01-16 05:45] LABS: Alanine Aminotransferase 16 U/L (6-50); Albumin Level 3.6 g/dL (3.5-5.1); Alkaline Phosphatase 77 U/L (38-126); Anion Gap 10 mmol/L (4-12); Aspartate Amino Transferase 23 U/L (17-59); Bilirubin,Total 1.2 mg/dL (0.2-1.3); Blood Urea Nitrogen 57 mg/dL (9-20); Calcium 9.0 mg/dL (8.4-10.2); Carbon Dioxide 24 mmol/L (22-30); Chloride 101 mmol/L (98-107); Estimated CRCL calculation 8 ml/min; Estimated Glomerular Filt Rate 7; Glucose 125 mg/dL (65-110); Potassium 4.5 mmol/L (3.4-5.0); Sodium 135 mmol/L (137-145); Total Protein 6.8 g/dL (6.3-8.2)
[2025-01-16] MEDS: HYDROcodone/acetaminophen (*CRX) 5-325 MG TABLET 1 TAB PO ×2 (05:54→21:18)
--- NOTE | 2025-01-16 08:42 | P.CDI_ITS ---
CDI Query Clarification Request Please clarify acuity of heart failure if known. * Acute * Chronic * Acute on Chronic * Unknown The medical chart reflects the following: hospitalist documented: (3) Diastolic congestive heart failure: Qualifiers: Heart failure chronicity: unspecified Qualified Code(s): I50.30 - Unspecified diastolic (congestive) heart failure Code(s): I50.30 - Unspecified diastolic (congestive) heart failure Status: Acute Assessment and Plan: * HD Thursday * Pulmonary edema on x-ray * IV Lasix x1 * Dialysis * Continue p.o. Lasix Nephrology documented: (2) Acute hypoxic respiratory failure: Code(s): J96.01 - Acute respiratory failure with hypoxia Status: Acute Assessment and Plan: * as noted on presentation * suspect multifactorial etiology: * pneumonia * mild fluid overload * diastolic heart failure * missed HD treatment this week (on 01/10) * COPD * wean supplemental oxygen as tolerated * continue current therapy as outlined (4) Chronic diastolic heart failure: Code(s): I50.32 - Chronic diastolic (congestive) heart failure Status: Acute Assessment and Plan: * first noted in 2020 * compensated with fluid removal with dialysis * mild fluid overload/exacerbation due to missed treatment (on 01/10) * s/p DUF session (on 01/13) with 3L fluid removal * continue supportive therapy 01/12 cxr:Impression: 1: Bibasilar airspace disease with crowding of the pulmonary vessels due to low lung lines. Considerations include edema, atelectasis and/or pneumonia. 01/12 BNP: 16,200 IV Lasix x1, now on PO lasix <Monika Benavidez RN - Last Filed: 01/16/25 08:46> Clarified Diagnosis Clarified Diagnosis: Unspecified classification of heart failure <Paul Balderrama PA-C - Last Filed: 01/16/25 09:59>
--- NOTE | 2025-01-16 08:42 | WPDCDIQUERY2 ---
CDI Query Clarification Request Please clarify acuity of heart failure if known. Acute Chronic Acute on Chronic Unknown The medical chart reflects the following: hospitalist documented: (3) Diastolic congestive heart failure: Qualifiers: Heart failure chronicity: unspecified Qualified Code(s): I50.30 - Unspecified diastolic (congestive) heart failure Code(s): I50.30 - Unspecified diastolic (congestive) heart failure Status: Acute Assessment and Plan: HD Thursday Pulmonary edema on x-ray IV Lasix x1 Dialysis Continue p.o. Lasix Nephrology documented: (2) Acute hypoxic respiratory failure: Code(s): J96.01 - Acute respiratory failure with hypoxia Status: Acute Assessment and Plan: as noted on presentation suspect multifactorial etiology: pneumonia mild fluid overload diastolic heart failure missed HD treatment this week (on 01/10) COPD wean supplemental oxygen as tolerated continue current therapy as outlined (4) Chronic diastolic heart failure: Code(s): I50.32 - Chronic diastolic (congestive) heart failure Status: Acute Assessment and Plan: first noted in 2020 compensated with fluid removal with dialysis mild fluid overload/exacerbation due to missed treatment (on 01/10) s/p DUF session (on 01/13) with 3L fluid removal continue supportive therapy 01/12 cxr:Impression: 1: Bibasilar airspace disease with crowding of the pulmonary vessels due to low lung lines. Considerations include edema, atelectasis and/or pneumonia. 01/12 BNP: 16,200 IV Lasix x1, now on PO lasix <Monika Benavidez RN - Last Filed: 01/16/25 08:46> Clarified Diagnosis Clarified Diagnosis: Unspecified classification of heart failure <Paul Balderrama PA-C - Last Filed: 01/16/25 09:59>
[2025-01-16] MEDS: prednisoLONE ACETATE 1% OPHTH 5 ML 1 DROP EACH EYE ×2 (09:22→20:54)
[2025-01-16] MEDS: AZITHROMYCIN 500 MG TABLET PO (09:22)
[2025-01-16] MEDS: ISOSORBIDE DINITRATE 5 MG TABLET PO ×2 (09:22→17:01)
[2025-01-16] MEDS: CLOPIDOGREL BISULFATE 75 MG TABLET PO (09:22)
[2025-01-16] MEDS: CHOLECALCIFEROL (VITAMIN D3) 125 MCG (5,000 UNITS) TABLET PO (09:22)
[2025-01-16] MEDS: PANTOPRAZOLE 40 MG TABLET PO (09:22)
[2025-01-16] MEDS: EZETIMIBE 10 MG TABLET PO (09:22)
[2025-01-16] MEDS: FUROSEMIDE 80 MG TABLET PO (09:22)
[2025-01-16] MEDS: CALCIUM ACETATE 667 MG TABLET PO ×2 (09:22→17:01)
--- NOTE | 2025-01-16 10:30 | P.PNIM_ITS ---
Progress Note: A&P Assessment and Plan (1) ESRD needing dialysis: Code(s): N18.6 - End stage renal disease; Z99.2 - Dependence on renal dialysis Status: Acute Assessment and Plan: * Fluid overload on exam upon admission * Dialysis T/T/S * Nephrology consulted, appreciate further recommendations * HD on 01/12 - will likely go for another session today 01/13 * Continue phosphate binders * Monitor daily labs * Nephrology consult - appreciate further recommendations * Kidney function near baseline * Unchanged, stable - continue Dialysis while admitted (2) Pneumonia: Qualifiers: Laterality: unspecified laterality Lung location: unspecified part of lung Pneumonia type: due to unspecified organism Qualified Code(s): J18.9 - Pneumonia, unspecified organism Code(s): J18.9 - Pneumonia, unspecified organism Status: Acute Assessment and Plan: * CXR: Bibasilar airspace disease with crowding of the pulmonary vessels due to low lung lines. Considerations include edema, atelectasis and/or pneumonia. * started on CAP tx: azithromycin & ceftriaxone * Viral PCR: negative for Flu/COVID/RSV * Consider ordering legionella, mycoplasma and pneumococcal * no supplemental O2 requirement * supportive treatment * trend labs * Monitor vital signs, I&Os, neuro status and patient is a fall risk * Follow WBC, serum electrolytes, temperature curves and cultures * Send sputum cultures * Gentle IV fluid resuscitation * Guaifenesin * DuoNebs * Continue Antibiotics * Endorsing persistent productive cough - obtain culture and monitor physical exam/labs * Remains afebrile without leukocytosis or productive lung sounds (3) Diastolic congestive heart failure: Qualifiers: Heart failure chronicity: unspecified Qualified Code(s): I50.30 - Unspecified diastolic (congestive) heart failure Code(s): I50.30 - Unspecified diastolic (congestive) heart failure Status: Acute Assessment and Plan: * HD Thursday * Pulmonary edema on x-ray * IV Lasix x1 * Dialysis * Continue p.o. Lasix (4) Type 2 diabetes mellitus: Qualifiers: Diabetes mellitus complication status: with hyperglycemia Diabetes mellitus long-term insulin use: with long-term use Qualified Code(s): E11.65 - Type 2 diabetes mellitus with hyperglycemia; Z79.4 - termination clerk (current) use of insulin Code(s): E11.9 - Type 2 diabetes mellitus without complications Status: Acute Assessment and Plan: * Diabetic renal diet * Accu-Cheks a.c. HS * SSI and Lantus * Continue Zetia (5) Coronary artery disease: Qualifiers: Associated angina: without angina Coronary Disease-Associated Artery/Lesion type: [place] artery [place] vs. transplanted heart: [place] heart Qualified Code(s): I25.10 - Atherosclerotic heart disease of [place] coronary artery without angina pectoris Code(s): I25.10 - Atherosclerotic heart disease of [place] coronary artery without angina pectoris Status: Chronic Assessment and Plan: * Continue Lipitor, Zetia, isosorbide, nitro, and carvedilol (6) Weakness: Code(s): R53.1 - Weakness Status: Acute Assessment and Plan: * Multifactorial * Likely 2/2 to underlying infection, ESRD/missed dialysis * PT/OT evals - recommend further rehab (SNF, [facility]) * Working with [facility] regarding placement - pt needs dialysis T/T/S, facility will need to work with this schedule * Still waiting on placement - [facility] has sent referrals to [facility] and [facility] Subjective Date/time seen: 01/16/25 10:30 Interval history: 69-year-old male past medical history of COPD, diabetes type 2, hypertension, end-stage renal disease on dialysis and CAD presents the hospital with shortness of breath. 01/16/2025 Patient sitting comfortably in bed at time of exam. States that he feels great today, denies any CP, SOB, n/v, or abdominal pain. CBC remains unchanged, kidney function still impaired but this is chronic and pt will continue to receive dialysis while admitted. Working with [facility] regarding SNF placement after pt worked with PT/OT and realized that he does not feel ready to go home without having further rehab. Pt otherwise stable, remains afebrile without leukocytosis. Review of Systems Review of Systems: 12 systems were reviewed and are negativ e except for as per HPI. Exam Narrative: General: well appearing, appears stated age. HEENT: normocephalic, atraumatic. Mucous membranes moist. EOMI, PERRLA, bilateral sclera anicteric, no conjunctival injection. Neck supple without JVD, lymphadenopathy, or bruit. Respiratory: clear to ascultation bilaterally. No rales/rhonic/wheezes. Cardiovascular: Regular rate and rhythm, normal S1-S2 upon ascultation. No mu rmurs, rubs, or clicks. PMI is nondisplaced, capillary refill less than 3 second. Abdomen: Soft, round, no pulsatile masses, nondistended and nontender. No rebound, no guarding. No CVA tenderness, no hepatosplenomegaly. Bowel sounds present to all four quadrants. No high pitch or tinkling sounds, resonant to percussion. Extremities: No cyanosis, clubbing, or edema present. Pulses are palpable 2/2. Active ROM to all four extremities. Neuro: Alert and orientated x 4. PERRLA. Cranial nerves 2-12 intact without focal deficit. Skin: Warm, dry, and intact, without rash, erythema, or lesion. Psych: pleasant, cooperative, normal speech, normal affect, no hallucinations, no dysarthia Objective Data Vital Signs Vital Signs: Vital Signs - 24 hr 01/15/25 12:00 01/15/25 13:38 01/15/25 13:47 Temperature Pulse Rate 86 84 80 Respiratory Rate 18 18 Blood Pressure Pulse Oximetry Oxygen Delivery Fraction of Inspired Oxygen 01/15/25 14:00 01/15/25 16:00 01/15/25 19:52 Temperature 97.3 F L Pulse Rate 81 70 84 Respiratory Rate 18 14 Blood Pressure 112/53 L Pulse Oximetry 95 Oxygen Delivery Fraction of Inspired Oxygen 01/15/25 19:52 01/15/25 20:00 01/15/25 20:00 Temperature Pulse Rate 82 82 85 Respiratory Rate 14 14 0 L Blood Pressure Pulse Oximetry 92 96 Oxygen Delivery Room Air Room Air Fraction of Inspired Oxygen 24 01/15/25 20:00 01/15/25 20:36 01/15/25 21:24 Temperature 97.8 F Pulse Rate 85 81 85 Respiratory Rate 0 L Blood Pressure 160/81 H Pulse Oximetry 96 Oxygen Delivery Fraction of Inspired Oxygen 01/15/25 23:58 01/16/25 03:05 01/16/25 03:58 Temperature Pulse Rate 78 88 78 Respiratory Rate 16 Blood Pressure Pulse Oximetry Oxygen Delivery Fraction of Inspired Oxygen 01/16/25 05:44 01/16/25 07:36 01/16/25 07:36 Temperature 97.5 F L Pulse Rate 90 86 86 Respiratory Rate 16 20 20 Blood Pressure 164/75 H Pulse Oximetry 92 91 Oxygen Delivery Room Air Fraction of Inspired Oxygen 01/16/25 07:43 01/16/25 08:00 01/16/25 09:20 Temperature Pulse Rate 78 86 Respiratory Rate 20 Blood Pressure Pulse Oximetry 93 Oxygen Delivery Room Air Fraction of Inspired Oxygen 01/16/25 09:22 Temperature Pulse Rate 80 Respiratory Rate Blood Pressure Pulse Oximetry Oxygen Delivery Fraction of Inspired Oxygen Intake/Output Intake/Output: Intake & Output 01/13/25 01/14/25 01/15/25 01/16/25 23:59 23:59 23:59 23:59 Intake Total 744 581 8814 320 Output Total 3000 1731 400 Balance -1449 -871 1780 -80 Meds/Results Medications: Active Medications Generic Name Dose Route Start Last Admin Trade Name Freq PRN Reason Stop Dose Admin Acetaminophen 650 mg 01/12/25 17:13 Acetaminophen 325 Mg Tablet PO Q4H PRN Mild Pain (1-3) or Fever Hydrocodone Bitart/Acetaminophen 1 tab 01/12/25 14:26 01/16/25 05:54 Hydrocodone/Acetaminophen (*Crx) 5-325 Mg Tablet PO 1 tab Q4H PRN Administration Pain Rated 4-6 Albuterol/Ipratropium 3 ml 01/12/25 20:00 01/16/25 07:35 Ipratropium 0.5 Mg/Albuterol Sulfate 2.5 Mg Ampul.Neb 3 Ml INHALATION 3 ml Q6HRT MADIE Administration Allopurinol 100 mg 01/13/25 09:00 01/16/25 09:22 Allopurinol 100 Mg Tablet PO 100 mg DAILY MADIE Administration Amoxicillin/Clavulanate Potassium 1 tablet 01/14/25 09:00 01/16/25 09:22 Amoxicillin/Clavulanate K 875-125 Mg Tab PO 1 tablet Q12HR MADIE Administration Atorvastatin Calcium 80 mg 01/12/25 21:50 01/15/25 20:35 Atorvastatin 40 Mg Tablet PO 80 mg HS MADIE Administration Azithromycin 500 mg 01/14/25 09:00 01/16/25 09:22 Azithromycin 500 Mg Tablet PO 500 mg DAILY MADIE Administration Calcium Acetate 667 mg 01/13/25 08:00 01/16/25 09:22 Calcium Acetate 667 Mg Tablet PO 667 mg TIDWM MADIE Administration Carvedilol 25 mg 01/12/25 21:00 01/16/25 09:22 Carvedilol 25 Mg Tablet PO 25 mg Q12H MADIE Administration Clopidogrel Bisulfate 75 mg 01/13/25 09:00 01/16/25 09:22 Clopidogrel Bisulfate 75 Mg Tablet PO 75 mg DAILY MADIE Administration Dextrose 12.5 gm 01/12/25 17:13 Dextrose 50% 25 Gm/50 Ml Syringe IV PUSH PRN PRN Hypoglycemia Protocol Docusate Sodium 100 mg 01/12/25 17:13 Docusate Sodium 100 Mg Capsule PO BID PRN Constipation Ezetimibe 10 mg 01/13/25 09:00 01/16/25 09:22 Ezetimibe 10 Mg Tablet PO 10 mg DAILY MADIE Administration Furosemide 80 mg 01/13/25 09:00 01/16/25 09:22 Furosemide 80 Mg Tablet PO 80 mg QAM MADIE Administration Gabapentin 100 mg 01/13/25 09:00 01/16/25 09:24 Gabapentin 100 Mg Capsule PO Not Given DAILY MADIE Glucagon 1 mg 01/12/25 17:13 Glucagon For Inj 1 Mg Vial IM PRN PRN Hypoglycemia Protocol Glucose 15 gm 01/12/25 17:13 Glucose Oral Gel 15 Gm Of Glucse In 37.5 Gm Tube PO PRN PRN Hypoglycemia Protocol Dextrose 1,000 mls @ 100 mls/hr 01/12/25 17:13 Dextrose 5% 1,000 Ml IVPB PRN PRN Hypoglycemia Protocol Albumin Human 50 mls @ 999 mls/hr 01/13/25 06:44 01/14/25 10:42 Albutein IVPB 02/12/25 06:43 999 mls/hr Q10M PRN Administration HYPOTENSION Insulin Aspart 2 - 5 units 01/13/25 08:00 01/16/25 07:48 Insulin Aspart (*Bkc) 100 Units/Ml SUB-Q Not Given TIDWM MADIE Protocol Insulin Aspart 1 - 2 units 01/12/25 21:00 01/15/25 20:57 Insulin Aspart (*Bkc) 100 Units/Ml SUB-Q Not Given HS MADIE Protocol Insulin Glargine 25 units 01/12/25 21:50 01/15/25 20:59 Insulin Glargine (*Bkc) 100 Units/Ml SUB-Q 25 units HS MADIE Administration Irbesartan 150 mg 01/13/25 09:00 01/14/25 12:32 Irbesartan 150 Mg Tablet PO 150 mg DAILY MADIE Administration Isosorbide Dinitrate 5 mg 01/12/25 21:50 01/16/25 09:22 Isosorbide Dinitrate 5 Mg Tablet PO 5 mg BID MADIE Administration Lidocaine/Prilocaine 1 each 01/13/25 15:43 01/14/25 07:56 Lidocaine/Prilocaine Cream 2.5-2.5% Tube TOPICAL 1 each WITH DIALYSIS PRN Administration Pain Methocarbamol 500 mg 01/12/25 21:43 Methocarbamol 500 Mg Tablet PO QID PRN Muscle spasms Morphine Sulfate 2 mg 01/12/25 14:26 Morphine Sulfate (*Crx) 2 Mg/Ml Inj IV PUSH Q2H PRN Pain Rated 7-10 Nitroglycerin 0.4 mg 01/12/25 21:38 Nitroglycerin Sl 0.4 Mg Tablet SUBLINGUAL Q5MIN PRN chest pain Pantoprazole Sodium 40 mg 01/13/25 09:00 01/16/25 09:22 Pantoprazole 40 Mg Tablet PO 40 mg QAM MADIE Administration Prednisolone Acetate 1 drop 01/12/25 21:40 01/16/25 09:22 Prednisolone Acetate 1% Ophth 5 Ml EACH EYE 1 drop Q12HR MADIE Administration Promethazine HCl 12.5 mg 01/12/25 14:26 Promethazine Hcl 25 Mg/Ml Ampul IV PUSH Q6H PRN Nausea Vitamin D 125 mcg 01/13/25 09:00 01/16/25 09:22 Cholecalciferol (Vitamin D3) 125 Mcg (5,000 Units) Tablet PO 125 mcg DAILY MADIE Administration Radiology Results: ITS Impressions Chest X-Ray 01/12/25 10:53 Impression: 1: Bibasilar airspace disease with crowding of the pulmonary vessels due to low lung lines. Considerations include edema, atelectasis and/or pneumonia. Labs Labs: Laboratory Results - last 24 hr 01/15/25 01/15/25 01/15/25 11:38 17:10 20:37 WBC RBC Hgb Hct MCV MCH MCHC RDW Plt Count MPV Immature Gran % (Auto) Neut % (Auto) Lymph % (Auto) [place] % (Auto) Eos % (Auto) Baso % (Auto) Lymph # (Auto) [place] # (Auto) Eos # (Auto) Baso # (Auto) Abs Immat Gran (auto) Absolute Neuts (auto) Absolute Nucleated RBC Nucleated RBC % Sodium Potassium Chloride Carbon Dioxide Anion Gap BUN Creatinine Estim Creat Clear Calc Estimated GFR Glucose POC Capillary Glucose 108 H 130 H 119 H Calcium Phosphorus Total Bilirubin AST ALT Alkaline Phosphatase Total Protein Albumin 01/16/25 01/16/25 04:54 07:38 WBC 6.4 RBC 2.86 L Hgb 9.5 L Hct 29.9 L MCV 104.5 H MCH 33.2 MCHC 31.8 L RDW 13.6 Plt Count 183 MPV 9.4 Immature Gran % (Auto) 0.6 H Neut % (Auto) 55.7 Lymph % (Auto) 27.8 [place] % (Auto) 13.0 H Eos % (Auto) 2.6 Baso % (Auto) 0.3 Lymph # (Auto) 1.79 [place] # (Auto) 0.8 H Eos # (Auto) 0.2 Baso # (Auto) 0.0 Abs Immat Gran (auto) 0.04 H Absolute Neuts (auto) 3.6 Absolute Nucleated RBC 0.000 Nucleated RBC % 0.0 Sodium 135 L Potassium 4.5 Chloride 101 Carbon Dioxide 24 Anion Gap 10 BUN 57 H D Creatinine 7.72 H Estim Creat Clear Calc 8 Estimated GFR 7 L Glucose 125 H POC Capillary Glucose 119 H Calcium 9.0 Phosphorus 4.9 H Total Bilirubin 1.2 AST 23 ALT 16 Alkaline Phosphatase 77 Total Protein 6.8 Albumin 3.6 Quality VTE Prophylaxis VTE prophylaxis: mechanical ordered
--- NOTE | 2025-01-16 11:22 | P.PNNP_ITS ---
Progress Note: A&P Assessment and Plan (1) End stage renal disease: Code(s): N18.6 - End stage renal disease Status: Chronic Assessment and Plan: * HD tomorrow * continue dialysis schedule of T/T/S while hospitalized * follow electrolytes, volume status, and clearance (2) Acute hypoxic respiratory failure: Code(s): J96.01 - Acute respiratory failure with hypoxia Status: Acute Assessment and Plan: * resolved * as noted on presentation * suspect multifactorial etiology: * pneumonia * mild fluid overload * diastolic heart failure * missed HD treatment this week (on 01/10) * COPD * weaned off supplemental oxygen * continue current therapy as outlined (3) Pneumonia: Code(s): J18.9 - Pneumonia, unspecified organism Status: Acute Assessment and Plan: * as suggested by admission imaging: * CXR with bibasilar airspace disease with crowding of the pulmonary vessels due to low lung lines * viral testing for influenza/RSV/COVID negative * follow culture data * on antibiotics (4) Chronic diastolic heart failure: Code(s): I50.32 - Chronic diastolic (congestive) heart failure Status: Acute Assessment and Plan: * first noted in 2020 * compensated with fluid removal with dialysis * mild fluid overload/exacerbation due to missed treatment (on 01/10) * s/p DUF session (on 01/13) with 3L fluid removal * continue supportive therapy (5) Anemia: Qualifiers: Anemia type: unspecified type Qualified Code(s): D64.9 - Anemia, unspecified Code(s): D64.9 - Anemia, unspecified Status: Chronic Assessment and Plan: * due to ESRD * Epogen with HD * follow trend of H/H (6) Hypertension: Qualifiers: Hypertension type: primary hypertension Qualified Code(s): I10 - Essential (primary) hypertension Code(s): I10 - Essential (primary) hypertension Status: Chronic Assessment and Plan: * reasonable control at this time * follow trend of hemodynamics (7) 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 L Subjective Date/time seen: 01/16/25 11:22 Interval history: Follow-up for end stage renal disease on hemodialysis. No new issues or problems to report at this time; breathing/respiratory status remains stable; no acute issues/events overnight or earlier this morning; overall, in comparison to admission, he feels reasonably well. Exam 2 Narrative: General: elderly but WD/WN male in NAD Heart: normal S1 and S2; no rub Lungs: coarse breath sounds Abdomen: soft, nontender, nondistended, positive bowel sounds Extremities: no cyanosis or clubbing; no edema; s/p right AKA Skin: no rash Objective Data Vital Signs Vital Signs: Vital Signs Temp Pulse Resp BP Pulse Ox O2 Del Method FiO2 01/16/25 09:22 80 01/16/25 09:20 93 Room Air 01/16/25 08:00 86 01/16/25 07:43 78 20 01/16/25 07:36 86 20 01/16/25 07:36 86 20 91 Room Air 01/16/25 05:44 97.5 F L 90 16 164/75 H 92 01/16/25 03:58 78 01/16/25 03:05 88 16 01/15/25 23:58 78 01/15/25 21:24 97.8 F 85 0 L 160/81 H 96 01/15/25 20:36 81 01/15/25 20:00 85 01/15/25 20:00 85 0 L 96 Room Air 24 01/15/25 20:00 82 14 01/15/25 19:52 82 14 92 Room Air 01/15/25 19:52 84 14 Intake/Output Intake/Output: Intake & Output 01/13/25 01/14/25 01/15/25 01/16/25 23:59 23:59 23:59 23:59 Intake Total 302 725 5992 800 Output Total 3000 1731 400 Balance -2350 -881 1780 400 Meds/Results Medications: Active Medications Generic Name Dose Route Start Last Admin Trade Name Freq PRN Reason Stop Dose Admin Acetaminophen 650 mg 01/12/25 17:13 Acetaminophen 325 Mg Tablet PO Q4H PRN Mild Pain (1-3) or Fever Hydrocodone Bitart/Acetaminophen 1 tab 01/12/25 14:26 01/16/25 05:54 Hydrocodone/Acetaminophen (*Crx) 5-325 Mg Tablet PO 1 tab Q4H PRN Administration Pain Rated 4-6 Albuterol/Ipratropium 3 ml 01/12/25 20:00 01/16/25 13:54 Ipratropium 0.5 Mg/Albuterol Sulfate 2.5 Mg Ampul.Neb 3 Ml INHALATION 3 ml Q6HRT MADIE Administration Allopurinol 100 mg 01/13/25 09:00 01/16/25 09:22 Allopurinol 100 Mg Tablet PO 100 mg DAILY MADIE Administration Amoxicillin/Clavulanate Potassium 1 tablet 01/14/25 09:00 01/16/25 09:22 Amoxicillin/Clavulanate K 875-125 Mg Tab PO 1 tablet Q12HR MADIE Administration Atorvastatin Calcium 80 mg 01/12/25 21:50 01/15/25 20:35 Atorvastatin 40 Mg Tablet PO 80 mg HS MADIE Administration Azithromycin 500 mg 01/14/25 09:00 01/16/25 09:22 Azithromycin 500 Mg Tablet PO 500 mg DAILY MADIE Administration Calcium Acetate 667 mg 01/13/25 08:00 01/16/25 17:01 Calcium Acetate 667 Mg Tablet PO 667 mg TIDWM MADIE Administration Carvedilol 25 mg 01/12/25 21:00 01/16/25 09:22 Carvedilol 25 Mg Tablet PO 25 mg Q12H MADIE Administration Clopidogrel Bisulfate 75 mg 01/13/25 09:00 01/16/25 09:22 Clopidogrel Bisulfate 75 Mg Tablet PO 75 mg DAILY MADIE Administration Dextrose 12.5 gm 01/12/25 17:13 Dextrose 50% 25 Gm/50 Ml Syringe IV PUSH PRN PRN Hypoglycemia Protocol Docusate Sodium 100 mg 01/12/25 17:13 Docusate Sodium 100 Mg Capsule PO BID PRN Constipation Ezetimibe 10 mg 01/13/25 09:00 01/16/25 09:22 Ezetimibe 10 Mg Tablet PO 10 mg DAILY MADIE Administration Furosemide 80 mg 01/13/25 09:00 01/16/25 09:22 Furosemide 80 Mg Tablet PO 80 mg QAM MADIE Administration Gabapentin 100 mg 01/13/25 09:00 01/16/25 09:24 Gabapentin 100 Mg Capsule PO Not Given DAILY MADIE Glucagon 1 mg 01/12/25 17:13 Glucagon For Inj 1 Mg Vial IM PRN PRN Hypoglycemia Protocol Glucose 15 gm 01/12/25 17:13 Glucose Oral Gel 15 Gm Of Glucse In 37.5 Gm Tube PO PRN PRN Hypoglycemia Protocol Dextrose 1,000 mls @ 100 mls/hr 01/12/25 17:13 Dextrose 5% 1,000 Ml IVPB PRN PRN Hypoglycemia Protocol Albumin Human 50 mls @ 999 mls/hr 01/13/25 06:44 01/14/25 10:42 Albutein IVPB 02/12/25 06:43 999 mls/hr Q10M PRN Administration HYPOTENSION Insulin Aspart 2 - 5 units 01/13/25 08:00 01/16/25 17:01 Insulin Aspart (*Bkc) 100 Units/Ml SUB-Q Not Given TID[facility] Protocol Insulin Aspart 1 - 2 units 01/12/25 21:00 01/15/25 20:57 Insulin Aspart (*Bkc) 100 Units/Ml SUB-Q Not Given HS [facility] Protocol Insulin Glargine 25 units 01/12/25 21:50 01/15/25 20:59 Insulin Glargine (*Bkc) 100 Units/Ml SUB-Q 25 units HS MADIE Administration Irbesartan 150 mg 01/13/25 09:00 01/14/25 12:32 Irbesartan 150 Mg Tablet PO 150 mg DAILY MADIE Administration Isosorbide Dinitrate 5 mg 01/12/25 21:50 01/16/25 17:01 Isosorbide Dinitrate 5 Mg Tablet PO 5 mg BID MADIE Administration Lidocaine/Prilocaine 1 each 01/13/25 15:43 01/14/25 07:56 Lidocaine/Prilocaine Cream 2.5-2.5% Tube TOPICAL 1 each WITH DIALYSIS PRN Administration Pain Methocarbamol 500 mg 01/12/25 21:43 Methocarbamol 500 Mg Tablet PO QID PRN Muscle spasms Morphine Sulfate 2 mg 01/12/25 14:26 Morphine Sulfate (*Crx) 2 Mg/Ml Inj IV PUSH Q2H PRN Pain Rated 7-10 Nitroglycerin 0.4 mg 01/12/25 21:38 Nitroglycerin Sl 0.4 Mg Tablet SUBLINGUAL Q5MIN PRN chest pain Pantoprazole Sodium 40 mg 01/13/25 09:00 01/16/25 09:22 Pantoprazole 40 Mg Tablet PO 40 mg QAM MADIE Administration Prednisolone Acetate 1 drop 01/12/25 21:40 01/16/25 09:22 Prednisolone Acetate 1% Ophth 5 Ml EACH EYE 1 drop Q12HR MADIE Administration Promethazine HCl 12.5 mg 01/12/25 14:26 Promethazine Hcl 25 Mg/Ml Ampul IV PUSH Q6H PRN Nausea Vitamin D 125 mcg 01/13/25 09:00 01/16/25 09:22 Cholecalciferol (Vitamin D3) 125 Mcg (5,000 Units) Tablet PO 125 mcg DAILY MADIE Administration Radiology Results: ITS Impressions Chest X-Ray 01/12/25 10:53 Impression: 1: Bibasilar airspace disease with crowding of the pulmonary vessels due to low lung lines. Considerations include edema, atelectasis and/or pneumonia. Labs Labs: Laboratory Tests 01/16/25 04:54 01/16/25 04:54 Calcium 9.0 Phosphorus 4.9 H Total Bilirubin 1.2 AST 23 ALT 16 Alkaline Phosphatase 77 Total Protein 6.8 Albumin 3.6
[2025-01-16] MEDS: ATORVASTATIN 40 MG TABLET 80 MG PO (20:44)
[2025-01-16] MEDS: INSULIN GLARGINE (*BKC) 100 UNITS/ML 25 UNITS SUB-Q (20:45)
[2025-01-17] VITALS (33 sets, daily range): BP systolic 96–180; BP diastolic 39–85; PULSE 80–91; RESP 18; TEMP 36.2–37; O2SAT 92–97
[2025-01-17] MEDS: IPRATROPIUM 0.5 MG/ALBUTEROL SULFATE 2.5 MG AMPUL.NEB 3 ML INHALATION ×2 (02:12→20:41)
[2025-01-17 05:14] LABS: Hematocrit 29.5 % (42.0-52.0); Hemoglobin 9.4 g/dL (14.0-18.0); Immature Granulocyte Percent A 0.5 % (0-0.5); Lymphocytes Absolute Auto 1.65 K/mm3 (0.9-3.2); Mean Corpuscular HGB Conc 31.9 g/dl (32-36); Mean Corpuscular Hemoglobin 32.9 pg (26-34); Mean Corpuscular Volume 103.1 fl (80-100); Nucleated Red Blood Cells Absolute Auto 0.000 K/mm3 (0.0-0.012); Nucleated Red Blood Cells Perc 0.0 % (0.0-0.2); Platelet Count Result 179 k/mm3 (150-375); Red Blood Count 2.86 M/mm3 (4.6-6.20); White Blood Count 5.8 K/mm3 (4.5-10.0)
[2025-01-17 05:44] LABS: Alanine Aminotransferase 16 U/L (6-50); Albumin Level 3.6 g/dL (3.5-5.1); Alkaline Phosphatase 98 U/L (38-126); Anion Gap 12 mmol/L (4-12); Aspartate Amino Transferase 25 U/L (17-59); Bilirubin,Total 1.2 mg/dL (0.2-1.3); Blood Urea Nitrogen 66 mg/dL (9-20); Calcium 8.9 mg/dL (8.4-10.2); Carbon Dioxide 22 mmol/L (22-30); Chloride 101 mmol/L (98-107); Estimated CRCL calculation 8 ml/min; Estimated Glomerular Filt Rate 6; Glucose 125 mg/dL (65-110); Potassium 4.4 mmol/L (3.4-5.0); Sodium 135 mmol/L (137-145); Total Protein 6.7 g/dL (6.3-8.2)
[2025-01-17] MEDS: SODIUM CHLORIDE 0.9% IV 1,000 ML 999 ML IV CONT (08:03)
--- NOTE | 2025-01-17 08:43 | PCOTNOTE ---
Attempted to see Patient at this time. Patient out of the room, in dialysis.
--- NOTE | 2025-01-17 10:00 | P.PNNP_ITS ---
Progress Note: A&P Assessment and Plan (1) End stage renal disease: Code(s): N18.6 - End stage renal disease Status: Chronic Assessment and Plan: * HD today * continue dialysis schedule of T/T/S while hospitalized * follow electrolytes, volume status, and clearance (2) Acute hypoxic respiratory failure: Code(s): J96.01 - Acute respiratory failure with hypoxia Status: Acute Assessment and Plan: * resolved * as noted on presentation * suspect multifactorial etiology: * pneumonia * mild fluid overload * diastolic heart failure * missed HD treatment this week (on 01/10) * COPD * weaned off supplemental oxygen * continue current therapy as outlined (3) Pneumonia: Code(s): J18.9 - Pneumonia, unspecified organism Status: Acute Assessment and Plan: * as suggested by admission imaging: * CXR with bibasilar airspace disease with crowding of the pulmonary vessels due to low lung lines * viral testing for influenza/RSV/COVID negative * follow culture data - negative to date * on antibiotics (4) Chronic diastolic heart failure: Code(s): I50.32 - Chronic diastolic (congestive) heart failure Status: Acute Assessment and Plan: * first noted in 2020 * compensated with fluid removal with dialysis * mild fluid overload/exacerbation due to missed treatment (on 01/10) * s/p DUF session (on 01/13) with 3L fluid removal * continue supportive therapy (5) Anemia: Qualifiers: Anemia type: unspecified type Qualified Code(s): D64.9 - Anemia, unspecified Code(s): D64.9 - Anemia, unspecified Status: Chronic Assessment and Plan: * due to ESRD * Epogen with HD * follow trend of H/H (6) Hypertension: Qualifiers: Hypertension type: primary hypertension Qualified Code(s): I10 - Essential (primary) hypertension Code(s): I10 - Essential (primary) hypertension Status: Chronic Assessment and Plan: * reasonable control at this time * follow trend of hemodynamics (7) Chronic obstructive pulmonary disease: Qualifiers: COPD type: emphysema Emphysema type: unspecified Qualified Code(s): J 43.9 - Emphysema, unspecified Code(s): J44.9 - Chronic obstructive pulmonary disease, unspecified Status: Chronic Assessment and Plan: * no evidence of acute exacerbation * maybe partly playing a role with #2 (8) Insulin dependent type 2 diabetes mellitus: Code(s): E11.9 - Type 2 diabetes mellitus without complications; 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 Will continue to follow. L Subjective Date/time seen: 01/17/25 10:00 Interval history: Follow-up for end stage renal disease on hemodialysis. Tolerating dialysis treatment at the time of my visit (seen on HD at 9:50am); no apparent distress noted when seen; no other issues/events overnight or earlier this morning to report. Exam 2 Narrative: General: elderly but WD/WN male in NAD Heart: normal S1 and S2; no rub Lungs: clear anteriorly Abdomen: soft, nontender, nondistended, positive bowel sounds Extremities: no cyanosis or clubbing; no edema; s/p right AKA Skin: no nodules Objective Data Vital Signs Vital Signs: Vital Signs Temp Pulse Resp BP Pulse Ox O2 Del Method FiO2 01/17/25 10:00 86 130/61 01/17/25 09:45 85 110/43 L 01/17/25 09:30 86 141/52 H 01/17/25 09:15 85 96/39 L 01/17/25 09:00 85 127/48 L 01/17/25 08:45 84 153/63 H 01/17/25 08:30 83 157/54 H 01/17/25 08:15 82 124/43 L 01/17/25 08:03 98.4 F 86 18 139/78 01/17/25 08:00 85 01/17/25 04:54 97.6 F 87 18 180/80 H 92 01/17/25 04:00 80 01/17/25 02:15 84 18 01/17/25 00:00 86 01/16/25 20:50 Room Air 24 01/16/25 20:44 86 01/16/25 20:30 85 20 01/16/25 20:24 86 20 01/16/25 20:23 94 Room Air 01/16/25 19:48 97.2 F L 86 18 141/65 H 95 01/16/25 16:00 83 01/16/25 14:03 82 20 01/16/25 14:00 97.6 F 86 18 126/58 L 95 01/16/25 13:55 84 20 01/16/25 13:55 84 20 93 Room Air 01/16/25 12:00 89 Intake/Output Intake/Output: Intake & Output 01/14/25 01/15/25 01/16/25 01/17/25 23:59 23:59 23:59 23:59 Intake Total 850 1780 800 240 Output Total 1731 800 Balance -881 1780 0 240 Meds/Results Medications: Active Medications Generic Name Dose Route Start Last Admin Trade Name Freq PRN Reason Stop Dose Admin Acetaminophen 650 mg 01/12/25 17:13 Acetaminophen 325 Mg Tablet PO Q4H PRN Mild Pain (1-3) or Fever Hydrocodone Bitart/Acetaminophen 1 tab 01/12/25 14:26 01/16/25 21:18 Hydrocodone/Acetaminophen (*Crx) 5-325 Mg Tablet PO 1 tab Q4H PRN Administration Pain Rated 4-6 Albuterol/Ipratropium 3 ml 01/12/25 20:00 01/17/25 08:16 Ipratropium 0.5 Mg/Albuterol Sulfate 2.5 Mg Ampul.Neb 3 Ml INHALATION Not Given Q6HRT MADIE Allopurinol 100 mg 01/13/25 09:00 01/16/25 09:22 Allopurinol 100 Mg Tablet PO 100 mg DAILY MADIE Administration Amoxicillin/Clavulanate Potassium 1 tablet 01/14/25 09:00 01/16/25 20:44 Amoxicillin/Clavulanate K 875-125 Mg Tab PO 1 tablet Q12HR MADIE Administration Atorvastatin Calcium 80 mg 01/12/25 21:50 01/16/25 20:44 Atorvastatin 40 Mg Tablet PO 80 mg HS MADIE Administration Azithromycin 500 mg 01/14/25 09:00 01/16/25 09:22 Azithromycin 500 Mg Tablet PO 500 mg DAILY MADIE Administration Calcium Acetate 667 mg 01/13/25 08:00 01/17/25 09:47 Calcium Acetate 667 Mg Tablet PO Not Given TIDWM MADIE Carvedilol 25 mg 01/12/25 21:00 01/16/25 20:44 Carvedilol 25 Mg Tablet PO 25 mg Q12H MADIE Administration Clopidogrel Bisulfate 75 mg 01/13/25 09:00 01/16/25 09:22 Clopidogrel Bisulfate 75 Mg Tablet PO 75 mg DAILY MADIE Administration Dextrose 12.5 gm 01/12/25 17:13 Dextrose 50% 25 Gm/50 Ml Syringe IV PUSH PRN PRN Hypoglycemia Protocol Docusate Sodium 100 mg 01/12/25 17:13 Docusate Sodium 100 Mg Capsule PO BID PRN Constipation Ezetimibe 10 mg 01/13/25 09:00 01/16/25 09:22 Ezetimibe 10 Mg Tablet PO 10 mg DAILY MADIE Administration Epoetin Patel-epbx 10,000 units 01/17/25 18:06 Epoetin Patel-Epbx 10,000 Units/Ml Vial IV PUSH 01/17/25 18:07 ONCE ONE Furosemide 80 mg 01/13/25 09:00 01/16/25 09:22 Furosemide 80 Mg Tablet PO 80 mg QAM MADIE Administration Gabapentin 100 mg 01/13/25 09:00 01/16/25 09:24 Gabapentin 100 Mg Capsule PO Not Given DAILY MADIE Glucagon 1 mg 01/12/25 17:13 Glucagon For Inj 1 Mg Vial IM PRN PRN Hypoglycemia Protocol Glucose 15 gm 01/12/25 17:13 Glucose Oral Gel 15 Gm Of Glucse In 37.5 Gm Tube PO PRN PRN Hypoglycemia Protocol Dextrose 1,000 mls @ 100 mls/hr 01/12/25 17:13 Dextrose 5% 1,000 Ml IVPB PRN PRN Hypoglycemia Protocol Albumin Human 50 mls @ 999 mls/hr 01/13/25 06:44 01/14/25 10:42 Albutein IVPB 02/12/25 06:43 999 mls/hr Q10M PRN Administration HYPOTENSION Insulin Aspart 2 - 5 units 01/13/25 08:00 01/17/25 08:05 Insulin Aspart (*Bkc) 100 Units/Ml SUB-Q Not Given TIDWM MADIE Protocol Insulin Aspart 1 - 2 units 01/12/25 21:00 01/16/25 20:44 Insulin Aspart (*Bkc) 100 Units/Ml SUB-Q Not Given HS [facility] Protocol Insulin Glargine 25 units 01/12/25 21:50 01/16/25 20:45 Insulin Glargine (*Bkc) 100 Units/Ml SUB-Q 25 units HS MADIE Administration Irbesartan 150 mg 01/13/25 09:00 08/02/25 12:32 Irbesartan 150 Mg Tablet PO 150 mg DAILY MADIE Administration Isosorbide Dinitrate 5 mg 01/12/25 21:50 01/16/25 17:01 Isosorbide Dinitrate 5 Mg Tablet PO 5 mg BID MADIE Administration Lidocaine/Prilocaine 1 each 01/13/25 15:43 01/14/25 07:56 Lidocaine/Prilocaine Cream 2.5-2.5% Tube TOPICAL 1 each WITH DIALYSIS PRN Administration Pain Methocarbamol 500 mg 01/12/25 21:43 Methocarbamol 500 Mg Tablet PO QID PRN Muscle spasms Morphine Sulfate 2 mg 01/12/25 14:26 Morphine Sulfate (*Crx) 2 Mg/Ml Inj IV PUSH Q2H PRN Pain Rated 7-10 Nitroglycerin 0.4 mg 01/12/25 21:38 Nitroglycerin Sl 0.4 Mg Tablet SUBLINGUAL Q5MIN PRN chest pain Pantoprazole Sodium 40 mg 01/13/25 09:00 01/16/25 09:22 Pantoprazole 40 Mg Tablet PO 40 mg QAM MADIE Administration Prednisolone Acetate 1 drop 01/12/25 21:40 01/16/25 20:54 Prednisolone Acetate 1% Ophth 5 Ml EACH EYE 1 drop Q12HR MADIE Administration Promethazine HCl 12.5 mg 01/12/25 14:26 Promethazine Hcl 25 Mg/Ml Ampul IV PUSH Q6H PRN Nausea Vitamin D 125 mcg 01/13/25 09:00 01/16/25 09:22 Cholecalciferol (Vitamin D3) 125 Mcg (5,000 Units) Tablet PO 125 mcg DAILY MADIE Administration Radiology Results: ITS Impressions Chest X-Ray 01/12/25 10:53 Impression: 1: Bibasilar airspace disease with crowding of the pulmonary vessels due to low lung lines. Considerations include edema, atelectasis and/or pneumonia. Labs Labs: Laboratory Tests 01/17/25 05:04 01/17/25 05:04 Calcium 8.9 Phosphorus 5.7 H Total Bilirubin 1.2 AST 25 ALT 16 Alkaline Phosphatase 98 Total Protein 6.7 Albumin 3.6
[2025-01-17] MEDS: CHOLECALCIFEROL (VITAMIN D3) 125 MCG (5,000 UNITS) TABLET PO (12:34)
[2025-01-17] MEDS: EZETIMIBE 10 MG TABLET PO (12:34)
[2025-01-17] MEDS: PANTOPRAZOLE 40 MG TABLET PO (12:34)
[2025-01-17] MEDS: FUROSEMIDE 80 MG TABLET PO (12:35)
[2025-01-17] MEDS: AZITHROMYCIN 500 MG TABLET PO (12:35)
[2025-01-17] MEDS: CALCIUM ACETATE 667 MG TABLET PO ×2 (12:35→17:33)
[2025-01-17] MEDS: GABAPENTIN 100 MG CAPSULE PO (12:35)
[2025-01-17] MEDS: ISOSORBIDE DINITRATE 5 MG TABLET PO ×2 (12:35→17:33)
[2025-01-17] MEDS: CLOPIDOGREL BISULFATE 75 MG TABLET PO (12:35)
--- NOTE | 2025-01-17 13:30 | P.PNIM_ITS ---
Progress Note: A&P Assessment and Plan (1) ESRD needing dialysis: Code(s): N18.6 - End stage renal disease; Z99.2 - Dependence on renal dialysis Status: Acute Assessment and Plan: * Fluid overload on exam upon admission * Dialysis T/T/S * Nephrology consulted, appreciate further recommendations * HD on 01/12 - will likely go for another session today 01/13 * Continue phosphate binders * Monitor daily labs * Nephrology consult - appreciate further recommendations * Kidney function near baseline * Unchanged, stable - continue Dialysis while admitted * Dialysis today, Nephrology clears for discharge from their standpoint (2) Pneumonia: Qualifiers: Pneumonia type: due to unspecified organism Laterality: unspecified laterality Lung location: unspecified part of lung Qualified Code(s): J18.9 - Pneumonia, unspecified organism Code(s): J18.9 - Pneumonia, unspecified organism Status: Acute Assessment and Plan: * CXR: Bibasilar airspace disease with crowding of the pulmonary vessels due to low lung lines. Considerations include edema, atelectasis and/or pneumonia. * started on CAP tx: azithromycin & ceftriaxone * Viral PCR: negative for Flu/COVID/RSV * Consider ordering legionella, mycoplasma and pneumococcal * no supplemental O2 requirement * supportive treatment * Monitor vital signs, I&Os, neuro status and patient is a fall risk * Follow WBC, serum electrolytes, temperature curves and cultures * Gentle IV fluid resuscitation * Guaifenesin, DuoNebs * Remains afebrile without leukocytosis or productive lung sounds, denies cough * Continue Augmentin, azithromycin through 01/20 (3) Diastolic congestive heart failure: Qualifiers: Heart failure chronicity: unspecified Qualified Code(s): I50.30 - Unspecified diastolic (congestive) heart failure Code(s): I50.30 - Unspecified diastolic (congestive) heart failure Status: Acute Assessment and Plan: * HD Thursday * Pulmonary edema on x-ray * IV Lasix x1 * Dialysis * Continue p.o. Lasix (4) Type 2 diabetes mellitus: Qualifiers: Diabetes mellitus correction insulin use: with buttermaker use Diabetes mellitus complication status: with hyperglycemia Qualified Code(s): E11.65 - Type 2 diabetes mellitus with hyperglycemia; Z79.4 - FDC (current) use of insulin Code(s): E11.9 - Type 2 diabetes mellitus without complications Status: Acute Assessment and Plan: * Diabetic renal diet * Accu-Cheks a.c. HS * SSI and Lantus * Continue Zetia (5) Coronary artery disease: Qualifiers: Coronary Disease-Associated Artery/Lesion type: [place] artery [place] vs. transplanted heart: [place] heart Associated angina: without angina Qualified Code(s): I25.10 - Atherosclerotic heart disease of yocha dehe coronary artery without angina pectoris Code(s): I25.10 - Atherosclerotic heart disease of [place] de[place] coronary artery without angina pectoris Status: Chronic Assessment and Plan: * Continue Lipitor, Zetia, isosorbide, nitro, and carvedilol (6) Weakness: Code(s): R53.1 - Weakness Status: Acute Assessment and Plan: * Multifactorial * Likely 2/2 to underlying infection, ESRD/missed dialysis * PT/OT evals - recommend further rehab (SNF, [facility]) * Working with CC regarding placement - pt needs dialysis T/T/S, facility will need to work with this schedule * Still waiting on placement - [facility] has sent referrals to [facility] and [facility] Date/time seen: 01/17/25 13:30 Interval history: 69-year-old male past medical history of COPD, diabetes type 2, hypertension, end-stage renal disease on dialysis and CAD presents the hospital with shortness of breath. 01/17/2025 Patient sitting comfortably in bed at time of exam. No acute overnight events, receiving dialysis at time of examination. Referral sent for [facility]. Pending placement at this time, no other complaints or concerns. Review of Systems Review of Systems: 12 systems were reviewed and are negativ e except for as per HPI. Exam Narrative: General: well appearing, appears stated age. HEENT: normocephalic, atraumatic. Mucous membranes moist. EOMI, PERRLA, bilateral sclera anicteric, no conjunctival injection. Neck supple without JVD, lymphadenopathy, or bruit. Respiratory: clear to ascultation bilaterally. No rales/rhonic/wheezes. Cardiovascular: Regular rate and rhythm, normal S1-S2 upon ascultation. No murmurs, rubs, or clicks. PMI is nondisplaced, capillary refill less than 3 second. Abdomen: Soft, round, no pulsatile masses, nondistended and nontender. No rebound, no guarding. No CVA tenderness, no hepatosplenomegaly. Bowel sounds present to all four quadrants. No high pitch or tinkling sounds, resonant to percussion. Extremities: No cyanosis, clubbing, or edema present. Pulses are palpable 2/2. Active ROM to all four extremities. Neuro: Alert and orientated x 4. PERRLA. Cranial nerves 2-12 intact without focal deficit. Skin: Warm, dry, and intact, without rash, erythema, or lesion. Psych: pleasant, cooperative, normal speech, normal affect, no hallucinations, no dysarthia Objective Data Vital Signs Vital Signs: Vital Signs - 24 hr 01/16/25 13:55 01/16/25 13:55 01/16/25 14:00 Temperature 97.6 F Pulse Rate 84 84 86 Respiratory Rate 20 20 18 Blood Pressure 126/58 L Pulse Oximetry 93 95 Oxygen Delivery Room Air Fraction of Inspired Oxygen 01/16/25 14:03 01/16/25 16:00 01/16/25 19:48 Temperature 97.2 F L Pulse Rate 82 83 86 Respiratory Rate 20 18 Blood Pressure 141/65 H Pulse Oximetry 95 Oxygen Delivery Fraction of Inspired Oxygen 01/16/25 20:23 01/16/25 20:24 01/16/25 20:30 Temperature Pulse Rate 86 85 Respiratory Rate 20 20 Blood Pressure Pulse Oximetry 94 Oxygen Delivery Room Air Fraction of Inspired Oxygen 01/16/25 20:44 01/16/25 20:50 01/17/25 00:00 Temperature Pulse Rate 86 86 Respiratory Rate Blood Pressure Pulse Oximetry Oxygen Delivery Room Air Fraction of Inspired Oxygen 01/17/25 02:15 01/17/25 04:00 01/17/25 04:54 Temperature 97.6 F Pulse Rate 84 80 87 Respiratory Rate 18 18 Blood Pressure 180/80 H Pulse Oximetry 92 Oxygen Delivery Fraction of Inspired Oxygen 01/17/25 08:00 01/17/25 08:03 01/17/25 08:15 Temperature 98.4 F Pulse Rate 85 86 82 Respiratory Rate 18 Blood Pressure 139/78 124/43 L Pulse Oximetry Oxygen Delivery Fraction of Inspired Oxygen 01/17/25 08:30 01/17/25 08:45 01/17/25 09:00 Temperature Pulse Rate 83 84 85 Respiratory Rate Blood Pressure 157/54 H 153/63 H 127/48 L Pulse Oximetry Oxygen Delivery Fraction of Inspired Oxygen 01/17/25 09:15 01/17/25 09:30 01/17/25 09:45 Temperature Pulse Rate 85 86 85 Respiratory Rate Blood Pressure 96/39 L 141/52 H 110/43 L Pulse Oximetry Oxygen Delivery Fraction of Inspired Oxygen 01/17/25 10:00 01/17/25 10:15 01/17/25 10:30 Temperature Pulse Rate 86 84 83 Respiratory Rate Blood Pressure 130/61 108/53 L 133/69 Pulse Oximetry Oxygen Delivery Fraction of Inspired Oxygen 01/17/25 10:45 01/17/25 11:00 01/17/25 11:15 Temperature Pulse Rate 82 84 84 Respiratory Rate Blood Pressure 142/54 H 118/58 L 158/85 H Pulse Oximetry Oxygen Delivery Fraction of Inspired Oxygen 01/17/25 11:30 01/17/25 11:45 01/17/25 11:54 Temperature 98.2 F Pulse Rate 83 84 84 Respiratory Rate 18 Blood Pressure 105/59 L 140/75 151/73 H Pulse Oximetry Oxygen Delivery Fraction of Inspired Oxygen 01/17/25 12:00 01/17/25 12:32 01/17/25 12:34 Temperature Pulse Rate 85 84 Respiratory Rate Blood Pressure 137/59 L Pulse Oximetry Oxygen Delivery Fraction of Inspired Oxygen Intake/Output Intake/Output: Intake & Output 01/14/25 01/15/25 01/16/25 01/17/25 23:59 23:59 23:59 23:59 Intake Total 850 1780 800 480 Output Total 4153 921 3026 Balance -881 1780 0 -1520 Meds/Results Medications: Active Medications Generic Name Dose Route Start Last Admin Trade Name Freq PRN Reason Stop Dose Admin Acetaminophen 650 mg 01/12/25 17:13 Acetaminophen 325 Mg Tablet PO Q4H PRN Mild Pain (1-3) or Fever Hydrocodone Bitart/Acetaminophen 1 tab 01/12/25 14:26 01/16/25 21:18 Hydrocodone/Acetaminophen (*Crx) 5-325 Mg Tablet PO 1 tab Q4H PRN Administration Pain Rated 4-6 Albuterol/Ipratropium 3 ml 01/12/25 20:00 01/17/25 08:16 Ipratropium 0.5 Mg/Albuterol Sulfate 2.5 Mg Ampul.Neb 3 Ml INHALATION Not Given Q6HRT MADIE Allopurinol 100 mg 01/13/25 09:00 01/17/25 12:34 Allopurinol 100 Mg Tablet PO 100 mg DAILY MADIE Administration Amoxicillin/Clavulanate Potassium 1 tablet 01/14/25 09:00 01/17/25 12:34 Amoxicillin/Clavulanate K 875-125 Mg Tab PO 1 tablet Q12HR AMDIE Administration Atorvastatin Calcium 80 mg 01/12/25 21:50 01/16/25 20:44 Atorvastatin 40 Mg Tablet PO 80 mg HS MADIE Administration Azithromycin 500 mg 01/14/25 09:00 01/17/25 12:35 Azithromycin 500 Mg Tablet PO 500 mg DAILY MADIE Administration Calcium Acetate 667 mg 01/13/25 08:00 01/17/25 12:35 Calcium Acetate 667 Mg Tablet PO 667 mg TIDWM MADIE Administration Carvedilol 25 mg 01/12/25 21:00 01/17/25 12:34 Carvedilol 25 Mg Tablet PO 25 mg Q12H MADIE Administration Clopidogrel Bisulfate 75 mg 01/13/25 09:00 01/17/25 12:35 Clopidogrel Bisulfate 75 Mg Tablet PO 75 mg DAILY MADIE Administration Dextrose 12.5 gm 01/12/25 17:13 Dextrose 50% 25 Gm/50 Ml Syringe IV PUSH PRN PRN Hypoglycemia Protocol Docusate Sodium 100 mg 01/12/25 17:13 Docusate Sodium 100 Mg Capsule PO BID PRN Constipation Ezetimibe 10 mg 01/13/25 09:00 01/17/25 12:34 Ezetimibe 10 Mg Tablet PO 10 mg DAILY MADIE Administration Epoetin Patel-epbx 10,000 units 01/17/25 18:06 Epoetin Patel-Epbx 10,000 Units/Ml Vial IV PUSH 01/17/25 18:07 ONCE ONE Furosemide 80 mg 01/13/25 09:00 01/17/25 12:35 Furosemide 80 Mg Tablet PO 80 mg QAM MADIE Administration Gabapentin 100 mg 01/13/25 09:00 01/17/25 12:35 Gabapentin 100 Mg Capsule PO 100 mg DAILY MADIE Administration Glucagon 1 mg 01/12/25 17:13 Glucagon For Inj 1 Mg Vial IM PRN PRN Hypoglycemia Protocol Glucose 15 gm 01/12/25 17:13 Glucose Oral Gel 15 Gm Of Glucse In 37.5 Gm Tube PO PRN PRN Hypoglycemia Protocol Dextrose 1,000 mls @ 100 mls/hr 01/12/25 17:13 Dextrose 5% 1,000 Ml IVPB PRN PRN Hypoglycemia Protocol Albumin Human 50 mls @ 999 mls/hr 01/13/25 06:44 01/14/25 10:42 Albutein IVPB 02/12/25 06:43 999 mls/hr Q10M PRN Administration HYPOTENSION Insulin Aspart 2 - 5 units 01/13/25 08:00 01/17/25 12:38 Insulin Aspart (*Bkc) 100 Units/Ml SUB-Q Not Given TIDWM MADIE Protocol Insulin Aspart 1 - 2 units 01/12/25 21:00 01/16/25 20:44 Insulin Aspart (*Bkc) 100 Units/Ml SUB-Q Not Given HS MADIE Protocol Insulin Glargine 25 units 01/12/25 21:50 01/16/25 20:45 Insulin Glargine (*Bkc) 100 Units/Ml SUB-Q 25 units HS MADIE Administration Irbesartan 150 mg 01/13/25 09:00 01/14/25 12:32 Irbesartan 150 Mg Tablet PO 150 mg DAILY MADIE Administration Isosorbide Dinitrate 5 mg 01/12/25 21:50 01/17/25 12:35 Isosorbide Dinitrate 5 Mg Tablet PO 5 mg BID MADIE Administration Lidocaine/Prilocaine 1 each 01/13/25 15:43 01/14/25 07:56 Lidocaine/Prilocaine Cream 2.5-2.5% Tube TOPICAL 1 each WITH DIALYSIS PRN Administration Pain Methocarbamol 500 mg 01/12/25 21:43 Methocarbamol 500 Mg Tablet PO QID PRN Muscle spasms Morphine Sulfate 2 mg 01/12/25 14:26 Morphine Sulfate (*Crx) 2 Mg/Ml Inj IV PUSH Q2H PRN Pain Rated 7-10 Nitroglycerin 0.4 mg 01/12/25 21:38 Nitroglycerin Sl 0.4 Mg Tablet SUBLINGUAL Q5MIN PRN chest pain Pantoprazole Sodium 40 mg 01/13/25 09:00 01/17/25 12:34 Pantoprazole 40 Mg Tablet PO 40 mg QAM MADIE Administration Prednisolone Acetate 1 drop 01/12/25 21:40 01/17/25 12:37 Prednisolone Acetate 1% Ophth 5 Ml EACH EYE Not Given Q12HR [facility] Promethazine HCl 12.5 mg 01/12/25 14:26 Promethazine Hcl 25 Mg/Ml Ampul IV PUSH Q6H PRN Nausea Vitamin D 125 mcg 01/13/25 09:00 01/17/25 12:34 Cholecalciferol (Vitamin D3) 125 Mcg (5,000 Units) Tablet PO 125 mcg DAILY MADIE Administration Radiology Results: ITS Impressions Chest X-Ray 01/12/25 10:53 Impression: 1: Bibasilar airspace disease with crowding of the pulmonary vessels due to low lung lines. Considerations include edema, atelectasis and/or pneumonia. Labs Labs: Laboratory Results - last 24 hr 01/16/25 01/16/25 01/17/25 16:55 19:54 05:04 WBC 5.8 RBC 2.86 L Hgb 9.4 L Hct 29.5 L MCV 103.1 H MCH 32.9 MCHC 31.9 L RDW 13.6 Plt Count 179 MPV 9.3 Immature Gran % (Auto) 0.5 Neut % (Auto) 58.5 Lymph % (Auto) 28.4 [place] % (Auto) 12.2 H Eos % (Auto) 0.2 Baso % (Auto) 0.2 Lymph # (Auto) 1.65 [place] # (Auto) 0.7 H Eos # (Auto) 0.0 Baso # (Auto) 0.0 Abs Immat Gran (auto) 0.03 Absolute Neuts (auto) 3.4 Absolute Nucleated RBC 0.000 Nucleated RBC % 0.0 Sodium 135 L Potassium 4.4 Chloride 101 Carbon Dioxide 22 Anion Gap 12 BUN 66 H Creatinine 8.66 H Estim Creat Clear Calc 8 Estimated GFR 6 L Glucose 125 H POC Capillary Glucose 157 H 171 H Calcium 8.9 Phosphorus 5.7 H Total Bilirubin 1.2 AST 25 ALT 16 Alkaline Phosphatase 98 Total Protein 6.7 Albumin 3.6 01/17/25 01/17/25 07:38 12:22 WBC RBC Hgb Hct MCV MCH MCHC RDW Plt Count MPV Immature Gran % (Auto) Neut % (Auto) Lymph % (Auto) [place] % (Auto) Eos % (Auto) Baso % (Auto) Lymph # (Auto) [place] # (Auto) Eos # (Auto) Baso # (Auto) Abs Immat Gran (auto) Absolute Neuts (auto) Absolute Nucleated RBC Nucleated RBC % Sodium Potassium Chloride Carbon Dioxide Anion Gap BUN Creatinine Estim Creat Clear Calc Estimated GFR Glucose POC Capillary Glucose 114 H 116 H Calcium Phosphorus Total Bilirubin AST ALT Alkaline Phosphatase Total Protein Albumin Quality VTE Prophylaxis VTE prophylaxis: mechanical ordered
[2025-01-17] MEDS: HYDROcodone/acetaminophen (*CRX) 5-325 MG TABLET 1 TAB PO (17:36)
[2025-01-17] MEDS: ATORVASTATIN 40 MG TABLET 80 MG PO (20:49)
[2025-01-17] MEDS: prednisoLONE ACETATE 1% OPHTH 5 ML 1 DROP EACH EYE (20:52)
[2025-01-17] MEDS: INSULIN GLARGINE (*BKC) 100 UNITS/ML 25 UNITS SUB-Q (20:57)
[2025-01-17] MEDS: INSULIN ASPART (*BKC) 100 UNITS/ML SUB-Q (20:58)
[2025-01-18] VITALS (15 sets, daily range): BP systolic 107–132; BP diastolic 50–63; PULSE 80–85; RESP 16–20; TEMP 36.3–36.9; O2SAT 94–100
[2025-01-18] MEDS: IPRATROPIUM 0.5 MG/ALBUTEROL SULFATE 2.5 MG AMPUL.NEB 3 ML INHALATION ×4 (02:26→21:20)
[2025-01-18 04:59] LABS: Hematocrit 30.1 % (42.0-52.0); Hemoglobin 9.6 g/dL (14.0-18.0); Immature Granulocyte Percent A 0.5 % (0-0.5); Lymphocytes Absolute Auto 2.26 K/mm3 (0.9-3.2); Mean Corpuscular HGB Conc 31.9 g/dl (32-36); Mean Corpuscular Hemoglobin 33.1 pg (26-34); Mean Corpuscular Volume 103.8 fl (80-100); Nucleated Red Blood Cells Absolute Auto 0.000 K/mm3 (0.0-0.012); Nucleated Red Blood Cells Perc 0.0 % (0.0-0.2); Platelet Count Result 180 k/mm3 (150-375); Red Blood Count 2.90 M/mm3 (4.6-6.20); White Blood Count 6.4 K/mm3 (4.5-10.0)
[2025-01-18 05:19] LABS: Alanine Aminotransferase 21 U/L (6-50); Albumin Level 3.7 g/dL (3.5-5.1); Alkaline Phosphatase 74 U/L (38-126); Anion Gap 7 mmol/L (4-12); Aspartate Amino Transferase 33 U/L (17-59); Bilirubin,Total 1.2 mg/dL (0.2-1.3); Blood Urea Nitrogen 35 mg/dL (9-20); Calcium 9.0 mg/dL (8.4-10.2); Carbon Dioxide 27 mmol/L (22-30); Chloride 100 mmol/L (98-107); Estimated CRCL calculation 10 ml/min; Estimated Glomerular Filt Rate 9; Glucose 126 mg/dL (65-110); Potassium 4.3 mmol/L (3.4-5.0); Sodium 134 mmol/L (137-145); Total Protein 7.0 g/dL (6.3-8.2)
[2025-01-18] MEDS: ISOSORBIDE DINITRATE 5 MG TABLET PO ×2 (08:41→17:09)
[2025-01-18] MEDS: CLOPIDOGREL BISULFATE 75 MG TABLET PO (08:41)
[2025-01-18] MEDS: FUROSEMIDE 80 MG TABLET PO (08:41)
[2025-01-18] MEDS: EZETIMIBE 10 MG TABLET PO (08:41)
[2025-01-18] MEDS: PANTOPRAZOLE 40 MG TABLET PO (08:41)
[2025-01-18] MEDS: CHOLECALCIFEROL (VITAMIN D3) 125 MCG (5,000 UNITS) TABLET PO (08:41)
[2025-01-18] MEDS: CALCIUM ACETATE 667 MG TABLET PO ×3 (08:41→17:09)
[2025-01-18] MEDS: AZITHROMYCIN 500 MG TABLET PO (08:41)
[2025-01-18] MEDS: prednisoLONE ACETATE 1% OPHTH 5 ML 1 DROP EACH EYE ×2 (08:42→21:05)
--- NOTE | 2025-01-18 10:44 | P.PNIM_ITS ---
Progress Note: A&P Assessment and Plan (1) ESRD needing dialysis: Code(s): N18.6 - End stage renal disease; Z99.2 - Dependence on renal dialysis Status: Acute Assessment and Plan: * Fluid overload on exam upon admission * Dialysis T/T/S * Nephrology consulted, appreciate further recommendations * HD on 01/12 - will likely go for another session today 01/13 * Continue phosphate binders * Monitor daily labs * Nephrology consult - appreciate further recommendations * Kidney function near baseline * Unchanged, stable - continue Dialysis while admitted * Cleared for discharge from a Nephrology standpoint (2) Pneumonia: Qualifiers: Pneumonia type: due to unspecified organism Laterality: unspecified laterality Lung location: unspecified part of lung Qualified Code(s): J18.9 - Pneumonia, unspecified organism Code(s): J18.9 - Pneumonia, unspecified organism Status: Acute Assessment and Plan: * CXR: Bibasilar airspace disease with crowding of the pulmonary vessels due to low lung lines. Considerations include edema, atelectasis and/or pneumonia. * started on CAP tx: azithromycin & ceftriaxone * Viral PCR: negative for Flu/COVID/RSV * Consider ordering legionella, mycoplasma and pneumococcal * no supplemental O2 requirement * supportive treatment * Monitor vital signs, I&Os, neuro status and patient is a fall risk * Follow WBC, serum electrolytes, temperature curves and cultures * Gentle IV fluid resuscitation * Guaifenesin, DuoNebs * Remains afebrile without leukocytosis or productive lung sounds, denies cough * Continue Augmentin, azithromycin through 01/18 -last day of antibiotics today (3) Diastolic congestive heart failure: Qualifiers: Heart failure chronicity: unspecified Qualified Code(s): I50.30 - Unspecified diastolic (congestive) heart failure Code(s): I50.30 - Unspecified diastolic (congestive) heart failure Status: Acute Assessment and Plan: * HD Thursday * Pulmonary edema on x-ray * IV Lasix x1 * Dialysis * Continue p.o. 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 HS * SSI and Lantus * Continue Zetia (5) Coronary artery disease: Qualifiers: Coronary Disease-Associated Artery/Lesion type: [place] artery [place] vs. transplanted heart: [place] heart Associated angina: without angina Qualified Code(s): I25.10 - Atherosclerotic heart disease of [place] coronary artery without angina pectoris Code(s): I25.10 - Atherosclerotic heart disease of [place] coronary artery without angina pectoris Status: Chronic Assessment and Plan: * Continue Lipitor, Zetia, isosorbide, nitro, and carvedilol (6) Weakness: Code(s): R53.1 - Weakness Status: Acute Assessment and Plan: * Multifactorial * Likely 2/2 to underlying infection, ESRD/missed dialysis * PT/OT evals - recommend further rehab (SNF, [facility]) * Working with [facility] regarding placement - pt needs dialysis T/T/S, facility will need to work with this schedule * Still waiting on placement - [facility] has sent referrals to [facility] and [facility] Subjective Date/time seen: 01/18/25 10:44 Interval history: 69-year-old male past medical history of COPD, diabetes type 2, hypertension, end-stage renal disease on dialysis and CAD presents the hospital with shortness of breath. 01/18/2025 Patient sitting comfortably in bed at time of exam. No acute overnight events. Pending placement at this time. Patient can likely be discharged, we will c ontinue dialysis until discharge. Patient has no other complaints concerns at this time, blood work and vital signs remained stable. Review of Systems Review of Systems: 12 systems were reviewed and are negativ e except for as per HPI. Exam Narrative: General: well appearing, appears stated age. HEENT: normocephalic, atraumatic. Mucous membranes moist. EOMI, PERRLA, bilateral sclera anicteric, no conjunctival injection. Neck supple without JVD, lymphadenopathy, or bruit. Respiratory: clear to ascultation bilaterally. No rales/rhonic/wheezes. Cardiovascular: Regular rate and rhythm, normal S1-S2 upon ascultation. No murmurs, rubs, or clicks. PMI is nondisplaced, capillary refill less than 3 second. Abdomen: Soft, round, no pulsatile masses, nondistended and nontender. No rebound, no guarding. No CVA tenderness, no hepatosplenomegaly. Bowel sounds present to all four quadrants. No high pitch or tinkling sounds, resonant to percussion. Extremities: No cyanosis, clubbing, or edema present. Pulses are palpable 2/2. Active ROM to all four extremities. Neuro: Alert and orientated x 4. PERRLA. Cranial nerves 2-12 intact without focal deficit. Skin: Warm, dry, and intact, without rash, erythema, or lesion. Psych: pleasant, cooperative, normal speech, normal affect, no hallucinations, no dysarthia Objective Data Vital Signs Vital Signs: Vital Signs - 24 hr 01/17/25 10:45 01/17/25 11:00 01/17/25 11:15 Temperature Pulse Rate 82 84 84 Respiratory Rate Blood Pressure 142/54 H 118/58 L 158/85 H Pulse Oximetry Oxygen Delivery 01/17/25 11:30 01/17/25 11:45 01/17/25 11:54 Temperature 98.2 F Pulse Rate 83 84 84 Respiratory Rate 18 Blood Pressure 105/59 L 140/75 151/73 H Pulse Oximetry Oxygen Delivery 01/17/25 12:00 01/17/25 12:32 01/17/25 12:34 Temperature Pulse Rate 85 84 Respiratory Rate Blood Pressure 137/59 L Pulse Oximetry Oxygen Delivery 01/17/25 12:35 01/17/25 14:00 01/17/25 16:00 Temperature 97.2 F L Pulse Rate 89 91 Respiratory Rate 18 Blood Pressure 111/74 Pulse Oximetry 97 Oxygen Delivery Room Air 01/17/25 20:00 01/17/25 20:25 01/17/25 20:36 Temperature 98.0 F Pulse Rate 86 86 Respiratory Rate 18 Blood Pressure 130/63 Pulse Oximetry 95 Oxygen Delivery Room Air 01/17/25 20:41 01/17/25 20:43 01/17/25 20:46 Temperature Pulse Rate 82 86 Respiratory Rate 18 18 Blood Pressure Pulse Oximetry 93 Oxygen Delivery 01/17/25 20:50 01/18/25 00:00 01/18/25 02:27 Temperature Pulse Rate 86 80 81 Respiratory Rate 18 Blood Pressure Pulse Oximetry Oxygen Delivery 01/18/25 04:00 01/18/25 04:41 01/18/25 07:29 Temperature 98.4 F Pulse Rate 80 81 Respiratory Rate 20 Blood Pressure 132/52 L Pulse Oximetry 95 94 Oxygen Delivery Room Air 01/18/25 07:29 01/18/25 07:37 01/18/25 08:00 Temperature Pulse Rate 80 81 81 Respiratory Rate 18 18 Blood Pressure Pulse Oximetry Oxygen Delivery 01/18/25 08:40 01/18/25 08:41 Temperature Pulse Rate 82 Respiratory Rate Blood Pressure Pulse Oximetry Oxygen Delivery Room Air Intake/Output Intake/Output: Intake & Output 01/15/25 01/16/25 01/17/25 01/18/25 23:59 23:59 23:59 23:59 Intake Total 1780 800 720 480 Output Total 800 2200 Balance 1780 0 -1480 480 Meds/Results Medications: Active Medications Generic Name Dose Route Start Last Admin Trade Name Robbi PRN Reason Stop Dose Admin Acetaminophen 650 mg 01/12/25 17:13 Acetaminophen 325 Mg Tablet PO Q4H PRN Mild Pain (1-3) or Fever Hydrocodone Bitart/Acetaminophen 1 tab 01/12/25 14:26 01/17/25 17:36 Hydrocodone/Acetaminophen (*Crx) 5-325 Mg Tablet PO 1 tab Q4H PRN Administration Pain Rated 4-6 Albuterol/Ipratropium 3 ml 01/12/25 20:00 01/18/25 07:45 Ipratropium 0.5 Mg/Albuterol Sulfate 2.5 Mg Ampul.Neb 3 Ml INHALATION Not Given Q6HRT MADIE Allopurinol 100 mg 01/13/25 09:00 01/18/25 08:41 Allopurinol 100 Mg Tablet PO 100 mg DAILY MADIE Administration Amoxicillin/Clavulanate Potassium 1 tablet 01/14/25 09:00 01/18/25 08:41 Amoxicillin/Clavulanate K 875-125 Mg Tab PO 01/18/25 21:01 1 tablet Q12HR MADIE Administration Atorvastatin Calcium 80 mg 01/12/25 21:50 01/17/25 20:49 Atorvastatin 40 Mg Tablet PO 80 mg HS MADIE Administration Calcium Acetate 667 mg 01/13/25 08:00 01/18/25 08:41 Calcium Acetate 667 Mg Tablet PO 667 mg TIDWM MADIE Administration Carvedilol 25 mg 01/12/25 21:00 01/18/25 08:41 Carvedilol 25 Mg Tablet PO 25 mg Q12H MADIE Administration Clopidogrel Bisulfate 75 mg 01/13/25 09:00 01/18/25 08:41 Clopidogrel Bisulfate 75 Mg Tablet PO 75 mg DAILY MADIE Administration Dextrose 12.5 gm 01/12/25 17:13 Dextrose 50% 25 Gm/50 Ml Syringe IV PUSH PRN PRN Hypoglycemia Protocol Docusate Sodium 100 mg 01/12/25 17:13 Docusate Sodium 100 Mg Capsule PO BID PRN Constipation Ezetimibe 10 mg 01/13/25 09:00 01/18/25 08:41 Ezetimibe 10 Mg Tablet PO 10 mg DAILY MADIE Administration Furosemide 80 mg 01/13/25 09:00 01/18/25 08:41 Furosemide 80 Mg Tablet PO 80 mg QAM MADIE Administration Gabapentin 100 mg 01/13/25 09:00 01/18/25 08:45 Gabapentin 100 Mg Capsule PO Not Given DAILY MADIE Glucagon 1 mg 01/12/25 17:13 Glucagon For Inj 1 Mg Vial IM PRN PRN Hypoglycemia Protocol Glucose 15 gm 01/12/25 17:13 Glucose Oral Gel 15 Gm Of Glucse In 37.5 Gm Tube PO PRN PRN Hypoglycemia Protocol Dextrose 1,000 mls @ 100 mls/hr 01/12/25 17:13 Dextrose 5% 1,000 Ml IVPB PRN PRN Hypoglycemia Protocol Albumin Human 50 mls @ 999 mls/hr 01/13/25 06:44 01/14/25 10:42 Albutein IVPB 02/12/25 06:43 999 mls/hr Q10M PRN Administration HYPOTENSION Insulin Aspart 2 - 5 units 01/13/25 08:00 01/18/25 07:45 Insulin Aspart (*Bkc) 100 Units/Ml SUB-Q Not Given TIDWM MADIE Protocol Insulin Aspart 1 - 2 units 01/12/25 21:00 01/17/25 20:58 Insulin Aspart (*Bkc) 100 Units/Ml SUB-Q 1 units HS MADIE Administration Protocol Insulin Glargine 25 units 01/12/25 21:50 01/17/25 20:57 Insulin Glargine (*Bkc) 100 Units/Ml SUB-Q 25 units HS MADIE Administration Irbesartan 150 mg 01/13/25 09:00 01/14/25 12:32 Irbesartan 150 Mg Tablet PO 150 mg DAILY MADIE Administration Isosorbide Dinitrate 5 mg 01/12/25 21:50 01/18/25 08:41 Isosorbide Dinitrate 5 Mg Tablet PO 5 mg BID MADIE Administration Lidocaine/Prilocaine 1 each 01/13/25 15:43 01/14/25 07:56 Lidocaine/Prilocaine Cream 2.5-2.5% Tube TOPICAL 1 each WITH DIALYSIS PRN Administration Pain Methocarbamol 500 mg 01/12/25 21:43 Methocarbamol 500 Mg Tablet PO QID PRN Muscle spasms Morphine Sulfate 2 mg 01/12/25 14:26 Morphine Sulfate (*Crx) 2 Mg/Ml Inj IV PUSH Q2H PRN Pain Rated 7-10 Nitroglycerin 0.4 mg 01/12/25 21:38 Nitroglycerin Sl 0.4 Mg Tablet SUBLINGUAL Q5MIN PRN chest pain Pantoprazole Sodium 40 mg 01/13/25 09:00 01/18/25 08:41 Pantoprazole 40 Mg Tablet PO 40 mg QAM MADIE Administration Prednisolone Acetate 1 drop 01/12/25 21:40 01/18/25 08:42 Prednisolone Acetate 1% Ophth 5 Ml EACH EYE 1 drop Q12HR MADIE Administration Promethazine HCl 12.5 mg 01/12/25 14:26 Promethazine Hcl 25 Mg/Ml Ampul IV PUSH Q6H PRN Nausea Vitamin D 125 mcg 01/13/25 09:00 01/18/25 08:41 Cholecalciferol (Vitamin D3) 125 Mcg (5,000 Units) Tablet PO 125 mcg DAILY MADIE Administration Radiology Results: ITS Impressions Chest X-Ray 01/12/25 10:53 Impression: 1: Bibasilar airspace disease with crowding of the pulmonary vessels due to low lung lines. Considerations include edema, atelectasis and/or pneumonia. Labs Labs: Laboratory Results - last 24 hr 01/17/25 01/17/25 01/17/25 12:22 16:39 20:31 WBC RBC Hgb Hct MCV MCH MCHC RDW Plt Count MPV Immature Gran % (Auto) Neut % (Auto) Lymph % (Auto) [place] % (Auto) Eos % (Auto) Baso % (Auto) Lymph # (Auto) [place] # (Auto) Eos # (Auto) Baso # (Auto) Abs Immat Gran (auto) Absolute Neuts (auto) Absolute Nucleated RBC Nucleated RBC % Sodium Potassium Chloride Carbon Dioxide Anion Gap BUN Creatinine Estim Creat Clear Calc Estimated GFR Glucose POC Capillary Glucose 116 H 155 H 277 H Calcium Phosphorus Total Bilirubin AST ALT Alkaline Phosphatase Total Protein Albumin 01/18/25 01/18/25 04:35 07:39 WBC 6.4 RBC 2.90 L Hgb 9.6 L Hct 30.1 L MCV 103.8 H MCH 33.1 MCHC 31.9 L RDW 14.4 Plt Count 180 MPV 9.3 Immature Gran % (Auto) 0.5 Neut % (Auto) 47.5 Lymph % (Auto) 35.5 [place] % (Auto) 13.8 H Eos % (Auto) 2.4 Baso % (Auto) 0.3 Lymph # (Auto) 2.26 [place] # (Auto) 0.9 H Eos # (Auto) 0.2 Baso # (Auto) 0.0 Abs Immat Gran (auto) 0.03 Absolute Neuts (auto) 3.0 Absolute Nucleated RBC 0.000 Nucleated RBC % 0.0 Sodium 134 L Potassium 4.3 Chloride 100 Carbon Dioxide 27 Anion Gap 7 BUN 35 H D Creatinine 6.45 H Estim Creat Clear Calc 10 Estimated GFR 9 L Glucose 126 H POC Capillary Glucose 130 H Calcium 9.0 Phosphorus 4.8 H Total Bilirubin 1.2 AST 33 ALT 21 Alkaline Phosphatase 74 Total Protein 7.0 Albumin 3.7 Quality VTE Prophylaxis VTE prophylaxis: mechanical ordered
--- NOTE | 2025-01-18 14:12 | P.PNNP_ITS ---
Progress Note: A&P Assessment and Plan (1) End stage renal disease: Code(s): N18.6 - End stage renal disease Status: Chronic Assessment and Plan: * HD tomorrow * continue dialysis schedule of T/T/S while hospitalized * follow electrolytes, volume status, and clearance (2) Acute hypoxic respiratory failure: Code(s): J96.01 - Acute respiratory failure with hypoxia Status: Acute Assessment and Plan: * resolved * as noted on presentation * suspect multifactorial etiology: * pneumonia * mild fluid overload * diastolic heart failure * missed HD treatment this week (on 01/10) * COPD * weaned off supplemental oxygen * continue current therapy as outlined (3) Pneumonia: Code(s): J18.9 - Pneumonia, unspecified organism Status: Acute Assessment and Plan: * clinical improvement noted * as suggested by admission imaging: * CXR with bibasilar airspace disease with crowding of the pulmonary vessels due to low lung lines * viral testing for influenza/RSV/COVID negative * follow culture data - negative to date * on antibiotics (4) Chronic diastolic heart failure: Code(s): I50.32 - Chronic diastolic (congestive) heart failure Status: Acute Assessment and Plan: * first noted in 2020 * compensated with fluid removal with dialysis * mild fluid overload/exacerbation due to missed treatment (on 01/10) * s/p DUF session (on 01/13) with 3L fluid removal * continue supportive therapy (5) Anemia: Qualifiers: Anemia type: unspecified type Qualified Code(s): D64.9 - Anemia, unspecified Code(s): D64.9 - Anemia, unspecified Status: Chronic Assessment and Plan: * due to ESRD * Epogen with HD * follow trend of H/H (6) Hypertension: Qualifiers: Hypertension type: primary hypertension Qualified Code(s): I10 - Essential (primary) hypertension Code(s): I10 - Essential (primary) hypertension Status: Chronic Assessment and Plan: * reasonable control at this time * follow trend of hemodynamics (7) Chronic obstructive pulmonary disease: Qualifiers: COPD type: emphysema Emphysema type: unspecified Qualified Code(s): J 43.9 - Emphysema, unspecified Code(s): J44.9 - Chronic obstructive pulmonary disease, unspecified Status: Chronic Assessment and Plan: * no evidence of acute exacerbation * maybe partly playing a role with #2 (8) Insulin dependent type 2 diabetes mellitus: Code(s): E11.9 - Type 2 diabetes mellitus without complications; 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 Will continue to follow. L Subjective Date/time seen: 01/18/25 14:12 Interval history: Follow-up for end stage renal disease on hemodialysis. Tolerated dialysis treatment yesterday without any issues or problems; otherwise, feels reasonably well at the time of my visit; no acute issues/events overnight or earlier this morning. Exam 2 Narrative: General: elderly but WD/WN male in NAD Heart: normal S1 and S2; no rub Lungs: clear anteriorly Abdomen: soft, nontender, nondistended, positive bowel sounds Extremities: no cyanosis or clubbing; no edema; s/p right AKA Skin: warm and dry Objective Data Vital Signs Vital Signs: Vital Signs Temp Pulse Resp BP Pulse Ox O2 Del Method 01/18/25 14:07 85 18 01/18/25 14:00 98.4 F 84 18 107/50 L 100 01/18/25 13:59 85 18 01/18/25 08:41 82 01/18/25 08:40 Room Air 01/18/25 08:00 81 01/18/25 07:37 81 18 01/18/25 07:29 80 18 01/18/25 07:29 94 Room Air 01/18/25 04:41 98.4 F 81 20 132/52 L 95 01/18/25 04:00 80 01/18/25 02:27 81 18 01/18/25 00:00 80 01/17/25 20:50 86 01/17/25 20:46 86 18 01/17/25 20:43 93 01/17/25 20:41 82 18 01/17/25 20:36 Room Air 01/17/25 20:25 98.0 F 86 18 130/63 95 01/17/25 20:00 86 Intake/Output Intake/Output: Intake & Output 01/15/25 01/16/25 01/17/25 01/18/25 23:59 23:59 23:59 23:59 Intake Total 1780 800 720 960 Output Total 800 2200 Balance 1780 0 -1480 960 Meds/Results Medications: Active Medications Generic Name Dose Route Start Last Admin Trade Name Freq PRN Reason Stop Dose Admin Acetaminophen 650 mg 01/12/25 17:13 Acetaminophen 325 Mg Tablet PO Q4H PRN Mild Pain (1-3) or Fever Hydrocodone Bitart/Acetaminophen 1 tab 01/12/25 14:26 01/17/25 17:36 Hydrocodone/Acetaminophen (*Crx) 5-325 Mg Tablet PO 1 tab Q4H PRN Administration Pain Rated 4-6 Albuterol/Ipratropium 3 ml 01/12/25 20:00 01/18/25 13:59 Ipratropium 0.5 Mg/Albuterol Sulfate 2.5 Mg Ampul.Neb 3 Ml INHALATION 3 ml Q6HRT MADIE Administration Allopurinol 100 mg 01/13/25 09:00 01/18/25 08:41 Allopurinol 100 Mg Tablet PO 100 mg DAILY MADIE Administration Amoxicillin/Clavulanate Potassium 1 tablet 01/14/25 09:00 01/18/25 08:41 Amoxicillin/Clavulanate K 875-125 Mg Tab PO 01/18/25 21:01 1 tablet Q12HR MADIE Administration Atorvastatin Calcium 80 mg 01/12/25 21:50 01/17/25 20:49 Atorvastatin 40 Mg Tablet PO 80 mg HS MADIE Administration Calcium Acetate 667 mg 01/13/25 08:00 01/18/25 17:09 Calcium Acetate 667 Mg Tablet PO 667 mg TIDWM MADIE Administration Carvedilol 25 mg 01/12/25 21:00 01/18/25 08:41 Carvedilol 25 Mg Tablet PO 25 mg Q12H MADIE Administration Clopidogrel Bisulfate 75 mg 01/13/25 09:00 01/18/25 08:41 Clopidogrel Bisulfate 75 Mg Tablet PO 75 mg DAILY MADIE Administration Dextrose 12.5 gm 01/12/25 17:13 Dextrose 50% 25 Gm/50 Ml Syringe IV PUSH PRN PRN Hypoglycemia Protocol Docusate Sodium 100 mg 01/12/25 17:13 Docusate Sodium 100 Mg Capsule PO BID PRN Constipation Ezetimibe 10 mg 01/13/25 09:00 01/18/25 08:41 Ezetimibe 10 Mg Tablet PO 10 mg DAILY MADIE Administration Furosemide 80 mg 01/13/25 09:00 01/18/25 08:41 Furosemide 80 Mg Tablet PO 80 mg QAM MADIE Administration Gabapentin 100 mg 01/13/25 09:00 01/18/25 08:45 Gabapentin 100 Mg Capsule PO Not Given DAILY MADIE Glucagon 1 mg 01/12/25 17:13 Glucagon For Inj 1 Mg Vial IM PRN PRN Hypoglycemia Protocol Glucose 15 gm 01/12/25 17:13 Glucose Oral Gel 15 Gm Of Glucse In 37.5 Gm Tube PO PRN PRN Hypoglycemia Protocol Dextrose 1,000 mls @ 100 mls/hr 01/12/25 17:13 Dextrose 5% 1,000 Ml IVPB PRN PRN Hypoglycemia Protocol Albumin Human 50 mls @ 999 mls/hr 01/13/25 06:44 01/14/25 10:42 Albutein IVPB 02/12/25 06:43 999 mls/hr Q10M PRN Administration HYPOTENSION Insulin Aspart 2 - 5 units 01/13/25 08:00 01/18/25 17:09 Insulin Aspart (*Bkc) 100 Units/Ml SUB-Q Not Given TIDWM MADIE Protocol Insulin Aspart 1 - 2 units 01/12/25 21:00 01/17/25 20:58 Insulin Aspart (*Bkc) 100 Units/Ml SUB-Q 1 units HS MADIE Administration Protocol Insulin Glargine 25 units 01/12/25 21:50 01/17/25 20:57 Insulin Glargine (*Bkc) 100 Units/Ml SUB-Q 25 units HS MADIE Administration Irbesartan 150 mg 01/13/25 09:00 01/14/25 12:32 Irbesartan 150 Mg Tablet PO 150 mg DAILY MADIE Administration Isosorbide Dinitrate 5 mg 01/12/25 21:50 01/18/25 17:09 Isosorbide Dinitrate 5 Mg Tablet PO 5 mg BID MADIE Administration Lidocaine/Prilocaine 1 each 01/13/25 15:43 01/14/25 07:56 Lidocaine/Prilocaine Cream 2.5-2.5% Tube TOPICAL 1 each WITH DIALYSIS PRN Administration Pain Methocarbamol 500 mg 01/12/25 21:43 Methocarbamol 500 Mg Tablet PO QID PRN Muscle spasms Morphine Sulfate 2 mg 01/12/25 14:26 Morphine Sulfate (*Crx) 2 Mg/Ml Inj IV PUSH Q2H PRN Pain Rated 7-10 Nitroglycerin 0.4 mg 01/12/25 21:38 Nitroglycerin Sl 0.4 Mg Tablet SUBLINGUAL Q5MIN PRN chest pain Pantoprazole Sodium 40 mg 01/13/25 09:00 01/18/25 08:41 Pantoprazole 40 Mg Tablet PO 40 mg QAM MADIE Administration Prednisolone Acetate 1 drop 01/12/25 21:40 01/18/25 08:42 Prednisolone Acetate 1% Ophth 5 Ml EACH EYE 1 drop Q12HR MADIE Administration Promethazine HCl 12.5 mg 01/12/25 14:26 Promethazine Hcl 25 Mg/Ml Ampul IV PUSH Q6H PRN Nausea Vitamin D 125 mcg 01/13/25 09:00 01/18/25 08:41 Cholecalciferol (Vitamin D3) 125 Mcg (5,000 Units) Tablet PO 125 mcg DAILY MADIE Administration Radiology Results: ITS Impressions Chest X-Ray 01/12/25 10:53 Impression: 1: Bibasilar airspace disease with crowding of the pulmonary vessels due to low lung lines. Considerations include edema, atelectasis and/or pneumonia. Labs Labs: Laboratory Tests 01/18/25 04:35 01/18/25 04:35 Calcium 9.0 Phosphorus 4.8 H Total Bilirubin 1.2 AST 33 ALT 21 Alkaline Phosphatase 74 Total Protein 7.0 Albumin 3.7 Microbiology 01/12/25 15:54 Blood Blood Culture - Final 01/12/25 14:48 Blood Blood Culture - Final 01/16/25 09:48 Sputum Sputum White Blood Cells - Final 01/16/25 09:48 Sputum Sputum Epithelial Cells - Final 01/16/25 09:48 Sputum Gram Stain Sputum Result 1 - Final 01/16/25 09:48 Sputum Gram Stain Sputum Result 2 - Final 01/16/25 09:48 Sputum Gram Stain Sputum Result 3 - Final 01/16/25 09:48 Sputum Gram Stain Sputum Result 4 - Final 01/16/25 09:48 Sputum Gram Stain Evaluation - Final 01/16/25 09:48 Sputum Sputum Culture - Preliminary
[2025-01-18] MEDS: ATORVASTATIN 40 MG TABLET 80 MG PO (21:00)
[2025-01-18] MEDS: INSULIN GLARGINE (*BKC) 100 UNITS/ML 25 UNITS SUB-Q (21:02)
[2025-01-19] VITALS (28 sets, daily range): BP systolic 89–163; BP diastolic 35–74; PULSE 73–88; RESP 14–20; TEMP 36.1–37; O2SAT 91–98
[2025-01-19] MEDS: IPRATROPIUM 0.5 MG/ALBUTEROL SULFATE 2.5 MG AMPUL.NEB 3 ML INHALATION ×3 (01:47→21:21)
[2025-01-19 05:23] LABS: Hematocrit 28.6 % (42.0-52.0); Hemoglobin 9.5 g/dL (14.0-18.0); Immature Granulocyte Percent A 0.4 % (0-0.5); Lymphocytes Absolute Auto 2.22 K/mm3 (0.9-3.2); Mean Corpuscular HGB Conc 33.2 g/dl (32-36); Mean Corpuscular Hemoglobin 33.7 pg (26-34); Mean Corpuscular Volume 101.4 fl (80-100); Nucleated Red Blood Cells Absolute Auto 0.000 K/mm3 (0.0-0.012); Nucleated Red Blood Cells Perc 0.0 % (0.0-0.2); Platelet Count Result 170 k/mm3 (150-375); Red Blood Count 2.82 M/mm3 (4.6-6.20); White Blood Count 6.9 K/mm3 (4.5-10.0)
[2025-01-19 05:44] LABS: Alanine Aminotransferase 20 U/L (6-50); Albumin Level 3.5 g/dL (3.5-5.1); Alkaline Phosphatase 84 U/L (38-126); Anion Gap 10 mmol/L (4-12); Aspartate Amino Transferase 32 U/L (17-59); Bilirubin,Total 1.4 mg/dL (0.2-1.3); Blood Urea Nitrogen 47 mg/dL (9-20); Calcium 8.8 mg/dL (8.4-10.2); Carbon Dioxide 23 mmol/L (22-30); Chloride 97 mmol/L (98-107); Estimated CRCL calculation 8 ml/min; Estimated Glomerular Filt Rate 6; Glucose 91 mg/dL (65-110); Potassium 4.2 mmol/L (3.4-5.0); Sodium 130 mmol/L (137-145); Total Protein 6.7 g/dL (6.3-8.2)
--- NOTE | 2025-01-19 10:39 | PCNWS ---
Weekly nutritional screen. Patient is tolerating current diet with adequate intake. No weight loss reported. No nutritional needs at this time.
--- NOTE | 2025-01-19 10:43 | P.PNIM_ITS ---
Progress Note: A&P Assessment and Plan (1) ESRD needing dialysis: Code(s): N18.6 - End stage renal disease; Z99.2 - Dependence on renal dialysis Status: Acute Assessment and Plan: * Fluid overload on exam upon admission * Dialysis T/T/S * Nephrology consulted, appreciate further recommendations * HD on 01/12 - will likely go for another session today 01/13 * Continue phosphate binders * Monitor daily labs * Nephrology consult - appreciate further recommendations * Kidney function near baseline * Unchanged, stable - continue Dialysis while admitted * Cleared for discharge from a Nephrology standpoint continue HD while hospitalized placement pending (2) Pneumonia: Qualifiers: Laterality: unspecified laterality Lung location: unspecified part of lung Pneumonia type: due to unspecified organism Qualified Code(s): J18.9 - Pneumonia, unspecified organism Code(s): J18.9 - Pneumonia, unspecified organism Status: Acute Assessment and Plan: * CXR: Bibasilar airspace disease with crowding of the pulmonary vessels due to low lung lines. Considerations include edema, atelectasis and/or pneumonia. * started on CAP tx: azithromycin & ceftriaxone * Viral PCR: negative for Flu/COVID/RSV * Consider ordering legionella, mycoplasma and pneumococcal * no supplemental O2 requirement * supportive treatment * Monitor vital signs, I&Os, neuro status and patient is a fall risk * Follow WBC, serum electrolytes, temperature curves and cultures * Gentle IV fluid resuscitation * Guaifenesin, DuoNebs * Remains afebrile without leukocytosis or productive lung sounds, denies cough * Continue Augmentin, azithromycin through 01/18 -last day of antibiotics today completed antibiotic course continue to monitor, IS, ambulation placement pending (3) Diastolic congestive heart failure: Qualifiers: Heart failure chronicity: unspecified Qualified Code(s): I50.30 - Unspecified diastolic (congestive) heart failure Code(s): I50.30 - Unspecified diastolic (congestive) heart failure Status: Acute Assessment and Plan: * HD Thursday * Pulmonary edema on x-ray * IV Lasix x1 * Dialysis * Continue p.o. 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 HS * SSI and Lantus * Continue Zetia (5) Coronary artery disease: Qualifiers: Associated angina: without angina Coronary Disease-Associated Artery/Lesion type: [place] artery [place] vs. transplanted heart: [place] heart Qualified Code(s): I25.10 - Atherosclerotic heart disease of [place] coronary artery without angina pectoris Code(s): I25.10 - Atherosclerotic heart disease of [place] coronary artery without angina pectoris Status: Chronic Assessment and Plan: * Continue Lipitor, Zetia, isosorbide, nitro, and carvedilol (6) Weakness: Code(s): R53.1 - Weakness Status: Acute Assessment and Plan: * Multifactorial * Likely 2/2 to underlying infection, ESRD/missed dialysis * PT/OT evals - recommend further rehab (SNF, [facility]) * Working with CC regarding placement - pt needs dialysis T/T/S, facility will need to work with this schedule * Still waiting on placement - [facility] has sent referrals to [facility] and [facility] Time Spent With Patient Time with patient: 25 - 35 minutes Subjective Date/time seen: 01/19/25 10:43 Interval history: 69-year-old male past medical history of COPD, diabetes type 2, hypertension, end-stage renal disease on dialysis and CAD presents the hospital with shortness of breath. assuming care. Pt is seen and examined. HD today.No acute events. There is a hold up with placement- [facility] requesting peer to peer- will address today to see if they accept him [phone] option 4 reference number [id number] policy number [id number]. Several other places pending. Review of Systems Review of Systems: 12 systems were reviewed and are negativ e except for as per HPI. Exam Narrative: General: well appearing, appears stated age. currently undergoign HD HEENT: normocephalic, atraumatic. Mucous membranes moist. EOMI, PERRLA, bila teral sclera anicteric, no conjunctival injection. Neck supple without JVD, lymphadenopathy, or bruit. Respiratory: clear to ascultation bilaterally. No rales/rhonic/wheezes. Cardiovascular: Regular rate and rhythm, normal S1-S2 upon ascultation. No murmurs, rubs, or clicks. PMI is nondisplaced, capillary refill less than 3 second. Abdomen: Soft, round, no pulsatile masses, nondistended and nontender. No rebound, no guarding. No CVA tenderness, no hepatosplenomegaly. Bowel sounds present to all four quadrants. No high pitch or tinkling sounds, resonant to percussion. Extremities: No cyanosis, clubbing, or edema present. Pulses are palpable 2/2. Active ROM to all four extremities. Neuro: Alert and orientated x 4. PERRLA. Cranial nerves 2-12 intact without focal deficit. Skin: Warm, dry, and intact, without rash, erythema, or lesion. Psych: pleasant, cooperative, normal speech, normal affect, no hallucinations, no dysarthia Const: General: comfortable Objective Data Vital Signs Vital Signs: Vital Signs - 24 hr 01/18/25 13:59 01/18/25 14:00 01/18/25 14:07 Temperature 98.4 F Pulse Rate 85 84 85 Respiratory Rate 18 18 18 Blood Pressure 107/50 L Pulse Oximetry 100 Oxygen Delivery 01/18/25 20:00 01/18/25 21:01 01/18/25 21:20 Temperature Pulse Rate 85 Respiratory Rate Blood Pressure Pulse Oximetry 95 Oxygen Delivery Room Air Room Air 01/18/25 21:20 01/18/25 21:26 01/18/25 22:00 Temperature 97.3 F L Pulse Rate 81 83 81 Respiratory Rate 16 16 18 Blood Pressure 130/63 Pulse Oximetry 99 Oxygen Delivery 01/19/25 01:48 01/19/25 06:00 01/19/25 08:00 Temperature 97.6 F Pulse Rate 85 82 Respiratory Rate 16 18 Blood Pressure 154/73 H Pulse Oximetry 92 Oxygen Delivery Room Air 01/19/25 08:35 01/19/25 08:48 01/19/25 09:00 Temperature 98.2 F Pulse Rate 81 80 77 Respiratory Rate 14 Blood Pressure 110/66 108/64 97/58 L Pulse Oximetry 98 Oxygen Delivery 01/19/25 09:15 01/19/25 09:30 01/19/25 09:45 Temperature Pulse Rate 78 78 78 Respiratory Rate Blood Pressure 89/37 L 106/35 L 111/48 L Pulse Oximetry Oxygen Delivery 01/19/25 10:00 01/19/25 10:15 01/19/25 10:30 Temperature Pulse Rate 77 79 78 Respiratory Rate Blood Pressure 123/45 L 89/45 L 108/54 L Pulse Oximetry Oxygen Delivery Intake/Output Intake/Output: Intake & Output 01/16/25 01/17/25 01/18/25 01/19/25 23:59 23:59 23:59 23:59 Intake Total 800 720 960 200 Output Total 800 2200 Balance 0 -1480 960 200 Meds/Results Medications: Active Medications Generic Name Dose Route Start Last Admin Trade Name Freq PRN Reason Stop Dose Admin Acetaminophen 650 mg 01/12/25 17:13 Acetaminophen 325 Mg Tablet PO Q4H PRN Mild Pain (1-3) or Fever Hydrocodone Bitart/Acetaminophen 1 tab 01/12/25 14:26 01/17/25 17:36 Hydrocodone/Acetaminophen (*Crx) 5-325 Mg Tablet PO 1 tab Q4H PRN Administration Pain Rated 4-6 Albuterol/Ipratropium 3 ml 01/12/25 20:00 01/19/25 08:50 Ipratropium 0.5 Mg/Albuterol Sulfate 2.5 Mg Ampul.Neb 3 Ml INHALATION Not Given Q6HRT [facility] Allopurinol 100 mg 01/13/25 09:00 01/18/25 08:41 Allopurinol 100 Mg Tablet PO 100 mg DAILY MADIE Administration Atorvastatin Calcium 80 mg 01/12/25 21:50 01/18/25 21:00 Atorvastatin 40 Mg Tablet PO 80 mg HS MADIE Administration Calcium Acetate 667 mg 01/13/25 08:00 01/19/25 07:58 Calcium Acetate 667 Mg Tablet PO Not Given TIDWM [facility] Carvedilol 25 mg 01/12/25 21:00 01/18/25 21:01 Carvedilol 25 Mg Tablet PO 25 mg Q12H MADIE Administration Clopidogrel Bisulfate 75 mg 01/13/25 09:00 01/18/25 08:41 Clopidogrel Bisulfate 75 Mg Tablet PO 75 mg DAILY MADIE Administration Dextrose 12.5 gm 01/12/25 17:13 Dextrose 50% 25 Gm/50 Ml Syringe IV PUSH PRN PRN Hypoglycemia Protocol Docusate Sodium 100 mg 01/12/25 17:13 Docusate Sodium 100 Mg Capsule PO BID PRN Constipation Ezetimibe 10 mg 01/13/25 09:00 01/18/25 08:41 Ezetimibe 10 Mg Tablet PO 10 mg DAILY MADIE Administration Epoetin Patel-epbx 20,000 units 01/19/25 18:17 Epoetin Patel-Epbx 20,000 Units/Ml Vial IV PUSH 01/19/25 18:18 ONCE ONE Furosemide 80 mg 01/13/25 09:00 01/18/25 08:41 Furosemide 80 Mg Tablet PO 80 mg QAM MADIE Administration Gabapentin 100 mg 01/13/25 09:00 01/18/25 08:45 Gabapentin 100 Mg Capsule PO Not Given DAILY MADIE Glucagon 1 mg 01/12/25 17:13 Glucagon For Inj 1 Mg Vial IM PRN PRN Hypoglycemia Protocol Glucose 15 gm 01/12/25 17:13 Glucose Oral Gel 15 Gm Of Glucse In 37.5 Gm Tube PO PRN PRN Hypoglycemia Protocol Dextrose 1,000 mls @ 100 mls/hr 01/12/25 17:13 Dextrose 5% 1,000 Ml IVPB PRN PRN Hypoglycemia Protocol Albumin Human 50 mls @ 999 mls/hr 01/13/25 06:44 01/14/25 10:42 Albutein IVPB 02/12/25 06:43 999 mls/hr Q10M PRN Administration HYPOTENSION Insulin Aspart 2 - 5 units 01/13/25 08:00 01/19/25 07:58 Insulin Aspart (*Bkc) 100 Units/Ml SUB-Q Not Given TIDWM [facility] Protocol Insulin Aspart 1 - 2 units 01/12/25 21:00 01/18/25 21:02 Insulin Aspart (*Bkc) 100 Units/Ml SUB-Q Not Given HS [facility] Protocol Insulin Glargine 25 units 01/12/25 21:50 01/18/25 21:02 Insulin Glargine (*Bkc) 100 Units/Ml SUB-Q 25 units HS MADIE Administration Irbesartan 150 mg 01/13/25 09:00 01/14/25 12:32 Irbesartan 150 Mg Tablet PO 150 mg DAILY MADIE Administration Isosorbide Dinitrate 5 mg 01/12/25 21:50 01/18/25 17:09 Isosorbide Dinitrate 5 Mg Tablet PO 5 mg BID MADIE Administration Lidocaine/Prilocaine 1 each 01/13/25 15:43 01/14/25 07:56 Lidocaine/Prilocaine Cream 2.5-2.5% Tube TOPICAL 1 each WITH DIALYSIS PRN Administration Pain Methocarbamol 500 mg 01/12/25 21:43 Methocarbamol 500 Mg Tablet PO QID PRN Muscle spasms Morphine Sulfate 2 mg 01/12/25 14:26 Morphine Sulfate (*Crx) 2 Mg/Ml Inj IV PUSH Q2H PRN Pain Rated 7-10 Nitroglycerin 0.4 mg 01/12/25 21:38 Nitroglycerin Sl 0.4 Mg Tablet SUBLINGUAL Q5MIN PRN chest pain Pantoprazole Sodium 40 mg 01/13/25 09:00 01/18/25 08:41 Pantoprazole 40 Mg Tablet PO 40 mg QAM MADIE Administration Prednisolone Acetate 1 drop 01/12/25 21:40 01/18/25 21:05 Prednisolone Acetate 1% Ophth 5 Ml EACH EYE 1 drop Q12HR MADIE Administration Promethazine HCl 12.5 mg 01/12/25 14:26 Promethazine Hcl 25 Mg/Ml Ampul IV PUSH Q6H PRN Nausea Vitamin D 125 mcg 01/13/25 09:00 01/18/25 08:41 Cholecalciferol (Vitamin D3) 125 Mcg (5,000 Units) Tablet PO 125 mcg DAILY MADIE Administration Radiology Results: ITS Impressions Chest X-Ray 01/12/25 10:53 Impression: 1: Bibasilar airspace disease with crowding of the pulmonary vessels due to low lung lines. Considerations include edema, atelectasis and/or pneumonia. Labs Labs: Laboratory Results - last 24 hr 01/18/25 01/18/25 01/18/25 11:50 16:55 19:48 WBC RBC Hgb Hct MCV MCH MCHC RDW Plt Count MPV Immature Gran % (Auto) Neut % (Auto) Lymph % (Auto) Josephine % (Auto) Eos % (Auto) Baso % (Auto) Lymph # (Auto) Josephine # (Auto) Eos # (Auto) Baso # (Auto) Abs Immat Gran (auto) Absolute Neuts (auto) Absolute Nucleated RBC Nucleated RBC % Sodium Potassium Chloride Carbon Dioxide Anion Gap BUN Creatinine Estim Creat Clear Calc Estimated GFR Glucose POC Capillary Glucose 147 H 145 H 162 H Calcium Phosphorus Total Bilirubin AST ALT Alkaline Phosphatase Total Protein Albumin 01/19/25 01/19/25 04:59 07:55 WBC 6.9 RBC 2.82 L Hgb 9.5 L Hct 28.6 L MCV 101.4 H MCH 33.7 MCHC 33.2 RDW 14.2 Plt Count 170 MPV 9.4 Immature Gran % (Auto) 0.4 Neut % (Auto) 54.7 Lymph % (Auto) 32.1 Josephine % (Auto) 12.7 H Eos % (Auto) 0.0 Baso % (Auto) 0.1 L Lymph # (Auto) 2.22 Josephine # (Auto) 0.9 H Eos # (Auto) 0.0 Baso # (Auto) 0.0 Abs Immat Gran (auto) 0.03 Absolute Neuts (auto) 3.8 Absolute Nucleated RBC 0.000 Nucleated RBC % 0.0 Sodium 130 L Potassium 4.2 Chloride 97 L Carbon Dioxide 23 Anion Gap 10 BUN 47 H D Creatinine 8.30 H Estim Creat Clear Calc 8 Estimated GFR 6 L Glucose 91 POC Capillary Glucose 82 Calcium 8.8 Phosphorus 5.8 H Total Bilirubin 1.4 H AST 32 ALT 20 Alkaline Phosphatase 84 Total Protein 6.7 Albumin 3.5 Quality VTE Prophylaxis VTE prophylaxis: mechanical ordered
[2025-01-19] MEDS: EPOETIN ALFA-EPBX 20,000 UNITS/ML VIAL 20000 UNITS IV PUSH (10:59)
[2025-01-19] MEDS: SODIUM CHLORIDE 0.9% IV 1,000 ML 999 ML IV CONT (10:59)
--- NOTE | 2025-01-19 12:20 | P.PNNP_ITS ---
Progress Note: A&P Assessment and Plan (1) End stage renal disease: Code(s): N18.6 - End stage renal disease Status: Chronic Assessment and Plan: * HD today * continue dialysis schedule of T/T/S while hospitalized * follow electrolytes, volume status, and clearance (2) Acute hypoxic respiratory failure: Code(s): J96.01 - Acute respiratory failure with hypoxia Status: Acute Assessment and Plan: * resolved * as noted on presentation * suspect multifactorial etiology: * pneumonia * mild fluid overload * diastolic heart failure * missed HD treatment this week (on 01/10) * COPD * weaned off supplemental oxygen * continue current therapy as outlined (3) Pneumonia: Code(s): J18.9 - Pneumonia, unspecified organism Status: Acute Assessment and Plan: * clinical improvement noted * as suggested by admission imaging: * CXR with bibasilar airspace disease with crowding of the pulmonary vessels due to low lung lines * viral testing for influenza/RSV/COVID negative * follow culture data - negative to date * on antibiotics (4) Chronic diastolic heart failure: Code(s): I50.32 - Chronic diastolic (congestive) heart failure Status: Acute Assessment and Plan: * first noted in 2020 * compensated with fluid removal with dialysis * mild fluid overload/exacerbation due to missed treatment (on 01/10) * s/p DUF session (on 01/13) with 3L fluid removal * continue supportive therapy (5) Anemia: Qualifiers: Anemia type: unspecified type Qualified Code(s): D64.9 - Anemia, unspecified Code(s): D64.9 - Anemia, unspecified Status: Chronic Assessment and Plan: * due to ESRD * Epogen with HD * follow trend of H/H (6) Hypertension: Qualifiers: Hypertension type: primary hypertension Qualified Code(s): I10 - Essential (primary) hypertension Code(s): I10 - Essential (primary) hypertension Status: Chronic Assessment and Plan: * reasonable control at this time * follow trend of hemodynamics (7) Chronic obstructive pulmonary disease: Qualifiers: COPD type: emphysema Emphysema type: unspecified Qualified Code(s): J 43.9 - Emphysema, unspecified Code(s): J44.9 - Chronic obstructive pulmonary disease, unspecified Status: Chronic Assessment and Plan: * no evidence of acute exacerbation * maybe partly played a role with #2 (8) Insulin dependent type 2 diabetes mellitus: Code(s): E11.9 - Type 2 diabetes mellitus without complications; 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 Will continue to follow. L Subjective Date/time seen: 01/19/25 12:20 Interval history: Follow-up for end stage renal disease on hemodialysis. Tolerating dialysis treatment at the time of my visit (seen on HD at 12:10pm); no apparent distress noted when seen; breathing/respiratory status appears stable if not back to baseline; no new events/issues overnight or earlier this morning; still awaiting placement status with regard to discharge. Exam 2 Narrative: General: elderly but WD/WN male in NAD Heart: normal S1 and S2; no rub Lungs: clear anteriorly Abdomen: soft, nontender, nondistended, positive bowel sounds Extremities: no cyanosis or clubbing; no edema; s/p right AKA Skin: warm and intact Objective Data Vital Signs Vital Signs: Vital Signs Temp Pulse Resp BP Pulse Ox O2 Del Method 01/19/25 12:00 82 93/36 L 01/19/25 11:45 81 163/56 H 01/19/25 11:30 80 141/61 H 01/19/25 11:15 79 128/54 L 01/19/25 11:00 79 124/48 L 01/19/25 10:45 78 90/40 L 01/19/25 10:30 78 108/54 L 01/19/25 10:15 79 89/45 L 01/19/25 10:00 77 123/45 L 01/19/25 09:45 78 111/48 L 01/19/25 09:30 78 106/35 L 01/19/25 09:15 78 89/37 L 01/19/25 09:00 77 97/58 L 01/19/25 08:48 80 108/64 01/19/25 08:35 98.2 F 81 14 110/66 98 01/19/25 08:00 Room Air 01/19/25 06:00 97.6 F 82 18 154/73 H 92 01/19/25 01:48 85 16 01/18/25 22:00 97.3 F L 81 18 130/63 99 01/18/25 21:26 83 16 01/18/25 21:20 81 16 01/18/25 21:20 95 Room Air 01/18/25 21:01 85 01/18/25 20:00 Room Air Intake/Output Intake/Output: Intake & Output 01/16/25 01/17/25 01/18/25 01/19/25 23:59 23:59 23:59 23:59 Intake Total 800 720 960 440 Output Total 800 2200 1200 Balance 0 -1480 960 -760 Meds/Results Medications: Active Medications Generic Name Dose Route Start Last Admin Trade Name Freq PRN Reason Stop Dose Admin Acetaminophen 650 mg 01/12/25 17:13 Acetaminophen 325 Mg Tablet PO Q4H PRN Mild Pain (1-3) or Fever Hydrocodone Bitart/Acetaminophen 1 tab 01/12/25 14:26 01/17/25 17:36 Hydrocodone/Acetaminophen (*Crx) 5-325 Mg Tablet PO 1 tab Q4H PRN Administration Pain Rated 4-6 Albuterol/Ipratropium 3 ml 01/12/25 20:00 01/19/25 14:24 Ipratropium 0.5 Mg/Albuterol Sulfate 2.5 Mg Ampul.Neb 3 Ml INHALATION 3 ml Q6HRT MADIE Administration Allopurinol 100 mg 01/13/25 09:00 01/19/25 13:00 Allopurinol 100 Mg Tablet PO 100 mg DAILY MADIE Administration Atorvastatin Calcium 80 mg 01/12/25 21:50 01/18/25 21:00 Atorvastatin 40 Mg Tablet PO 80 mg HS MADIE Administration Calcium Acetate 667 mg 01/13/25 08:00 01/19/25 13:00 Calcium Acetate 667 Mg Tablet PO 667 mg TIDWM MADIE Administration Carvedilol 25 mg 01/12/25 21:00 01/19/25 12:59 Carvedilol 25 Mg Tablet PO 25 mg Q12H MADIE Administration Clopidogrel Bisulfate 75 mg 01/13/25 09:00 01/19/25 13:00 Clopidogrel Bisulfate 75 Mg Tablet PO 75 mg DAILY MADIE Administration Dextrose 12.5 gm 01/12/25 17:13 Dextrose 50% 25 Gm/50 Ml Syringe IV PUSH PRN PRN Hypoglycemia Protocol Docusate Sodium 100 mg 01/12/25 17:13 Docusate Sodium 100 Mg Capsule PO BID PRN Constipation Ezetimibe 10 mg 01/13/25 09:00 01/19/25 13:00 Ezetimibe 10 Mg Tablet PO 10 mg DAILY MADIE Administration Epoetin Patel-epbx 20,000 units 01/19/25 18:17 01/19/25 10:59 Epoetin Patel-Epbx 20,000 Units/Ml Vial IV PUSH 01/19/25 18:18 20,000 units ONCE ONE Administration Furosemide 80 mg 01/13/25 09:00 01/19/25 12:57 Furosemide 80 Mg Tablet PO Not Given QAM MADIE Gabapentin 100 mg 01/13/25 09:00 01/19/25 13:00 Gabapentin 100 Mg Capsule PO 100 mg DAILY MADIE Administration Glucagon 1 mg 01/12/25 17:13 Glucagon For Inj 1 Mg Vial IM PRN PRN Hypoglycemia Protocol Glucose 15 gm 01/12/25 17:13 Glucose Oral Gel 15 Gm Of Glucse In 37.5 Gm Tube PO PRN PRN Hypoglycemia Protocol Dextrose 1,000 mls @ 100 mls/hr 01/12/25 17:13 Dextrose 5% 1,000 Ml IVPB PRN PRN Hypoglycemia Protocol Albumin Human 50 mls @ 999 mls/hr 01/13/25 06:44 01/14/25 10:42 Albutein IVPB 02/12/25 06:43 999 mls/hr Q10M PRN Administration HYPOTENSION Insulin Aspart 2 - 5 units 01/13/25 08:00 01/19/25 13:00 Insulin Aspart (*Bkc) 100 Units/Ml SUB-Q Not Given TIDWM [facility] Protocol Insulin Aspart 1 - 2 units 01/12/25 21:00 01/18/25 21:02 Insulin Aspart (*Bkc) 100 Units/Ml SUB-Q Not Given HS [facility] Protocol Insulin Glargine 25 units 01/12/25 21:50 01/18/25 21:02 Insulin Glargine (*Bkc) 100 Units/Ml SUB-Q 25 units HS MADIE Administration Irbesartan 150 mg 01/13/25 09:00 01/14/25 12:32 Irbesartan 150 Mg Tablet PO 150 mg DAILY MADIE Administration Isosorbide Dinitrate 5 mg 01/12/25 21:50 01/19/25 12:57 Isosorbide Dinitrate 5 Mg Tablet PO Not Given BID [facility] Lidocaine/Prilocaine 1 each 01/13/25 15:43 01/14/25 07:56 Lidocaine/Prilocaine Cream 2.5-2.5% Tube TOPICAL 1 each WITH DIALYSIS PRN Administration Pain Methocarbamol 500 mg 01/12/25 21:43 Methocarbamol 500 Mg Tablet PO QID PRN Muscle spasms Morphine Sulfate 2 mg 01/12/25 14:26 Morphine Sulfate (*Crx) 2 Mg/Ml Inj IV PUSH Q2H PRN Pain Rated 7-10 Nitroglycerin 0.4 mg 01/12/25 21:38 Nitroglycerin Sl 0.4 Mg Tablet SUBLINGUAL Q5MIN PRN chest pain Pantoprazole Sodium 40 mg 01/13/25 09:00 01/19/25 13:00 Pantoprazole 40 Mg Tablet PO 40 mg QAM MADIE Administration Prednisolone Acetate 1 drop 01/12/25 21:40 01/19/25 13:01 Prednisolone Acetate 1% Ophth 5 Ml EACH EYE 1 drop Q12HR MADIE Administration Promethazine HCl 12.5 mg 01/12/25 14:26 Promethazine Hcl 25 Mg/Ml Ampul IV PUSH Q6H PRN Nausea Vitamin D 125 mcg 01/13/25 09:00 01/19/25 13:00 Cholecalciferol (Vitamin D3) 125 Mcg (5,000 Units) Tablet PO 125 mcg DAILY MADIE Administration Radiology Results: ITS Impressions Chest X-Ray 01/12/25 10:53 Impression: 1: Bibasilar airspace disease with crowding of the pulmonary vessels due to low lung lines. Considerations include edema, atelectasis and/or pneumonia. Labs Labs: Laboratory Tests 01/19/25 04:59 01/19/25 04:59 Calcium 8.8 Phosphorus 5.8 H Total Bilirubin 1.4 H AST 32 ALT 20 Alkaline Phosphatase 84 Total Protein 6.7 Albumin 3.5 Microbiology 01/16/25 09:48 Sputum Sputum White Blood Cells - Final 01/16/25 09:48 Sputum Sputum Epithelial Cells - Final 01/16/25 09:48 Sputum Gram Stain Sputum Result 1 - Final 01/16/25 09:48 Sputum Gram Stain Sputum Result 2 - Final 01/16/25 09:48 Sputum Gram Stain Sputum Result 3 - Final 01/16/25 09:48 Sputum Gram Stain Sputum Result 4 - Final 01/16/25 09:48 Sputum Gram Stain Evaluation - Final 01/16/25 09:48 Sputum Sputum Culture - Final 01/12/25 15:54 Blood Blood Culture - Final 01/12/25 14:48 Blood Blood Culture - Final
[2025-01-19] MEDS: EZETIMIBE 10 MG TABLET PO (13:00)
[2025-01-19] MEDS: CALCIUM ACETATE 667 MG TABLET PO ×2 (13:00→17:22)
[2025-01-19] MEDS: PANTOPRAZOLE 40 MG TABLET PO (13:00)
[2025-01-19] MEDS: CLOPIDOGREL BISULFATE 75 MG TABLET PO (13:00)
[2025-01-19] MEDS: CHOLECALCIFEROL (VITAMIN D3) 125 MCG (5,000 UNITS) TABLET PO (13:00)
[2025-01-19] MEDS: GABAPENTIN 100 MG CAPSULE PO (13:00)
[2025-01-19] MEDS: prednisoLONE ACETATE 1% OPHTH 5 ML 1 DROP EACH EYE ×2 (13:01→21:16)
[2025-01-19] MEDS: ISOSORBIDE DINITRATE 5 MG TABLET PO (17:22)
[2025-01-19] MEDS: HYDROcodone/acetaminophen (*CRX) 5-325 MG TABLET 1 TAB PO (19:27)
[2025-01-19] MEDS: ATORVASTATIN 40 MG TABLET 80 MG PO (21:10)
[2025-01-19] MEDS: INSULIN GLARGINE (*BKC) 100 UNITS/ML 25 UNITS SUB-Q (21:10)
[2025-01-20] VITALS (14 sets, daily range): BP systolic 98–153; BP diastolic 57–71; PULSE 80–89; RESP 15–20; TEMP 36.2–36.7; O2SAT 93–97
[2025-01-20 05:07] LABS: Hematocrit 30.5 % (42.0-52.0); Hemoglobin 9.9 g/dL (14.0-18.0); Immature Granulocyte Percent A 0.9 % (0-0.5); Lymphocytes Absolute Auto 1.94 K/mm3 (0.9-3.2); Mean Corpuscular HGB Conc 32.5 g/dl (32-36); Mean Corpuscular Hemoglobin 33.2 pg (26-34); Mean Corpuscular Volume 102.3 fl (80-100); Nucleated Red Blood Cells Absolute Auto 0.000 K/mm3 (0.0-0.012); Nucleated Red Blood Cells Perc 0.0 % (0.0-0.2); Platelet Count Result 157 k/mm3 (150-375); Red Blood Count 2.98 M/mm3 (4.6-6.20); White Blood Count 7.5 K/mm3 (4.5-10.0)
[2025-01-20 05:20] LABS: Alanine Aminotransferase 22 U/L (6-50); Albumin Level 3.6 g/dL (3.5-5.1); Alkaline Phosphatase 69 U/L (38-126); Anion Gap 9 mmol/L (4-12); Aspartate Amino Transferase 34 U/L (17-59); Bilirubin,Total 0.9 mg/dL (0.2-1.3); Blood Urea Nitrogen 28 mg/dL (9-20); Calcium 8.8 mg/dL (8.4-10.2); Carbon Dioxide 26 mmol/L (22-30); Chloride 97 mmol/L (98-107); Estimated CRCL calculation 11 ml/min; Estimated Glomerular Filt Rate 10; Glucose 85 mg/dL (65-110); Potassium 4.2 mmol/L (3.4-5.0); Sodium 132 mmol/L (137-145); Total Protein 6.8 g/dL (6.3-8.2)
--- NOTE | 2025-01-20 05:50 | PC.NURSE ---
Pt had N/V earlier in the day 01/19, this had subsided by evening when pt was assessed during rounds. Pt had 2-3 episodes of emesis overnight but did not notify staff of this. Pt last BM was 01/15, miralax was ordered for this prior to pt notifying staff of emesis overnight, pt threw up miralax <30min after taking it this morning. Julian Jordan [employer]IFORM MAKER was notified of patient condition, no new orders, administer antiemetics as needed and continue to monitor at this time.
[2025-01-20] MEDS: PROMETHAZINE HCL 25 MG/ML AMPUL 12.5 MG IV PUSH (06:25)
[2025-01-20] MEDS: IPRATROPIUM 0.5 MG/ALBUTEROL SULFATE 2.5 MG AMPUL.NEB 3 ML INHALATION ×3 (08:18→21:29)
[2025-01-20] MEDS: CHOLECALCIFEROL (VITAMIN D3) 125 MCG (5,000 UNITS) TABLET PO (09:33)
[2025-01-20] MEDS: PANTOPRAZOLE 40 MG TABLET PO (09:33)
[2025-01-20] MEDS: CLOPIDOGREL BISULFATE 75 MG TABLET PO (09:33)
[2025-01-20] MEDS: FUROSEMIDE 80 MG TABLET PO (09:33)
[2025-01-20] MEDS: GABAPENTIN 100 MG CAPSULE PO (09:33)
[2025-01-20] MEDS: EZETIMIBE 10 MG TABLET PO (09:34)
[2025-01-20] MEDS: CALCIUM ACETATE 667 MG TABLET PO ×3 (09:34→17:22)
[2025-01-20] MEDS: ISOSORBIDE DINITRATE 5 MG TABLET PO (09:34)
[2025-01-20] MEDS: prednisoLONE ACETATE 1% OPHTH 5 ML 1 DROP EACH EYE ×2 (09:41→21:58)
--- NOTE | 2025-01-20 12:19 | PM.PNNEP ---
Progress Note: A&P Assessment and Plan (1) End stage renal disease: Code(s): N18.6 - End stage renal disease Status: Chronic Assessment and Plan: HD went well yesterday. continue dialysis schedule of T/T/S while hospitalized Labs look okay Volume status looks okay Chest x-ray on admission showed fluid. Will recheck a chest x-ray today before he goes so we know what to do tomorrow (whether he gets dialysis here or at the clinic) Patient is deciding whether to go home or to an outpatient rehab. If he goes to the latter he will need transportation to dialysis (2) Acute hypoxic respiratory failure: Code(s): J96.01 - Acute respiratory failure with hypoxia Status: Acute Assessment and Plan: resolved as noted on presentation suspect multifactorial etiology: pneumonia mild fluid overload diastolic heart failure missed HD treatment this week (on 01/10) COPD weaned off supplemental oxygen continue current therapy as outlined See what the chest x-ray shows to determine fluid removal for tomorrow (3) Pneumonia: Code(s): J18.9 - Pneumonia, unspecified organism Status: Acute Assessment and Plan: clinical improvement noted as suggested by admission imaging: CXR with bibasilar airspace disease with crowding of the pulmonary vessels due to low lung lines viral testing for influenza/RSV/COVID negative follow culture data - negative to date Finished course of antibiotics (4) Chronic diastolic heart failure: Code(s): I50.32 - Chronic diastolic (congestive) heart failure Status: Acute Assessment and Plan: first noted in 2020 compensated with fluid removal with dialysis mild fluid overload/exacerbation due to missed treatment (on 01/10) s/p DUF session (on 01/13) with 3L fluid removal See what his chest x-ray shows to determine fluid removal tomorrow (5) Anemia: Qualifiers: Anemia type: unspecified type Qualified Code(s): D64.9 - Anemia, unspecified Code(s): D64.9 - Anemia, unspecified Status: Chronic Assessment and Plan: due to ESRD Epogen with HD Hemoglobin almost target at 9.9 (6) Hypertension: Qualifiers: Hypertension type: primary hypertension Qualified Code(s): I10 - Essential (primary) hypertension Code(s): I10 - Essential (primary) hypertension Status: Chronic Assessment and Plan: Blood pressure 100-150 today. Yesterday the blood pressure dropped with fluid removal. 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 Cough is better. No longer short of breath. Off oxygen. Due for dialysis tomorrow Exam Narrative: General: elderly but WD/WN male in NAD Heart: normal S1 and S2; no rub or gallop Lungs: clear anteriorly Abdomen: soft, nontender, nondistended, positive bowel sounds Extremities: no cyanosis or clubbing; no edema; s/p right AKA Skin: No rash Objective Data Vital Signs Vital Signs: Vital Signs - 24 hr 01/19/25 12:25 01/19/25 12:35 01/19/25 12:59 Temperature 98.2 F Pulse Rate 84 82 82 Respiratory Rate 16 Blood Pressure 156/52 H 108/38 L Pulse Oximetry 98 Oxygen Delivery 01/19/25 14:18 01/19/25 14:25 01/19/25 14:33 Temperature 97.0 F L Pulse Rate 73 86 85 Respiratory Rate 18 19 16 Blood Pressure 137/74 Pulse Oximetry 96 Oxygen Delivery 01/19/25 14:35 01/19/25 20:00 01/19/25 20:06 Temperature 97.1 F L Pulse Rate 86 83 Respiratory Rate 20 Blood Pressure 124/60 Pulse Oximetry 98 91 Oxygen Delivery Room Air Room Air 01/19/25 21:11 01/19/25 21:21 01/19/25 21:26 Temperature Pulse Rate 83 83 88 Respiratory Rate 18 18 Blood Pressure Pulse Oximetry Oxygen Delivery 01/20/25 05:15 01/20/25 08:18 01/20/25 08:21 Temperature 98.0 F Pulse Rate 84 85 Respiratory Rate 20 17 Blood Pressure 153/71 H Pulse Oximetry 93 96 Oxygen Delivery Room Air 01/20/25 08:25 01/20/25 08:29 01/20/25 09:34 Temperature Pulse Rate 86 80 Respiratory Rate 17 Blood Pressure Pulse Oximetry Oxygen Delivery Room Air Intake/Output Intake/Output: Intake & Output 01/17/25 01/18/25 01/19/25 01/20/25 23:59 23:59 23:59 23:59 Intake Total 720 960 980 400 Output Total 2200 1200 Balance -1480 960 -220 400 Meds/Results Medications: Active Medications Generic Name Dose Route Start Last Admin Trade Name Freq PRN Reason Stop Dose Admin Acetaminophen 650 mg 01/12/25 17:13 Acetaminophen 325 Mg Tablet PO Q4H PRN Mild Pain (1-3) or Fever Hydrocodone Bitart/Acetaminophen 1 tab 01/12/25 14:26 01/19/25 19:27 Hydrocodone/Acetaminophen (*Crx) 5-325 Mg Tablet PO 1 tab Q4H PRN Administration Pain Rated 4-6 Albuterol/Ipratropium 3 ml 01/12/25 20:00 01/20/25 08:18 Ipratropium 0.5 Mg/Albuterol Sulfate 2.5 Mg Ampul.Neb 3 Ml INHALATION 3 ml Q6HRT MADIE Administration Allopurinol 100 mg 01/13/25 09:00 01/20/25 09:33 Allopurinol 100 Mg Tablet PO 100 mg DAILY MADIE Administration Atorvastatin Calcium 80 mg 01/12/25 21:50 01/19/25 21:10 Atorvastatin 40 Mg Tablet PO 80 mg HS MADIE Administration Calcium Acetate 667 mg 01/13/25 08:00 01/20/25 09:34 Calcium Acetate 667 Mg Tablet PO 667 mg TIDWM MADIE Administration Carvedilol 25 mg 01/12/25 21:00 01/20/25 09:34 Carvedilol 25 Mg Tablet PO 25 mg Q12H MADIE Administration Clopidogrel Bisulfate 75 mg 01/13/25 09:00 01/20/25 09:33 Clopidogrel Bisulfate 75 Mg Tablet PO 75 mg DAILY MADIE Administration Dextrose 12.5 gm 01/12/25 17:13 Dextrose 50% 25 Gm/50 Ml Syringe IV PUSH PRN PRN Hypoglycemia Protocol Docusate Sodium 100 mg 01/12/25 17:13 Docusate Sodium 100 Mg Capsule PO BID PRN Constipation Ezetimibe 10 mg 01/13/25 09:00 01/20/25 09:34 Ezetimibe 10 Mg Tablet PO 10 mg DAILY MADIE Administration Furosemide 80 mg 01/13/25 09:00 01/20/25 09:33 Furosemide 80 Mg Tablet PO 80 mg QAM MADIE Administration Gabapentin 100 mg 01/13/25 09:00 01/20/25 09:33 Gabapentin 100 Mg Capsule PO 100 mg DAILY MADIE Administration Glucagon 1 mg 01/12/25 17:13 Glucagon For Inj 1 Mg Vial IM PRN PRN Hypoglycemia Protocol Glucose 15 gm 01/12/25 17:13 Glucose Oral Gel 15 Gm Of Glucse In 37.5 Gm Tube PO PRN PRN Hypoglycemia Protocol Dextrose 1,000 mls @ 100 mls/hr 01/12/25 17:13 Dextrose 5% 1,000 Ml IVPB PRN PRN Hypoglycemia Protocol Albumin Human 50 mls @ 999 mls/hr 01/13/25 06:44 01/14/25 10:42 Albutein IVPB 02/12/25 06:43 999 mls/hr Q10M PRN Administration HYPOTENSION Insulin Aspart 2 - 5 units 01/13/25 08:00 01/20/25 08:35 Insulin Aspart (*Bkc) 100 Units/Ml SUB-Q Not Given TIDWM [facility] Protocol Insulin Aspart 1 - 2 units 01/12/25 21:00 01/19/25 21:11 Insulin Aspart (*Bkc) 100 Units/Ml SUB-Q Not Given HS [facility] Protocol Insulin Glargine 25 units 01/12/25 21:50 01/19/25 21:10 Insulin Glargine (*Bkc) 100 Units/Ml SUB-Q 25 units HS MADIE Administration Irbesartan 150 mg 01/13/25 09:00 01/14/25 12:32 Irbesartan 150 Mg Tablet PO 150 mg DAILY MADIE Administration Isosorbide Dinitrate 5 mg 01/12/25 21:50 01/20/25 09:34 Isosorbide Dinitrate 5 Mg Tablet PO 5 mg BID MADIE Administration Lidocaine/Prilocaine 1 each 01/13/25 15:43 01/14/25 07:56 Lidocaine/Prilocaine Cream 2.5-2.5% Tube TOPICAL 1 each WITH DIALYSIS PRN Administration Pain Methocarbamol 500 mg 01/12/25 21:43 Methocarbamol 500 Mg Tablet PO QID PRN Muscle spasms Morphine Sulfate 2 mg 01/12/25 14:26 Morphine Sulfate (*Crx) 2 Mg/Ml Inj IV PUSH Q2H PRN Pain Rated 7-10 Nitroglycerin 0.4 mg 01/12/25 21:38 Nitroglycerin Sl 0.4 Mg Tablet SUBLINGUAL Q5MIN PRN chest pain Pantoprazole Sodium 40 mg 01/13/25 09:00 01/20/25 09:33 Pantoprazole 40 Mg Tablet PO 40 mg QAM MADIE Administration Polyethylene Glycol 17 gm 01/20/25 05:03 01/20/25 05:15 Polyethylene Glycol 3350 17 Gm Powd.Pack PO 17 gm QAM PRN Administration Constipation Prednisolone Acetate 1 drop 01/12/25 21:40 01/20/25 09:41 Prednisolone Acetate 1% Ophth 5 Ml EACH EYE 1 drop Q12HR MADIE Administration Promethazine HCl 12.5 mg 01/12/25 14:26 01/20/25 06:25 Promethazine Hcl 25 Mg/Ml Ampul IV PUSH 12.5 mg Q6H PRN Administration Nausea Vitamin D 125 mcg 01/13/25 09:00 01/20/25 09:33 Cholecalciferol (Vitamin D3) 125 Mcg (5,000 Units) Tablet PO 125 mcg DAILY MADIE Administration Radiology Results: ITS Impressions Chest X-Ray 01/12/25 10:53 Impression: 1: Bibasilar airspace disease with crowding of the pulmonary vessels due to low lung lines. Considerations include edema, atelectasis and/or pneumonia. Labs Labs: Laboratory Results - last 24 hr 01/19/25 01/19/25 01/19/25 12:49 17:08 20:04 WBC RBC Hgb Hct MCV MCH MCHC RDW Plt Count MPV Immature Gran % (Auto) Neut % (Auto) Lymph % (Auto) [place] % (Auto) Eos % (Auto) Baso % (Auto) Lymph # (Auto) [place] # (Auto) Eos # (Auto) Baso # (Auto) Abs Immat Gran (auto) Absolute Neuts (auto) Absolute Nucleated RBC Nucleated RBC % Sodium Potassium Chloride Carbon Dioxide Anion Gap BUN Creatinine Estim Creat Clear Calc Estimated GFR Glucose POC Capillary Glucose 115 H 124 H 157 H Calcium Phosphorus Total Bilirubin AST ALT Alkaline Phosphatase Total Protein Albumin 01/20/25 01/20/25 01/20/25 04:52 04:53 06:21 WBC 7.5 RBC 2.98 L Hgb 9.9 L Hct 30.5 L MCV 102.3 H MCH 33.2 MCHC 32.5 RDW 14.4 Plt Count 157 MPV 9.3 Immature Gran % (Auto) 0.9 H Neut % (Auto) 59.6 Lymph % (Auto) 26.0 [place] % (Auto) 13.1 H Eos % (Auto) 0.0 Baso % (Auto) 0.4 Lymph # (Auto) 1.94 [place] # (Auto) 1.0 H Eos # (Auto) 0.0 Baso # (Auto) 0.0 Abs Immat Gran (auto) 0.07 H Absolute Neuts (auto) 4.4 Absolute Nucleated RBC 0.000 Nucleated RBC % 0.0 Sodium 132 L Potassium 4.2 Chloride 97 L Carbon Dioxide 26 Anion Gap 9 BUN 28 H D Creatinine 5.68 H Estim Creat Clear Calc 11 Estimated GFR 10 L Glucose 85 POC Capillary Glucose 92 Calcium 8.8 Phosphorus 4.4 Total Bilirubin 0.9 AST 34 ALT 22 Alkaline Phosphatase 69 Total Protein 6.8 Albumin 3.6 01/20/25 01/20/25 07:53 11:41 WBC RBC Hgb Hct MCV MCH MCHC RDW Plt Count MPV Immature Gran % (Auto) Neut % (Auto) Lymph % (Auto) [place] % (Auto) Eos % (Auto) Baso % (Auto) Lymph # (Auto) [place] # (Auto) Eos # (Auto) Baso # (Auto) Abs Immat Gran (auto) Absolute Neuts (auto) Absolute Nucleated RBC Nucleated RBC % Sodium Potassium Chloride Carbon Dioxide Anion Gap BUN Creatinine Estim Creat Clear Calc Estimated GFR Glucose POC Capillary Glucose 103 106 H Calcium Phosphorus Total Bilirubin AST ALT Alkaline Phosphatase Total Protein Albumin
[2025-01-20] MEDS: HYDROcodone/acetaminophen (*CRX) 5-325 MG TABLET 1 TAB PO (12:33)
--- NOTE | 2025-01-20 13:20 | P.PNIM_ITS ---
Progress Note: A&P Assessment and Plan (1) ESRD needing dialysis: Code(s): N18.6 - End stage renal disease; Z99.2 - Dependence on renal dialysis Status: Acute Assessment and Plan: * Fluid overload on exam upon admission * Dialysis T/T/S * Nephrology consulted, appreciate further recommendations * HD on 01/12 - will likely go for another session today 01/13 * Continue phosphate binders * Monitor daily labs * Nephrology consult - appreciate further recommendations * Kidney function near baseline * Unchanged, stable - continue Dialysis while admitted * Cleared for discharge from a Nephrology standpoint continue HD while hospitalized placement pending (2) Pneumonia: Qualifiers: Laterality: unspecified laterality Lung location: unspecified part of lung Pneumonia type: due to unspecified organism Qualified Code(s): J18.9 - Pneumonia, unspecified organism Code(s): J18.9 - Pneumonia, unspecified organism Status: Acute Assessment and Plan: * CXR: Bibasilar airspace disease with crowding of the pulmonary vessels due to low lung lines. Considerations include edema, atelectasis and/or pneumonia. * started on CAP tx: azithromycin & ceftriaxone * Viral PCR: negative for Flu/COVID/RSV * Consider ordering legionella, mycoplasma and pneumococcal * no supplemental O2 requirement * supportive treatment * Monitor vital signs, I&Os, neuro status and patient is a fall risk * Follow WBC, serum electrolytes, temperature curves and cultures * Gentle IV fluid resuscitation * Guaifenesin, DuoNebs * Remains afebrile without leukocytosis or productive lung sounds, denies cough * Continue Augmentin, azithromycin through 01/18 -last day of antibiotics today completed antibiotic course continue to monitor, IS, ambulation placement pending (3) Diastolic congestive heart failure: Qualifiers: Heart failure chronicity: unspecified Qualified Code(s): I50.30 - Unspecified diastolic (congestive) heart failure Code(s): I50.30 - Unspecified diastolic (congestive) heart failure Status: Acute Assessment and Plan: * HD Thursday * Pulmonary edema on x-ray * IV Lasix x1 * Dialysis * Continue p.o. 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 HS * SSI and Lantus * Continue Zetia (5) Coronary artery disease: Qualifiers: Associated angina: without angina Coronary Disease-Associated Artery/Lesion type: [place] artery [place] vs. transplanted heart: [place] heart Qualified Code(s): I25.10 - Atherosclerotic heart disease of [place] coronary artery without angina pectoris Code(s): I25.10 - Atherosclerotic heart disease of [place] coronary artery without angina pectoris Status: Chronic Assessment and Plan: * Continue Lipitor, Zetia, isosorbide, nitro, and carvedilol (6) Weakness: Code(s): R53.1 - Weakness Status: Acute Assessment and Plan: * Multifactorial * Likely 2/2 to underlying infection, ESRD/missed dialysis * PT/OT evals - recommend further rehab (SNF, [facility]) * Working with CC regarding placement - pt needs dialysis T/T/S, facility will need to work with this schedule * Still waiting on placement - [facility] has sent referrals to [facility] and [facility] Date/time seen: 01/20/25 13:20 Interval history: Patient is afebrile, hemodynamically stable Labs reviewed patient feels better today, dyspnea is improving, patient still has general weakness, cannot ambulate without assistance. Patient denies headache, focal weakness, vision change, abnormal sensation Exam Narrative: GENERAL: Pleasant, in no acute distress. Well-nourished. - EYES: EOMI. Anicteric. - HENT: Moist mucous membranes. - LUNGS: Clear to auscultation bilateral ly, no wheezing, rhonchi, or rales. - CARDIOVASCULAR: Regular rate and rhyth m. No murmur. No JVD. - ABDOMEN: Soft, non-tender and non-dist ended. No palpable masses. - EXTREMITIES: No edema. Peripheral puls es 2+. Non-tender. - NEUROLOGIC: No focal neurological defi cits. CN II-XII grossly intact. - PSYCHIATRIC: Awake, Alert and oriented x 3. Appropriate mood and affect. general weakness - SKIN: No rashes or lesions. Warm. - LYMPH: No cervical lymphadenopathy. Objective Data Vital Signs Vital Signs: Vital Signs - 24 hr 01/19/25 14:18 01/19/25 14:25 01/19/25 14:33 Temperature 97.0 F L Pulse Rate 73 86 85 Respiratory Rate 18 19 16 Blood Pressure 137/74 Pulse Oximetry 96 Oxygen Delivery 01/19/25 14:35 01/19/25 20:00 01/19/25 20:06 Temperature 97.1 F L Pulse Rate 86 83 Respiratory Rate 20 Blood Pressure 124/60 Pulse Oximetry 98 91 Oxygen Delivery Room Air Room Air 01/19/25 21:11 01/19/25 21:21 01/19/25 21:26 Temperature Pulse Rate 83 83 88 Respiratory Rate 18 18 Blood Pressure Pulse Oximetry Oxygen Delivery 01/20/25 05:15 01/20/25 08:18 01/20/25 08:21 Temperature 98.0 F Pulse Rate 84 85 Respiratory Rate 20 17 Blood Pressure 153/71 H Pulse Oximetry 93 96 Oxygen Delivery Room Air 01/20/25 08:25 01/20/25 08:29 01/20/25 09:34 Temperature Pulse Rate 86 80 Respiratory Rate 17 Blood Pressure Pulse Oximetry Oxygen Delivery Room Air Intake/Output Intake/Output: Intake & Output 01/17/25 01/18/25 01/19/25 01/20/25 23:59 23:59 23:59 23:59 Intake Total 720 960 980 640 Output Total 2200 1200 Balance -1480 960 -220 640 Meds/Results Medications: Active Medications Generic Name Dose Route Start Last Admin Trade Name Freq PRN Reason Stop Dose Admin Acetaminophen 650 mg 01/12/25 17:13 Acetaminophen 325 Mg Tablet PO Q4H PRN Mild Pain (1-3) or Fever Hydrocodone Bitart/Acetaminophen 1 tab 01/12/25 14:26 01/20/25 12:33 Hydrocodone/Acetaminophen (*Crx) 5-325 Mg Tablet PO 1 tab Q4H PRN Administration Pain Rated 4-6 Albuterol/Ipratropium 3 ml 01/12/25 20:00 01/20/25 08:18 Ipratropium 0.5 Mg/Albuterol Sulfate 2.5 Mg Ampul.Neb 3 Ml INHALATION 3 ml Q6HRT MADIE Administration Allopurinol 100 mg 01/13/25 09:00 01/20/25 09:33 Allopurinol 100 Mg Tablet PO 100 mg DAILY MADIE Administration Atorvastatin Calcium 80 mg 01/12/25 21:50 01/19/25 21:10 Atorvastatin 40 Mg Tablet PO 80 mg HS MADIE Administration Calcium Acetate 667 mg 01/13/25 08:00 01/20/25 12:31 Calcium Acetate 667 Mg Tablet PO 667 mg TIDWM MADIE Administration Carvedilol 25 mg 01/12/25 21:00 01/20/25 09:34 Carvedilol 25 Mg Tablet PO 25 mg Q12H MADIE Administration Clopidogrel Bisulfate 75 mg 01/13/25 09:00 01/20/25 09:33 Clopidogrel Bisulfate 75 Mg Tablet PO 75 mg DAILY MADIE Administration Dextrose 12.5 gm 01/12/25 17:13 Dextrose 50% 25 Gm/50 Ml Syringe IV PUSH PRN PRN Hypoglycemia Protocol Docusate Sodium 100 mg 01/12/25 17:13 Docusate Sodium 100 Mg Capsule PO BID PRN Constipation Ezetimibe 10 mg 01/13/25 09:00 01/20/25 09:34 Ezetimibe 10 Mg Tablet PO 10 mg DAILY MADIE Administration Furosemide 80 mg 01/13/25 09:00 01/20/25 09:33 Furosemide 80 Mg Tablet PO 80 mg QAM MADIE Administration Gabapentin 100 mg 01/13/25 09:00 01/20/25 09:33 Gabapentin 100 Mg Capsule PO 100 mg DAILY MADIE Administration Glucagon 1 mg 01/12/25 17:13 Glucagon For Inj 1 Mg Vial IM PRN PRN Hypoglycemia Protocol Glucose 15 gm 01/12/25 17:13 Glucose Oral Gel 15 Gm Of Glucse In 37.5 Gm Tube PO PRN PRN Hypoglycemia Protocol Dextrose 1,000 mls @ 100 mls/hr 01/12/25 17:13 Dextrose 5% 1,000 Ml IVPB PRN PRN Hypoglycemia Protocol Albumin Human 50 mls @ 999 mls/hr 01/13/25 06:44 01/14/25 10:42 Albutein IVPB 02/12/25 06:43 999 mls/hr Q10M PRN Administration HYPOTENSION Insulin Aspart 2 - 5 units 01/13/25 08:00 01/20/25 12:31 Insulin Aspart (*Bkc) 100 Units/Ml SUB-Q Not Given TIDWM [facility] Protocol Insulin Aspart 1 - 2 units 01/12/25 21:00 01/19/25 21:11 Insulin Aspart (*Bkc) 100 Units/Ml SUB-Q Not Given [facility] Protocol Insulin Glargine 25 units 01/12/25 21:50 01/19/25 21:10 Insulin Glargine (*Bkc) 100 Units/Ml SUB-Q 25 units HS MADIE Administration Irbesartan 150 mg 01/13/25 09:00 01/14/25 12:32 Irbesartan 150 Mg Tablet PO 150 mg DAILY MADIE Administration Isosorbide Dinitrate 5 mg 01/12/25 21:50 01/20/25 09:34 Isosorbide Dinitrate 5 Mg Tablet PO 5 mg BID MADIE Administration Lidocaine/Prilocaine 1 each 01/13/25 15:43 01/14/25 07:56 Lidocaine/Prilocaine Cream 2.5-2.5% Tube TOPICAL 1 each WITH DIALYSIS PRN Administration Pain Methocarbamol 500 mg 01/12/25 21:43 Methocarbamol 500 Mg Tablet PO QID PRN Muscle spasms Morphine Sulfate 2 mg 01/12/25 14:26 Morphine Sulfate (*Crx) 2 Mg/Ml Inj IV PUSH Q2H PRN Pain Rated 7-10 Nitroglycerin 0.4 mg 01/12/25 21:38 Nitroglycerin Sl 0.4 Mg Tablet SUBLINGUAL Q5MIN PRN chest pain Pantoprazole Sodium 40 mg 01/13/25 09:00 01/20/25 09:33 Pantoprazole 40 Mg Tablet PO 40 mg QAM MADIE Administration Polyethylene Glycol 17 gm 01/20/25 05:03 01/20/25 05:15 Polyethylene Glycol 3350 17 Gm Powd.Pack PO 17 gm QAM PRN Administration Constipation Prednisolone Acetate 1 drop 01/12/25 21:40 01/20/25 09:41 Prednisolone Acetate 1% Ophth 5 Ml EACH EYE 1 drop Q12HR MADIE Administration Promethazine HCl 12.5 mg 01/12/25 14:26 01/20/25 06:25 Promethazine Hcl 25 Mg/Ml Ampul IV PUSH 12.5 mg Q6H PRN Administration Nausea Vitamin D 125 mcg 01/13/25 09:00 01/20/25 09:33 Cholecalciferol (Vitamin D3) 125 Mcg (5,000 Units) Tablet PO 125 mcg DAILY MADIE Administration Radiology Results: ITS Impressions Chest X-Ray 01/12/25 10:53 Impression: 1: Bibasilar airspace disease with crowding of the pulmonary vessels due to low lung lines. Considerations include edema, atelectasis and/or pneumonia. Labs Labs: Laboratory Results - last 24 hr 01/19/25 01/19/25 01/20/25 17:08 20:04 04:52 WBC RBC Hgb Hct MCV MCH MCHC RDW Plt Count MPV Immature Gran % (Auto) Neut % (Auto) Lymph % (Auto) [place] % (Auto) Eos % (Auto) Baso % (Auto) Lymph # (Auto) [place] # (Auto) Eos # (Auto) Baso # (Auto) Abs Immat Gran (auto) Absolute Neuts (auto) Absolute Nucleated RBC Nucleated RBC % Sodium 132 L Potassium 4.2 Chloride 97 L Carbon Dioxide 26 Anion Gap 9 BUN 28 H D Creatinine 5.68 H Estim Creat Clear Calc 11 Estimated GFR 10 L Glucose 85 POC Capillary Glucose 124 H 157 H Calcium 8.8 Phosphorus 4.4 Total Bilirubin 0.9 AST 34 ALT 22 Alkaline Phosphatase 69 Total Protein 6.8 Albumin 3.6 01/20/25 01/20/25 01/20/25 04:53 06:21 07:53 WBC 7.5 RBC 2.98 L Hgb 9.9 L Hct 30.5 L MCV 102.3 H MCH 33.2 MCHC 32.5 RDW 14.4 Plt Count 157 MPV 9.3 Immature Gran % (Auto) 0.9 H Neut % (Auto) 59.6 Lymph % (Auto) 26.0 [place] % (Auto) 13.1 H Eos % (Auto) 0.0 Baso % (Auto) 0.4 Lymph # (Auto) 1.94 [place] # (Auto) 1.0 H Eos # (Auto) 0.0 Baso # (Auto) 0.0 Abs Immat Gran (auto) 0.07 H Absolute Neuts (auto) 4.4 Absolute Nucleated RBC 0.000 Nucleated RBC % 0.0 Sodium Potassium Chloride Carbon Dioxide Anion Gap BUN Creatinine Estim Creat Clear Calc Estimated GFR Glucose POC Capillary Glucose 92 103 Calcium Phosphorus Total Bilirubin AST ALT Alkaline Phosphatase Total Protein Albumin 01/20/25 11:41 WBC RBC Hgb Hct MCV MCH MCHC RDW Plt Count MPV Immature Gran % (Auto) Neut % (Auto) Lymph % (Auto) [place] % (Auto) Eos % (Auto) Baso % (Auto) Lymph # (Auto) [place] # (Auto) Eos # (Auto) Baso # (Auto) Abs Immat Gran (auto) Absolute Neuts (auto) Absolute Nucleated RBC Nucleated RBC % Sodium Potassium Chloride Carbon Dioxide Anion Gap BUN Creatinine Estim Creat Clear Calc Estimated GFR Glucose POC Capillary Glucose 106 H Calcium Phosphorus Total Bilirubin AST ALT Alkaline Phosphatase Total Protein Albumin
[2025-01-20] MEDS: INSULIN GLARGINE (*BKC) 100 UNITS/ML 25 UNITS SUB-Q (21:57)
[2025-01-20] MEDS: ATORVASTATIN 40 MG TABLET 80 MG PO (21:57)
[2025-01-21] VITALS (30 sets, daily range): BP systolic 86–155; BP diastolic 42–73; PULSE 70–90; RESP 16–20; TEMP 36.1–37; O2SAT 93–97
[2025-01-21] MEDS: IPRATROPIUM 0.5 MG/ALBUTEROL SULFATE 2.5 MG AMPUL.NEB 3 ML INHALATION ×3 (02:53→20:48)
[2025-01-21 05:14] LABS: Hematocrit 27.9 % (42.0-52.0); Hemoglobin 9.0 g/dL (14.0-18.0); Immature Granulocyte Percent A 1.2 % (0-0.5); Lymphocytes Absolute Auto 2.36 K/mm3 (0.9-3.2); Mean Corpuscular HGB Conc 32.3 g/dl (32-36); Mean Corpuscular Hemoglobin 33.1 pg (26-34); Mean Corpuscular Volume 102.6 fl (80-100); Nucleated Red Blood Cells Absolute Auto 0.020 K/mm3 (0.0-0.012); Nucleated Red Blood Cells Perc 0.3 % (0.0-0.2); Platelet Count Result 148 k/mm3 (150-375); Red Blood Count 2.72 M/mm3 (4.6-6.20); White Blood Count 6.5 K/mm3 (4.5-10.0)
[2025-01-21 05:28] LABS: Alanine Aminotransferase 20 U/L (6-50); Albumin Level 3.4 g/dL (3.5-5.1); Alkaline Phosphatase 73 U/L (38-126); Anion Gap 11 mmol/L (4-12); Aspartate Amino Transferase 28 U/L (17-59); Bilirubin,Total 1.0 mg/dL (0.2-1.3); Blood Urea Nitrogen 42 mg/dL (9-20); Calcium 8.5 mg/dL (8.4-10.2); Carbon Dioxide 23 mmol/L (22-30); Chloride 96 mmol/L (98-107); Estimated CRCL calculation 9 ml/min; Estimated Glomerular Filt Rate 8; Glucose 84 mg/dL (65-110); Potassium 3.4 mmol/L (3.4-5.0); Sodium 130 mmol/L (137-145); Total Protein 6.4 g/dL (6.3-8.2)
[2025-01-21] MEDS: LIDOCAINE/PRILOCAINE CREAM 2.5-2.5% TUBE 1 EACH TOPICAL (07:58)
[2025-01-21] MEDS: ALBUMIN HUMAN 25% 12.5 GM/50ML 50 ML IVPB (09:34)
[2025-01-21] MEDS: EPOETIN ALFA-EPBX 10,000 UNITS/ML VIAL 10000 UNITS IV PUSH (10:51)
--- NOTE | 2025-01-21 11:04 | P.PNIM_ITS ---
Progress Note: A&P Assessment and Plan (1) ESRD needing dialysis: Code(s): N18.6 - End stage renal disease; Z99.2 - Dependence on renal dialysis Status: Acute Assessment and Plan: * Fluid overload on exam upon admission * Dialysis T/T/S * Nephrology consulted, appreciate further recommendations * HD on 01/12 - will likely go for another session today 01/13 * Continue phosphate binders * Monitor daily labs * Nephrology consult - appreciate further recommendations * Kidney function near baseline * Unchanged, stable - continue Dialysis while admitted continue HD while hospitalized placement pending (2) Pneumonia: Qualifiers: Pneumonia type: due to unspecified organism Laterality: unspecified laterality Lung location: unspecified part of lung Qualified Code(s): J18.9 - Pneumonia, unspecified organism Code(s): J18.9 - Pneumonia, unspecified organism Status: Acute Assessment and Plan: * CXR: Bibasilar airspace disease with crowding of the pulmonary vessels due to low lung lines. Considerations include edema, atelectasis and/or pneumonia. * started on CAP tx: azithromycin & ceftriaxone * Viral PCR: negative for Flu/COVID/RSV * Consider ordering legionella, mycoplasma and pneumococcal * no supplemental O2 requirement * supportive treatment * Monitor vital signs, I&Os, neuro status and patient is a fall risk * Follow WBC, serum electrolytes, temperature curves and cultures * Gentle IV fluid resuscitation * Guaifenesin, DuoNebs * Remains afebrile without leukocytosis or productive lung sounds, denies cough * Continued Augmentin, azithromycin through 01/18 (3) Diastolic congestive heart failure: Qualifiers: Heart failure chronicity: unspecified Qualified Code(s): I50.30 - Unspecified diastolic (congestive) heart failure Code(s): I50.30 - Unspecified diastolic (congestive) heart failure Status: Acute Assessment and Plan: * HD Thursday * Pulmonary edema on x-ray * Dialysis * Continue p.o. Lasix (4) Type 2 diabetes mellitus: Qualifiers: Diabetes mellitus penitentiary insulin use: with buttermaker helper use Diabetes mellitus complication status: with hyperglycemia Qualified Code(s): E11.65 - Type 2 diabetes mellitus with hyperglycemia; Z79.4 - nursing home (current) use of insulin Code(s): E11.9 - Type 2 diabetes mellitus without complications Status: Acute Assessment and Plan: * Diabetic renal diet * Accu-Cheks a.c. HS * SSI and Lantus * Continue Zetia (5) Coronary artery disease: Qualifiers: Coronary Disease-Associated Artery/Lesion type: [place] artery [place] vs. transplanted heart: saxman heart Associated angina: without angina Q ualified Code(s): I25.10 - Atherosclerotic heart disease of [place] coronary artery without angina pectoris Code(s): I25.10 - Atherosclerotic heart disease of sax[place] coronary artery without angina pectoris Status: Chronic Assessment and Plan: * Continue Lipitor, Zetia, isosorbide, nitro, and carvedilol (6) Weakness: Code(s): R53.1 - Weakness Status: Acute Assessment and Plan: * Multifactorial * Likely 2/2 to underlying infection, ESRD/missed dialysis * PT/OT evals - recommend further rehab (SNF, [facility]) * Working with CC regarding placement - pt needs dialysis T/T/S, facility will need to work with this schedule * Still waiting on placement - accepted at [facility] but awaiting inurance authorization Subjective Date/time seen: 01/21/25 11:04 Interval history: 01/21 seen during dialysis. Tolerating well. Denied chest pain shortness of breath. Denies GI or issues of mine constipation. Denied bleeding. Complaint is left leg pain from knee to ankle. Chronic. Worse with activity. Review of Systems Review of Systems: All systems reviewed & are unremarkable except as noted in HPI and below Exam Narrative: HEENT: PERRL, sclerae nonicteric, pharyngeal mucosa pink and intact NECK: No JVD, adenopathy, or thyromegaly CHEST: Clear to auscultation. Normal effort. HEART: NL S1/S2, regular, no murmur ABDOMEN: BS+, soft, nontender, no mass, no bruits EXTREMITIES: No cyanosis, edema, or clubbing NEUROLOGIC: CN intact and symmetric to inspection. MUSCULOSKELETAL: RLE amputation PSYCH: Alert. Oriented to person, place, and time. Objective Data Vital Signs Vital Signs: Vital Signs - 24 hr 01/20/25 13:32 01/20/25 14:10 01/20/25 14:19 Temperature 97.8 F Pulse Rate 87 89 86 Respiratory Rate 18 15 Blood Pressure 106/57 L Pulse Oximetry 94 Oxygen Delivery 01/20/25 17:26 01/20/25 19:58 01/20/25 20:00 Temperature 97.1 F L Pulse Rate 80 Respiratory Rate 20 Blood Pressure 98/58 L 133/58 L Pulse Oximetry 97 Oxygen Delivery Room Air 01/20/25 21:31 01/20/25 21:32 01/20/25 21:38 Temperature Pulse Rate 81 82 Respiratory Rate 16 16 Blood Pressure Pulse Oximetry 96 Oxygen Delivery Room Air 01/20/25 21:57 01/21/25 02:54 01/21/25 03:01 Temperature Pulse Rate 81 77 78 Respiratory Rate 16 16 Blood Pressure Pulse Oximetry Oxygen Delivery 01/21/25 05:58 01/21/25 08:10 01/21/25 08:36 Temperature 98.0 F 97.9 F Pulse Rate 84 80 82 Respiratory Rate 20 16 Blood Pressure 155/70 H 94/48 L 94/53 L Pulse Oximetry 94 93 Oxygen Delivery 01/21/25 08:45 01/21/25 09:00 01/21/25 09:15 Temperature Pulse Rate 78 78 79 Respiratory Rate Blood Pressure 90/48 L 94/50 L 86/42 L Pulse Oximetry Oxygen Delivery 01/21/25 09:30 01/21/25 09:45 01/21/25 10:00 Temperature Pulse Rate 79 79 70 Respiratory Rate Blood Pressure 95/50 L 97/44 L 112/56 L Pulse Oximetry Oxygen Delivery 01/21/25 10:15 01/21/25 10:30 01/21/25 10:45 Temperature Pulse Rate 78 80 81 Respiratory Rate Blood Pressure 109/55 L 123/64 120/62 Pulse Oximetry Oxygen Delivery Intake/Output Intake/Output: Intake & Output 01/18/25 01/19/25 01/20/25 01/21/25 23:59 23:59 23:59 23:59 Intake Total 625 753 2071 320 Output Total 1200 0 Balance 960 -220 1130 320 Meds/Results Medications: Active Medications Generic Name Dose Route Start Last Admin Trade Name Freq PRN Reason Stop Dose Admin Acetaminophen 650 mg 01/12/25 17:13 Acetaminophen 325 Mg Tablet PO Q4H PRN Mild Pain (1-3) or Fever Hydrocodone Bitart/Acetaminophen 1 tab 01/12/25 14:26 01/20/25 12:33 Hydrocodone/Acetaminophen (*Crx) 5-325 Mg Tablet PO 1 tab Q4H PRN Administration Pain Rated 4-6 Albuterol/Ipratropium 3 ml 01/12/25 20:00 01/21/25 02:53 Ipratropium 0.5 Mg/Albuterol Sulfate 2.5 Mg Ampul.Neb 3 Ml INHALATION 3 ml Q6HRT MADIE Administration Allopurinol 100 mg 01/13/25 09:00 01/20/25 09:33 Allopurinol 100 Mg Tablet PO 100 mg DAILY MADIE Administration Atorvastatin Calcium 80 mg 01/12/25 21:50 01/20/25 21:57 Atorvastatin 40 Mg Tablet PO 80 mg HS MADIE Administration Calcium Acetate 667 mg 01/13/25 08:00 01/20/25 17:22 Calcium Acetate 667 Mg Tablet PO 667 mg TIDWM MADIE Administration Carvedilol 25 mg 01/12/25 21:00 01/20/25 21:57 Carvedilol 25 Mg Tablet PO 25 mg Q12H MADIE Administration Clopidogrel Bisulfate 75 mg 01/13/25 09:00 01/20/25 09:33 Clopidogrel Bisulfate 75 Mg Tablet PO 75 mg DAILY MADIE Administration Dextrose 12.5 gm 01/12/25 17:13 Dextrose 50% 25 Gm/50 Ml Syringe IV PUSH PRN PRN Hypoglycemia Protocol Docusate Sodium 100 mg 01/12/25 17:13 Docusate Sodium 100 Mg Capsule PO BID PRN Constipation Ezetimibe 10 mg 01/13/25 09:00 01/20/25 09:34 Ezetimibe 10 Mg Tablet PO 10 mg DAILY MADIE Administration Furosemide 80 mg 01/13/25 09:00 01/20/25 09:33 Furosemide 80 Mg Tablet PO 80 mg QAM MADIE Administration Gabapentin 100 mg 01/13/25 09:00 01/20/25 09:33 Gabapentin 100 Mg Capsule PO 100 mg DAILY MADIE Administration Glucagon 1 mg 01/12/25 17:13 Glucagon For Inj 1 Mg Vial IM PRN PRN Hypoglycemia Protocol Glucose 15 gm 01/12/25 17:13 Glucose Oral Gel 15 Gm Of Glucse In 37.5 Gm Tube PO PRN PRN Hypoglycemia Protocol Dextrose 1,000 mls @ 100 mls/hr 01/12/25 17:13 Dextrose 5% 1,000 Ml IVPB PRN PRN Hypoglycemia Protocol Albumin Human 50 mls @ 999 mls/hr 01/20/25 21:42 01/21/25 09:34 Albutein IVPB 01/21/25 21:41 999 mls/hr Q10M PRN Administration HYPOTENSION Albumin Human 50 mls @ 999 mls/hr 01/22/25 05:00 Albutein IVPB Q10M PRN HYPOTENSION Insulin Aspart 2 - 5 units 01/13/25 08:00 01/21/25 09:35 Insulin Aspart (*Bkc) 100 Units/Ml SUB-Q Not Given TIDWM [facility] Protocol Insulin Aspart 1 - 2 units 01/12/25 21:00 01/20/25 21:56 Insulin Aspart (*Bkc) 100 Units/Ml SUB-Q Not Given HS [facility] Protocol Insulin Glargine 25 units 01/12/25 21:50 01/20/25 21:57 Insulin Glargine (*Bkc) 100 Units/Ml SUB-Q 25 units HS MADIE Administration Irbesartan 150 mg 01/13/25 09:00 01/14/25 12:32 Irbesartan 150 Mg Tablet PO 150 mg DAILY MADIE Administration Isosorbide Dinitrate 5 mg 01/12/25 21:50 01/20/25 17:24 Isosorbide Dinitrate 5 Mg Tablet PO Not Given BID MADIE Lidocaine/Prilocaine 1 each 01/13/25 15:43 01/21/25 07:58 Lidocaine/Prilocaine Cream 2.5-2.5% Tube TOPICAL 1 each WITH DIALYSIS PRN Administration Pain Methocarbamol 500 mg 01/12/25 21:43 Methocarbamol 500 Mg Tablet PO QID PRN Muscle spasms Morphine Sulfate 2 mg 01/12/25 14:26 Morphine Sulfate (*Crx) 2 Mg/Ml Inj IV PUSH Q2H PRN Pain Rated 7-10 Nitroglycerin 0.4 mg 01/12/25 21:38 Nitroglycerin Sl 0.4 Mg Tablet SUBLINGUAL Q5MIN PRN chest pain Pantoprazole Sodium 40 mg 01/13/25 09:00 01/20/25 09:33 Pantoprazole 40 Mg Tablet PO 40 mg QAM MADIE Administration Polyethylene Glycol 17 gm 01/20/25 05:03 01/20/25 22:01 Polyethylene Glycol 3350 17 Gm Powd.Pack PO 17 gm QAM PRN Administration Constipation Prednisolone Acetate 1 drop 01/12/25 21:40 01/20/25 21:58 Prednisolone Acetate 1% Ophth 5 Ml EACH EYE 1 drop Q12HR MADIE Administration Promethazine HCl 12.5 mg 01/12/25 14:26 01/20/25 06:25 Promethazine Hcl 25 Mg/Ml Ampul IV PUSH 12.5 mg Q6H PRN Administration Nausea Vitamin D 125 mcg 01/13/25 09:00 01/20/25 09:33 Cholecalciferol (Vitamin D3) 125 Mcg (5,000 Units) Tablet PO 125 mcg DAILY MADIE Administration Radiology Results: ITS Impressions Chest X-Ray 01/20/25 14:08 IMPRESSION: 1. Stable appearance of small lung volumes and bibasilar opacities, left greater than right which could represent atelectasis or pneumonia. Labs Labs: Laboratory Results - last 24 hr 01/20/25 01/20/25 01/20/25 11:41 16:56 19:57 WBC RBC Hgb Hct MCV MCH MCHC RDW Plt Count MPV Immature Gran % (Auto) Neut % (Auto) Lymph % (Auto) [place] % (Auto) Eos % (Auto) Baso % (Auto) Lymph # (Auto) [place] # (Auto) Eos # (Auto) Baso # (Auto) Abs Immat Gran (auto) Absolute Neuts (auto) Absolute Nucleated RBC Nucleated RBC % Sodium Potassium Chloride Carbon Dioxide Anion Gap BUN Creatinine Estim Creat Clear Calc Estimated GFR Glucose POC Capillary Glucose 106 H 172 H 197 H Calcium Phosphorus Total Bilirubin AST ALT Alkaline Phosphatase Total Protein Albumin 01/21/25 01/21/25 04:57 07:39 WBC 6.5 RBC 2.72 L Hgb 9.0 L Hct 27.9 L MCV 102.6 H MCH 33.1 MCHC 32.3 RDW 14.6 H Plt Count 148 L MPV 9.5 Immature Gran % (Auto) 1.2 H Neut % (Auto) 48.8 Lymph % (Auto) 36.6 [place] % (Auto) 13.2 H Eos % (Auto) 0.0 Baso % (Auto) 0.2 Lymph # (Auto) 2.36 [place] # (Auto) 0.9 H Eos # (Auto) 0.0 Baso # (Auto) 0.0 Abs Immat Gran (auto) 0.08 H Absolute Neuts (auto) 3.2 Absolute Nucleated RBC 0.020 H Nucleated RBC % 0.3 H Sodium 130 L Potassium 3.4 Chloride 96 L Carbon Dioxide 23 Anion Gap 11 BUN 42 H D Creatinine 7.11 H Estim Creat Clear Calc 9 Estimated GFR 8 L Glucose 84 POC Capillary Glucose 75 Calcium 8.5 Phosphorus 5.4 H Total Bilirubin 1.0 AST 28 ALT 20 Alkaline Phosphatase 73 Total Protein 6.4 Albumin 3.4 L
--- NOTE | 2025-01-21 11:44 | PM.PNNEP ---
Progress Note: A&P Assessment and Plan (1) End stage renal disease: Code(s): N18.6 - End stage renal disease Status: Chronic Assessment and Plan: HD underway continue dialysis schedule of T/T/S while hospitalized Labs look okay Volume status looks okay Chest x-ray on admission showed fluid. repeat chest x-ray still shows some. Will try to take a little bit of fluid off today. Patient is being discharged to inpatient rehab soon. (2) Acute hypoxic respiratory failure: Code(s): J96.01 - Acute respiratory failure with hypoxia Status: Acute Assessment and Plan: resolved as noted on presentation suspect multifactorial etiology: pneumonia mild fluid overload diastolic heart failure missed HD treatment this week (on 01/10) COPD weaned off supplemental oxygen continue current therapy as outlined (3) Pneumonia: Code(s): J18.9 - Pneumonia, unspecified organism Status: Acute Assessment and Plan: clinical improvement noted as suggested by admission imaging: CXR with bibasilar airspace disease with crowding of the pulmonary vessels due to low lung lines viral testing for influenza/RSV/COVID negative follow culture data - negative to date Finished course of antibiotics (4) Chronic diastolic heart failure: Code(s): I50.32 - Chronic diastolic (congestive) heart failure Status: Acute Assessment and Plan: first noted in 2020 compensated with fluid removal with dialysis mild fluid overload/exacerbation due to missed treatment (on 01/10) s/p DUF session (on 01/13) with 3L fluid removal (5) Anemia: Qualifiers: Anemia type: unspecified type Qualified Code(s): D64.9 - Anemia, unspecified Code(s): D64.9 - Anemia, unspecified Status: Chronic Assessment and Plan: due to ESRD Epogen with HD Hemoglobin almost target at 9.9 (6) Hypertension: Qualifiers: Hypertension type: primary hypertension Qualified Code(s): I10 - Essential (primary) hypertension Code(s): I10 - Essential (primary) hypertension Status: Chronic Assessment and Plan: Blood pressure 100-150 today. Yesterday the blood pressure dropped with fluid removal. follow trend of hemodynamics (7) Chronic obstructive pulmonary disease: Qualifiers: COPD type: emphysema Emphysema type: unspecified Qualified Code(s): J43.9 - Emphysema, unspecified Code(s): J44.9 - Chronic obstructive pulmonary disease, unspecified Status: Chronic Assessment and Plan: no evidence of acute exacerbation maybe partly played a role with #2 (8) Insulin dependent type 2 diabetes mellitus: Code(s): E11.9 - Type 2 diabetes mellitus without complications; Z79.4 - custodial (current) use of insulin Status: Acute Assessment and Plan: follow accu-cheks glycemic control per hospitalist Subjective Date/time seen: 01/21/25 11:44 Interval history: patient is on dialysis and tolerating it well . Blood pressure is a little bit on the soft side. Will give albumin so we can get a little more fluid off. His chest x-ray did show some fluid. The patient was seen at 10am Exam Narrative: General: elderly but WD/WN male in NAD Heart: normal S1 and S2; no rub or gallop Lungs: clear bilaterally Abdomen: soft, nontender, nondistended, positive bowel sounds Extremities: no cyanosis or clubbing; no edema; s/p right AKA Skin: No rash or subcu nodules Objective Data Vital Signs Vital Signs: Vital Signs - 24 hr 01/20/25 13:32 01/20/25 14:10 01/20/25 14:19 Temperature 97.8 F Pulse Rate 87 89 86 Respiratory Rate 18 15 Blood Pressure 106/57 L Pulse Oximetry 94 Oxygen Delivery 01/20/25 17:26 01/20/25 19:58 01/20/25 20:00 Temperature 97.1 F L Pulse Rate 80 Respiratory Rate 20 Blood Pressure 98/58 L 133/58 L Pulse Oximetry 97 Oxygen Delivery Room Air 01/20/25 21:31 01/20/25 21:32 01/20/25 21:38 Temperature Pulse Rate 81 82 Respiratory Rate 16 16 Blood Pressure Pulse Oximetry 96 Oxygen Delivery Room Air 01/20/25 21:57 01/21/25 02:54 01/21/25 03:01 Temperature Pulse Rate 81 77 78 Respiratory Rate 16 16 Blood Pressure Pulse Oximetry Oxygen Delivery 01/21/25 05:58 01/21/25 08:10 01/21/25 08:36 Temperature 98.0 F 97.9 F Pulse Rate 84 80 82 Respiratory Rate 20 16 Blood Pressure 155/70 H 94/48 L 94/53 L Pulse Oximetry 94 93 Oxygen Delivery 01/21/25 08:45 01/21/25 09:00 01/21/25 09:15 Temperature Pulse Rate 78 78 79 Respiratory Rate Blood Pressure 90/48 L 94/50 L 86/42 L Pulse Oximetry Oxygen Delivery 01/21/25 09:30 01/21/25 09:45 01/21/25 10:00 Temperature Pulse Rate 79 79 70 Respiratory Rate Blood Pressure 95/50 L 97/44 L 112/56 L Pulse Oximetry Oxygen Delivery 01/21/25 10:15 01/21/25 10:30 01/21/25 10:45 Temperature Pulse Rate 78 80 81 Respiratory Rate Blood Pressure 109/55 L 123/64 120/62 Pulse Oximetry Oxygen Delivery Intake/Output Intake/Output: Intake & Output 01/18/25 01/19/25 01/20/25 01/21/25 23:59 23:59 23:59 23:59 Intake Total 452 649 1429 320 Output Total 1200 0 Balance 960 -220 1130 320 Meds/Results Medications: Active Medications Generic Name Dose Route Start Last Admin Trade Name Freq PRN Reason Stop Dose Admin Acetaminophen 650 mg 01/12/25 17:13 Acetaminophen 325 Mg Tablet PO Q4H PRN Mild Pain (1-3) or Fever Hydrocodone Bitart/Acetaminophen 1 tab 01/12/25 14:26 01/20/25 12:33 Hydrocodone/Acetaminophen (*Crx) 5-325 Mg Tablet PO 1 tab Q4H PRN Administration Pain Rated 4-6 Albuterol/Ipratropium 3 ml 01/12/25 20:00 01/21/25 02:53 Ipratropium 0.5 Mg/Albuterol Sulfate 2.5 Mg Ampul.Neb 3 Ml INHALATION 3 ml Q6HRT MADIE Administration Allopurinol 100 mg 01/13/25 09:00 01/20/25 09:33 Allopurinol 100 Mg Tablet PO 100 mg DAILY MADIE Administration Atorvastatin Calcium 80 mg 01/12/25 21:50 01/20/25 21:57 Atorvastatin 40 Mg Tablet PO 80 mg HS MADIE Administration Calcium Acetate 667 mg 01/13/25 08:00 01/20/25 17:22 Calcium Acetate 667 Mg Tablet PO 667 mg TIDWM MADIE Administration Carvedilol 25 mg 01/12/25 21:00 01/20/25 21:57 Carvedilol 25 Mg Tablet PO 25 mg Q12H MADIE Administration Clopidogrel Bisulfate 75 mg 01/13/25 09:00 01/20/25 09:33 Clopidogrel Bisulfate 75 Mg Tablet PO 75 mg DAILY MADIE Administration Dextrose 12.5 gm 01/12/25 17:13 Dextrose 50% 25 Gm/50 Ml Syringe IV PUSH PRN PRN Hypoglycemia Protocol Docusate Sodium 100 mg 01/12/25 17:13 Docusate Sodium 100 Mg Capsule PO BID PRN Constipation Ezetimibe 10 mg 01/13/25 09:00 01/20/25 09:34 Ezetimibe 10 Mg Tablet PO 10 mg DAILY MADIE Administration Furosemide 80 mg 01/13/25 09:00 01/20/25 09:33 Furosemide 80 Mg Tablet PO 80 mg QAM MADIE Administration Gabapentin 100 mg 01/13/25 09:00 01/20/25 09:33 Gabapentin 100 Mg Capsule PO 100 mg DAILY MADIE Administration Glucagon 1 mg 01/12/25 17:13 Glucagon For Inj 1 Mg Vial IM PRN PRN Hypoglycemia Protocol Glucose 15 gm 01/12/25 17:13 Glucose Oral Gel 15 Gm Of Glucse In 37.5 Gm Tube PO PRN PRN Hypoglycemia Protocol Dextrose 1,000 mls @ 100 mls/hr 01/12/25 17:13 Dextrose 5% 1,000 Ml IVPB PRN PRN Hypoglycemia Protocol Albumin Human 50 mls @ 999 mls/hr 01/20/25 21:42 01/21/25 09:34 Albutein IVPB 01/21/25 21:41 999 mls/hr Q10M PRN Administration HYPOTENSION Albumin Human 50 mls @ 999 mls/hr 01/22/25 05:00 Albutein IVPB Q10M PRN HYPOTENSION Insulin Aspart 2 - 5 units 01/13/25 08:00 01/21/25 09:35 Insulin Aspart (*Bkc) 100 Units/Ml SUB-Q Not Given TIDWM [facility] Protocol Insulin Aspart 1 - 2 units 01/12/25 21:00 01/20/25 21:56 Insulin Aspart (*Bkc) 100 Units/Ml SUB-Q Not Given HS [facility] Protocol Insulin Glargine 25 units 01/12/25 21:50 01/20/25 21:57 Insulin Glargine (*Bkc) 100 Units/Ml SUB-Q 25 units HS MADIE Administration Irbesartan 150 mg 01/13/25 09:00 01/14/25 12:32 Irbesartan 150 Mg Tablet PO 150 mg DAILY MADIE Administration Isosorbide Dinitrate 5 mg 01/12/25 21:50 01/20/25 17:24 Isosorbide Dinitrate 5 Mg Tablet PO Not Given BID MADIE Lidocaine/Prilocaine 1 each 01/13/25 15:43 01/21/25 07:58 Lidocaine/Prilocaine Cream 2.5-2.5% Tube TOPICAL 1 each WITH DIALYSIS PRN Administration Pain Methocarbamol 500 mg 01/12/25 21:43 Methocarbamol 500 Mg Tablet PO QID PRN Muscle spasms Morphine Sulfate 2 mg 01/12/25 14:26 Morphine Sulfate (*Crx) 2 Mg/Ml Inj IV PUSH Q2H PRN Pain Rated 7-10 Nitroglycerin 0.4 mg 01/12/25 21:38 Nitroglycerin Sl 0.4 Mg Tablet SUBLINGUAL Q5MIN PRN chest pain Pantoprazole Sodium 40 mg 01/13/25 09:00 01/20/25 09:33 Pantoprazole 40 Mg Tablet PO 40 mg QAM MADIE Administration Polyethylene Glycol 17 gm 01/20/25 05:03 01/20/25 22:01 Polyethylene Glycol 3350 17 Gm Powd.Pack PO 17 gm QAM PRN Administration Constipation Prednisolone Acetate 1 drop 01/12/25 21:40 01/20/25 21:58 Prednisolone Acetate 1% Ophth 5 Ml EACH EYE 1 drop Q12HR MADIE Administration Promethazine HCl 12.5 mg 01/12/25 14:26 01/20/25 06:25 Promethazine Hcl 25 Mg/Ml Ampul IV PUSH 12.5 mg Q6H PRN Administration Nausea Vitamin D 125 mcg 01/13/25 09:00 01/20/25 09:33 Cholecalciferol (Vitamin D3) 125 Mcg (5,000 Units) Tablet PO 125 mcg DAILY MADIE Administration Radiology Results: ITS Impressions Chest X-Ray 01/20/25 14:08 IMPRESSION: 1. Stable appearance of small lung volumes and bibasilar opacities, left greater than right which could represent atelectasis or pneumonia. Labs Labs: Laboratory Results - last 24 hr 01/20/25 01/20/25 01/20/25 11:41 16:56 19:57 WBC RBC Hgb Hct MCV MCH MCHC RDW Plt Count MPV Immature Gran % (Auto) Neut % (Auto) Lymph % (Auto) [place] % (Auto) Eos % (Auto) Baso % (Auto) Lymph # (Auto) [place] # (Auto) Eos # (Auto) Baso # (Auto) Abs Immat Gran (auto) Absolute Neuts (auto) Absolute Nucleated RBC Nucleated RBC % Sodium Potassium Chloride Carbon Dioxide Anion Gap BUN Creatinine Estim Creat Clear Calc Estimated GFR Glucose POC Capillary Glucose 106 H 172 H 197 H Calcium Phosphorus Total Bilirubin AST ALT Alkaline Phosphatase Total Protein Albumin 01/21/25 01/21/25 04:57 07:39 WBC 6.5 RBC 2.72 L Hgb 9.0 L Hct 27.9 L MCV 102.6 H MCH 33.1 MCHC 32.3 RDW 14.6 H Plt Count 148 L MPV 9.5 Immature Gran % (Auto) 1.2 H Neut % (Auto) 48.8 Lymph % (Auto) 36.6 [place] % (Auto) 13.2 H Eos % (Auto) 0.0 Baso % (Auto) 0.2 Lymph # (Auto) 2.36 [place] # (Auto) 0.9 H Eos # (Auto) 0.0 Baso # (Auto) 0.0 Abs Immat Gran (auto) 0.08 H Absolute Neuts (auto) 3.2 Absolute Nucleated RBC 0.020 H Nucleated RBC % 0.3 H Sodium 130 L Potassium 3.4 Chloride 96 L Carbon Dioxide 23 Anion Gap 11 BUN 42 H D Creatinine 7.11 H Estim Creat Clear Calc 9 Estimated GFR 8 L Glucose 84 POC Capillary Glucose 75 Calcium 8.5 Phosphorus 5.4 H Total Bilirubin 1.0 AST 28 ALT 20 Alkaline Phosphatase 73 Total Protein 6.4 Albumin 3.4 L
[2025-01-21] MEDS: CALCIUM ACETATE 667 MG TABLET PO ×2 (14:04→17:23)
[2025-01-21] MEDS: GABAPENTIN 100 MG CAPSULE PO (14:04)
[2025-01-21] MEDS: ISOSORBIDE DINITRATE 5 MG TABLET PO ×2 (14:05→17:23)
[2025-01-21] MEDS: EZETIMIBE 10 MG TABLET PO (14:05)
[2025-01-21] MEDS: CLOPIDOGREL BISULFATE 75 MG TABLET PO (14:05)
[2025-01-21] MEDS: PANTOPRAZOLE 40 MG TABLET PO (14:05)
[2025-01-21] MEDS: FUROSEMIDE 80 MG TABLET PO (14:07)
[2025-01-21] MEDS: HYDROcodone/acetaminophen (*CRX) 5-325 MG TABLET 1 TAB PO (15:35)
[2025-01-21] MEDS: prednisoLONE ACETATE 1% OPHTH 5 ML 1 DROP EACH EYE ×2 (15:36→21:31)
[2025-01-21] MEDS: INSULIN GLARGINE (*BKC) 100 UNITS/ML 25 UNITS SUB-Q (21:15)
[2025-01-21] MEDS: ATORVASTATIN 40 MG TABLET 80 MG PO (21:16)
[2025-01-22] VITALS (14 sets, daily range): BP systolic 93–153; BP diastolic 50–77; PULSE 74–84; RESP 16–20; TEMP 36.4–36.8; O2SAT 93–96
[2025-01-22] MEDS: IPRATROPIUM 0.5 MG/ALBUTEROL SULFATE 2.5 MG AMPUL.NEB 3 ML INHALATION ×4 (01:38→20:04)
[2025-01-22] MEDS: PROMETHAZINE HCL 25 MG/ML AMPUL 12.5 MG IV PUSH (02:01)
[2025-01-22] MEDS: CALCIUM ACETATE 667 MG TABLET PO ×3 (08:37→17:22)
[2025-01-22] MEDS: CLOPIDOGREL BISULFATE 75 MG TABLET PO (08:38)
[2025-01-22] MEDS: CHOLECALCIFEROL (VITAMIN D3) 125 MCG (5,000 UNITS) TABLET PO (08:38)
[2025-01-22] MEDS: ISOSORBIDE DINITRATE 5 MG TABLET PO ×2 (08:38→17:22)
[2025-01-22] MEDS: EZETIMIBE 10 MG TABLET PO (08:38)
[2025-01-22] MEDS: PANTOPRAZOLE 40 MG TABLET PO (08:38)
[2025-01-22] MEDS: prednisoLONE ACETATE 1% OPHTH 5 ML 1 DROP EACH EYE ×2 (08:41→20:15)
--- NOTE | 2025-01-22 09:35 | P.PNNP_ITS ---
Progress Note: A&P Assessment and Plan (1) End stage renal disease: Code(s): N18.6 - End stage renal disease Status: Chronic Assessment and Plan: * HD Was uneventful yesterday. * continue dialysis schedule of T/T/S while hospitalized * Labs look okay * Volume status looks okay * Breathing okay. He is on room air (2) Acute hypoxic respiratory failure: Code(s): J96.01 - Acute respiratory failure with hypoxia Status: Acute Assessment and Plan: * resolved * as noted on presentation * suspect multifactorial etiology: * pneumonia * mild fluid overload * diastolic heart failure * missed HD treatment this week (on 01/10) * COPD * weaned off supplemental oxygen * continue current therapy as outlined (3) Pneumonia: Code(s): J18.9 - Pneumonia, unspecified organism Status: Acute Assessment and Plan: * clinical improvement noted * as suggested by admission imaging: * CXR with bibasilar airspace disease with crowding of the pulmonary vessels due to low lung lines * viral testing for influenza/RSV/COVID negative * follow culture data - negative to date * Finished course of antibiotics (4) Chronic diastolic heart failure: Code(s): I50.32 - Chronic diastolic (congestive) heart failure Status: Acute Assessment and Plan: * first noted in 2020 * compensated with fluid removal with dialysis * mild fluid overload/exacerbation due to missed treatment (on 01/10) * seems better compensated now (5) Anemia: Qualifiers: Anemia type: unspecified type Qualified Code(s): D64.9 - Anemia, unspecified Code(s): D64.9 - Anemia, unspecified Status: Chronic Assessment and Plan: * due to ESRD * Epogen with HD * Hemoglobin almost target at 9.9 * check again tomorrow (6) Hypertension: Qualifiers: Hypertension type: primary hypertension Qualified Code(s): I10 - Essential (primary) hypertension Code(s): I10 - Essential (primary) hypertension Status: Chronic Assessment and Plan: * Blood pressure 90s-150s today. * follow trend of hemodynamics (7) Chronic obstructive pulmonary disease: Qualifiers: COPD type: emphysema Emphysema type: unspecified Qualified Code(s): J43.9 - Emphysema, unspecified Code(s): J44.9 - Chronic obstructive pulmonary disease, unspecified Status: Chronic Assessment and Plan: * no evidence of acute exacerbation * maybe partly played a role with #2 (8) Insulin dependent type 2 diabetes mellitus: Code(s): E11.9 - Type 2 diabetes mellitus without complications; Z79.4 - penitentiary (current) use of insulin Status: Acute Assessment and Plan: * follow accu-cheks * glycemic control per hospitalist Subjective Date/time seen: 01/22/25 09:35 Interval history: patient is feeling okay. Eager for discharge, but discharge plans are still pending dialysis yesterday went pretty well. We took a little extra fluid off in the patient did not have any problems with low blood pressure cramping or dizziness. Exam Narrative: General: elderly but WD/WN male in NAD Heart: normal S1 and S2; no rub or gallop Lungs: clear bilaterally Abdomen: soft, nontender, nondistended, positive bowel sounds Extremities: no cyanosis or clubbing; no edema; s/p right AKA Skin: No rash or subcu nodules Objective Data Vital Signs Vital Signs: Vital Signs - 24 hr 01/21/25 09:45 01/21/25 10:00 01/21/25 10:15 Temperature Pulse Rate 79 70 78 Respiratory Rate Blood Pressure 97/44 L 112/56 L 109/55 L Pulse Oximetry Oxygen Delivery 01/21/25 10:30 01/21/25 10:45 01/21/25 11:00 Temperature Pulse Rate 80 81 80 Respiratory Rate Blood Pressure 123/64 120/62 129/68 Pulse Oximetry Oxygen Delivery 01/21/25 11:15 01/21/25 11:30 01/21/25 11:45 Temperature Pulse Rate 81 80 80 Respiratory Rate Blood Pressure 145/73 H 132/72 124/61 Pulse Oximetry Oxygen Delivery 01/21/25 12:00 01/21/25 12:11 01/21/25 12:15 Temperature 98.2 F Pulse Rate 79 78 81 Respiratory Rate 18 Blood Pressure 106/58 L 96/48 L 142/71 H Pulse Oximetry 97 Oxygen Delivery 01/21/25 14:00 01/21/25 14:05 01/21/25 15:52 Temperature 97.7 F Pulse Rate 90 88 80 Respiratory Rate 16 16 Blood Pressure 107/62 Pulse Oximetry 93 Oxygen Delivery 01/21/25 16:00 01/21/25 20:00 01/21/25 20:48 Temperature Pulse Rate 84 83 Respiratory Rate 16 16 Blood Pressure Pulse Oximetry Oxygen Delivery Room Air 01/21/25 20:50 01/21/25 20:56 01/21/25 20:56 Temperature 97.5 F L Pulse Rate 84 83 Respiratory Rate 18 16 Blood Pressure 116/55 L Pulse Oximetry 95 93 Oxygen Delivery Room Air 01/21/25 21:15 01/22/25 01:38 01/22/25 01:43 Temperature Pulse Rate 84 83 83 Respiratory Rate 16 16 Blood Pressure Pulse Oximetry Oxygen Delivery 01/22/25 05:53 01/22/25 08:30 01/22/25 08:30 Temperature 97.8 F Pulse Rate 82 81 81 Respiratory Rate 18 20 20 Blood Pressure 153/77 H Pulse Oximetry 93 93 Oxygen Delivery Room Air 01/22/25 08:37 01/22/25 08:56 Temperature Pulse Rate 76 Respiratory Rate 20 Blood Pressure 93/50 L Pulse Oximetry Oxygen Delivery Intake/Output Intake/Output: Intake & Output 01/19/25 01/20/25 01/21/25 01/22/25 23:59 23:59 23:59 23:59 Intake Total 980 1130 800 540 Output Total 1200 2400 100 Balance -220 1130 -1600 440 Meds/Results Medications: Active Medications Generic Name Dose Route Start Last Admin Trade Name Freq PRN Reason Stop Dose Admin Acetaminophen 650 mg 01/12/25 17:13 Acetaminophen 325 Mg Tablet PO Q4H PRN Mild Pain (1-3) or Fever Hydrocodone Bitart/Acetaminophen 1 tab 01/12/25 14:26 01/21/25 15:35 Hydrocodone/Acetaminophen (*Crx) 5-325 Mg Tablet PO 1 tab Q4H PRN Administration Pain Rated 4-6 Albuterol/Ipratropium 3 ml 01/12/25 20:00 01/22/25 08:30 Ipratropium 0.5 Mg/Albuterol Sulfate 2.5 Mg Ampul.Neb 3 Ml INHALATION 3 ml Q6HRT MADIE Administration Allopurinol 100 mg 01/13/25 09:00 01/22/25 08:37 Allopurinol 100 Mg Tablet PO 100 mg DAILY MADIE Administration Atorvastatin Calcium 80 mg 01/12/25 21:50 01/21/25 21:16 Atorvastatin 40 Mg Tablet PO 80 mg HS MADIE Administration Calcium Acetate 667 mg 01/13/25 08:00 01/22/25 08:37 Calcium Acetate 667 Mg Tablet PO 667 mg TIDWM MADIE Administration Carvedilol 25 mg 01/12/25 21:00 01/22/25 08:56 Carvedilol 25 Mg Tablet PO Not Given Q12H MADIE Clopidogrel Bisulfate 75 mg 01/13/25 09:00 01/22/25 08:38 Clopidogrel Bisulfate 75 Mg Tablet PO 75 mg DAILY MADIE Administration Dextrose 12.5 gm 01/12/25 17:13 Dextrose 50% 25 Gm/50 Ml Syringe IV PUSH PRN PRN Hypoglycemia Protocol Docusate Sodium 100 mg 01/12/25 17:13 Docusate Sodium 100 Mg Capsule PO BID PRN Constipation Ezetimibe 10 mg 01/13/25 09:00 01/22/25 08:38 Ezetimibe 10 Mg Tablet PO 10 mg DAILY MADIE Administration Furosemide 80 mg 01/13/25 09:00 01/21/25 14:07 Furosemide 80 Mg Tablet PO 80 mg QAM MADIE Administration Gabapentin 100 mg 01/13/25 09:00 01/22/25 08:41 Gabapentin 100 Mg Capsule PO Not Given DAILY MADIE Glucagon 1 mg 01/12/25 17:13 Glucagon For Inj 1 Mg Vial IM PRN PRN Hypoglycemia Protocol Glucose 15 gm 01/12/25 17:13 Glucose Oral Gel 15 Gm Of Glucse In 37.5 Gm Tube PO PRN PRN Hypoglycemia Protocol Dextrose 1,000 mls @ 100 mls/hr 01/12/25 17:13 Dextrose 5% 1,000 Ml IVPB PRN PRN Hypoglycemia Protocol Albumin Human 50 mls @ 999 mls/hr 01/22/25 05:00 Albutein IVPB Q10M PRN HYPOTENSION Insulin Aspart 2 - 5 units 01/13/25 08:00 01/22/25 08:41 Insulin Aspart (*Bkc) 100 Units/Ml SUB-Q Not Given TIDWM MADIE Protocol Insulin Aspart 1 - 2 units 01/12/25 21:00 01/21/25 21:30 Insulin Aspart (*Bkc) 100 Units/Ml SUB-Q Not Given HS MADIE Protocol Insulin Glargine 25 units 01/12/25 21:50 01/21/25 21:15 Insulin Glargine (*Bkc) 100 Units/Ml SUB-Q 25 units HS MADIE Administration Irbesartan 150 mg 01/13/25 09:00 01/14/25 12:32 Irbesartan 150 Mg Tablet PO 150 mg DAILY MADIE Administration Isosorbide Dinitrate 5 mg 01/12/25 21:50 01/22/25 08:38 Isosorbide Dinitrate 5 Mg Tablet PO 5 mg BID MADIE Administration Lidocaine/Prilocaine 1 each 01/13/25 15:43 01/21/25 07:58 Lidocaine/Prilocaine Cream 2.5-2.5% Tube TOPICAL 1 each WITH DIALYSIS PRN Administration Pain Methocarbamol 500 mg 01/12/25 21:43 Methocarbamol 500 Mg Tablet PO QID PRN Muscle spasms Miscellaneous Information 1 each 01/22/25 00:01 Please Renew [place] And Morphine Per [employer] Procedure, It Will Discontinue If Not Renewed XX 02/21/25 00:00 CLARIFY MADIE Morphine Sulfate 2 mg 01/12/25 14:26 Morphine Sulfate (*Crx) 2 Mg/Ml Inj IV PUSH Q2H PRN Pain Rated 7-10 Nitroglycerin 0.4 mg 01/12/25 21:38 Nitroglycerin Sl 0.4 Mg Tablet SUBLINGUAL Q5MIN PRN chest pain Pantoprazole Sodium 40 mg 01/13/25 09:00 01/22/25 08:38 Pantoprazole 40 Mg Tablet PO 40 mg QAM MADIE Administration Polyethylene Glycol 17 gm 01/20/25 05:03 01/20/25 22:01 Polyethylene Glycol 3350 17 Gm Powd.Pack PO 17 gm QAM PRN Administration Constipation Prednisolone Acetate 1 drop 01/12/25 21:40 01/22/25 08:41 Prednisolone Acetate 1% Ophth 5 Ml EACH EYE 1 drop Q12HR MADIE Administration Promethazine HCl 12.5 mg 01/12/25 14:26 01/22/25 02:01 Promethazine Hcl 25 Mg/Ml Ampul IV PUSH 12.5 mg Q6H PRN Administration Nausea Vitamin D 125 mcg 01/13/25 09:00 01/22/25 08:38 Cholecalciferol (Vitamin D3) 125 Mcg (5,000 Units) Tablet PO 125 mcg DAILY MADIE Administration Radiology Results: ITS Impressions Chest X-Ray 01/20/25 14:08 IMPRESSION: 1. Stable appearance of small lung volumes and bibasilar opacities, left greater than right which could represent atelectasis or pneumonia. Labs Labs: Laboratory Results - last 24 hr 01/21/25 01/21/25 01/21/25 12:53 16:39 20:15 POC Capillary Glucose 85 129 H 150 H 01/22/25 01/22/25 07:37 08:45 POC Capillary Glucose 66 92
[2025-01-22] MEDS: HYDROcodone/acetaminophen (*CRX) 5-325 MG TABLET 1 TAB PO (10:45)
--- NOTE | 2025-01-22 11:29 | P.PNIM_ITS ---
Progress Note: A&P Assessment and Plan (1) ESRD needing dialysis: Code(s): N18.6 - End stage renal disease; Z99.2 - Dependence on renal dialysis Status: Acute Assessment and Plan: * Fluid overload on exam upon admission * Dialysis T/T/S * Nephrology consulted, appreciate further recommendations * HD on 01/12 - will likely go for another session today 01/13 * Continue phosphate binders * Monitor daily labs * Nephrology consult - appreciate further recommendations * Kidney function near baseline * Unchanged, stable - continue Dialysis while admitted continue HD while hospitalized placement pending (2) Pneumonia: Qualifiers: Pneumonia type: due to unspecified organism Laterality: unspecified laterality Lung location: unspecified part of lung Qualified Code(s): J18.9 - Pneumonia, unspecified organism Code(s): J18.9 - Pneumonia, unspecified organism Status: Acute Assessment and Plan: * CXR: Bibasilar airspace disease with crowding of the pulmonary vessels due to low lung lines. Considerations include edema, atelectasis and/or pneumonia. * started on CAP tx: azithromycin & ceftriaxone * Viral PCR: negative for Flu/COVID/RSV * Consider ordering legionella, mycoplasma and pneumococcal * no supplemental O2 requirement * supportive treatment * Monitor vital signs, I&Os, neuro status and patient is a fall risk * Follow WBC, serum electrolytes, temperature curves and cultures * Gentle IV fluid resuscitation * Guaifenesin, DuoNebs * Remains afebrile without leukocytosis or productive lung sounds, denies cough * Continued Augmentin, azithromycin through 01/18 (3) Diastolic congestive heart failure: Qualifiers: Heart failure chronicity: unspecified Qualified Code(s): I50.30 - Unspecified diastolic (congestive) heart failure Code(s): I50.30 - Unspecified diastolic (congestive) heart failure Status: Acute Assessment and Plan: * HD Thursday * Pulmonary edema on x-ray * Dialysis * Continue p.o. Lasix (4) Type 2 diabetes mellitus: Qualifiers: Diabetes mellitus [facility] insulin use: with extermination supervisor use Diabetes mellitus complication status: with hyperglycemia Qualified Code(s): E11.65 - Type 2 diabetes mellitus with hyperglycemia; Z79.4 - retirement (current) use of insulin Code(s): E11.9 - Type 2 diabetes mellitus without complications Status: Acute Assessment and Plan: * Diabetic renal diet * Accu-Cheks a.c. HS * SSI and Lantus * Continue Zetia (5) Coronary artery disease: Qualifiers: Coronary Disease-Associated Artery/Lesion type: [place] artery [place] vs. transplanted heart: [place] heart Associated angina: without angina Q ualified Code(s): I25.10 - Atherosclerotic heart disease of [place] coronary artery without angina pectoris Code(s): I25.10 - Atherosclerotic heart disease of [place] coronary artery without angina pectoris Status: Chronic Assessment and Plan: * Continue Lipitor, Zetia, isosorbide, nitro, and carvedilol (6) Weakness: Code(s): R53.1 - Weakness Status: Acute Assessment and Plan: * Multifactorial * Likely 2/2 to underlying infection, ESRD/missed dialysis * PT/OT evals - recommend further rehab (SNF, [facility]) * Working with [facility] regarding placement - pt needs dialysis T/T/S, facility will need to work with this schedule * Still waiting on placement - accepted at [facility] but awaiting inurance authorization Subjective Date/time seen: 01/22/25 11:29 Interval history: Tolerated breakfast. Only complaint is left leg pain. Resolved with [place]. No chest pain or shortness of breath. Tolerated dialysis well but blood pressure a little low this morning on day after dialysis so his morning antihypertensives were held. Not feeling weak or dizzy. Review of Systems Review of Systems: All systems reviewed & are unremarkable except as noted in HPI and below Exam Narrative: HEENT: PERRL, sclerae nonicteric, pharyngeal mucosa pink and intact NECK: No JVD, adenopathy, or thyromegaly CHEST: Clear to auscultation. Normal effort. HEART: NL S1/S2, regular, soft PATY ABDOMEN: BS+, soft, nontender, no mass, no bruits EXTREMITIES: No cyanosis, edema, or clubbing NEUROLOGIC: CN intact and symmetric to inspection. MUSCULOSKELETAL: RLE amputation PSYCH: Alert. Oriented to person, place, and time. Objective Data Vital Signs Vital Signs: Vital Signs - 24 hr 01/21/25 11:30 01/21/25 11:45 01/21/25 12:00 Temperature Pulse Rate 80 80 79 Respiratory Rate Blood Pressure 132/72 124/61 106/58 L Pulse Oximetry Oxygen Delivery 01/21/25 12:11 01/21/25 12:15 01/21/25 14:00 Temperature 98.2 F 97.7 F Pulse Rate 78 81 90 Respiratory Rate 18 16 Blood Pressure 96/48 L 142/71 H 107/62 Pulse Oximetry 97 93 Oxygen Delivery 01/21/25 14:05 01/21/25 15:52 01/21/25 16:00 Temperature Pulse Rate 88 80 84 Respiratory Rate 16 16 Blood Pressure Pulse Oximetry Oxygen Delivery 01/21/25 20:00 01/21/25 20:48 01/21/25 20:50 Temperature 97.5 F L Pulse Rate 83 84 Respiratory Rate 16 18 Blood Pressure 116/55 L Pulse Oximetry 95 Oxygen Delivery Room Air 01/21/25 20:56 01/21/25 20:56 01/21/25 21:15 Temperature Pulse Rate 83 84 Respiratory Rate 16 Blood Pressure Pulse Oximetry 93 Oxygen Delivery Room Air 01/22/25 01:38 01/22/25 01:43 01/22/25 05:53 Temperature 97.8 F Pulse Rate 83 83 82 Respiratory Rate 16 16 18 Blood Pressure 153/77 H Pulse Oximetry 93 Oxygen Delivery 01/22/25 08:30 01/22/25 08:30 01/22/25 08:37 Temperature Pulse Rate 81 81 76 Respiratory Rate 20 20 20 Blood Pressure Pulse Oximetry 93 Oxygen Delivery Room Air 01/22/25 08:56 Temperature Pulse Rate Respiratory Rate Blood Pressure 93/50 L Pulse Oximetry Oxygen Delivery Intake/Output Intake/Output: Intake & Output 01/19/25 01/20/25 01/21/25 01/22/25 23:59 23:59 23:59 23:59 Intake Total 980 1130 800 540 Output Total 1200 2400 100 Balance -220 1130 -1600 440 Meds/Results Medications: Active Medications Generic Name Dose Route Start Last Admin Trade Name Freq PRN Reason Stop Dose Admin Acetaminophen 650 mg 01/12/25 17:13 Acetaminophen 325 Mg Tablet PO Q4H PRN Mild Pain (1-3) or Fever Hydrocodone Bitart/Acetaminophen 1 tab 01/22/25 10:18 01/22/25 10:45 Hydrocodone/Acetaminophen (*Crx) 5-325 Mg Tablet PO 1 tab Q6H PRN Administration Pain Rated 4-6 Albuterol/Ipratropium 3 ml 01/12/25 20:00 01/22/25 08:30 Ipratropium 0.5 Mg/Albuterol Sulfate 2.5 Mg Ampul.Neb 3 Ml INHALATION 3 ml Q6HRT MADIE Administration Allopurinol 100 mg 01/13/25 09:00 01/22/25 08:37 Allopurinol 100 Mg Tablet PO 100 mg DAILY MADIE Administration Atorvastatin Calcium 80 mg 01/12/25 21:50 01/21/25 21:16 Atorvastatin 40 Mg Tablet PO 80 mg HS MADIE Administration Calcium Acetate 667 mg 01/13/25 08:00 01/22/25 08:37 Calcium Acetate 667 Mg Tablet PO 667 mg TIDWM MADIE Administration Carvedilol 25 mg 01/12/25 21:00 01/22/25 08:56 Carvedilol 25 Mg Tablet PO Not Given Q12H [facility] Clopidogrel Bisulfate 75 mg 01/13/25 09:00 01/22/25 08:38 Clopidogrel Bisulfate 75 Mg Tablet PO 75 mg DAILY MADIE Administration Dextrose 12.5 gm 01/12/25 17:13 Dextrose 50% 25 Gm/50 Ml Syringe IV PUSH PRN PRN Hypoglycemia Protocol Docusate Sodium 100 mg 01/12/25 17:13 Docusate Sodium 100 Mg Capsule PO BID PRN Constipation Ezetimibe 10 mg 01/13/25 09:00 01/22/25 08:38 Ezetimibe 10 Mg Tablet PO 10 mg DAILY MADIE Administration Furosemide 80 mg 01/13/25 09:00 01/22/25 10:26 Furosemide 80 Mg Tablet PO Not Given QAM MADIE Gabapentin 100 mg 01/13/25 09:00 01/22/25 08:41 Gabapentin 100 Mg Capsule PO Not Given DAILY MADIE Glucagon 1 mg 01/12/25 17:13 Glucagon For Inj 1 Mg Vial IM PRN PRN Hypoglycemia Protocol Glucose 15 gm 01/12/25 17:13 Glucose Oral Gel 15 Gm Of Glucse In 37.5 Gm Tube PO PRN PRN Hypoglycemia Protocol Dextrose 1,000 mls @ 100 mls/hr 01/12/25 17:13 Dextrose 5% 1,000 Ml IVPB PRN PRN Hypoglycemia Protocol Albumin Human 50 mls @ 999 mls/hr 01/22/25 05:00 Albutein IVPB Q10M PRN HYPOTENSION Insulin Aspart 2 - 5 units 01/13/25 08:00 01/22/25 08:41 Insulin Aspart (*Bkc) 100 Units/Ml SUB-Q Not Given TIDWM [facility] Protocol Insulin Aspart 1 - 2 units 01/12/25 21:00 01/21/25 21:30 Insulin Aspart (*Bkc) 100 Units/Ml SUB-Q Not Given HS [facility] Protocol Insulin Glargine 25 units 01/12/25 21:50 01/21/25 21:15 Insulin Glargine (*Bkc) 100 Units/Ml SUB-Q 25 units HS [facility] Administration Irbesartan 150 mg 01/13/25 09:00 01/14/25 12:32 Irbesartan 150 Mg Tablet PO 150 mg DAILY MADIE Administration Isosorbide Dinitrate 5 mg 01/12/25 21:50 01/22/25 08:38 Isosorbide Dinitrate 5 Mg Tablet PO 5 mg BID [facility] Administration Lidocaine/Prilocaine 1 each 01/13/25 15:43 01/21/25 07:58 Lidocaine/Prilocaine Cream 2.5-2.5% Tube TOPICAL 1 each WITH DIALYSIS PRN Administration Pain Methocarbamol 500 mg 01/12/25 21:43 Methocarbamol 500 Mg Tablet PO QID PRN Muscle spasms Morphine Sulfate 2 mg 01/12/25 14:26 Morphine Sulfate (*Crx) 2 Mg/Ml Inj IV PUSH Q2H PRN Pain Rated 7-10 Nitroglycerin 0.4 mg 01/12/25 21:38 Nitroglycerin Sl 0.4 Mg Tablet SUBLINGUAL Q5MIN PRN chest pain Pantoprazole Sodium 40 mg 01/13/25 09:00 01/22/25 08:38 Pantoprazole 40 Mg Tablet PO 40 mg QAM MADIE Administration Polyethylene Glycol 17 gm 01/20/25 05:03 01/20/25 22:01 Polyethylene Glycol 3350 17 Gm Powd.Pack PO 17 gm QAM PRN Administration Constipation Prednisolone Acetate 1 drop 01/12/25 21:40 01/22/25 08:41 Prednisolone Acetate 1% Ophth 5 Ml EACH EYE 1 drop Q12HR MADIE Administration Promethazine HCl 12.5 mg 01/12/25 14:26 01/22/25 02:01 Promethazine Hcl 25 Mg/Ml Ampul IV PUSH 12.5 mg Q6H PRN Administration Nausea Vitamin D 125 mcg 01/13/25 09:00 01/22/25 08:38 Cholecalciferol (Vitamin D3) 125 Mcg (5,000 Units) Tablet PO 125 mcg DAILY MAIDE Administration Radiology Results: ITS Impressions Chest X-Ray 01/20/25 14:08 IMPRESSION: 1. Stable appearance of small lung volumes and bibasilar opacities, left greater than right which could represent atelectasis or pneumonia. Labs Labs: Laboratory Results - last 24 hr 01/21/25 01/21/25 01/21/25 12:53 16:39 20:15 POC Capillary Glucose 85 129 H 150 H 01/22/25 01/22/25 07:37 08:45 POC Capillary Glucose 66 92
[2025-01-22] MEDS: ATORVASTATIN 40 MG TABLET 80 MG PO (20:10)
[2025-01-22] MEDS: INSULIN GLARGINE (*BKC) 100 UNITS/ML 25 UNITS SUB-Q (20:14)
[2025-01-22] MEDS: DOCUSATE SODIUM 100 MG CAPSULE PO (23:46)
[2025-01-23] VITALS (14 sets, daily range): BP systolic 132–157; BP diastolic 67–73; PULSE 79–89; RESP 14–20; TEMP 36.1–36.7; O2SAT 95–99
[2025-01-23] MEDS: IPRATROPIUM 0.5 MG/ALBUTEROL SULFATE 2.5 MG AMPUL.NEB 3 ML INHALATION ×4 (01:43→21:10)
[2025-01-23] MEDS: CALCIUM ACETATE 667 MG TABLET PO ×3 (08:08→17:21)
[2025-01-23] MEDS: GABAPENTIN 100 MG CAPSULE PO (08:08)
[2025-01-23] MEDS: EZETIMIBE 10 MG TABLET PO (08:08)
[2025-01-23] MEDS: FUROSEMIDE 80 MG TABLET PO (08:08)
[2025-01-23] MEDS: PANTOPRAZOLE 40 MG TABLET PO (08:08)
[2025-01-23] MEDS: CLOPIDOGREL BISULFATE 75 MG TABLET PO (08:09)
[2025-01-23] MEDS: ISOSORBIDE DINITRATE 5 MG TABLET PO ×2 (08:09→17:21)
[2025-01-23] MEDS: CHOLECALCIFEROL (VITAMIN D3) 125 MCG (5,000 UNITS) TABLET PO (08:09)
[2025-01-23] MEDS: prednisoLONE ACETATE 1% OPHTH 5 ML 1 DROP EACH EYE ×2 (08:10→20:13)
--- NOTE | 2025-01-23 08:49 | P.PNIM_ITS ---
Progress Note: A&P Assessment and Plan (1) ESRD needing dialysis: Code(s): N18.6 - End stage renal disease; Z99.2 - Dependence on renal dialysis Status: Acute Assessment and Plan: * Fluid overload on exam upon admission * Dialysis T/T/S * Nephrology consulted, appreciate further recommendations HD on 01/12. Patient hemodialysis per Nephrology * Continue phosphate binders * Monitor daily labs * Nephrology consult - appreciate further recommendations * Kidney function near baseline * Unchanged, stable - continue Dialysis while admitted Awaiting placement (2) Pneumonia: Qualifiers: Laterality: unspecified laterality Lung location: unspecified part of lung Pneumonia type: due to unspecified organism Qualified Code(s): J18.9 - Pneumonia, unspecified organism Code(s): J18.9 - Pneumonia, unspecified organism Status: Acute Assessment and Plan: * CXR: Bibasilar airspace disease with crowding of the pulmonary vessels due to low lung lines. Considerations include edema, atelectasis and/or pneumonia. * started on CAP tx: azithromycin & ceftriaxone * Viral PCR: negative for Flu/COVID/RSV * Consider ordering legionella, mycoplasma and pneumococcal * no supplemental O2 requirement * supportive treatment * Monitor vital signs, I&Os, neuro status and patient is a fall risk * Follow WBC, serum electrolytes, temperature curves and cultures * Gentle IV fluid resuscitation * Adrianaifenesin DuoNebs * Remains afebrile without leukocytosis or productive lung sounds, denies cough * Continued Augmentin, azithromycin through 01/18 (3) Diastolic congestive heart failure: Qualifiers: Heart failure chronicity: unspecified Qualified Code(s): I50.30 - Unspecified diastolic (congestive) heart failure Code(s): I50.30 - Unspecified diastolic (congestive) heart failure Status: Acute Assessment and Plan: * HD Thursday * Pulmonary edema on x-ray * Dialysis * Continue p.o. Lasix (4) Type 2 diabetes mellitus: Qualifiers: Diabetes mellitus complication status: with hyperglycemia Diabetes mellitus rn long term care insulin use: with longterm use Qualified Code(s): E11.65 - Type 2 diabetes mellitus with hyperglycemia; Z79.4 - MCFP (current) use of insulin Code(s): E11.9 - Type 2 diabetes mellitus without complications Status: Acute Assessment and Plan: * Diabetic renal diet * Accu-Cheks a.c. HS * SSI and Lantus * Continue Zetia (5) Coronary artery disease: Qualifiers: Associated angina: without angina Coronary Disease-Associated Artery/Lesion type: [place] artery [place] vs. transplanted heart: [place] heart Qualified Code(s): I25.10 - Atherosclerotic heart disease of [place] coronary artery without angina pectoris Code(s): I25.10 - Atherosclerotic heart disease of [place] coronary artery without angina pectoris Status: Chronic Assessment and Plan: * Continue Lipitor, Zetia, isosorbide, nitro, and carvedilol (6) Weakness: Code(s): R53.1 - Weakness Status: Acute Assessment and Plan: * Multifactorial * Likely 2/2 to underlying infection, ESRD/missed dialysis * PT/OT evals - recommend further rehab ([facility], [place]) * Working with CC regarding placement - pt needs dialysis T/T/S, facility will need to work with this schedule * Still waiting on placement - accepted at [facility] but awaiting inurance authorization Subjective Date/time seen: 01/23/25 08:49 Interval history: No overnight events. Getting dialysis. Was working with therapy when he felt little dizzy. Blood pressure was stable. Review of Systems Review of Systems: All systems reviewed & are unremarkable except as noted in HPI and below Exam Narrative: HEENT: PERRL, sclerae nonicteric, pharyngeal mucosa pink and intact NECK: No JVD, adenopathy, or thyromegaly CHEST: Clear to auscultation. Normal effort. HEART: NL S1/S2, regular, soft PATY ABDOMEN: BS+, soft, nontender, no mass, no bruits EXTREMITIES: No cyanosis, edema, or clubbing NEUROLOGIC: CN intact and symmetric to inspection. MUSCULOSKELETAL: RLE amputation PSYCH: Alert. Oriented to person, place, and time. Objective Data Vital Signs Vital Signs: Vital Signs - 24 hr 01/22/25 08:56 01/22/25 13:59 01/22/25 14:21 Temperature 98.2 F Pulse Rate 74 78 Respiratory Rate 18 20 Blood Pressure 93/50 L 102/52 L Pulse Oximetry 93 96 Oxygen Delivery Room Air 01/22/25 14:21 01/22/25 14:30 01/22/25 20:04 Temperature Pulse Rate 78 78 84 Respiratory Rate 20 20 16 Blood Pressure Pulse Oximetry Oxygen Delivery 01/22/25 20:06 01/22/25 20:10 01/22/25 20:11 Temperature 97.6 F Pulse Rate 84 84 84 Respiratory Rate 18 16 Blood Pressure 127/64 Pulse Oximetry 94 Oxygen Delivery 01/22/25 20:33 01/23/25 01:44 01/23/25 01:53 Temperature Pulse Rate 84 85 84 Respiratory Rate 16 20 20 Blood Pressure Pulse Oximetry 94 Oxygen Delivery Room Air 01/23/25 05:25 01/23/25 08:08 Temperature 97.7 F Pulse Rate 80 80 Respiratory Rate 18 Blood Pressure 132/67 Pulse Oximetry 95 Oxygen Delivery Intake/Output Intake/Output: Intake & Output 01/20/25 01/21/25 01/22/25 01/23/25 23:59 23:59 23:59 23:59 Intake Total 0678 020 6097 300 Output Total 2400 100 400 Balance 1130 -1600 1310 -100 Meds/Results Medications: Active Medications Generic Name Dose Route Start Last Admin Trade Name Freq PRN Reason Stop Dose Admin Acetaminophen 650 mg 01/12/25 17:13 Acetaminophen 325 Mg Tablet PO Q4H PRN Mild Pain (1-3) or Fever Hydrocodone Bitart/Acetaminophen 1 tab 01/22/25 10:18 01/22/25 10:45 Hydrocodone/Acetaminophen (*Crx) 5-325 Mg Tablet PO 1 tab Q6H PRN Administration Pain Rated 4-6 Albuterol/Ipratropium 3 ml 01/12/25 20:00 01/23/25 01:43 Ipratropium 0.5 Mg/Albuterol Sulfate 2.5 Mg Ampul.Neb 3 Ml INHALATION 3 ml Q6HRT MADIE Administration Allopurinol 100 mg 01/13/25 09:00 01/23/25 08:09 Allopurinol 100 Mg Tablet PO 100 mg DAILY MADIE Administration Atorvastatin Calcium 80 mg 01/12/25 21:50 01/22/25 20:10 Atorvastatin 40 Mg Tablet PO 80 mg HS MADIE Administration Calcium Acetate 667 mg 01/13/25 08:00 01/23/25 08:08 Calcium Acetate 667 Mg Tablet PO 667 mg TIDWM MADIE Administration Carvedilol 25 mg 01/12/25 21:00 01/23/25 08:08 Carvedilol 25 Mg Tablet PO 25 mg Q12H MADIE Administration Clopidogrel Bisulfate 75 mg 01/13/25 09:00 01/23/25 08:09 Clopidogrel Bisulfate 75 Mg Tablet PO 75 mg DAILY MADIE Administration Dextrose 12.5 gm 01/12/25 17:13 Dextrose 50% 25 Gm/50 Ml Syringe IV PUSH PRN PRN Hypoglycemia Protocol Docusate Sodium 100 mg 01/12/25 17:13 01/22/25 23:46 Docusate Sodium 100 Mg Capsule PO 100 mg BID PRN Administration Constipation Ezetimibe 10 mg 01/13/25 09:00 01/23/25 08:08 Ezetimibe 10 Mg Tablet PO 10 mg DAILY MADIE Administration Furosemide 80 mg 01/13/25 09:00 01/23/25 08:08 Furosemide 80 Mg Tablet PO 80 mg QAM MADIE Administration Gabapentin 100 mg 01/13/25 09:00 01/23/25 08:08 Gabapentin 100 Mg Capsule PO 100 mg DAILY MADIE Administration Glucagon 1 mg 01/12/25 17:13 Glucagon For Inj 1 Mg Vial IM PRN PRN Hypoglycemia Protocol Glucose 15 gm 01/12/25 17:13 Glucose Oral Gel 15 Gm Of Glucse In 37.5 Gm Tube PO PRN PRN Hypoglycemia Protocol Dextrose 1,000 mls @ 100 mls/hr 01/12/25 17:13 Dextrose 5% 1,000 Ml IVPB PRN PRN Hypoglycemia Protocol Albumin Human 50 mls @ 999 mls/hr 01/22/25 05:00 Albutein IVPB Q10M PRN HYPOTENSION Insulin Aspart 2 - 5 units 01/13/25 08:00 01/22/25 17:23 Insulin Aspart (*Bkc) 100 Units/Ml SUB-Q Not Given TIDWM MADIE Protocol Insulin Aspart 1 - 2 units 01/12/25 21:00 01/22/25 20:14 Insulin Aspart (*Bkc) 100 Units/Ml SUB-Q Not Given HS MADIE Protocol Insulin Glargine 25 units 01/12/25 21:50 01/22/25 20:14 Insulin Glargine (*Bkc) 100 Units/Ml SUB-Q 25 units HS MADIE Administration Irbesartan 150 mg 01/13/25 09:00 01/14/25 12:32 Irbesartan 150 Mg Tablet PO 150 mg DAILY MADIE Administration Isosorbide Dinitrate 5 mg 01/12/25 21:50 01/23/25 08:09 Isosorbide Dinitrate 5 Mg Tablet PO 5 mg BID MADIE Administration Lidocaine/Prilocaine 1 each 01/13/25 15:43 01/21/25 07:58 Lidocaine/Prilocaine Cream 2.5-2.5% Tube TOPICAL 1 each WITH DIALYSIS PRN Administration Pain Methocarbamol 500 mg 01/12/25 21:43 Methocarbamol 500 Mg Tablet PO QID PRN Muscle spasms Nitroglycerin 0.4 mg 01/12/25 21:38 Nitroglycerin Sl 0.4 Mg Tablet SUBLINGUAL Q5MIN PRN chest pain Pantoprazole Sodium 40 mg 01/13/25 09:00 01/23/25 08:08 Pantoprazole 40 Mg Tablet PO 40 mg QAM MADIE Administration Polyethylene Glycol 17 gm 01/20/25 05:03 01/22/25 17:32 Polyethylene Glycol 3350 17 Gm Powd.Pack PO 17 gm QAM PRN Administration Constipation Prednisolone Acetate 1 drop 01/12/25 21:40 01/23/25 08:10 Prednisolone Acetate 1% Ophth 5 Ml EACH EYE 1 drop Q12HR MADIE Administration Promethazine HCl 12.5 mg 01/12/25 14:26 01/22/25 02:01 Promethazine Hcl 25 Mg/Ml Ampul IV PUSH 12.5 mg Q6H PRN Administration Nausea Vitamin D 125 mcg 01/13/25 09:00 01/23/25 08:09 Cholecalciferol (Vitamin D3) 125 Mcg (5,000 Units) Tablet PO 125 mcg DAILY MADIE Administration Radiology Results: ITS Impressions Chest X-Ray 01/20/25 14:08 IMPRESSION: 1. Stable appearance of small lung volumes and bibasilar opacities, left greater than right which could represent atelectasis or pneumonia. Labs Labs: Laboratory Results - last 24 hr 01/22/25 01/22/25 01/22/25 08:45 11:41 16:35 POC Capillary Glucose 92 174 H 116 H 01/22/25 01/23/25 01/23/25 20:13 01:54 07:55 POC Capillary Glucose 126 H 138 H 118 H
--- NOTE | 2025-01-23 11:53 | P.PNNP_ITS ---
Progress Note: A&P Assessment and Plan (1) End stage renal disease: Code(s): N18.6 - End stage renal disease Status: Chronic Assessment and Plan: * HD tomorrow * continue dialysis schedule of T/T/S while hospitalized * follow electrolytes, volume status, and clearance (2) Acute hypoxic respiratory failure: Code(s): J96.01 - Acute respiratory failure with hypoxia Status: Acute Assessment and Plan: * resolved * as noted on presentation * suspect multifactorial etiology: * pneumonia * mild fluid overload * diastolic heart failure * missed HD treatment this week (on 01/10) * COPD * weaned off supplemental oxygen * continue current therapy as outlined (3) Pneumonia: Code(s): J18.9 - Pneumonia, unspecified organism Status: Acute Assessment and Plan: * clinical improvement noted * as suggested by admission imaging: * CXR with bibasilar airspace disease with crowding of the pulmonary vessels due to low lung lines * viral testing for influenza/RSV/COVID negative * follow culture data - negative to date * on antibiotics (4) Chronic diastolic heart failure: Code(s): I50.32 - Chronic diastolic (congestive) heart failure Status: Acute Assessment and Plan: * first noted in 2020 * compensated with fluid removal with dialysis * mild fluid overload/exacerbation due to missed treatment (on 01/10) * s/p DUF session (on 01/13) with 3L fluid removal * continue supportive therapy (5) Anemia: Qualifiers: Anemia type: unspecified type Qualified Code(s): D64.9 - Anemia, unspecified Code(s): D64.9 - Anemia, unspecified Status: Chronic Assessment and Plan: * due to ESRD * Epogen with HD * follow trend of H/H (6) Hypertension: Qualifiers: Hypertension type: primary hypertension Qualified Code(s): I10 - Essential (primary) hypertension Code(s): I10 - Essential (primary) hypertension Status: Chronic Assessment and Plan: * reasonable control at this time * follow trend of hemodynamics (7) Chronic obstructive pulmonary disease: Qualifiers: COPD type: emphysema Emphysema type: unspecified Qualified Code(s): J43.9 - Emphysema, unspecified Code(s): J44.9 - Chronic obstructive pulmonary disease, unspecified Status: Chronic Assessment and Plan: * no evidence of acute exacerbation * maybe partly played a role with #2 (8) Insulin dependent type 2 diabetes mellitus: Code(s): E11.9 - Type 2 diabetes mellitus without complications; Z79.4 - custodial (current) use of insulin Status: Acute Assessment and Plan: * follow accu-cheks * glycemic control per hospitalist Not opposed to discharge from renal perspective if otherwise medically stable and discharge disposition finalized. Will continue to follow. Subjective Date/time seen: 01/23/25 11:53 Interval history: Follow-up for end stage renal disease on hemodialysis. Chart reviewed since last seen -- no apparent distress noted at the time of my visit; continues to work with therapy as tolerated; no other issues/events overnight or earlier this morning. Exam Narrative: General: elderly but WD/WN male in NAD Heart: normal S1 and S2; no rub Lungs: clear anteriorly Abdomen: soft, nontender, nondistended, positive bowel sounds Extremities: no cyanosis or clubbing; no edema; s/p right AKA Skin: no rash Objective Data Vital Signs Vital Signs: Vital Signs - 24 hr 01/22/25 20:04 01/22/25 20:06 01/22/25 20:10 Temperature 97.6 F Pulse Rate 84 84 84 Respiratory Rate 16 18 16 Blood Pressure 127/64 Pulse Oximetry 94 Oxygen Delivery 01/22/25 20:11 01/22/25 20:33 01/23/25 01:44 Temperature Pulse Rate 84 84 85 Respiratory Rate 16 20 Blood Pressure Pulse Oximetry 94 Oxygen Delivery Room Air 01/23/25 01:53 01/23/25 05:25 01/23/25 08:00 Temperature 97.7 F Pulse Rate 84 80 Respiratory Rate 20 18 Blood Pressure 132/67 Pulse Oximetry 95 Oxygen Delivery Room Air 01/23/25 08:08 01/23/25 09:04 01/23/25 09:06 Temperature Pulse Rate 80 79 79 Respiratory Rate 14 14 Blood Pressure Pulse Oximetry 97 Oxygen Delivery 01/23/25 09:07 01/23/25 14:30 01/23/25 15:26 Temperature 97.0 F L Pulse Rate 80 81 83 Respiratory Rate 14 18 16 Blood Pressure 157/73 H Pulse Oximetry 98 Oxygen Delivery 01/23/25 15:36 Temperature Pulse Rate 86 Respiratory Rate 16 Blood Pressure Pulse Oximetry Oxygen Delivery Intake/Output Intake/Output: Intake & Output 01/20/25 01/21/25 01/22/25 01/23/25 23:59 23:59 23:59 23:59 Intake Total 2698 913 3095 1320 Output Total 2400 100 600 Balance 1130 -1600 1310 720 Meds/Results Medications: Active Medications Generic Name Dose Route Start Last Admin Trade Name Freq PRN Reason Stop Dose Admin Acetaminophen 650 mg 01/12/25 17:13 Acetaminophen 325 Mg Tablet PO Q4H PRN Mild Pain (1-3) or Fever Hydrocodone Bitart/Acetaminophen 1 tab 01/22/25 10:18 01/22/25 10:45 Hydrocodone/Acetaminophen (*Crx) 5-325 Mg Tablet PO 1 tab Q6H PRN Administration Pain Rated 4-6 Albuterol/Ipratropium 3 ml 01/12/25 20:00 01/23/25 15:26 Ipratropium 0.5 Mg/Albuterol Sulfate 2.5 Mg Ampul.Neb 3 Ml INHALATION 3 ml Q6HRT MADIE Administration Allopurinol 100 mg 01/13/25 09:00 01/23/25 08:09 Allopurinol 100 Mg Tablet PO 100 mg DAILY MADIE Administration Atorvastatin Calcium 80 mg 01/12/25 21:50 01/22/25 20:10 Atorvastatin 40 Mg Tablet PO 80 mg HS MADIE Administration Calcium Acetate 667 mg 01/13/25 08:00 01/23/25 17:21 Calcium Acetate 667 Mg Tablet PO 667 mg TIDWM MADIE Administration Carvedilol 25 mg 01/12/25 21:00 01/23/25 08:08 Carvedilol 25 Mg Tablet PO 25 mg Q12H MADIE Administration Clopidogrel Bisulfate 75 mg 01/13/25 09:00 01/23/25 08:09 Clopidogrel Bisulfate 75 Mg Tablet PO 75 mg DAILY MADIE Administration Dextrose 12.5 gm 01/12/25 17:13 Dextrose 50% 25 Gm/50 Ml Syringe IV PUSH PRN PRN Hypoglycemia Protocol Docusate Sodium 100 mg 01/12/25 17:13 01/22/25 23:46 Docusate Sodium 100 Mg Capsule PO 100 mg BID PRN Administration Constipation Ezetimibe 10 mg 01/13/25 09:00 01/23/25 08:08 Ezetimibe 10 Mg Tablet PO 10 mg DAILY MADIE Administration Furosemide 80 mg 01/13/25 09:00 01/23/25 08:08 Furosemide 80 Mg Tablet PO 80 mg QAM MADIE Administration Gabapentin 100 mg 01/13/25 09:00 01/23/25 08:08 Gabapentin 100 Mg Capsule PO 100 mg DAILY MADIE Administration Glucagon 1 mg 01/12/25 17:13 Glucagon For Inj 1 Mg Vial IM PRN PRN Hypoglycemia Protocol Glucose 15 gm 01/12/25 17:13 Glucose Oral Gel 15 Gm Of Glucse In 37.5 Gm Tube PO PRN PRN Hypoglycemia Protocol Dextrose 1,000 mls @ 100 mls/hr 01/12/25 17:13 Dextrose 5% 1,000 Ml IVPB PRN PRN Hypoglycemia Protocol Albumin Human 50 mls @ 999 mls/hr 01/22/25 05:00 Albutein IVPB Q10M PRN HYPOTENSION Insulin Aspart 2 - 5 units 01/13/25 08:00 01/23/25 17:11 Insulin Aspart (*Bkc) 100 Units/Ml SUB-Q Not Given TIDWM [facility] Protocol Insulin Aspart 1 - 2 units 01/12/25 21:00 01/22/25 20:14 Insulin Aspart (*Bkc) 100 Units/Ml SUB-Q Not Given HS [facility] Protocol Insulin Glargine 25 units 01/12/25 21:50 01/22/25 20:14 Insulin Glargine (*Bkc) 100 Units/Ml SUB-Q 25 units HS MADIE Administration Irbesartan 150 mg 01/13/25 09:00 01/14/25 12:32 Irbesartan 150 Mg Tablet PO 150 mg DAILY MADIE Administration Isosorbide Dinitrate 5 mg 01/12/25 21:50 01/23/25 17:21 Isosorbide Dinitrate 5 Mg Tablet PO 5 mg BID MADIE Administration Lidocaine/Prilocaine 1 each 01/13/25 15:43 01/21/25 07:58 Lidocaine/Prilocaine Cream 2.5-2.5% Tube TOPICAL 1 each WITH DIALYSIS PRN Administration Pain Methocarbamol 500 mg 01/12/25 21:43 Methocarbamol 500 Mg Tablet PO QID PRN Muscle spasms Nitroglycerin 0.4 mg 01/12/25 21:38 Nitroglycerin Sl 0.4 Mg Tablet SUBLINGUAL Q5MIN PRN chest pain Pantoprazole Sodium 40 mg 01/13/25 09:00 01/23/25 08:08 Pantoprazole 40 Mg Tablet PO 40 mg QAM MADIE Administration Polyethylene Glycol 17 gm 01/20/25 05:03 01/22/25 17:32 Polyethylene Glycol 3350 17 Gm Powd.Pack PO 17 gm QAM PRN Administration Constipation Prednisolone Acetate 1 drop 01/12/25 21:40 01/23/25 08:10 Prednisolone Acetate 1% Ophth 5 Ml EACH EYE 1 drop Q12HR MADIE Administration Promethazine HCl 12.5 mg 01/12/25 14:26 01/22/25 02:01 Promethazine Hcl 25 Mg/Ml Ampul IV PUSH 12.5 mg Q6H PRN Administration Nausea Vitamin D 125 mcg 01/13/25 09:00 01/23/25 08:09 Cholecalciferol (Vitamin D3) 125 Mcg (5,000 Units) Tablet PO 125 mcg DAILY MADIE Administration Radiology Results: ITS Impressions Chest X-Ray 01/20/25 14:08 IMPRESSION: 1. Stable appearance of small lung volumes and bibasilar opacities, left greater than right which could represent atelectasis or pneumonia. Labs Labs: Laboratory Results - last 24 hr 01/22/25 01/23/25 01/23/25 20:13 01:54 07:55 POC Capillary Glucose 126 H 138 H 118 H 01/23/25 01/23/25 11:49 16:52 POC Capillary Glucose 139 H 169 H
[2025-01-23] MEDS: ATORVASTATIN 40 MG TABLET 80 MG PO (20:06)
[2025-01-23] MEDS: INSULIN GLARGINE (*BKC) 100 UNITS/ML 25 UNITS SUB-Q (20:07)
[2025-01-23] MEDS: HYDROcodone/acetaminophen (*CRX) 5-325 MG TABLET 1 TAB PO (21:54)
[2025-01-24] VITALS (24 sets, daily range): BP systolic 88–159; BP diastolic 42–83; PULSE 84–92; RESP 18–20; TEMP 36.9–37.1; O2SAT 95
[2025-01-24] MEDS: IPRATROPIUM 0.5 MG/ALBUTEROL SULFATE 2.5 MG AMPUL.NEB 3 ML INHALATION ×2 (01:19→08:53)
[2025-01-24] MEDS: LIDOCAINE/PRILOCAINE CREAM 2.5-2.5% TUBE 1 EACH TOPICAL (08:10)
[2025-01-24] MEDS: CALCIUM ACETATE 667 MG TABLET PO ×2 (08:14→11:56)
[2025-01-24] MEDS: FUROSEMIDE 80 MG TABLET PO (09:37)
[2025-01-24] MEDS: ISOSORBIDE DINITRATE 5 MG TABLET PO (09:37)
[2025-01-24] MEDS: CHOLECALCIFEROL (VITAMIN D3) 125 MCG (5,000 UNITS) TABLET PO (09:37)
[2025-01-24] MEDS: EZETIMIBE 10 MG TABLET PO (09:37)
[2025-01-24] MEDS: GABAPENTIN 100 MG CAPSULE PO (09:37)
[2025-01-24] MEDS: CLOPIDOGREL BISULFATE 75 MG TABLET PO (09:37)
[2025-01-24] MEDS: PANTOPRAZOLE 40 MG TABLET PO (09:37)
[2025-01-24] MEDS: prednisoLONE ACETATE 1% OPHTH 5 ML 1 DROP EACH EYE (09:38)
--- NOTE | 2025-01-24 09:41 | PCOTNOTE ---
The patient treatment was not able to be completed. Patient is going to HD any moment per RN and visitor was present. Will plan to continue treatment per plan of care.
--- NOTE | 2025-01-24 11:32 | P.DS_ITS ---
DS: Admitting Diagnosis Discharge Date 01/24/2025 Admitting Diagnosis Shortness of breath DS: Discharge Diagnosis Discharge Diagnosis (1) ESRD needing dialysis: Code(s): N18.6 - End stage renal disease; Z99.2 - Dependence on renal dialysis Status: Acute (2) Pneumonia: Qualifiers: Pneumonia type: due to unspecified organism Laterality: unspecified laterality Lung location: unspecified part of lung Qualified Code(s): J18.9 - Pneumonia, unspecified organism Code(s): J18.9 - Pneumonia, unspecified organism Status: Acute (3) Diastolic congestive heart failure: Qualifiers: Heart failure chronicity: unspecified Qualified Code(s): I50.30 - Unspecified diastolic (congestive) heart failure Code(s): I50.30 - Unspecified diastolic (congestive) heart failure Status: Acute (4) Type 2 diabetes mellitus: Qualifiers: Diabetes mellitus mcfp insulin use: with mcfp use Diabetes mellitus complication status: with hyperglycemia Qualified Code(s): E11.65 - Type 2 diabetes mellitus with hyperglycemia; Z79.4 - group home (current) use of insulin Code(s): E11.9 - Type 2 diabetes mellitus without complications Status: Acute (5) Coronary artery disease: Qualifiers: Coronary Disease-Associated Artery/Lesion type: [place] artery [place] vs. transplanted heart: [place] heart Associated angina: without angina Qualified Code(s): I25.10 - Atherosclerotic heart disease of [place] coronary artery without angina pectoris Code(s): I25.10 - Atherosclerotic heart disease of [place] coronary artery without angina pectoris Status: Chronic (6) Weakness: Code(s): R53.1 - Weakness Status: Acute DS: Summary Hospital Course Hospital Course: # ESRD needing dialysis: * Fluid overload on exam upon admission * Dialysis T/T/S * Nephrology consulted, appreciate further recommendationsHD on 01/12. Patient hemodialysis per Nephrology * Continue phosphate binders * Monitor daily labs * Nephrology consult - appreciate further recommendations * Kidney function near baseline * Unchanged, stable - continue Dialysis while admitted # Pneumonia: * CXR: Bibasilar airspace disease with crowding of the pulmonary vessels due to low lung lines. Considerations include edema, atelectasis and/or pneumonia. * started on CAP tx: azithromycin & ceftriaxone * Viral PCR: negative for Flu/COVID/RSV * Consider ordering legionella, mycoplasma and pneumococcal * no supplemental O2 requirement * supportive treatment * Monitor vital signs, I&Os, neuro status and patient is a fall risk * Follow WBC, serum electrolytes, temperature curves and cultures * Gentle IV fluid resuscitation * Guaifenesin, DuoNebs * Remains afebrile without leukocytosis or productive lung sounds, denies cough * Continued Augmentin, azithromycin through 01/18 # Diastolic congestive heart failure: * HD Thursday * Pulmonary edema on x-ray * Dialysis * Continue p.o. Lasix # Type 2 diabetes mellitus: * Diabetic renal diet * Accu-Cheks a.c. HS * SSI and Lantus * Continue Zetia # Coronary artery disease: * Continue Lipitor, Zetia, isosorbide, nitro, and carvedilol # Weakness: * Multifactorial * Likely 2/2 to underlying infection, ESRD/missed dialysis * PT/OT evals - recommend further rehab (SNF, MARG[facility]) * Working with CC regarding placement - pt needs dialysis T/T/S, facility will need to work with this schedule * Going to [facility] for [facility] Time Spent with Patient Time attestation: Total time spent providing and/or coordinating discharge services: 35 minutes Exam Narrative: HEENT: PERRL, sclerae nonicteric, pharyngeal mucosa pink and intact NECK: No JVD, adenopathy, or thyromegaly CHEST: Clear to auscultation. Normal effort. HEART: NL S1/S2, regular, soft PATY ABDOMEN: BS+, soft, nontender, no mass, no bruits EXTREMITIES: No cyanosis, edema, or clubbing NEUROLOGIC: CN intact and symmetric to inspection. MUSCULOSKELETAL: RLE amputation PSYCH: Alert. Oriented to person, place, and time. DS: Data Data Completed and Pending Labs on day of discharge: Labs from last 24 hours 01/24/25 01/23/25 01/23/25 08:03 20:10 16:52 POC Capillary Glucose 118 H 170 H 169 H 01/23/25 11:49 POC Capillary Glucose 139 H Imaging Radiologist's impression: ITS Impressions Chest X-Ray 01/12/25 10:53 Impression: 1: Bibasilar airspace disease with crowding of the pulmonary vessels due to low lung lines. Considerations include edema, atelectasis and/or pneumonia. Chest X-Ray 01/20/25 14:08 IMPRESSION: 1. Stable appearance of small lung volumes and bibasilar opacities, left greater than right which could represent atelectasis or pneumonia. Discharge Plan Discharge Attending physician on discharge: Jagdeep Rivera Consulting providers: Myles Crump; Paul Balderrama Discharging Clinician: Jagdeep Rivera Anticipated Discharge Date/Time: 01/24/25 11:35 Patient Disposition: SNF Activity: as tolerated Diet: heart healthy, diabetic and renal Patient Language: Sri Lankan Stand Alone Forms: General Discharge Information, Senior Living Discharge Follow-up/Referrals: Kishore Rosario, [Primary Care Provider] - 1 Week Discharge Medications: New polyethylene glycol 3350 [Miralax] 17 gram Powder In Packet 17 g PO QAM PRN (Reason: Constipation) Qty: 30 0RF Continued clopidogrel [Plavix] 75 mg tablet 75 mg PO DAILY Qty: 90 3RF insulin degludec [Tresiba FlexTouch U-100] 100 unit/mL (3 mL) insulin pen 25 unit subcut DAILY 90 Days Qty: 24 1RF insulin aspart U-100 [Novolog FlexPen U-100 Insulin] 100 unit/mL (3 mL) insulin pen See Rx Instructions subcut USEASDIRECTD MDD 50 90 Days Qty: 45 1RF Rx Instructions: -8 units before meals. Add for high sugar before meals 2 for 50 more than 150 omega 3-wyo-fqk-fish oil [Fish Oil] 1,000 mg (120 mg-180 mg) capsule 1 cap PO DAILY multivitamin Tablet 1 tablet PO DAILY cholecalciferol (vitamin D3) 25 mcg (1,000 unit) capsule 125 mcg PO DAILY (DME) pen needle, diabetic [BD Ultra-Fine Carla Pen Needle] 32 gauge x 5/32 needle See Rx Instructions .ROUTE .MEDSUPPLY Qty: 400 1RF Rx Instructions: use four times daily albuterol sulfate 90 mcg/actuation HFA aerosol inhaler 1 inh inhalation Q4H PRN (Reason: shortness of breath or wheezing) Qty: 8.5 1RF ezetimibe 10 mg tablet 10 mg PO DAILY gabapentin 100 mg capsule 100 mg PO DAILY irbesartan 150 mg tablet 150 mg PO DAILY isosorbide dinitrate [Isordil Titradose] 5 mg tablet 5 mg PO BID Rx Instructions: allow nitrate-free interval of 12-14 hrs per 24-hr period Trulicity 1.5 mg/0.5 mL pen injector 1.5 mg subcut WEEKLY prednisolone acetate 1 % drops,suspension 1 drp EACH EYE Q12H pantoprazole [Protonix] 40 mg tablet,delayed release (DR/EC) 40 mg PO QAM nitroglycerin 0.4 mg tablet, sublingual 0.4 mg sublingual Q5-15M PRN (Reason: chest pain) Rx Instructions: do not exceed 3 doses per episode calcium acetate(phosphat bind) 667 mg capsule 667 mg PO TIDWM Qty: 270 3RF furosemide 80 mg tablet 80 mg PO QAM Qty: 90 0RF carvedilol 25 mg tablet 25 mg PO Q12H Qty: 180 3RF Rx Instructions: must administer with a meal/food allopurinol 100 mg tablet 100 mg PO DAILY Qty: 90 3RF atorvastatin 80 mg tablet 80 mg PO HS Qty: 90 1RF Date of admission: 01/13/25 13:01 Primary Care Provider: Kishore Rosario Admitting Provider: Le Osman Attending physician on admission: Le Osman Condition: Stable
--- NOTE | 2025-01-24 12:50 | PCOTNOTE ---
Patient out of the room at this time Patient is in dialysis.
--- NOTE | 2025-01-24 13:25 | P.PNNP_ITS ---
Progress Note: A&P Assessment and Plan (1) End stage renal disease: Code(s): N18.6 - End stage renal disease Status: Chronic Assessment and Plan: * HD today * continue dialysis schedule of T/T/S while hospitalized * follow electrolytes, volume status, and clearance (2) Acute hypoxic respiratory failure: Code(s): J96.01 - Acute respiratory failure with hypoxia Status: Acute Assessment and Plan: * resolved * as noted on presentation * suspect multifactorial etiology: * pneumonia * mild fluid overload * diastolic heart failure * missed HD treatment this week (on 01/10) * COPD * weaned off supplemental oxygen * continue current therapy as outlined (3) Pneumonia: Code(s): J18.9 - Pneumonia, unspecified organism Status: Acute Assessment and Plan: * clinical improvement noted * as suggested by admission imaging: * CXR with bibasilar airspace disease with crowding of the pulmonary vessels due to low lung lines * viral testing for influenza/RSV/COVID negative * follow culture data - negative to date * on antibiotics (4) Chronic diastolic heart failure: Code(s): I50.32 - Chronic diastolic (congestive) heart failure Status: Acute Assessment and Plan: * first noted in 2020 * compensated with fluid removal with dialysis * mild fluid overload/exacerbation due to missed treatment (on 01/10) * s/p DUF session (on 01/13) with 3L fluid removal * continue supportive therapy (5) Anemia: Qualifiers: Anemia type: unspecified type Qualified Code(s): D64.9 - Anemia, unspecified Code(s): D64.9 - Anemia, unspecified Status: Chronic Assessment and Plan: * due to ESRD * Epogen with HD * follow trend of H/H (6) Hypertension: Qualifiers: Hypertension type: primary hypertension Qualified Code(s): I10 - Essential (primary) hypertension Code(s): I10 - Essential (primary) hypertension Status: Chronic Assessment and Plan: * reasonable control at this time * follow trend of hemodynamics (7) Chronic obstructive pulmonary disease: Qualifiers: COPD type: emphysema Emphysema type: unspecified Qualified Code(s): J 43.9 - Emphysema, unspecified Code(s): J44.9 - Chronic obstructive pulmonary disease, unspecified Status: Chronic Assessment and Plan: * no evidence of acute exacerbation * maybe partly played a role with #2 (8) Insulin dependent type 2 diabetes mellitus: Code(s): E11.9 - Type 2 diabetes mellitus without complications; Z79.4 - intermediate manager (current) use of insulin Status: Acute Assessment and Plan: * follow accu-cheks * glycemic control per hospitalist Not opposed to discharge from renal perspective if otherwise medically stable and discharge disposition finalized. Will continue to follow. L Subjective Date/time seen: 01/24/25 13:25 Interval history: Follow-up for end stage renal disease on hemodialysis. Tolerating dialysis treatment at the time of my visit (seen on HD at 1:15pm); no apparent issues or problems overnight or currently; feels reasonably well; no apparent distress noted. Exam 2 Narrative: General: elderly but WD/WN male in NAD Heart: normal S1 and S2; no rub Lungs: clear anteriorly Abdomen: soft, nontender, nondistended, positive bowel sounds Extremities: no cyanosis or clubbing; no edema; s/p right AKA Skin: no nodules Objective Data Vital Signs Vital Signs: Vital Signs Temp Pulse Resp BP Pulse Ox O2 Del Method FiO2 01/24/25 13:15 84 90/49 L 01/24/25 13:00 87 90/56 L 01/24/25 12:45 86 88/52 L 01/24/25 12:30 88 126/73 01/24/25 12:16 85 135/76 01/24/25 12:08 98.4 F 87 18 131/73 01/24/25 09:40 84 124/68 01/24/25 09:36 92 01/24/25 09:03 92 20 01/24/25 08:54 88 20 01/24/25 08:00 Room Air 01/24/25 05:01 98.7 F 89 20 159/83 H 95 01/24/25 01:28 90 20 01/24/25 01:19 89 20 01/23/25 21:13 89 20 99 Room Air 21 01/23/25 21:11 89 20 01/23/25 20:13 98.1 F 85 16 153/71 H 96 01/23/25 20:06 86 01/23/25 20:00 Room Air Intake/Output Intake/Output: Intake & Output 01/21/25 01/22/25 01/23/25 01/24/25 23:59 23:59 23:59 23:59 Intake Total 800 1410 1520 340 Output Total 2400 144 873 2794 Balance -1600 1310 231 -0789 Meds/Results Medications: Active Medications Generic Name Dose Route Start Last Admin Trade Name Freq PRN Reason Stop Dose Admin Acetaminophen 650 mg 01/12/25 17:13 Acetaminophen 325 Mg Tablet PO Q4H PRN Mild Pain (1-3) or Fever Hydrocodone Bitart/Acetaminophen 1 tab 01/22/25 10:18 01/23/25 21:54 Hydrocodone/Acetaminophen (*Crx) 5-325 Mg Tablet PO 1 tab Q6H PRN Administration Pain Rated 4-6 Albuterol/Ipratropium 3 ml 01/12/25 20:00 01/24/25 14:45 Ipratropium 0.5 Mg/Albuterol Sulfate 2.5 Mg Ampul.Neb 3 Ml INHALATION Not Given Q6HRT MADIE Allopurinol 100 mg 01/13/25 09:00 01/24/25 09:36 Allopurinol 100 Mg Tablet PO 100 mg DAILY MADIE Administration Atorvastatin Calcium 80 mg 01/12/25 21:50 01/23/25 20:06 Atorvastatin 40 Mg Tablet PO 80 mg HS MADIE Administration Calcium Acetate 667 mg 01/13/25 08:00 01/24/25 11:56 Calcium Acetate 667 Mg Tablet PO 667 mg TIDWM MADIE Administration Carvedilol 25 mg 01/12/25 21:00 01/24/25 09:36 Carvedilol 25 Mg Tablet PO 25 mg Q12H MADIE Administration Clopidogrel Bisulfate 75 mg 01/13/25 09:00 01/24/25 09:37 Clopidogrel Bisulfate 75 Mg Tablet PO 75 mg DAILY MADIE Administration Dextrose 12.5 gm 01/12/25 17:13 Dextrose 50% 25 Gm/50 Ml Syringe IV PUSH PRN PRN Hypoglycemia Protocol Docusate Sodium 100 mg 01/12/25 17:13 01/22/25 23:46 Docusate Sodium 100 Mg Capsule PO 100 mg BID PRN Administration Constipation Ezetimibe 10 mg 01/13/25 09:00 01/24/25 09:37 Ezetimibe 10 Mg Tablet PO 10 mg DAILY MADIE Administration Epoetin Patel-epbx 10,000 units 01/24/25 18:00 01/24/25 15:43 Epoetin Patel-Epbx 10,000 Units/Ml Vial IV PUSH 01/24/25 18:01 10,000 units ONCE ONE Administration Furosemide 80 mg 01/13/25 09:00 01/24/25 09:37 Furosemide 80 Mg Tablet PO 80 mg QAM MADIE Administration Gabapentin 100 mg 01/13/25 09:00 01/24/25 09:37 Gabapentin 100 Mg Capsule PO 100 mg DAILY MADIE Administration Glucagon 1 mg 01/12/25 17:13 Glucagon For Inj 1 Mg Vial IM PRN PRN Hypoglycemia Protocol Glucose 15 gm 01/12/25 17:13 Glucose Oral Gel 15 Gm Of Glucse In 37.5 Gm Tube PO PRN PRN Hypoglycemia Protocol Dextrose 1,000 mls @ 100 mls/hr 01/12/25 17:13 Dextrose 5% 1,000 Ml IVPB PRN PRN Hypoglycemia Protocol Albumin Human 50 mls @ 999 mls/hr 01/24/25 06:54 01/24/25 13:30 Albutein IVPB 02/23/25 06:53 999 mls/hr Q10M PRN Administration HYPOTENSION Insulin Aspart 2 - 5 units 01/13/25 08:00 01/24/25 12:26 Insulin Aspart (*Bkc) 100 Units/Ml SUB-Q Not Given TIDWM [facility] Protocol Insulin Aspart 1 - 2 units 01/12/25 21:00 01/23/25 21:24 Insulin Aspart (*Bkc) 100 Units/Ml SUB-Q Not Given HS [facility] Protocol Insulin Glargine 25 units 01/12/25 21:50 01/23/25 20:07 Insulin Glargine (*Bkc) 100 Units/Ml SUB-Q 25 units HS MADIE Administration Irbesartan 150 mg 01/13/25 09:00 01/14/25 12:32 Irbesartan 150 Mg Tablet PO 150 mg DAILY MADIE Administration Isosorbide Dinitrate 5 mg 01/12/25 21:50 01/24/25 09:37 Isosorbide Dinitrate 5 Mg Tablet PO 5 mg BID MADIE Administration Lidocaine/Prilocaine 1 each 01/13/25 15:43 01/24/25 08:10 Lidocaine/Prilocaine Cream 2.5-2.5% Tube TOPICAL 1 each WITH DIALYSIS PRN Administration Pain Methocarbamol 500 mg 01/12/25 21:43 Methocarbamol 500 Mg Tablet PO QID PRN Muscle spasms Nitroglycerin 0.4 mg 01/12/25 21:38 Nitroglycerin Sl 0.4 Mg Tablet SUBLINGUAL Q5MIN PRN chest pain Pantoprazole Sodium 40 mg 01/13/25 09:00 01/24/25 09:37 Pantoprazole 40 Mg Tablet PO 40 mg QAM MADIE Administration Polyethylene Glycol 17 gm 01/20/25 05:03 01/22/25 17:32 Polyethylene Glycol 3350 17 Gm Powd.Pack PO 17 gm QAM PRN Administration Constipation Prednisolone Acetate 1 drop 01/12/25 21:40 01/24/25 09:38 Prednisolone Acetate 1% Ophth 5 Ml EACH EYE 1 drop Q12HR MADIE Administration Promethazine HCl 12.5 mg 01/12/25 14:26 01/22/25 02:01 Promethazine Hcl 25 Mg/Ml Ampul IV PUSH 12.5 mg Q6H PRN Administration Nausea Vitamin D 125 mcg 01/13/25 09:00 01/24/25 09:37 Cholecalciferol (Vitamin D3) 125 Mcg (5,000 Units) Tablet PO 125 mcg DAILY MADIE Administration Radiology Results: ITS Impressions Chest X-Ray 01/20/25 14:08 IMPRESSION: 1. Stable appearance of small lung volumes and bibasilar opacities, left greater than right which could represent atelectasis or pneumonia. Labs Labs: Laboratory Tests 01/21/25 04:57 01/21/25 04:57
[2025-01-24] MEDS: ALBUMIN HUMAN 25% 12.5 GM/50ML 50 ML IVPB (13:30)
[2025-01-24] MEDS: EPOETIN ALFA-EPBX 10,000 UNITS/ML VIAL 10000 UNITS IV PUSH (15:43)
[2025-01-24] MEDS: SODIUM CHLORIDE 0.9% IV 1,000 ML 999 ML IV CONT (16:07)
== END 2025-01-24 17:00 | DRG 291 ==
LOC: ANHED 11:42 → ANH2MED 15:27
PROVIDERS: Internal Medicine Nephrology; Physician Assistant; Admitting Provider Family Medicine; Emergency Provider Emergency Medicine; PCP Internal Medicine; Visit Provider Internal Medicine
DX: I13.2 Hypertensive heart and chronic kidney disease with heart failure and with stage 5 chronic kidney disease, or end stage renal disease (principal); I50.33 Acute on chronic diastolic (congestive) heart failure; N18.6 End stage renal disease; J18.9 Pneumonia, unspecified organism; J96.21 Acute and chronic respiratory failure with hypoxia; J44.0 Chronic obstructive pulmonary disease with (acute) lower respiratory infection; Z91.158 Patient's noncompliance with renal dialysis for other reason; E11.65 Type 2 diabetes mellitus with hyperglycemia; I25.10 Atherosclerotic heart disease of native coronary artery without angina pectoris; E11.42 Type 2 diabetes mellitus with diabetic polyneuropathy; N40.0 Benign prostatic hyperplasia without lower urinary tract symptoms; D63.1 Anemia in chronic kidney disease; E78.5 Hyperlipidemia, unspecified; Z20.822 Contact with and (suspected) exposure to COVID-19; Z99.2 Dependence on renal dialysis; Z79.4 Long term (current) use of insulin; Z89.611 Acquired absence of right leg above knee; Z95.0 Presence of cardiac pacemaker; Z95.5 Presence of coronary angioplasty implant and graft
CPT/HCPCS: 36415; 71045; 71046; 80053; 80069; 80076; 82140; 82948; 83735; 83880; 84100; 85025; 86706; 87040; 87070; 87205; 87340; 87641; 93005; 94640; 96374; 96375; 96376; 97110; 97116; 97162; 97165; 97530; 97535; 99212; 99285; A9270; G0257; G0378; G0463; J0456; J0696; J1644; J1815; J1938; J2550; J7030; J7050; P9047; Q5105

== ENCOUNTER 2025-03-20 16:05 | Emergency (ER) | payer MEDICARE, SELFPAY ==
--- OUTSIDE RECORDS SUMMARY | 2024-10-17 06:30 | XMS_ITS ---
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 Name Role Phone JOHNNA LR Unavailable [phone] Kishore Rosario Unavailable Unavailable REASON FOR VISIT *General care Encounters Encounter Location Date Provider Diagnosis [facility] [place] [address] [facility] [address] [place], [place] [id number] 10/17/2024 JOHNNA LR Plan Of Treatment Next Appt Details Provider Name:DANYELLE ESQUIVEL, 06/07/2025 10:20:00 AM, [address], [place], [place], [id number], Progress Notes * KYLER DUDOB:[birth year] (69 yo M)Acc No.[id number]:10/17/2024 Patient: Amadeo CHASE KYLER Provider: Marco Lr DPM :1955 A ge:69 Y S ex:Male Date:10/17/2024 Address: [address] [place], [place] Subjective: * Chief Complaints: * 1 . *General care. * Medical History: Objective: * Vitals: Assessment: Plan: * Treatment: * Billing Information: * Visit Code: * Procedure Codes: * Electronic signature of JOHNNA LR DPM on 03/20/2025 at 04:16 PM CDT Sign off status: Pending * Provider: Marco Lr DPM Date: 0 10/17/2024 Generated for [place] el/Ayaz on: 1 04:16 PM CDT
--- OUTSIDE RECORDS SUMMARY | 2024-10-26 04:30 | XMS_ITS ---
Author Organization [facility] Address [address] [place], [place] [id number] Care Team Providers Care Chief Design Engineer Name Role Phone JOHNNA LR Unavailable [phone] Kishore Rosario Unavailable Unavailable DANYELLE BOND Unavailable [phone] Allergies Allergen (clinical drug ingredient) Drug/Non Drug Allergy documented on EMR Reaction Allergy Type Onset Date Status Iodine Hives Drug Allergy 12/30/2019 Active lisinopril Lisinopril Cough Drug Allergy 04/14/2021 Acti ve REASON FOR VISIT left heel pain follow-up Medications Medication SIG (Take, Route, Frequency, Duration) Notes Start Date End Date Status Allopurinol 100 MG TAKE 1 TABLET DAILY Oral; Duration: 90 Days Active Carvedilol 25 MG TAKE 1 TABLET EVERY 12 HOURS, MUST ADMINISTER WITHMEALS/FOOD Oral; Duration: 90 Days Active NovoLOG FlexPen 100 UNIT/ML INJECT 8 UNITS BEFORE MEALS ADD FOR HIGH SUGAR BEFORE MEALS 2 FOR 50 MORE THAN 150. MAXIMUM DAILY DOSE 50 Subcutaneous; Duration: 90 Days Active Ozempic (1 MG/DOSE) 4 MG/3ML INJECT 1MG SUBCUTANEOUSLY WEEKLY (EVERY 7 DAYS) Subcutaneous; Duration: 84 Days Active Tresiba FlexTouch 100 UNIT/ML INJECT 25 UNITS SUBCUTANEOUSLY DAILY Subcutaneous; Duration: 90 Days Active Ondansetron HCl 4 MG Oral; Duration: 30 Days Active Clopidogrel Bisulfate 75 MG Oral; Duration: 90 Days Acti ve Atorvastatin Calcium 80 MG Oral; Duration: 90 Days Acti ve amLODIPine Besylate 5 MG Oral; Duration: 90 Days Active Gabapentin 100 MG Oral; Duration: 90 Days Active prednisoLONE Acetate 1 % Ophthalmic; Dur ation: 25 Days Active Vital Signs Height 72.00 in 10/26/2024 Weight 210 lbs 10/26/2024 BMI 28.48 kg/m2 10/26/2024 Height-cm 182.88 cm 10/26/2024 Weight-kg 95.26 kg 10/26/2024 Encounters Encounter Location Date Provider Diagnosis [facility] [place] [address] [place], [place] [id number] 10/26/2024 DANYELLE BOND Plantar fascial fibromatosis M72.2 ; Achilles tendinitis, left leg M76.62 ; Localized edema R60.0 ; Type 2 diabetes mellitus with other circulatory complications E11.59 and Pain in left foot M79.672 Assessments Encounter Date Diagnosis (ICD Code) Assessment Notes Treatment Notes Treatment Clinical Notes Section Notes 10/26/2024 Plantar fascial fibromatosis (ICD-10 - M72.2) stretches reviewed, stick to open kinetic chain stretches until in home physical therapy begins. Patient cannot attend outpatient PT as he is home bound unless his daughter drives in from 1.5 hours away. 10/26/2024 Achilles tendinitis, left leg (ICD-10 - M76.62) Patient will buy supportive shoes, use heel cup (dispensed) and orthotic in weight bearing. Patient will begin in home P.T. next week through [facility]. 10/26/2024 Localized edema (ICD-10 - R60.0) An unna boot was applied to the affected foot. The patient was instructed to keep it dry. Keep unna boot intact for 3-7 days, begin compression sock daily after it is removed. 10/26/2024 Type 2 diabetes mellitus with other circulatory complications (ICD-10 - E11.59) monitor vascular changes, currently stable. 10/26/2024 Pain in left foot (ICD-10 - M79.672) apply biofreeze spray as needed for pain to heel. He states this does help. Do not ice due to vascular condition. Plan Of Treatment Treatment Notes Assessment Notes Plantar fascial fibromatosis stretches r eviewed, stick to open kinetic chain stretches until in home physical therapy begins. Patient cannot attend outpatient PT as he is home bound unless his daughter drives in from 1.5 hours away. Achilles tendinitis, left leg Patient wi ll buy supportive shoes, use heel cup (dispensed) and orthotic in weight bearing. Patient will begin in home P.T. next week through [facility]. Localized edema An unna boot was applied to the affected foot. The patient was instructed to keep it dry. Keep unna boot intact for 3-7 days, begin compression sock daily after it is removed. Type 2 diabetes mellitus wit h other circulatory complications monitor vascular changes, currently stable. Pain in left foot apply biofreeze spra y as needed for pain to heel. He states this does help. Do not ice due to vascular condition. Next Appt Details Follow Up: 2 Weeks, Reason: follow up heel pain, edema Provider Name:DANYELLE ESQUIVEL, 06/07/2025 10:20:00 AM, [address], [facility], [place], [place], [id number], Progress Notes * KYLER DUDOB:[birth year] (69 yo M)Acc No.[id number]:10/26/2024 Patient: Amadeo ZAMZAMKYLER PATEL Provider: Kailyn BOND :1955 A ge:69 Y S ex:Male Date:10/26/2024 Address:[facility] [address] [id number] Subjective: * Chief Complaints: * 1 . Left heel pain follow-up. * HPI: H PI: Follow Up Visit Uvaldo palencia presents for follow-up visit for left heel pain. Patient states that the heel cup in his shoe seems to be helping his pain some. He states that he has been putting the Tubigrip over his compression socks and his swelling has gone down significantly. He states that it feels like a cracking in the bottom of his foot when he flexes it. , MA: keyonna. * ROS: G eneral / Constitutional: Patient denies c hills, fatigue, fever. P atient complains of p ain left heel. M usculoskeletal: Patient complains of P atient denies trauma, falls, broken foot bone, m uscle cramps. Patient admits to continued pain on first step after rest and pain with pressure to heel. Patient had an amputation to RLE 2 years ago secondary to gangrene. He primarily uses a wheelchair and transfers using his prosthetic R limb with assistance from care takers, o rthotic use daily to left foot. Wearing loose slide in skechers.. P eripheral Vascular: Patient complains of d ecreased sensation in extremities, painful extremities, cold extremities. P odiatric: Achilles pain a dmits. A chilles swelling a dmits.? S kin: Patient denies i tching, ingrown nails, ulcerations. ? N eurologic: Patient complains of g ait abnormality, loss of strength, pain, balance difficulty. * Medical History: I omari deficiency anemia, Heart Disease, Peripheral vascular disease, Anxiety, Diabetic, Hypertension. * Surgical History: P mireyamaker . * Family History: F ather: PRN - Father: :: Heart disease,,known absent , :: Stroke,,known absent , :: Diabetes,,known absent . M other: PRN - Mother: :: Hypertension,,known absent . S ister: SIB - Sister: :: Cancer,,known absent , :: Arthritis,,known absent . * Medications: T aking prednisoLONE Acetate 1 % Suspension Ophthalmic , Taking Clopidogrel Bisulfate 75 MG Tablet Oral , Taking Atorvastatin Calcium 80 MG Tablet Oral , Taking amLODIPine Besylate 5 MG Tablet Oral , Taking Gabapentin 100 MG Capsule Oral , Taking Ondansetron HCl 4 MG Tablet Oral , Taking NovoLOG FlexPen 100 UNIT/ML Solution Pen-injector INJECT 8 UNITS BEFORE MEALS ADD FOR HIGH SUGAR BEFORE MEALS 2 FOR 50 MORE THAN 150. MAXIMUM DAILY DOSE 50 Subcutaneous , Taking Ozempic (1 MG/DOSE) 4 MG/3ML Solution Pen-injector INJECT 1MG SUBCUTANEOUSLY WEEKLY (EVERY 7 DAYS) Subcutaneous , Taking Tresiba FlexTouch 100 UNIT/ML Solution Pen-injector INJECT 25 UNITS SUBCUTANEOUSLY DAILY Subcutaneous , Taking Allopurinol 100 MG Tablet TAKE 1 TABLET DAILY Oral , Taking Carvedilol 25 MG Tablet TAKE 1 TABLET EVERY 12 HOURS, MUST ADMINISTER WITHMEALS/FOOD Oral , Medication List reviewed and reconciled with the patient * Allergies: I odine: Hives - Criticality Unknown - Onset Date 12/30/2019, Lisinopril: Cough - Criticality Unknown - Onset Date 04/14/2021. Objective: * Vitals: W t:210lbs, Wt-k.26 kg, Ht: 72.00 in, Ht-cm: 182.88 cm, BMI:28.48Index, Body Surface Area: 2.2. * Examination: C onstitutional: Constitutional T he patient is awake, alert, well developed, well groomed.. D ermatologic: Skin findings: l eft, leg, with reduced diffuse edema using compression sock. Forefoot still swollen. S kin is thin, atrophic and lacking pedal hair.. V ascular: , left. P osterior tibial pulse: l eft, 06/18. E mervin: l eft, pitting edema +1 diffuse to the level of midfoot, reduced from previous level at mid tibia. no heat, no vesicles. LLE is cool to touch proximal to distal. CFT< 5 seconds to digits of left foot. N eurologic: left side, sharp/dull diminished sensation, pain is constant but slightly reduced since last week, taking fewer OTC pain meds (ibuprofen). G ross sensation diminished with paresthesias to the left foot. M usculoskeletal: M uscle strength is 4/5 in regards to dorsiflexion, plantarflexion, inversion, and eversion in left lower extremities. Extensor tendons fire in dorsiflexion and actively 90 degrees, no longer pain at achilles insertion. Pain on palpation moderate and more localized to l eft plantar fascial medial band, no longer in heel. Patient voiced relief of some pain when using heel cup. P atient does not feel increased pain on palpation of ankle or on ROM of ankle STJ but has edema and pain from midfoot to forefoot with pain on palpation and ROM of the M TPJs of left foot. Assessment: * Assessment: 1. P lantar fascial fibromatosis - M72.2 (Primary) 2 . A chilles tendinitis, left leg - M76.62 3 . L ocalized edema - R60.0 4 . T ype 2 diabetes mellitus with other circulatory complications - E11.59 5 . P ain in left foot - M79.672 Plan: * Treatment: 2. A chilles tendinitis, left leg Notes: Patient will buy supportive shoes, use heel cup (dispensed) and orthotic in weight bearing. Patient will begin in home P.T. next week through [facility]. 3. L ocalized edema Notes: An unna boot was applied to the affected foot. The patient was instructed to keep it dry. Keep unna boot intact for 3-7 days, begin compression sock daily after it is removed. 4. T ype 2 diabetes mellitus with other circulatory complications Notes: monitor vascular changes, currently stable. 5. P ain in left foot Notes: apply biofreeze spray as needed for pain to heel. He states this does help. Do not ice due to vascular condition. * Immunizations: Immunization record has been reviewed and updated. * Procedure Codes: 2 9580 APPLICATION OF PASTE BOOT, Modifiers: LT * Follow Up: 2 Weeks (Reason: follow up heel pain, edema) * Billing Information: * Visit Code: 05154 Office Visit, Est Pt., Level 3. Modifiers: 25 * Procedure Codes: 20210 APPLICATION OF PASTE BOOT. Modifiers: LT * Electronic signature of PRASANNA BOND DPM on 03/20/2025 at 04:16 PM CDT Sign off status: Pending * Provider: Kailyn BOND Date: 0 10/26/2024 Generated for [place] el/Edin/Wali on: 1 04:16 PM CDT History and Physical Notes * HPI (History of Present Illness) Category Sub-Category Detail Notes Category Not es HPI Follow Up Visit Patient presents for follow-up visit for left heel pain. Patient states that the heel cup in his shoe seems to be helping his pain some. He states that he has been putting the Tubigrip over his compression socks and his swelling has gone down significantly. He states that it feels like a cracking in the bottom of his foot when he flexes it. , MA: [facility] Examination Category Sub-Category Detail Notes Category Not es Constitutional Constitutional The patient is a wake, alert, well developed, well groomed. Dermatologic Skin findings: left, leg, with reduced diffuse edema using compression sock. Forefoot still swollen. Skin is thin, atrophic and lacking pedal hair. Musculoskeletal Muscle stren gth is 4/5 in regards to dorsiflexion, plantarflexion, inversion, and eversion in left lower extremities. Extensor tendons fire in dorsiflexion and actively 90 degrees, no longer pain at achilles insertion. Pain on palpation moderate and more localized to left plantar fascial medial band, no longer in heel. Patient voiced relief of some pain when using heel cup. Patient does not feel increased pain on palpation of ankle or on ROM of ankle STJ but has edema and pain from midfoot to forefoot with pain on palpation and ROM of the MTPJs of left foot. Neurologic left side, sharp/dull diminished sensation, pain is constant but slightly reduced since last week, taking fewer OTC pain meds (ibuprofen). Gross sensation diminished with paresthesias to the left foot. Vascular 06/18, left. Post erior tibial pulse: left, 06/18. Edema: left, pitting edema +1 diffuse to the level of midfoot, reduced from previous level at mid tibia. no heat, no vesicles. LLE is cool to touch proximal to distal. CFT< 5 seconds to digits of left foot.
--- OUTSIDE RECORDS SUMMARY | 2025-01-18 04:40 | XMS_ITS ---
[facility] Address [address] [place], [place] [id number] Care Team Providers Care Medical Collections Name Role Phone JOHNNA LR Unavailable [phone] Kishore Rosario Unavailable Unavailable DANYELLE BODN Unavailable [phone] REASON FOR VISIT *General care, in hospital Encounters Encounter Location Date Provider Diagnosis [facility] [address] [place], [place] [id number] 01/18/2025 DANYELLE BOND Type 2 diabetes mellitus with other circulatory complications E11.59 ; Plantar fascial fibromatosis M72.2 ; Type 2 diabetes mellitus with other diabetic neurological complication E11.49 and Posterior tibial tendinitis, left leg M76.822 Assessments Encounter Date Diagnosis (ICD Code) Assessment Notes Treatment Notes Treatment Clinical Notes Section Notes 01/18/2025 Type 2 diabetes mellitus with other circulatory complications (ICD-10 - E11.59) 01/18/2025 Plantar fascial fibromatosis (ICD-10 - M72.2) Plantar Fascitis: I discussed anti-inflammatory treatment options and various means of pronation control with the patient. I educated the patient on icing and stretching, supportive shoegear, and the use of orthotic devices. Continue PowerStep inserts 01/18/2025 Type 2 diabetes mellitus with other diabetic neurological complication (ICD-10 - E11.49) 01/18/2025 Posterior tibial tendinitis, left leg (ICD-10 - M76.822) Posterior Tibialis Tendon Dysfunction: I discussed anti-inflammatory treatment options and various means of immobilization with the patient. I educated the patient on icing and stretching, supportive shoegear, and the use of orthotic devices and bracing. Plan Of Treatment Treatment Notes Assessment Notes Plantar fascial fibromatosis Plantar Fascitis: I discussed anti-inflammatory treatment options and various means of pronation control with the patient. I educated the patient on icing and stretching, supportive shoegear, and the use of orthotic devices. Continue PowerStep inserts Posterior tibial tendinitis, left leg Posterior Tibialis Tendon Dysfunction: I discussed anti-inflammatory treatment options and various means of immobilization with the patient. I educated the patient on icing and stretching, supportive shoegear, and the use of orthotic devices and bracing. Next Appt Details Follow Up: 2 Months, Reason: At risk foot care Provider Name:DANYELLE ESQUIVEL, 06/07/2025 10:20:00 AM, [address], [facility] [place] [facility], [place], [place], [id number], Progress Notes * KYLER DUDOB:[birth year] (69 yo M)Acc No.[id number]:01/18/2025 Patient: KYLER BURR Provider: Kailyn BOND :1955 A ge:69 Y S ex:Male Date:01/18/2025 Address:[facility] [address] [facility] Subjective: * Chief Complaints: * 1 . *General care, in hospital. * ROS: G eneral / Constitutional: Patient denies c hills, fever, weakness, night sweats. M usculoskeletal: Patient denies c hildhood foot problems, weakness. ? P eripheral Vascular: Patient denies u lceration of feet, cold extremities. ? S kin: Patient denies u lcerations, discoloration. ? N eurologic: Patient denies b alance difficulty, confusion, difficulty speaking, dizziness. * Medical History: Objective: * Vitals: * Examination: C onstitutional: Constitutional T he patient is awake, alert, well developed, well groomed and well nourished.. D ermatologic: Skin findings: S kin is thin, atrophic and lacking pedal hair. Ulcer: T here is no evidence of ulceration noted at this time. Verruca: T here is no evidence of verrucae present. ? V ascular: Dorsalis pedis pulse: 1 /4, left. Posterior tibial pulse: l eft, 06/18. Capillary refill: l ess than 3 seconds. ? N eurologic: Gross sensation P aresthesias to the left foot. ? M usculoskeletal: Muscle Strength M uscle strength is 5/5 in regards to dorsiflexion, plantarflexion, inversion, and eversion in left lower extremities.. Pain on palpation N o pain on palpation to the medial band of the left plantar fascia near its attachment to the calcaneus, no pain to the posterior tibialis tendon. No pain with ROM against resistance. Assessment: * Assessment: 1. P lantar fascial fibromatosis - M72.2 (Primary) 2 . T ype 2 diabetes mellitus with other circulatory complications - E11.59 3 . T ype 2 diabetes mellitus with other diabetic neurological complication - E11.49 4 . P osterior tibial tendinitis, left leg - M76.822 Plan: * Treatment: 2. P osterior tibial tendinitis, left leg Notes: Posterior Tibialis Tendon Dysfunction: I discussed anti-inflammatory treatment options and various means of immobilization with the patient. I educated the patient on icing and stretching, supportive shoegear, and the use of orthotic devices and bracing. * Follow Up: 2 Months (Reason: At risk foot care) * Billing Information: * Visit Code: * Procedure Codes: * Electronic signature of PRASANNA BOND DPM on 03/20/2025 at 04:16 PM CDT Sign off status: Pending * Provider: Kailyn BOND Date: 0 01/18/2025 Generated for Virginia Cuenca on: 1 04:16 PM CDT History and Physical Notes * Examination Category Sub-Category Detail Notes Category Not es Dermatologic Skin findings: Skin is thin, at rophic and lacking pedal hair Ulcer: There is no evidence of ulceration noted at this time Verruca: There is no evidence of verrucae present Neurologic Gross sensation Paresthesias to the left foot Vascular Dorsalis pedis pulse: 1/4, left Capillary refill: less than 3 seconds Posterior tibial pulse: left, 1/4 Musculoskeletal Muscle Strength Muscle strength is 5/5 in regards to dorsiflexion, plantarflexion, inversion, and eversion in left lower extremities. Pain on palpation No pain on palpation to the medial band of the left plantar fascia near its attachment to the calcaneus, no pain to the posterior tibialis tendon. No pain with ROM against resistance Constitutional Constitutional The patient is a wake, alert, well developed, well groomed and well nourished.
--- OUTSIDE RECORDS SUMMARY | 2025-03-01 05:20 | XMS_ITS ---
Author Organization [facility] Address [address] [place], [place] [id number] Care Team Providers Care Preschool Teacher Assistant Name Role Phone JOHNNA LR Unavailable [phone] Kishore Rosario Unavailable Unavailable DANYELLE BOND Unavailable [phone] Allergies Allergen (clinical drug ingredient) Drug/Non Drug Allergy documented on EMR Reaction Allergy Type Onset Date Status Iodine Hives Drug Allergy 12/30/2019 Active lisinopril Lisinopril Cough Drug Allergy 04/14/2021 Acti ve REASON FOR VISIT *General care Medications Medication SIG (Take, Route, Frequency, Duration) Notes Start Date End Date Status Ozempic (1 MG/DOSE) 4 MG/3ML INJECT 1MG SUBCUTANEOUSLY WEEKLY (EVERY 7 DAYS) Subcutaneous; Duration: 84 Days Active Tresiba FlexTouch 100 UNIT/ML INJECT 25 UNITS SUBCUTANEOUSLY DAILY Subcutaneous; Duration: 90 Days Active Allopurinol 100 MG TAKE 1 TABLET DAILY Oral; Duration: 90 Days Active Carvedilol 25 MG TAKE 1 TABLET EVERY 12 HOURS, MUST ADMINISTER WITHMEALS/FOOD Oral; Duration: 90 Days Active prednisoLONE Acetate 1 % Ophthalmic; Dur ation: 25 Days Active amLODIPine Besylate 5 MG Oral; Duration: 90 Days Active Gabapentin 100 MG Oral; Duration: 90 Days Active Ondansetron HCl 4 MG Oral; Duration: 30 Days Active NovoLOG FlexPen 100 UNIT/ML INJECT 8 UNITS BEFORE MEALS ADD FOR HIGH SUGAR BEFORE MEALS 2 FOR 50 MORE THAN 150. MAXIMUM DAILY DOSE 50 Subcutaneous; Duration: 90 Days Active Atorvastatin Calcium 80 MG Oral; Duration: 90 Days Acti ve Clopidogrel Bisulfate 75 MG Oral; Duration: 90 Days Acti ve Vital Signs Height 72.00 in 03/01/2025 Weight 210 lbs 03/01/2025 BMI 28.48 kg/m2 03/01/2025 Height-cm 182.88 cm 03/01/2025 Weight-kg 95.26 kg 03/01/2025 Encounters Encounter Location Date Provider Diagnosis [facility] [address] [place], [place] [id number] 03/01/2025 DANYELLE BOND Type 2 diabetes mellitus with other circulatory complications E11.59 ; Plantar fascial fibromatosis M72.2 ; Type 2 diabetes mellitus with other diabetic neurological complication E11.49 and Posterior tibial tendinitis, left leg M76.822 Assessments Encounter Date Diagnosis (ICD Code) Assessment Notes Treatment Notes Treatment Clinical Notes Section Notes 03/01/2025 Type 2 diabetes mellitus with other circulatory complications (ICD-10 - E11.59) 03/01/2025 Plantar fascial fibromatosis (ICD-10 - M72.2) Plantar Fascitis: I discussed anti-inflammatory treatment options and various means of pronation control with the patient. I educated the patient on icing and stretching, supportive shoegear, and the use of orthotic devices. Continue PowerStep inserts 03/01/2025 Type 2 diabetes mellitus with other diabetic neurological complication (ICD-10 - E11.49) 03/01/2025 Posterior tibial tendinitis, left leg (ICD-10 - [...] care Provider Name:DANYELLE ESQUIVEL, 06/07/2025 10:20:00 AM, [address], [facility], [place], [place], [id number], Progress Notes * KYLER DUDOB:[birth year] (69 yo M)Acc No.[id number]:03/01/2025 Patient: KYLER BURR Provider: Kailyn BOND :1955 A ge:69 Y S ex:Male Date:03/01/2025 Address:[facility] [address] [facility] Subjective: * Chief Complaints: * 1 . *General care. * HPI: H PI: General care P atient presents to the office for diabetic foot care. Patient states that their nails are thickened, elongated and painful. Patient states that it is aggravated by shoe gear. Onset is gradual., Patient is taking prescription blood thinners., Date last seen by Dr. Rosario was November 2024. , Initials OM. * ROS: G eneral / Constitutional: Patient denies c hills, fever, weakness, night sweats. M usculoskeletal: Patient denies c hildhood foot problems, weakness. ? P eripheral Vascular: Patient denies u lceration of feet, cold extremities. ? S kin: Patient denies u lcerations, discoloration. ? N eurologic: Patient denies b alance difficulty, confusion, difficulty speaking, dizziness. * Medical History: I omari deficiency anemia, Heart Disease, Peripheral vascular disease, Anxiety, Diabetic, Hypertension. * Surgical History: P acemaker . * Hospitalization/Major Diagno stic Procedure: D enies Past Hospitalization. * Family History: F ather: PRN - [...] /4, left. Posterior tibial pulse: l eft, 1/4. Capillary refill: l ess than 3 seconds. [...] use of orthotic devices and bracing. * Preventive Medicine: Screenings: F all risk screening F all Risk Assessment: N o falls in the past year. * Follow Up: 2 Months (Reason: At risk foot care) * Billing Information: * Visit Code: * Procedure Codes: * Electronic signature of PRASANNA BOND DPM on 03/20/2025 at 04:17 PM CDT Sign off status: Pending * Provider: Kailyn BOND Date: 0 03/01/2025 Generated for Virginia Cuenca on: 1 04:17 PM CDT History and Physical Notes * HPI (History of Present Illness) Category Sub-Category Detail Notes Category Not es HPI General care Patient presents to the office for diabetic foot care. Patient states that their nails are thickened, elongated and painful. Patient states that it is aggravated by shoe gear. Onset is gradual., Patient is taking prescription blood thinners., Date last seen by Dr. Rosario was November 2024. , Initials OM Examination Category Sub-Category Detail Notes Category Not [...]
--- NOTE | ~2025-03-20 | US_ITS ---
EXAMINATION: US venous doppler LE , 03/20/2025 17:20 CDT HISTORY: r/o DVT Comparison: None Technique: Veloz-scale and color Doppler images were attempted of the lower saphenofemoral junction, common femoral vein,superficial femoral vein, proximal deep femoral vein, proximal deep femoral vein, popliteal vein and posterior tibial veins. Findings: Deep Venous System:There is thrombus with diminished flow in the left posterior tibial vein, the remaining visualized deep venous system is unremarkable, the distal superficial femoral vein and peroneal veins were not well evaluated. Superficial Venous SystemNo superficial thrombophlebitis. Soft tissues: Soft tissues are unremarkable. Impression: Posterior tibial vein thrombus. Reviewed, dictated and finalized at location P. Impression: Posterior tibial vein thrombus.
[2025-03-20 16:06] VITALS: BP 146/79; PULSE 98; RESP 18; TEMP 36.9; O2SAT 94
--- OUTSIDE RECORDS SUMMARY | 2025-03-20 16:17 | XMS_ITS | Encounter Summary ---
Author Organization [facility] Healthcare Address [address] [place] [address] Care Team Providers Care Knitting Machine Operator Helper Name Role Phone Kishore Rosario DO Primary Care Provider [phone] Shahzad Paiz MD Unavailable [phone] Marlen Higgins MD Unavailable [phone] Demetrio Klein MD Unavailable [phone] Encounter Details Date Type Department Care Team (Late st Contact Info) Description 07/13/2023 Telephone [facility] at [facility] [address] [facility] [address] [place], [place] [id number] Demetrio Klein MD [address] [place] [address] [address] [facility] [address] [place] [address] Social History Tobacco Use Types Packs/Day Years Used Date Smoking Tobacco: Never Smokeless Tobacco: Never Alcohol Use Standard Drinks/Week Comments Yes 0 (1 standard drink = 0.6 oz pur e alcohol) Social Connection and Isolation Panel Answer Date Recorded In a typical week, how many times do you talk on the phone with family, friends, or neighbors? More than three times a week 12/25/2022 How often do you get togethe r with friends or relatives? Three times a week 12/25/2022 How often do you attend chur ch or hoahaoism services? 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 Gender Identity Not on file Sexual Orientation Not on file documented as of this encounter Plan of Treatment Upcoming Encounters Date Type Department Care Team (Latest Contact Info) Description 03/27/2025 12:00 PM CDT Hospital Encounter [facility] [employer] [address] [place] [id number] Demetrio Klein MD [address] [facility] [facility] [place] [address] ESRD (end stage renal disease) on dialysis (HCC) 03/27/2025 12:00 PM CDT - 03/27/2025 12:50 PM CDT Surgery [facility] [employer] [address] [place] [id number] Demetrio Klein MD [address] [place] [facility] [place] [address] Dialysis Circuit Angiogram documented as of this encounter Visit Diagnoses Not on filedocumented in this encounter Care Teams Knitting Machine Operator Helper Relationship Specialty Start Date End Date Kishore Rosario DO PCP - General Internal Medicine 04/13/17 Shahzad Paiz MD Referring Physician Nephrology 01/31/22 Marlen Higgins MD Consulting Physician Cardiology 01/31/22 Demetrio Klein MD [address] [place] [address] [address] [place] [address] [address] Surgeon Surgery 03/26/22 Dr Reba Diez [place], [place] Endocrinology 01/31/22 documented as of this encounter
--- OUTSIDE RECORDS SUMMARY | 2025-03-20 16:17 | XMS_ITS | Encounter Summary ---
Author Organization [facility] Healthcare Address [address] [place] [address] Care Team Providers Care Vegetable Grower Name Role Phone Kishore Rosario DO Primary Care Provider [phone] Shahzad Paiz MD Unavailable [phone] Marlen Higgins MD Unavailable [phone] Demetrio Klein MD Unavailable [phone] Encounter Details Date Type Department Care Team (Late st Contact Info) Description 01/14/[address] [address] Jess Acosta Social History Tobacco Use Types [...] How often do you attend chur or roman catholic services? More than 4 times per year 12/25/2022 Do you belong to any clubs o r organizations such as gnosticism groups, unions, fraternal or athletic groups, or [...] place to sleep or slept in a fdc (including now)? 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 Gender Identity Not on file Sexual Orientation Not on file documented as of this encounter Plan of Treatment Upcoming Encounters Date Type Department Care Team (Latest Contact Info) Description 03/27/2025 12:00 PM CDT Hospital Encounter [facility] Cardiac Costume Rental Clerk [address] [place] [address] Demetrio Klein MD [address] [facility] [address] [facility] [place] [address] ESRD (end stage renal disease) on dialysis (HCC) 03/27/2025 12:00 PM CDT - 03/27/2025 12:50 PM CDT Surgery [facility] Cardiac Costume Rental Clerk [address] [place] [address] Demetrio Klein MD [address] [facility] [address] [facility] [place] [address] Dialysis Circuit Angiogram documented as of this encounter Visit Diagnoses Not on filedocumented in this encounter Care Teams Vegetable Grower Relationship Specialty Start Date End Date Kishore Rosario DO PCP - General Internal Medicine 04/13/17 Shahzad Paiz MD Referring Physician Nephrology 01/31/22 Marlen Higgins MD Consulting Physician Cardiology 01/31/22 Demetrio Klein MD [address] [facility] [address] [place] [address] [facility] [place] [address] Surgeon Surgery 03/26/22 Dr Reba Diez [place], [place] Endocrinology 01/31/22 documented as of this encounter
--- OUTSIDE RECORDS SUMMARY | 2025-03-20 16:17 | XMS_ITS | Clinical Summary ---
Author Organization [facility] Address [address] [place] [address] Phone Care Team Providers Care Hotshot Superintendent Name Role Phone ElizabethKishore gonzalez Primary Care Provider [phone] Allergies Active Allergy Reactions Criticality Noted Date [...] clopidogrel (PLAVIX) 75 MG tablet 1 Active [place]-3 Fatty Acids (RA Fish Oil) 1000 MG [...] on file Legal Sex Male 8:44 AM [facility] Gender Identity Not on file Sexual [...] Insurance [employer] PM INTERFACED INSURANCE Care Teams Hotshot Superintendent Relationship Specialty Start Date End Date Kishore Rosario DO [address] [place] [address] PCP - General Internal Medicine 01/19/19
--- OUTSIDE RECORDS SUMMARY | 2025-03-20 16:17 | XMS_ITS | Encounter Summary ---
Author Organization [facility] Address [address] [facility] [address] [place] [address] Care Team Providers Care Soap Drier Operator Name Role Phone Deedee Jarrett MD Primary Care Provider Deedee Jarrett MD Primary Care Provider Kishoer Rosario DO Primary Care Provider [phone] Shahzad Paiz MD Unavailable [phone] Marlen Higgins MD Unavailable [phone] Demetrio Klein MD Unavailable [phone] Encounter Details Date Type Department Care Team (Late st Contact Info) Description 08/13/2016 Orders Only [facility] Provider, MD Daniel [address] [place] [address] Social History Tobacco Use Types Packs/Day Years Used Date Smoking Tobacco: Never Alcohol Use Standard Drinks/Week Comments Yes 0 (1 standard drink = 0.6 oz pur e alcohol) Sex and Gender Information Value Date Recorded Sex Assigned at Not on file 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 Gender Identity Not on file Sexual Orientation Not on file documented as of this encounter Plan of Treatment Upcoming Encounters Date Type Department Care Team (Latest Contact Info) Description 03/27/2025 12:00 PM CDT Hospital Encounter [facility] Cardiac Dermatology Nurse [address] [place] [address] Demetrio Klein MD [address] [facility] [address] [facility] [place] [address] ESRD (end stage renal disease) on dialysis (HCC) 03/27/2025 12:00 PM CDT - 03/27/2025 12:50 PM CDT Surgery [facility] Cardiac Dermatology Nurse [address] [place] [address] Demetrio Klein MD [address] [facility] [address] [place] [address] [place] [address] Dialysis Circuit Angiogram documented as of this encounter Procedures Procedure Name Priority Date/Time Associated Diagnosis Comments CARDIOLOGY REPORT 08/13/2016 documented in this encounter Results * CARDIOLOGY REPORT (08/13/2016) Anatomical Region Laterality Modality Other Narrative 08/13/2016 Ordered by an unspecified provider. us Historical Provider [facility] KAREL WINN Final Result documented in this encounter Visit Diagnoses Not on filedocumented in this encounter Care Teams Soap Drier Operator Relationship Specialty Start Date End Date Deedee Jarrett MD [address] [address] PCP - General 09/12/16 04/12/17 Deedee Jarrett MD [address] [address] PCP - General 02/16/13 09/11/16 Kishore Rosario DO [address] [address] PCP - General Internal Medicine 04/13/17 Shahzad Paiz MD [address] [facility] [address] [place] [address] Referring Physician Nephrology 01/31/22 Marlen Higgins MD [address] [address] Consulting Physician Cardiology 01/31/22 Demetrio Klein MD [address] [facility] [address] [place] [address] [facility] [address] [place] [address] Surgeon Surgery 03/26/22 Dr Reba Diez [place], [place] Endocrinology 01/31/22 documented as of this encounter
--- OUTSIDE RECORDS SUMMARY | 2025-03-20 16:17 | XMS_ITS | Encounter Summary ---
Author Organization [facility] Address [address] [facility] [address] [place] [address] Care Team Providers Care Franchise Broker Name Role Phone Deedee Jarrett MD Primary Care Provider Deedee Jarrett MD Primary Care Provider Kishore Rosario DO Primary Care Provider [phone] Shahzad Paiz MD Unavailable [phone] Marlen Higgins MD Unavailable [phone] Demetrio Klein MD Unavailable [phone] Encounter Details Date Type Department Care Team (Late st Contact Info) Description 08/08/2016 Orders Only [facility] Provider, MD Daniel [address] [place] [address] Social History Tobacco Use Types Packs/Day Years Used Date Smoking Tobacco: Never Alcohol Use Standard Drinks/Week Comments Yes 0 (1 standard drink = 0.6 oz pur e alcohol) Sex and Gender Information Value Date Recorded Sex Assigned at Not on file 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 Cardiac Crime Scene Examiner [address] [place] [address] Demetrio Klein MD [address] [facility] [address] [place] [address] ESRD (end stage renal disease) on dialysis (HCC) 03/27/2025 12:00 PM CDT - 03/27/2025 12:50 PM CDT Surgery [facility] Cardiac Crime Scene Examiner [address] [place] [address] Demetrio Klein MD [address] [facility] [address] [place] [address] [place] [address] Dialysis Circuit Angiogram documented as of this encounter Procedures Procedure Name Priority Date/Time Associated Diagnosis Comments CARDIOLOGY REPORT 08/08/2016 CARDIOLOGY REPORT 08/08/2016 documented in this encounter Results * CARDIOLOGY REPORT (08/08/2016) Anatomical Region Laterality Modality Other Narrative 08/08/2016 Ordered by an unspecified provider. Historical Provider [facility] PROCE DURES Final Result * CARDIOLOGY REPORT (08/08/2016) Anatomical Region Laterality Modality Other Narrative 08/08/2016 Ordered by an unspecified provider. Historical Provider [facility] PROCE DURES Final Result documented in this encounter Visit Diagnoses Not on filedocumented in this encounter Care Teams Franchise Broker Relationship Specialty Start Date End Date Deedee Jarrett MD [address] [place] [address] PCP - General 09/12/16 04/12/17 Deedee Jarrett MD [address] [place] [address] PCP - General 02/16/13 09/11/16 Kishore Rosario DO [address] [address] PCP - General Internal Medicine 04/13/17 Shahzad Paiz MD [address] [address] Referring Physician Nephrology 01/31/22 Marlen Higgins MD [address] [place] [address] Consulting Physician Cardiology 01/31/22 Demetrio Klein MD [address] [facility] [address] [place] [address] [facility] [address] [place] [address] Surgeon Surgery 03/26/22 Dr Reba Diez [place], [place] Endocrinology 01/31/22 documented as of this encounter
--- OUTSIDE RECORDS SUMMARY | 2025-03-20 16:17 | XMS_ITS ---
Author Organization [facility] [address] Address [address] [place] [address] Care Team Providers Care Tug Boat Engineer Name Role Phone Kishore Rosario DO Primary Care Provider [phone] Shahzad Paiz MD Unavailable [phone] Marlen Higgins MD Unavailable [phone] Demetrio Klein MD Unavailable [phone] Dialysis Access Sites Type Status Location Placement Date Removal Da te AV fistula Active Right Antecubital Fossa 10/24/2021 Procedures Procedure Name Priority Date/Time Associated Diagnosis Comments US HEMODIALYSIS ACCESS Schedule Routine, Read Routine (OP Routine) 03/08/2025 10:09 AM CDT ESRD (end stage renal disease) on dialysis (HCC) EGFR STAT 11/09/2024 10:12 AM CDT POCT LIPID PANEL Routine 10/07/2024 10:19 AM CDT 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 [...] cindi (Epogen) 10,000 unit/mL injection Inject 1 mL(75990 units subcutaneously) Thursday, Thursday and Thursday as [...] (PLAVIX) 75 mg tabletIndications:C oronary arteriosclerosis in kar[place] artery TAKE 1 TABLET DAILY 90 tablet [...] disease) on dialysis 03/16 Assessment & Plan (03/08/2025 1:58 PM CDT): Right brachiocephalic AV fistula functioning well for dialysis. Noninvasive testing performed today reveals increased velocity right cephalic stent associated with a venous outflow stenosis. Will proceed with right arm AV fistulogram with possible intervention. Risks of the procedure including not limited to bleeding, infection, nerve injury, fistula compromise, communicated to the patient with full understanding. He wishes to proceed Assessment & Plan (12/02/2024 12:21 PM CDT): [...] proceed. Assessment & Plan (06/17/2024 12:05 PM TELEGRAPH INSPECTOR): Current AV duplex shows an outflow stenosis [...] dialysis. 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 Vent lead is off-Bill Single Pm. 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 SHAKEEL to th prox LAD Jul 2016. 3 hour episode of chest pain after some physical work a few days ago with no recurrence, probably an anginal episode, doubt ACS Assessment & Plan (12/08/2016 3:42 PM CDT): 2013: CARRIER BLOWER RCA, collateralized. SHAKEEL to th prox LAD [...] carvedilol Assessment & Plan (06/17/2024 12:04 PM TELEGRAPH INSPECTOR): Continue amlodipine and carvedilol Assessment & Plan (02/29/2024 11:42 AM CDT): Impression: Chronic and stable. Plan: Continue losartan carvedilol and isosorbide Assessment & Plan (04/13/2023 12:05 PM CDT): Impression: Chronic and stable. Plan: Continue losartan, carvedilol, isosorbide Assessment & Plan (03/16/2023 11:11 AM CDT): Continue losartan, carvedilol, isosorbide Assessment & Plan (09/04/2022 12:49 PM CDT): Carvedilol Assessment & Plan (07/28/2022 2:57 PM TELEGRAPH INSPECTOR): Carvedilol Assessment & Plan (03/24/2022 10:52 AM [...] insulin Assessment & Plan (06/17/2024 12:04 PM TELEGRAPH INSPECTOR): Continue insulin Assessment & Plan (02/29/2024 11:42 [...] Right AKA healed. Can continue working with Billing Manager Prosthetics. Follow up p.r.n.. Hyperphosphatemia History of [...] week 12/25/2022 How often do you attend [facility] or islam services? More than 4 times per year 12/25/2022 Do you belong to any clubs o r organizations such as pentecostalism groups, unions, fraternal or athletic groups, or [...] on file Legal Sex Male 2:10 AM TELEGRAPH INSPECTOR Gender Identity Not on file Sexual Orientation Not on file Last Filed Vital Signs Vital Sign Reading Time Taken Comments Blood Pressure 143/80 03/08/2025 9:35 AM CDT Pulse 74 03/08/2025 9:35 AM CDT Temperature 36.7 C (98.1 F) 03/08/2025 9:35 AM CDT Respiratory Rate 16 11/09/2024 1:15 PM CDT Oxygen Saturation 96% 03/08/2025 9:35 AM CDT Inhaled Oxygen Concentration - - Weight 88.5 kg (195 lb) 12/06/2024 10:14 AM CDT Height 180.3 cm (5' 11) 12/06/2024 10:14 AM CDT Body Mass Index 27.2 12/06/2024 10:14 AM CDT Results * US Hemodialysis Access (03/08/2025 10:09 AM CDT) Anatomical Region Laterality Modality Vascular N/A Ultrasound 03/08/2025 8:34 AM CDT Narrative 03/08/2025 1:19 PM CDT Hemodialysis Access Duplex Report Patient Name: KYLER DU E : 1955 (69y 5m) Sex: M Study Date: 03/08/2025 08:34:03 AM Extrusion Manager: SHILO MCALLISTER Provider: DEMETRIO KLEIN Ref Provider: DEMETRIO KLEIN PROCEDURES: Vascular Report: Color Duplex ultrasound with velocity measurements was performed of the arteriovenous fistula in the right upper extremity. A non-invasive vascular imaging study of the right upper extremity dialysis access and stent was performed using B- mode ultrasound, color flow, and spectral Doppler. INDICATIONS: Dialysis graft complication. HISTORY: The patient had a previous vascular surgery on S/p stent rt avf, ba rt ceph v archand dcba rt SCV 11/09/24. COMPARISONS: The previous exam was completed on 12/02/24. AVF: Vessel Velocity Rt Location Brachiocephalic Rt [place] Artery 379.00 cm/sec Rt Arterial Anast 760.00 cm/sec Rt Prx AVF 71.00 cm/sec Rt Mid AVF 92.00 cm/sec Rt [place] Artery VF 1363.00 mL/min Rt Mid AVF VF 1295.00 mL/min STENT MEASUREMENTS: Right Velocity Location Prox AVF Rt Stent Prx PSV 182.00 cm/sec Rt Stent Mid PSV 132.00 cm/sec Rt Stent Dst PSV 97.00 cm/sec Location 2 Ceph arch Rt Stent 2 Prx [place] PSV 93.00 cm/sec Rt Stent 2 Prx PSV 425.00 cm/sec Rt Stent 2 Mid PSV 422.00 cm/sec Rt Stent 2 Dst PSV 310.00 cm/sec Rt Stent 2 Dst [place] PSV 306.00 cm/sec FINDINGS: Study Quality: The study quality is adequate. Stent: The stent is located in the ceph arch. Increased velocities throughout the stent. CONCLUSIONS: 1. There is venous outflow stenosis above the AV fistula/graft. Electronically Signed By: Demetrio Klein MD 03/08/2025 12:14:18 PM CDT Procedure Note Demetrio Klein MD - 03/08/2025 Hemodialysis Access Duplex Report Patient Name: KYLER DU E : 1955 (69y 5m) Sex: M Study Date: 03/08/2025 08:34:03 AM Extrusion Manager: SHILO MCALLISTER Provider: DEMETRIO KLEIN Provider: DEMETRIO KLEIN PROCEDURES: Vascular Report: Color Duplex ultrasound with velocity measurements wasperformed of the arteriovenous fistula in the right upper extremity. A non-invasivevascular imaging study of the right upper extremity dialysis access and stent was performed usingB-mode ultrasound, color flow, and spectral Doppler. INDICATIONS: Dialysis graft complication. HISTORY: The patient had a previous vascular surgery on S/p stent rt avf, ba rtceph v archand dcba rt SCV 11/09/24. COMPARISONS: The previous exam was completed on 12/02/24. AVF: Vessel Velocity Rt Location Brachiocephalic Rt [place] Artery 379.00 cm/sec Rt Arterial Anast 760.00 cm/sec Rt Prx AVF 71.00 cm/sec Rt Mid AVF 92.00 cm/sec Rt [place] Artery VF 1363.00 mL/min Rt Mid AVF VF 1295.00 mL/min STENT MEASUREMENTS: Right Velocity Location Prox AVF Rt Stent Prx PSV 182.00 cm/sec Rt Stent Mid PSV 132.00 cm/sec Rt Stent Dst PSV 97.00 cm/sec Location 2 Ceph arch Rt Stent 2 Prx [place] PSV 93.00 cm/sec Rt Stent 2 Prx PSV 425.00 cm/sec Rt Stent 2 Mid PSV 422.00 cm/sec Rt Stent 2 Dst PSV 310.00 cm/sec Rt Stent 2 Dst [place] PSV 306.00 cm/sec FINDINGS: Study Quality: The study quality is adequate. Stent: The stent is located in the ceph arch. Increased velocitiesthroughout the stent. CONCLUSIONS: 1. There is venous outflow stenosis above the AV fistula/graft. Electronically Signed By: Demetrio Klein MD 03/08/2025 12:14:18 PM CDT us Demetrio Klein MD [facility] US PROCEDURES Final Re sult * (ABNORMAL) eGFR (11/09/2024 10:12 AM CDT) [...] MD LAB BLOOD ORDERABLES Final Result TOMY [address] [facility] Department [place] [address] * POCT lipid panel (10/07/2024 10:19 AM CDT) Pathologist [facility] Cholesterol, POC <100 mg/dL HDL, POC 32 [...] and children were not included. (Diabetes Care 31:5414-5423, 2008). The eAG is not equivalent to a fasting glucose. Blood 12/24/2022 3:12 PM CDT 12/24/2022 3:26 PM CDT Kaley Wray NP LAB BLOOD ORDERABLES Final Re sult LEONARDVAZ [address] [facility] Department [place] [address] from Last 3 Months or Most Recently Relevant to Health Maintenance
--- OUTSIDE RECORDS SUMMARY | 2025-03-20 16:17 | XMS_ITS | Encounter Summary ---
Author Organization [facility] Address [address] [facility] [address] [place] [address] Care Team Providers Care Perch Machine Inspector Name Role Phone Deedee Jarrett MD Primary Care Provider Kishore Rosario DO Primary Care Provider + [phone] Shahzad Paiz MD Unavailable [phone] Marlen Higgins MD Unavailable [phone] Demetrio Klein MD Unavailable [phone] Encounter Details Date Type Department Care Team (Late st Contact Info) Description 10/29/2016 Orders Only [facility] Provider, MD Daniel [address] [place] [address] Social History Tobacco Use Types Packs/Day Years Used Date Smoking Tobacco: Never Alcohol Use Standard Drinks/Week Comments Yes 0 (1 standard drink = 0.6 oz pur e alcohol) Sex and Gender Information Value Date Recorded Sex Assigned at Not on file Legal Sex Male 2:10 AM DAG SPRAYER Gender Identity Not on file Sexual Orientation Not on file documented as of this encounter Plan of Treatment Upcoming Encounters Date Type Department Care Team (Latest Contact Info) Description 03/27/2025 12:00 PM CDT Hospital Encounter [facility] Cardiac Regulatory Administrator [address] [place] [address] Demetrio Klein MD [address] [facility] [address] [place] [address] [place] [address] ESRD (end stage renal disease) on dialysis (HCC) 03/27/2025 12:00 PM CDT - 03/27/2025 12:50 PM CDT Surgery [facility] Cardiac Regulatory Administrator [address] [place] [address] Demetrio Klein MD [address] [facility] [facility] [address] [place] [address] Dialysis Circuit Angiogram documented as of this [...] on filedocumented in this encounter Care Teams Perch Machine Inspector Relationship Specialty Start Date End Date Deedee Jarrett MD [address] [facility] [address] [place] [address] PCP - General 09/12/16 04/12/17 Kishore Rosario DO [address] [address] PCP - General Internal Medicine 04/13/17 Shahzad Paiz MD [address] [facility] [address] [address] Referring Physician Nephrology 01/31/22 Marlne Higgins MD [address] [address] Consulting Physician Cardiology 01/31/22 Demetrio Klein MD [address] [facility] [address] [place] [address] [place] [address] Surgeon Surgery 03/26/22 Dr Reba Diez [place], [place] Endocrinology 01/31/22 documented as of this encounter
--- OUTSIDE RECORDS SUMMARY | 2025-03-20 16:17 | XMS_ITS | Encounter Summary ---
Author Organization [facility] Healthcare Address [address] [place] [address] Care Team Providers Care Senior Interactive Producer Name Role Phone Kishore Rosario DO Primary Care Provider +- [phone] Shahzad Paiz MD Unavailable [phone] Marlen Higgins MD Unavailable [phone] Demetrio Klein MD Unavailable [phone] Encounter Details Date Type Department Care Team (Late st Contact Info) Description 03/18/2023 [facility]phone [facility] [address] [facility] [address] [place] [address] Reece Klein MD [address] [place] [address] [address] [place], [place] [id number] Social History Tobacco Use Types Packs/Day Years [...] week 12/25/2022 How often do you attend [facility] or anabaptist services? More than 4 times per year 12/25/2022 Do you belong to any clubs o r organizations such as jain groups, unions, fraternal or athletic groups, or [...] place to sleep or slept in a usp (including now)? No 12/25/2022 Sex and Gender Information Value Date Recorded Sex Assigned at Not on file Legal Sex Male 2:10 AM MATTRESS STRIPPER Gender Identity Not on file Sexual Orientation Not on file documented as of this encounter Plan of Treatment Upcoming Encounters Date Type Department Care Team (Latest Contact Info) Description 03/27/2025 12:00 PM CDT Hospital Encounter [facility] Cardiac Ceramic Tiler [address] [place] [address] Demetrio Klein MD [address] [facility] [address] [address] ESRD (end stage renal disease) on dialysis (HCC) 03/27/2025 12:00 PM CDT - 03/27/2025 12:50 PM CDT Surgery [facility] Cardiac Ceramic Tiler [facility] [place] [address] Demetrio Klein MD [address] [facility] [address] [address] Dialysis Circuit Angiogram documented as of this encounter Visit Diagnoses Not on filedocumented in this encounter Care Teams Senior Interactive Producer Relationship Specialty Start Date End Date Kishore Rosario DO PCP - General Internal Medicine 04/13/17 Shahzad Paiz MD Referring Physician Nephrology 01/31/22 Marlen Higgins MD Consulting Physician Cardiology 01/31/22 Demetrio Klein MD [address] [facility] [address] [place] [address] Surgeon Surgery 03/26/22 Dr Reba Diez [place], [place] Endocrinology 01/31/22 documented as of this encounter
--- OUTSIDE RECORDS SUMMARY | 2025-03-20 16:17 | XMS_ITS | Patient Health Record ---
Author Organization [facility] Address [address] [place], [place] [address] Care Team Providers Care Traveling Freight Agent Name Role Phone JOHNNA LR Unavailable [phone] Kishore Rosario Unavailable Unavailable DANYELLE BOND Unavailable [phone] Allergies Allergen (clinical drug ingredient) Drug/Non Drug Allergy documented on EMR Reaction Allergy Type Onset Date Status Iodine Hives Drug Allergy 12/30/2019 Active lisinopril Lisinopril Cough Drug Allergy 04/14/2021 Acti ve Reason For Referral No Information Medications Medication SIG (Take, Route, Frequency, Duration) Notes Start Date End Date Status amLODIPine Besylate 5 MG Oral; Duration: 90 [...] % Ophthalmic; Dur ation: 25 Days Active Clopidogrel Bisulfate 75 MG Oral; Duration: 90 Days Acti ve Atorvastatin Calcium 80 MG Oral; Duration: 90 Days Acti ve Immunizations Vaccine Route Administration Date Status Comme [...] Adminis tered Vital Signs Height-cm 182.88 cm 03/01/2025 Weight-kg 95.26 kg 03/01/2025 Height 72.00 in 03/01/2025 Weight 210 lbs 03/01/2025 BMI 28.48 kg/m2 03/01/2025 Procedures Procedure Date Ordered Date Performed Result Body Sit e PHYSICAL THERAPY 10/18/2024 N/A Encounters Encounter Location Date Provider Diagnosis [facility] [place] [address] [place] [address] [id number] 07/18/2024 JOHNNA SNOOK Pain in left toe(s) M79.675 ; Tinea unguium B35.1 ; Type 2 diabetes mellitus with other circulatory complications E11.59 ; Type 2 diabetes mellitus with other diabetic neurological complication E11.49 and Plantar fascial fibromatosis M72.2 [facility] [address] [place] [address] [place] [address] [id number] 10/05/2024 DANYELLE BOND Achilles tendinitis, left leg M76.62 ; Plantar fascial fibromatosis M72.2 ; Type 2 diabetes mellitus with other circulatory complications E11.59 ; Atherosclerosis of [place] arteries of extremities with intermittent claudication, bilateral legs I70.213 ; Difficulty in walking R26.2 ; Edema of foot R60.0 and Left foot pain M79.672 [facility] [place] [address] [place] [address] [id number] 10/12/2024 DANYELLE BOND Type 2 diabetes mellitus with other circulatory complications E11.59 ; Plantar fascial fibromatosis M72.2 ; Localized edema R60.0 ; Achilles tendinitis, left leg M76.62 and Pain in left foot M79.672 [facility] [place] [address] [place] [address] [id number] 10/26/2024 DANYELLE BOND Plantar fascial fibromatosis M72.2 ; Achilles tendinitis, left leg M76.62 ; Localized edema R60.0 ; Type 2 diabetes mellitus with other circulatory complications E11.59 and Pain in left foot M79.672 [facility] [place] [address] [place] [address] [place] [address] [id number] 03/01/2025 DANYELLE VARUN Type 2 diabetes mellitus with other circulatory complications E11.59 ; Plantar fascial fibromatosis M72.2 ; Type 2 diabetes mellitus with other diabetic neurological complication E11.49 and Posterior tibial tendinitis, left leg M76.822 [facility] [place] [address] [place] [address] [place] [address] [id number] 04/18/2024 JOHNNA SNOOK Pain in left toe(s) M79.675 ; Tinea unguium B35.1 ; Type 2 diabetes mellitus with other circulatory complications E11.59 and Type 2 diabetes mellitus with other diabetic neurological complication E11.49 [facility] [place] [address] [place] [address] [place] [address] [id number] 08/22/2024 JOHNNA SNOOK Type 2 diabetes mellitus with other circulatory complications E11.59 ; Plantar fascial fibromatosis M72.2 and Type 2 diabetes mellitus with other diabetic neurological complication E11.49 [facility] [place] [address] [place] [address] [place] [address] [id number] 11/14/2024 JOHNNA SNOOK Type 2 diabetes mellitus with other circulatory complications E11.59 ; Plantar fascial fibromatosis M72.2 ; Type 2 diabetes mellitus with other diabetic neurological complication E11.49 and Posterior tibial tendinitis, left leg M76.822 [facility] [place] [address] [place] [address] [place] [address] [id number] 10/27/2024 JOHNNA SNOOK Assessments Encounter Date Diagnosis (ICD Code) Assessment Notes Treatment Notes Treatment Clinical Notes Section Notes 04/18/2024 Tinea unguium (ICD-10 - B35.1) FUNGAL [...] begin in home P.T. next week through [facility]. 11/14/2024 Type 2 diabetes mellitus with other [...] other diabetic neurological complication (ICD-10 - E11.49) 10/26/2024 Localized edema (ICD-10 - R60.0) An [...] with other circulatory complications (ICD-10 - E11.59) 07/18/2024 Type 2 diabetes mellitus with other diabetic neurological complication (ICD-10 - E11.49) 04/18/2024 Type 2 diabetes mellitus with other diabetic neurological complication (ICD-10 - E11.49) 10/05/2024 Atherosclerosis of [place] arteries of extremities with intermittent claudication, bilateral [...] the use of orthotic devices and bracing. 03/01/2025 Posterior tibial tendinitis, left leg (ICD-10 [...] 10/18/2024 Next Appt Details Provider Name:DANYELLE ESQUIVEL, 06/07/2025 10:20:00 AM, [address], [facility], [place], [place], [id number], Insurance Providers Payer Name Payer Address Payer Phone Subscriber Number Group Number Insured Name Patient Relationship to Insured Coverage Start Date Coverage End Date [employer] [address] [place] [phone] [id number] KYLER DU Self - patient is the insured Medical (General) History Medical History History ICD Code iron deficiency anemia Heart Disease peripheral vascular disease anxiety Diabetic hypertension Surgical History Surgery Date(Month/Year) Pacemaker
--- OUTSIDE RECORDS SUMMARY | 2025-03-20 16:17 | XMS_ITS | Encounter Summary ---
Author Organization [facility] Address [address] [facility] [address] [place] [address] Care Team Providers Care Statistics Tutor Name Role Phone Deedee Jarrett MD Primary Care Provider Deedee Jarrett MD Primary Care Provider Kishore Rosario DO Primary Care Provider [phone] Shahzad Paiz MD Unavailable [phone] Marlen Higgins MD Unavailable [phone] Demetrio Klein MD Unavailable [phone] Encounter Details Date Type Department Care Team (Late st Contact Info) Description 07/28/2016 Orders Only [facility] Provider, MD Daniel [address] [place] [address] Social History Tobacco Use Types Packs/Day Years Used Date Smoking Tobacco: Never Alcohol Use Standard Drinks/Week Comments Yes 0 (1 standard drink = 0.6 oz pur e alcohol) Sex and Gender Information Value Date Recorded Sex Assigned at Not on file 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 Gender Identity Not on file Sexual Orientation Not on file documented as of this encounter Plan of Treatment Upcoming Encounters Date Type Department Care Team (Latest Contact Info) Description 03/27/2025 12:00 PM CDT Hospital Encounter [facility] Cardiac Book Author [address] [place] [address] Demetrio Klein MD [address] [facility] [address] [facility] [place] [address] ESRD (end stage renal disease) on dialysis (HCC) 03/27/2025 12:00 PM CDT - 03/27/2025 12:50 PM CDT Surgery [facility] Cardiac Book Author [address] [place] [address] Demetrio Klein MD [address] [facility] [address] [place] [address] [place] [address] Dialysis Circuit Angiogram documented as of this [...] on filedocumented in this encounter Care Teams Statistics Tutor Relationship Specialty Start Date End Date Deedee Jarrett MD [address] [address] PCP - General 09/12/16 04/12/17 Deedee Jarrett MD [address] [address] PCP - General 02/16/13 09/11/16 Kishore Rosario DO [address] [address] PCP - General Internal Medicine 04/13/17 Shhazad Paiz MD [address] [facility] [address] [place] [address] Referring Physician Nephrology 01/31/22 Marlen Higgins MD [address] [address] Consulting Physician Cardiology 01/31/22 Demetrio Klein MD [address] [facility] [address] [place] [address] [facility] [address] [place] [address] Surgeon Surgery 03/26/22 Dr Reba Diez [place], [place] Endocrinology 01/31/22 documented as of this encounter
--- OUTSIDE RECORDS SUMMARY | 2025-03-20 16:17 | XMS_ITS | Clinical Summary ---
Author Organization [facility] [address] Address [address] [place] [address] Care Team Providers Care Window Systems Administrator Name Role Phone Kishore Rosario DO Primary Care Provider [phone] Shahzad Paiz MD Unavailable [phone] Marlen Higgins MD Unavailable [phone] Demetrio Klein MD Unavailable [phone] Allergies Active Allergy Reactions Criticality Noted [...] 0.4 mg SL tabletIndications:C oronary arteriosclerosis in [place] artery Place 1 tablet (0.4 mg total) under the tongue every 5 (five) minutes as needed for chest pain 25 tablet 10/28/19 19 Active omega 6-yco-cjx-fish oil 100-160-1,000 mg capsule Take 1 capsule by mouth 2 (two) times a day Active albuterol 2.5 mg /3 mL (0.083 %) nebulizer solution Take 3 mL (2.5 mg total) by nebulization every 4 (four) hours as needed 10/16/19 22 Active flash glucose scanning reader (FreeStyle Lizeth 2 [place]) [facility] Use as directed to test blood sugars. [...] cindi (Epogen) 10,000 unit/mL injection Inject 1 mL(45747 units subcutaneously) Thursday, Thursday and Thursday as [...] (PLAVIX) 75 mg tabletIndications:C oronary arteriosclerosis in [place] artery TAKE 1 TABLET DAILY 90 tablet 2 10/25/19 25 Active carvediloL (COREG) 25 mg tablet Take 1 tablet (25 mg total) by mouth 2 (two) times a day with meals 180 tablet 3 10/28/19 25 Active TRESIBA 100 unit/mL (3 mL) pen for injection INJECT 25 UNITS SUBCUTANEOUSLY DAILY 10/08/19 Active Ozempic 1 mg/dose (4 mg/3 mL) pen injector injection INJECT 1MG SUBCUTANEOUSLY ONCE WEEKLY 10/18/19 Active prednisoLONE acetate (PRED FORTE) 1 % [...] proceed. Assessment & Plan (06/17/2024 12:05 PM REPORTER ANCHOR): Current AV duplex shows an outflow stenosis [...] dialysis. Assessment & Plan (07/14/2023 2:41 PM REPORTER ANCHOR): Will proceed with right upper extremity AV [...] a right lower extremity angiogram Atherosclerosis of [place] ar teries of right leg with ulceration [...] artery disease of n ative artery of [place] heart with stable angina pectoris 05/26/2016 Overview (2016): Coronary artery disease of [place] artery of [place] heart with stable angina pectoris Assessment & Plan (04/14/2017 9:29 PM CDT): 2013: WALL AND FLOOR TILER RCA, collateralized. SHAKEEL to th prox LAD Jul 2016. 3 hour episode of chest pain after some physical work a few days ago with no recurrence, probably an anginal episode, doubt ACS Assessment & Plan (12/08/2016 3:42 PM CDT): 2013: WALL AND FLOOR TILER RCA, collateralized. SHAKEEL to th prox LAD [...] carvedilol Assessment & Plan (06/17/2024 12:04 PM REPORTER ANCHOR): Continue amlodipine and carvedilol Assessment & Plan (02/29/2024 11:42 AM CDT): Impression: Chronic and stable. Plan: Continue losartan carvedilol and isosorbide Assessment & Plan (04/13/2023 12:05 PM CDT): Impression: Chronic and stable. Plan: Continue losartan, carvedilol, isosorbide Assessment & Plan (03/16/2023 11:11 AM CDT): Continue losartan, carvedilol, isosorbide Assessment & Plan (09/04/2022 12:49 PM CDT): Carvedilol Assessment & Plan (07/28/2022 2:57 PM REPORTER ANCHOR): Carvedilol Assessment & Plan (03/24/2022 10:52 AM [...] insulin Assessment & Plan (06/17/2024 12:04 PM REPORTER ANCHOR): Continue insulin Assessment & Plan (02/29/2024 11:42 [...] Right AKA healed. Can continue working with Director Private Prosthetics. Follow up p.r.n.. Hyperphosphatemia History of [...] (01/31/2022): Added automatically from request for surgery [id number] Assessment & Plan (03/16/2023 11:12 AM CDT): [...] scan Assessment & Plan (07/28/2022 2:57 PM REPORTER ANCHOR): Venous outflow stenosis seen on most recent [...] (10/18/2021): Added automatically from request for surgery [id number] Assessment & Plan (11/06/2021 12:29 PM CDT): [...] Lipitor Assessment & Plan (07/28/2022 2:57 PM REPORTER ANCHOR): Lipitor Assessment & Plan (04/14/2017 9:30 PM [...] Encounters Date Type Department Care Team Description 03/08/2025 8:25 AM CDT - 03/08/2025 11:59 PM CDT Hospital Encounter [facility] at [address] [place] [address] ESRD (end stage renal disease) on dialysis (HCC) (Primary Dx); Other complication of arteriovenous dialysis fistula, subsequent encounter; History of sick sinus syndrome Discharge Disposition: Discharge to home or self care 03/08/2025 8:24 AM CDT - 03/08/2025 11:59 PM CDT Hospital Encounter [facility] [address] [place] [address] [address] [place] [address] ESRD (end stage renal disease) on dialysis (HCC) Discharge Disposition: Discharge to home or self care 03/07/2025 Orders Only [facility] at [facility] [address] [facility] [address] [place] [address] Demetrio Klein MD Dependence on renal dialysis (Primary Dx); End stage renal disease; Other complication of arteriovenous dialysis fistula, initial encounter from Last 3 Months Immunizations Immunization Administration [...] PLACEMENT 01/03/2022 Right RIJ permacath inserted at [facility] (removed 03/26/22 - Dr. Demetrio Klein) AV [...] he art disease End stage renal disease 12/2021 E SRD - Dialysis - T//SAT - [facility] Rios. Small amount of urine. permacath to Right Chest. Hypotension on dialysis days . has to hold BP meds before dialysis Myocardial infarction ([facility]) 2003 Hypertension CHF (congestive heart failure) ([facility]) COPD (chronic obstructive pu lmonary disease) Covid 08/29/2021 hospitalized dc 09/04/2021 with oxygen Dizziness on standing Orthostatic hypotension Pneumonia due to COVID-19 virus 08/29/2021 Covid Pneumonia - hosp x 6 days. Oxygen support Chest pain 09/2021 has ntg Obesity Chronic pain disorder back/ankle s History of oxygen administration when dc'd from hospital with covid pneumonia Requires supplemental oxygen 1.5 -2L as needed. SSS (sick sinus syndrome) ([facility]) s/p pacemaker insertion in 1988. Replaced 2011 GERD (gastroesophageal reflux disease) takes protonix as needed. Anemia 2021 3 units of PRBC' s Type 2 diabetes mellitus IDDM Stroke ([facility]) x1 2017 - Right side numbess. 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 More than 4 times per year 12/25/2022 Do you belong to any clubs o r organizations such as tenriism groups, unions, fraternal or athletic groups, or [...] place to sleep or slept in a jail (including now)? No 12/25/2022 Personal Safety Answer Date Recorded Have you ever been in or are you currently in a harmful physical or emotional relationship or is someone making you feel afraid or unsafe? 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 Gender Identity Not on file Sexual Orientation [...] 12/06/2024 10:14 AM CDT Plan of Treatment Upcoming Encounters Date Type Department Care Team (Latest Contact Info) Description 03/27/2025 12:00 PM CDT Hospital Encounter [facility] Cardiac Associate Sales Manager [address] [place] [address] Demetrio Klein MD [facility] [facility] [address] [place] [facility] [place] [address] ESRD (end stage renal disease) on dialysis (HCC) 03/27/2025 12:00 PM CDT - 03/27/2025 12:50 PM CDT Surgery [facility] Cardiac Associate Sales Manager [facility] [place] [address] Demetrio Klein MD [address] [place] [address] Dialysis Circuit Angiogram Health Maintenance Due Date Last Done Comments Albumin Creatinine Ratio, Urine 1955 Colon Cancer Screening-Colonoscopy 1955 Depression Screening 1955 Hepatitis C Screening 1955 Dilated Eye Exam 1955 Foot Exam 1955 DTaP/Tdap/Td Vaccine (1 - Tdap) 1964 Lung Cancer Screening 09/20/2003 Zoster Vaccine (1 of 2) 09/20/2003 Well Visit 65+ 2018 Covid-19 Vaccine (3 - Pfizer risk series) 10/03/2020 09/05/2020, 08/15/2020 Pneumococcal vaccine 65+ (3 of 3 - PCV20 or PCV21) 08/09/2021 08/09/2016, 02/27/2011 Hemoglobin A1C 06/26/2023 12/24/2022 Influenza Vaccine (#1) 2025 , 03/22/2021, 03/11/2021, Additional history exists Lipid Panel 10/07/2025 10/07/2024, 02/14, 12/31/2022, Additional history exists Fall Risk Assessment 11/09/2025 11/09/2024 eGFR 11/09/2025 11/09/2024, 06/16, 07/17/2023, Additional history exists Hepatitis B Screening Completed 09/04/2022, 023 Medical Devices Implanted Type Area Manga Artist Device Identifier Shelf Expiration Date Model / Serial / Lot Intra Ocular Lens Lens Bilateral : Eye Pacemaker-2011 Medtronic Implanted:11/2011 (Quantity not on file) Pacemaker Chest Medtronic SSS ADAPTA [id number] / [id number] / CHRONIC LEADS 1988 Description:Ventricular lead is off Cardiac Stent -2016 Implanted:Qty: 1 Stent Heart [place] [facility] Covera 6mm 8fr 60mm 80cm Cover Helical Strut Thumbwheel [id number] - [id number] Implanted:Qty: 1 on 03/27/2023 by Reece Klein MD at [facility]ascular 05/09/2024 [id number] / / [id number] [place] Peripheral [facility] Covera 8mm 8fr 40mm 80cm Cover Helical Strut Thumbwheel [id number] - [id number] Implanted:Qty: 1 on 11/09/2024 by Demetrio Klein MD at [facility] 10/29/2025 [id number] / / [id number] Procedures Procedure Name Priority Date/Time Associated Diagnosis Comments US HEMODIALYSIS ACCESS Schedule Routine, Read Routine (OP Routine) 03/08/2025 10:09 AM CDT ESRD (end stage renal disease) on dialysis (HCC) EGFR STAT 11/09/2024 10:12 AM CDT POCT LIPID PANEL Routine 10/07/2024 10:19 AM CDT Coronary artery disease of [place] artery of [place] heart with stable angina pectoris (HCC) Mixed diabetic hyperlipidemia associated with type 2 diabetes mellitus (HCC) HEMOGLOBIN A1C Routine 12/24/2022 3:12 PM CDT from Last 3 Months or Most Recently Relevant to Health Maintenance Results * US Hemodialysis Access (03/08/2025 10:09 AM CDT) Anatomical Region Laterality Modality Vascular N/A Ultrasound 03/08/2025 8:34 AM CDT Narrative 03/08/2025 1:19 PM CDT Hemodialysis Access Duplex Report Patient Name: KYLER DU E : 1955 (69y 5m) Sex: M Study Date: 03/08/2025 08:34:03 AM English Composition Teacher: SHILO MCALLISTER Provider: DEMETRIO KLEIN Ref Provider: [...] AVF: Vessel Velocity Rt Location Brachiocephalic Rt [place] Artery 379.00 cm/sec Rt Arterial Anast 760.00 cm/sec Rt Prx AVF 71.00 cm/sec Rt Mid AVF 92.00 cm/sec Rt [place] Artery VF 1363.00 mL/min Rt Mid AVF VF 1295.00 mL/min STENT MEASUREMENTS: Right Velocity Location Prox AVF Rt Stent Prx PSV 182.00 cm/sec Rt Stent Mid PSV 132.00 cm/sec Rt Stent Dst PSV 97.00 cm/sec Location 2 Ceph arch Rt Stent 2 Prx [place]iyot PSV 93.00 cm/sec Rt Stent 2 Prx PSV 425.00 cm/sec Rt Stent 2 Mid PSV 422.00 cm/sec Rt Stent 2 Dst PSV 310.00 cm/sec Rt Stent 2 Dst [place] PSV 306.00 cm/sec FINDINGS: Study Quality: The [...] Sex: M Study Date: 03/08/2025 08:34:03 AM English Composition Teacher: SHILO MCALLISTER Provider: DEMETRIO KLEIN Ref Provider: [...] AVF: Vessel Velocity Rt Location Brachiocephalic Rt [place] Artery 379.00 cm/sec Rt Arterial Anast 760.00 cm/sec Rt Prx AVF 71.00 cm/sec Rt Mid AVF 92.00 cm/sec Rt [place] Artery VF 1363.00 mL/min Rt Mid AVF VF 1295.00 mL/min STENT MEASUREMENTS: Right Velocity Location Prox AVF Rt Stent Prx PSV 182.00 cm/sec Rt Stent Mid PSV 132.00 cm/sec Rt Stent Dst PSV 97.00 cm/sec Location 2 Ceph arch Rt Stent 2 Prx [place]iyot PSV 93.00 cm/sec Rt Stent 2 Prx PSV 425.00 cm/sec Rt Stent 2 Mid PSV 422.00 cm/sec Rt Stent 2 Dst PSV 310.00 cm/sec Rt Stent 2 Dst Wiyot PSV 306.00 cm/sec FINDINGS: Study Quality: The study quality is adequate. Stent: The stent is located in the ceph arch. Increased velocitiesthroughout the stent. CONCLUSIONS: 1. There is venous outflow stenosis above the AV fistula/graft. Electronically Signed By: Demetrio Klein MD 03/08/2025 12:14:18 PM CDT Demetrio Klein MD IMG US PROCEDURES Final Re sult * (ABNORMAL) [...] MD LAB BLOOD ORDERABLES Final Result [facility] [address] [facility] Department [place] [address] * POCT lipid panel (10/07/2024 10:19 AM [...] and children were not included. (Diabetes Care 31:[id number], 2008). The eAG is not equivalent to a fasting glucose. Blood 12/24/2022 3:12 PM CDT 12/24/2022 3:26 PM CDT Kaley Wray NP LAB BLOOD ORDERABLES Final Re sult [facility] [address] [facility] Department [place] [address] from Last 3 Months or Most Recently Relevant to Health Maintenance Insurance AET MEDICARE AETNA MEDICARE AETNA MEDICARE [facility] MEDICARE Address: [address] [place] [address] Advance Directives For more information, please contact: [phone] Documents on File Type Date Recorded Patient Printer Slotter Feeder Expl anation ADVANCE DIRECTIVE 01/01/2023 3:43 PM Power of Specifications Writer-Medical * Full Code (Latest Code Status on File) Date Activated Date Inactivated Comments 07/04/2024 1:24 PM 07/04/2024 6:03 PM * Full Code Date Activated Date Inactivated Comments 03/27/2023 10:39 AM 03/27/2023 3:40 PM * Full Code Date Activated Date Inactivated Comments 12/24/2022 3:45 PM 01/12/2023 10:27 PM * Full Code Date Activated Date Inactivated Comments 08/18/2022 10:52 AM 08/18/2022 4:09 PM Care Teams Window Systems Administrator Relationship Specialty Start Date End Date Kishore Rosario DO PCP - General Internal Medicine 04/13/17 Shahzad Paiz MD Referring Physician Nephrology 01/31/22 Marlen Higgins MD Consulting Physician Cardiology 01/31/22 Demetrio Klein MD [address] [place] [address] [place] [address] Surgeon Surgery 03/26/22 Dr Reba Diez [place], [place] Endocrinology 01/31/22
--- OUTSIDE RECORDS SUMMARY | 2025-03-20 16:18 | XMS_ITS | Encounter Summary ---
Author Organization [facility] Healthcare Address [address] [place] [address] Care Team Providers Care Director International Name Role Phone Kishore Rosario DO Primary Care Provider +- [phone] Shahzad Paiz MD Unavailable [phone] Marlen Higgins MD Unavailable [phone] Demetrio Klein MD Unavailable [phone] Encounter Details Date Type Department Care Team (Late st Contact Info) Description 06/21/2024 Telephone [facility] Dialysis Access Center at [facility] [address] [facility] [facility] [address] [place] [address] Reece Klein MD [address] [place] [address] [address] [place], [place] [id number] Social History Tobacco Use Types Packs/Day Years [...] often do you attend chur ch or cheondoism services? More than 4 times per year 12/25/2022 Do you belong to any clubs o r organizations such as baptism groups, unions, fraternal or athletic groups, or [...] place to sleep or slept in a snf (including now)? No 12/25/2022 Personal Safety Answer Date Recorded Have you ever been in or are you currently in a harmful physical or emotional relationship or is someone making you feel afraid or unsafe? 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 Gender Identity Not on file Sexual Orientation Not on file documented as of this encounter Plan of Treatment Upcoming Encounters Date Type Department Care Team (Latest Contact Info) Description 03/27/2025 12:00 PM CDT Hospital Encounter [facility] Cardiac Bar Examiner [address] [place] [address] Demetrio Klein MD [address] [place] [address] [address] ESRD (end stage renal disease) on dialysis (HCC) 03/27/2025 12:00 PM CDT - 03/27/2025 12:50 PM CDT Surgery [facility] Cardiac Bar Examiner [address] [place] [address] Demetrio Klein MD [address] [place] [address] [address] Dialysis Circuit Angiogram documented as of this encounter Visit Diagnoses Not on filedocumented in this encounter Care Teams Director International Relationship Specialty Start Date End Date Kishore Rosario DO PCP - General Internal Medicine 04/13/17 Shahzad Paiz MD Referring Physician Nephrology 01/31/22 Marlen Higgins MD Consulting Physician Cardiology 01/31/22 Demetrio Klein MD [facility] [place] [address] [address] Surgeon Surgery 03/26/22 Dr Reba Diez [place], [place] Endocrinology 01/31/22 documented as of this encounter
--- OUTSIDE RECORDS SUMMARY | 2025-03-20 16:18 | XMS_ITS | Clinical Summary ---
Author Organization [facility] Address [address] [place] [address] Care Team Providers Care State Federal Relations Deputy Director Name Role Phone Kishore Rosario Primary Care [...] flash glucose scanning reader (FreeStyle Lizeth 2 [place]) [facility] Use as directed to test blood sugars. [...] Take 2.5 mg by mouth. Active omega 2-jvg-khe-fish oil 100-160-1,000 mg Capsule Take 1 Capsule [...] dinner. 60 Tablet 1 2 4:27 PM ROD DRAWER 04/17/20 22 Active irbesartan (AVAPRO) 150 mg tablet Take 1 Tablet (150 mg) by mouth daily in the morning. 90 Tablet 1 3 2:40 PM ROD DRAWER 05/20/20 22 Active neomycin-polymyx in-dexAMETHasone (Maxitrol) 3.5 mg/g-10,000 unit/g-0.1 % ointment APPLY 1/4 INCH RIBBON INTO BOTH EYES AT BEDTIME 3.5 Gram 3 3 10:11 AM ROD DRAWER 07/28/19 23 Active neomycin-polymyx in-dexAMETHasone (Maxitrol) 3.5mg/mL-10,000 unit/mL-0.1 % suspension ADMINISTER 1 DROP IN BOTH EYES TWICE A DAY 5 mL 3 3 10:11 AM ROD DRAWER 07/28/19 23 Active diphenhydrAMINE (BENADRYL) 25 mg capsule Take 2 capsules by mouth 1 hour prior to procedure as directed. 2 Capsule 3 10:08 AM ROD DRAWER 08/12/19 23 Active predniSONE (DELTASONE) 50 mg tablet Take 1 tablet by mouth 13 hours prior, 7 hours prior, and 1 hour prior to procedure. 3 Tablet 3 10:08 AM ROD DRAWER 08/12/19 23 Active furosemide (LASIX) 80 mg [...] meals. 270 Tablet 3 3 2:06 PM ROD DRAWER 02/26/20 Active predniSONE (DELTASONE) 50 mg tablet [...] daily. 90 Tablet 3 4 10:11 AM ROD DRAWER 05/12/20 23 Active atorvastatin (LIPITOR) 80 mg tablet Take 1 Tablet (80 mg) by mouth daily at bedtime. 30 Tablet 06/05/20 23 Active carvediloL (COREG) 12.5 mg tablet Take 2 Tablets (25 mg) by mouth 2 times daily. 60 Tablet 3 2:06 PM ROD DRAWER 06/05/20 23 Active diphenhydrAMINE (BENADRYL) 50 mg capsule Take 1 capsule by mouth 1 hour prior to procedure 1 Capsule 07/14/19 24 Active predniSONE (DELTASONE) 50 mg tablet Take 1 tablet by mouth 13 hours prior, 7 hours prior and 1 hour prior to procedure. 3 Tablet 4 2:53 PM ROD DRAWER 07/14/19 24 Active gabapentin (NEURONTIN) 100 mg [...] bedtime. 90 Capsule 3 5 12:51 PM ROD DRAWER 09/14/19 24 Active furosemide (LASIX) 80 mg tablet Take 1 Tablet (80 mg) by mouth daily. 90 Tablet 3 5 1:18 PM ROD DRAWER 12/10/19 24 Active ondansetron (ZOFRAN) 4 mg Tablet Take 1 tablet by mouth prior to dialysis as directed. 30 Tablet 4 5 12:51 PM ROD DRAWER 01/30/20 24 Active prednisoLONE acetate (Pred Forte) 1 % suspension INSTILL 1 DROP IN BOTH EYES TWICE A DAY FOR 2 WEEKS 10 mL 3 4 12:58 PM ROD DRAWER 03/28/20 24 Active amLODIPine (NORVASC) 5 mg [...] to procedure. 3 Tablet 5 2:10 PM ROD DRAWER 06/17/19 25 Active prednisoLONE acetate (Pred Forte) 1 % suspension Administer 1 drop in both eyes twice a day 15 mL 3 5 12:51 PM ROD DRAWER 08/05/19 25 Active ezetimibe (ZETIA) 10 mg [...] by mouth daily. 90 Tablet 1 5 1:08 PM CDT 11/29/19 25 Active atorvastatin (LIPITOR) 80 mg tablet Take 1 Tablet (80 mg) by mouth daily at bedtime. 90 Tablet 1 5 1:10 PM CDT 12/20/19 25 Active ondansetron (ZOFRAN) 4 mg Tablet Take 1 tablet by mouth daily prior to dialysis treatments 90 Tablet 3 5 12:21 PM CDT 12/30/19 25 Active neomycin-polymyx in-dexAMETHasone (Maxitrol) 3.5 mg/g-10,000 unit/g-0.1 % ointment Apply a 1/4 inch strip into both eyes at bedtime for 2 weeks and stop. 3.5 Gram 5 12:56 PM CDT 02/21/20 25 Active neomycin-polymyx in-dexAMETHasone (Maxitrol) 3.5mg/mL-10,000 unit/mL-0.1 % suspension Administer 1 drop in both eyes twice a day for 2 weeks and stop. 10 mL 3 5 12:56 PM CDT 02/21/20 25 Active cephALEXin (KEFLEX) 500 mg capsule Take 1 Capsule (500 mg) by mouth every 12 hours. ON DIALYSIS DAYS, GIVE FIRST DOSE AFTER DIALYSIS. 14 Capsule 5 1:08 PM CDT 02/25/20 25 Active Active Problems Problem Noted Date Diagnosed Date Anemia of chronic renal failure, stage 5 022 Iron deficiency anemia 12/13/2021 Encounters Date Type Department Care Team Description 03/07/2025 External Device Data ST[facility] ABSTRACTION Provider, Abstract 02/14/2025 External Device Data [facility] ABSTRACTION Provider, Abstract 02/01/2025 External Device Data [facility] ABSTRACTION Provider, Abstract 01/17/2025 External Device Data [facility] ABSTRACTION Provider, Abstract 12/28/2024 External Device Data [facility] ABSTRACTION Provider, [...] INFLUENZA VACCINE (#1) 2025 03/29/2021, 2018 Insurance [employer] PPO MCR RX [employer] (INTERNAL) [facility] RX [employer] Medicare Part D Care Teams State Federal Relations Deputy Director Relationship Specialty Start Date End Date Kishore Rosario DO [address] [address] PCP - General Internal Medicine 11/18/21
--- OUTSIDE RECORDS SUMMARY | 2025-03-20 16:18 | XMS_ITS | Encounter Summary ---
Author Organization [facility] Healthcare Address [address] [place] [address] Care Team Providers Care Public Speaking Coach Name Role Phone Kishore Rosario DO Primary Care Provider +- [phone] Shahzad Paiz MD Unavailable [phone] Marlen Higgins MD Unavailable [phone] Demetrio Klein MD Unavailable [phone] Encounter Details Date Type Department Care Team (Late st Contact Info) Description 03/25/2022 Telephone [facility] Dialysis Access Center at [facility] [address] [facility] [facility] [address] [place], [place] [id number] Demetrio Klein MD [address] [place] [address] [address] [facility] [address] [place] [address] Social History Tobacco Use Types Packs/Day Years [...] on file 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 Gender Identity Not on file Sexual Orientation Not on file documented as of this encounter Plan of Treatment Upcoming Encounters Date Type Department Care Team (Latest Contact Info) Description 03/27/2025 12:00 PM CDT Hospital Encounter [facility] Cardiac Lace Burn Out Tender [address] [place] [address] Demetrio Klein MD [address] [place] [facility] [place] [address] ESRD (end stage renal disease) on dialysis (HCC) 03/27/2025 12:00 PM CDT - 03/27/2025 12:50 PM CDT Surgery [facility] Cardiac Lace Burn Out Tender [address] [place] [address] Demetrio Klein MD [address] [place] [address] [address] Dialysis Circuit Angiogram documented as of this encounter Visit Diagnoses Not on filedocumented in this encounter Care Teams Public Speaking Coach Relationship Specialty Start Date End Date Kishore Rosario DO PCP - General Internal Medicine 04/13/17 Shahzad Paiz MD Referring Physician Nephrology 01/31/22 Marlen Higgins MD Consulting Physician Cardiology 01/31/22 Demetrio Klein MD [address] [place] [address] [address] [place] [address] [address] Surgeon Surgery 03/26[facility]22 [facility] [place] End[facility]ology 01/31/22 documented as of this encounter
--- OUTSIDE RECORDS SUMMARY | 2025-03-20 16:18 | XMS_ITS | Encounter Summary ---
Author Organization [facility] Healthcare Address [address] [place] [address] Care Team Providers Care Box Sealing Machine Catcher Name Role Phone Kishore Rosario DO Primary Care Provider [phone] Shahzad Paiz MD Unavailable [phone] Marlen Higgins MD Unavailable [phone] Demetrio Klein MD Unavailable [phone] Encounter Details Date Type Department Care Team (Late st Contact Info) Description 01/31/2022 Telephone [facility] D[facility] Center at [facility] [address] [facility] [facility] [address] [place] [address] Reece Klein MD [address] [place] [address] [address] [place] [address] Social History Tobacco Use Types Packs/Day Years [...] on file 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 Gender Identity Not on file Sexual Orientation Not on file documented as of this encounter Functional Status * AUDIT-C Score Answer Date of Assessment Author 0 [...] 03/27/2025 12:00 PM CDT Hospital Encounter [facility] Cardiac Hardware Installer [address] [place] [address] Demetrio Klein MD [address] [place] [address] [address] ESRD (end stage renal disease) on dialysis (HCC) 03/27/2025 12:00 PM CDT - 03/27/2025 12:50 PM CDT Surgery [facility] Cardiac Hardware Installer [address] [place] [address] Demetrio Klein MD [address] [place] [facility] [place] [address] Dialysis Circuit Angiogram documented as of this encounter Visit Diagnoses Not on filedocumented in this encounter Care Teams Box Sealing Machine Catcher Relationship Specialty Start Date End Date Kishore Rosario DO PCP - General Internal Medicine 04/13/17 Shahzad Paiz MD Referring Physician Nephrology 01/31/22 Marlen Higgins MD Consulting Physician Cardiology 01/31/22 Demetrio Klein MD [address] [place] [address] [place] [address] [place] [address] Surgeon Surgery 03/26/22 Dr Reba Diez [place], [place] Endocrinology 01/31/22 documented as of this encounter
--- NOTE | 2025-03-20 16:19 | ED_ITS ---
HPI - Extremity Problem General Chief complaint: Extremity Problem,Nontraumatic <Charlie Mustafa APRN - Last Filed: 03/20/25 16:21> Stated complaint: r/o dvt <Charlie Mustafa APRN - Last Filed: 03/20/25 16:21> Time Seen by Provider: 03/20/25 19:19 <Charlie Mustafa APRN - Last Filed: 03/20/25 16:21> Focused HPI: 69-year-old male history of right rpnbq-bjq-[id number] amputation presents ER complaining of left calf pain for 1 week. States he began experiencing pain while at physical therapy. Patient also notes swelling to the calf. No history of DVTs. GENERAL: Well-appearing, well-nourished, and in no acute distress. HEAD: Normocephalic, atraumatic. CHEST: Clear to auscultation. No respiratory distress. HEART: Regular rate and rhythm. NEURO: Alert and oriented x3. Patient screened in triage and initial orders placed. Additional care and disposition to be based upon diagnostic testing and treatment. <Charlie Mustafa APRN - Last Filed: 03/20/25 16:21> History of Present Illness HPI Narrative: Patient 69-year-old gentleman presents emergency department chief complaint of pain in the left calf for the last week. The patient reports that he had physical therapy and reports his leg was little swollen and tender the patient reports he has no prior history of DVT reports that he has end-stage renal disease on dialysis patient reports that he is scheduled to have a fistula procedure on Thursday. The patient denies chest pain denies shortness of breath <Chente Goddard MD - Last Filed: 03/20/25 20:32> Related Data Home medications: Home Medications ?Medication ?Instructions ?Recorded ?Confirmed ?Last Taken ?Type ezetimibe 10 mg tablet 10 mg PO DAILY 01/02/2202/1311/28/24 20:00 History multivitamin 1 tablet PO DAILY 02/11/23 0 03/01/25 11/29/24 08:00 History omega 9-vjx-dec-fish oil 1,000 mg 1 cap PO DAILY 02/1103/01/25 11/29/24 08:00 History (120 mg-180 mg) capsule (Fish Oil) cholecalciferol (vitamin D3) 25 125 mcg PO DAILY 04/0903/01/25 11/29/24 08:00 History mcg (1,000 unit) capsule irbesartan 150 mg tablet 150 mg PO DAILY 01/12/25 Unknown History isosorbide dinitrate 5 mg tablet 5 mg PO BID 01/12/25 03/01/25 Unknown History (Isordil Titradose) nitroglycerin 0.4 mg sublingual 0.4 mg sublingual Q5-1 5M PRN chest 01/12/25 03/01/25 Unknown History tablet pain pantoprazole 40 mg tablet,delayed 40 mg PO QAM 5 03/01/25 Unknown History release (Protonix) prednisolone acetate 1 % eye 1 drp EACH EYE Q12H 01/1203/01/25 Unknown History drops,suspension insulin degludec 100 unit/mL (3 22 unit subcut DAILY 0 03/01/25 03/01/25 Unknown History mL) subcutaneous pen (Tresiba FlexTouch U-100 insulin) <Charlie Mustafa APRN - Last Filed: 03/20/25 16:21> Allergies/Adverse reactions: Allergies Allergy/AdvReac Type Severity Reaction Status Date / Time Iodinated Contrast Media Allergy Unknown Hives Verified 03/20/25 19:04 lisinopril AdvReac Cough Verified 03/20/25 19:04 <Charlie Mustafa, CLOUD SECURITY ARCHITECT - Last Filed: 03/20/25 16:21> Review of Systems Review of Systems: A 10 system review of systems was completed on the patient and is negative except for what is stated in the HPI. Nursing and ancillary documentation was reviewed. <Chente Goddard MD - Last Filed: 03/20/25 20:32> REPLACED BY [facility] Past Medical History Medical History: Medical History Chronic hypoxemic respiratory failure Peripheral neuropathy Pacemaker Cataracts, bilateral Type 2 diabetes mellitus with diabetic nephropathy Onychomycosis Melanemia Laryngospasms Ischemic cardiomyopathy Hemoptysis Essential hypertension DM renal manif type II, uncontrolled Chronic diastolic congestive heart failure Body mass index (BMI) greater than 30 (01/18/19) Dialysis patient Insulin dependent type 2 diabetes mellitus Stage 5 chronic kidney disease Duodenal ulcer (11/2021) History of colon polyps Chronic anemia Orthostasis Related to autonomic dysfunction from his diabetes. Benign prostatic hyperplasia Chronic obstructive pulmonary disease Diastolic congestive heart failure Echocardiogram on 01/31/2021 showed normal LV systolic function with moderately increased LV wall thickness and grade 1 diastolic dysfunction with an EF estimated 55%. Cerumen impaction Hyperlipidemia, unspecified Coronary artery disease Catheterization and 2005 showed a chronically occluded RCA. In 2016 he had a drug-eluting stent to the proximal left anterior descending. Hypertension <Charlie Mustafa, CLOUD SECURITY ARCHITECT - Last Filed: 03/20/25 16:21> Surgical History Surgical History: Surgical History History of right above knee amputation History of right below knee amputation S/P AKA (above knee amputation) unilateral Right 2022 H/O colonoscopy with polypectomy History of esophagogastroduodenoscopy Status post creation of arteriovenous fistula History of eye surgery Laser eye surgery. History of ankle surgery Left ORIF Status post insertion of drug-eluting stent into left anterior descending (LAD) artery for coronary artery disease Status post cardiac pacemaker procedure His 1st pacemaker was placed in his 30s for sinus pause, syncope and bradycardia and he had generator changes in 2002, 2006, and 2011. His RV lead has high thresholds and he was not pacing in also it was turned off. <Charlie Mustafa, CLOUD SECURITY ARCHITECT - Last Filed: 03/20/25 16:21> Family History Family History: Family History Father Family history of premature coronary heart disease, Onset Age: 53 Cerebrovascular accident Patient's father is Diabetes mellitus Hypertension Family history of cardiovascular disease Kidney disease Sibling Carcinoma of colon, Onset Age: 39 Mother Patient's mother is , Onset Age: 73 <Charlie Mustafa CLOUD SECURITY ARCHITECT - Last Filed: 03/20/25 16:21> Social History Social History: Social History Social History: He still lives with Tabatha at home. His decision maker is anyone of his 3 children mainly Adele. Advanced directives is on chart. Patient wishes to be a full code at this time however does not want any life- sustaining measures for an excessive amount of time. 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 Surrogate decision maker: Lidia Morris, daughter. Code status: Full code. Smoking status: Never smoker Smoking end date: 06/15/84 Additional smoking assessment comments: Smoked briefly as a teenager. Alcohol intake: never Substance use: never Substance use type: does not use Do You Feel Safe in your Home?: Yes Lack of Transportation: No Lack of Food: Never True Current Housing: I Have Housing Concerned About Future Housing: No Difficulty Paying Gas/Electric Bills: No Difficulty Paying for Meds: No Currently Unemployed: No Education: High School Diploma/GED Difficulty w/ Childcare or Family Care: No Living arrangements: with family Additional living arrangements comments: The patient lives with his , Tabatha, who suffers from dementia. 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 Gender identity (if verbalized by the patient): Male Sexual Orientation (if Verbalized by the Patient): Straight or Heterosexual Spiritual care concerns: No Agree to blood products: Yes <Charlie Mustafa APRN - Last Filed: 03/20/25 16:21> Exam Narrative: GENERAL: Well-appearing, well-nourished, and in no acute distress. HEAD: Normocephalic, atraumatic. EYES: PERRLA and EOMI. ENT: Nares clear, no rhinorrhea or epistaxis. Mucous membranes moist. NECK: Supple. CHEST: Clear to auscultation. No respiratory distress. HEART: Regular rate and rhythm. No murmur heard. Normal peripheral pulses. ABDOMEN: Soft, nontender, nondistended, normal active bowel sounds. EXTREMITIES: Normal range of motion BKA right lower extremity. No edema. SKIN: Warm, dry, no rash. NEURO: No focal deficits. Alert and oriented x3. PSYCH: Normal mood and affect. <Chente Goddard MD - Last Filed: 03/20/25 20:32> Course Vital Signs Vital signs: Vital Signs Temperature 36.9 C 03/20/25 16:06 Pulse Rate 98 03/20/25 16:06 Respiratory Rate 18 03/20/25 16:06 Blood Pressure 146/79 H 03/20/25 16:06 Pulse Oximetry 94 03/20/25 16:06 Oxygen Delivery Room Air 03/20/25 16:06 Temperature 36.9 C 03/20/25 16:06 Pulse Rate 98 03/20/25 19:24 Respiratory Rate 20 03/20/25 19:24 Blood Pressure 182/90 H 03/20/25 19:24 Pulse Oximetry 98 03/20/25 19:24 Oxygen Delivery Room Air 03/20/25 16:06 <Charlie Mustafa APRN - Last Filed: 03/20/25 16:21> Vital Signs Temperature 36.9 C 03/20/25 16:06 Pulse Rate 98 03/20/25 16:06 Respiratory Rate 18 03/20/25 16:06 Blood Pressure 146/79 H 03/20/25 16:06 Pulse Oximetry 94 03/20/25 16:06 Oxygen Delivery Room Air 03/20/25 16:06 Temperature 36.9 C 03/20/25 16:06 Pulse Rate 98 03/20/25 19:24 Respiratory Rate 20 03/20/25 19:24 Blood Pressure 182/90 H 03/20/25 19:24 Pulse Oximetry 98 03/20/25 19:24 Oxygen Delivery Room Air 03/20/25 16:06 <Chente Goddard MD - Last Filed: 03/20/25 20:32> MDM - Extremity (Nontraumatic) MDM Narrative Medical decision making narrative: Differential diagnosis includes DVT, muscle strain Ultrasound showed evidence of DVT Patient has no shortness of breath or chest pain Case was discussed with Dr. Mcconnell on-call from Nephrology the patient was started on Eliquis <Chente Goddard MD - Last Filed: 03/20/25 20:32> Discharge Plan Discharge Clinical Impression: Acute deep vein thrombosis (DVT) of left lower extremity <Charlie Mustafa APRN - Last Filed: 03/20/25 16:21> Patient Disposition: Home <Charlie Mustafa APRN - Last Filed: 03/20/25 16:21> Condition: Stable <Charlie Mustafa APRN - Last Filed: 03/20/25 16:21> Instructions: Antibiotic Form, Deep Vein Thrombosis (ED) <Charlie Mustafa, CLOUD SECURITY ARCHITECT - Last Filed: 03/20/25 16:21> Additional Instructions: Please call your vascular clinic and tell them that you had a new diagnosis of DVT and you have been started on a blood thinner Eliquis. They will need to know and will decide whether medication should be held for your procedure or whether they will delayed your procedure <Charlie Mustafa, CLOUD SECURITY ARCHITECT - Last Filed: 03/20/25 16:21> Patient Language: Upper Sorbian <Charlie Mustafa, CLOUD SECURITY ARCHITECT - Last Filed: 03/20/25 16:21> Prescriptions: New Eliquis DVT-PE Treat 30D Start 5 mg (74 tabs) tablets,dose pack See Rx Instructions .ROUTE .COMPLEX Qty: 74 0RF Rx Instructions: orally per package directions No Action clopidogrel [Plavix] 75 mg tablet 75 mg PO DAILY Qty: 90 3RF insulin aspart U-100 [Novolog FlexPen U-100 Insulin] 100 unit/mL (3 mL) insulin pen See Rx Instructions subcut USEASDIRECTD MDD 50 90 Days Qty: 45 1RF Rx Instructions: -8 units before meals. Add for high sugar before meals 2 for 50 more than 150 cephalexin 500 mg capsule 500 mg PO Q12H Qty: 14 0RF Rx Instructions: On dialysis days, give first dose after dialysis. omega 0-atc-gfi-fish oil [Fish Oil] 1,000 mg (120 mg-180 mg) capsule 1 cap PO DAILY multivitamin Tablet 1 tablet PO DAILY cholecalciferol (vitamin D3) 25 mcg (1,000 unit) capsule 125 mcg PO DAILY (DME) pen needle, diabetic [BD Ultra-Fine Carla Pen Needle] 32 gauge x 5/32 needle See Rx Instructions .ROUTE .MEDSUPPLY Qty: 400 1RF Rx Instructions: use four times daily albuterol sulfate 90 mcg/actuation HFA aerosol inhaler 1 inh inhalation Q4H PRN (Reason: shortness of breath or wheezing) Qty: 8.5 1RF insulin degludec [Tresiba FlexTouch U-100] 100 unit/mL (3 mL) insulin pen 22 unit subcut DAILY ezetimibe 10 mg tablet 10 mg PO DAILY irbesartan 150 mg tablet 150 mg PO DAILY isosorbide dinitrate [Isordil Titradose] 5 mg tablet 5 mg PO BID Rx Instructions: allow nitrate-free interval of 12-14 hrs per 24-hr period prednisolone acetate 1 % drops,suspension 1 drp EACH EYE Q12H pantoprazole [Protonix] 40 mg tablet,delayed release (DR/EC) 40 mg PO QAM nitroglycerin 0.4 mg tablet, sublingual 0.4 mg sublingual Q5-15M PRN (Reason: chest pain) Rx Instructions: do not exceed 3 doses per episode polyethylene glycol 3350 [Miralax] 17 gram Powder In Packet 17 g PO QAM PRN (Reason: Constipation) Qty: 30 0RF calcium acetate(phosphat bind) 667 mg capsule 667 mg PO TIDWM Qty: 270 3RF furosemide 80 mg tablet 80 mg PO QAM Qty: 90 0RF carvedilol 25 mg tablet 25 mg PO Q12H Qty: 180 3RF Rx Instructions: must administer with a meal/food allopurinol 100 mg tablet 100 mg PO DAILY Qty: 90 3RF atorvastatin 80 mg tablet 80 mg PO HS Qty: 90 1RF semaglutide 1 mg/dose (4 mg/3 mL) pen injector 1 mg subcut WEEKLY Qty: 9 0RF <Charlie Mustafa APRN - Last Filed: 03/20/25 16:21> Follow-up/Referrals: Kishore Rosario DO [Primary Care Provider, Internal Medicine] <Charlie Mustafa APRN - Last Filed: 03/20/25 16:21> Time of Disposition: 20:31 <Charlie Mustafa APRN - Last Filed: 03/20/25 16:21> 20:31 <Chente Goddard MD - Last Filed: 03/20/25 20:32>
[2025-03-20 19:24] VITALS: BP 182/90; PULSE 98; RESP 20; O2SAT 98
[2025-03-20] MEDS: APIXABAN 5 MG TABLET 10 MG PO (21:13)
[2025-03-20 21:20] VITALS: BP 165/89; PULSE 98; RESP 20; O2SAT 95
== END 2025-03-20 21:20 | disposition home or self-care (01) ==
PROVIDERS: Emergency Provider Emergency Medicine; PCP Internal Medicine
DX: I82.442 Acute embolism and thrombosis of left tibial vein (principal); J96.11 Chronic respiratory failure with hypoxia; J44.9 Chronic obstructive pulmonary disease, unspecified; I25.5 Ischemic cardiomyopathy; I25.10 Atherosclerotic heart disease of native coronary artery without angina pectoris; E11.22 Type 2 diabetes mellitus with diabetic chronic kidney disease; I13.2 Hypertensive heart and chronic kidney disease with heart failure and with stage 5 chronic kidney disease, or end stage renal disease; I50.32 Chronic diastolic (congestive) heart failure; N18.5 Chronic kidney disease, stage 5; E11.42 Type 2 diabetes mellitus with diabetic polyneuropathy; E11.29 Type 2 diabetes mellitus with other diabetic kidney complication; N28.9 Disorder of kidney and ureter, unspecified; E78.5 Hyperlipidemia, unspecified; N40.0 Benign prostatic hyperplasia without lower urinary tract symptoms; D64.9 Anemia, unspecified; Z95.5 Presence of coronary angioplasty implant and graft; Z86.0100 Personal history of colon polyps, unspecified; Z87.891 Personal history of nicotine dependence; Z89.511 Acquired absence of right leg below knee; Z89.611 Acquired absence of right leg above knee; Z79.02 Long term (current) use of antithrombotics/antiplatelets; Z79.4 Long term (current) use of insulin; Z79.85 Long-term (current) use of injectable non-insulin antidiabetic drugs; Z79.899 Other long term (current) drug therapy
CPT/HCPCS: 93971; 99284; A9270

== ENCOUNTER 2025-05-24 08:58 | Outpatient (CLI) | payer MEDICARE, SELFPAY ==
--- NOTE | ~2025-05-24 | CT_ITS ---
EXAMINATION: CT abdomen pelvis w con DATE: 05/24/2025 09:24 INDICATION: Hematuria TECHNIQUE: Computed tomography (CT) of the abdomen and pelvis was performed with 100 mL Omnipaque-350 intravenous contrast. Automated exposure control and iterative reconstruction technique were employed. The dose-length product was 978.20 mGy-cm. COMPARISON: 10/14/2022 FINDINGS: Mild emphysema. Compressive atelectasis along the bilateral lung bases. Heart size is normal. Extensive atherosclerotic coronary artery calcific location. Aortic valve and mitral annular calcification. Cardiac pacemaker leads at the right atrium and near the apex of the right ventricle. Multiple splenic and hepatic calcific lesions consistent with old granulomatous disease. Gallbladder, pancreas, bilateral adrenal glands are normal. There are bilateral renal cysts the largest on the right measuring 1.9 cm. 2 mm nonobstructing stone at the lower pole of the right kidney. Bowels including the appendix are normal. Bladder is normal. Prostatomegaly measuring 5.3 x 4.0 cm. There are a few new surgical clips along a 7 cm long linear extension of thickened subdermal soft tissue density which is increased in thickness measuring up to 1.5 cm maximal thickness along the anterior right lower quadrant suggesting interval excisional biopsy. This is additional circumferential edematous skin thickening at the umbilicus. No free intraperitoneal gas or fluid. No pathologically enlarged abdominal or pelvic lymphadenopathy. There is calcified atherosclerosis of the aorta and many of the other arteries which appears likely hemodynamically significant at the origin of the superior mesenteric artery and at the left common iliac artery.. Mild lumbar and moderate to severe lower thoracic spondylosis. Chronic mild anterior wedging at T10-L1. 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 IMPRESSION: 1. 2 mm nonobstructing right renal stone. 2. Interval increase in thickness of linear band of subdermal soft tissue density along the anterior right lower quadrant abdominal wall with several associated surgical clips suggesting prior excisional biopsy. Correlate with clinical/surgical history. 3. Focal mild edematous skin thickening at the umbilicus suspicion of mild cellulitis. 4. Extensive atherosclerotic calcifications likely minimally significant at the origin of the superior mesenteric artery and at the left common iliac artery. 5. Prostatomegaly. 6. Mild emphysema and compressive atelectasis at the bilateral lung bases. Reviewed, dictated and finalized at location A. RING SALESPERSON IMPRESSION: 1. 2 mm nonobstructing right renal stone. 2. Interval increase in thickness of linear band of subdermal soft tissue densi ty along the anterior right lower quadrant abdominal wall with several associat ed surgical clips suggesting prior excisional biopsy. Correlate with clinical/s urgical history. 3. Focal mild edematous skin thickening at the umbilicus suspicion of mild cell ulitis. 4. Extensive atherosclerotic calcifications likely minimally significant at the origin of the superior mesenteric artery and at the left common iliac artery. 5. Prostatomegaly. 6. Mild emphysema and compressive atelectasis at the bilateral lung bases.
== END 2025-05-24 08:59 | disposition home or self-care (01) ==
PROVIDERS: PCP Internal Medicine; Visit Provider Internal Medicine
DX: R31.9 Hematuria, unspecified (principal); J43.9 Emphysema, unspecified; N40.0 Benign prostatic hyperplasia without lower urinary tract symptoms; N20.0 Calculus of kidney
CPT/HCPCS: 74177; Q9967